=== PATIENT | female | born 1940 | race Caucasian/White ===

== ENCOUNTER → 2016-08-22 | Outpatient (CLI) | payer MEDICARE, BC ==
--- NOTE | 2016-08-22 14:01 | CT ---
EXAMINATION TYPE: CT sinus wo con DATE OF EXAM: 08/22/2016 COMPARISON: 05/20/2013 HISTORY: 76-year-old female with pain, Chronic Sinusitis CT DLP: 624.20 mGycm Automated exposure control for dose reduction was used. TECHNIQUE: Noncontrast axial views of the paranasal sinuses were obtained. Coronal reconstructions pe rformed. FINDINGS: The frontal, ethmoid, maxillary and sphenoid sinuses are clear and well pneumatized. There is no mucosal thickening or air-fluid level. Reactive eliza- osteogenesis is not seen. There is no destruction of the osseous vivas of the paranasal sinuses. THE NASAL CAVITY: Previous medial maxillary antrectomies. The osteomeatal complexes are patent. There is cerebral atrophy and hypodensity within the posterior right frontal lobe which was partially visualized on 05/20/2013 as well compatible with old infarct. Orbits and globes have a normal appeara nce. The mastoid air cells and middle ear cavities are well pneumatized. Reformatted images confirm above findings. IMPRESSION: Prior FESS. No significant paranasal sinus disease seen. 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
== END | disposition home or self-care (01) ==
LOC: RADCTMAIN 13:24
PROVIDERS: ATTEND Otolaryngology
DX: J32.9 Chronic sinusitis, unspecified (principal)
CPT/HCPCS: 70486

== ENCOUNTER → 2016-10-03 | Outpatient (CLI) | payer MEDICARE, BC ==
--- NOTE | 2016-10-04 12:53 | CONS ---
DATE OF SERVICE: 10/03/2016 A 76-year-old lady had been evaluated in the sleep center for obstructive sleep apnea-hypopnea syndrome. HISTORY OF PRESENT ILLNESS/SLEEP-WAKE EVALUATION: Patient had been diagnosed with obstructive sleep apnea around 2009, at that time was started on treatment with CPAP and has lost weight and felt that she improved her breathing and stopped using her equipment in 2012. Recently, her daughter slept with her during vacation and daughter showed that she possibly still has some breath problem during the sleep. SLEEP SCHEDULE: Her sleep schedule is not very regular. She is retired and can go to bed at anytime. FALLING ASLEEP: Sometimes has problem with falling asleep. No TV in bedroom. DURING SLEEP: She has very restless sleep and that is why her does not sleep with her in one bed subsequently because she sleeps by herself, no clear information about her snoring at the present time, but she has awakenings with nocturia, restless legs, positive history of sleep talking. She wakes up from sleep about 3 times with one episode of nocturia. No history of hypnagogic hallucination, sleep paralysis or cataplexy. [place] sleepiness scale is 3. PAST MEDICAL HISTORY: Positive for TIA, depression, anxiety, allergy, restless legs. PAST SURGICAL HISTORY: Tonsillectomy, appendectomy, cholecystectomy, hysterectomy, bladder suspension, rotator cuff surgery, hiatal hernia. MEDICATIONS: Lexapro, losartan, atorvastatin, Plavix, nortriptyline, aspirin, Xanax, ropinirole, Singulair, Anna. SOCIAL HISTORY: Negative for smoking or using alcohol at the present time. FAMILY HISTORY: Hypertension, heart problems, arthritis, sinus headaches, cancer. REVIEW OF SYSTEMS: Awakenings from sleep, tiredness during the day. No fevers. No double vision. No recent chest pain. No shortness of breath. No abdominal pain. No bleeding episodes. No blood in urine. No seizure episodes. PHYSICAL EXAMINATION:~ During physical exam, a 76-year-old lady without distress. VITAL SIGNS:~ BP 138/83, HR 94, RR 16, height 5 feet 2-1/2 inches. Weight 144. BMI 25. Neck 13-1/2 inches in circumference. Temperature 98.3. Oxygen saturation room air 95%. HEENT: PERRLA. EOMI. Evaluation of the oropharynx showed low position of soft palate, showed distance between soft palate and pharyngeal wall. Some restriction of the nasal breathing on the left side. NECK: Supple. No JVD. Thyroid is not palpable. LUNGS: Clear to percussion and to auscultation. Good air exchange. No wheezing or rhonchi. HEART: S1, S2, regular. No murmurs, gallops or rubs. ABDOMEN: Soft and nontender. Bowel sounds are present. No organomegaly appreciated. EXTREMITIES: No clubbing or cyanosis. MARRIAGE THERAPIST: Awake, alert and oriented x3. Cranial nerves 2 to 7 intact. There is no fasciculation or atrophy noted. No focal deficits observed. IMPRESSION: 1. Obstructive sleep apnea-hypopnea syndrome diagnosed in 2009. Patient stopped using her CPAP equipment in 2012. Presently wakes up from sleep multiple times with nocturia. According to her daughter may have abnormalities of respiration at the present time. 2. Restless leg syndrome on treatment with ropinirole. 3. History of transient ischemia attack. 4. Hyperlipidemia. 5. History of depression. 6. History of anxiety. 7. Status post carotid endarterectomy on the right side. 8. Allergies. 9. Status post tonsillectomy. 10. Status post appendectomy. 11. Status post cholecystectomy. 12. Status post hysterectomy. 13. Status post bladder suspension. 14. Status post surgical treatment for hiatal hernia. 15. Status post surgery for rotator cuff. PLAN: 1. Polysomnography for evaluation of patient's breathing during sleep. 2. CPAP/BiPAP titration if sleep study confirms obstructive sleep apnea- hypopnea syndrome. 3. Preferable position during sleep on the side. 4. No driving if patient feels any sleepiness. Patient is aware of civil and criminal liability for unsafe driving. 5. I will see patient for follow-up visit to explain results of the testing and following plan. Thank you very much for referring this patient for consultation. Sincerely, Rk White MD, PhD, FAASM Diplomat of [place] [employer] Sleep Medicine Board by [place] [employer] [place] [employer] [facility] [place] [facility]
== END | disposition home or self-care (01) ==
LOC: SLEEP 10:55
PROVIDERS: ATTEND Internal Medicine
DX: G47.33 Obstructive sleep apnea (adult) (pediatric) (principal); G25.81 Restless legs syndrome; E78.5 Hyperlipidemia, unspecified; T78.40XA Allergy, unspecified, initial encounter; F32.9 Major depressive disorder, single episode, unspecified; F41.9 Anxiety disorder, unspecified; Z86.73 Personal history of transient ischemic attack (TIA), and cerebral infarction without residual deficits; Z98.890 Other specified postprocedural states; Z79.899 Other long term (current) drug therapy; Z79.82 Long term (current) use of aspirin; Z79.02 Long term (current) use of antithrombotics/antiplatelets
CPT/HCPCS: 99211

== ENCOUNTER 2016-12-17 14:46 | Observation (INO) | payer MEDICARE, BC ==
[2016-12-17] MEDS ORDERED: ASPIRIN 81 MG PO STA (15:41)
[2016-12-17] MEDS ORDERED: NITROGLYCERIN SL TABS 0.4 MG TAB SUBLINGUAL STA ×3 (15:41)
[2016-12-17] MEDS ORDERED: NITROGLYCERIN OINT 1 INCH/GM PACKET TOPICAL STA (15:41)
--- NOTE | 2016-12-17 15:45 | ED ---
General Adult HPI - General Chief complaint: Chest Pain Stated complaint: hypertension Time Seen by Provider: 12/17/16 15:05 Source: patient, RN notes reviewed Mode of arrival: wheelchair Limitations: no limitations - History of Present Illness Initial comments: Patient is a pleasant 76-year-old female presenting to the emergency Department with mild chest pressure and hypertension. Patient states she did notice mild chest pressure around 9:30 this morning. This has been steady throughout most the day. Patient has had some similar symptoms previously however is unclear why. Patient did follow-up with her doctor today for a routine appointment and was told her blood pressure was high and to come to the emergency department. Patient does have a history of hypertension and recently had her blood pressure medication increased. Patient has been taking her medication. No associated dyspnea, nausea nausea, or diaphoresis. No radiation of discomfort. - Related Data Home Medications Medication Instructions Recorded Confirmed ALPRAZolam [Xanax] 0.25 mg PO DAILY PRN 12/17/16 12/17/16 Aspirin EC [Ecotrin Low Dose] 81 mg PO DAILY 12/17/16 12/17/16 Atorvastatin [Lipitor] 10 mg PO HS 12/17/16 12/17/16 Clopidogrel Bisulfate [Plavix] 75 mg PO Q48H 12/17/16 12/17/16 Escitalopram [Lexapro] 40 mg PO DAILY 12/17/16 12/17/16 Famotidine 40 mg PO DAILY 12/17/16 12/17/16 Fexofenadine HCl [Anna Allergy] 180 mg PO DAILY 12/17/16 12/17/16 Losartan [Cozaar] 50 mg PO DAILY 12/17/16 12/17/16 Montelukast [Singulair] 10 mg PO HS 12/17/16 12/17/16 Nortriptyline [Pamelor] 20 mg PO HS 12/17/16 12/17/16 rOPINIRole HCL [Requip] 1 mg PO BID 12/17/16 12/17/16 Allergies Allergy/AdvReac Type Severity Reaction Status Date / Time acetaminophen [From [place]] Allergy Rash/Hives Verified 12/17/16 15:40 hydrocodone [From [place]] Allergy Rash/Hives Verified 12/17/16 15:40 Sulfa (Sulfonamide Allergy Rash/Hives Verified 12/17/16 15:40 Antibiotics) aripiprazole [From Abilify] AdvReac Hallucinati Verified 12/17/16 15:40 ons banana AdvReac Nausea & Verified 12/17/16 15:40 Vomiting & Diarrhea bupropion [From Wellbutrin] AdvReac Hallucinati Verified 12/17/16 15:40 ons codeine AdvReac Nausea & Verified 12/17/16 15:40 Vomiting morphine AdvReac Nausea & Verified 12/17/16 15:40 Vomiting propoxyphene [From Darvon] AdvReac Nausea & Verified 12/17/16 15:40 Vomiting Review of Systems ROS Statement: Those systems with pertinent positive or pertinent negative responses have been documented in the HPI. ROS Other: All systems not noted in ROS Statement are negative. Constitutional: Denies: fever Eyes: Denies: eye pain ENT: Denies: ear pain Respiratory: Denies: cough, dyspnea Cardiovascular: Reports: chest pain Endocrine: Denies: fatigue Gastrointestinal: Denies: abdominal pain Genitourinary: Denies: dysuria Musculoskeletal: Denies: back pain Skin: Denies: rash Neurological: Denies: weakness Past Medical History Past Medical History: GERD/Reflux, Hyperlipidemia, Hypertension Additional Past Medical History / Comment(s): occluded carotid right artery, RLS , seasonal allergies History of Any Multi-Drug Resistant Organisms: None Reported Past Surgical History: Appendectomy, Cholecystectomy, Hysterectomy, Joint Replacement, Tonsillectomy Additional Past Surgical History / Comment(s): bilateral hips Past Psychological History: Depression Smoking Status: Former smoker Past Alcohol Use History: None Reported Past Drug Use History: None Reported General Exam Limitations: no limitations General appearance: alert, in no apparent distress Head exam: Present: atraumatic Eye exam: Present: normal appearance, PERRL ENT exam: Present: normal oropharynx Neck exam: Present: normal inspection Respiratory exam: Present: normal lung sounds bilaterally. Absent: chest wall tenderness Cardiovascular Exam: Present: regular rate, normal rhythm Expanded Peripheral pulses: 2+: Radial (R), Radial (L), Dorsalis Pedis (R), Dorsalis Pedis (L) GI/Abdominal exam: Present: soft. Absent: tenderness Extremities exam: Present: normal inspection. Absent: pedal edema, calf tenderness Neurological exam: Present: alert Psychiatric exam: Present: normal affect, normal mood Skin exam: Present: normal color Course Vital Signs 12/17/16 12/17/16 12/17/16 14:49 15:48 16:15 Temperature 98.6 F Pulse Rate 110 H 100 86 Respiratory 18 18 18 Rate Blood Pressure 220/128 195/105 189/119 O2 Sat by Pulse 99 98 99 Oximetry 12/17/16 16:27 Temperature Pulse Rate 116 H Respiratory 18 Rate Blood Pressure 159/89 O2 Sat by Pulse 94 L Oximetry EKG Findings - EKG Comments: EKG Findings:: Sinus tachycardia 108. CA 132. QRS 76. QT 336. QTc 450. Left axis. LVH criteria. No acute ST change. Inferior Q waves. Medical Decision Making - Medical Decision Making Patient reexamined and resting comfortably in bed. Blood pressure has somewhat improved. Patient updated on results and plan. Case discussed in detail with Dr. alvarado, who will admit for Dr. Wallace. - Lab Data Result diagrams: 12/17/16 15:07 12/17/16 15:07 Lab Results 12/17/16 12/17/16 12/17/16 Range/Units 15:07 15:07 15:07 WBC 9.9 (3.8-10.6) k/uL RBC 5.09 (3.80-5.40) m/uL Hgb 14.8 (11.4-16.0) gm/dL Hct 47.3 H (34.0-46.0) % MCV 93.0 (80.0-100.0) fL MCH 29.0 (25.0-35.0) pg MCHC 31.2 (31.0-37.0) g/dL RDW 14.8 (11.5-15.5) % Plt Count 220 (150-450) k/uL Neutrophils % 63 % Lymphocytes % 27 % Monocytes % 7 % Eosinophils % 1 % Basophils % 0 % Neutrophils # 6.2 (1.3-7.7) k/uL Lymphocytes # 2.7 (1.0-4.8) k/uL Monocytes # 0.7 (0-1.0) k/uL Eosinophils # 0.1 (0-0.7) k/uL Basophils # 0.0 (0-0.2) k/uL Hypochromasia Slight PT (9.0-12.0) sec INR (<1.2) APTT (22.0-30.0) sec Sodium 139 (137-145) mmol/L Potassium 4.6 (3.5-5.1) mmol/L Chloride 102 (98-107) mmol/L Carbon Dioxide 30 (22-30) mmol/L Anion Gap 7 mmol/L BUN 15 (7-17) mg/dL Creatinine 0.70 (0.52-1.04) mg/dL Est GFR (MDRD) Af Amer >60 (>60 ml/min/1.73 sqM) Est GFR (MDRD) Non-Af >60 (>60 ml/min/1.73 sqM) Glucose 86 (74-99) mg/dL Calcium 10.4 H (8.4-10.2) mg/dL Magnesium 1.5 L (1.6-2.3) mg/dL Total Bilirubin 0.4 (0.2-1.3) mg/dL AST 31 (14-36) U/L ALT 54 H (9-52) U/L Alkaline Phosphatase 83 (38-126) U/L Total Creatine Kinase 57 (30-135) U/L CK-MB (CK-2) 2.0 (0.0-2.4) ng/mL CK-MB (CK-2) Rel Index 3.5 Troponin I <0.012 (0.000-0.034) ng/mL Total Protein 6.7 (6.3-8.2) g/dL Albumin 4.1 (3.5-5.0) g/dL 12/17/16 Range/Units 15:07 WBC (3.8-10.6) k/uL RBC (3.80-5.40) m/uL Hgb (11.4-16.0) gm/dL Hct (34.0-46.0) % MCV (80.0-100.0) fL MCH (25.0-35.0) pg MCHC (31.0-37.0) g/dL RDW (11.5-15.5) % Plt Count (150-450) k/uL Neutrophils % % Lymphocytes % % Monocytes % % Eosinophils % % Basophils % % Neutrophils # (1.3-7.7) k/uL Lymphocytes # (1.0-4.8) k/uL Monocytes # (0-1.0) k/uL Eosinophils # (0-0.7) k/uL Basophils # (0-0.2) k/uL Hypochromasia PT 10.1 (9.0-12.0) sec INR 1.0 (<1.2) APTT 23.4 (22.0-30.0) sec Sodium (137-145) mmol/L Potassium (3.5-5.1) mmol/L Chloride (98-107) mmol/L Carbon Dioxide (22-30) mmol/L Anion Gap mmol/L BUN (7-17) mg/dL Creatinine (0.52-1.04) mg/dL Est GFR (MDRD) Af Amer (>60 ml/min/1.73 sqM) Est GFR (MDRD) Non-Af (>60 ml/min/1.73 sqM) Glucose (74-99) mg/dL Calcium (8.4-10.2) mg/dL Magnesium (1.6-2.3) mg/dL Total Bilirubin (0.2-1.3) mg/dL AST (14-36) U/L ALT (9-52) U/L Alkaline Phosphatase (38-126) U/L Total Creatine Kinase (30-135) U/L CK-MB (CK-2) (0.0-2.4) ng/mL CK-MB (CK-2) Rel Index Troponin I (0.000-0.034) ng/mL Total Protein (6.3-8.2) g/dL Albumin (3.5-5.0) g/dL - Radiology Data Radiology results: image reviewed (Chest x-ray shows no acute pulmonary process. ) Disposition Clinical Impression: Chest pain, Hypertension Disposition: ADMITTED IP TO THIS [facility] Referrals: Lan Wallace MD [Primary Care Provider] - 1-2 days Decision Time: 16:43
[2016-12-17] MEDS ORDERED: METOPROLOL TARTRATE 25 MG TAB PO STA (15:46)
[2016-12-17 15:53] LABS: Basophils % (A) 0 %; CH 28.9; CHCM 31.2; Eosinophils # (A) 0.1 k/uL (0-0.7); Eosinophils % (A) 1 %; HCT 47.3 % (34.0-46.0); HDW 2.34; HGB 14.8 gm/dL (11.4-16.0); Hypochromasia Slight; Luc # (Auto) 0.23; Luc % (Auto) 2; Lymphocytes # (A) 2.7 k/uL (1.0-4.8); Lymphocytes % (A) 27 %; MCHC 31.2 g/dL (31.0-37.0); Mean Platelet Volume 7.1; Monocytes # (A) 0.7 k/uL (0-1.0); Monocytes % (A) 7 %; Neutrophils # (A) 6.2 k/uL (1.3-7.7); Neutrophils % (A) 63 %; RBC 5.09 m/uL (3.80-5.40); RDW 14.8 % (11.5-15.5); WBC 9.9 k/uL (3.8-10.6); WBC (Perox) 10.36
[2016-12-17 16:00] LABS: Partial Thromboplastin Time 23.4 sec (22.0-30.0); Prothrombin Time 10.1 sec (9.0-12.0)
[2016-12-17 16:02] LABS: ALT 54 U/L (9-52); AST 31 U/L (14-36); Alkaline Phosphatase 83 U/L (38-126); Anion Gap 7 mmol/L; Blood Urea Nitrogen 15 mg/dL (7-17); Calcium 10.4 mg/dL (8.4-10.2); Carbon Dioxide 30 mmol/L (22-30); Chloride 102 mmol/L (98-107); Glucose 86 mg/dL (74-99); Magnesium 1.5 mg/dL (1.6-2.3); Non-African American GFR(MDRD) >60 (>60 ml/min/1.73 sqM); Potassium 4.6 mmol/L (3.5-5.1); Sodium 139 mmol/L (137-145); Total Bilirubin 0.4 mg/dL (0.2-1.3); Total Protein 6.7 g/dL (6.3-8.2)
[2016-12-17] MEDS ORDERED: MAGNESIUM OXIDE 400 MG TAB PO STA (16:05)
[2016-12-17 16:11] LABS: Creatine Kinase 57 U/L (30-135)
[2016-12-17 16:24] LABS: Troponin I <0.012 ng/mL (0.000-0.034)
--- NOTE | 2016-12-17 16:25 | XR ---
EXAMINATION TYPE: XR chest 2V DATE OF EXAM: 12/17/2016 COMPARISON: 11/01/2011 INDICATION: Chest pain elevated blood pressure TECHNIQUE: Frontal and lateral views of the chest are obtained. FINDINGS: The heart size is normal. The pulmonary vasculature is normal. The lungs are clear. Postsurgical changes are at the right shoulder. EKG leads overlie the chest. IMPRESSION: 1. No acute pulmonary process.
[2016-12-17] MEDS ORDERED: NITROGLYCERIN SL TABS 0.4 MG TAB SUBLINGUAL PRN (16:43)
[2016-12-17] MEDS: NITROGLYCERIN OINT 1 INCH/GM PACKET TOPICAL SCH (18:08)
[2016-12-17] MEDS ORDERED: ALPRAZolam 0.25 MG TAB PO PRN (19:14)
[2016-12-17] MEDS: METOPROLOL TARTRATE 25 MG TAB PO SCH (20:31)
[2016-12-17] MEDS: ACETAMINOPHEN TAB 325 MG TAB PO SCH (20:34)
--- NOTE | 2016-12-17 20:44 | P.HPIM ---
History of Present Illness H&P Date: 12/17/16 Chief Complaint: Chest pressure/hypertension This is a 76-year-old female patient of Dr. Lan Wallcae with chronic stable medical conditions that include GERD hyperlipidemia, restless leg syndrome, seasonal ALLERGIES, obstructive sleep apnea, depression, who presented to the emergency department after being seen in office by Dr. Suh today for an injection in her neck. Patient vital signs were taken she was found to be extremely hypertensive with systolic blood pressure in the 200s. Patient also noted early in the day she had some mild chest pressure which had been steady throughout most of the day. There was no radiation of the pain localized to the chest wall a bandlike pressure, no nausea vomiting shortness of breath or diaphoresis. Given these 2 sets of symptoms patient was directed by physician to be evaluated further and has been admitted for the same. REVIEW OF SYSTEMS GEN.: [ Tired] EYES: [None] HEENT: [Grinds her teeth] NECK: [Chronic neck and shoulder pain] RESPIRATORY: [Some shortness of breath] CARDIOVASCULAR: [Chest pain ] GASTROINTESTINAL: [GERD] GENITOURINARY: [Some urinary incontinence and some stool incontinence] MUSCULOSKELETAL: [Back pain] LYMPHATICS: [None] HEMATOLOGICAL: [None] PSYCHIATRY: [Depression and anxiety] NEUROLOGICAL: [History of headaches, restless leg syndrome] PAST MEDICAL HISTORY Past medical history: Past surgical history: Past psychological history: SOCIAL HISTORY: Additional psychological/social history: Smoking history: Former smoker smoked one pack per day for 30 years Alcohol use history: Denies Drug use history: Denies Illicit drug use: Denies Marital status: Living situation: Lives with Employment: FAMILY HISTORY: Mother: , colon cancer Father: , congestive heart failure One brother: Living, lung disease 3 sisters: All 3 sisters living, one sister has breast cancer HOME MEDICATION: Acetaminophen 650 mg by mouth 3 times a day Clopidogrel 75 mg by mouth daily Aspirin enteric-coated 81 mg by mouth at bedtime Losartan 100 mg by mouth daily Ropinirole 1 mg by mouth twice a day Nortriptyline 20 mg by mouth at bedtime Montelukast 10 mg by mouth at bedtime Famotidine 40 mg by mouth daily Lexapro 40 mg by mouth daily Atorvastatin 10 mg by mouth at bedtime Alprazolam 0.25 mg by mouth daily when necessary ALLERGIES: HYDROCODONE, SULFA, ARIPIPRAZOLE, [place] BUPROPION, CODEINE, MORPHINE, PROPOXYPHENE VITAL SIGNS: [Temperature 97.8, pulse 70, respirations 18, blood pressure 169/84 , oxygen saturation 95% on room air. BMI 24.3 kg/m GENERAL: [Average built, sitting up, comfortable]. EYES: [Pupils equal. Conjunctiva michela]l. HEENT: [External appearance of nose and ears normal, oral cavity grossly normal] . NECK: [JVD not raised; masses not palpable]. HEART: [First and second heart sounds are normal; no edema]. LUNGS:[ Respiratory rate normal; diminished bases to auscultation]. ABDOMEN: [Soft, nontender, liver spleen not palpable, no masses palpable]. LYMPHATICS: [No lymph nodes palpable in the axilla and neck]. PSYCH: [Alert and oriented x3; mood and affect michela]l. NEUROLOGICAL: [Cranial nerves grossly intact; no facial asymmetry, power and sensation grossly intact]. INVESTIGATIONS: CBC grossly unremarkable, calcium 10.4, magnesium 1.5, ALTs 54, troponin less than 0.012 Chest x-ray: No acute pulmonary process ASSESSMENT: -Stable angina in a patient with known history of anxiety -Hypertensive urgency in a patient with known hypertension and had a recent adjustment to her medications -Obstructive sleep apnea patient does not use a CPAP machine currently -Restless leg syndrome -Seasonal ALLERGIES -GERD -Hyperlipidemia -Anxiety depression not otherwise specified PLAN: Home medications reordered, cardiology consulted. Plan of care discussed in detail with the patient at the bedside questions answered she is in agreement we will follow closely. Past Medical History Past Medical History: GERD/Reflux, Hyperlipidemia, Hypertension Additional Past Medical History / Comment(s): occluded carotid right artery, RLS , seasonal allergies History of Any Multi-Drug Resistant Organisms: None Reported Past Surgical History: Appendectomy, Cholecystectomy, Hysterectomy, Joint Replacement, Tonsillectomy Additional Past Surgical History / Comment(s): bilateral hips Past Psychological History: Depression Smoking Status: Former smoker Past Alcohol Use History: None Reported Past Drug Use History: None Reported Medications and Allergies Home Medications Medication Instructions Recorded Confirmed Type ALPRAZolam [Xanax] 0.25 mg PO DAILY PRN 12/17/16 12/17/16 History Acetaminophen [Tylenol] 650 mg PO TID 12/17/16 12/17/16 History Aspirin EC [Ecotrin Low Dose] 81 mg PO HS 12/17/16 12/17/16 History Atorvastatin [Lipitor] 10 mg PO HS 12/17/16 12/17/16 History Clopidogrel Bisulfate [Plavix] 75 mg PO DAILY 12/17/16 12/17/16 History Escitalopram [Lexapro] 40 mg PO DAILY 12/17/16 12/17/16 History Famotidine 40 mg PO DAILY 12/17/16 12/17/16 History Losartan [Cozaar] 100 mg PO DAILY 12/17/16 12/17/16 History Montelukast [Singulair] 10 mg PO HS 12/17/16 12/17/16 History Nortriptyline [Pamelor] 20 mg PO HS 12/17/16 12/17/16 History rOPINIRole HCL [Requip] 1 mg PO BID 12/17/16 12/17/16 History Allergies Allergy/AdvReac Type Severity Reaction Status Date / Time acetaminophen [From [place]] Allergy Rash/Hives Verified 12/17/16 15:40 hydrocodone [From [place]] Allergy Rash/Hives Verified 12/17/16 15:40 Sulfa (Sulfonamide Allergy Rash/Hives Verified 12/17/16 15:40 Antibiotics) aripiprazole [From Abilify] AdvReac Hallucinati Verified 12/17/16 15:40 ons banana AdvReac Nausea & Verified 12/17/16 15:40 Vomiting & Diarrhea bupropion [From Wellbutrin] AdvReac Hallucinati Verified 12/17/16 15:40 ons codeine AdvReac Nausea & Verified 12/17/16 15:40 Vomiting morphine AdvReac Nausea & Verified 12/17/16 15:40 Vomiting propoxyphene [From Darvon] AdvReac Nausea & Verified 12/17/16 15:40 Vomiting Physical Exam Vitals: Vital Signs Temp Pulse Pulse Resp BP BP Pulse Ox 12/17/16 17:35 98 F 66 15 152/90 97 12/17/16 17:11 97.8 F 70 18 169/84 95 12/17/16 16:55 101 H 16 161/102 97 12/17/16 16:27 116 H 18 159/89 94 L 12/17/16 16:15 86 18 189/119 99 12/17/16 15:48 100 18 195/105 98 12/17/16 14:49 98.6 F 110 H 18 220/128 99 Intake and Output 12/17/16 12/17/16 12/17/16 06:59 14:59 22:59 Other: Weight 64.41 kg 64.3 kg Patient Weight 12/18/16 06:59 Weight 64.3 kg Results CBC & Chem 7: 12/17/16 15:07 12/17/16 15:07 Labs: Abnormal Lab Results - Last 24 Hours (Table) 12/17/16 12/17/16 Range/Units 15:07 15:07 Hct 47.3 H (34.0-46.0) % Calcium 10.4 H (8.4-10.2) mg/dL Magnesium 1.5 L (1.6-2.3) mg/dL ALT 54 H (9-52) U/L
[2016-12-17] MEDS ORDERED: ATORVASTATIN 10 MG TAB PO SCH (21:00)
[2016-12-17] MEDS ORDERED: MONTELUKAST 10 MG TAB PO SCH (21:00)
[2016-12-17] MEDS ORDERED: NORTRIPTYLINE 10 MG CAP PO SCH (21:00)
[2016-12-17] MEDS ORDERED: NON-FORMULARY DRUG (Aspirin Ec 81 MG) PO SCH (21:00)
[2016-12-17 21:50] LABS: Creatine Kinase 46 U/L (30-135)
[2016-12-17 22:03] LABS: Creatine Kinase MB 1.5 ng/mL (0.0-2.4); Troponin I <0.012 ng/mL (0.000-0.034)
--- NOTE | 2016-12-17 23:04 | HP ---
HISTORY AND PHYSICAL DATE OF ADMISSION: 12/17/2016 ATTENDING NOTE: This patient was seen and examined by me. I discussed with my nurse practitioner, Ms. Wagoner. The patient presented to Dr. Suh for a steroid injection. She was found to be extremely hypertensive, blood pressure about 200 systolic, also having some chest pain, presented for that. PHYSICAL EXAMINATION: VITAL SIGNS: On presentation, temperature 98.6, pulse 110, respirations 18, blood pressure 220/128, pulse ox 99% on room air. LUNGS: Decreased breath sounds. CARDIOVASCULAR: First and second sounds normal. INVESTIGATIONS: White count 9.9, hemoglobin 14.8. Potassium 4.6, BUN and creatinine are normal. Troponin x2 negative. EKG: Sinus tachycardia. ASSESSMENT: 1. Anterior chest wall pain in a patient with known cardiac risk factors. 2. Gastroesophageal reflux disease. 3. Hyperlipidemia. 4. Essential hypertension with urgency, present on admission. 5. Obstructive sleep apnea. 6. Primary osteoarthritis. 7. Spinal stenosis. 8. Chronically occluded right carotid artery. 9. Restless legs syndrome. 10.Obstructive sleep apnea, uses continuous positive airway pressure. 11.Seasonal allergies. 12.Depression, not otherwise specified. PLAN: Serial cardiac enzymes are in place. Cardiology was consulted. The patient is on aspirin and nitro paste. Care was discussed with the patient. MMODL / IJN: [id number] /
[2016-12-18] MEDS: ACETAMINOPHEN TAB 325 MG TAB PO SCH ×2 (03:05→16:35)
[2016-12-18 03:54] LABS: Cholesterol 104 mg/dL (<200); HDL Cholesterol 74 mg/dL (40-60)
[2016-12-18 04:00] LABS: Creatine Kinase 49 U/L (30-135)
[2016-12-18 04:14] LABS: Creatine Kinase MB 1.6 ng/mL (0.0-2.4); Troponin I <0.012 ng/mL (0.000-0.034)
[2016-12-18] MEDS: NITROGLYCERIN OINT 1 INCH/GM PACKET TOPICAL SCH ×2 (05:44→08:12)
[2016-12-18 08:18] VITALS: RESP 16
[2016-12-18] MEDS ORDERED: AMINOPHYLLINE 500 MG/20 ML VIAL IV PRN (08:49)
[2016-12-18] MEDS ORDERED: REGADENOSON 0.4 MG/5 ML SYRINGE IV ONE (08:49)
[2016-12-18] MEDS ORDERED: ENOXAPARIN 40 MG/0.4 ML SYRINGE SQ SCH (09:00)
[2016-12-18] MEDS ORDERED: ASPIRIN 325 MG TAB PO SCH (09:00)
[2016-12-18] MEDS ORDERED: LOSARTAN 50 MG TAB PO SCH (09:00)
[2016-12-18] MEDS ORDERED: ASPIRIN 81 MG PO SCH (09:00)
[2016-12-18] MEDS ORDERED: FAMOTIDINE 20 MG TAB PO SCH (09:00)
[2016-12-18] MEDS ORDERED: CLOPIDOGREL 75 MG TAB PO SCH (09:00)
[2016-12-18] MEDS ORDERED: ESCITALOPRAM 20 MG TAB PO SCH (09:00)
[2016-12-18] MEDS ORDERED: HYDROCHLOROTHIAZIDE 25 MG TAB PO SCH (09:00)
[2016-12-18] MEDS ORDERED: LORATADINE 10 MG TAB PO SCH (09:00)
--- NOTE | 2016-12-18 11:47 | NM ---
EXAMINATION TYPE: NM stress lexiscan cardiolite DATE OF EXAM: 12/18/2016 COMPARISON: NONE HISTORY: Chest pain TECHNIQUE: After the intravenous administration of 10.4 mCi Tc 99m Sestamibi - Cardiolite resting SP ECT images acquired 45 minutes post injection. The patient received 0.4mg Lexiscan, 30 mCi Tc 99m Sestamibi - Stress images obtained 30 minutes post injection FINDINGS: Review of stress and rest SPECT images demonstrates a single segment apical defect appears slightly m ore pronounced on stress imaging and is most attributable to physiologic apical thinning. Gated anal ysis shows symmetric wall motion on stress and rest images with an estimated left ventricular ejectio n fraction of 62 %. TID of 1.11. IMPRESSION: 1. Single segment apical defect more pronounced on stress imaging that is favored to represent physio logic apical thinning rather than reversible perfusion defect as the remainder of exam is unremarkabl e. 2. Estimated left ventricular ejection fraction of 62%.
[2016-12-18 12:11] VITALS: PULSE 76; TEMP 98.6
[2016-12-18] MEDS: METOPROLOL TARTRATE 25 MG TAB PO SCH (12:24)
--- NOTE | 2016-12-18 12:35 | P.CRDCN ---
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 She follows regularly with Dr. Benitez as an outpatient. She presents to the hospital with complaints of chest pressure and high blood pressure. She states she was at physical therapy yesterday getting massage for her neck and then she presented to Dr. Suh's office for her routine injections in her neck for chronic neck strain. Upon arrival to that appointment her blood pressure was extremely elevated and he sent her to the emergency room. She states she developed chest pressure after being told blood pressure was high and chest pain persisted until she arrived to the hospital. She describes this pain as a pressure type feeling across the entire chest not associated with shortness of breath, dizziness, palpitations, diaphoresis or nausea. She relates this to a typical anxiety attack which she does have a history of. She denies history of coronary artery disease and states she has never suffered a myocardial infarction that she is aware of. Her chest pain has subsided and she is resting comfortably in bed. Blood pressure on arrival 220/128. Current cardiac medications include losartan 100 mg, Lipitor, aspirin and Plavix. She states she saw her PCP approximately a month ago and at that time had elevated blood pressure and he increased her losartan from 50-100 mg daily. EKG reveals sinus mechanism with no acute ST or T-wave abnormalities with moderate criteria for LVH. Review of Systems CONSTITUTIONAL: Denies fever. Denies chills. EYES: Denies blurred vision. Denies vision changes. Denies eye pain. EARS, NOSE, MOUTH & THROAT: Denies headache. Denies sore throat. Denies ear pain. CARDIOVASCULAR: Complains of one episode of chest tightness, resolved. Denies shortness of breath. Denies orthopnea. Denies PND. Denies palpitations. RESPIRATORY: Denies cough. GASTROINTESTINAL: Denies abdominal pain. Denies diarrhea. Denies constipation. Denies nausea. Denies vomiting. MUSCULOSKELETAL: Denies myalgias. INTEGUMENTARY: Denies pruitis. Denies rash. NEUROLOGIC: Denies numbness. Denies tingling. Denies weakness. PSYCHIATRIC: And plans of intermittent anxiety. Denies depression. ENDOCRINE: Denies fatigue. Denies weight change. Denies polydipsia. Denies polyurina. GENITOURINARY: Denies burning, hematuria or urgency with micturation. HEMATOLOGIC: Denies history of anemia. Denies bleeding. Past Medical History Past Medical History: CVA/TIA, GERD/Reflux, Hyperlipidemia, Hypertension, Osteoarthritis (OA), Sleep Apnea/CPAP/BIPAP Additional Past Medical History / Comment(s): DDD, DJD, SPINAL STENOSIS, occluded carotid right artery, RLS, seasonal allergies.CPAP USED. HAD GERD IN PAST NONE SINCE HIATAL HERNIA SX.,CARDIOMYOPATHY History of Any Multi-Drug Resistant Organisms: None Reported Past Surgical History: Adenoidectomy, Appendectomy, Bladder Surgery, Cholecystectomy, Hysterectomy, Joint Replacement, Tonsillectomy Additional Past Surgical History / Comment(s): bilateral hip replacments, partial hysterectomy-still has ovaries, sinus sx,niko cataracts-lens implants, hiatal hernia sx Past Anesthesia/Blood Transfusion Reactions: No Reported Reaction Smoking Status: Former smoker - Past Family History Mother Family Medical History: Cancer Additional Family Medical History / Comment(s): colon cancer Father Family Medical History: Congestive Heart Failure (CHF) Medications and Allergies Home Medications Medication Instructions Recorded Confirmed Type ALPRAZolam [Xanax] 0.25 mg PO DAILY PRN 12/17/16 12/17/16 History Acetaminophen [Tylenol] 650 mg PO TID 12/17/16 12/17/16 History Aspirin EC [Ecotrin Low Dose] 81 mg PO HS 12/17/16 12/17/16 History Atorvastatin [Lipitor] 10 mg PO HS 12/17/16 12/17/16 History Clopidogrel Bisulfate [Plavix] 75 mg PO DAILY 12/17/16 12/17/16 History Escitalopram [Lexapro] 40 mg PO DAILY 12/17/16 12/17/16 History Famotidine 40 mg PO DAILY 12/17/16 12/17/16 History Losartan [Cozaar] 100 mg PO DAILY 12/17/16 12/17/16 History Montelukast [Singulair] 10 mg PO HS 12/17/16 12/17/16 History Nortriptyline [Pamelor] 20 mg PO HS 12/17/16 12/17/16 History rOPINIRole HCL [Requip] 1 mg PO BID 12/17/16 12/17/16 History Allergies Allergy/AdvReac Type Severity Reaction Status Date / Time acetaminophen [From [place]] Allergy Rash/Hives Verified 12/17/16 15:40 hydrocodone [From [place]] Allergy Rash/Hives Verified 12/17/16 15:40 Sulfa (Sulfonamide Allergy Rash/Hives Verified 12/17/16 15:40 Antibiotics) aripiprazole [From Abilify] AdvReac Hallucinati Verified 12/17/16 15:40 ons banana AdvReac Nausea & Verified 12/17/16 15:40 Vomiting & Diarrhea bupropion [From Wellbutrin] AdvReac Hallucinati Verified 12/17/16 15:40 ons codeine AdvReac Nausea & Verified 12/17/16 15:40 Vomiting morphine AdvReac Nausea & Verified 12/17/16 15:40 Vomiting propoxyphene [From Darvon] AdvReac Nausea & Verified 12/17/16 15:40 Vomiting Physical Exam Vitals: Vital Signs Temp Pulse Pulse Resp BP BP Pulse Ox 12/18/16 07:41 96 12/18/16 04:53 98 F 60 18 140/72 97 12/18/16 00:00 98 F 65 18 137/74 94 L 12/17/16 20:00 97.6 F 72 18 145/74 92 L 12/17/16 17:35 98 F 66 15 152/90 97 12/17/16 17:11 97.8 F 70 18 169/84 95 12/17/16 16:55 101 H 16 161/102 97 12/17/16 16:27 116 H 18 159/89 94 L 12/17/16 16:15 86 18 189/119 99 12/17/16 15:48 100 18 195/105 98 12/17/16 14:49 98.6 F 110 H 18 220/128 99 Intake and Output 12/17/16 12/18/16 12/18/16 22:59 06:59 14:59 Other: Weight 64.3 kg GENERAL: This is a 76-year-old female in no apparent distress at the time of my examination. HEENT: Head is atraumatic, normocephalic. Pupils are equal, round. Sclerae anicteric. Conjunctivae are clear. Mucous membranes of the mouth are moist. Neck is supple. There is no jugular venous distention. No carotid bruit is heard. LUNGS: Clear to auscultation no wheezes, rales or rhonchi. No chest wall tenderness is noted on palpation or with deep breathing. HEART: Regular rate and rhythm with systolic ejection murmur at the base, no rubs or gallops. S1 and S2 heard. ABDOMEN: Soft, nontender. Bowel sounds are heard. No organomegaly noted. EXTREMITIES: 2+ peripheral pulses with no evidence of peripheral edema and no calf tenderness noted. NEUROLOGIC: Patient is awake, alert and oriented x3. Results 12/17/16 15:07 12/17/16 15:07 Cardiac Enzymes 12/17/16 12/17/16 12/17/16 Range/Units 15:07 15:07 21:13 AST 31 (14-36) U/L CK-MB (CK-2) 2.0 1.5 (0.0-2.4) ng/mL Troponin I <0.012 <0.012 (0.000-0.034) ng/mL 12/18/16 Range/Units 02:38 AST (14-36) U/L CK-MB (CK-2) 1.6 (0.0-2.4) ng/mL Troponin I <0.012 (0.000-0.034) ng/mL Coagulation 12/17/16 Range/Units 15:07 PT 10.1 (9.0-12.0) sec APTT 23.4 (22.0-30.0) sec Lipids 12/18/16 Range/Units 02:38 Triglycerides 95 (<150) mg/dL Cholesterol 104 (<200) mg/dL HDL Cholesterol 74 H (40-60) mg/dL CBC 12/17/16 Range/Units 15:07 WBC 9.9 (3.8-10.6) k/uL RBC 5.09 (3.80-5.40) m/uL Hgb 14.8 (11.4-16.0) gm/dL Hct 47.3 H (34.0-46.0) % Plt Count 220 (150-450) k/uL Comprehensive Metabolic Panel 12/17/16 Range/Units 15:07 Sodium 139 (137-145) mmol/L Potassium 4.6 (3.5-5.1) mmol/L Chloride 102 (98-107) mmol/L Carbon Dioxide 30 (22-30) mmol/L BUN 15 (7-17) mg/dL Creatinine 0.70 (0.52-1.04) mg/dL Glucose 86 (74-99) mg/dL Calcium 10.4 H (8.4-10.2) mg/dL AST 31 (14-36) U/L ALT 54 H (9-52) U/L Alkaline Phosphatase 83 (38-126) U/L Total Protein 6.7 (6.3-8.2) g/dL Albumin 4.1 (3.5-5.0) g/dL Current Medications Generic Name Dose Route Start Last Admin Trade Name Freq PRN Reason Stop Dose Admin Acetaminophen 650 mg 12/17/16 22:00 12/18/16 03:05 Tylenol Tab PO 650 mg TID SENG Administration Alprazolam 0.25 mg 12/17/16 19:14 Xanax PO DAILY PRN Anxiety Aspirin 325 mg 12/18/16 09:00 Aspirin PO DAILY [facility] Atorvastatin Calcium 10 mg 12/17/16 21:00 12/17/16 20:31 Lipitor PO 10 mg HS [facility] Administration Clopidogrel Bisulfate 75 mg 12/18/16 09:00 Plavix PO DAILY [facility] Enoxaparin Sodium 40 mg 12/18/16 09:00 Lovenox SQ DAILY [facility] Escitalopram Oxalate 40 mg 12/18/16 09:00 Lexapro PO DAILY [facility] Famotidine 40 mg 12/18/16 09:00 Pepcid PO DAILY [facility] Loratadine 10 mg 12/18/16 09:00 Claritin PO DAILY [facility] Losartan Potassium 100 mg 12/18/16 09:00 Cozaar PO DAILY [facility] Metoprolol Tartrate 25 mg 12/17/16 21:00 12/17/16 20:31 Lopressor PO 25 mg BID [facility] Administration Montelukast Sodium 10 mg 12/17/16 21:00 12/17/16 20:31 Singulair PO 10 mg HS [facility] Administration Nitroglycerin 1 inch 12/17/16 18:00 12/18/16 05:44 Nitro-Bid Oint TOPICAL Not Given Q6HR [facility] Nitroglycerin 0.4 mg 12/17/16 16:43 Nitrostat SUBLINGUAL Q5M PRN Chest Pain Nortriptyline HCl 20 mg 12/17/16 21:00 12/17/16 20:31 Pamelor PO 20 mg HS SENG Administration Ropinirole HCl 1 mg 12/17/16 21:00 12/17/16 20:30 Requip PO 1 mg BID SENG Administration Intake and Output 12/17/16 12/18/16 12/18/16 22:59 06:59 14:59 Other: Weight 64.3 kg 12/17/16 15:07 12/17/16 15:07 Assessment and Plan Assessment: ASSESSMENT 1. Chest pain, atypical 2. Hypertensive urgency 3. Dyslipidemia 4. Peripheral vascular disease PLAN Obtain 2-D echocardiogram and Doppler study to assess cardiac structure and function. Perform lexiscan stress test to assess for reversible coronary ischemia. Add hydrochlorothiazide 25 mg daily for blood pressure control. Follow-up with Dr. Benitez in 1-2 weeks. Nurse Practitioner note has been reviewed, I agree with a documented findings and plan of care. Patient was seen and examined.
--- NOTE | 2016-12-18 13:18 | ECHOF ---
Referral Reason:cp, htn MEASUREMENTS -------- HEIGHT: 162.6 cm WEIGHT: 64.0 kg BP: 140/72 RVIDd: 2.8 cm (< 3.3) IVSd: 1.0 cm (0.6 - 1.1) LVIDd: 4.5 cm (3.9 - 5.3) LVPWd: 1.2 cm (0.6 - 1.1) IVSs: 1.7 cm LVIDs: 3.1 cm LVPWs: 1.8 cm LA Diam: 3.2 cm (2.7 - 3.8) LAESV Index (A-L): 27.63 ml/m Ao Diam: 2.9 cm (2.0 - 3.7) AV Cusp: 2.1 cm (1.5 - 2.6) MV EXCURSION: 11.844 mm (> 18.000) MV EF SLOPE: 40 mm/s (70 - 150) EPSS: 0.3 cm MV E Deon: 0.99 m/s MV DecT: 240 ms MV A Deon: 1.06 m/s MV E/A Ratio: 0.93 FINDINGS -------- Sinus rhythm. This was a technically good study. The left ventricular size is normal. There is borderline concentric left ventricular hypertrophy. Overall left ventricular systolic function is normal with, an EF between 55 - 60 %. The right ventricle is normal in size. Normal LA size by volume 22+/-6 ml/m2. The right atrium is normal in size. The aortic valve is trileaflet, and appears structurally normal. No aortic stenosis or regurgitation. The mitral valve leaflets are mildly thickened. [id number] mitral regurgitation is present. The tricuspid valve appears structurally normal. Trace/mild (physiologic) pulmonic regurgitation. The aortic root size is normal. Normal inferior vena cava with normal inspiratory collapse consistent with estimated right atrial pre ssure of 5 mmHg. There is no pericardial effusion. CONCLUSIONS -------- 1. Sinus rhythm. 2. This was a technically good study. 3. There is borderline concentric left ventricular hypertrophy. 4. Overall left ventricular systolic function is normal with, an EF between 55 - 60 %. 5. Normal LA size by volume 22+/-6 ml/m2. 6. The aortic valve is trileaflet, and appears structurally normal. No aortic stenosis or regurgitati on. 7. The mitral valve leaflets are mildly thickened. 8. [id number] mitral regurgitation is present. 9. The tricuspid valve appears structurally normal. 10. Trace/mild (physiologic) pulmonic regurgitation. 11. The aortic root size is normal. 12. Normal inferior vena cava with normal inspiratory collapse consistent with estimated right atrial pressure of 5 mmHg. 13. There is no pericardial effusion. DIRECTOR OF LEARNING: Miranda Holliday RDCS
--- NOTE | 2016-12-18 13:53 | EST ---
EXERCISE STRESS AGE: 76 SEX: F HT: 5'4" WT: 141 PROTOCOL: Lexiscan Cardiolite Stress Test HEART RATE REST: 69 BLOOD PRESSURE REST: 211/91 MAXIMUM HEART RATE ACHIEVED: 95 MAXIMUM BLOOD PRESSURE: 225/93 INDICATIONS: Hypertension. CLINICAL INFORMATION: Baseline rhythm is sinus mechanism, rate of 69, normal axis and intervals. Poor progression. Occasional PACs. Baseline blood pressure 211/91 mmHg. Patient received an injection of Lexiscan. Electrocardiograph monitoring revealed no evidence of diagnostic ischemic ST deviation. Cardiolite was injected per protocol. CONCLUSION: 1. Nondiagnostic electrocardiograph stress testing. 2. Nuclear images will be reported separately. MMODL / IJN: [id number] /
[2016-12-18] MEDS ORDERED: amLODIPine 5 MG TAB PO SCH (15:15)
[2016-12-18 18:24] VITALS: BP 154/78
--- NOTE | 2016-12-19 06:59 | DS ---
DISCHARGE SUMMARY DATE OF ADMISSION: 12/17/16 DATE OF DISCHARGE: 12/18/16. FINAL DIAGNOSES: 1. Hypertensive urgency, essential hypertension. 2. Obstructive sleep apnea and does not use a CPAP machine. 3. Restless legs syndrome. 4. Gastroesophageal reflux disease. 5. Hyperlipidemia. 6. Anxiety, depression, not otherwise specified. 7. Spinal stenosis. 8. Occluded right carotid artery. 9. Restless legs syndrome. HOSPITAL COURSE: This patient presented with some chest pressure and very high blood pressure that was 220/128 at the time of presentation. Norvasc was added. The patient's blood pressure did come down to 154/78 by the time of discharge. The patient did undergo a nuclear stress test. The patient was seen by Dr. Benitez. Okayed to be discharged. On exam, lungs are clear. CARDIOVASCULAR: 1st and 2nd sounds normal. The patient also had a 2-D echocardiogram that showed EF of 55-60%. DISCHARGE MEDICATIONS: 1. Xanax 0.25 p.o. daily p.r.n. 2. Aspirin 81 mg q.h.s. 3. Lipitor 10 mg q.h.s. 4. Plavix 75 mg p.o. daily. 5. Lexapro 40 mg p.o. daily. 6. Pepcid 40 mg p.o. daily. 7. Singulair 10 mg p.o. q.h.s. 8. Pamelor 20 mg q.h.s. 9. Requip 1 mg p.o. b.i.d. 10.Hydrochlorothiazide 25 mg p.o. daily. 11.Cozaar 100 mg p.o. daily. 12.Norvasc 5 mg p.o. q.h.s. Follow with Dr. Benitez on 12/31/16. Follow up with Dr. Wallace in 3 days. Discussion and discharge planning more than 35 minutes. MMODL / IJN: [id number] /
[2016-12-19] MEDS ORDERED: LOSARTAN-HCTZ 50-12.5 MG 1 EACH TAB PO SCH (09:00)
== END 2016-12-18 19:04 | disposition home or self-care (01) ==
LOC: EC 14:46 → 3OBS 16:43
PROVIDERS: ADMIT Hospitalist; ATTEND Hospitalist
DX: I16.0 Hypertensive urgency (principal); I10 Essential (primary) hypertension; G47.33 Obstructive sleep apnea (adult) (pediatric); Z99.89 Dependence on other enabling machines and devices; G25.81 Restless legs syndrome; K21.9 Gastro-esophageal reflux disease without esophagitis; E78.5 Hyperlipidemia, unspecified; I65.21 Occlusion and stenosis of right carotid artery; M48.00 Spinal stenosis, site unspecified; M19.91 Primary osteoarthritis, unspecified site; F32.9 Major depressive disorder, single episode, unspecified; F41.9 Anxiety disorder, unspecified; I73.9 Peripheral vascular disease, unspecified; J30.2 Other seasonal allergic rhinitis; Z79.02 Long term (current) use of antithrombotics/antiplatelets; Z79.82 Long term (current) use of aspirin; Z79.899 Other long term (current) drug therapy; Z88.2 Allergy status to sulfonamides; Z88.5 Allergy status to narcotic agent; Z88.6 Allergy status to analgesic agent; Z88.8 Allergy status to other drugs, medicaments and biological substances; Z91.018 Allergy to other foods; Z87.891 Personal history of nicotine dependence; Z86.73 Personal history of transient ischemic attack (TIA), and cerebral infarction without residual deficits
CPT/HCPCS: 36415; 94760; 93005; 93017; 93306; 80061; 80053; 82550 ×2; 82553 ×2; 83735; 84484 ×2; 85025; 85610; 85730; 71020; 78452; 99285; G0378 ×2; A9500; J2785

== ENCOUNTER 2016-12-19 12:30 | Observation (INO) | payer MEDICARE, BC ==
[2016-12-19] MEDS ORDERED: ONDANSETRON 4 MG/2 ML VIAL IVP STA (12:37)
[2016-12-19] MEDS ORDERED: SODIUM CHLORIDE 0.9% 1,000 ML IV STA ×2 (12:37)
[2016-12-19] MEDS ORDERED: LORazepam 2 MG/ML INJ IV STA (12:46)
--- NOTE | 2016-12-19 12:49 | ED ---
Syncope HPI - General Stated Complaint: Syncope Time Seen by Provider: 12/19/16 12:30 Source: patient, RN notes reviewed Mode of arrival: EMS - History of Present Illness Initial Comments: This is a 76-year-old female was brought in by EMS after having a fall off of a commode was using a bowel movement she felt very nauseated short of breath Very anxious she barely did pass out briefly but denies any head neck or back pain. She was moaning upon arrival states she was very nauseated this was in spite of 4 mg of Zofran administered by paramedics. She denies any head neck back pain no chest pain no overt abdominal pain but she does have nausea. She was seen in this emergency department apparently yesterday for hypertension. She denies any fevers chills sweats loss of function to her upper or lower extremities. He is on blood thinner. MD Complaint: felt faint, collapsed - Related Data Home Medications Medication Instructions Recorded Confirmed ALPRAZolam [Xanax] 0.25 mg PO DAILY PRN 12/17/16 12/19/16 Acetaminophen [Tylenol] 650 mg PO TID 12/17/16 12/19/16 Aspirin EC [Ecotrin Low Dose] 81 mg PO HS 12/17/16 12/19/16 Atorvastatin [Lipitor] 10 mg PO HS 12/17/16 12/19/16 Clopidogrel Bisulfate [Plavix] 75 mg PO DAILY 12/17/16 12/19/16 Escitalopram [Lexapro] 40 mg PO DAILY 12/17/16 12/19/16 Famotidine 40 mg PO DAILY 12/17/16 12/19/16 Montelukast [Singulair] 10 mg PO HS 12/17/16 12/19/16 Nortriptyline [Pamelor] 20 mg PO HS 12/17/16 12/19/16 rOPINIRole HCL [Requip] 1 mg PO BID 12/17/16 12/19/16 Previous Rx's Medication Instructions Recorded Hydrochlorothiazide [Hydrodiuril] 25 mg PO DAILY #30 tab 12/18/16 Losartan [Cozaar] 100 mg PO DAILY tab 12/18/16 amLODIPine [Norvasc] 5 mg PO HS #30 tab 12/18/16 Allergies Allergy/AdvReac Type Severity Reaction Status Date / Time acetaminophen [From [place]] Allergy Rash/Hives Verified 12/19/16 12:43 hydrocodone [From [place]] Allergy Rash/Hives Verified 12/19/16 12:43 Sulfa (Sulfonamide Allergy Rash/Hives Verified 12/19/16 12:43 Antibiotics) aripiprazole [From Abilify] AdvReac Hallucinati Verified 12/19/16 12:43 ons banana AdvReac Nausea & Verified 12/19/16 12:43 Vomiting & Diarrhea bupropion [From Wellbutrin] AdvReac Hallucinati Verified 12/19/16 12:43 ons codeine AdvReac Nausea & Verified 12/19/16 12:43 Vomiting morphine AdvReac Nausea & Verified 12/19/16 12:43 Vomiting propoxyphene [From Darvon] AdvReac Nausea & Verified 12/19/16 12:43 Vomiting Review of Systems ROS Statement: Those systems with pertinent positive or pertinent negative responses have been documented in the HPI. ROS Other: All systems not noted in ROS Statement are negative. Past Medical History Past Medical History: CVA/TIA, GERD/Reflux, Hyperlipidemia, Hypertension, Osteoarthritis (OA), Sleep Apnea/CPAP/BIPAP Additional Past Medical History / Comment(s): DDD, DJD, SPINAL STENOSIS, occluded carotid right artery, RLS, seasonal allergies.CPAP USED. HAD GERD IN PAST NONE SINCE HIATAL HERNIA SX.,CARDIOMYOPATHY History of Any Multi-Drug Resistant Organisms: None Reported Past Surgical History: Adenoidectomy, Appendectomy, Bladder Surgery, Cholecystectomy, Hysterectomy, Joint Replacement, Tonsillectomy Additional Past Surgical History / Comment(s): bilateral hip replacments, partial hysterectomy-still has ovaries, sinus sx,niko cataracts-lens implants, hiatal hernia sx Past Anesthesia/Blood Transfusion Reactions: No Reported Reaction Past Psychological History: Depression Smoking Status: Former smoker - Past Family History Mother Family Medical History: Cancer Additional Family Medical History / Comment(s): colon cancer Father Family Medical History: Congestive Heart Failure (CHF) General Exam - General Exam Comments Initial Comments: This is a well-developed well-nourished awake alert oriented 3 female she is very anxious and noted to be hyperventilating. General appearance: alert, anxious Head exam: Present: atraumatic, normocephalic, normal inspection Eye exam: Present: normal appearance, PERRL, EOMI. Absent: scleral icterus, conjunctival injection, periorbital swelling ENT exam: Present: mucous membranes dry Neck exam: Present: normal inspection. Absent: tenderness, meningismus, lymphadenopathy Respiratory exam: Present: normal lung sounds bilaterally. Absent: respiratory distress, wheezes, rales, rhonchi, stridor Cardiovascular Exam: Present: regular rate, normal rhythm, normal heart sounds. Absent: systolic murmur, diastolic murmur, rubs, gallop, clicks GI/Abdominal exam: Present: soft, normal bowel sounds. Absent: distended, tenderness, guarding, rebound, rigid Extremities exam: Present: normal inspection, full ROM, normal capillary refill. Absent: tenderness, pedal edema, joint swelling, calf tenderness Back exam: Present: normal inspection Neurological exam: Present: alert, oriented X3, CN II-XII intact Psychiatric exam: Present: normal affect, normal mood Skin exam: Present: warm, dry, intact, normal color. Absent: rash Course Vital Signs 12/19/16 12/19/16 12:35 15:07 Temperature 96.9 F L Pulse Rate 89 16 L Respiratory 18 18 Rate Blood Pressure 154/78 164/80 O2 Sat by Pulse 98 98 Oximetry - Reevaluation(s) Reevaluation #1: 12/19/16 15:09 Reevaluation patient reveals she is awake alert no improved. EKG Findings - EKG Results: EKG: interpreted by HIRO, sinus rhythm (Sinus rhythm rate of 88. Interval 134 QRS 70 daily since received 4:30/520 old inferior changes nonspecific inferior changes unifocal PVCs) Medical Decision Making - Medical Decision Making Patient remains awake alert oriented she has some recall of the events today she is not recall passing out a second time. - Lab Data Result diagrams: 12/19/16 13:20 12/19/16 13:20 Lab Results 12/19/16 12/19/16 12/19/16 Range/Units 13:20 13:20 13:20 WBC 8.7 (3.8-10.6) k/uL RBC 5.15 (3.80-5.40) m/uL Hgb 15.1 (11.4-16.0) gm/dL Hct 47.7 H (34.0-46.0) % MCV 92.7 (80.0-100.0) fL MCH 29.3 (25.0-35.0) pg MCHC 31.6 (31.0-37.0) g/dL RDW 13.4 (11.5-15.5) % Plt Count 192 (150-450) k/uL Neutrophils % 68 % Lymphocytes % 23 % Monocytes % 6 % Eosinophils % 0 % Basophils % 0 % Neutrophils # 6.0 (1.3-7.7) k/uL Lymphocytes # 2.0 (1.0-4.8) k/uL Monocytes # 0.6 (0-1.0) k/uL Eosinophils # 0.0 (0-0.7) k/uL Basophils # 0.0 (0-0.2) k/uL PT (9.0-12.0) sec INR (<1.2) APTT (22.0-30.0) sec Sodium 139 (137-145) mmol/L Potassium 3.5 (3.5-5.1) mmol/L Chloride 105 (98-107) mmol/L Carbon Dioxide 21 L (22-30) mmol/L Anion Gap 13 mmol/L BUN 18 H (7-17) mg/dL Creatinine 0.77 (0.52-1.04) mg/dL Est GFR (MDRD) Af Amer >60 (>60 ml/min/1.73 sqM) Est GFR (MDRD) Non-Af >60 (>60 ml/min/1.73 sqM) Glucose 147 H (74-99) mg/dL Calcium 9.6 (8.4-10.2) mg/dL Total Bilirubin 0.6 (0.2-1.3) mg/dL AST 28 (14-36) U/L ALT 55 H (9-52) U/L Alkaline Phosphatase 76 (38-126) U/L Total Creatine Kinase 60 (30-135) U/L CK-MB (CK-2) 2.2 (0.0-2.4) ng/mL CK-MB (CK-2) Rel Index 3.7 Troponin I <0.012 (0.000-0.034) ng/mL Total Protein 6.2 L (6.3-8.2) g/dL Albumin 3.6 (3.5-5.0) g/dL Amylase 66 (30-110) U/L Lipase 124 (23-300) U/L 12/19/16 Range/Units 13:20 WBC (3.8-10.6) k/uL RBC (3.80-5.40) m/uL Hgb (11.4-16.0) gm/dL Hct (34.0-46.0) % MCV (80.0-100.0) fL MCH (25.0-35.0) pg MCHC (31.0-37.0) g/dL RDW (11.5-15.5) % Plt Count (150-450) k/uL Neutrophils % % Lymphocytes % % Monocytes % % Eosinophils % % Basophils % % Neutrophils # (1.3-7.7) k/uL Lymphocytes # (1.0-4.8) k/uL Monocytes # (0-1.0) k/uL Eosinophils # (0-0.7) k/uL Basophils # (0-0.2) k/uL PT 10.7 (9.0-12.0) sec INR 1.1 (<1.2) APTT 18.1 L (22.0-30.0) sec Sodium (137-145) mmol/L Potassium (3.5-5.1) mmol/L Chloride (98-107) mmol/L Carbon Dioxide (22-30) mmol/L Anion Gap mmol/L BUN (7-17) mg/dL Creatinine (0.52-1.04) mg/dL Est GFR (MDRD) Af Amer (>60 ml/min/1.73 sqM) Est GFR (MDRD) Non-Af (>60 ml/min/1.73 sqM) Glucose (74-99) mg/dL Calcium (8.4-10.2) mg/dL Total Bilirubin (0.2-1.3) mg/dL AST (14-36) U/L ALT (9-52) U/L Alkaline Phosphatase (38-126) U/L Total Creatine Kinase (30-135) U/L CK-MB (CK-2) (0.0-2.4) ng/mL CK-MB (CK-2) Rel Index Troponin I (0.000-0.034) ng/mL Total Protein (6.3-8.2) g/dL Albumin (3.5-5.0) g/dL Amylase (30-110) U/L Lipase (23-300) U/L - Radiology Data Radiology results: report reviewed (I did review the imaging and reports no acute findings.), image reviewed Critical Care Time Critical Care Time: Yes Critical Care Time: Critical care time 32 minutes which includes monitoring the EMS run and discussed with paramedics the findings upon their initial evaluation. History physical labs x-rays. Reevaluation patient several occasions review the imaging as well as the labs discussed with the patient family members during the findings. Discussion with the admitting physician service. Shortness and documentation of the above Disposition Clinical Impression: Syncope and collapse, Frequent PVCs Disposition: ADMITTED IP TO THIS [facility] Condition: Stable Referrals: Lan Wallace MD [Primary Care Provider] - 1-2 days
[2016-12-19 13:56] LABS: ALT 55 U/L (9-52); AST 28 U/L (14-36); Alkaline Phosphatase 76 U/L (38-126); Amylase 66 U/L (30-110); Anion Gap 13 mmol/L; Basophils % (A) 0 %; Blood Urea Nitrogen 18 mg/dL (7-17); CH 29.1; CHCM 31.5; Calcium 9.6 mg/dL (8.4-10.2); Carbon Dioxide 21 mmol/L (22-30); Chloride 105 mmol/L (98-107); Eosinophils % (A) 0 %; Glucose 147 mg/dL (74-99); HCT 47.7 % (34.0-46.0); HDW 2.43; HGB 15.1 gm/dL (11.4-16.0); Luc # (Auto) 0.17; Luc % (Auto) 2; Lymphocytes % (A) 23 %; MCH 29.3 pg (25.0-35.0); MCHC 31.6 g/dL (31.0-37.0); MCV 92.7 fL (80.0-100.0); Mean Platelet Volume 6.7; Monocytes # (A) 0.6 k/uL (0-1.0); Monocytes % (A) 6 %; Neutrophils % (A) 68 %; Non-African American GFR(MDRD) >60 (>60 ml/min/1.73 sqM); Potassium 3.5 mmol/L (3.5-5.1); RBC 5.15 m/uL (3.80-5.40); RDW 13.4 % (11.5-15.5); Sodium 139 mmol/L (137-145); Total Bilirubin 0.6 mg/dL (0.2-1.3); Total Protein 6.2 g/dL (6.3-8.2); WBC 8.7 k/uL (3.8-10.6); WBC (Perox) 8.95
[2016-12-19 14:00] LABS: INR 1.1 (<1.2); Prothrombin Time 10.7 sec (9.0-12.0)
[2016-12-19 14:08] LABS: Creatine Kinase 60 U/L (30-135)
--- NOTE | 2016-12-19 14:08 | XR ---
EXAMINATION TYPE: XR chest 2V DATE OF EXAM: 12/19/2016 COMPARISON: Chest x-ray December 17, 2016. HISTORY: History of hypertension TECHNIQUE: Frontal and lateral views of the chest are obtained. FINDINGS: There is chronic change without suspicious focal air space opacity, pleural effusion, or p neumothorax seen. The cardiac silhouette size is enlarged with atherosclerotic and ectatic thoracic aorta. The osseous structures are demineralized. Metallic anchors from rotator cuff surgery are see n in right humeral head. Cholecystectomy clips are noted. IMPRESSION: Cardiomegaly without acute pulmonary process.
--- NOTE | 2016-12-19 14:09 | XR ---
EXAMINATION TYPE: XR KUB DATE OF EXAM: 12/19/2016 2:03 PM CLINICAL HISTORY: Nausea and vomiting today. TECHNIQUE: Single upright KUB image of the abdomen is obtained. COMPARISON: None. FINDINGS: Scattered gas is seen in non-distended stomach and small bowel loops. Gas is seen in non-di stended colon. Fecal material is seen in nondistended rectum. Cholecystectomy clips are present. Left -sided pelvic phlebolith is seen. Metallic hardware from bilateral hip surgery is partially imaged. N o pneumoperitoneum is identified. There is spurring and facet arthropathy lower lumbar spine. IMPRESSION: Overall nonobstructive bowel gas pattern.
[2016-12-19 14:10] LABS: Partial Thromboplastin Time 18.1 sec (22.0-30.0)
[2016-12-19 14:21] LABS: Creatine Kinase MB 2.2 ng/mL (0.0-2.4); Troponin I <0.012 ng/mL (0.000-0.034)
--- NOTE | 2016-12-19 14:44 | CT ---
EXAMINATION TYPE: CT brain cspine wo con DATE OF EXAM: 12/19/2016 COMPARISON: CT brain October 06, 2015. MRI brain December 10, 2016. HISTORY: Headache and neck pain per order. CT DLP: 1407.4 mGycm. Automated Exposure Control for Dose Reduction was Utilized. TECHNIQUE: CT scan of the head and cervical spine are performed without contrast. FINDINGS: There is no acute intracranial hemorrhage or midline shift identified. There is stable mi ld ventricular and sulcal prominence. Areas of low-attenuation periventricular white matter redemonst rated. Area of old infarct high right frontal region is redemonstrated. Scleral calcification both gl obes is seen. Mucosal thickening bilateral ethmoid and sphenoid sinuses is present. Cervical spine is visualized in its entirety from C1 through upper thoracic levels and demonstrates s traightened alignment without evidence of acute fracture or dislocation. Prevertebral soft tissue ap pears within normal limits. The C1-C2 articulation is within normal limits on the coronal images. Osseous structures are demineralized. Vertebral body heights are maintained. There is moderate disc s pace narrowing and spurring C4-C5 level. There is moderate to severe spurring and disc space narrowin g C5-C6 and C6-C7 levels. Posterior spur disc complexes are effacing anterior thecal sac at these lev els on sagittal images. Review of axial images shows multilevel bilateral uncovertebral facet degener ative changes contributing to multilevel neural foraminal narrowing. There is moderate emphysematous change in the visualized upper lungs. IMPRESSION: 1. There is no acute fracture or dislocation evident in the cervical spine. Demineralization and mult ilevel degenerative changes are present. 2. No acute intracranial hemorrhage or midline shift is seen. There is background mild diffuse cerebr al atrophy and mild to moderate chronic small vessel ischemic change with high right posterior fronta l lobe infarct all redemonstrated. No significant change from prior studies.
[2016-12-19] MEDS ORDERED: ONDANSETRON 4 MG/2 ML VIAL IVP PRN (15:11)
[2016-12-19] MEDS ORDERED: NALOXONE 0.4 MG/ML 1 ML VIAL IV PRN (15:11)
[2016-12-19] MEDS ORDERED: ALPRAZolam 0.25 MG TAB PO PRN (15:14)
[2016-12-19] MEDS ORDERED: SODIUM CHLORIDE 0.9% 1,000 ML IV SCH (15:15)
[2016-12-19] MEDS: ACETAMINOPHEN TAB 325 MG TAB PO SCH ×2 (17:07→22:02)
[2016-12-19 17:10] LABS: Appearance,Urine Clear (Clear); Bilirubin,Urine Negative (Negative); Glucose,Urine (UA) Negative (Negative); Ketones,Urine Negative (Negative); Leukocyte Esterase,Urine Negative (Negative); Nitrite,Urine Negative (Negative); PH, Urine 6.5 (5.0-8.0); Protein,Urine Negative (Negative); Specific Gravity,Urine 1.008 (1.001-1.035); UA Billing (MACRO vs. MICRO) CHEM; Urobilinogen,Urine <2.0 mg/dL (<2.0)
[2016-12-19] MEDS ORDERED: amLODIPine 5 MG TAB PO SCH (21:00)
--- NOTE | 2016-12-19 21:01 | P.PN ---
Progress Note - Text Progress Note Date: 12/19/16 HISTORY OF PRESENT ILLNESS: 76-year-old female patient of Dr. Lan RICH with chronic stable medical conditions include GERD, hyperlipidemia, restless leg syndrome, seasonal ALLERGIES obstructive sleep apnea, depression, was brought in by EMS after having a fall off the commode while she was having a bowel movement. Patient leaned forward to wipe herself lost her balance and fell off the commode and hit her head on the wall and this is lasting she remembers. The next thing she remembers is EMS helping her up off the floor she was unable to get up off the floor independently. She was panicky after that. Of note patient missed breakfast and then did not eat lunch. Admitted for syncope. REVIEW OF SYSTEMS GEN.: [ Tired] EYES: [None] HEENT: [Grinds her teeth] NECK: [Chronic neck and shoulder pain] RESPIRATORY: [Some shortness of breath] CARDIOVASCULAR: [Chest pain ] GASTROINTESTINAL: [GERD] GENITOURINARY: [Some urinary incontinence and some stool incontinence] MUSCULOSKELETAL: [Back pain] LYMPHATICS: [None] HEMATOLOGICAL: [None] PSYCHIATRY: [Depression and anxiety] NEUROLOGICAL: [History of headaches, restless leg syndrome] PAST MEDICAL HISTORY Past medical history: Chest pain, angina, CVA, TIA, GERD, hyperlipidemia, hypertension, osteoarthritis, sleep apnea, does not use a C Pap machine Past surgical history: Adenoidectomy, appendectomy, bladder surgery, cholecystectomy, hysterectomy, joint replacement, tonsillectomy, bilateral hip replacements, partial hysterectomy, bilateral cataracts, lens implants, Past psychological history: Bipolar disorder SOCIAL HISTORY: Additional psychological/social history: Smoking history: Former smoker smoked one pack per day for 30 years Alcohol use history: Denies Drug use history: Denies Illicit drug use: Denies Marital status: Living situation: Lives with Employment: Retired FAMILY HISTORY: Mother: , colon cancer Father: , congestive heart failure One brother: Living, lung disease 3 sisters: All 3 sisters living, one sister has breast cancer HOME MEDICATION: Acetaminophen 650 mg by mouth 3 times a day Clopidogrel 75 mg by mouth daily Aspirin enteric-coated 81 mg by mouth at bedtime Losartan 100 mg by mouth daily Ropinirole 1 mg by mouth twice a day Nortriptyline 20 mg by mouth at bedtime Montelukast 10 mg by mouth at bedtime Famotidine 40 mg by mouth daily Lexapro 40 mg by mouth daily Atorvastatin 10 mg by mouth at bedtime Alprazolam 0.25 mg by mouth daily when necessary ALLERGIES: HYDROCODONE, SULFA, ARIPIPRAZOLE, BANANA, BUPROPION, CODEINE, MORPHINE, PROPOXYPHENE VITAL SIGNS: [Temperature 97.5 pulse 83, respiratory rate 18, blood pressure 139 /77, oxygen saturation 95% on room air. GENERAL: [Average built, sitting up, comfortable]. EYES: [Pupils equal. Conjunctiva michela]l. HEENT: [External appearance of nose and ears normal, oral cavity grossly normal] . NECK: [JVD not raised; masses not palpable]. HEART: [First and second heart sounds are normal; no edema]. LUNGS:[ Respiratory rate normal; diminished bases to auscultation]. ABDOMEN: [Soft, nontender, liver spleen not palpable, no masses palpable]. LYMPHATICS: [No lymph nodes palpable in the axilla and neck]. PSYCH: [Alert and oriented x3; mood and affect michela]l. NEUROLOGICAL: [Cranial nerves grossly intact; no facial asymmetry, power and sensation grossly intact]. ASSESSMENT: -Possible syncope in the differential is possible vasovagal response or due to low blood sugar as a result of skipping meals -Essential hypertension. -Obstructive sleep apnea and does not use a CPAP machine. -Restless leg syndrome. -Gastroesophageal reflux disease. -Hyperlipidemia. -Anxiety depression not otherwise specified. -Spinal stenosis. -Occluded right carotid artery. -Restless leg syndrome. -Bipolar disorder PLAN: Home medications reordered, cardiology consulted, fall precautions initiated. Plan Of care discussed with patient at bedside will follow closely. DIRECTOR BEHAVIORAL HEALTH STATEMENT: Patient Was Seen and Examined by Nurse Practitioner Paula Wagoner in All Elements of the Case Discussed with Attending Dr. Jauregui.
[2016-12-19] MEDS: MONTELUKAST 10 MG TAB PO SCH (22:01)
[2016-12-19] MEDS: ASPIRIN 81 MG PO SCH (22:01)
[2016-12-19] MEDS: ATORVASTATIN 10 MG TAB PO SCH (22:02)
[2016-12-19] MEDS: NORTRIPTYLINE 10 MG CAP PO SCH (22:02)
[2016-12-20 06:20] LABS: Basophils % (A) 0 %; CH 28.1; CHCM 29.1; Eosinophils # (A) 0.1 k/uL (0-0.7); Eosinophils % (A) 1 %; HCT 47.8 % (34.0-46.0); HDW 2.32; Hypochromasia Marked; Luc % (Auto) 3; Lymphocytes # (A) 2.4 k/uL (1.0-4.8); Lymphocytes % (A) 35 %; MCH 28.3 pg (25.0-35.0); MCHC 29.2 g/dL (31.0-37.0); MCV 96.9 fL (80.0-100.0); Mean Platelet Volume 7.3; Monocytes # (A) 0.7 k/uL (0-1.0); Monocytes % (A) 11 %; Neutrophils # (A) 3.5 k/uL (1.3-7.7); Neutrophils % (A) 50 %; RBC 4.94 m/uL (3.80-5.40); RDW 15.1 % (11.5-15.5); WBC 6.9 k/uL (3.8-10.6); WBC (Perox) 6.66
[2016-12-20 06:35] LABS: Anion Gap 4 mmol/L; Blood Urea Nitrogen 14 mg/dL (7-17); Calcium 9.7 mg/dL (8.4-10.2); Carbon Dioxide 27 mmol/L (22-30); Chloride 107 mmol/L (98-107); Glucose 94 mg/dL (74-99); Non-African American GFR(MDRD) >60 (>60 ml/min/1.73 sqM); Potassium 4.4 mmol/L (3.5-5.1); Sodium 138 mmol/L (137-145)
[2016-12-20] MEDS: ENOXAPARIN 40 MG/0.4 ML SYRINGE SQ SCH (07:40)
[2016-12-20] MEDS: ESCITALOPRAM 20 MG TAB PO SCH (07:41)
[2016-12-20] MEDS: CLOPIDOGREL 75 MG TAB PO SCH (07:41)
[2016-12-20] MEDS: FAMOTIDINE 20 MG TAB PO SCH (07:42)
[2016-12-20] MEDS: PSYLLIUM HUSK 100% 6 GM PACKET PO SCH (07:45)
[2016-12-20] MEDS: ACETAMINOPHEN TAB 325 MG TAB PO SCH ×3 (07:45→21:14)
--- NOTE | 2016-12-20 08:09 | HP ---
HISTORY AND PHYSICAL DATE OF ADMISSION: 12/19/2016. ATTENDING NOTE: Patient seen and examined by me. Discussed with my nurse practitioner, Ms. Wagoner. This is a patient who just went home yesterday. Patient had come in with hypertensive urgency and some chest pain. Did undergo a nuclear stress test that was negative. Seen by Dr. Benitez. Patient had a very high blood pressure for which Norvasc was added. Patient was at home sitting on the toilet seat and then leaned forward to wipe herself. Patient lost balance, hit head against the wall and went down. Next thing she remembers was the EMS coming there. Patient became a bit panicky after that. It may be reminded that the patient normally has a small breakfast which she had skipped this morning and did not even have that. EXAMINATION: On examination, temperature 96.9, pulse 89, respirations 18, blood pressure 172/78, pulse ox 98% on 2-L. GENERAL APPEARANCE: Sitting up, comfortable. EYES: Pupils equal. Conjunctivae normal. JVD not raised. Mass not palpable. RESPIRATORY: Effort, lungs are clear. CARDIOVASCULAR: First and second sounds are normal. INVESTIGATIONS: White count 8.7, potassium 3.5. ASSESSMENT: 1. Episode of loss of consciousness after hitting her head against the wall likely concussion for which patient was short lived and recovered. 2. Essential hypertension. 3. Obstructive sleep apnea, does not use CPAP machine. 4. Restless leg syndrome. 5. Gastroesophageal reflux disease. 6. Hyperlipidemia. 7. Anxiety and depression, not otherwise specified. 8. Chronic spinal stenosis. 9. Occluded right carotid artery. PLAN: Home medications are resumed. will keep a close eye on the blood pressure. Telemetry is being monitored. Patient's EKG shows normal sinus rhythm. Cardiology was consulted. Care was discussed with the patient. MMODL / IJN: [id number] /
[2016-12-20] MEDS ORDERED: HYDROCHLOROTHIAZIDE 25 MG TAB PO SCH (09:00)
[2016-12-20] MEDS: LOSARTAN 50 MG TAB PO SCH (09:58)
[2016-12-20 11:46] VITALS: RESP 18
--- NOTE | 2016-12-20 12:15 | P.CRDCN ---
History of Present Illness Consult date: 12/20/16 Chief complaint: Syncopal episode History of present illness: This is a 76-year-old female patient who sees Dr. Benitez in the office as an outpatient with a past medical history significant for hypertension , dyslipidemia, and known occluded right internal carotid artery, was brought to the hospital with syncope. The patient just was admitted to the hospital a few days ago with hypertension urgency where at that point her blood pressure medications were adjusted and she was discharged home in stable medical condition. When she presented last time she was taking losartan for hypertension and she was discharged with losartan as well as Norvasc and hydrochlorothiazide. She was discharged in stable medical condition. She was at home where she was sitting on the toilet and trying to stand up when she lost her consciousness. She does not recall having any chest pain or discomfort but she felt dizzy before she lost her consciousness. Ambulance was called and brought the patient to the emergency department. The EKG showed sinus rhythm with frequent PVCs. The cardiac enzymes were checked and came in to be unremarkable. An orthostatic blood pressure was checked and came to be positive and consistent with orthostatic hypotension. Past Medical History Past Medical History: Chest Pain / Angina, CVA/TIA, GERD/Reflux, Hyperlipidemia , Hypertension, Osteoarthritis (OA), Sleep Apnea/CPAP/BIPAP Additional Past Medical History / Comment(s): DDD, DJD, SPINAL STENOSIS, occluded carotid right artery, RLS, seasonal allergies.CPAP USED. HAD GERD IN PAST NONE SINCE HIATAL HERNIA SX.,CARDIOMYOPATHY History of Any Multi-Drug Resistant Organisms: None Reported Past Surgical History: Adenoidectomy, Appendectomy, Bladder Surgery, Cholecystectomy, Hysterectomy, Joint Replacement, Tonsillectomy Additional Past Surgical History / Comment(s): bilateral hip replacments, partial hysterectomy-still has ovaries, sinus sx,niko cataracts-lens implants, hiatal hernia sx Past Anesthesia/Blood Transfusion Reactions: No Reported Reaction Smoking Status: Former smoker - Past Family History Mother Family Medical History: Cancer Additional Family Medical History / Comment(s): colon cancer Father Family Medical History: Congestive Heart Failure (CHF) Medications and Allergies Home Medications Medication Instructions Recorded Confirmed Type ALPRAZolam [Xanax] 0.25 mg PO DAILY PRN 12/17/16 12/19/16 History Acetaminophen [Tylenol] 650 mg PO TID 12/17/16 12/19/16 History Aspirin EC [Ecotrin Low Dose] 81 mg PO HS 12/17/16 12/19/16 History Atorvastatin [Lipitor] 10 mg PO HS 12/17/16 12/19/16 History Clopidogrel Bisulfate [Plavix] 75 mg PO DAILY 12/17/16 12/19/16 History Escitalopram [Lexapro] 40 mg PO DAILY 12/17/16 12/19/16 History Famotidine 40 mg PO DAILY 12/17/16 12/19/16 History Montelukast [Singulair] 10 mg PO HS 12/17/16 12/19/16 History Nortriptyline [Pamelor] 20 mg PO HS 12/17/16 12/19/16 History rOPINIRole HCL [Requip] 1 mg PO BID 12/17/16 12/19/16 History Hydrochlorothiazide [Hydrodiuril] 25 mg PO DAILY #30 tab 12/18/16 12/19/16 Rx Losartan [Cozaar] 100 mg PO DAILY tab 12/18/16 12/19/16 Rx amLODIPine [Norvasc] 5 mg PO HS #30 tab 12/18/16 12/19/16 Rx Allergies Allergy/AdvReac Type Severity Reaction Status Date / Time acetaminophen [From [place]] Allergy Rash/Hives Verified 12/19/16 12:43 hydrocodone [From [place]] Allergy Rash/Hives Verified 12/19/16 12:43 Sulfa (Sulfonamide Allergy Rash/Hives Verified 12/19/16 12:43 Antibiotics) aripiprazole [From Abilify] AdvReac Hallucinati Verified 12/19/16 12:43 ons banana AdvReac Nausea & Verified 12/19/16 12:43 Vomiting & Diarrhea bupropion [From Wellbutrin] AdvReac Hallucinati Verified 12/19/16 12:43 ons codeine AdvReac Nausea & Verified 12/19/16 12:43 Vomiting morphine AdvReac Nausea & Verified 12/19/16 12:43 Vomiting propoxyphene [From Darvon] AdvReac Nausea & Verified 12/19/16 12:43 Vomiting Physical Exam Vitals: Vital Signs Temp Pulse Pulse Resp BP BP BP 12/20/16 11:41 97.6 F 92 18 12/20/16 07:52 98 16 12/20/16 07:49 97.1 F L 98 16 118/75 84/62 12/20/16 04:00 97.1 F L 73 18 114/62 105/61 12/20/16 00:00 97.2 F L 82 18 12/19/16 20:30 97.5 F L 83 18 12/19/16 17:14 85 16 12/19/16 17:00 97.0 F L 90 18 12/19/16 16:23 98.4 F 90 16 162/92 12/19/16 15:07 16 L 18 164/80 12/19/16 12:35 96.9 F L 89 18 154/78 BP BP Pulse Ox 12/20/16 11:41 125/76 98 12/20/16 07:52 12/20/16 07:49 135/96 98 12/20/16 04:00 129/80 98 12/20/16 00:00 124/87 96 12/19/16 20:30 139/77 95 12/19/16 17:14 12/19/16 17:00 134/73 97 12/19/16 16:23 99 12/19/16 15:07 98 12/19/16 12:35 98 Intake and Output 12/19/16 12/20/16 12/20/16 22:59 06:59 14:59 Intake Total 500 240 Output Total 800 350 Balance -300 -110 Intake: Intake, IV Titration 200 Amount Sodium Chloride 0.9% 1, 200 000 ml @ 100 mls/hr IV . Q10H STA Rx#:[id number] Oral 300 240 Output: Urine 800 350 Other: Voiding Method Toilet Toilet Toilet # Voids 1 1 1 Weight 62.2 kg - Constitutional General appearance: no acute distress - Respiratory Respiratory: bilateral: CTA - Cardiovascular Rhythm: regular Heart sounds: normal: S1, S2 Abnormal Heart Sounds: systolic murmur Results 12/20/16 05:32 12/20/16 05:32 Cardiac Enzymes 12/19/16 12/19/16 12/19/16 Range/Units 13:20 13:20 19:13 AST 28 (14-36) U/L CK-MB (CK-2) 2.2 (0.0-2.4) ng/mL Troponin I <0.012 <0.012 (0.000-0.034) ng/mL 12/20/16 Range/Units 01:14 AST (14-36) U/L CK-MB (CK-2) (0.0-2.4) ng/mL Troponin I <0.012 (0.000-0.034) ng/mL Coagulation 12/19/16 Range/Units 13:20 PT 10.7 (9.0-12.0) sec APTT 18.1 L (22.0-30.0) sec CBC 12/19/16 12/20/16 Range/Units 13:20 05:32 WBC 8.7 6.9 (3.8-10.6) k/uL RBC 5.15 4.94 (3.80-5.40) m/uL Hgb 15.1 14.0 (11.4-16.0) gm/dL Hct 47.7 H 47.8 H (34.0-46.0) % Plt Count 192 188 (150-450) k/uL Comprehensive Metabolic Panel 12/19/16 12/20/16 Range/Units 13:20 05:32 Sodium 139 138 (137-145) mmol/L Potassium 3.5 4.4 (3.5-5.1) mmol/L Chloride 105 107 (98-107) mmol/L Carbon Dioxide 21 L 27 (22-30) mmol/L BUN 18 H 14 (7-17) mg/dL Creatinine 0.77 0.76 (0.52-1.04) mg/dL Glucose 147 H 94 (74-99) mg/dL Calcium 9.6 9.7 (8.4-10.2) mg/dL AST 28 (14-36) U/L ALT 55 H (9-52) U/L Alkaline Phosphatase 76 (38-126) U/L Total Protein 6.2 L (6.3-8.2) g/dL Albumin 3.6 (3.5-5.0) g/dL Current Medications Generic Name Dose Route Start Last Admin Trade Name Freq PRN Reason Stop Dose Admin Acetaminophen 650 mg 12/19/16 16:00 12/20/16 07:45 Tylenol Tab PO 650 mg TID SENG Administration Alprazolam 0.25 mg 12/19/16 15:14 Xanax PO DAILY PRN Anxiety Aspirin 81 mg 12/19/16 21:00 12/19/16 22:01 Aspirin PO 81 mg HS SENG Administration Atorvastatin Calcium 10 mg 12/19/16 21:00 12/19/16 22:02 Lipitor PO 10 mg HS SENG Administration Clopidogrel Bisulfate 75 mg 12/20/16 09:00 12/20/16 07:41 Plavix PO 75 mg DAILY SENG Administration Enoxaparin Sodium 40 mg 12/20/16 09:00 12/20/16 07:40 Lovenox SQ 40 mg DAILY SENG Administration Escitalopram Oxalate 40 mg 12/20/16 09:00 12/20/16 07:41 Lexapro PO 40 mg DAILY SENG Administration Famotidine 40 mg 12/20/16 09:00 12/20/16 07:42 Pepcid PO 40 mg DAILY SENG Administration Losartan Potassium 100 mg 12/20/16 09:00 12/20/16 09:58 Cozaar PO Not Given DAILY SENG Montelukast Sodium 10 mg 12/19/16 21:00 12/19/16 22:01 Singulair PO 10 mg HS SENG Administration Naloxone HCl 0.2 mg 12/19/16 15:11 Narcan IV Q2M PRN Opioid Reversal Nortriptyline HCl 20 mg 12/19/16 21:00 12/19/16 22:02 Pamelor PO 20 mg HS SENG Administration Ondansetron HCl 4 mg 12/19/16 15:11 Zofran IVP Q8HR PRN Nausea And Vomiting Psyllium Hydrophilic Mucilloid 6 gm 12/20/16 09:00 12/20/16 07:45 Metamucil PO 6 gm DAILY SENG Administration Ropinirole HCl 1 mg 12/19/16 21:00 12/20/16 07:41 Requip PO 1 mg BID SENG Administration Intake and Output 12/19/16 12/20/16 12/20/16 22:59 06:59 14:59 Intake Total 500 240 Output Total 800 350 Balance -300 -110 Intake: Intake, IV Titration 200 Amount Sodium Chloride 0.9% 1, 200 000 ml @ 100 mls/hr IV . Q10H STA Rx#:[id number] Oral 300 240 Output: Urine 800 350 Other: Voiding Method Toilet Toilet Toilet # Voids 1 1 1 Weight 62.2 kg 12/20/16 05:32 12/20/16 05:32 Assessment and Plan Assessment: This is a pleasant 76-year-old female patient with hypertension was brought to the hospital with syncope. She was found to have orthostatic hypotension. At this point we will stop the Norvasc, decrease the dose of hydrochlorothiazide , continue losartan, and continue following up with the patient for additional 24 hours. The patient will be discharged home tomorrow.
[2016-12-20] MEDS: HYDROCHLOROTHIAZIDE 12.5 MG CAP PO SCH (14:20)
--- NOTE | 2016-12-20 16:01 | P.HPIM ---
History of Present Illness H&P Date: 12/19/16 Chief Complaint: Dizziness lightheadedness HISTORY OF PRESENT ILLNESS: 76-year-old female patient of Dr. Lan RICH with chronic stable medical conditions include GERD, hyperlipidemia, restless leg syndrome, seasonal ALLERGIES obstructive sleep apnea, depression, was brought in by EMS after having a fall off the commode while she was having a bowel movement. Patient leaned forward to wipe herself lost her balance and fell off the commode and hit her head on the wall and this is lasting she remembers. The next thing she remembers is EMS helping her up off the floor she was unable to get up off the floor independently. She was panicky after that. Of note patient missed breakfast and then did not eat lunch. Admitted for syncope. REVIEW OF SYSTEMS GEN.: [ Tired] EYES: [None] HEENT: [Grinds her teeth] NECK: [Chronic neck and shoulder pain] RESPIRATORY: [Some shortness of breath] CARDIOVASCULAR: [Chest pain ] GASTROINTESTINAL: [GERD] GENITOURINARY: [Some urinary incontinence and some stool incontinence] MUSCULOSKELETAL: [Back pain] LYMPHATICS: [None] HEMATOLOGICAL: [None] PSYCHIATRY: [Depression and anxiety] NEUROLOGICAL: [History of headaches, restless leg syndrome] PAST MEDICAL HISTORY Past medical history: Chest pain, angina, CVA, TIA, GERD, hyperlipidemia, hypertension, osteoarthritis, sleep apnea, does not use a C Pap machine Past surgical history: Adenoidectomy, appendectomy, bladder surgery, cholecystectomy, hysterectomy, joint replacement, tonsillectomy, bilateral hip replacements, partial hysterectomy, bilateral cataracts, lens implants, Past psychological history: Bipolar disorder SOCIAL HISTORY: Additional psychological/social history: Smoking history: Former smoker smoked one pack per day for 30 years Alcohol use history: Denies Drug use history: Denies Illicit drug use: Denies Marital status: Living situation: Lives with Employment: Retired FAMILY HISTORY: Mother: , colon cancer Father: , congestive heart failure One brother: Living, lung disease 3 sisters: All 3 sisters living, one sister has breast cancer HOME MEDICATION: Acetaminophen 650 mg by mouth 3 times a day Clopidogrel 75 mg by mouth daily Aspirin enteric-coated 81 mg by mouth at bedtime Losartan 100 mg by mouth daily Ropinirole 1 mg by mouth twice a day Nortriptyline 20 mg by mouth at bedtime Montelukast 10 mg by mouth at bedtime Famotidine 40 mg by mouth daily Lexapro 40 mg by mouth daily Atorvastatin 10 mg by mouth at bedtime Alprazolam 0.25 mg by mouth daily when necessary ALLERGIES: HYDROCODONE, SULFA, ARIPIPRAZOLE, BANANA, BUPROPION, CODEINE, MORPHINE, PROPOXYPHENE VITAL SIGNS: [Temperature 97.5 pulse 83, respiratory rate 18, blood pressure 139 /77, oxygen saturation 95% on room air. GENERAL: [Average built, sitting up, comfortable]. EYES: [Pupils equal. Conjunctiva michela]l. HEENT: [External appearance of nose and ears normal, oral cavity grossly normal] . NECK: [JVD not raised; masses not palpable]. HEART: [First and second heart sounds are normal; no edema]. LUNGS:[ Respiratory rate normal; diminished bases to auscultation]. ABDOMEN: [Soft, nontender, liver spleen not palpable, no masses palpable]. LYMPHATICS: [No lymph nodes palpable in the axilla and neck]. PSYCH: [Alert and oriented x3; mood and affect michela]l. NEUROLOGICAL: [Cranial nerves grossly intact; no facial asymmetry, power and sensation grossly intact]. ASSESSMENT: -Possible syncope in the differential is possible vasovagal response or due to low blood sugar as a result of skipping meals -Essential hypertension. -Obstructive sleep apnea and does not use a CPAP machine. -Restless leg syndrome. -Gastroesophageal reflux disease. -Hyperlipidemia. -Anxiety depression not otherwise specified. -Spinal stenosis. -Occluded right carotid artery. -Restless leg syndrome. -Bipolar disorder PLAN: Home medications reordered, cardiology consulted, fall precautions initiated. Plan Of care discussed with patient at bedside will follow closely. VITREO RETINAL SURGEON STATEMENT: Patient Was Seen and Examined by Nurse Practitioner Paula Wagoner in All Elements of the Case Discussed with Attending Dr. Jauregui. Past Medical History Past Medical History: Chest Pain / Angina, CVA/TIA, GERD/Reflux, Hyperlipidemia , Hypertension, Osteoarthritis (OA), Sleep Apnea/CPAP/BIPAP Additional Past Medical History / Comment(s): DDD, DJD, SPINAL STENOSIS, occluded carotid right artery, RLS, seasonal allergies.CPAP USED. HAD GERD IN PAST NONE SINCE HIATAL HERNIA SX.,CARDIOMYOPATHY History of Any Multi-Drug Resistant Organisms: None Reported Past Surgical History: Adenoidectomy, Appendectomy, Bladder Surgery, Cholecystectomy, Hysterectomy, Joint Replacement, Tonsillectomy Additional Past Surgical History / Comment(s): bilateral hip replacments, partial hysterectomy-still has ovaries, sinus sx,niko cataracts-lens implants, hiatal hernia sx Past Anesthesia/Blood Transfusion Reactions: No Reported Reaction Smoking Status: Former smoker - Past Family History Mother Family Medical History: Cancer Additional Family Medical History / Comment(s): colon cancer Father Family Medical History: Congestive Heart Failure (CHF) Medications and Allergies Home Medications Medication Instructions Recorded Confirmed Type ALPRAZolam [Xanax] 0.25 mg PO DAILY PRN 12/17/16 12/19/16 History Acetaminophen [Tylenol] 650 mg PO TID 12/17/16 12/19/16 History Aspirin EC [Ecotrin Low Dose] 81 mg PO HS 12/17/16 12/19/16 History Atorvastatin [Lipitor] 10 mg PO HS 12/17/16 12/19/16 History Clopidogrel Bisulfate [Plavix] 75 mg PO DAILY 12/17/16 12/19/16 History Escitalopram [Lexapro] 40 mg PO DAILY 12/17/16 12/19/16 History Famotidine 40 mg PO DAILY 12/17/16 12/19/16 History Montelukast [Singulair] 10 mg PO HS 12/17/16 12/19/16 History Nortriptyline [Pamelor] 20 mg PO HS 12/17/16 12/19/16 History rOPINIRole HCL [Requip] 1 mg PO BID 12/17/16 12/19/16 History Hydrochlorothiazide [Hydrodiuril] 25 mg PO DAILY #30 tab 12/18/16 12/19/16 Rx Losartan [Cozaar] 100 mg PO DAILY tab 12/18/16 12/19/16 Rx amLODIPine [Norvasc] 5 mg PO HS #30 tab 12/18/16 12/19/16 Rx Allergies Allergy/AdvReac Type Severity Reaction Status Date / Time acetaminophen [From [place]] Allergy Rash/Hives Verified 12/19/16 12:43 hydrocodone [From [place]] Allergy Rash/Hives Verified 12/19/16 12:43 Sulfa (Sulfonamide Allergy Rash/Hives Verified 12/19/16 12:43 Antibiotics) aripiprazole [From Abilify] AdvReac Hallucinati Verified 12/19/16 12:43 ons banana AdvReac Nausea & Verified 12/19/16 12:43 Vomiting & Diarrhea bupropion [From Wellbutrin] AdvReac Hallucinati Verified 12/19/16 12:43 ons codeine AdvReac Nausea & Verified 12/19/16 12:43 Vomiting morphine AdvReac Nausea & Verified 12/19/16 12:43 Vomiting propoxyphene [From Darvon] AdvReac Nausea & Verified 12/19/16 12:43 Vomiting Physical Exam Vitals: Vital Signs Temp Pulse Pulse Resp BP BP BP 12/20/16 15:29 97.1 F L 86 18 126/70 12/20/16 15:13 98 18 12/20/16 14:19 117/65 12/20/16 11:41 97.6 F 92 18 12/20/16 07:52 98 16 12/20/16 07:49 97.1 F L 98 16 118/75 84/62 12/20/16 04:00 97.1 F L 73 18 114/62 105/61 12/20/16 00:00 97.2 F L 82 18 12/19/16 20:30 97.5 F L 83 18 12/19/16 17:14 85 16 12/19/16 17:00 97.0 F L 90 18 12/19/16 16:23 98.4 F 90 16 162/92 BP BP Pulse Ox 12/20/16 15:29 98 12/20/16 15:13 12/20/16 14:19 12/20/16 11:41 125/76 98 12/20/16 07:52 12/20/16 07:49 135/96 98 12/20/16 04:00 129/80 98 12/20/16 00:00 124/87 96 12/19/16 20:30 139/77 95 12/19/16 17:14 12/19/16 17:00 134/73 97 12/19/16 16:23 99 Intake and Output 12/20/16 12/20/16 12/20/16 06:59 14:59 22:59 Intake Total 900 100 Output Total 350 350 Balance 550 -250 Intake: Oral 900 100 Output: Urine 350 350 Other: Voiding Method Toilet Toilet Toilet # Voids 1 1 1 Weight 62.2 kg Results CBC & Chem 7: 12/20/16 05:32 12/20/16 05:32 Labs: Abnormal Lab Results - Last 24 Hours (Table) 12/20/16 Range/Units 05:32 Hct 47.8 H (34.0-46.0) % MCHC 29.2 L (31.0-37.0) g/dL Thrombosis Risk Factor Assmnt - Choose All That Apply Any of the Below Risk Factors Present?: Yes Each Factor Represents 1 point: Swollen legs (current) Other Risk Factors: Yes Each Risk Factor Represents 3 Points: Age 75 years or older Other congenital or acquired thrombophilia - If yes, enter type in comment: No Thrombosis Risk Factor Assessment Total Risk Factor Score: 4 Thrombosis Risk Factor Assessment Level: Moderate Risk
--- NOTE | 2016-12-20 18:27 | PN ---
PROGRESS NOTE DATE OF SERVICE: 12/20/2016 ATTENDING NOTE: Patient was seen and examined by me. I discussed with my nurse practitioner, Ms. Wagoner. The patient presented with episodes of passing out, has now been found to be orthostatic. The patient has been started on Norvasc. Seen by Cardiology earlier today, who has stopped the Norvasc, see how the patient does. EXAMINATION: VITAL SIGNS: Noted, included to be orthostatic. LUNGS: Clear. CARDIOVASCULAR: First and second sounds normal. ASSESSMENT: Fall from orthostatic. Other medical conditions stable. Norvasc has been discontinued. Will check orthostatics every shift q.4 and follow with Cardiology. MMODL / IJN: [id number] /
[2016-12-20] MEDS: NORTRIPTYLINE 10 MG CAP PO SCH (20:07)
[2016-12-20] MEDS: ASPIRIN 81 MG PO SCH (20:08)
[2016-12-20] MEDS: ATORVASTATIN 10 MG TAB PO SCH (20:08)
[2016-12-20] MEDS: MONTELUKAST 10 MG TAB PO SCH (20:08)
[2016-12-21] MEDS: PSYLLIUM HUSK 100% 6 GM PACKET PO SCH (07:56)
[2016-12-21] MEDS: ESCITALOPRAM 20 MG TAB PO SCH (07:57)
[2016-12-21] MEDS: LOSARTAN 50 MG TAB PO SCH (07:57)
[2016-12-21] MEDS: HYDROCHLOROTHIAZIDE 12.5 MG CAP PO SCH (07:57)
[2016-12-21] MEDS: FAMOTIDINE 20 MG TAB PO SCH (07:57)
[2016-12-21] MEDS: ACETAMINOPHEN TAB 325 MG TAB PO SCH ×3 (07:57→21:51)
[2016-12-21] MEDS: CLOPIDOGREL 75 MG TAB PO SCH (07:58)
[2016-12-21] MEDS: ENOXAPARIN 40 MG/0.4 ML SYRINGE SQ SCH (07:58)
--- NOTE | 2016-12-21 12:26 | P.PN ---
Subjective Progress Note Date: 12/21/16 This is a 76-year-old female patient who sees Dr. Benitez in the office as an outpatient with a past medical history significant for hypertension , dyslipidemia, and known occluded right internal carotid artery, was brought to the hospital with syncope. The patient just was admitted to the hospital a few days ago with hypertension urgency where at that point her blood pressure medications were adjusted and she was discharged home in stable medical condition. When she presented last time she was taking losartan for hypertension and she was discharged with losartan as well as Norvasc and hydrochlorothiazide. She was discharged in stable medical condition. She was at home where she was sitting on the toilet and trying to stand up when she lost her consciousness. She does not recall having any chest pain or discomfort but she felt dizzy before she lost her consciousness. Ambulance was called and brought the patient to the emergency department. The EKG showed sinus rhythm with frequent PVCs. The cardiac enzymes were checked and came in to be unremarkable. An orthostatic blood pressure was checked and came to be positive and consistent with orthostatic hypotension. 12/21/2016 Pt seen and examined this morning, she did have some mild dizziness earlier this morning. Pressure 120/70 lying, 94/[address] Torin Lockwood did request that the nurse ambulate the patient in the hallway and recheck her orthostatics which came back to be 154/70 lying, 123/76 standing. She felt well and denies any dizziness or lightheadedness. For this reason she should be able to be discharged home from our perspective, we will discontinue her hydrochlorothiazide and have her follow-up with Dr. Benitez in the office post discharge. Objective - Vital Signs Vital signs: Vital Signs Temp 97.7 F 12/21/16 08:15 Pulse 78 12/21/16 11:34 Resp 18 12/21/16 11:34 BP 152/100 12/21/16 11:34 Pulse Ox 18 L 12/21/16 11:34 Intake & Output 12/20/16 12/21/16 12/21/16 18:59 06:59 18:59 Intake Total 1200 350 Output Total 700 Balance 500 350 Weight 62.6 kg Intake: Oral 1200 350 Output: Urine 700 Other: Voiding Method Toilet Toilet Toilet # Voids 1 1 - Exam PHYSICAL EXAMINATION: HEENT: Head is atraumatic, normocephalic. Pupils equal, round. Neck is supple. There is no elevated jugular venous pressure. HEART EXAMINATION: Heart S1, S2 systolic murmur is heard. CHEST EXAMINATION: Lungs are clear to auscultation and precussion. No chest wall tenderness is noted on palpation or with deep breathing. ABDOMEN: Soft, nontender. Bowel sounds are heard. No organomegaly noted. EXTREMITIES: 2+ peripheral pulses with no evidence of peripheral edema and no calf tenderness noted. NEUROLOGIC patient is awake, alert and oriented -3. . - Labs CBC & Chem 7: 12/20/16 05:32 12/20/16 05:32 Assessment and Plan Plan: Assessment and plan #1 syncope, positive orthostatic hypotension. #2 hypertension #3 hyperlipidemia #4 peripheral vascular disease Plan After the patient had been up ambulating in the hallway significantly this morning her lying down blood pressure was 154/70, standing 122/76. We will still discontinue her hydrochlorothiazide, she may be able to be discharged from cardiology's perspective. We will make her a follow-up appointment to see Dr. Benitez in the office post discharge. DNP note has been reviewed, I agree with a documented findings and plan of care. Patient was seen and examined.
--- NOTE | 2016-12-21 13:47 | P.PN ---
Progress Note - Text Progress Note Date: 12/27/16 DATE OF SERVICE: 12/20/2016 PRESENTING COMPLAINT: Dizziness lightheadedness HISTORY OF PRESENT ILLNESS: 76-year-old female who was admitted after falling off the commode while she was having a bowel movement. Lost her balance and fell off the commode hit her head hit the wall and passed out. INTERVAL HISTORY: 12/20/2016: Patient seen in follow-up today sitting up in bed appears comfortable, not in any distress. Orthostatic vitals taken and she was in fact found to have orthostatic blood pressure. No complaints of dizziness lightheadedness or weakness. Has been ambulating with assistance, tolerating her diet, moving her bowels. Awaiting cardiology to see her. REVIEW OF SYSTEMS: Done for constitutional ,cardiovascular, GI, pulmonary with relevant findings as above. CURRENT MEDICATIONS Xanax 0.25 mg by mouth daily, aspirin 81 mg by mouth at bedtime, Lipitor 10 mg by mouth at bedtime, Plavix 75 mg by mouth daily, Lovenox 40 mg subcu daily, Lexapro 40 mg by mouth daily, Pepcid 40 mg by mouth daily, hydrochlorothiazide 12.5 mg by mouth daily, Cozaar 100 mg by mouth daily, nortriptyline 20 g by mouth at bedtime, Requip 1 mg by mouth twice a day. PHYSICAL EXAM VITAL SIGNS: Temperature 97.1, pulse 98, respirations 16, blood pressure 118/75 sitting, 84/ 62 standing, 135/96 supine oxygen saturation 98% on room air. GENERAL: [ sitting up, comfortable]. EYES: [Pupils equal. Conjunctiva michela]l. HEENT: [External appearance of nose and ears normal, oral cavity grossly normal] . NECK: [JVD not raised; masses not palpable]. HEART: [First and second heart sounds are normal; no edema]. LUNGS:[ Respiratory rate normal; diminished bases to auscultation]. ABDOMEN: [Soft, nontender, liver spleen not palpable, no masses palpable]. PSYCH: [Alert and oriented x3; mood and affect michela]l. INVESTIGATIONS: CBC unremarkable BMP unremarkable ASSESSMENT: -Syncopal Episode with a of loss of consciousness after hitting her head against a wall likely concussion for which patient was short lived and recovered. -Orthostatic hypotension likely due to blood pressure medication in a patient who was previously hypertensive -Essential hypertension. -Obstructive sleep apnea and does not use a CPAP machine. -Restless leg syndrome. -Gastroesophageal reflux disease. -Hyperlipidemia. -Anxiety depression not otherwise specified. -Spinal stenosis. -Occluded right carotid artery. -Restless leg syndrome. -Bipolar disorder PLAN: Patient episode was likely a syncopal episode, patient was found to have orthostatic hypotension, we will stop the Norvasc, decrease the dose of hydrochlorothiazide continue losartan and see how patient does. Plan of care discussed with the patient the bedside we will follow closely. SOCIAL INSURANCE ADVISER statement: Patient was seen and examined by nurse practitioner Paula Wagoner and all elements of the case discussed with attending Dr. Jauregui
--- NOTE | 2016-12-21 13:58 | P.PN ---
Progress Note - Text Progress Note Date: 12/21/16 DATE OF SERVICE: 12/21/2016 PRESENTING COMPLAINT: Dizziness lightheadedness HISTORY OF PRESENT ILLNESS: 76-year-old female who was admitted after falling off the commode while she was having a bowel movement. Lost her balance and fell off the commode hit her head hit the wall and passed out. INTERVAL HISTORY: 12/21/2016: Patient seen in follow-up today, sitting in bed appears anxious very upset about being sent home by cardiology. Vitals remained orthostatic, Norvasc was stopped, no complaints of dizziness or lightheadedness or weakness. Ambulating with assistance, tolerating her diet, moving her bowels. We will likely keep her an extra day to ensure her blood pressure is stable due to her concerns. 12/20/2016: Patient seen in follow-up today sitting up in bed appears comfortable, not in any distress. Orthostatic vitals taken and she was in fact found to have orthostatic blood pressure. No complaints of dizziness lightheadedness or weakness. Has been ambulating with assistance, tolerating her diet, moving her bowels. Awaiting cardiology to see her. REVIEW OF SYSTEMS: Done for constitutional ,cardiovascular, GI, pulmonary with relevant findings as above. CURRENT MEDICATIONS Xanax 0.25 mg by mouth daily, aspirin 81 mg by mouth at bedtime, Lipitor 10 mg by mouth at bedtime, Plavix 75 mg by mouth daily, Lovenox 40 mg subcu daily, Lexapro 40 mg by mouth daily, Pepcid 40 mg by mouth daily, hydrochlorothiazide 12.5 mg by mouth daily, Cozaar 100 mg by mouth daily, nortriptyline 20 g by mouth at bedtime, Singulair 10 mg by mouth at bedtime Requip 1 mg by mouth twice a day. PHYSICAL EXAM VITAL SIGNS: Temperature 97.7, pulse 52, respiratory rate 16, blood pressure sitting 120/75, standing 94/43 oxygen saturation 94% on room air GENERAL: [ sitting up, anxious appearing]. EYES: [Pupils equal. Conjunctiva michela]l. HEENT: [External appearance of nose and ears normal, oral cavity grossly normal] . NECK: [JVD not raised; masses not palpable]. HEART: [First and second heart sounds are normal; no edema]. LUNGS:[ Respiratory rate normal; diminished bases to auscultation]. ABDOMEN: [Soft, nontender, liver spleen not palpable, no masses palpable]. PSYCH: [Alert and oriented x3; mood and affect anxious l. INVESTIGATIONS: No new labs ASSESSMENT: -Syncopal Episode with a of loss of consciousness after hitting her head against a wall likely concussion for which patient was short lived and recovered. -Orthostatic hypotension likely due to blood pressure medication in a patient who was previously hypertensive -Essential hypertension. -Obstructive sleep apnea and does not use a CPAP machine. -Restless leg syndrome. -Gastroesophageal reflux disease. -Hyperlipidemia. -Anxiety depression not otherwise specified. -Spinal stenosis. -Occluded right carotid artery. -Restless leg syndrome. -Bipolar disorder PLAN: Patient episode was likely a syncopal episode, patient continues to have orthostatic hypotension, in spite of stopping the Norvasc and reducing hydrochlorothiazide. We will Hold her back an additional day to ensure blood pressure is stabilized. Plan of care discussed with the patient the bedside we will follow closely. WRAP TURNER statement: Patient was seen and examined by nurse practitioner Paula Wagoner and all elements of the case discussed with attending Dr. Jauregui
[2016-12-21] MEDS: ATORVASTATIN 10 MG TAB PO SCH (19:56)
[2016-12-21] MEDS: MONTELUKAST 10 MG TAB PO SCH (19:56)
[2016-12-21] MEDS: ASPIRIN 81 MG PO SCH (19:56)
[2016-12-21] MEDS: NORTRIPTYLINE 10 MG CAP PO SCH (19:56)
--- NOTE | 2016-12-21 21:37 | PN ---
PROGRESS NOTE DATE OF SERVICE: 12/21/2016. ATTENDING NOTE: The patient was seen and examined by me. I discussed with my nurse practitioner, Ms. Wagoner. This is a patient who presented with orthostatics. The patient's amlodipine was discontinued. Blood pressure is better controlled. The patient is rather apprehensive about going home and wants to wait 1 more day to see if she is a bit better. Up and about in the hallway otherwise. EXAMINATION: Afebrile. Blood pressure 154/75, repeat 123/76, pulse ox normal. LUNGS: Clear. CARDIOVASCULAR: First and second sounds normal. Patient is rather anxious-appearing. ASSESSMENT: 1. Orthostatic hypertension. Patient's amlodipine has been taken off. 2. Anxiety, somewhat uncontrolled, some part of it contributing to her high blood pressure. PLAN: Will watch for another 24 hours. I told the nurse to do manual blood pressures. Will get a psychiatry opinion as patient is already on antidepressant and psychiatric medications. Care was discussed at length with the patient. MMSHERIFL / IJN: [id number] /
[2016-12-22] MEDS: CLOPIDOGREL 75 MG TAB PO SCH (07:48)
[2016-12-22] MEDS: PSYLLIUM HUSK 100% 6 GM PACKET PO SCH (07:48)
[2016-12-22] MEDS: LOSARTAN 50 MG TAB PO SCH (07:48)
[2016-12-22] MEDS: FAMOTIDINE 20 MG TAB PO SCH (07:48)
[2016-12-22] MEDS: ESCITALOPRAM 20 MG TAB PO SCH (07:48)
[2016-12-22] MEDS: ACETAMINOPHEN TAB 325 MG TAB PO SCH (07:48)
[2016-12-22] MEDS: ENOXAPARIN 40 MG/0.4 ML SYRINGE SQ SCH (07:49)
[2016-12-22 07:54] VITALS: PULSE 93
[2016-12-22 12:23] VITALS: TEMP 97.3
--- NOTE | 2016-12-22 12:38 | PN ---
PROGRESS NOTE Mrs. East is here with a near-syncope with Norvasc. She is comfortable, resting. No orthostatic changes. Blood pressure is 140/70. S1, S2 are heard normally. Lungs are clear. Abdominal exam and lower extremity exam is unchanged. PLAN: Continue current medications and discharge her today. MMODL / IJN: [id number] /
[2016-12-22 15:15] VITALS: BP 154/75
--- NOTE | 2016-12-22 22:29 | CONS ---
CONSULTATION DATE OF SERVICE: 12/22/2016. PURPOSE FOR CONSULTATION: Evaluate for anxiety, depression. HISTORY OF PRESENT ILLNESS: The patient is a 76-year-old female. She was admitted to the medical floor due to near syncope, possibly relating to Norvasc or other medications. She had a previous admission and was discharged on December 18 relating to hypertension with a blood pressure 220/128 on presentation. She was stabilized. She went home. She apparently had a fall when she was in the bathroom sitting on the toilet stool. She apparently had leaning forward and then lost her balance. She hit her head against the wall and went down to the ground. She lost consciousness, though recalled that EMS was coming. She was quite panicky. She tells me today that her main issue is that she has had just a couple recent severe panic attacks where she gets quite distressed. She wonders whether her high blood pressure readings relate to having panic. She said that some of her panic issues have been a little more prominent in the last week or 2. She does acknowledge that she has had a longer-term problems with depression. Her current psychotropic medications include Pamelor 20 mg a day. She said it had just been reduced in June down to 20 mg. She is also on Lexapro 40 mg a day and Xanax 0.25 mg p.r.n. She says she takes the Xanax very infrequently. She does note that she has anxiety and some issues of feeling tense. She gave as one example of that she has teeth grinding problems and uses a bite splint. She notes also that she has been having persistent problems with headaches going back to August. In reviewing her longer- term psychiatric history, the patient has a depression problems much of her adult life, but perhaps starting in her 30s if not earlier. She acknowledges some serious grief issues with a son about 12 years ago from a brain tumor. In the past she had seen Dr. Payan and for several years she has been seeing Dr. Knowles. She notes that she has been on various psychotropic medications. She says that in the past she had been on various antidepressants, though also on lithium. She said that she would take antidepressants for a period of time. This seemed to help her and then they would seem to be less effective prompting a medication change. She said that the best to her knowledge when she was on antidepressant she would get good trials of medications with the doses titrated up to higher doses. She said doctors would tell her that they can go higher on the medications. She does note that she has likely had some episodes of hypomania, if not adan. She has not had a psychiatric hospitalization or any serious problems. She does say that she will get into episodes where she will feel over energized. Her need for sleep will be reduced though never too a serious degree. She will have increase spending and some poor judgment. She said at one point that she believed her first manic episode was perhaps about 6 years ago and at that time she had got started on Pamelor. On the other hand, she then seemed to make some suggestion that there may have been some manic issues much earlier in her life. She notes that she does have seasonal effects where in the wintertime she will tend to get depressed and in the springtime her mood can get elevated. She is able to describe that these episodes of increased energy, spending sprees and decreased need for sleep do seem to occur episodically and then will quiet down. She believes that Pamelor has been a helpful medication for her. She said that she was not exactly clear as to why the Pamelor was reduced, she said that at one point she thinks she was on Latuda. She was less clear about whether she has been on any other anti manic medications beyond lithium. She reports that she has a good relationship with her psychiatrist, Dr. Rich and that she believes he has a good understanding of her general psychiatric issues. She said that she had an appointment coming up with Dr. Rich in early January and was able to give a specific date. She notes that she does have some stress issues in that she is concerned about her 's health issues and that this has placed a burden on her and her . She says the problem she has with seeing Dr. Rich is that he is at a distance and it is hard for her to travel that distance to see him. She is hopeful that she could get a referral to Dr. Woods. MENTAL STATUS: Patient was lying in bed with her head up. She gave good eye contact. Psychomotor activity was a little restless. Her thoughts were clear. She answered questions appropriately. She was spontaneous and interactive. She gave a very detailed history. Her thoughts were clear and coherent and goal directed. Her affect was somewhat anxious. She related appropriately. She smiled some. Her mood was in a reasonable range. She did appear to be significantly distressed. There was no indication for thought disorder. There was no indication for hypomanic manic or depressive symptoms. ASSESSMENT: This 76-year-old female is diagnosed with probable bipolar 2 disorder. She appears to present a history with discrete episodes of hypomania or possible adan along with episodes of depression. It is noteworthy that in her history, she has had problems earlier in her life with recurrent depression and that perhaps hypomanic episodes have surfaced in the last several years. Typically, bipolar disorder, presents otherwise with more manic episodes earlier in life and less so later on. I indicated to the patient that overall I would defer to Dr. Rich in regards to diagnostics as he knows her quite well and has worked with her over an extended period time. I had an extensive discussion with the patient regarding her psychotropic medications. Given the panic attacks she has had plus given the high a blood pressure she had I indicated that I was doubtful that her panic symptoms would cause her pressure blood pressure to go as high as they did. I encouraged her to get a hold of Dr. Rich as soon as possible just to keep him updated about the situation and possibly to see him earlier than the January appointment. I had extensive discussion with the patient regarding psychotropic medications. I discussed that she might benefit by going back up on Pamelor, though I also discussed with her that tricyclic antidepressants do have a increase risk for exacerbating adan. There might be consideration for the patient to be on lithium. She does have a normal creatinine with her level on this admission being 0.76. On the other hand, sometimes people in an older age range even with normal creatinine function may be susceptible to renal issues with lithium. In regards to antidepressant medications I reviewed with her that she is on generally accepted a high dose of Lexapro. If has not been consistently effective for her, there might be consideration to be off of Lexapro altogether. I discussed that with any antidepressant given her long-term history, it is critical to titrate up to maximum doses and that would need to be addressed based on having clear medical records and to review with her psychiatrist. I discussed with her that if she has persistent issues of depression, anxiety and panic that do not consistently respond to standard antidepressant medications, there might be consideration for an MAO inhibitor which can have significant benefits both for anxiety and panic along with depression that may produce a better outcome compared to the standard antidepressants that we used. She might also benefit from the addition of an anti-manic medication that could also augment antidepressants. Zyprexa might be an option given that it has an indication in conjunction with Prozac for a bipolar depression as well as bipolar adan. Zyprexa has the benefit of generally low side effects, particularly in terms of EPS symptoms. On the other hand, there is an increased risk for metabolic issues. Alternatives would include Seroquel and Latuda which also have its indications for bipolar depression along with adan. One other alternative could be Abilify which does seem to be used fairly frequently as an antidepressant augmentation medication and also has benefits and stabilizing the bipolar adan. Anti seizure medications including Depakote and Tegretol also may have a role as well. I indicated to the patient that I would outline these recommendations in this note and that she could get a copy of this note to take to Dr. Rich. I would encourage her to work with her primary care physician to see if she can get a referral to Dr. Woods as soon as possible. At this point, I would not make any change in her medications though as noted above I have encouraged her to try to get an appointment as soon as possible with Dr. Rich for further evaluation. MMODL / IJN: [id number] /
--- NOTE | 2016-12-23 05:35 | DS ---
DISCHARGE SUMMARY DATE OF ADMISSION: 12/19/16. DATE OF DISCHARGE: 12/22/16. FINAL DIAGNOSES: 1. Syncope from orthostatic hypertension. 2. Essential hypertension. 3. Obstructive sleep apnea does not use CPAP machine. 4. Restless legs syndrome. 5. Gastroesophageal reflux disease. 6. Hyperlipidemia. 7. Anxiety, depression, not otherwise specified. 8. Chronic spinal stenosis. 9. Occluded right carotid artery. HOSPITAL COURSE: This patient who recently in the hospital with chest pain with negative stress test. Patient presented with passing out. The patient is found to be orthostatic, Norvasc was discontinued. Seen by Dr. Doug Lockwood from cardiology. Okay to be discharged. The patient did get rather anxious and may be contributing to the blood pressure. If the patient continues to spike blood pressure, then further workup will be need to be done for paroxysmal hypertension including adrenal studies. The patient's blood pressure is 150 systolic by the time she was discharged. EXAM: Lungs are clear. Cardiovascular first and second sounds. Care was discussed in detail with the patient. CONSULTATION: Dr. Doug Lockwood from cardiology and Dr. Slade from Psychiatry. No change in medications for her. DISCHARGE MEDICATIONS: 1. Xanax 0.25 p.o. daily p.r.n. 2. Tylenol 650 mg p.o. t.i.d. 3. Aspirin 81 mg p.o. q.h.s. 4. Lipitor 10 mg q.h.s. 5. Plavix 75 p.o. daily. 6. Lexapro 40 mg p.o. daily. 7. Pepcid 40 mg p.o. daily. 8. Singulair 10 mg p.o. q.h.s. 9. 20 mg q.h.s. 10.Requip 1 mg p.o. b.i.d. 11.Hydrochlorothiazide 25 p.o. daily. 12.Cozaar 100 mg p.o. daily. 13.Metamucil 6 g p.o. daily. Follow up with Dr. Beintez in 1 week, follow up with Dr. Wallace in 3 days. The patient told to keep a log of her blood pressure to be taken every morning. Discussed at length. On examination patient is slightly anxious appearing. Lungs are clear. Cardiovascular first and second sounds normal. Discharge planning more than 35 minutes. MMODL / IJN: [id number] /
== END 2016-12-22 16:15 | disposition home or self-care (01) ==
LOC: EC 12:30 → INTOOBSV 15:11 → 6SEL 15:11
PROVIDERS: ADMIT Hospitalist; ATTEND Hospitalist
DX: I95.1 Orthostatic hypotension (principal); I10 Essential (primary) hypertension; F41.9 Anxiety disorder, unspecified; I65.21 Occlusion and stenosis of right carotid artery; I49.3 Ventricular premature depolarization; G47.33 Obstructive sleep apnea (adult) (pediatric); F32.9 Major depressive disorder, single episode, unspecified; G25.81 Restless legs syndrome; K21.9 Gastro-esophageal reflux disease without esophagitis; E78.5 Hyperlipidemia, unspecified; J30.2 Other seasonal allergic rhinitis; M19.90 Unspecified osteoarthritis, unspecified site; M48.00 Spinal stenosis, site unspecified; G89.29 Other chronic pain; R22.40 Localized swelling, mass and lump, unspecified lower limb; Z88.2 Allergy status to sulfonamides; Z79.02 Long term (current) use of antithrombotics/antiplatelets; Z79.82 Long term (current) use of aspirin; Z79.899 Other long term (current) drug therapy; Z88.5 Allergy status to narcotic agent; Z88.6 Allergy status to analgesic agent; Z88.8 Allergy status to other drugs, medicaments and biological substances; Z87.891 Personal history of nicotine dependence; Z86.73 Personal history of transient ischemic attack (TIA), and cerebral infarction without residual deficits; Z91.018 Allergy to other foods; W18.12XA Fall from or off toilet with subsequent striking against object, initial encounter; Y92.002 Bathroom of unspecified non-institutional (private) residence as the place of occurrence of the external cause; Z82.49 Family history of ischemic heart disease and other diseases of the circulatory system
CPT/HCPCS: 99291 ×2; 96374 ×2; 96375 ×2; 96361 ×7; 96372 ×2; 36415; 93005; 80053; 80048; 82150; 82550; 82553; 83690; 84484 ×2; 85025 ×2; 85610; 85730; 81003; 71020; 74000; 72125; 70450; G0378 ×5; J2060; J2405; J1650 ×2

== ENCOUNTER → 2016-12-26 | Outpatient (CLI) | payer MEDICARE, BC | END | disposition home or self-care (01) | LOC: LABWHC1 16:29 | PROVIDERS: ATTEND Psychiatry & Neurology Neurology | DX: I10 Essential (primary) hypertension (principal); D35.00 Benign neoplasm of unspecified adrenal gland | CPT/HCPCS: 36415; 83835; 84439; 84443 ==

== ENCOUNTER → 2017-03-06 | Outpatient (CLI) | payer MEDICARE, BC ==
--- NOTE | 2017-03-06 18:18 | PN ---
PROGRESS NOTE DATE OF SERVICE: 03/06/2017 This patient is a 77-year-old lady who has been followed in the sleep center for treatment of obstructive sleep apnea-hypopnea syndrome. Recently the patient had a polysomnogram and CPAP titration, and I discussed results of the sleep studies with her in detail. Diagnostic sleep study showed apnea-hypopnea index in severe range at 54.4 with oxygen desaturation to 83%. During CPAP titration, her breathing was under control with CPAP pressure at 11 cm of water. Subsequently the patient was started on treatment with CPAP and today she came for her first follow-up visit on CPAP with her CPAP unit. I checked her CPAP unit. CPAP pressure is 11 cm of water. Usage is 16/30 nights and 15/30 nights for more than 4 hours. Average usage is 6.1 hours. Leak from the mask 31 L/minute. The patient has mask. Apnea-hypopnea index reading from the machine is only 2.9, which is in normal range. Patient still sleeps many hours, according to her, and sometimes she still feels sleepy during the day. [place] Sleepiness Scale today is 6, which is normal. MEDICATIONS: 1. Lexapro. 2. Losartan. 3. Atorvastatin. 4. Eliquis. 5. Nortriptyline. 6. Xanax. 7. Ropinirole. 8. Singulair. 9. . 10.Metoprolol. PHYSICAL EXAMINATION: Patient in no distress. VITAL SIGNS: BP 141/84, HR 64, RR 16, height 5 feet 3 inches, weight 141, temperature 97.2, oxygen saturation at room air 95%. BMI 24.9. HEENT: PERRLA, EOMI. Evaluation of oropharynx showed tongue protrudes midline; low position of soft palate. NECK: Supple. No JVD. Thyroid is not palpable. LUNGS: Clear to percussion and to auscultation. Good air exchange. No wheezing or rhonchi. HEART: S1, S2 regular. No murmurs, gallops or rubs. ABDOMEN: Soft and nontender. Bowel sounds are present. No organomegaly appreciated. EXTREMITIES : No clubbing or cyanosis. FOREST FIRE LOOKOUT: Awake, alert, and oriented X3. Cranial nerves 2 to 7 intact. There is no fasciculation or atrophy. noted. No focal deficits observed. IMPRESSION: 1. Severe obstructive sleep apnea-hypopnea syndrome; apnea-hypopnea index 54.4 with oxygen desaturation to 83%, under control with CPAP at 11 cm of water. The patient demonstrated borderline compliance with treatment, benefitting from treatment. 2. Hypertension. 3. Hyperlipidemia. 4. History of restless legs syndrome. 5. Depression. 6. Seasonal allergies. PLAN: 1. Continue treatment with CPAP every night. 2. We will consider fitting patient with nasal pillow mask. 3. Sleep hygiene with regular time in bed for at least 8 hours. 4. No driving if feeling any sleepiness. Thank you very much for allowing me to participate in the management of your patient. Sincerely, Rk White MD, PhD, FAASM Diplomat of [employer] Compounder of [facility] [place] MMSHERIFL / IJDebora: [id number] /
== END | disposition home or self-care (01) ==
LOC: SLEEP 15:19
PROVIDERS: ATTEND Internal Medicine
DX: G47.33 Obstructive sleep apnea (adult) (pediatric) (principal); G25.81 Restless legs syndrome; I10 Essential (primary) hypertension; E78.5 Hyperlipidemia, unspecified; F32.9 Major depressive disorder, single episode, unspecified; J30.2 Other seasonal allergic rhinitis; Z79.01 Long term (current) use of anticoagulants; Z79.899 Other long term (current) drug therapy; Z99.89 Dependence on other enabling machines and devices

== ENCOUNTER → 2017-05-29 | Outpatient (CLI) | payer MEDICARE, BC ==
--- NOTE | 2017-05-29 15:10 | SFUN ---
SLEEP CENTER FOLLOW UP NOTE DATE OF SERVICE: 05/29/2017 77-year-old lady who has been followed in Sleep Center for treatment of obstructive sleep apnea-hypopnea syndrome. The patient continued to use her CPAP equipment with a pressure of 11 cm of water. During the previous visit, she was recommended to switch her mask to nasal pillow mask but because insurance covered new mask every 6 months only patient was not able to get a new mask. But again at the same time she is using her CPAP equipment with another mask right now and she feels better with that treatment. [place] Sleepiness Scale today is 5. The patient did not bring her CPAP unit with her, so I cannot check it right now. MEDICATIONS: Lexapro, losartan, atorvastatin, Eliquis, nortriptyline, Xanax, ropinirole, Singulair, metoprolol. PHYSICAL EXAM: GENERAL Patient in no distress. VITAL SIGNS BP 107/61, HR 62, RR 16, height 5 feet 2-1/2, weight 148, BMI 26.6, temp 97.6, O2 saturation at room air 98%. HEENT PERRLA, EOMI, evaluation of oropharynx showed low position of soft palate NECK Supple, no JVD. Thyroid is not palpable. LUNGS Clear to percussion and to auscultation. Good air exchange. No wheezing or rhonchi. HEART S1, S2 regular. No murmurs, gallops, or rubs. ABDOMEN Soft and nontender. Bowel sounds are present. No organomegaly appreciated. EXTREMITIES No clubbing or cyanosis. RN SUPPORT SERVICES Awake, alert, and oriented X3. Cranial nerves 2 to 7 intact. There is no fasciculation or atrophy. noted. No focal deficits observed. IMPRESSION: 1. Obstructive sleep apnea-hypopnea syndrome. The patient improved her compliance with CPAP treatment, benefitting from treatment. 2. Hypertension. 3. Hyperlipidemia. 4. History of restless legs syndrome. 5. Depression. 6. Seasonal allergies. PLAN: 1. Patient will continue to use her CPAP equipment every night. 2. I will give you prescription to extend her trial for another 90 days. 3. Sleep hygiene during time in bed for at least 8 hours. 4. No driving if feeling sleepiness. Thank you very much for allowing me to participate management of your patient. Sincerely, Rk White MD, PhD, FAASM Diplomat of [employer] Project Asst of [facility] [place] MMODL / CIERAN: [id number] /
== END ==
LOC: SLEEP 13:48
PROVIDERS: ATTEND Internal Medicine
DX: G47.33 Obstructive sleep apnea (adult) (pediatric) (principal); I10 Essential (primary) hypertension; E78.5 Hyperlipidemia, unspecified; J30.2 Other seasonal allergic rhinitis; F32.9 Major depressive disorder, single episode, unspecified; Z87.898 Personal history of other specified conditions; Z99.89 Dependence on other enabling machines and devices; Z79.899 Other long term (current) drug therapy; Z79.01 Long term (current) use of anticoagulants

== ENCOUNTER → 2017-06-11 | Outpatient (CLI) | payer MEDICARE, BC ==
--- NOTE | 2017-06-11 16:24 | MR ---
EXAMINATION TYPE: MR thoracic spine wo con DATE OF EXAM: 06/11/2017 COMPARISON: NONE HISTORY: Radiculopathy thoracic region, back pain CONTRAST: Performed utilizing 0 mL intravenous Gadavist gadolinium contrast. TECHNIQUE: Multiplanar, multiecho imaging on a 3.0 Genesis magnet is performed through the thoracic spi ne. Spinal cord maintains normal signal through its visualized course. Vertebral body alignment is normal. Vertebral body heights are preserved. Mild diffuse disc space narrowing may be present. There is disc desiccation throughout the thoracic spine. No spinal canal stenosis is evident. T6-T7: There is a moderate size left paracentral disc herniation with moderate anterior thecal sac co mpression. No cord contact is evident. Cord deformity however is evident. No spinal canal stenosis is present. Neural foramen are patent. T7-T8: There is a small left paracentral disc bulge with mild anterior thecal sac compression. No cor d contact is evident. No spinal canal stenosis is present. Neural foramen are patent. IMPRESSIONS: 1. Moderate size focal disc herniation T6-7 with moderate anterior thecal sac compression without froilan nosis. 2. Small left paracentral disc bulge T7-8 without cord contact and mild anterior thecal sac compressi on.
== END | disposition home or self-care (01) ==
LOC: RADMRIMAIN 15:30
PROVIDERS: ATTEND Family Medicine
DX: M51.14 Intervertebral disc disorders with radiculopathy, thoracic region (principal); G95.29 Other cord compression
CPT/HCPCS: 72146

== ENCOUNTER → 2017-09-11 | Outpatient (CLI) | payer MEDICARE, BC ==
--- NOTE | 2017-09-11 13:13 | PN ---
PROGRESS NOTE DATE OF SERVICE: 09/11/2017 A 77-year-old lady who has been followed in the Sleep Center for treatment of obstructive sleep apnea-hypopnea syndrome. Several months ago patient was started on treatment with CPAP but at the beginning of the treatment she had problems, was not able to use machine. We changed the mask to nasal pillow mask and with this mask patient feels much better, able to use machine every night without problems. Sleep is better and feel better during the day. I checked her CPAP unit. CPAP pressure is 11 cm of water, starting with the ramp from 5 cm of water for 45 minutes. Usage is /30 nights and more than 4 hours 22/30 nights. Average usage 5.7 hours. Leak 24 L/minute which is acceptable. Apnea- hypopnea index reading for the last month 4.3, for the last night only 1.3. Patient sometimes feels that it is not enough pressure in the mask in the moment when she is starting to use equipment. MEDICATIONS: Lexapro, losartan, atorvastatin, Eliquis, nortriptyline, Xanax, Ropinirole, Singulair, metoprolol. PHYSICAL EXAM: Patient in no distress. BP 120/83, HR 63, RR 16, weight 146.8, temp 99.1. OROPHARYNX: Low position of soft palate. Neck Supple, no JVD. Thyroid is not palpable. LUNGS Clear to percussion and to auscultation. Good air exchange. No wheezing or rhonchi. HEART S1, S2 regular. No murmurs, gallops, or rubs. ABDOMEN Soft and nontender. Bowel sounds are present. No organomegaly appreciated. EXTREMITIES No clubbing or cyanosis. SALES ASSOCIATE KEY HOLDER Awake, alert, and oriented X3. Cranial nerves 2 to 7 intact. There is no fasciculation or atrophy. noted. No focal deficits observed. IMPRESSION: 1. Obstructive sleep apnea-hypopnea syndrome. Patient demonstrated great compliance with treatment, benefitting from treatment. 2. Hypertension. 3. Hyperlipidemia. 4. History of restless legs syndrome, on treatment with ropinirole. 5. Depression. 6. Seasonal allergies. PLAN: 1. Patient will continue to use CPAP equipment every night for the whole night. 2. I increased starting pressure in the machine to 6 cm of water instead of 5 cm of water. 3. Sleep hygiene with regular time in bed for at least 8 hours. 4. No driving if feeling any sleepiness. 5. Will maintain all necessary prescription for CPAP supplies including mask, tube, filters. 6. Followup visit in 10 months or earlier if patient has any problems. Thank you very much for allowing me to participate in the management of your patient. Sincerely, Rk White MD, PhD, FAASM Diplomat of [employer] Surgeon'S Assistant of [facility] [place] MMODL / IJN: [id number] /
== END | disposition home or self-care (01) ==
LOC: SLEEP 11:37
PROVIDERS: ATTEND Internal Medicine
DX: G47.33 Obstructive sleep apnea (adult) (pediatric) (principal); G25.81 Restless legs syndrome; I10 Essential (primary) hypertension; E78.5 Hyperlipidemia, unspecified; F32.9 Major depressive disorder, single episode, unspecified; J30.2 Other seasonal allergic rhinitis; Z79.01 Long term (current) use of anticoagulants; Z99.89 Dependence on other enabling machines and devices; Z79.899 Other long term (current) drug therapy

== ENCOUNTER 2017-11-26 08:51 | Emergency (ER) | payer MEDICARE, BC ==
--- NOTE | 2017-11-26 09:24 | ED ---
Upper Extremity HPI - General Chief Complaint: Extremity Injury, Upper Stated Complaint: Swollen hand Time Seen by Provider: 11/26/17 09:12 Source: patient, RN notes reviewed, old records reviewed Mode of arrival: wheelchair Limitations: no limitations - History of Present Illness Initial Comments: Patient is a 77-year-old female presents emergency department today with her daughter with chief complaint of right wrist pain and swelling. Patient reports that she woke up this morning in the middle of the night and complained of some significant swelling and pain to the right wrist. She ports that she has a small burn that occurred one week ago over the distal fourth metacarpal. Patient states that she has had no other pain since that occurred. Patient states that she has some pain with heeler strength. Patient denies any elbow pain. She denies a streaking up the arm. She states she did put ice on her wrist and the swelling have diminished. She denies any recent fevers or chills. Denies any other complaints.Patient is a history of chest pain, CVA, GERD, hyperlipidemia, hypertension, arthritis or arthritis, sleep apnea. Patient denies any recent fever, chills, shortness of breath, chest pain, back pain, abdominal pain, nausea vomiting, numbness or tingling, dysuria or hematuria, constipation or diarrhea, headaches or visual changes, or any other current symptoms - Related Data Home Medications Medication Instructions Recorded Confirmed ALPRAZolam [Xanax] 0.25 mg PO DAILY PRN 12/17/16 11/26/17 Atorvastatin [Lipitor] 10 mg PO HS 12/17/16 11/26/17 Escitalopram [Lexapro] 40 mg PO DAILY 12/17/16 11/26/17 Famotidine 40 mg PO DAILY 12/17/16 11/26/17 Montelukast [Singulair] 10 mg PO HS 12/17/16 11/26/17 Nortriptyline [Pamelor] 20 mg PO HS 12/17/16 11/26/17 rOPINIRole HCL [Requip] 1 mg PO BID 12/17/16 11/26/17 Apixaban [Eliquis] 5 mg PO BID 11/26/17 11/26/17 Fexofenadine HCl [Anna Allergy] 180 mg PO DAILY 11/26/17 11/26/17 Metoprolol Tartrate [Lopressor] 25 mg PO BID 11/26/17 11/26/17 Terazosin [Hytrin] 1 mg PO DAILY 11/26/17 11/26/17 Previous Rx's Medication Instructions Recorded Losartan [Cozaar] 100 mg PO DAILY tab 12/18/16 Ibuprofen 600 mg PO TID #20 tablet 11/26/17 Allergies Allergy/AdvReac Type Severity Reaction Status Date / Time acetaminophen [From [place]] Allergy Rash/Hives Verified 11/26/17 09:30 hydrocodone [From [place]] Allergy Rash/Hives Verified 11/26/17 09:30 Sulfa (Sulfonamide Allergy Rash/Hives Verified 11/26/17 09:30 Antibiotics) aripiprazole [From Abilify] AdvReac Hallucinati Verified 11/26/17 09:30 ons banana AdvReac Nausea & Verified 11/26/17 09:30 Vomiting & Diarrhea bupropion [From Wellbutrin] AdvReac Hallucinati Verified 11/26/17 09:30 ons codeine AdvReac Nausea & Verified 11/26/17 09:30 Vomiting morphine AdvReac Nausea & Verified 11/26/17 09:30 Vomiting propoxyphene [From [place]] AdvReac Nausea & Verified 11/26/17 09:30 Vomiting Review of Systems ROS Statement: Those systems with pertinent positive or pertinent negative responses have been documented in the HPI. ROS Other: All systems not noted in ROS Statement are negative. Past Medical History Past Medical History: Chest Pain / Angina, CVA/TIA, GERD/Reflux, Hyperlipidemia , Hypertension, Osteoarthritis (OA), Sleep Apnea/CPAP/BIPAP Additional Past Medical History / Comment(s): DDD, DJD, SPINAL STENOSIS, occluded carotid right artery, RLS, seasonal allergies.CPAP USED. HAD GERD IN PAST NONE SINCE HIATAL HERNIA SX.,CARDIOMYOPATHY History of Any Multi-Drug Resistant Organisms: None Reported Past Surgical History: Adenoidectomy, Appendectomy, Bladder Surgery, Cholecystectomy, Hysterectomy, Joint Replacement, Tonsillectomy Additional Past Surgical History / Comment(s): bilateral hip replacments, partial hysterectomy-still has ovaries, sinus sx,niko cataracts-lens implants, hiatal hernia sx Past Anesthesia/Blood Transfusion Reactions: No Reported Reaction Past Psychological History: Depression Smoking Status: Former smoker - Past Family History Mother Family Medical History: Cancer Additional Family Medical History / Comment(s): colon cancer Father Family Medical History: Congestive Heart Failure (CHF) General Exam - General Exam Comments Initial Comments: This patient's a 77-year-old female. Alert and oriented 3. Patient is in no acute distress. Limitations: no limitations General appearance: alert, in no apparent distress Head exam: Present: atraumatic, normocephalic, normal inspection Eye exam: Present: normal appearance, PERRL, EOMI. Absent: scleral icterus, conjunctival injection, periorbital swelling ENT exam: Present: normal exam, mucous membranes moist Neck exam: Present: normal inspection. Absent: tenderness, meningismus, lymphadenopathy Respiratory exam: Present: normal lung sounds bilaterally. Absent: respiratory distress, wheezes, rales, rhonchi, stridor Cardiovascular Exam: Present: regular rate, normal rhythm, normal heart sounds. Absent: systolic murmur, diastolic murmur, rubs, gallop, clicks Right Elbow exam: Present: normal inspection, full ROM Forearm Wrist exam: Present: erythema (Plan erythema over the dorsum of the right wrist.). Absent: normal inspection, full ROM ( reports pain with flexion and extension. No pain with pronation and supination.) Hand Wrist exam: Present: normal inspection, full ROM Course Vital Signs 11/26/17 11/26/17 08:57 10:55 Temperature 98.7 F 97.8 F Pulse Rate 88 71 Respiratory 16 18 Rate Blood Pressure 157/77 122/80 O2 Sat by Pulse 97 99 Oximetry Procedures - Orthopedic Splinting/Casting Injury #1 Side: right Upper Extremity Injury Location: wrist Upper Extremity Immobilizer: volar splint, [place] wrap, synthetic pre-padded splint Medical Decision Making - Medical Decision Making 77-year-old female present in today with right wrist pain and swelling. She reports it occurred in the middle the night. No falls or trauma. Patient has significant history of osteoarthritis. On initial exam she did have some minor edema over the dorsum of the right wrist. Patient applied ice and the swelling and went down while she was in the emergency department. 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 I discussed that I believe patient's onset of pain is likely related to a noninfectious inflammatory arthritis such as gout or CPPD. Patient was placed in a volar splint for comfort. I discussed that she needs to follow-up with naval architect specialist. Discussed using anti-inflammatory medication. She is ALLERGIC to ibuprofen and she does take Tylenol for arthritis. I discussed that if she has any worsening redness or swelling to the wrist for any fevers or chills that she must return. She had no ruling skin changes when I reevaluated the Patient. Patient agrees to close follow-up with Roque milan. All questions answered return parameters were discussed. - Radiology Data Radiology results: report reviewed Debora Merino shows trace of the base of the thumb. Possible bone spur projecting laterally at the distal radius couldn't mass effect on the first dorsal extensor tendon compartment. There is synovial and TFC calcifications may reflect CPPD Disposition Clinical Impression: Joint inflammation of wrist Disposition: HOME SELF-CARE Condition: Good Instructions: Osteoarthritis (ED) Additional Instructions: Patient to remain in the splint. Follow-up with naval architect specialist. Return to emergency department if any alarming signs or symptoms occur. Prescriptions: Ibuprofen 600 mg PO TID #20 tablet Is patient prescribed a controlled substance at d/c from ED?: No Referrals: Lan Wallace MD [Primary Care Provider] - 1-2 days Remy Manriquez MD [STAFF PHYSICIAN] - 1-2 days Time of Disposition: 10:34
--- NOTE | 2017-11-26 09:47 | XR ---
EXAMINATION TYPE: XR wrist complete RT DATE OF EXAM: 11/26/2017 COMPARISON: NONE HISTORY: 77-year-old female with pain TECHNIQUE: 4 views FINDINGS: There is end-stage degenerative change at the base of the thumb, first CMC joint with a essentially b one-on-bone articulation, extensive subchondral sclerosis, cystic change, marginal spurring, and hype rtrophic changes with loose bodies. Additional degenerative changes, at least moderate within the tri scaphe joint. There are synovial calcifications with TFCC calcifications. Either loose body or large bone spur projecting along the lateral aspect of the distal radial meta-epiphysis. No acute fracture, subluxation, or dislocation seen. IMPRESSION: 1. End-stage OA at the base of the thumb. 2. Possible bone spur projecting laterally at the distal radius could mass effect onto the first dors al extensor tendon compartment. 3. Synovial and TFC calcifications may reflect CPPD.
[2017-11-26] MEDS ORDERED: traMADol 50 MG TAB PO STA (10:49)
[2017-11-26] MEDS ORDERED: ACETAMINOPHEN TAB 500 MG TAB PO STA (10:50)
[2017-11-26 10:57] VITALS: BP 122/80; PULSE 71; RESP 18; TEMP 97.8
== END 2017-11-26 10:57 | disposition home or self-care (01) ==
LOC: EC 08:51
DX: M19.031 Primary osteoarthritis, right wrist (principal); L53.9 Erythematous condition, unspecified; E78.5 Hyperlipidemia, unspecified; I11.9 Hypertensive heart disease without heart failure; G25.81 Restless legs syndrome; G47.30 Sleep apnea, unspecified; F32.9 Major depressive disorder, single episode, unspecified; Z87.891 Personal history of nicotine dependence; Z88.2 Allergy status to sulfonamides; Z88.5 Allergy status to narcotic agent; Z88.6 Allergy status to analgesic agent; Z88.8 Allergy status to other drugs, medicaments and biological substances; Z91.018 Allergy to other foods; Z79.01 Long term (current) use of anticoagulants; Z79.899 Other long term (current) drug therapy; Z91.048 Other nonmedicinal substance allergy status; Z86.79 Personal history of other diseases of the circulatory system; Z86.73 Personal history of transient ischemic attack (TIA), and cerebral infarction without residual deficits; Z99.89 Dependence on other enabling machines and devices
CPT/HCPCS: 99284

== ENCOUNTER 2017-11-27 15:24 | Inpatient (IN) | payer MEDICARE, BC ==
[2017-11-27] MEDS ORDERED: cefTRIAXone 2,000 MG in SODIUM CHLORIDE 0.9% 100 ML IVPB STA (15:33)
[2017-11-27] MEDS ORDERED: VANCOMYCIN IV PER PHARMACY 1 EACH MISC MISCELLANE PRN (15:34)
[2017-11-27] MEDS ORDERED: GENTAMICIN PER PHARMACY MISCELLANE SCH (15:45)
[2017-11-27] MEDS ORDERED: ACETAMINOPHEN TAB 500 MG TAB PO STA (15:55)
[2017-11-27] MEDS ORDERED: SODIUM CHLORIDE 0.9% 500 ML 500 ML IV ONE (15:55)
[2017-11-27] MEDS ORDERED: VANCOMYCIN 1,500 MG in SODIUM CHLORIDE 0.9% 250 ML IVPB ONE (16:00)
[2017-11-27] MEDS: SODIUM CHLORIDE 0.9% 1,000 ML IV SCH (16:05)
--- NOTE | 2017-11-27 16:09 | ED ---
General Adult HPI - General Chief complaint: Extremity Problem,Nontraumatic Stated complaint: pain in wrist Time Seen by Provider: 11/27/17 15:31 Source: patient, RN notes reviewed, old records reviewed Mode of arrival: ambulatory Limitations: no limitations - History of Present Illness Initial comments: 77-year-old female presenting for evaluation of right wrist pain and swelling. Patient was seen and orthopedic follow-up today for evaluation of this pain and swelling. There was concern for septic arthritis, aspiration was performed in the clinic and patient is accompanied with lab specimens. She has had subjective fever and chills. - Related Data Home Medications Medication Instructions Recorded Confirmed Atorvastatin [Lipitor] 10 mg PO HS 12/17/16 11/27/17 Escitalopram [Lexapro] 40 mg PO DAILY 12/17/16 11/27/17 Famotidine 40 mg PO DAILY 12/17/16 11/27/17 Montelukast [Singulair] 10 mg PO HS 12/17/16 11/27/17 Nortriptyline [Pamelor] 20 mg PO HS 12/17/16 11/27/17 rOPINIRole HCL [Requip] 1 mg PO BID 12/17/16 11/27/17 Apixaban [Eliquis] 5 mg PO BID 11/26/17 11/27/17 Fexofenadine HCl [Anna Allergy] 180 mg PO DAILY 11/26/17 11/27/17 Metoprolol Tartrate [Lopressor] 25 mg PO BID 11/26/17 11/27/17 Terazosin [Hytrin] 1 mg PO DAILY 11/26/17 11/27/17 Previous Rx's Medication Instructions Recorded Losartan [Cozaar] 100 mg PO DAILY tab 12/18/16 Ibuprofen 600 mg PO TID #20 tablet 11/26/17 Allergies Allergy/AdvReac Type Severity Reaction Status Date / Time acetaminophen [From [place]] Allergy Rash/Hives Verified 11/27/17 15:50 hydrocodone [From [place]] Allergy Rash/Hives Verified 11/27/17 15:50 Sulfa (Sulfonamide Allergy Rash/Hives Verified 11/27/17 15:50 Antibiotics) aripiprazole [From Abilify] AdvReac Hallucinati Verified 11/27/17 15:50 ons banana AdvReac Nausea & Verified 11/27/17 15:50 Vomiting & Diarrhea bupropion [From Wellbutrin] AdvReac Hallucinati Verified 11/27/17 15:50 ons codeine AdvReac Nausea & Verified 11/27/17 15:50 Vomiting morphine AdvReac Nausea & Verified 11/27/17 15:50 Vomiting propoxyphene [From [place]] AdvReac Nausea & Verified 11/27/17 15:50 Vomiting Review of Systems ROS Statement: Those systems with pertinent positive or pertinent negative responses have been documented in the HPI. ROS Other: All systems not noted in ROS Statement are negative. Past Medical History Past Medical History: Chest Pain / Angina, CVA/TIA, GERD/Reflux, Hyperlipidemia , Hypertension, Osteoarthritis (OA), Sleep Apnea/CPAP/BIPAP Additional Past Medical History / Comment(s): DDD, DJD, SPINAL STENOSIS, occluded carotid right artery, RLS, seasonal allergies.CPAP USED. HAD GERD IN PAST NONE SINCE HIATAL HERNIA SX.,CARDIOMYOPATHY History of Any Multi-Drug Resistant Organisms: None Reported Past Surgical History: Adenoidectomy, Appendectomy, Bladder Surgery, Cholecystectomy, Hysterectomy, Joint Replacement, Tonsillectomy Additional Past Surgical History / Comment(s): bilateral hip replacments, partial hysterectomy-still has ovaries, sinus sx,niko cataracts-lens implants, hiatal hernia sx Past Anesthesia/Blood Transfusion Reactions: No Reported Reaction Past Psychological History: Depression Smoking Status: Former smoker Past Alcohol Use History: None Reported Past Drug Use History: None Reported - Past Family History Mother Family Medical History: Cancer Additional Family Medical History / Comment(s): colon cancer Father Family Medical History: Congestive Heart Failure (CHF) General Exam Limitations: no limitations General appearance: alert, in no apparent distress Head exam: Present: atraumatic, normocephalic Eye exam: Present: normal appearance, PERRL ENT exam: Present: normal exam Neck exam: Present: normal inspection. Absent: tenderness, meningismus Respiratory exam: Present: normal lung sounds bilaterally. Absent: respiratory distress, wheezes Cardiovascular Exam: Present: regular rate, normal rhythm GI/Abdominal exam: Present: soft. Absent: distended, tenderness Extremities exam: Present: tenderness, joint swelling (Patient had splint applied by orthopedics) Neurological exam: Present: alert, oriented X3. Absent: motor sensory deficit Psychiatric exam: Present: normal affect, normal mood Skin exam: Present: warm, dry, intact. Absent: cyanosis, diaphoretic Course Vital Signs 11/27/17 15:28 Temperature 100.2 F H Pulse Rate 68 Respiratory 20 Rate Blood Pressure 220/109 O2 Sat by Pulse 98 Oximetry Medical Decision Making - Medical Decision Making Case discussed with Shirley Levine from [facility]. Recommend patient be initiated on ceftriaxone and gentamicin. I did add vancomycin for additional gram-positive coverage. CBC, CMP, lactate, blood cultures, and synovial fluid analysis is pending. Synovial fluid was obtained prior to arrival, patient came with these vials. Will send for Gram stain, cell count, culture, and crystals. Studies are pending. Disposition Clinical Impression: Septic arthritis Disposition: ADMITTED IP TO THIS HOSP Condition: Stable Is patient prescribed a controlled substance at d/c from ED?: No Referrals: Lan Wallace MD [Primary Care Provider] - 1-2 days Decision to Admit Reason: Admit from EC Decision Date: 11/27/17 Decision Time: 16:10
[2017-11-27] MEDS ORDERED: NALOXONE 0.4 MG/ML 1 ML VIAL IV PRN (16:12)
[2017-11-27 16:32] LABS: Basophils % (A) 0 %; Eosinophils # (A) 0.1 k/uL (0-0.7); Eosinophils % (A) 1 %; HCT 44.1 % (34.0-46.0); HGB 13.8 gm/dL (11.4-16.0); Lymphocytes # (A) 1.5 k/uL (1.0-4.8); Lymphocytes % (A) 12 %; MCH 27.5 pg (25.0-35.0); MCHC 31.3 g/dL (31.0-37.0); MCV 87.9 fL (80.0-100.0); Mean Platelet Volume 6.6; Monocytes # (A) 0.7 k/uL (0-1.0); Monocytes % (A) 6 %; Neutrophils # (A) 9.4 k/uL (1.3-7.7); Neutrophils % (A) 80 %; Platelet Count 198 k/uL (150-450); RBC 5.02 m/uL (3.80-5.40); RDW 14.1 % (11.5-15.5); WBC 11.8 k/uL (3.8-10.6)
[2017-11-27 16:39] LABS: Partial Thromboplastin Time 24.9 sec (22.0-30.0); Prothrombin Time 10.1 sec (9.0-12.0)
[2017-11-27 16:45] LABS: ALT 24 U/L (9-52); AST 39 U/L (14-36); Alkaline Phosphatase 80 U/L (38-126); Anion Gap 9 mmol/L; Blood Urea Nitrogen 15 mg/dL (7-17); Calcium 9.9 mg/dL (8.4-10.2); Carbon Dioxide 24 mmol/L (22-30); Chloride 102 mmol/L (98-107); Glucose 111 mg/dL (74-99); Potassium 4.6 mmol/L (3.5-5.1); Sodium 135 mmol/L (137-145); Total Bilirubin 1.6 mg/dL (0.2-1.3); Total Protein 7.3 g/dL (6.3-8.2)
[2017-11-27] MEDS ORDERED: LOSARTAN 50 MG TAB PO STA (16:47)
[2017-11-27] MEDS ORDERED: GENTAMICIN 120 MG in SODIUM CHLORIDE 0.9% 100 ML IVPB ONE (17:00)
[2017-11-27 17:14] LABS: Appearance,BF Cloudy; Color,BF Yellow
[2017-11-27 17:15] LABS: Nucleated Cells, Body Fluid 488 /uL; RBC, Body Fluid 2825 /uL
[2017-11-27 17:31] LABS: Mononuclear WBC,Body Fluid 87 %; Polynuclear WBC,Body Fluid 13 %; Total Cells Counted,Body Fluid 100
[2017-11-27] MEDS: METOPROLOL TARTRATE 25 MG TAB PO SCH (21:17)
[2017-11-27] MEDS: ATORVASTATIN 10 MG TAB PO SCH (21:17)
[2017-11-27] MEDS: NORTRIPTYLINE 10 MG CAP PO SCH (21:17)
[2017-11-27] MEDS: MONTELUKAST 10 MG TAB PO SCH (21:17)
[2017-11-27] MEDS: IBUPROFEN 600 MG TAB PO SCH (21:20)
--- NOTE | 2017-11-27 21:31 | P.HPOR ---
History of Present Illness H&P Date: 11/27/17 Chief Complaint: Right wrist pain This is a 77-year-old female who was seen in our office with complaint of acute onset of right wrist redness and swelling. she also reports fever and chills over the past 24 hours. She was seen in the Emergency Department last evening and was discharged to home in a short arm splint and referred to our office for evaluation. Past Medical History Past Medical History: Chest Pain / Angina, CVA/TIA, GERD/Reflux, Hyperlipidemia , Hypertension, Osteoarthritis (OA), Sleep Apnea/CPAP/BIPAP Additional Past Medical History / Comment(s): DDD, DJD, SPINAL STENOSIS, occluded carotid right artery, RLS, seasonal allergies.CPAP USED. HAD GERD IN PAST NONE SINCE HIATAL HERNIA SX.,CARDIOMYOPATHY History of Any Multi-Drug Resistant Organisms: None Reported Past Surgical History: Adenoidectomy, Appendectomy, Bladder Surgery, Cholecystectomy, Hysterectomy, Joint Replacement, Tonsillectomy Additional Past Surgical History / Comment(s): bilateral hip replacments, partial hysterectomy-still has ovaries, sinus sx,niko cataracts-lens implants, hiatal hernia sx Past Anesthesia/Blood Transfusion Reactions: No Reported Reaction Past Psychological History: Depression Additional Psychological History / Comment(s): pt is independant. lives with spouse in 1 level home that has 2 porch steps. no home care services recieved. has a cpap machine. Smoking Status: Former smoker Past Alcohol Use History: None Reported Additional Past Alcohol Use History / Comment(s): started smoking at age 18(1958 ) and quit 2001. smoked 1 ppd. Past Drug Use History: None Reported - Past Family History Mother Family Medical History: Cancer Additional Family Medical History / Comment(s): colon cancer Father Family Medical History: Congestive Heart Failure (CHF) Medications and Allergies Home Medications Medication Instructions Recorded Confirmed Type Atorvastatin [Lipitor] 10 mg PO HS 12/17/16 11/27/17 History Escitalopram [Lexapro] 40 mg PO DAILY 12/17/16 11/27/17 History Famotidine 40 mg PO DAILY 12/17/16 11/27/17 History Montelukast [Singulair] 10 mg PO HS 12/17/16 11/27/17 History Nortriptyline [Pamelor] 20 mg PO HS 12/17/16 11/27/17 History rOPINIRole HCL [Requip] 1 mg PO BID 12/17/16 11/27/17 History Losartan [Cozaar] 100 mg PO DAILY tab 12/18/16 11/27/17 Rx Apixaban [Eliquis] 5 mg PO BID 11/26/17 11/27/17 History Fexofenadine HCl [Anna Allergy] 180 mg PO DAILY 11/26/17 11/27/17 History Ibuprofen 600 mg PO TID #20 tablet 11/26/17 11/27/17 Rx Metoprolol Tartrate [Lopressor] 25 mg PO BID 11/26/17 11/27/17 History Terazosin [Hytrin] 1 mg PO DAILY 11/26/17 11/27/17 History Acetaminophen [Tylenol] 650 mg PO Q6H PRN 11/27/17 11/27/17 History Fluticasone Nasal [place] [Flonase 1 spray EA NOSTRIL DAILY PRN 11/27/17 11/27/17 History Nasal [place]] Allergies Allergy/AdvReac Type Severity Reaction Status Date / Time acetaminophen [From [place]] Allergy Rash/Hives Verified 11/27/17 15:50 hydrocodone [From [place]] Allergy Rash/Hives Verified 11/27/17 15:50 Sulfa (Sulfonamide Allergy Rash/Hives Verified 11/27/17 15:50 Antibiotics) aripiprazole [From Abilify] AdvReac Hallucinati Verified 11/27/17 15:50 ons banana AdvReac Nausea & Verified 11/27/17 15:50 Vomiting & Diarrhea bupropion [From Wellbutrin] AdvReac Hallucinati Verified 11/27/17 15:50 ons codeine AdvReac Nausea & Verified 11/27/17 15:50 Vomiting morphine AdvReac Nausea & Verified 11/27/17 15:50 Vomiting propoxyphene [From [place]] AdvReac Nausea & Verified 11/27/17 15:50 Vomiting Physical Examination This is a pleasant 77-year-old female in mild distress due to pain and anxiety. Exam of the right upper extremity reveals erythema, swelling and increased warmth to the dorsum of the wrist. There is mild swelling noted on the volar surface as well. She has limited range of motion secondary to pain. She has full finger motion without difficulty or pain. There is a ring on the ring finger with some swelling to the finger. I'm unable to remove the ring at this time. Neurovascular status is upper extremity is intact. Results X-rays taken in our office revealed moderate to severe degenerative arthritis about the wrist, particularly to the basal joint. No acute fractures identified. - Labs Labs: Abnormal Lab Results - Last 24 Hours (Table) 11/27/17 11/27/17 Range/Units 15:57 15:57 WBC 11.8 H (3.8-10.6) k/uL Neutrophils # 9.4 H (1.3-7.7) k/uL Sodium 135 L (137-145) mmol/L Glucose 111 H (74-99) mg/dL Total Bilirubin 1.6 H (0.2-1.3) mg/dL AST 39 H (14-36) U/L H & H 11/27/17 Range/Units 15:57 Hgb 13.8 (11.4-16.0) gm/dL Hct 44.1 (34.0-46.0) % Coagulation 11/27/17 Range/Units 15:57 INR 1.0 (<1.2) Result Diagrams: 11/27/17 15:57 11/27/17 15:57 Assessment and Plan (1) Fever and chills Current Visit: Yes Status: Acute Code(s): R50.9 - FEVER, UNSPECIFIED SNOMED Code(s): 114079157 (2) Septic arthritis Current Visit: Yes Status: Acute Code(s): M00.9 - PYOGENIC ARTHRITIS, UNSPECIFIED SNOMED Code(s): 804412088 (3) Joint inflammation of wrist Current Visit: No Status: Acute Code(s): M19.039 - PRIMARY OSTEOARTHRITIS, UNSPECIFIED WRIST SNOMED Code(s): 187092492 Plan: The clinical and x-ray findings are discussed with the patient. The patient was evaluated by Dr. Manriquez as well in the office. The wrist was aspirated using sterile technique. We obtained approximately 3 cc of fairly clear joint fluid which is sent for culture and sensitivity, cell count and crystal identification. It is recommended the patient be admitted due to her fever and chills. She is placed on IV antibiotics and is NPO after midnight for possible I &D of the wrist tomorrow.
[2017-11-28] MEDS: VANCOMYCIN 1,250 MG in SODIUM CHLORIDE 0.9% 250 ML IVPB SCH ×2 (01:46→15:16)
[2017-11-28] MEDS: SODIUM CHLORIDE 0.9% 1,000 ML IV SCH ×2 (05:45→15:16)
[2017-11-28] MEDS ORDERED: GENTAMICIN 100 MG in SODIUM CHLORIDE 0.9% 100 ML IVPB SCH (07:00)
[2017-11-28] MEDS: FAMOTIDINE 20 MG TAB PO SCH (08:33)
[2017-11-28] MEDS: METOPROLOL TARTRATE 25 MG TAB PO SCH ×2 (08:34→20:53)
[2017-11-28] MEDS: IBUPROFEN 600 MG TAB PO SCH ×3 (08:34→20:55)
[2017-11-28] MEDS: LOSARTAN 50 MG TAB PO SCH (08:35)
[2017-11-28] MEDS ORDERED: DOXAZOSIN 1 MG TAB PO SCH (09:00)
--- NOTE | 2017-11-28 12:03 | P.PN ---
Subjective Progress Note Date: 11/28/17 Principal diagnosis: Right wrist pain, possible septic arthritis The patient is a pleasant 77 y/o female who was admitted directly from our office yesterday for a possible septic arthritis of the right wrist. She received a joint aspiration and cortisone injection in the office yesterday then sent over to the emergency department for admission to the hospital. The patient was started on IV antibiotics with a consult to infectious disease. The patient was scheduled for a incision and drainage of the wrist this morning , however this was canceled due to the patient's improvement of wrist pain and fevers overnight. Today, the patient states that she no longer has chills and is feeling much better. She states that she is able to move her thumb which she was not able to do yesterday and feels that her swelling has improved in the wrist/hand. Objective - Vital Signs Vital signs: Vital Signs Temp 98.6 F 11/28/17 08:22 Pulse 67 11/28/17 08:22 Resp 18 11/28/17 08:22 BP 139/70 11/28/17 08:22 Pulse Ox 93 L 11/28/17 08:22 Intake & Output 11/27/17 11/28/17 11/28/17 18:59 06:59 18:59 Weight 68.039 kg Other: Voiding Method Toilet Toilet # Voids 1 - Exam Inspection-visualization demonstrates improved swelling to the dorsal hand and wrist. Skin exam is within normal limits with no deficits, no erythema or signs of infection. Range of motion exam of the upper extremities are within normal limits including elbow, forearm, hand, there is slight stiffness to the wrist joint but it is much improved since yesterday. No joint instability is noted. Neurological exam is normal. There are no sensory deficits. Deep tendon reflexes are within normal limits. Intrinsic size and strength are normal. Circulation of the arm is within normal limits. There is a good radial pulse, good color and warmth in the hand and good cap refill. Palpation reveals no particular tenderness in the radiocarpal joint. - Labs CBC & Chem 7: 11/27/17 15:57 11/27/17 15:57 Labs: Abnormal Lab Results - Last 24 Hours (Table) 11/27/17 11/27/17 Range/Units 15:57 15:57 WBC 11.8 H (3.8-10.6) k/uL Neutrophils # 9.4 H (1.3-7.7) k/uL Sodium 135 L (137-145) mmol/L Glucose 111 H (74-99) mg/dL Total Bilirubin 1.6 H (0.2-1.3) mg/dL AST 39 H (14-36) U/L Microbiology - Last 24 Hours (Table) 11/27/17 16:03 Gram Stain - Preliminary Synovial Fluid Body Fluid Culture - Preliminary Assessment and Plan (1) Wrist pain, right Current Visit: Yes Status: Acute Code(s): M25.531 - PAIN IN RIGHT WRIST SNOMED Code(s): 90816251 (2) Fever and chills Current Visit: Yes Status: Acute Code(s): R50.9 - FEVER, UNSPECIFIED SNOMED Code(s): 318728906 (3) Joint inflammation of wrist Current Visit: No Status: Acute Code(s): M19.039 - PRIMARY OSTEOARTHRITIS, UNSPECIFIED WRIST SNOMED Code(s): 815345617 Plan: The clinical findings were discussed with the patient. The case was also discussed at length with Dr. Manriquez and Dr. Sprague. No surgical intervention is warranted at this time. She may be started on a heart healthy diet. We will continue to follow the patient closely in the hospital until cultures are resulted. Continue antibiotics per infectious disease. Patient may splint wrist as needed for pain. Otherwise the patient was encouraged to perform gentle range of motion of the wrist and hand as tolerated. We will continue to follow the patient closely and make further recommendations as needed.
[2017-11-28] MEDS ORDERED: FLUTICASONE 50MCG/SPRAY NASAL 16GM EA NOSTRIL PRN (15:13)
--- NOTE | 2017-11-28 16:19 | CONS ---
CONSULTATION DATE OF SERVICE: 11/28/2017 REASON FOR CONSULTATION: Advice regarding hypertension and multiple other medical issues requested by Dr. Manriquez. HISTORY OF PRESENT ILLNESS: This 77-year-old woman with a past medical history of GERD, hypertension, hyperlipidemia, DJD, sleep apnea, was admitted by Dr. Manriquez for possible septic arthritis pain. Incision and drainage was planned but the patient underwent IV antibiotics and patient felt much better and the patient being closely monitored at this time. There is no history of fever, rigors or chills. No history of headache, loss of consciousness or seizures. PAST MEDICAL HISTORY: History of CVA, TIA, GERD, hypertension, hyperlipidemia, history of DJD, sleep apnea. MEDICATIONS: Prior to admission include: 1. Flonase 1 spray daily p.r.n. 2. Tylenol 650 q.6h p.r.n. 3. Requip 1 mg p.o. b.i.d. 4. Hytrin 1 mg daily. 5. Pamelor 20 mg q.h.s. 6. Singular 10 mg q.h.s. 7. Lopressor 25 mg p.o. b.i.d. 8. Cozaar 100 mg p.o. daily. 9. Ibuprofen 600 mg t.i.d. 10.Anna 180 mg. 11.Famotidine 40 mg. 12.Lexapro 40 mg. 13.Lipitor 10 mg q.h.s. 14.Eliquis 5 mg p.o. b.i.d. ALLERGIES: NORCO, ANTIBIOTICS, ABILIFY, BANANA, WELLBUTRIN, CODEINE, MORPHINE AND DARVON. FAMILY HISTORY: History of colon cancer in the family. SOCIAL HISTORY: Previous history of smoking. No history of current smoking or alcohol intake. REVIEW OF SYSTEMS: ENT: No diminished vision. No diminished hearing. CARDIOVASCULAR: No angina. No palpitations. RESPIRATORY: As mentioned earlier. GI: As mentioned earlier. no dysuria or hematuria. NERVOUS SYSTEM: No numbness or weakness. ALLERGY/IMMUNOLOGY: No asthma or hayfever. MUSCULOSKELETAL: As mentioned earlier. HEMATOLOGY/ONCOLOGY: No history of anemia. ENDOCRINE: No history of diabetes or hypothyroidism. CONSTITUTIONAL: As mentioned earlier. DERMATOLOGY: Negative. RHEUMATOLOGY: Negative. PSYCHIATRY: As mentioned earlier. PHYSICAL EXAMINATION: GENERAL: The patient is alert oriented tomes three. VITAL SIGNS: Pulse 67, blood pressure 139/72, respiration 18, temp 98.6, pulse ox 93% on room air. HEENT: Conjunctivae normal. Oral mucosa moist. NECK is no jugular venous distention. No carotid bruit. No lymph node enlargement. CARDIOVASCULAR SYSTEMS: S1, S2 muffled. RESPIRATION: Breath sounds diminished in the bases. No rhonchi. No crackles. ABDOMEN: Soft, nontender. LEGS: No edema. No swelling. EXTREMITIES: Examination of the right hand some minimal pain and swelling much improved. LABS: WBC 11.8, sodium 135. ASSESSMENT: 1. Right wrist pain. Possibly septic arthritis. 2. History of cerebrovascular accident, transient ischemic attack. 3. Gastroesophageal reflux disease. 4. Hypertension. 5. Hyperlipidemia. 6. History of degenerative joint disease. 7. Sleep apnea. 8. History of spinal stenosis. 9. Depression. RECOMMENDATIONS AND DISCUSSION: In this 77-year-old woman who presented with multiple medical problems. We will monitor the patient closely. Recommend to continue IV antibiotics and also I would recommend check a serum uric acid also. Otherwise, recommend to continue the rest of the medications. We will follow the patient with you. Thank you Dr. Manriquez for letting us participate in the care of this patient. MMODL / IJN: [id number] /
[2017-11-28] MEDS: cefTRIAXone 2,000 MG in SODIUM CHLORIDE 0.9% 100 ML IVPB SCH (18:18)
--- NOTE | 2017-11-28 20:37 | CONS ---
CONSULTATION DATE OF SERVICE: 11/28/2017. REASON FOR CONSULTATION: Right wrist pain, question septic arthritis. HISTORY OF PRESENT ILLNESS: The patient is a 77-year-old female, who woke up Friday morning with pain into the right wrist area that seemed to have more of a sudden onset, no history of any trauma. Pain to the wrist area was mostly throbbing 7 to 8 out of 10, and no radiation. Surrounding swelling and minimal redness. 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 calcification may reflect . The patient was advised she did have a inflammatory arthritis, was advised to follow up with her orthopedic doctor Dr. Manriqeuz. The patient was evaluated by Dr. Manriquez yesterday in the office where the patient did have aspirate of the right wrist area which was slightly cloudy. She did have injection of steroid and subsequently has been directed to go to the hospital to be admitted for rule out a septic arthritis and wash out of all of the right wrist. The patient has been started on gentamicin, vancomycin. Infectious Disease was consulted for further recommendations regarding antibiotic therapy. The patient on arrival to the hospital yesterday did have a fever of 101.5 degrees Fahrenheit. She is afebrile as of this morning. Yesterday the patient did have white count of 11.8. The synovial fluid is yellow, cloudy, however, the white count is 488, RBC was 2825. The synovial fluid culture was not diagnostic. Infectious Disease was consulted to rule out and septic arthritis or need for debridement. REVIEW OF SYSTEMS: CONSTITUTIONAL: Positive for weakness along with the fever. EYES no complaint. ENT no complaint. RESPIRATORY no complaint. CARDIOVASCULAR no complaint. GENITOURINARY no complaint. GASTROINTESTINAL: No complaint. MUSCULOSKELETAL as per HPI. INTEGUMENTARY as per HPI. PSYCHOLOGICAL no complaint. ENDOCRINE no complaint. NEUROLOGIC no complaint. PAST MEDICAL HISTORY: Hypertension, hyperlipidemia, gastroesophageal reflux disease, CVA, TIA, osteoarthritis, sleep apnea, degenerative joint disease. PAST SURGICAL HISTORY: Adenoidectomy, appendectomy, bladder surgery, cholecystectomy, hysterectomy, tonsillectomy, bilateral hip replacement. SOCIAL HISTORY: Remote history of smoking. Quit back in 2001. Denies drinking or drug use. FAMILY HISTORY: Mother with history of colon cancer. Father history of congestive heart failure. ALLERGIES: TYLENOL, HYDROCODONE, CODEINE, MORPHINE. MEDICATION: Currently include the patient is on Lipitor, Cardura, Lexapro, Pepcid, Motrin, Claritin, Cozaar, Lopressor, Singulair, Narcan, Pamelor, Requip, vancomycin, pharmacy to dose and gentamicin. EXAMINATION: Blood pressure 156/75 with a pulse of 94, temperature 99. She is 97% on room air. General description is an elderly female up in the bed in no distress. No tachypnea or accessory muscles of respiration use. HEENT: Shows no pallor or scleral icterus. Oral mucosa membranes are dry. No pharyngeal erythema or thrush. Neck: Trachea central. No thyromegaly. LUNGS: Unlabored breathing. Clear to auscultation anteriorly. No wheeze or crackles. Heart S1, S2. Regular rate and rhythm. ABDOMEN: Soft. No tenderness. No guarding or rigidity. EXTREMITIES: No edema of the feet. Examination of the right wrist currently with the minimal swelling. There is no redness. She did have movement of the wrist but no significant painful. No fluctuation, induration or any skin breakdown. NEUROLOGICAL: Patient is awake, alert, oriented x3. Mood and affect normal. LABS: Hemoglobin 13.8, white count 11.8 with a BUN of 15, creatinine 0.66. Synovial fluid was cloudy. RBC 2825, white count 148, gram stain has been negative. Cultures currently pending. DIAGNOSTIC IMPRESSION AND PLAN: Patient admitted to the hospital with significant pain to the right wrist area which has been of two days duration. No history of any trauma. The patient has been running any fever. The patient is status post aspirate of the right wrist. However, the white count not significantly elevated and the Gram stain is negative will make it to be less likely a septic arthritis, more likely inflammatory arthritis. PLAN: 1. We will keep the patient on vancomycin however add Rocephin to cover for gram negative. Discontinue the gentamicin to decrease risk of nephrotoxicity. 2. However, if the cultures remain to be negative, that will rule out septic arthritis. Antibiotic can be safely discontinued. The patient may be treated with tapering course of steroids. 3. We will follow up on clinical condition and further adjust medication if needed. Thank you for this consultation. We will follow the patient along with you. DARRIAN / RAGHU: [id number] /
[2017-11-28] MEDS: DOXAZOSIN 1 MG TAB PO SCH (20:53)
[2017-11-28] MEDS: MONTELUKAST 10 MG TAB PO SCH (20:53)
[2017-11-28] MEDS: ATORVASTATIN 10 MG TAB PO SCH (20:53)
[2017-11-28] MEDS: NORTRIPTYLINE 10 MG CAP PO SCH (22:39)
[2017-11-29] MEDS: VANCOMYCIN 1,250 MG in SODIUM CHLORIDE 0.9% 250 ML IVPB SCH ×2 (02:06→14:24)
[2017-11-29 07:53] LABS: Anion Gap 4 mmol/L; Blood Urea Nitrogen 15 mg/dL (7-17); Calcium 9.5 mg/dL (8.4-10.2); Carbon Dioxide 26 mmol/L (22-30); Chloride 110 mmol/L (98-107); Glucose 98 mg/dL (74-99); Potassium 4.1 mmol/L (3.5-5.1); Sodium 140 mmol/L (137-145)
[2017-11-29] MEDS: METOPROLOL TARTRATE 25 MG TAB PO SCH ×2 (08:47→22:08)
[2017-11-29] MEDS: SODIUM CHLORIDE 0.9% 1,000 ML IV SCH ×2 (08:47→22:13)
[2017-11-29] MEDS: cefTRIAXone 2,000 MG in SODIUM CHLORIDE 0.9% 100 ML IVPB SCH (08:47)
[2017-11-29] MEDS: IBUPROFEN 600 MG TAB PO SCH (08:48)
[2017-11-29] MEDS: FAMOTIDINE 20 MG TAB PO SCH (08:48)
[2017-11-29] MEDS: LORATADINE 10 MG TAB PO SCH (08:48)
[2017-11-29] MEDS: ESCITALOPRAM 20 MG TAB PO SCH (08:48)
[2017-11-29] MEDS: LOSARTAN 50 MG TAB PO SCH (08:48)
--- NOTE | 2017-11-29 10:00 | P.PN ---
Subjective Progress Note Date: 11/29/17 Principal diagnosis: Right wrist pain The patient is a pleasant 77 y/o female who was admitted directly from our office for a possible septic arthritis of the right wrist. She received a joint aspiration and cortisone injection in the office then sent over to the emergency department for admission to the hospital. The patient was started on IV antibiotics with a consult to infectious disease. The patient was scheduled for a incision and drainage of the wrist Friday, however this was canceled due to the patient's improvement of wrist pain and fevers overnight. Today, the patient states that she no longer has chills and is feeling much better. She states that she is able to move her thumb which she was not able to do yesterday and feels that her swelling has improved in the wrist/hand. Objective - Vital Signs Vital signs: Vital Signs Temp 98.0 F 11/29/17 07:15 Pulse 65 11/29/17 07:15 Resp 16 11/29/17 07:15 BP 171/92 11/29/17 07:15 Pulse Ox 97 11/29/17 07:15 Intake & Output 11/28/17 11/29/17 11/29/17 18:59 06:59 18:59 Intake Total 1812 600 Balance 1812 600 Intake: Intake, IV Titration 952 600 Amount Gentamicin 100 mg In 102 Sodium Chloride 0.9% 100 ml @ 102.5 mls/hr IVPB Q12H SENG Rx#:[id number] Sodium Chloride 0.9% 1, 500 000 ml @ 75 mls/hr IV . [id number] SENG Rx#:[id number] Vancomycin 1,250 mg In 250 Sodium Chloride 0.9% 250 ml @ 125 mls/hr IVPB Q12H SENG Rx#:[id number] cefTRIAXone 2,000 mg In 100 600 Sodium Chloride 0.9% 100 ml @ 100 mls/hr IVPB Q24HR SENG Rx#:[id number] Oral 860 Other: Voiding Method Toilet # Voids 1 - Exam Inspection-visualization demonstrates improved swelling to the dorsal hand and wrist. Skin exam is within normal limits with no deficits, no erythema or signs of infection. Range of motion exam of the upper extremities are within normal limits including elbow, forearm, hand, there is slight stiffness to the wrist joint but it is much improved since admission. No joint instability is noted. Neurological exam is normal. There are no sensory deficits. Deep tendon reflexes are within normal limits. Intrinsic size and strength are normal. Circulation of the arm is within normal limits. There is 2+ radial pulse and less than 2 sec cap refill. Palpation reveals no particular tenderness in the radiocarpal joint and not hot to touch - Constitutional General appearance: Present: no acute distress - Labs CBC & Chem 7: 11/27/17 15:57 11/29/17 06:19 Labs: Abnormal Lab Results - Last 24 Hours (Table) 11/29/17 Range/Units 06:19 Chloride 110 H (98-107) mmol/L Microbiology - Last 24 Hours (Table) 11/27/17 15:57 Blood Culture - Preliminary Blood No Growth after 24 hours 11/27/17 16:03 Gram Stain - Preliminary Synovial Fluid Body Fluid Culture - Preliminary Assessment and Plan (1) Wrist pain, right Narrative/Plan: Her wrist pain continues to improve. The swelling is resolving and there is minimal erythema. She has nearly painless active ROM at the wrist today. Microbiology has been negative thus far and she is afebrile. Will continue to monitor and expect D/C once final cultures are resulted should they be negative. Continue current regimen Current Visit: Yes Status: Acute Code(s): M25.531 - PAIN IN RIGHT WRIST SNOMED Code(s): 58739901 (2) Joint inflammation of wrist Current Visit: No Status: Acute Code(s): M19.039 - PRIMARY OSTEOARTHRITIS, UNSPECIFIED WRIST SNOMED Code(s): 737771318 Time with Patient: Less than 30
--- NOTE | 2017-11-29 15:17 | PN ---
PROGRESS NOTE DATE OF SERVICE: 11/29/2017 This 77-year-old woman was admitted with right wrist pain, is on empiric antibiotics. No chest pain. No palpitations. No fever. The patient is followed by Infectious Disease and Orthopedic surgery. EXAM: Alert and oriented x3. Pulse 65. Blood pressure 171/92, respirations 16, temperature 98 degrees, pulse ox 97% on room air. HEENT: Conjunctivae normal. Oral mucosa moist. Neck is no jugular venous distention. No carotid bruit. No lymph node enlargement. Cardiovascular system: S1, S2 muffled. Respiratory: Breath sounds diminished in the bases. No rhonchi. No crackles. Abdomen is soft, nontender. Legs are no edema. No swelling. Nervous system: No focal deficits. The right wrist swelling is improving at this time. ASSESSMENT: 1. Right wrist pain, possible septic arthritis on IV antibiotics status post aspiration. 2. History of cerebrovascular accident, transient ischemic attack. 3. Hypertension. 4. Gastroesophageal reflux disease. 5. Hyperlipidemia. 6. History of degenerative joint disease. 7. Sleep apnea. 8. History of spinal stenosis. 9. Depression. RECOMMENDATIONS AND DISCUSSION: Recommend to continue current medications, management and symptomatic treatment. Otherwise p.r.n. medications. Follow the cultures. Closely follow with Infectious Disease. Further recommendations to follow. MMODL / IJN: [id number] /
[2017-11-29] MEDS: hydrALAZINE HCL 20 MG/ML 1 ML VIAL IVP PRN (16:47)
[2017-11-29] MEDS ORDERED: PSYLLIUM HUSK 100% 6 GM PACKET PO SCH (22:00)
[2017-11-29] MEDS: MONTELUKAST 10 MG TAB PO SCH (22:08)
[2017-11-29] MEDS: APIXABAN 5 MG TAB PO SCH (22:08)
[2017-11-29] MEDS: NORTRIPTYLINE 10 MG CAP PO SCH (22:09)
[2017-11-29] MEDS: ATORVASTATIN 10 MG TAB PO SCH (22:09)
[2017-11-29] MEDS: DOXAZOSIN 1 MG TAB PO SCH (22:09)
[2017-11-30] MEDS ORDERED: VANCOMYCIN TROUGH DUE 1 EACH MISC MISCELLANE ONE (01:00)
[2017-11-30] MEDS ORDERED: VANCOMYCIN 1,000 MG in SODIUM CHLORIDE 0.9% 250 ML IVPB STA (02:04)
[2017-11-30] MEDS: VANCOMYCIN 1,250 MG in SODIUM CHLORIDE 0.9% 250 ML IVPB SCH (02:33)
[2017-11-30 07:44] LABS: Anion Gap 10 mmol/L; Blood Urea Nitrogen 13 mg/dL (7-17); Calcium 10.2 mg/dL (8.4-10.2); Carbon Dioxide 26 mmol/L (22-30); Chloride 106 mmol/L (98-107); Glucose 99 mg/dL (74-99); Potassium 4.2 mmol/L (3.5-5.1); Sodium 142 mmol/L (137-145)
[2017-11-30] MEDS: LORATADINE 10 MG TAB PO SCH (08:07)
[2017-11-30] MEDS: cefTRIAXone 2,000 MG in SODIUM CHLORIDE 0.9% 100 ML IVPB SCH (08:07)
[2017-11-30] MEDS: APIXABAN 5 MG TAB PO SCH ×2 (08:07→20:14)
[2017-11-30] MEDS: METOPROLOL TARTRATE 25 MG TAB PO SCH ×2 (08:07→20:15)
[2017-11-30] MEDS: LOSARTAN 50 MG TAB PO SCH (08:07)
[2017-11-30] MEDS: FAMOTIDINE 20 MG TAB PO SCH (09:53)
[2017-11-30] MEDS: ESCITALOPRAM 20 MG TAB PO SCH (09:53)
[2017-11-30] MEDS: hydrALAZINE HCL 20 MG/ML 1 ML VIAL IVP PRN (09:53)
--- NOTE | 2017-11-30 10:17 | P.PN ---
Subjective Progress Note Date: 11/30/17 Principal diagnosis: Right wrist pain She continues to improve and minimal symptoms at the right wrist. No new complaints. PHX: The patient is a pleasant 77 y/o female who was admitted directly from our office for a possible septic arthritis of the right wrist. She received a joint aspiration and cortisone injection in the office then sent over to the emergency department for admission to the hospital. The patient was started on IV antibiotics with a consult to infectious disease. The patient was scheduled for a incision and drainage of the wrist Friday, however this was canceled due to the patient's improvement of wrist pain and fevers overnight. Today, the patient states that she no longer has chills and is feeling much better. She states that she is able to move her thumb which she was not able to do yesterday and feels that her swelling has improved in the wrist/hand. Objective - Vital Signs Vital signs: Vital Signs Temp 98.1 F 11/30/17 07:00 Pulse 80 11/30/17 09:50 Resp 18 11/30/17 07:00 BP 161/80 11/30/17 09:50 Pulse Ox 95 11/30/17 07:00 Intake & Output 11/29/17 11/30/17 11/30/17 18:59 06:59 18:59 Intake Total 490 Balance 490 Intake: Intake, IV Titration 250 Amount Vancomycin 1,000 mg In 250 Sodium Chloride 0.9% 250 ml @ 125 mls/hr IVPB Q12H STA Rx#:[id number] Oral 240 Other: # Voids 2 1 - Exam Inspection-visualization demonstrates minimal to no swelling to the dorsal hand and wrist. Skin exam is within normal limits with no deficits, no erythema or signs of infection. Range of motion exam of the upper extremities are within normal limits including elbow, forearm, hand, there is slight stiffness to the wrist joint but it is much improved since admission. No joint instability is noted. Neurological exam is normal. There are no sensory deficits. Deep tendon reflexes are within normal limits. Intrinsic size and strength are normal. Circulation of the arm is within normal limits. There is 2+ radial pulse and less than 2 sec cap refill. Palpation reveals no particular tenderness in the radiocarpal joint and not hot to touch - Constitutional General appearance: Present: no acute distress - Labs CBC & Chem 7: 11/27/17 15:57 11/30/17 06:10 Labs: Microbiology - Last 24 Hours (Table) 11/27/17 16:03 Gram Stain - Preliminary Synovial Fluid Body Fluid Culture - Preliminary 11/27/17 15:57 Blood Culture - Preliminary Blood No Growth after 48 hours Assessment and Plan (1) Wrist pain, right Narrative/Plan: Her wrist pain continues to improve. The swelling is resolved and there is no erythema. She has nearly painless active ROM at the wrist today. Microbiology has been negative thus far and she is afebrile. She can D/C if ok with ID/IM Current Visit: Yes Status: Acute Code(s): M25.531 - PAIN IN RIGHT WRIST SNOMED Code(s): 07266553 (2) Joint inflammation of wrist Current Visit: No Status: Acute Code(s): M19.039 - PRIMARY OSTEOARTHRITIS, UNSPECIFIED WRIST SNOMED Code(s): 326784595
[2017-11-30] MEDS: SODIUM CHLORIDE 0.9% 1,000 ML IV SCH (12:11)
[2017-11-30] MEDS: VANCOMYCIN 1,000 MG in SODIUM CHLORIDE 0.9% 250 ML IVPB SCH (13:50)
[2017-11-30 15:28] VITALS: RESP 16
[2017-11-30] MEDS ORDERED: ACETAMINOPHEN TAB 325 MG TAB PO PRN (16:40)
[2017-11-30] MEDS: DOXAZOSIN 1 MG TAB PO SCH (20:14)
[2017-11-30] MEDS: ATORVASTATIN 10 MG TAB PO SCH (20:14)
[2017-11-30] MEDS: MONTELUKAST 10 MG TAB PO SCH (20:14)
[2017-11-30] MEDS: NORTRIPTYLINE 10 MG CAP PO SCH (20:14)
--- NOTE | 2017-11-30 20:42 | PN ---
PROGRESS NOTE DATE OF SERVICE: 11/30/2017 This 77-year-old woman was admitted to the right wrist pain, on empiric antibiotics for septic arthritis. The patient had thoracentesis and final cultures are pending at this time. No chest pain. No palpitations. No fever. The patient is on IV Rocephin. EXAM: Alert and oriented x3. Pulse 68, blood pressure 144/67, respirations 16, temperature 98.2, pulse ox 98% on room air. HEENT: Conjunctivae normal. Oral mucosa moist. Neck is no jugular venous distention. No carotid bruit. No lymph node enlargement. CARDIOVASCULAR: S1, S2. RESPIRATORY: Breath sounds diminished in the bases. No rhonchi, no crackles. ABDOMEN: Soft, nontender. LEGS: No edema. NERVOUS SYSTEM: Right wrist is much improved. LAB INVESTIGATIONS: At this time shows WBC 6, sodium is 142. ASSESSMENT: 1. Right wrist pain, possible septic arthritis on IV antibiotics status post aspiration. 2. History of cerebrovascular accident, transient ischemic attack. 3. Hypertension. 4. Gastroesophageal reflux disease. 5. Hyperlipidemia. 6. History of degenerative joint disease. 7. History of sleep apnea. 8. History of spinal stenosis. 9. History of depression. RECOMMENDATIONS AND DISCUSSION I recommend to continue the current management and continue symptomatic treatment. Continue the antibiotics. Closely follow with Infectious Disease. Await final cultures. Guarded prognosis. Further recommendations to follow. MMODL / IJN: [id number] /
[2017-11-30] MEDS ORDERED: PSYLLIUM HUSK 100% 6 GM PACKET PO SCH (21:00)
--- NOTE | 2017-11-30 22:54 | PN ---
PROGRESS NOTE DATE OF SERVICE: 11/30/2017. REASON FOR FOLLOWUP: Right wrist pain and question of possible septic arthritis. INTERVAL HISTORY: The patient is currently afebrile. The patient's right wrist pain has resolved. She is able to move the wrist joint without any pain. Denies any chest pain, shortness of breath, or cough. No abdominal pain. No diarrhea. EXAMINATION: Blood pressure 144/67 with a pulse of 68, temperature 98.2, she is 98% on room air. GENERAL DESCRIPTION: An elderly female up in the chair in no distress. RESPIRATORY: Unlabored breathing. Clear to auscultation anteriorly. HEART: S1, S2. Regular rate and rhythm. EXTREMITIES: Right knee is currently with no swelling, no redness or tenderness. LABS: BUN of 13, creatinine 0.69. The right wrist aspirate culture has been negative so far. Blood culture negative. DIAGNOSTIC IMPRESSION AND PLAN: Patient with right wrist pain, more likely due to inflammatory arthritis. Clinically doubt septic arthritis. Antibiotic can be safely discontinued. May give a short course of tapering steroids. Close outpatient followup. Continue supportive care. MMODL / IJN: [id number] /
[2017-12-01] MEDS: SODIUM CHLORIDE 0.9% 1,000 ML IV SCH ×2 (01:38→07:28)
[2017-12-01] MEDS: VANCOMYCIN 1,000 MG in SODIUM CHLORIDE 0.9% 250 ML IVPB SCH (01:54)
[2017-12-01] MEDS: LORATADINE 10 MG TAB PO SCH (07:27)
[2017-12-01] MEDS: APIXABAN 5 MG TAB PO SCH (07:27)
[2017-12-01] MEDS: LOSARTAN 50 MG TAB PO SCH (07:27)
[2017-12-01] MEDS: ESCITALOPRAM 20 MG TAB PO SCH (07:28)
[2017-12-01] MEDS: FAMOTIDINE 20 MG TAB PO SCH (07:28)
[2017-12-01] MEDS: METOPROLOL TARTRATE 25 MG TAB PO SCH (07:28)
[2017-12-01 07:29] VITALS: BP 185/87; PULSE 77; TEMP 97.6
[2017-12-01] MEDS: cefTRIAXone 2,000 MG in SODIUM CHLORIDE 0.9% 100 ML IVPB SCH (09:02)
[2017-12-01 09:53] LABS: Anion Gap 8 mmol/L; Blood Urea Nitrogen 14 mg/dL (7-17); Carbon Dioxide 25 mmol/L (22-30); Chloride 108 mmol/L (98-107); Glucose 86 mg/dL (74-99); Potassium 4.1 mmol/L (3.5-5.1); Sodium 141 mmol/L (137-145)
--- NOTE | 2017-12-01 12:44 | P.DS ---
Providers Date of admission: 11/27/17 16:13 Expected date of discharge: 12/01/17 Attending physician: Remy Manriquez Consults: 11/28/17 07:27 Consult Physician Routine Consulting Provider: Lan Wallace Consult Reason/Comments: medical management Do you want consulting provider notified?: Yes 11/28/17 09:14 Consult Physician Routine Consulting Provider: Wilson Jauregui Consult Reason/Comments: medical management Do you want consulting provider notified?: Yes 11/28/17 11:25 Consult Physician Routine Consulting Provider: Yin Sprague Consult Reason/Comments: infected right wrist Do you want consulting provider notified?: Already Contacted Primary care physician: Lan Wallace - Discharge Diagnosis(es) (1) Fever and chills Current Visit: Yes Status: Acute (2) Septic arthritis Current Visit: Yes Status: Acute (3) Joint inflammation of wrist Current Visit: No Status: Acute Hospital Course: This is a 77-year-old female admitted to [facility] on 2017 with possible septic arthritis of the right wrist. Fluid was taken in the office and sent for culture, cell count increased identification. Culture is no growth at 72 hours. No organisms seen on Gram stain. No crystals noted. The patient's pain is significantly improved after cortisone injection and IV antibiotics. She is cleared by infectious disease to be discharged to home today. She rates her pain 0/10 today. Please see med rec for accurate list of home medications. Patient Condition at Discharge: Stable Plan - Discharge Summary Discharge Rx Participant: No New Discharge Prescriptions: No Action Montelukast [Singulair] 10 mg PO HS Famotidine 40 mg PO DAILY rOPINIRole HCL [Requip] 1 mg PO BID Nortriptyline [Pamelor] 20 mg PO HS Escitalopram [Lexapro] 40 mg PO DAILY Atorvastatin [Lipitor] 10 mg PO HS Losartan [Cozaar] 100 mg PO DAILY tab Terazosin [Hytrin] 1 mg PO HS Metoprolol Tartrate [Lopressor] 25 mg PO BID Fexofenadine HCl [Anna Allergy] 180 mg PO DAILY Apixaban [Eliquis] 5 mg PO BID Ibuprofen 600 mg PO TID #20 tablet Acetaminophen [Tylenol] 650 mg PO Q6H PRN PRN Reason: Pain Or Fever > 100.5 Fluticasone Nasal [place] [Flonase Nasal [place]] 1 spray EA NOSTRIL DAILY PRN PRN Reason: Allergy Symptoms Discharge Medication List Atorvastatin [Lipitor] 10 mg PO HS 12/17/16 [History] Escitalopram [Lexapro] 40 mg PO DAILY 12/17/16 [History] Famotidine 40 mg PO DAILY 12/17/16 [History] Montelukast [Singulair] 10 mg PO HS 12/17/16 [History] Nortriptyline [Pamelor] 20 mg PO HS 12/17/16 [History] rOPINIRole HCL [Requip] 1 mg PO BID 12/17/16 [History] Losartan [Cozaar] 100 mg PO DAILY tab 12/18/16 [Rx] Apixaban [Eliquis] 5 mg PO BID 11/26/17 [History] Fexofenadine HCl [Anna Allergy] 180 mg PO DAILY 11/26/17 [History] Ibuprofen 600 mg PO TID #20 tablet 11/26/17 [Rx] Metoprolol Tartrate [Lopressor] 25 mg PO BID 11/26/17 [History] Terazosin [Hytrin] 1 mg PO HS 11/26/17 [History] Acetaminophen [Tylenol] 650 mg PO Q6H PRN 11/27/17 [History] Fluticasone Nasal [place] [Flonase Nasal [place]] 1 spray EA NOSTRIL DAILY PRN 11/27 [History] Follow up Appointment(s)/Referral(s): Lan Wallace MD [Primary Care Provider] - 12/03/17 11:00 am Remy Manriquez MD [STAFF PHYSICIAN] - 12/08/17 1:00 pm Yin Sprague MD [STAFF PHYSICIAN] - 12/08/17 2:30 pm (At [facility] [address]) Discharge Disposition: HOME SELF-CARE
--- NOTE | 2017-12-01 15:28 | PN ---
PROGRESS NOTE DATE OF SERVICE: 12/01/2017 REASON FOR FOLLOWUP: Right knee pain, question of septic arthritis. INTERVAL HISTORY: The patient is seen on rounds this morning. The patient has been feeling better. Breathing comfortably. Denies having any pain to the right shoulder area, right wrist area. Denies having any chest pain, shortness of breath, cough, no abdominal pain, or any diarrhea. PHYSICAL EXAMINATION: Blood pressure is 185/87, pulse of 71, temperature is 97.6. She is 96% on room air. General description is an elderly female, up in the bed in no distress. RESPIRATORY SYSTEM: Unlabored breathing, clear to auscultation anteriorly. HEART: S1, S2. Regular rate and rhythm. Right wrist currently with no swelling, no redness, no drainage. LABS: Culture has been negative. DIAGNOSTIC IMPRESSION AND PLAN: Patient with right wrist pain, more likely inflammatory arthritis. Clinically doubt infection with colitis. Plan at this time is to give her short-acting course of oral steroid. There is no need for any antibiotic on discharge. Plans were discussed in detail with the nurse taking care of the patient. All her questions were answered. MMODL / IJN: [id number] /
[2017-12-02] MEDS ORDERED: VANCOMYCIN TROUGH DUE 1 EACH MISC MISCELLANE ONE (01:00)
--- NOTE | 2017-12-04 11:19 | CDI ---
Documentation Clarification Form Date: 12/04/2017 10:48:00 AM From: Juliana Carias Phone: If questions, call [employer] Tender- Uma Taylor at [phone] Admit Date: 11/27/2017 4:13:00 PM Patient Name: Lizzie East Visit Number: [id number] Discharge Date: 12/01/17 ATTENTION: The Clinical Documentation Specialists (CDI) and [facility] Coding Staff appreciate your assistance in clarifying documentation. Please respond to the clarification below the line at the bottom and electronically sign. The CDI & [facility] Coding staff will review the response and follow-up if needed. Please note: Queries are made part of the Legal Health Record. If you have any questions, please contact the author of this message via ITS. Remy Grant MD Cardiomyopathy is documented in your H&P in Past medical history Risk Factors: Hypertension Treatment: Patient's home meds include Lipitor, Cozaar, Lopressor, and Elequis In your professional opinion, can you please clarify the type of cardiomyopathy and underlying cause if known Congenital Dilated Hypertrophic Ischemic Hypertensive Other, please specify Unable to determine MTDD
== END 2017-12-01 13:45 | disposition home or self-care (01) | DRG 549 ==
LOC: EC 15:24 → 4SSUR 16:13
PROVIDERS: ADMIT Orthopaedic Surgery; ATTEND Orthopaedic Surgery
PROC: 0R9N3ZX Drainage of Right Wrist Joint, Percutaneous Approach, Diagnostic (ICD-10-PCS; principal; 2017-11-27)
DX: M00.9 Pyogenic arthritis, unspecified (principal); I42.9 Cardiomyopathy, unspecified; E78.5 Hyperlipidemia, unspecified; F32.9 Major depressive disorder, single episode, unspecified; M19.031 Primary osteoarthritis, right wrist; I10 Essential (primary) hypertension; J30.2 Other seasonal allergic rhinitis; G25.81 Restless legs syndrome; K21.9 Gastro-esophageal reflux disease without esophagitis; M48.00 Spinal stenosis, site unspecified; G47.30 Sleep apnea, unspecified; Z79.01 Long term (current) use of anticoagulants; Z79.899 Other long term (current) drug therapy; Z80.0 Family history of malignant neoplasm of digestive organs; Z82.49 Family history of ischemic heart disease and other diseases of the circulatory system; Z86.73 Personal history of transient ischemic attack (TIA), and cerebral infarction without residual deficits; Z90.710 Acquired absence of both cervix and uterus; Z87.891 Personal history of nicotine dependence; Z96.1 Presence of intraocular lens; Z96.643 Presence of artificial hip joint, bilateral; Z79.51 Long term (current) use of inhaled steroids; Z88.6 Allergy status to analgesic agent; Z88.5 Allergy status to narcotic agent; Z88.2 Allergy status to sulfonamides; Z88.8 Allergy status to other drugs, medicaments and biological substances; Z91.018 Allergy to other foods
CPT/HCPCS: 36415; 80048; 80053; 80202; 83605; 84550; 85025; 85610; 85730; 87040; 87070; 87205; 89050; 89060; 96365; 99284

== ENCOUNTER 2018-04-16 12:43 | Inpatient (IN) | payer MEDICARE, BC ==
[2018-04-16] MEDS ORDERED: DILTIAZEM DRIP BOLUS FROM BAG 1 MG SOLN IV ONE (12:50)
[2018-04-16] MEDS ORDERED: SODIUM CHLORIDE 0.9% 500 ML 500 ML IV STA (12:51)
[2018-04-16] MEDS ORDERED: METOPROLOL TARTRATE 5 MG/5 ML VIAL IVP STA (12:55)
--- NOTE | 2018-04-16 13:12 | ED ---
General Adult HPI - General Stated complaint: heart palpitations Time Seen by Provider: 04/16/18 12:51 Source: patient, RN notes reviewed, old records reviewed - History of Present Illness Initial comments: 78-year-old female presents with lightheadedness, palpitations. Patient called EMS for which she felt was likely anxiety, found to be in SVT versus A. fib with RVR. She was given adenosine by EMS prior to arrival. This did not result in conversion into sinus rhythm. She had mild hypotension in route systolic blood pressure in the 90s. Denied chest pain, no pain complaints. She has had cough and URI symptoms over the past 2 days. Denies fever or chills. Denies abdominal pain nausea or vomiting. Does report decreased appetite. - Related Data Home Medications Medication Instructions Recorded Confirmed Atorvastatin [Lipitor] 10 mg PO HS 12/17/16 11/27/17 Escitalopram [Lexapro] 40 mg PO DAILY 12/17/16 11/27/17 Famotidine 40 mg PO DAILY 12/17/16 11/27/17 Montelukast [Singulair] 10 mg PO HS 12/17/16 11/27/17 Nortriptyline [Pamelor] 20 mg PO HS 12/17/16 11/27/17 rOPINIRole HCL [Requip] 1 mg PO BID 12/17/16 11/27/17 Apixaban [Eliquis] 5 mg PO BID 11/26/17 11/27/17 Fexofenadine HCl [Anna Allergy] 180 mg PO DAILY 11/26/17 11/27/17 Metoprolol Tartrate [Lopressor] 25 mg PO BID 11/26/17 11/27/17 Terazosin [Hytrin] 1 mg PO HS 11/26/17 11/28/17 Acetaminophen [Tylenol] 650 mg PO Q6H PRN 11/27/17 11/27/17 Fluticasone Nasal Merlin [Flonase 1 spray EA NOSTRIL DAILY PRN 11/27/17 11/27/17 Nasal Merlin] Previous Rx's Medication Instructions Recorded Losartan [Cozaar] 100 mg PO DAILY tab 12/18/16 Ibuprofen 600 mg PO TID #20 tablet 11/26/17 Allergies Allergy/AdvReac Type Severity Reaction Status Date / Time acetaminophen [From [place]] Allergy Rash/Hives Verified 11/27/17 15:50 hydrocodone [From [place]] Allergy Rash/Hives Verified 11/27/17 15:50 Sulfa (Sulfonamide Allergy Rash/Hives Verified 11/27/17 15:50 Antibiotics) aripiprazole [From Abilify] AdvReac Hallucinati Verified 11/27/17 15:50 ons banana AdvReac Nausea & Verified 11/27/17 15:50 Vomiting & Diarrhea bupropion [From Wellbutrin] AdvReac Hallucinati Verified 11/27/17 15:50 ons codeine AdvReac Nausea & Verified 11/27/17 15:50 Vomiting morphine AdvReac Nausea & Verified 11/27/17 15:50 Vomiting propoxyphene [From [place]] AdvReac Nausea & Verified 11/27/17 15:50 Vomiting Review of Systems ROS Statement: Those systems with pertinent positive or pertinent negative responses have been documented in the HPI. ROS Other: All systems not noted in ROS Statement are negative. Past Medical History Past Medical History: Chest Pain / Angina, CVA/TIA, GERD/Reflux, Hyperlipidemia, Hypertension, Osteoarthritis (OA), Sleep Apnea/CPAP/BIPAP Additional Past Medical History / Comment(s): DDD, DJD, SPINAL STENOSIS,occluded carotid right artery, RLS, seasonal allergies.CPAP USED. HAD GERD IN PAST NONE SINCE HIATAL HERNIA SX.,CARDIOMYOPATHY History of Any Multi-Drug Resistant Organisms: None Reported Past Surgical History: Adenoidectomy, Appendectomy, Bladder Surgery, Cholecystectomy, Hysterectomy, Joint Replacement, Tonsillectomy Additional Past Surgical History / Comment(s): bilateral hip replacments, partial hysterectomy-still has ovaries, sinus sx,niko cataracts-lens implants, hiatal hernia sx Past Anesthesia/Blood Transfusion Reactions: No Reported Reaction Past Psychological History: Depression Additional Psychological History / Comment(s): pt is independant. lives with spouse in 1 level home that has 2 porch steps. no home care services recieved. has a cpap machine. Smoking Status: Former smoker Past Alcohol Use History: None Reported Additional Past Alcohol Use History / Comment(s): started smoking at age 18(1958) and quit 2001. smoked 1 ppd. Past Drug Use History: None Reported - Past Family History Mother Family Medical History: Cancer Additional Family Medical History / Comment(s): colon cancer Father Family Medical History: Congestive Heart Failure (CHF) General Exam General appearance: alert, in no apparent distress Head exam: Present: atraumatic, normocephalic Eye exam: Present: normal appearance ENT exam: Present: mucous membranes dry Neck exam: Present: normal inspection. Absent: tenderness, meningismus Respiratory exam: Present: wheezes, rhonchi. Absent: respiratory distress Cardiovascular Exam: Present: tachycardia, irregular rhythm GI/Abdominal exam: Present: soft. Absent: distended, tenderness, guarding Extremities exam: Present: normal inspection, normal capillary refill. Absent: pedal edema Neurological exam: Present: alert, oriented X3, CN II-XII intact. Absent: motor sensory deficit Psychiatric exam: Present: normal affect, normal mood Skin exam: Present: warm, dry, intact. Absent: cyanosis, diaphoretic Course Vital Signs 04/16/18 04/16/18 04/16/18 13:00 13:06 13:25 Temperature 102.5 F H Pulse Rate 221 H 81 Pulse Rate [ 220 H Supervisor Prep ] Respiratory 20 18 Rate Blood Pressure 96/57 113/62 O2 Sat by Pulse 97 97 Oximetry EKG Findings - EKG Comments: EKG Findings:: EKG obtained at 1247, atrial fibrillation with rapid ventricular response, qrs widened 154, ventricular rate 206, QTC 385, ST segment depression in the precordial leads. No ST segment elevation. EKG obtained at 1311, sinus rhythm although DC interval is shortened at 84, there is ST segment depression in the precordial leads, no ST segment elevation, rate of 85, QRS duration 76, QTC 428 Medical Decision Making - Medical Decision Making 78-year-old female presenting in A. fib with RVR, rate around 200. Patient started on Cardizem. Given a fluid bolus. Patient does report URI symptoms, she is fluid positive, started on Tamiflu. Chest x-ray shows concern for either pneumonia or CHF, no history of CHF. Patient has normal CBC, CMP reveals magnesium 1.5 which is replaced. Mild lactic acidosis of 2.5. Patient will be admitted for rate control, IV fluids, Tamiflu for influenza. Case discussed with Dr. Jauregui, will admit. Repeat EKG does show persistent ST segment depression, there is no ST segment elevation, patient has no chest pain or anginal equivalent. She is anticoagula jose rafael on eliquis. - Lab Data Result diagrams: 04/16/18 12:50 04/16/18 12:50 Lab Results 04/16/18 04/16/18 04/16/18 Range/Units 12:50 12:50 12:50 WBC 9.3 (3.8-10.6) k/uL RBC 5.25 (3.80-5.40) m/uL Hgb 14.0 (11.4-16.0) gm/dL Hct 44.8 (34.0-46.0) % MCV 85.4 (80.0-100.0) fL MCH 26.7 (25.0-35.0) pg MCHC 31.3 (31.0-37.0) g/dL RDW 14.5 (11.5-15.5) % Plt Count 148 L (150-450) k/uL Neutrophils % 71 % Lymphocytes % 19 % Monocytes % 8 % Eosinophils % 1 % Basophils % 0 % Neutrophils # 6.6 (1.3-7.7) k/uL Lymphocytes # 1.7 (1.0-4.8) k/uL Monocytes # 0.7 (0-1.0) k/uL Eosinophils # 0.0 (0-0.7) k/uL Basophils # 0.0 (0-0.2) k/uL PT 11.3 (9.0-12.0) sec INR 1.1 (<1.2) APTT 27.8 (22.0-30.0) sec Sodium 137 (137-145) mmol/L Potassium 3.8 (3.5-5.1) mmol/L Chloride 102 (98-107) mmol/L Carbon Dioxide 24 (22-30) mmol/L Anion Gap 11 mmol/L BUN 12 (7-17) mg/dL Creatinine 0.94 (0.52-1.04) mg/dL Est GFR (CKD-EPI)AfAm 67 (>60 ml/min/1.73 sqM) Est GFR (CKD-EPI)NonAf 58 (>60 ml/min/1.73 sqM) Glucose 113 H (74-99) mg/dL Plasma Lactic Acid Raphael (0.7-2.0) mmol/L Calcium 9.4 (8.4-10.2) mg/dL Magnesium 1.5 L (1.6-2.3) mg/dL Total Bilirubin 1.1 (0.2-1.3) mg/dL AST 32 (14-36) U/L ALT 32 (9-52) U/L Alkaline Phosphatase 91 (38-126) U/L Troponin I (0.000-0.034) ng/mL Total Protein 6.3 (6.3-8.2) g/dL Albumin 3.6 (3.5-5.0) g/dL Influenza Type A RNA (Not Detectd) Influenza Type B (PCR) (Not Detectd) 04/16/18 04/16/18 04/16/18 Range/Units 12:50 13:20 13:20 WBC (3.8-10.6) k/uL RBC (3.80-5.40) m/uL Hgb (11.4-16.0) gm/dL Hct (34.0-46.0) % MCV (80.0-100.0) fL MCH (25.0-35.0) pg MCHC (31.0-37.0) g/dL RDW (11.5-15.5) % Plt Count (150-450) k/uL Neutrophils % % Lymphocytes % % Monocytes % % Eosinophils % % Basophils % % Neutrophils # (1.3-7.7) k/uL Lymphocytes # (1.0-4.8) k/uL Monocytes # (0-1.0) k/uL Eosinophils # (0-0.7) k/uL Basophils # (0-0.2) k/uL PT (9.0-12.0) sec INR (<1.2) APTT (22.0-30.0) sec Sodium (137-145) mmol/L Potassium (3.5-5.1) mmol/L Chloride (98-107) mmol/L Carbon Dioxide (22-30) mmol/L Anion Gap mmol/L BUN (7-17) mg/dL Creatinine (0.52-1.04) mg/dL Est GFR (CKD-EPI)AfAm (>60 ml/min/1.73 sqM) Est GFR (CKD-EPI)NonAf (>60 ml/min/1.73 sqM) Glucose (74-99) mg/dL Plasma Lactic Acid Raphael 2.5 H* (0.7-2.0) mmol/L Calcium (8.4-10.2) mg/dL Magnesium (1.6-2.3) mg/dL Total Bilirubin (0.2-1.3) mg/dL AST (14-36) U/L ALT (9-52) U/L Alkaline Phosphatase (38-126) U/L Troponin I 0.021 (0.000-0.034) ng/mL Total Protein (6.3-8.2) g/dL Albumin (3.5-5.0) g/dL Influenza Type A RNA Detected H (Not Detectd) Influenza Type B (PCR) Not Detected (Not Detectd) Critical Care Time Critical Care Time: Yes Total Critical Care Time: 35 Disposition Clinical Impression: Atrial fibrillation with RVR, Influenza A Disposition: ADMITTED IP TO THIS HOSP Condition: Stable Is patient prescribed a controlled substance at d/c from ED?: No Referrals: Lan Wallace MD [Primary Care Provider] - 1-2 days Decision to Admit Reason: Admit from EC Decision Date: 04/16/18 Decision Time: 14:10
[2018-04-16] MEDS ORDERED: DILTIAZEM 125 MG in SODIUM CHLORIDE 0.9% 100 ML IV SCH (13:15)
[2018-04-16 13:18] LABS: Basophils % (A) 0 %; Eosinophils % (A) 1 %; HCT 44.8 % (34.0-46.0); Lymphocytes # (A) 1.7 k/uL (1.0-4.8); Lymphocytes % (A) 19 %; MCH 26.7 pg (25.0-35.0); MCHC 31.3 g/dL (31.0-37.0); MCV 85.4 fL (80.0-100.0); Mean Platelet Volume 6.8; Monocytes # (A) 0.7 k/uL (0-1.0); Monocytes % (A) 8 %; Neutrophils # (A) 6.6 k/uL (1.3-7.7); Neutrophils % (A) 71 %; Platelet Count 148 k/uL (150-450); RBC 5.25 m/uL (3.80-5.40); RDW 14.5 % (11.5-15.5); WBC 9.3 k/uL (3.8-10.6)
[2018-04-16 13:28] LABS: Albumin 3.6 g/dL (3.5-5.0); Calcium 9.4 mg/dL (8.4-10.2); Magnesium 1.5 mg/dL (1.6-2.3); Potassium 3.8 mmol/L (3.5-5.1); Total Bilirubin 1.1 mg/dL (0.2-1.3); Total Protein 6.3 g/dL (6.3-8.2)
[2018-04-16 13:32] LABS: INR 1.1 (<1.2); Partial Thromboplastin Time 27.8 sec (22.0-30.0); Prothrombin Time 11.3 sec (9.0-12.0)
[2018-04-16] MEDS ORDERED: OSELTAMIVIR 75 MG CAP PO STA (13:51)
[2018-04-16] MEDS ORDERED: MAGNESIUM SULFATE-D5W PMX 1 GM in DEXTROSE/WATER 1 100ML.BAG IVPB ONE (13:52)
--- NOTE | 2018-04-16 13:54 | XR ---
EXAMINATION TYPE: XR chest 1V portable DATE OF EXAM: 04/16/2018 COMPARISON: NONE HISTORY: Chest pain FINDINGS: There are bilateral pleural effusions with cardiomegaly and bibasilar infiltrate. There is a diffuse interstitial pattern. Diffuse osteopenia. Arthropathy of the shoulders. Postsurgical change involvin g the right shoulder. Surgical clips in the abdomen. IMPRESSION: 1. Correlate for CHF. Otherwise consider pneumonia.
[2018-04-16] MEDS ORDERED: cefTRIAXone IN SWFI 1,000 MG/10 ML SYRINGE IVP STA (14:03)
[2018-04-16] MEDS ORDERED: NALOXONE 0.4 MG/ML 1 ML VIAL IV PRN (14:11)
[2018-04-16] MEDS ORDERED: ACETAMINOPHEN TAB 325 MG TAB PO STA (14:36)
[2018-04-16] MEDS: SODIUM CHLORIDE 0.9% 1,000 ML IV SCH (18:05)
[2018-04-16] MEDS ORDERED: LACTULOSE 20 GM/30 ML CUP PO PRN (18:44)
[2018-04-16] MEDS ORDERED: ONDANSETRON 4 MG/2 ML VIAL IVP PRN (18:44)
[2018-04-16] MEDS ORDERED: MELATONIN 3 MG TABLET PO PRN (18:44)
[2018-04-16] MEDS ORDERED: CALCIUM CARBONATE 500 MG CHEWABLE PO PRN (18:44)
[2018-04-16] MEDS ORDERED: MAGNESIUM HYDROXIDE 2,400 MG/10 ML CUP PO PRN (18:44)
--- NOTE | 2018-04-16 19:54 | HP ---
HISTORY AND PHYSICAL DATE OF ADMISSION AND SERVICE: 04/16/2018 PRESENTING COMPLAINT: Cough, fever. HISTORY OF PRESENTING COMPLAINT: This is a pleasant 78-year-old patient of Dr. Wallace. Patient's chronic stable medical conditions include GERD, hyperlipidemia, hypertension, osteoarthritis, obstructive sleep apnea, spinal stenosis, occluded right carotid artery, restless legs syndrome, sleep apnea with CPAP, diverticular disease. The patient for 2 days has been having increasing amount of cough, dry, feeling weak, tired, rundown, fever, chills. Patient called EMS and she was found to be in SVT, given adenosine and she converted to sinus rhythm. Patient's blood pressure was running in the 90s at that time. The patient feels rather congested in the ER. The patient tested positive for flu, was started on Tamiflu. Patient does feel a bit tired and rundown. REVIEW OF SYSTEMS: CONSTITUTIONAL: Tired. Febrile. HEENT: Congestion. RESPIRATORY: As above with cough. CARDIOVASCULAR: Heart was racing. GASTROINTESTINAL: None. GENITOURINARY: Incontinence. MUSCULOSKELETAL: Pain in several joints. DERMATOLOGICAL: None. HEMATOLOGICAL: None. LYMPHATICS: None. PSYCHIATRY: None. NEUROLOGICAL: None. PAST MEDICAL HISTORY: 1. Stroke. 2. GERD. 3. Hyperlipidemia. 4. Hypertension. 5. Osteoarthritis. 6. Sleep apnea with CPAP. 7. Spinal stenosis. 8. Chronic bilateral hip pain. 9. Occluded right carotid artery. 10.Restless legs syndrome. 11.Diverticulosis. PAST SURGICAL HISTORY: 1. Adenoidectomy. 2. Appendectomy. 3. Bladder surgery. 4. Cholecystectomy. 5. Hysterectomy. 6. Bilateral hip replacement. 7. Right rotator cuff repair. 8. Partial hysterectomy. Ovaries are present. 9. Bilateral cataract lens implants. 10.Hiatal hernia surgery. 11.Bladder suspension. 12.Left breast biopsy, benign. PSYCH HISTORY: Bipolar. SOCIAL HISTORY: Lives with her spouse. Patient smoked for about 44 years, 1 pack a day; stopped in 2001. Alcohol none. FAMILY HISTORY: Colon cancer. HOME MEDICATIONS: 1. Requip 1 mg p.o. b.i.d. 2. Hytrin 5 mg p.o. daily. 3. Pamelor 20 mg at bedtime. 4. Singulair 10 mg at bedtime. 5. Lopressor 25 mg b.i.d. 6. Cozaar 100 mg p.o. daily. 7. Anna 180 mg p.o. daily. 8. Pepcid 40 mg p.o. daily. 9. Lexapro 40 mg p.o. daily. 10.Lipitor 10 mg p.o. at bedtime. 11.Eliquis 5 mg p.o. b.i.d. ALLERGIES: 1. TYLENOL. 2. SULFA. 3. ABILIFY. 4. BANANAS. 5. BUPROPION. 6. CODEINE. 7. MORPHINE. 8. NITROFURANTOIN. PHYSICAL EXAMINATION: Temperature 102.1, pulse 85, respiration 18, blood pressure 125/66, pulse ox 97% on room air. GENERAL APPEARANCE: Average build. Lying in bed, tired-appearing. EYES: Pupils equal. Conjunctivae normal. HEENT: External appearance of nose and ears normal. Oral cavity normal. NECK: JVD not raised. Mass not palpable. RESPIRATORY: Effort normal. LUNGS: Decreased breath sounds. CARDIOVASCULAR: First and second sounds normal. No edema. ABDOMEN: Soft, non-tender. Liver and spleen not palpable. LYMPHATIC: No lymph node palpable in neck or axillae. PSYCHIATRY: Alert and oriented x3. Mood and affect normal. NEUROLOGICAL: Pupils equal. Cranial nerves grossly intact. Power and sensation grossly intact. INVESTIGATIONS: White count 9.3, hemoglobin 14.0, potassium 3.8. BUN and creatinine are normal. Lactic acid 2.5, repeat 1.5. Influenza type A RNA positive. EKG tracing, personally reviewed by me, shows some ST-segment depression in anterolateral leads. Chest x-ray film, personally reviewed by me, shows cardiomegaly, probably possible infiltrates. ASSESSMENT: 1. Acute influenza A pneumonitis, bilateral. 2. Probably supraventricular tachycardia as a result of the above. 3. Gastroesophageal reflux disease. 4. Hyperlipidemia. 5. Essential hypertension. 6. Primary osteoarthritis. 7. Obstructive sleep apnea. Uses CPAP machine. 8. Chronic spinal stenosis. 9. Restless legs syndrome. 10.Colonic diverticulosis. PLAN: Home medications are resumed. Patient was put on IV Cardizem in the ER. The patient has EKG changes. Also started on Tamiflu. Will get a cardiology opinion. Care was discussed with the patient. MMODL / IJN: [id number] /
[2018-04-16] MEDS ORDERED: OSELTAMIVIR 60 MG/10 ML ORAL SYRINGE PO SCH (21:00)
[2018-04-16] MEDS: OSELTAMIVIR 60 MG/10 ML ORAL SYRINGE PO SCH (21:10)
[2018-04-16] MEDS: APIXABAN 5 MG TAB PO SCH (21:12)
[2018-04-16] MEDS: METOPROLOL TARTRATE 25 MG TAB PO SCH (21:12)
[2018-04-16] MEDS: MONTELUKAST 10 MG TAB PO SCH (21:12)
[2018-04-16] MEDS: NORTRIPTYLINE 10 MG CAP PO SCH (21:12)
[2018-04-16] MEDS: ATORVASTATIN 10 MG TAB PO SCH (21:12)
[2018-04-17] MEDS: SODIUM CHLORIDE 0.9% 1,000 ML IV SCH (09:57)
[2018-04-17] MEDS: OSELTAMIVIR 60 MG/10 ML ORAL SYRINGE PO SCH ×2 (09:58→20:02)
[2018-04-17] MEDS: APIXABAN 5 MG TAB PO SCH ×2 (09:58→20:01)
[2018-04-17] MEDS: ESCITALOPRAM 20 MG TAB PO SCH (09:59)
[2018-04-17] MEDS: LORATADINE 10 MG TAB PO SCH (09:59)
[2018-04-17] MEDS: METOPROLOL TARTRATE 25 MG TAB PO SCH ×2 (09:59→20:01)
[2018-04-17] MEDS: FAMOTIDINE 20 MG TAB PO SCH (09:59)
[2018-04-17] MEDS: DOXAZOSIN 4 MG TAB PO SCH (09:59)
[2018-04-17] MEDS: LOSARTAN 50 MG TAB PO SCH (09:59)
[2018-04-17] MEDS: FUROSEMIDE 10 MG/ML 4 ML VIAL IV SCH ×2 (14:06→20:03)
--- NOTE | 2018-04-17 14:32 | P.CRDCN ---
History of Present Illness History of present illness: This is a pleasant 78-year-old female past medical history significant for carotid artery disease, hypertension, dyslipidemia, obstructive sleep apnea and paroxysmal atrial fibrillation on long-term anticoagulation. She follows in the office with Dr. Benitez. We have been asked to see her in consultation secondary to atrial fibrillation. She states all week she has been struggling with a cough. She saw her primary care physician earlier this week and was given a decongestant. However her cough and shortness of breath got significantly worse overnight and she decided to call EMS. When they arrived her heart was rate was fast in the 200's and adenosine was given. Upon arrival EKG showed she was in atrial fibrillation with rate of 206. IV cardizem was given and she converted to sinus mechanism. She was found to be positive for influenza A with lactic acidosis and was given a fluid bolus of 500 mL along with 75 per hour. She is seen and examined sitting up in bed in significant respiratory distress with audible wheezing and inability to complete full sentences. No retractions. She complains of ongoing shortness of breath. Denies chest pain, dizziness or palpitations. Chest x-ray on admission reveals evidence of congestive heart failure. Laboratory data reviewed, WBC 9.3, hemoglobin 14, platelets 137, sodium 138, potassium 3.8, creatinine 0.94, lactic acid on admission 2.5 down to 1.5 on repeat, magnesium 1.5, NT proBNP 1150 and TSH 1.01. Current cardiac medications include Eliquis 5 mg twice a day, atorvastatin 10 mg daily, losartan 100 mg daily, Lopressor 25 mg twice a day. Most recent echocardiogram obtained in the office December 2017 revealed preserved left ventricular systolic function with mild mitral regurgitation and mild tricuspid regurgitation. At the time of my exam: CONSTITUTIONAL: Denies fever. Denies chills. EYES: Denies blurred vision. Denies vision changes. Denies eye pain. EARS, NOSE, MOUTH & THROAT: Denies headache. Denies sore throat. Denies ear pain. CARDIOVASCULAR: Denies chest pain. Complains of of shortness of breath. Denies orthopnea. Denies PND. Denies palpitations. RESPIRATORY: Complains of cough. GASTROINTESTINAL: Denies abdominal pain. Denies diarrhea. Denies constipation. Denies nausea. Denies vomiting. MUSCULOSKELETAL: Denies myalgias. INTEGUMENTARY: Denies pruitis. Denies rash. NEUROLOGIC: Denies numbness. Denies tingling. Denies weakness. PSYCHIATRIC: Denies anxiety. Denies depression. ENDOCRINE: Denies fatigue. Denies weight change. Denies polydipsia. Denies polyurina. GENITOURINARY: Denies burning, hematuria or urgency with micturation. HEMATOLOGIC: Denies history of anemia. Denies bleeding. Blood pressure 145/79 heart rate 68 afebrile maintaining oxygen saturation GENERAL: This is a 78-year-old female in mild respiratory distress at the time of my examination. HEENT: Head is atraumatic, normocephalic. Pupils are equal, round. Sclerae anicteric. Conjunctivae are clear. Mucous membranes of the mouth are moist. Neck is supple. There is no jugular venous distention. No carotid bruit is heard. LUNGS: Course rales bibasilar, rhonchi throughout and bronichial wheezeing. No chest wall tenderness is noted on palpation or with deep breathing. HEART: Regular rate and rhythm with systolic ejection murmur at the left sternal border, no rubs or gallops. S1 and S2 heard. ABDOMEN: Soft, nontender. Bowel sounds are heard. No organomegaly noted. EXTREMITIES: No evidence of peripheral edema and no calf tenderness noted. VASCULAR: Radial and dorsalis pedis pulses palpated, no evidence of clubbing. NEUROLOGIC: Patient is awake, alert and oriented x3. ASSESSMENT Influenza A Lactic acidosis Hypomagnesemia Paroxysmal atrial fibrillation on long-term anticoagulation, currently maintaining sinus mechanism Acute on chronic systolic heart failure Hypertension Dyslipidemia History of nonischemic cardiomyopathy Right carotid artery stenosis Valvular heart disease, mitral and tricuspid regurgitation PLAN Obtain 2-D echocardiogram and Doppler study to assess cardiac structure and function. Initiate on Lasix 40 mg IV twice a day. Obtain a second troponin. Documentation of intake and output along with daily weights. Follow electrolytes and kidney function daily. Discontinue IV fluid. Replace magnesium per protocol. Resume metoprolol, losartan, eliquis and atorvastatin. Further recommendations to follow based on clinical course. Thank you kindly for this consultation. Nurse Practitioner note has been reviewed, I agree with a documented findings and plan of care. Patient was seen and examined. Past Medical History Past Medical History: Chest Pain / Angina, CVA/TIA, GERD/Reflux, Hyperlipidemia, Hypertension, Osteoarthritis (OA), Sleep Apnea/CPAP/BIPAP Additional Past Medical History / Comment(s): DDD, DJD, SPINAL STENOSIS, chronic bilateral hip pain worse on R side, 2018 septic arthritis R wrist, occluded carotid right artery, TIA x 2, RLS, seasonal allergies, KEVIN with CPAP USED, UTIs, diverticular dx, HAD GERD IN PAST NONE SINCE HIATAL HERNIA SX.,CARDIOMYOPATHY, murmur. History of Any Multi-Drug Resistant Organisms: None Reported Past Surgical History: Adenoidectomy, Appendectomy, Bladder Surgery, Cholecystectomy, Hysterectomy, Joint Replacement, Orthopedic Surgery, Tonsillectomy Additional Past Surgical History / Comment(s): bilateral hip replacments, R rotator cuff repair, partial hysterectomy-still has ovaries, sinus sx twice, niko cataracts-lens implants, hiatal hernia sx, bladder suspension, L breast bx- benign Past Anesthesia/Blood Transfusion Reactions: No Reported Reaction, Motion Sickness Past Psychological History: Anxiety, Bipolar, Depression Additional Psychological History / Comment(s): Pt is independant. Pt lives with spouse in 1 level home that has 2 porch steps. no home care services recieved. has a cpap machine. Pt drives. Smoking Status: Former smoker Past Alcohol Use History: None Reported Additional Past Alcohol Use History / Comment(s): started smoking at age 18(1958) and quit 2001. smoked 1 ppd. Past Drug Use History: None Reported - Past Family History Mother Family Medical History: Cancer Additional Family Medical History / Comment(s): colon cancer Father Family Medical History: Congestive Heart Failure (CHF) Medications and Allergies Home Medications Medication Instructions Recorded Confirmed Type Atorvastatin [Lipitor] 10 mg PO HS 12/17/16 04/16/18 History Escitalopram [Lexapro] 40 mg PO DAILY 12/17/16 04/16/18 History Famotidine 40 mg PO DAILY 12/17/16 04/16/18 History Montelukast [Singulair] 10 mg PO HS 12/17/16 04/16/18 History Nortriptyline [Pamelor] 20 mg PO HS 12/17/16 04/16/18 History rOPINIRole HCL [Requip] 1 mg PO BID 12/17/16 04/16/18 History Apixaban [Eliquis] 5 mg PO BID 11/26/17 04/16/18 History Fexofenadine HCl [Anna Allergy] 180 mg PO DAILY 11/26/17 04/16/18 History Metoprolol Tartrate [Lopressor] 25 mg PO BID 11/26/17 04/16/18 History Losartan Potassium [Cozaar] 100 mg PO DAILY 04/16/18 04/16/18 History Terazosin [Hytrin] 5 mg PO DAILY 04/16/18 04/16/18 History Psyllium Husk 100% [Metamucil 6 gm PO HS 04/17/18 04/17/18 History Packet] Allergies Allergy/AdvReac Type Severity Reaction Status Date / Time acetaminophen [From Dowell] Allergy Rash/Hives Verified 04/16/18 14:09 hydrocodone [From Dowell] Allergy Rash/Hives Verified 04/16/18 14:09 Sulfa (Sulfonamide Allergy Rash/Hives Verified 04/16/18 14:09 Antibiotics) aripiprazole [From Abilify] AdvReac Hallucinati Verified 04/16/18 14:09 ons banana AdvReac Nausea & Verified 04/16/18 14:09 Vomiting & Diarrhea bupropion [From Wellbutrin] AdvReac Hallucinati Verified 04/16/18 14:09 ons codeine AdvReac Nausea & Verified 04/16/18 14:09 Vomiting morphine AdvReac Nausea & Verified 04/16/18 14:09 Vomiting nitrofurantoin AdvReac Unknown Verified 04/16/18 14:09 propoxyphene [From Darvon] AdvReac Nausea & Verified 04/16/18 14:09 Vomiting Physical Exam Vitals: Vital Signs Temp Pulse Pulse Pulse Resp BP BP 04/17/18 11:38 68 19 145/79 04/17/18 08:30 97.8 F 74 19 119/67 04/17/18 03:45 98.4 F 71 18 156/76 04/16/18 23:27 62 16 112/74 04/16/18 21:19 98.9 F 80 20 117/61 04/16/18 16:07 101.6 F H 85 20 124/63 04/16/18 15:22 102.1 F H 85 18 125/66 04/16/18 15:00 90 20 122/63 04/16/18 14:30 80 20 133/78 04/16/18 14:00 20 121/94 04/16/18 13:30 18 113/62 04/16/18 13:25 81 18 113/62 04/16/18 13:06 102.5 F H 221 H 20 96/57 04/16/18 13:00 186 H 220 H 20 111/95 04/16/18 12:45 213 H 20 Pulse Ox 04/17/18 11:38 92 L 04/17/18 08:30 98 04/17/18 03:45 96 04/16/18 23:27 95 04/16/18 21:19 93 L 04/16/18 16:07 92 L 04/16/18 15:22 97 04/16/18 15:00 95 04/16/18 14:30 96 04/16/18 14:00 97 04/16/18 13:30 96 04/16/18 13:25 97 04/16/18 13:06 97 04/16/18 13:00 96 04/16/18 12:45 97 Intake and Output 04/16/18 04/17/18 04/17/18 22:59 06:59 14:59 Intake Total 465 52.833 480 Balance 465 52.833 480 Intake: Intake, IV Titration 225 52.833 Amount Diltiazem 125 mg In 52.833 Sodium Chloride 0.9% 100 ml @ 5 MG/HR 5 mls/hr IV .Q24H [facility] Rx#:[id number] Sodium Chloride 0.9% 1, 225 000 ml @ 75 mls/hr IV . [id number] [facility] Rx#:[id number] Oral 240 480 Other: Voiding Method Toilet # Voids 2 Weight 70.5 kg Results 04/16/18 12:50 04/16/18 12:50 Cardiac Enzymes 04/16/18 04/16/18 Range/Units 12:50 12:50 AST 32 (14-36) U/L Troponin I 0.021 (0.000-0.034) ng/mL Coagulation 04/16/18 Range/Units 12:50 PT 11.3 (9.0-12.0) sec APTT 27.8 (22.0-30.0) sec CBC 04/16/18 Range/Units 12:50 WBC 9.3 (3.8-10.6) k/uL RBC 5.25 (3.80-5.40) m/uL Hgb 14.0 (11.4-16.0) gm/dL Hct 44.8 (34.0-46.0) % Plt Count 148 L (150-450) k/uL Comprehensive Metabolic Panel 04/16/18 Range/Units 12:50 Sodium 137 (137-145) mmol/L Potassium 3.8 (3.5-5.1) mmol/L Chloride 102 (98-107) mmol/L Carbon Dioxide 24 (22-30) mmol/L BUN 12 (7-17) mg/dL Creatinine 0.94 (0.52-1.04) mg/dL Glucose 113 H (74-99) mg/dL Calcium 9.4 (8.4-10.2) mg/dL AST 32 (14-36) U/L ALT 32 (9-52) U/L Alkaline Phosphatase 91 (38-126) U/L Total Protein 6.3 (6.3-8.2) g/dL Albumin 3.6 (3.5-5.0) g/dL Current Medications Generic Name Dose Route Start Last Admin Trade Name Freq PRN Reason Stop Dose Admin Alprazolam 0.25 mg 04/16/18 18:44 Xanax PO Q6HR PRN Anxiety Apixaban 5 mg 04/16/18 21:00 04/17/18 09:58 Eliquis PO 5 mg BID SENG Administration Atorvastatin Calcium 10 mg 04/16/18 21:00 04/16/18 21:12 Lipitor PO 10 mg HS SENG Administration Calcium Carbonate/Glycine 1,000 mg 04/16/18 18:44 Tums PO Q4HR PRN Dyspepsia Doxazosin Mesylate 4 mg 04/17/18 09:00 04/17/18 09:59 Cardura PO 4 mg DAILY SENG Administration Escitalopram Oxalate 40 mg 04/17/18 09:00 04/17/18 09:59 Lexapro PO 40 mg DAILY SENG Administration Famotidine 40 mg 04/17/18 09:00 04/17/18 09:59 Pepcid PO 40 mg DAILY SENG Administration Furosemide 40 mg 04/17/18 12:30 Lasix IV Q12HR SENG Lactulose 20 gm 04/16/18 18:44 Cephulac PO DAILY PRN Constipation Loratadine 10 mg 04/17/18 09:00 03/08/19 09:59 Claritin PO 10 mg DAILY SENG Administration Losartan Potassium 100 mg 04/17/18 09:00 04/17/18 09:59 Cozaar PO 100 mg DAILY SENG Administration Magnesium Hydroxide 2,400 mg 04/16/18 18:44 Milk Of Magnesia PO DAILY PRN Constipation Melatonin 3 mg 04/16/18 18:44 04/16/18 21:15 Melatonin PO 3 mg HS PRN Administration Insomnia Metoprolol Tartrate 25 mg 04/16/18 21:00 04/17/18 09:59 Lopressor PO 25 mg BID SENG Administration Montelukast Sodium 10 mg 04/16/18 21:00 04/16/18 21:12 Singulair PO 10 mg HS SENG Administration Naloxone HCl 0.2 mg 04/16/18 14:11 Narcan IV Q2M PRN Opioid Reversal Nortriptyline HCl 20 mg 04/16/18 21:00 04/16/18 21:12 Pamelor PO 20 mg HS SENG Administration Ondansetron HCl 4 mg 04/16/18 18:44 Zofran IVP Q8HR PRN Nausea And Vomiting Oseltamivir Phosphate 30 mg 04/16/18 21:00 04/17/18 09:58 Tamiflu PO 04/21/18 09:01 30 mg Q12HR SENG Administration Psyllium Hydrophilic Mucilloid 6 gm 04/17/18 21:00 Metamucil PO HS SENG Ropinirole HCl 1 mg 04/16/18 21:00 04/17/18 09:59 Requip PO 1 mg BID SENG Administration Intake and Output 04/16/18 04/17/18 04/17/18 22:59 06:59 14:59 Intake Total 465 52.833 480 Balance 465 52.833 480 Intake: Intake, IV Titration 225 52.833 Amount Diltiazem 125 mg In 52.833 Sodium Chloride 0.9% 100 ml @ 5 MG/HR 5 mls/hr IV .Q24H [facility] Rx#:[id number] Sodium Chloride 0.9% 1, 225 000 ml @ 75 mls/hr IV . [id number] [facility] Rx#:[id number] Oral 240 480 Other: Voiding Method Toilet # Voids 2 Weight 70.5 kg 04/16/18 12:50 04/16/18 12:50
[2018-04-17] MEDS: PSYLLIUM HUSK 100% 6 GM PACKET PO SCH (20:01)
[2018-04-17] MEDS: ATORVASTATIN 10 MG TAB PO SCH (20:01)
[2018-04-17] MEDS: MONTELUKAST 10 MG TAB PO SCH (20:01)
[2018-04-17] MEDS: NORTRIPTYLINE 10 MG CAP PO SCH (20:02)
[2018-04-17] MEDS ORDERED: DILTIAZEM DRIP BOLUS FROM BAG 1 MG SOLN IV ONE (20:53)
[2018-04-17] MEDS ORDERED: DILTIAZEM 125 MG in SODIUM CHLORIDE 0.9% 100 ML IV SCH (21:00)
--- NOTE | 2018-04-18 00:34 | PN ---
PROGRESS NOTE DATE OF SERVICE: 04/17/2018. PRESENTING COMPLAINT: Cough and fever. INTERVAL HISTORY: The patient presented with acute influenza A and also per Cardiology now patient had paroxysmal atrial fibrillation, rapid ventricular rate. Feels a bit better. Respiratory symptoms are a bit better. REVIEW OF SYSTEMS: Done for constitutional, cardiovascular, GI, pulmonary; relevant findings above. CURRENT MEDICATIONS: Reviewed that include Eliquis, IV Cardizem, Lopressor, Tamiflu. PHYSICAL EXAMINATION: Temperature 97.8, pulse 74, respirations 19, blood pressure 109/67, pulse ox 98% on 3 L. GENERAL APPEARANCE: Sitting up, awake. EYES: Pupils equal. Conjunctivae normal. NECK: JVD not raised. Mass not palpable. Respiratory effort normal. LUNGS: Slightly decreased breath sounds. CARDIOVASCULAR: 1st and 2nd sounds normal. No edema. ABDOMEN: Soft, nontender. Liver and spleen not palpable. PSYCHIATRY: Alert and oriented x3. Mood and affect normal. INVESTIGATIONS: Troponin 0.0, 2.1, 2.3. ASSESSMENT: 1. Acute influenza A. 2. Pneumonitis bilateral. 3. Paroxysmal atrial fibrillation with rapid ventricular rate. 4. Gastroesophageal reflux disease. 5. Hyperlipidemia. 6. Essential hypertension. 7. Primary osteoarthritis. 8. Obstructive sleep apnea uses CPAP machine. 9. Chronic spinal stenosis. 10.Restless legs syndrome. 11.Chronic diverticulosis. 12.Acute non-Q-wave VA. The patient is already being followed by Cardiology. The patient is on also on Eliquis. Also on beta radha. Follow up with Cardiology. MMODL / IJN: [id number] /
[2018-04-18 08:06] LABS: Anion Gap 7 mmol/L; Blood Urea Nitrogen 12 mg/dL (7-17); Calcium 9.1 mg/dL (8.4-10.2); Carbon Dioxide 27 mmol/L (22-30); Chloride 102 mmol/L (98-107); Glucose 106 mg/dL (74-99); Potassium 3.1 mmol/L (3.5-5.1); Sodium 136 mmol/L (137-145)
[2018-04-18] MEDS: OSELTAMIVIR 60 MG/10 ML ORAL SYRINGE PO SCH ×2 (09:16→21:09)
[2018-04-18] MEDS: METOPROLOL TARTRATE 25 MG TAB PO SCH ×2 (09:17→23:58)
[2018-04-18] MEDS: FUROSEMIDE 10 MG/ML 4 ML VIAL IV SCH ×2 (09:17→21:08)
[2018-04-18] MEDS: DOXAZOSIN 4 MG TAB PO SCH (09:17)
[2018-04-18] MEDS: APIXABAN 5 MG TAB PO SCH ×2 (09:18→21:08)
[2018-04-18] MEDS: ESCITALOPRAM 20 MG TAB PO SCH (09:18)
[2018-04-18] MEDS: LOSARTAN 50 MG TAB PO SCH (09:18)
[2018-04-18] MEDS: LORATADINE 10 MG TAB PO SCH (09:18)
[2018-04-18] MEDS: FAMOTIDINE 20 MG TAB PO SCH (09:18)
[2018-04-18] MEDS ORDERED: Potassium Replacement Protocol 1 EACH MISC MISCELLANE PRN ×2 (12:18→13:15)
[2018-04-18] MEDS ORDERED: Magnesium Replacement Protocol 1 EACH MISC MISCELLANE PRN ×2 (12:18→13:15)
--- NOTE | 2018-04-18 12:19 | ECHOF ---
Referral Reason:sob MEASUREMENTS -------- HEIGHT: 160.0 cm WEIGHT: 70.3 kg BP: IVSd: 1.6 cm (0.6 - 1.1) LVIDd: 3.5 cm (3.9 - 5.3) LVPWd: 1.7 cm (0.6 - 1.1) IVSs: 2.1 cm LVIDs: 2.3 cm LVPWs: 2.1 cm LAESV Index (A-L): 36.76 ml/m Ao Diam: 2.8 cm (2.0 - 3.7) AV Cusp: 1.8 cm (1.5 - 2.6) LA Diam: 3.3 cm (2.7 - 3.8) MV EXCURSION: 14.924 mm (> 18.000) MV EF SLOPE: 61 mm/s (70 - 150) EPSS: 0.7 cm RAP: 5.00 mmHg RVSP: 10.33 mmHg FINDINGS -------- Atrial fibrillation. This was a technically good study. The left ventricular size is normal. There is moderate concentric left ventricular hypertrophy. O verall left ventricular systolic function is normal with, an EF between 55 - 60 %. The right ventricle is normal in size. LA is moderately dilated 34-39 ml/m2 The right atrium is normal in size. The aortic valve is trileaflet and appears structurally normal. Moderate mitral regurgitation is present. Mild tricuspid regurgitation present. The right ventricular systolic pressure, as measured by Doppl er, is 10.33mmHg. Pulmonic valve appears structurally normal. The aortic root, ascending aorta and aortic arch are normal. Normal inferior vena cava with normal inspiratory collapse consistent with estimated right atrial pre ssure of 5 mmHg. The pericardium is normal. CONCLUSIONS -------- 1. Atrial fibrillation. 2. This was a technically good study. 3. The left ventricular size is normal. 4. There is moderate concentric left ventricular hypertrophy. 5. Overall left ventricular systolic function is normal with, an EF between 55 - 60 %. 6. The right ventricle is normal in size. 7. LA is moderately dilated 34-39 ml/m2 8. The right atrium is normal in size. 9. The aortic valve is trileaflet and appears structurally normal. 10. Moderate mitral regurgitation is present. 11. Mild tricuspid regurgitation present. 12. The right ventricular systolic pressure, as measured by Doppler, is 10.33mmHg. 13. Pulmonic valve appears structurally normal. 14. The aortic root, ascending aorta and aortic arch are normal. 15. Normal inferior vena cava with normal inspiratory collapse consistent with estimated right atrial pressure of 5 mmHg. 16. The pericardium is normal. [employer] PROFESSOR: Shirley Rosales RDCS
[2018-04-18] MEDS: POTASSIUM CHLORIDE ER 20 MEQ TAB.ER PO SCH ×2 (13:44→15:34)
--- NOTE | 2018-04-18 14:00 | P.CNPUL ---
History of Present Illness Consult date: 04/18/18 Requesting physician: Wilson Jauregui Reason for consult: dyspnea, abnormal CXR/CT Chief complaint: Anxiety, palpitations History of present illness: This is a very pleasant 78-year-old female patient who follows with Dr. Wallace as her primary care physician. She has a history of paroxysmal atrial fibrillation anticoagulated with Eliquis, hyperlipidemia, hypertension, depression,obstructive sleep apnea, spinal stenosis, right carotid artery stenosis, restless leg syndrome, seasonal ALLERGIES. She does have a 40 year smoking history however quit in 2001. She has not been seen by a photographic process worker in the past. No home oxygen or inhalers. she presented here 2 days ago with feelings of anxiety and palpitations. She was found to be in atrial fibrillation with a rapid ventricular response and was initiated on a Cardizem drip currently at 5 mg per hour. She was also found to have influenza A infection and was started on Tamiflu. We were consulted today by cardiology as they had ruled out congestive heart failure. Echocardiogram revealed preserved left ventricular systolic function with ejection fraction 55-60%. She did have significant shortness of breath and wheezing. Chest x-ray does show evidence of patchy infiltrates bilaterally. White count was 9.3. Hemoglobin 14.0. Creatin ine 0.94. peak troponin 2.30. ProBNP 1150. The patient is seen today in consultation on the selective care unit. She is currently awake and alert. She is quite fatigued and weak. She does have some audible wheezing. She continues to maintain O2 saturations in the 90s on room air. Temperature 99.2. Slightly tachycardic in the 110s. Blood pressure stable. Cardizem drip remains at 10 mg per hour. Blood cultures revealing no growth. Review of Systems 14 point review of system was conducted. All negative other than as mentioned in the HPI. Past Medical History Past Medical History: Chest Pain / Angina, CVA/TIA, GERD/Reflux, Hyperlipidemia, Hypertension, Osteoarthritis (OA), Sleep Apnea/CPAP/BIPAP Additional Past Medical History / Comment(s): DDD, DJD, SPINAL STENOSIS, chronic bilateral hip pain worse on R side, 2018 septic arthritis R wrist, occluded carotid right artery, TIA x 2, RLS, seasonal allergies, KEVIN with CPAP USED, UTIs, diverticular dx, HAD GERD IN PAST NONE SINCE HIATAL HERNIA SX.,CARDIOMYOPATHY, murmur. History of Any Multi-Drug Resistant Organisms: None Reported Past Surgical History: Adenoidectomy, Appendectomy, Bladder Surgery, Cholecystectomy, Hysterectomy, Joint Replacement, Orthopedic Surgery, Tonsillectomy Additional Past Surgical History / Comment(s): bilateral hip replacments, R rotator cuff repair, partial hysterectomy-still has ovaries, sinus sx twice, niko cataracts-lens implants, hiatal hernia sx, bladder suspension, L breast bx- benign Past Anesthesia/Blood Transfusion Reactions: No Reported Reaction, Motion Sickness Past Psychological History: Anxiety, Bipolar, Depression Additional Psychological History / Comment(s): Pt is independant. Pt lives with spouse in 1 level home that has 2 porch steps. no home care services recieved. has a cpap machine. Pt drives. Smoking Status: Former smoker Past Alcohol Use History: None Reported Additional Past Alcohol Use History / Comment(s): started smoking at age 18(1958) and quit 2001. smoked 1 ppd. Past Drug Use History: None Reported - Past Family History Mother Family Medical History: Cancer Additional Family Medical History / Comment(s): colon cancer Father Family Medical History: Congestive Heart Failure (CHF) Medications and Allergies Home Medications Medication Instructions Recorded Confirmed Type Atorvastatin [Lipitor] 10 mg PO HS 12/17/16 04/16/18 History Escitalopram [Lexapro] 40 mg PO DAILY 12/17/16 04/16/18 History Famotidine 40 mg PO DAILY 12/17/16 04/16/18 History Montelukast [Singulair] 10 mg PO HS 12/17/16 04/16/18 History Nortriptyline [Pamelor] 20 mg PO HS 12/17/16 04/16/18 History rOPINIRole HCL [Requip] 1 mg PO BID 12/17/16 04/16/18 History Apixaban [Eliquis] 5 mg PO BID 11/26/17 04/16/18 History Fexofenadine HCl [Anna Allergy] 180 mg PO DAILY 11/26/17 04/16/18 History Metoprolol Tartrate [Lopressor] 25 mg PO BID 11/26/17 04/16/18 History Losartan Potassium [Cozaar] 100 mg PO DAILY 04/16/18 04/16/18 History Terazosin [Hytrin] 5 mg PO DAILY 04/16/18 04/16/18 History Psyllium Husk 100% [Metamucil 6 gm PO HS 04/17/18 04/17/18 History Packet] Allergies Allergy/AdvReac Type Severity Reaction Status Date / Time acetaminophen [From [place]] Allergy Rash/Hives Verified 04/16/18 14:09 hydrocodone [From [place]] Allergy Rash/Hives Verified 04/16/18 14:09 Sulfa (Sulfonamide Allergy Rash/Hives Verified 04/16/18 14:09 Antibiotics) aripiprazole [From Abilify] AdvReac Hallucinati Verified 04/16/18 14:09 ons banana AdvReac Nausea & Verified 04/16/18 14:09 Vomiting & Diarrhea bupropion [From Wellbutrin] AdvReac Hallucinati Verified 04/16/18 14:09 ons codeine AdvReac Nausea & Verified 04/16/18 14:09 Vomiting morphine AdvReac Nausea & Verified 04/16/18 14:09 Vomiting nitrofurantoin AdvReac Unknown Verified 04/16/18 14:09 propoxyphene [From Darvon] AdvReac Nausea & Verified 04/16/18 14:09 Vomiting Physical Exam Vitals: Vital Signs Temp Pulse Resp BP Pulse Ox 04/18/18 10:33 100 18 108/57 96 04/18/18 09:21 99.2 F 111 H 20 97/55 92 L 04/18/18 05:55 99.0 F 101 H 17 112/58 96 04/18/18 00:33 99.0 F 114 H 18 122/65 95 04/17/18 21:23 147 H 116/67 04/17/18 21:20 141 H 140/82 04/17/18 20:00 98.8 F 125 H 18 143/75 94 L Intake and Output 04/17/18 04/18/18 04/18/18 22:59 06:59 14:59 Intake Total 480 160 Output Total 1 Balance 479 160 Intake: Oral 480 160 Output: Urine 1 Other: # Bowel Movements 1 GENERAL EXAM: Alert, fairly comfortable in no apparent distress. Currently on room air. HEAD: Normocephalic. EYES: Normal reaction of pupils, equal size. NOSE: Clear with pink turbinates. THROAT: No erythema or exudates. NECK: No masses, no JVD. CHEST: No chest wall deformity. LUNGS: Equal air entry with was in the posterior bases, end expiratory wheeze, diminished. CVS: S1 and S2 normal with no audible murmur, irregular rhythm. ABDOMEN: No hepatosplenomegaly, normal bowel sounds, no guarding or rigidity. SPINE: No scoliosis or deformity SKIN: No rashes CENTRAL NERVOUS SYSTEM: No focal deficits, tone is normal in all 4 extremities. EXTREMITIES: There is no peripheral edema. No clubbing, no cyanosis. Peripheral pulses are intact. Results - Laboratory Findings CBC and BMP: 04/16/18 12:50 04/18/18 06:57 PT/INR, D-dimer PT 11.3 sec (9.0-12.0) 04/16/18 12:50 INR 1.1 (<1.2) 04/16/18 12:50 Abnormal lab findings: Abnormal Labs 04/16/18 04/16/18 04/16/18 12:50 12:50 13:20 Plt Count 148 L Sodium Potassium Glucose 113 H Plasma Lactic Acid Raphael Magnesium 1.5 L Troponin I Influenza Type A RNA Detected H 04/16/18 04/17/18 04/17/18 13:20 14:18 20:53 Plt Count Sodium Potassium Glucose Plasma Lactic Acid Raphael 2.5 H* Magnesium Troponin I 2.180 H* 2.300 H* Influenza Type A RNA 04/18/18 04/18/18 04/18/18 06:57 06:57 11:57 Plt Count Sodium 136 L Potassium 3.1 L Glucose 106 H Plasma Lactic Acid Raphael Magnesium 1.4 L Troponin I 1.640 H* Influenza Type A RNA - Diagnostic Findings Chest x-ray: image reviewed Assessment and Plan Assessment: Impression: #1 Anxiety/palpitations and patient found to be in atrial fibrillation with a rapid ventricular response. Currently on Cardizem drip at 10 mg per hour. Anticoagulated with Eliquis. #2 Troponin leak rule out non-ST segment elevation myocardial infarction. #3 acute influenza a infection. #4 Dyspnea secondary to above. #5 Remote history of chronic tobacco dependence. #6 History of CVA/TIA. #7 Hyperlipidemia. #8 History of hypertension. #9 History of obstructive sleep apnea. #10 Degenerative joint disease. #11 Spinal stenosis. #12 History of occluded right carotid artery. #13 History of Depression. Plan: The patient was seen and evaluated by Dr. Guillen. Chest x-ray and labs were reviewed. We will go ahead and initiate Zosyn and cefepime. Continue IV diuretics. Continue Tamiflu. Repeat a chest x-ray in the a.m. If significant improvement we'll he more towards congestive heart failure. We will continue to follow and make further recommendations based on her clinical status. I, the cosigning physician, performed a history & physical examination of the patient. Lungs sounds few scattered rhonchi, crackles in the posterior bases, diminished. Maintaining good O2 saturations in the 90s on room air. I discussed the assessment and plan of care with my nurse practitioner, Annika Johnson. I attest to the above note as dictated by her. Time with Patient: Greater than 30
[2018-04-18] MEDS: MAGNESIUM SULFATE-D5W PMX 1 GM in DEXTROSE/WATER 1 100ML.BAG IVPB SCH ×3 (15:34→21:05)
[2018-04-18] MEDS: PIPERACILLIN-TAZOBACTAM 3.375 GM in SODIUM CHLORIDE 0.9% 100 ML IVPB SCH ×2 (15:39→23:53)
[2018-04-18] MEDS ORDERED: ACETAMINOPHEN TAB 325 MG TAB PO PRN (16:39)
--- NOTE | 2018-04-18 17:11 | PN ---
PROGRESS NOTE DATE OF SERVICE: 04/18/2018 PRESENTING COMPLAINT: Cough. INTERVAL HISTORY: Patient presented with acute influenza A and paroxysmal atrial fibrillation with rapid ventricular rate. Also seems to be for an acute non-Q-wave CT with rise and fall in troponin. No chest pain. Sitting up, less congestion. REVIEW OF SYSTEMS: Done for constitutional, cardiovascular, GI, pulmonary; relevant findings as above. The patient tolerated diet. CURRENT MEDICATIONS: Current medications are reviewed that include Eliquis, Lipitor, IV cefepime, was on a Cardizem drip, melatonin, Lopressor, IV Zosyn. PHYSICAL EXAMINATION: On examination, temperature afebrile, pulse 111, respiration 20, blood pressure 97/55, pulse ox 92% on room air. GENERAL APPEARANCE: Sitting up, awake. EYES: Pupils equal. Conjunctivae normal. NECK: JVD not raised. Mass not palpable. RESPIRATORY: Effort increased. LUNGS: Slightly decreased breath sounds. CARDIOVASCULAR: First and second sounds normal. No edema. ABDOMEN: Soft, nontender. Liver and spleen not palpable. PSYCHIATRY: Alert and oriented x3. Mood and affect normal. INVESTIGATIONS: Troponin 2.1. 2.3, 1.6. BUN and creatinine are normal. ASSESSMENT: 1. Acute influenza A infection causing bilateral pneumonitis with sepsis picture on presentation. 2. Paroxysmal atrial fibrillation with rapid ventricular rate. 3. Possibly acute non-Q-wave myocardial infarction. 4. Gastroesophageal reflux disease. 5. Hyperlipidemia. 6. Essential hypertension. 7. Primary osteoarthritis. 8. Obstructive sleep apnea, uses CPAP machine. 9. Chronic spinal stenosis. 10.Restless legs syndrome. 11.Colonic diverticulosis. PLAN: Continue current medication and treatment plan. The patient empirically also on antibiotics. The patient is already on Eliquis and also on Tamiflu. Await further input from Cardiology. Repeat chest x-ray in the morning and labs. MMODL / IJN: [id number] /
--- NOTE | 2018-04-18 18:21 | P.PN ---
Subjective Progress Note Date: 04/18/18 This 78-year-old female is admitted to the hospital with new onset atrial fibrillation with RVR. Patient also has abnormal troponin values. The elevation of the troponins is not consistent with acute myocardial infarction pattern. Though underlying ischemic heart disease cannot be ruled out. Patient is still has significant wheezing and shortness of breath. She is being treated for flu. Patient is on IV Cardizem. She is also seen by computer systems technology instructor and was initiated on antibiotic therapy. We'll continue current medical therapy. Echocardiogram showed normal LV function. Her BNP level is normal for age. Objective - Vital Signs Vital signs: Vital Signs Temp 98.0 F 04/18/18 16:02 Pulse 61 04/18/18 16:02 Resp 20 04/18/18 16:02 BP 107/52 04/18/18 16:02 Pulse Ox 98 04/18/18 16:02 Intake & Output 04/17/18 04/18/18 04/18/18 18:59 06:59 18:59 Intake Total 960 240 Output Total 2 Balance 958 240 Intake: Oral 960 240 Output: Urine 2 Other: # Bowel Movements 1 - Exam GENERAL EXAM: Patient is alert and oriented and doesn't appear to be in any acute distress, appears weak and frail HEENT: Normocephalic. Normal reaction of pupils, equal size, normal range of extraocular motion. No erythema or exudates in the throat. NECK: No masses, no nuchal rigidity. CHEST: No chest wall deformity. LUNGS: Bilateral expiratory wheezing HEART: Irregular heart sounds ABDOMEN: No hepatosplenomegaly, normal bowel sounds, no guarding or rigidity. SKIN: No rashes CENTRAL NERVOUS SYSTEM: No focal deficits. EXTREMITIES: No cyanosis, clubbing or edema. - Labs CBC & Chem 7: 04/16/18 12:50 04/18/18 06:57 Labs: Abnormal Lab Results - Last 24 Hours (Table) 04/17/18 04/18/18 04/18/18 Range/Units 20:53 06:57 06:57 Sodium 136 L (137-145) mmol/L Potassium 3.1 L (3.5-5.1) mmol/L Glucose 106 H (74-99) mg/dL Magnesium 1.4 L (1.6-2.3) mg/dL Troponin I 2.300 H* (0.000-0.034) ng/mL 04/18/18 Range/Units 11:57 Sodium (137-145) mmol/L Potassium (3.5-5.1) mmol/L Glucose (74-99) mg/dL Magnesium (1.6-2.3) mg/dL Troponin I 1.640 H* (0.000-0.034) ng/mL Microbiology - Last 24 Hours (Table) 04/16/18 14:39 Blood Culture - Preliminary Blood No Growth after 48 hours Assessment and Plan (1) Troponin level elevated Current Visit: Yes Status: Acute Code(s): R74.8 - ABNORMAL LEVELS OF OTHER SERUM ENZYMES SNOMED Code(s): 688020452 (2) Atrial fibrillation with RVR Current Visit: Yes Status: Acute Code(s): I48.91 - UNSPECIFIED ATRIAL F IBRILLATION SNOMED Code(s): 075552698919524 (3) Influenza A Current Visit: Yes Status: Acute Code(s): J10.1 - FLU DUE TO OTH IDENT INFLUENZA VIRUS W OTH RESP MANIFEST SNOMED Code(s): 269951066 (4) Hypertension Current Visit: No Status: Acute Code(s): I10 - ESSENTIAL (PRIMARY) HYPERTENSION SNOMED Code(s): 32386132 Plan: Patient is still short of breath and wheezing. His seen by computer systems technology instructor and and tobacco therapies initiated. Patient is still redding fibrillation on IV Cardizem. Continue current medical therapy. Echo showed preserved LV function.
[2018-04-18] MEDS: DILTIAZEM 125 MG in SODIUM CHLORIDE 0.9% 100 ML IV SCH (21:04)
[2018-04-18] MEDS: MONTELUKAST 10 MG TAB PO SCH (21:08)
[2018-04-18] MEDS: ATORVASTATIN 10 MG TAB PO SCH (21:08)
[2018-04-18] MEDS: NORTRIPTYLINE 10 MG CAP PO SCH (21:09)
[2018-04-18] MEDS: PSYLLIUM HUSK 100% 6 GM PACKET PO SCH (21:15)
[2018-04-19] MEDS: DILTIAZEM 125 MG in SODIUM CHLORIDE 0.9% 100 ML IV SCH (00:04)
[2018-04-19 07:10] LABS: Basophils % (A) 0 %; Eosinophils # (A) 0.3 k/uL (0-0.7); Eosinophils % (A) 6 %; HGB 12.6 gm/dL (11.4-16.0); Hypochromasia Moderate; Lymphocytes # (A) 1.7 k/uL (1.0-4.8); Lymphocytes % (A) 34 %; MCH 27.5 pg (25.0-35.0); MCHC 31.5 g/dL (31.0-37.0); MCV 87.2 fL (80.0-100.0); Mean Platelet Volume 6.9; Monocytes # (A) 0.4 k/uL (0-1.0); Monocytes % (A) 8 %; Neutrophils # (A) 2.5 k/uL (1.3-7.7); Neutrophils % (A) 50 %; Platelet Count 147 k/uL (150-450); RBC 4.59 m/uL (3.80-5.40); RDW 14.5 % (11.5-15.5)
[2018-04-19 07:23] LABS: Calcium 8.9 mg/dL (8.4-10.2); Magnesium 2.1 mg/dL (1.6-2.3); Potassium 3.6 mmol/L (3.5-5.1)
--- NOTE | 2018-04-19 08:03 | XR ---
EXAMINATION TYPE: XR chest 1V portable DATE OF EXAM: 04/19/2018 COMPARISON: Prior chest x-ray 04/16/2018 HISTORY: Congestive heart failure TECHNIQUE: Single frontal view of the chest is obtained. FINDINGS: There is improvement in lung volume and aeration. No pneumothorax or evident effusion. Hea rt size is stable. Patient is rotated, there are cardiac leads. IMPRESSION: Improved aeration, volume status. Follow-up PA and lateral chest x-ray recommended.
[2018-04-19] MEDS: METOPROLOL TARTRATE 25 MG TAB PO SCH ×2 (09:24→21:52)
[2018-04-19] MEDS: ESCITALOPRAM 20 MG TAB PO SCH (09:24)
[2018-04-19] MEDS: FUROSEMIDE 10 MG/ML 4 ML VIAL IV SCH (09:24)
[2018-04-19] MEDS: LOSARTAN 50 MG TAB PO SCH (09:24)
[2018-04-19] MEDS: PIPERACILLIN-TAZOBACTAM 3.375 GM in SODIUM CHLORIDE 0.9% 100 ML IVPB SCH ×3 (09:24→23:55)
[2018-04-19] MEDS: DOXAZOSIN 4 MG TAB PO SCH (09:25)
[2018-04-19] MEDS: LORATADINE 10 MG TAB PO SCH (09:25)
[2018-04-19] MEDS: FAMOTIDINE 20 MG TAB PO SCH (09:25)
[2018-04-19] MEDS: APIXABAN 5 MG TAB PO SCH ×2 (09:25→21:52)
[2018-04-19] MEDS ORDERED: POTASSIUM CHLORIDE ER 20 MEQ TAB.ER PO SCH (10:00)
[2018-04-19] MEDS ORDERED: methylPREDNISolone 4 MG TAB TAPER PO SCH (10:15)
--- NOTE | 2018-04-19 11:42 | P.PN ---
Subjective Progress Note Date: 04/19/18 Principal diagnosis: A. fib RVR, influenza A infection, acute congestive heart failure This is a very pleasant 78-year-old female patient who follows with Dr. Wallace as her primary care physician. She has a history of paroxysmal atrial fibrillation anticoagulated with Eliquis, hyperlipidemia, hypertension, depression,obstructive sleep apnea, spinal stenosis, right carotid artery stenosis, restless leg syndrome, seasonal ALLERGIES. She does have a 40 year smoking history however quit in 2001. She has not been seen by a data reviewer in the past. No home oxygen or inhalers. she presented here 2 days ago with feelings of anxiety and palpitations. She was found to be in atrial fibrillation with a rapid ventricular response and was initiated on a Cardizem drip currently at 5 mg per hour. She was also found to have influenza A infection and was started on Tamiflu. We were consulted today by cardiology as they had ruled out congestive heart failure. Echocardiogram revealed preserved left ventricular systolic function with ejection fraction 55-60%. She did have significant shortness of breath and wheezing. Chest x-ray does show evidence of patchy infiltrates bilaterally. White count was 9.3. Hemoglobin 14.0. Creatinine 0.94. peak troponin 2.30. ProBNP 1150. The patient is seen today in consultation on the selective care unit. She is currently awake and alert. She is quite fatigued and weak. She does have some audible wheezing. She continues to maintain O2 saturations in the 90s on room air. Temperature 99.2. Slightly tachycardic in the 110s. Blood pressure stable. Cardizem drip remains at 10 mg per hour. Blood cultures revealing no growth. On 04/19/2018 patient seen in follow-up elective care unit, she is resting in bed, no acute distress, continues today risk, currently on Lasix of 40 mg every 12 hours, today's chest x-ray shows improvement in the appearance of interstitial edema, improved aeration of volume status. Weight down by 1.6 kg. Room air pulse ox is 94%, afebrile, no complaints of chest pain. Patient has coarse crackles at bilateral bases, and a congested cough, and coughing spells. Better coverage with Zosyn and cefepime, we will stop the cefepime and continue with Zosyn. His labs have been reviewed, and CBC is relatively unremarkable and exception with the platelet count of 147, lites are within normal limits, BUN is 20 creatinine is 1.09. She is on oral anticoagulation in the form of Eliquis, she remains in atrial fibrillation with a rate of 70, remains on Cardizem drip at 10 mg per hour, continues on Tamiflu. Objective - Vital Signs Vital signs: Vital Signs Temp 97.7 F 04/19/18 09:35 Pulse 64 04/19/18 09:35 Resp 18 04/19/18 09:35 BP 119/60 04/19/18 09:35 Pulse Ox 94 L 04/19/18 09:35 Intake & Output 04/18/18 04/19/18 04/19/18 17:59 06:59 18:59 Intake Total 120 Balance 120 Weight Intake: Intake, IV Titration Amount Diltiazem 125 mg In Sodium Chloride 0.9% 100 ml @ 10 MG/HR 10 mls/hr IV .[id number] PENDING SALE TO [facility] Rx#: [id number] Oral 120 - Exam GENERAL EXAM: Alert, pleasant, 78-year-old white female on room air, with a pulse ox of 94% comfortable in no apparent distress. HEAD: Normocephalic/atraumatic. EYES: Normal reaction of pupils, equal size. Conjunctiva pink, sclera white. NOSE: Clear with pink turbinates. THROAT: No erythema or exudates. NECK: No masses, no JVD, no thyroid enlargement, no adenopathy. CHEST: No chest wall deformity. Symmetrical expansion. LUNGS: Equal air entry with bibasilar crackles, congested cough, frequent coughing spells CVS: Regular rate and rhythm, normal S1 and S2, no gallops, no murmurs, no rubs ABDOMEN: Soft, nontender. No hepatosplenomegaly, normal bowel sounds, no guarding or rigidity. EXTREMITIES: No clubbing, no edema, no cyanosis, 2+ pulses and upper and lower extremities. MUSCULOSKELETAL: Muscle strength and tone normal. SPINE: No scoliosis or deformity SKIN: No rashes CENTRAL NERVOUS SYSTEM: Alert and oriented -3. No focal deficits, tone is normal in all 4 extremities. PSYCHIATRIC: Alert and oriented -3. Appropriate affect. Intact judgment and insight. - Labs CBC & Chem 7: 04/19/18 06:38 04/19/18 06:38 Labs: Abnormal Lab Results - Last 24 Hours (Table) 04/18/18 04/18/18 04/19/18 Range/Units 06:57 11:57 06:38 Plt Count (150-450) k/uL BUN 20 H (7-17) mg/dL Creatinine 1.09 H (0.52-1.04) mg/dL Magnesium 1.4 L (1.6-2.3) mg/dL Troponin I 1.640 H* (0.000-0.034) ng/mL 04/19/18 Range/Units 06:38 Plt Count 147 L (150-450) k/uL BUN (7-17) mg/dL Creatinine (0.52-1.04) mg/dL Magnesium (1.6-2.3) mg/dL Troponin I (0.000-0.034) ng/mL Microbiology - Last 24 Hours (Table) 04/16/18 14:39 Blood Culture - Preliminary Blood No Growth after 48 hours Assessment and Plan Plan: Assessment: #1 Atrial fibrillation with a rapid ventricular response. Currently on Cardizem drip at 10 mg per hour. Anticoagulated with Eliquis. #2 Troponin leak rule out non-ST segment elevation myocardial infarction. #3 acute influenza a infection. #4 Dyspnea secondary to above. #5 Acute congestive heart failure diastolic dysfunction, cardiogram showed EF between 55-60%, moderate MR, no evidence of PAH #6 Remote history of chronic tobacco dependence. #7 History of CVA/TIA. #8 Hyperlipidemia. #9 History of hypertension. #10 History of obstructive sleep apnea. #11 Degenerative joint disease. #12 Spinal stenosis. #13 History of occluded right carotid artery. #14 History of Depression. Plan: Continue Tamiflu, and Zosyn, will discontinue cefepime. We will add Tessalon Perles and Medrol Dosepak, continue with IV diuresis, today's chest x-ray showed significant improvement in terms of volume status, and aeration. We will obtain a follow-up chest x-ray tomorrow morning. Continue to follow I performed a history & physical examination of the patient and discussed their management with my nurse practitioner, Denise Birmingham. I reviewed the nurse practitioner's note and agree with the documented findings and plan of care. Lung sounds are positive for coarse rales at the lung patton. The findings and the impression was discussed with the patient. I attest to the documentation by the nurse practitioner. Time with Patient: Less than 30
[2018-04-19] MEDS: OSELTAMIVIR 60 MG/10 ML ORAL SYRINGE PO SCH ×2 (12:30→21:56)
[2018-04-19] MEDS: CEFEPIME 1 GM in SODIUM CHLORIDE 0.9% 50 ML IVPB SCH ×2 (13:25→13:26)
[2018-04-19] MEDS: methylPREDNISolone 4 MG TAB TAPER PO SCH (13:51)
--- NOTE | 2018-04-19 13:52 | P.PN ---
Subjective This is a pleasant 78-year-old female past medical history significant for carotid artery disease, hypertension, dyslipidemia, obstructive sleep apnea and paroxysmal atrial fibrillation on long-term anticoagulation. She follows in the office with Dr. Benitez. She is seen and examined resting comfortably laying flat in bed in no acute distress. IV Cardizem has been discontinued. She has converted to sinus mechanism. Currently maintained on Eliquis 5 mg twice a day, atorvastatin 10 mg daily, Lasix 40 mg IV twice a day, losartan 100 mg daily, metoprolol 25 mg twice a day. She has been seen in consultation by pulmonary service and started on antibiotics. Laboratory data reviewed, WBC 5, hemoglobin 12.6, platelets 147, sodium 138, potassium 3.6, creatinine 1.09 troponin 1.64. Blood pressure 102/57 heart rate 62 afebrile maintaining oxygen saturation on room air. Weight is down 2 kg from admission. Chest x-ray obtained this morning reveals improved aeration status. GENERAL: This is a 78-year-old female in mild respiratory distress at the time of my examination. HEENT: Head is atraumatic, normocephalic. Pupils are equal, round. Sclerae anicteric. Conjunctivae are clear. Mucous membranes of the mouth are moist. Neck is supple. There is no jugular venous distention. No carotid bruit is heard. LUNGS: Expiratory wheezes throughout. No rales or rhonchi. No chest wall tenderness is noted on palpation or with deep breathing. HEART: Regular rate and rhythm with systolic ejection murmur at the left sternal border, no rubs or gallops. S1 and S2 heard. EXTREMITIES: No evidence of peripheral edema and no calf tenderness noted. ASSESSMENT Influenza A Lactic acidosis Hypomagnesemia Paroxysmal atrial fibrillation on long-term anticoagulation, currently maintaining sinus mechanism Acute on chronic systolic heart failure Hypertension Dyslipidemia History of nonischemic cardiomyopathy Right carotid artery stenosis Valvular heart disease, mitral and tricuspid regurgitation PLAN Continue current medical regimen. Repeat NT proBNP level. Possibly transition to PO diuretics in the next 24 hours if she continues to improve. Nurse Practitioner note has been reviewed, I agree with a documented findings an d plan of care. Patient was seen and examined. Objective - Vital Signs Vital signs: Vital Signs Temp 98.0 F 04/19/18 12:40 Pulse 62 04/19/18 12:40 Resp 18 03/10/19 12:40 BP 102/57 04/19/18 12:40 Pulse Ox 92 L 04/19/18 12:40 Intake & Output 04/18/18 04/19/18 04/19/18 17:59 06:59 18:59 Intake Total 360 Balance 360 Weight Intake: Intake, IV Titration Amount Diltiazem 125 mg In Sodium Chloride 0.9% 100 ml @ 10 MG/HR 10 mls/hr IV .[id number] [facility] Rx#: [id number] Oral 360 - Labs CBC & Chem 7: 04/19/18 06:38 04/19/18 06:38 Labs: Abnormal Lab Results - Last 24 Hours (Table) 04/18/18 04/18/18 04/19/18 Range/Units 06:57 11:57 06:38 Plt Count (150-450) k/uL BUN 20 H (7-17) mg/dL Creatinine 1.09 H (0.52-1.04) mg/dL Magnesium 1.4 L (1.6-2.3) mg/dL Troponin I 1.640 H* (0.000-0.034) ng/mL 04/19/18 Range/Units 06:38 Plt Count 147 L (150-450) k/uL BUN (7-17) mg/dL Creatinine (0.52-1.04) mg/dL Magnesium (1.6-2.3) mg/dL Troponin I (0.000-0.034) ng/mL Microbiology - Last 24 Hours (Table) 04/16/18 14:39 Blood Culture - Preliminary Blood No Growth after 48 hours
[2018-04-19] MEDS: BENZONATATE 100 MG CAP PO SCH ×2 (15:24→21:53)
[2018-04-19] MEDS: ALPRAZolam 0.25 MG TAB PO PRN ×2 (15:24→21:59)
--- NOTE | 2018-04-19 17:44 | PN ---
PROGRESS NOTE DATE OF SERVICE: April 19, 2018. PRESENTING COMPLAINT: Tired. INTERVAL HISTORY: This patient presented with acute influenza A and paroxysmal atrial fibrillation with rapid ventricular rate, also ruled in for an acute non-Q-wave PR. Overall feeling better, sitting up. The patient has been on IV Lasix per Cardiology. Creatinine has been going up. REVIEW OF SYSTEMS: Done for constitutional, cardiovascular, GI, pulmonary; relevant findings as above. CURRENT MEDICATIONS: Reviewed that include Eliquis, Cozaar, Medrol Dosepak, Lopressor, IV Zosyn, IV Lasix. PHYSICAL EXAMINATION: VITAL SIGNS: Temperature 98, pulse 57, respiration 16, blood pressure 125/56. Pulse ox 94 percent on room air. GENERAL APPEARANCE: Sitting up awake. EYES: Pupils equal. Conjunctivae normal. NECK: JVD not raised. Mass not palpable. RESPIRATORY: Effort increased. LUNGS: Slightly decreased breath sounds. CARDIOVASCULAR: 1st and 2nd sounds normal. No edema. ABDOMEN: Soft, nontender. Liver and spleen not palpable. PSYCHIATRY: Alert and oriented x3. Mood and affect normal. INVESTIGATIONS: White count 5, hemoglobin 12.6, potassium 3.6, BUN 20, creatinine 1.09. ProBNP 445. ASSESSMENT: 1. Acute influenza A causing bilateral pneumonitis with sepsis picture on presentation. 2. Paroxysmal atrial fibrillation rapid ventricular rate now patient is sinus rhythm. 3. Possible acute non-Q-wave myocardial infarction. 4. Gastroesophageal reflux disease. 5. Hyperlipidemia. 6. Essential hypertension. 7. Primary osteoarthritis. 8. Obstructive sleep apnea uses CPAP machine. 9. Chronic spinal stenosis. 10.Restless legs syndrome. 11.Colonic diverticulosis. 12.Acute renal failure appears prerenal with a bump in creatinine. 13.Moderate mitral regurgitation, nonrheumatic. 14.Hypertensive heart disease. PLAN: Continue current medication and treatment plan. The patient's 2D echo showed EF of 55- 60 percent. We will DC the Lasix today and evaluate renal function clinically how the patient is doing and patient depending on tomorrow can be switched over to oral Lasix if needed tomorrow. MMODL / IJN: [id number] /
[2018-04-19] MEDS: ATORVASTATIN 10 MG TAB PO SCH (21:52)
[2018-04-19] MEDS: NORTRIPTYLINE 10 MG CAP PO SCH (21:52)
[2018-04-19] MEDS: MONTELUKAST 10 MG TAB PO SCH (21:52)
[2018-04-19] MEDS: PSYLLIUM HUSK 100% 6 GM PACKET PO SCH (21:53)
[2018-04-20 06:42] LABS: Calcium 9.5 mg/dL (8.4-10.2); Potassium 3.7 mmol/L (3.5-5.1)
[2018-04-20] MEDS: PIPERACILLIN-TAZOBACTAM 3.375 GM in SODIUM CHLORIDE 0.9% 100 ML IVPB SCH ×3 (09:57→23:42)
[2018-04-20] MEDS: DOXAZOSIN 4 MG TAB PO SCH (09:57)
[2018-04-20] MEDS: FAMOTIDINE 20 MG TAB PO SCH (09:57)
[2018-04-20] MEDS: ESCITALOPRAM 20 MG TAB PO SCH (09:57)
[2018-04-20] MEDS: LORATADINE 10 MG TAB PO SCH (09:58)
[2018-04-20] MEDS: METOPROLOL TARTRATE 25 MG TAB PO SCH ×2 (09:58→21:04)
[2018-04-20] MEDS: BENZONATATE 100 MG CAP PO SCH ×3 (09:58→21:04)
[2018-04-20] MEDS: LOSARTAN 50 MG TAB PO SCH (09:58)
[2018-04-20] MEDS: APIXABAN 5 MG TAB PO SCH ×2 (09:58→21:04)
--- NOTE | 2018-04-20 10:36 | XR ---
EXAMINATION TYPE: XR chest 2V DATE OF EXAM: 04/20/2018 COMPARISON: Prior chest x-ray 04/19/2018 HISTORY: Follow-up, abnormal chest x-ray TECHNIQUE: Frontal and lateral views of the chest are obtained. FINDINGS: There is no focal air space opacity, pleural effusion, or pneumothorax seen. The cardiac silhouette size is within normal limits. The osseous structures are intact. Postop changes noted to the right shoulder. There are cardiac leads. Patient is rotated. Mild interstitial prominence presen t in the upper lobes. Surgical clips present in the right upper quadrant. IMPRESSION: Findings are similar to prior exam. Mild interstitial changes.
[2018-04-20] MEDS: OSELTAMIVIR 60 MG/10 ML ORAL SYRINGE PO SCH ×2 (11:05→21:20)
[2018-04-20] MEDS: methylPREDNISolone 4 MG TAB TAPER PO SCH (11:06)
--- NOTE | 2018-04-20 14:31 | P.PN ---
Subjective Progress Note Date: 04/20/18 This is a pleasant 78-year-old female past medical history significant for carotid artery disease, hypertension, dyslipidemia, obstructive sleep apnea and paroxysmal atrial fibrillation on long-term anticoagulation. She follows in the office with Dr. Benitez. Patient is currently here with influenza A, she was noted to have abnormality in troponins not consistent with myocardial infarction pattern. She was seen and examined today, still has a persistent cough but overall is feeling much better. Anticipating possible discharge home in the morning. We will put the patient on 40 mg of oral diuretics daily today. Objective - Vital Signs Vital signs: Vital Signs Temp 98.2 F 04/20/18 11:10 Pulse 60 04/20/18 11:11 Resp 17 04/20/18 11:11 BP 127/65 04/20/18 11:10 Pulse Ox 95 04/20/18 11:10 Intake & Output 04/19/18 04/20/18 04/20/18 18:59 06:59 18:59 Intake Total 360 620 Balance 360 620 Weight 69.1 kg Intake: Oral 360 620 Other: Voiding Method Toilet Toilet - Exam HEENT: Head is atraumatic, normocephalic. Pupils are equal, round. Sclerae anicteric. Conjunctivae are clear. Mucous membranes of the mouth are moist. Neck is supple. There is no jugular venous distention. No carotid bruit is heard. LUNGS: Expiratory wheezes throughout. No rales or rhonchi. No chest wall tenderness is noted on palpation or with deep breathing. HEART: Regular rate and rhythm with systolic ejection murmur at the left sternal border, no rubs or gallops. S1 and S2 heard. EXTREMITIES: No evidence of peripheral edema and no calf tenderness noted. - Labs CBC & Chem 7: 04/19/18 06:38 04/20/18 05:40 Labs: Abnormal Lab Results - Last 24 Hours (Table) 04/20/18 Range/Units 05:40 BUN 21 H (7-17) mg/dL Glucose 138 H (74-99) mg/dL Microbiology - Last 24 Hours (Table) 04/16/18 14:39 Blood Culture - Preliminary Blood No Growth after 72 hours Assessment and Plan Plan: ASSESSMENT #1 Influenza A #2 Lactic acidosis #3 Hypomagnesemia #4 Paroxysmal atrial fibrillation on long-term anticoagulation, currently maintaining sinus mechanism #5 Acute on chronic systolic heart failure #6 Hypertension #7 Dyslipidemia #8 History of nonischemic cardiomyopathy #9 Right carotid artery stenosis #10 Valvular heart disease, mitral and tricuspid regurgitation #11 abnormality in troponin, not consistent with acute coronary syndrome. Plan From cardiology's perspective, we will add 40 mg daily of oral Lasix to the medication regime. Plan for possible discharge home in 24 hours if stable. DNP note has been reviewed, I agree with a documented findings and plan of care. Patient was seen and examined.
--- NOTE | 2018-04-20 14:35 | P.PN ---
Subjective Progress Note Date: 04/20/18 Principal diagnosis: A. fib RVR, influenza A infection, acute congestive heart failure This is a very pleasant 78-year-old female patient who follows with Dr. Wallace as her primary care physician. She has a history of paroxysmal atrial fibrillation anticoagulated with Eliquis, hyperlipidemia, hypertension, depression,obstructive sleep apnea, spinal stenosis, right carotid artery stenosis, restless leg syndrome, seasonal ALLERGIES. She does have a 40 year smoking history however quit in 2001. She has not been seen by a strike warfare/missile systems officer in the past. No home oxygen or inhalers. she presented here 2 days ago with feelings of anxiety and palpitations. She was found to be in atrial fibrillation with a rapid ventricular response and was initiated on a Cardizem drip currently at 5 mg per hour. She was also found to have influenza A infection and was started on Tamiflu. We were consulted today by cardiology as they had ruled out congestive heart failure. Echocardiogram revealed preserved left ventricular systolic function with ejection fraction 55-60%. She did have significant shortness of breath and wheezing. Chest x-ray does show evidence of patchy infiltrates bilaterally. White count was 9.3. Hemoglobin 14.0. Creatinine 0.94. peak troponin 2.30. ProBNP 1150. The patient is seen today in consultation on the selective care unit. She is currently awake and alert. She is quite fatigued and weak. She does have some audible wheezing. She continues to maintain O2 saturations in the 90s on room air. Temperature 99.2. Slightly tachycardic in the 110s. Blood pressure stable. Cardizem drip remains at 10 mg per hour. Blood cultures revealing no growth. On 04/19/2018 patient seen in follow-up elective care unit, she is resting in bed, no acute distress, continues today risk, currently on Lasix of 40 mg every 12 hours, today's chest x-ray shows improvement in the appearance of interstitial edema, improved aeration of volume status. Weight down by 1.6 kg. Room air pulse ox is 94%, afebrile, no complaints of chest pain. Patient has coarse crackles at bilateral bases, and a congested cough, and coughing spells. Better coverage with Zosyn and cefepime, we will stop the cefepime and continue with Zosyn. His labs have been reviewed, and CBC is relatively unremarkable and exception with the platelet count of 147, lites are within normal limits, BUN is 20 creatinine is 1.09. She is on oral anticoagulation in the form of Eliquis, she remains in atrial fibrillation with a rate of 70, remains on Cardizem drip at 10 mg per hour, continues on Tamiflu. On 04/20/2018 patient seen in follow-up on selective care unit. She is on room air, her pulse ox of 95%, afebrile, respirations a benign and nonlabored. Has some occasional cough, history was started patient on Tessalon Perles, and Medrol Dosepak, on antibiotic coverage in the form of Zosyn, today's labs have been reviewed, BNP was done, electrolytes are within normal limits, BUN is 21 and creatinine 0.76. Lung sounds are diminished, no rhonchi, no wheezing. His chest x-ray shows mild interstitial changes. She is on oral Lasix 40 mg daily per cardiology,no chest pain. Oral anticoagulation and form of Eliquis. Objective - Vital Signs Vital signs: Vital Signs Temp 98.2 F 04/20/18 11:10 Pulse 60 04/20/18 11:11 Resp 17 04/20/18 11:11 BP 127/65 04/20/18 11:10 Pulse Ox 95 04/20/18 11:10 Intake & Output 04/19/18 04/20/18 04/20/18 18:59 06:59 18:59 Intake Total 360 620 Balance 360 620 Weight 69.1 kg Intake: Oral 360 620 Other: Voiding Method Toilet Toilet - Exam GENERAL EXAM: Alert, pleasant, 78-year-old white female on room air, with a pulse ox of 94% comfortable in no apparent distress. HEAD: Normocephalic/atraumatic. EYES: Normal reaction of pupils, equal size. Conjunctiva pink, sclera white. NOSE: Clear with pink turbinates. THROAT: No erythema or exudates. NECK: No masses, no JVD, no thyroid enlargement, no adenopathy. CHEST: No chest wall deformity. Symmetrical expansion. LUNGS: Equal air entry with diminished breath sounds, rhonchi, no wheezing CVS: Regular rate and rhythm, normal S1 and S2, no gallops, no murmurs, no rubs ABDOMEN: Soft, nontender. No hepatosplenomegaly, normal bowel sounds, no guarding or rigidity. EXTREMITIES: No clubbing, no edema, no cyanosis, 2+ pulses and upper and lower extremities. MUSCULOSKELETAL: Muscle strength and tone normal. SPINE: No scoliosis or deformity SKIN: No rashes CENTRAL NERVOUS SYSTEM: Alert and oriented -3. No focal deficits, tone is normal in all 4 extremities. PSYCHIATRIC: Alert and oriented -3. Appropriate affect. Intact judgment and insight. - Labs CBC & Chem 7: 04/19/18 06:38 04/20/18 05:40 Labs: Abnormal Lab Results - Last 24 Hours (Table) 04/20/18 Range/Units 05:40 BUN 21 H (7-17) mg/dL Glucose 138 H (74-99) mg/dL Microbiology - Last 24 Hours (Table) 04/16/18 14:39 Blood Culture - Preliminary Blood No Growth after 72 hours Assessment and Plan Plan: Assessment: #1 Atrial fibrillation with a rapid ventricular response. Currently on Cardizem drip at 10 mg per hour. Anticoagulated with Eliquis. #2 Troponin leak rule out non-ST segment elevation myocardial infarction. #3 acute influenza a infection. #4 Dyspnea secondary to above. #5 Acute congestive heart failure diastolic dysfunction, cardiogram showed EF between 55-60%, moderate MR, no evidence of PAH #6 Remote history of chronic tobacco dependence. #7 History of CVA/TIA. #8 Hyperlipidemia. #9 History of hypertension. #10 History of obstructive sleep apnea. #11 Degenerative joint disease. #12 Spinal stenosis. #13 History of occluded right carotid artery. #14 History of Depression. Plan: Continue with current medical treatment, Medrol Dosepak, continue current antibiotic coverage, nebulized bronchodilators, chest x-ray has been reviewed with Dr. Mahajan with mild interstitial changes consistent with acute congestive heart failure. She is on oral Lasix. Still has some coughing, but improving, no major chest congestion. Discussed possibility of bronchoscopy with Dr. Raudel de la rosa, and he feels that patient would not benefit from bronchoscopy at this time, will continue with current medical treatment. I performed a history & physical examination of the patient and discussed their management with my nurse practitioner, Denise Birmingham. I reviewed the nurse practitioner's note and agree with the documented findings and plan of care. Lung sounds are positive for coarse rales at the lung patton. The findings and the impression was discussed with the patient. I attest to the documentation by the nurse practitioner. Time with Patient: Less than 30
[2018-04-20] MEDS: FUROSEMIDE 40 MG TAB PO SCH (14:57)
[2018-04-20] MEDS: MONTELUKAST 10 MG TAB PO SCH (21:03)
[2018-04-20] MEDS: ALPRAZolam 0.25 MG TAB PO PRN (21:04)
[2018-04-20] MEDS: ATORVASTATIN 10 MG TAB PO SCH (21:04)
[2018-04-20] MEDS: PSYLLIUM HUSK 100% 6 GM PACKET PO SCH (21:04)
[2018-04-20] MEDS: NORTRIPTYLINE 10 MG CAP PO SCH (21:20)
[2018-04-21 06:57] LABS: Calcium 9.6 mg/dL (8.4-10.2); Potassium 3.2 mmol/L (3.5-5.1)
[2018-04-21] MEDS ORDERED: Potassium Replacement Protocol 1 EACH MISC MISCELLANE PRN (07:53)
[2018-04-21] MEDS: ESCITALOPRAM 20 MG TAB PO SCH (08:28)
[2018-04-21] MEDS: APIXABAN 5 MG TAB PO SCH (08:28)
[2018-04-21] MEDS: LOSARTAN 50 MG TAB PO SCH (08:28)
[2018-04-21] MEDS: POTASSIUM CHLORIDE ER 20 MEQ TAB.ER PO SCH ×2 (08:28→11:09)
[2018-04-21] MEDS: FUROSEMIDE 40 MG TAB PO SCH (08:28)
[2018-04-21] MEDS: METOPROLOL TARTRATE 25 MG TAB PO SCH (08:28)
[2018-04-21] MEDS: BENZONATATE 100 MG CAP PO SCH ×2 (08:28→15:21)
[2018-04-21] MEDS: LORATADINE 10 MG TAB PO SCH (08:28)
[2018-04-21] MEDS: DOXAZOSIN 4 MG TAB PO SCH (08:28)
[2018-04-21] MEDS: FAMOTIDINE 20 MG TAB PO SCH (08:28)
[2018-04-21] MEDS: OSELTAMIVIR 60 MG/10 ML ORAL SYRINGE PO SCH (11:02)
[2018-04-21] MEDS: PIPERACILLIN-TAZOBACTAM 3.375 GM in SODIUM CHLORIDE 0.9% 100 ML IVPB SCH ×2 (11:02→16:21)
[2018-04-21] MEDS: methylPREDNISolone 4 MG TAB TAPER PO SCH (11:03)
[2018-04-21 11:50] VITALS: BP 131/72; RESP 16; TEMP 98.2
--- NOTE | 2018-04-21 14:15 | P.PN ---
Subjective Progress Note Date: 04/21/18 This is a pleasant 78-year-old female past medical history significant for carotid artery disease, hypertension, dyslipidemia, obstructive sleep apnea and paroxysmal atrial fibrillation on long-term anticoagulation. She follows in the office with Dr. Benitez. Patient is currently here with influenza A, she was noted to have abnormality in troponins not consistent with myocardial infarction pattern. She was seen and examined today, still has a persistent cough but overall is feeling much better. Anticipating possible discharge home in the morning. We will put the patient on 40 mg of oral diuretics daily today. 04/21/2018 Patient seen and examined today, continues to have cough however significantly improved. Blood pressure 130/60 with a heart rate in the 60s. Potassium 3.2 today which we will replace, BUN 22 and creatinine 0.7, magnesium 1.6. Objective - Vital Signs Vital signs: Vital Signs Temp 98.2 F 04/21/18 11:49 Pulse 60 04/21/18 11:51 Resp 16 04/21/18 11:51 BP 131/72 04/21/18 11:49 Pulse Ox 93 L 04/21/18 11:49 Intake & Output 04/20/18 04/21/18 04/21/18 18:59 06:59 18:59 Intake Total 830 30 510 Balance 830 30 510 Weight 68.3 kg Intake: IV 10 30 10 Invasive Line 3 10 30 10 Oral 820 500 Other: Voiding Method Toilet Toilet Toilet - Exam HEENT: Head is atraumatic, normocephalic. Pupils are equal, round. Sclerae anicteric. Conjunctivae are clear. Mucous membranes of the mouth are moist. Neck is supple. There is no jugular venous distention. No carotid bruit is heard. LUNGS: Expiratory wheezes throughout. No rales or rhonchi. No chest wall tenderness is noted on palpation or with deep breathing. HEART: Regular rate and rhythm with systolic ejection murmur at the left sternal border, no rubs or gallops. S1 and S2 heard. EXTREMITIES: No evidence of peripheral edema and no calf tenderness noted. - Labs CBC & Chem 7: 04/19/18 06:38 04/21/18 06:10 Labs: Abnormal Lab Results - Last 24 Hours (Table) 04/21/18 Range/Units 06:10 Potassium 3.2 L (3.5-5.1) mmol/L BUN 22 H (7-17) mg/dL Microbiology - Last 24 Hours (Table) 04/16/18 14:39 Blood Culture - Preliminary Blood No Growth after 96 hours Assessment and Plan Plan: ASSESSMENT #1 Influenza A #2 Lactic acidosis #3 Hypomagnesemia #4 Paroxysmal atrial fibrillation on long-term anticoagulation, currently maintaining sinus mechanism #5 Acute on chronic systolic heart failure #6 Hypertension #7 Dyslipidemia #8 History of nonischemic cardiomyopathy #9 Right carotid artery stenosis #10 Valvular heart disease, mitral and tricuspid regurgitation #11 abnormality in troponin, not consistent with acute coronary syndrome. Plan From cardiology's perspective, patient may be able to be discharged home today, we will replace the potassium and magnesium. Follow-up appointment in the office post discharge.
[2018-04-21] MEDS ORDERED: POTASSIUM CHLORIDE ER 20 MEQ TAB.ER PO STA (14:33)
[2018-04-21] MEDS: MAGNESIUM SULFATE-D5W PMX 1 GM in DEXTROSE/WATER 1 100ML.BAG IVPB SCH ×2 (15:19→16:18)
--- NOTE | 2018-04-21 15:52 | PN ---
PROGRESS NOTE DATE OF SERVICE: 04/21/2018 This is a 78-year-old female with a history of atrial fibrillation and rapid ventricular response. The patient also has a history of a troponin leak, acute influenza infection, shortness of breath and some congestive heart failure, primarily diastolic in nature. She also has a history of remote tobacco use, CVA, hyperlipidemia, hypertension, sleep apnea syndrome, DJD, spinal stenosis, occluded right carotid artery, and a history of depression. The patient is doing much better. We do not believe the patient would benefit from bronchoscopy at this time. Her breathing has improved. She is not receiving any supplemental oxygen. She is coughing a bit but not producing much phlegm. We will have her follow up with one of my partners in the office. From the cardiac standpoint, she is much more stable, and apparently she has been cleared by Cardiology to be discharged. Currently she has no major complaints other than cough. Again, she is not producing any phlegm. She is not short of breath. There is no chest pain or chest discomfort. Current vital signs include temperature 98.2, heart rate 60, respiratory rate 16, blood pressure 131/72, mean 91, and room-air saturation between 93% and 96%. She appears in no acute distress. HEENT examination is grossly unremarkable. Mucous membranes are moist. No oral lesions. Neck is supple. Full range of motion. No adenopathy or thyromegaly. Neck veins are flat. Cardiovascular examination reveals regular rhythm and rate. Heart rate 60. S1, S2 normal. No S3, S4, murmur. Lungs are relatively clear. Breath sounds are equal bilaterally. There are no significant wheezes or crackles. There are a few scattered rhonchi. Breath sounds are equal bilaterally. Abdomen is soft. Bowel sounds are heard. Extremities are intact. No cyanosis, clubbing or edema. Skin without rash. Neurologic examination is brief but nonfocal. Labs are reviewed. Sodium 139, potassium 3.2, chloride 105, CO2 of 28. BUN and creatinine were 22 and 0.78. The rest of the labs look okay. Microbiology is negative. No recent chest x-ray to review. Her chest x-ray from April 20 shows evidence of mild interstitial changes. ASSESSMENT: 1. Atrial fibrillation with rapid ventricular response, controlled. 2. Mild troponin leak. Rule out [id number]-elevation myocardial infarction. 3. Treated acute influenza infection. 4. Shortness of breath secondary to atrial fibrillation, influenza, mild congestive heart failure and possible mild acute bronchitis. 5. Diastolic dysfunction. 6. History of cerebrovascular accident. 7. Previous history of chronic tobacco dependence. 8. Hyperlipidemia. 9. History of hypertension. 10.History of sleep apnea syndrome. 11.Degenerative joint disease. 12.Spinal stenosis. 13.History of occluded right carotid artery. 14.History of depression. PLAN: The patient is doing well. From our perspective, the patient could be discharged home. The patient was explained what we thought was going on with her. We spent a great deal of time explaining why she was having the issues she did. The patient will follow up with myself or Dr. Guillen in the office. Additional recommendations and suggestions are forthcoming. No need for bronchoscopy at this time. The patient's breathing has improved. Her major complaint is cough. She is not requiring any supplemental oxygen. We will continue to follow. MMODL / IJN: [id number] /
[2018-04-21 16:11] VITALS: PULSE 62
--- NOTE | 2018-04-22 07:15 | CDI ---
Documentation Clarification Form Date: 04/22/2018 7:05:23 AM From: Davida Silverman Phone: If you have a question about this query, please contact Lian Taylor Room Service Waiter/Waitress at [phone] between 8am and 5pm. Admit Date: 04/16/2018 2:11:00 PM Patient Name: Lizzie East Visit Number: [id number] Discharge Date: 04/21/2018 6:18:00 PM ATTENTION: The Clinical Documentation Specialists (CDI) and [facility] Coding Staff appreciate your assistance in clarifying documentation. Please respond to the clarification below the line at the bottom and electronically sign. The CDI & [facility] Coding staff will review the response and follow-up if needed. Please note: Queries are made part of the Legal Health Record. If you have any questions, please contact the author of this message via ITS. Dr. Wilson Jauregui Conflicting documentation has been found in the medical record: Progress Note - Cardiology 04/21 Abnormal troponin not consistent with acute coronary syndrome. PN 04/19 - Possible acute non Q wave MO. History/Risk Factors: Systolic CHF, HTN heart disease, sepsis, hx. tob, atrial fib Clinical Indicators: Troponins .021, 2.300, 1.640 In your opinion, what is the most clinically appropriate diagnosis for this patient? NSTEMI NSTEMI ruled out Other explanation of clinical findings Unable to determine (no explanation for clinical findings) NSTEMI ruled out MTDD
--- NOTE | 2018-04-23 19:54 | PN ---
PROGRESS NOTE DATE OF SERVICE: April 20, 2018. PRESENTING COMPLAINT: Tired. INTERVAL HISTORY: This patient was seen by me on April 20, 2018. Admitted with acute influenza A, paroxysmal atrial fibrillation with rapid rate. Troponins were positive. Per Cardiology, this is not felt to be acute DE. The patient had received Lasix. Overall starting to get better. Decreased respiratory symptoms. Tolerating a diet. REVIEW OF SYSTEMS: Done for constitutional, cardiovascular, GI, pulmonary; relevant findings as above. CURRENT MEDICATIONS: Reviewed. EXAMINATION: VITAL SIGNS: Temperature 98.2. Pulse 60, respirations 17, blood pressure 127/65, pulse ox 95% on room air. GENERAL APPEARANCE: Sitting up, comfortable. EYES: Pupils equal. Conjunctivae normal. NECK: JVD not raised. Mass not palpable. RESPIRATORY: Effort increased. LUNGS: Slightly decreased breath sounds. CARDIOVASCULAR: 1st and 2nd sounds, no edema. ABDOMEN: Soft, nontender. Liver and spleen not palpable. PSYCHIATRY: Alert and oriented x3. Mood and affect normal. INVESTIGATIONS: BUN 21, creatinine 0.76. ProBNP was 445. ASSESSMENT: 1. Acute influenza A causing bilateral pneumonitis with sepsis, POA. 2. Paroxysmal atrial fibrillation rapid ventricular rate on presentation, now in sinus rhythm. 3. Positive troponins, not felt to be acute myocardial infarction per Cardiology. Diagnosis of acute myocardial infarction has been dropped. 4. Gastroesophageal reflux disease. 5. Hyperlipidemia. 6. Essential hypertension. 7. Primary osteoarthritis. 8. Obstructive sleep apnea, uses CPAP machine. 9. Chronic spinal stenosis. 10.Restless legs syndrome. 11.Colonic diverticulosis. 12.Acute renal failure prerenal from diureses. 13.Moderate mitral regurgitation, nonrheumatic. 14.Hypertensive heart disease. PLAN: Continue current medication and treatment plan. Lasix has been scaled back. Repeat labs in the morning. Chest x-ray is also noted. MMODL / IJN: [id number] /
--- NOTE | 2018-04-23 20:09 | DS ---
DISCHARGE SUMMARY DATE OF ADMISSION: 04/16/2018 DATE OF DISCHARGE: 04/21/2018 FINAL DIAGNOSES: 1. Acute influenza A causing bilateral pneumonitis with sepsis and myocarditis, POA. 2. Paroxysmal atrial fibrillation, rapid ventricular rate, POA, now in sinus rhythm. 3. Positive troponins, not felt to be acute PA probably myocarditis from the influenza A. 4. Gastroesophageal reflux disease. 5. Hyperlipidemia. 6. Essential hypertension. 7. Primary osteoarthritis. 8. Obstructive sleep apnea uses CPAP machine. 9. Chronic spinal stenosis. 10.Restless legs syndrome. 11.Colonic diverticulosis. 12.Acute renal failure prerenal from diuresis. 13.Moderate mitral regurgitation, nonrheumatic. 14.Hypertensive heart disease. CONSULTATION: Dr. Mahajan from Pulmonary, Dr. Drew from Cardiology. HOSPITAL COURSE: The patient presented with cough, weak, tired, rundown, fever, chills, cough, probably went into atrial fibrillation with rapid ventricular rate that did revert back to sinus rhythm. The patient troponin did go up. Seen by Cardiology, not felt to be acute PA. Probably myocarditis related to acute influenza A. The patient's 2D echocardiogram showed EF of 55-60 percent, moderate mitral regurgitation. There was no wall motion abnormality. The patient is doing much better by the time of discharge. Breathing better. Tolerating a diet. EXAMINATION: Afebrile. Pulse 60, respirations 16, blood pressure 113/72, pulse ox 93 percent on room air. Lungs fair entry. CARDIOVASCULAR: First and second sounds normal. INVESTIGATIONS: Potassium 3.2, BUN 22, creatinine 0.78. DISCHARGE MEDICATIONS: 1. Lipitor 10 mg q.h.s. 2. Lexapro 40 mg p.o. daily. 3. Pepcid 40 mg p.o. daily. 4. Singulair 10 mg q.h.s. 5. Pamelor 20 mg at bedtime. 6. Requip 1 mg p.o. b.i.d. 7. Eliquis 5 mg b.i.d. 8. Anna 180 mg p.o. daily. 9. Lopressor 25 mg b.i.d. 10.Hytrin 5 mg p.o. daily. 11.Metamucil 6 grams p.o. at bedtime. 12.Augmentin 875 1 tablet p.o. b.i.d. for 3 days. 13.Lasix 40 mg p.o. daily. 14.Cozaar 100 mg p.o. daily. 15.Potassium 20 mEq p.o. daily. 16.Prednisone taper. FOLLOWUP: Follow up with Dr. Guillen on May 11, 2018, Dr. Benitez on 04/28/2018, Dr. Wallace on April 23, 2018. BMP, CBC, magnesium in one week. Copy to Dr. Wallace. MMODL / IJN: [id number] /
== END 2018-04-21 18:18 | disposition home or self-care (01) | DRG 871 ==
LOC: EC 12:43 → 3SCARD 14:11
PROVIDERS: ADMIT Hospitalist; ATTEND Hospitalist
DX: A41.9 Sepsis, unspecified organism (principal); J10.00 Influenza due to other identified influenza virus with unspecified type of pneumonia; I50.43 Acute on chronic combined systolic (congestive) and diastolic (congestive) heart failure; E87.2 Acidosis; I42.9 Cardiomyopathy, unspecified; I47.1 Supraventricular tachycardia; N17.9 Acute kidney failure, unspecified; E78.5 Hyperlipidemia, unspecified; E83.42 Hypomagnesemia; F31.9 Bipolar disorder, unspecified; F41.9 Anxiety disorder, unspecified; G25.81 Restless legs syndrome; G47.33 Obstructive sleep apnea (adult) (pediatric); I08.1 Rheumatic disorders of both mitral and tricuspid valves; I11.0 Hypertensive heart disease with heart failure; I25.9 Chronic ischemic heart disease, unspecified; I48.0 Paroxysmal atrial fibrillation; I65.21 Occlusion and stenosis of right carotid artery; K21.9 Gastro-esophageal reflux disease without esophagitis; K57.30 Diverticulosis of large intestine without perforation or abscess without bleeding; M19.90 Unspecified osteoarthritis, unspecified site; M48.00 Spinal stenosis, site unspecified; Z79.01 Long term (current) use of anticoagulants; Z79.899 Other long term (current) drug therapy; Z80.0 Family history of malignant neoplasm of digestive organs; Z82.49 Family history of ischemic heart disease and other diseases of the circulatory system; Z86.73 Personal history of transient ischemic attack (TIA), and cerebral infarction without residual deficits; Z87.891 Personal history of nicotine dependence; Z90.711 Acquired absence of uterus with remaining cervical stump; Z98.42 Cataract extraction status, left eye; Z98.41 Cataract extraction status, right eye; Z96.1 Presence of intraocular lens; Z96.643 Presence of artificial hip joint, bilateral; Z88.5 Allergy status to narcotic agent; Z88.2 Allergy status to sulfonamides; Z88.8 Allergy status to other drugs, medicaments and biological substances; J20.8 Acute bronchitis due to other specified organisms; G89.29 Other chronic pain; Z99.89 Dependence on other enabling machines and devices; Z87.440 Personal history of urinary (tract) infections; Z90.49 Acquired absence of other specified parts of digestive tract; K57.90 Diverticulosis of intestine, part unspecified, without perforation or abscess without bleeding
CPT/HCPCS: 36415; 71045; 71046; 80048; 80053; 83605; 83735; 83880; 84443; 84484; 85025; 85610; 85730; 87040; 87502; 93306; 94760; 96365; 96366; 96368; 96375; 96376; 99291

== ENCOUNTER 2018-04-23 11:17 | Inpatient (IN) | payer MEDICARE, BC ==
[2018-04-23] MEDS ORDERED: IPRATROPIUM 0.5 MG/2.5 ML NEBU INHALATION STA (11:31)
[2018-04-23] MEDS ORDERED: ALBUTEROL NEBULIZED 2.5 MG/3 ML INHALATION STA (11:31)
[2018-04-23 12:36] LABS: Basophils % (A) 0 %; Eosinophils # (A) 0.1 k/uL (0-0.7); Eosinophils % (A) 1 %; HCT 44.3 % (34.0-46.0); HGB 13.5 gm/dL (11.4-16.0); Hypochromasia Slight; Lymphocytes # (A) 1.6 k/uL (1.0-4.8); Lymphocytes % (A) 11 %; MCH 26.2 pg (25.0-35.0); MCHC 30.6 g/dL (31.0-37.0); MCV 85.8 fL (80.0-100.0); Mean Platelet Volume 6.4; Monocytes # (A) 0.6 k/uL (0-1.0); Monocytes % (A) 4 %; Neutrophils # (A) 12.7 k/uL (1.3-7.7); Neutrophils % (A) 85 %; Platelet Count 218 k/uL (150-450); RBC 5.17 m/uL (3.80-5.40); RDW 13.9 % (11.5-15.5)
[2018-04-23 12:48] LABS: Albumin 3.5 g/dL (3.5-5.0); Calcium 9.7 mg/dL (8.4-10.2); Magnesium 1.9 mg/dL (1.6-2.3); Partial Thromboplastin Time 23.2 sec (22.0-30.0); Potassium 3.8 mmol/L (3.5-5.1); Prothrombin Time 10.6 sec (9.0-12.0); Total Bilirubin 0.7 mg/dL (0.2-1.3); Total Protein 6.2 g/dL (6.3-8.2)
--- NOTE | 2018-04-23 13:02 | ED ---
URI HPI - General Chief Complaint: Upper Respiratory Infection Stated Complaint: dehydration Time Seen by Provider: 04/23/18 11:27 Source: patient, EMS, RN notes reviewed, old records reviewed Mode of arrival: EMS - History of Present Illness Initial Comments: This is a 70-year-old female the ER for evaluation, recent diagnosis of influenza pneumonia. Patient taking antibiotics and steroids appropriate. Taking all medications appropriate. Patient follow-up appointment today secondary to CHF as well. She's been having persistent fevers and chills. Not feeling well and had a near syncopal event at her doctor's appointment tonloree. Patient states she has severe exertional dyspnea. At this point in the emergency room her symptoms are improved MD Complaint: fever -: days(s) Severity: moderate Severity scale (1-10): 5 Consistency: constant Improves With: rest Worsens With: activity, deep breaths Context: sick contacts, new medications Associated Symptoms: fever, chills, myalgias, shortness of breath Treatments Prior to Arrival: none - Related Data Home Medications Medication Instructions Recorded Confirmed Atorvastatin [Lipitor] 10 mg PO HS 12/17/16 04/23/18 Escitalopram [Lexapro] 40 mg PO DAILY 12/17/16 04/23/18 Famotidine 40 mg PO DAILY 12/17/16 04/23/18 Montelukast [Singulair] 10 mg PO HS 12/17/16 04/23/18 Nortriptyline [Pamelor] 20 mg PO HS 12/17/16 04/23/18 rOPINIRole HCL [Requip] 1 mg PO BID 12/17/16 04/23/18 Apixaban [Eliquis] 5 mg PO BID 11/26/17 04/23/18 Fexofenadine HCl [Anna Allergy] 180 mg PO DAILY 11/26/17 04/23/18 Metoprolol Tartrate [Lopressor] 25 mg PO BID 11/26/17 04/23/18 Terazosin [Hytrin] 5 mg PO DAILY 04/16/18 04/23/18 Psyllium Husk 100% [Metamucil 6 gm PO HS 04/17/18 04/23/18 Packet] predniSONE See Taper PO DAILY 04/23/18 04/23/18 Previous Rx's Medication Instructions Recorded Amoxicillin/Potassium Clav 1 tab PO BID 3 Days #6 tab 04/21/18 [Augmentin 875-125 Tablet] Furosemide [Lasix] 40 mg PO DAILY #30 tab 04/21/18 Losartan [Cozaar] 100 mg PO DAILY #30 tab 04/21/18 Potassium Chloride ER [K-Dur 20] 20 meq PO DAILY #60 tab 04/21/18 Allergies Allergy/AdvReac Type Severity Reaction Status Date / Time acetaminophen [From [place]] Allergy Rash/Hives Verified 04/23/18 11:52 hydrocodone [From [place]] Allergy Rash/Hives Verified 04/23/18 11:52 Sulfa (Sulfonamide Allergy Rash/Hives Verified 04/23/18 11:52 Antibiotics) aripiprazole [From Abilify] AdvReac Hallucinati Verified 04/23/18 11:52 ons banana AdvReac Nausea & Verified 04/23/18 11:52 Vomiting & Diarrhea bupropion [From Wellbutrin] AdvReac Hallucinati Verified 04/23/18 11:52 ons codeine AdvReac Nausea & Verified 04/23/18 11:52 Vomiting morphine AdvReac Nausea & Verified 04/23/18 11:52 Vomiting nitrofurantoin AdvReac Unknown Verified 04/23/18 11:52 propoxyphene [From Darvon] AdvReac Nausea & Verified 04/23/18 11:52 Vomiting Review of Systems ROS Statement: Those systems with pertinent positive or pertinent negative responses have been documented in the HPI. ROS Other: All systems not noted in ROS Statement are negative. Past Medical History Past Medical History: Chest Pain / Angina, CVA/TIA, GERD/Reflux, Hyperlipidemia, Hypertension, Osteoarthritis (OA), Sleep Apnea/CPAP/BIPAP Additional Past Medical History / Comment(s): DDD, DJD, SPINAL STENOSIS, chronic bilateral hip pain worse on R side, 2018 septic arthritis R wrist, occluded carotid right artery, TIA x 2, RLS, seasonal allergies, KEVIN with CPAP USED, UTIs, diverticular dx, HAD GERD IN PAST NONE SINCE HIATAL HERNIA SX.,CARDIOMYOPATHY, murmur. History of Any Multi-Drug Resistant Organisms: None Reported Past Surgical History: Adenoidectomy, Appendectomy, Bladder Surgery, Cholecystectomy, Hysterectomy, Joint Replacement, Orthopedic Surgery, Tonsillectomy Additional Past Surgical History / Comment(s): bilateral hip replacments, R rotator cuff repair, partial hysterectomy-still has ovaries, sinus sx twice, niko cataracts-lens implants, hiatal hernia sx, bladder suspension, L breast bx- benign Past Anesthesia/Blood Transfusion Reactions: No Reported Reaction, Motion Sickness Past Psychological History: Anxiety, Bipolar, Depression Smoking Status: Former smoker Past Alcohol Use History: None Reported Past Drug Use History: None Reported - Past Family History Mother Family Medical History: Cancer Additional Family Medical History / Comment(s): colon cancer Father Family Medical History: Congestive Heart Failure (CHF) General Exam General appearance: alert, in no apparent distress Head exam: Present: atraumatic, normocephalic, normal inspection Eye exam: Present: normal appearance, PERRL, EOMI. Absent: scleral icterus, conjunctival injection, periorbital swelling ENT exam: Present: normal exam, mucous membranes moist Neck exam: Present: normal inspection. Absent: tenderness, meningismus, lymphadenopathy Respiratory exam: Present: normal lung sounds bilaterally, accessory muscle use, decreased breath sounds, prolonged expiratory. Absent: respiratory distress, wheezes, rales, rhonchi, stridor Cardiovascular Exam: Present: regular rate, normal rhythm, normal heart sounds. Absent: systolic murmur, diastolic murmur, rubs, gallop, clicks GI/Abdominal exam: Present: soft, normal bowel sounds. Absent: distended, tenderness, guarding, rebound, rigid Extremities exam: Present: normal inspection, full ROM, normal capillary refill. Absent: tenderness, pedal edema, joint swelling, calf tenderness Back exam: Present: normal inspection Neurological exam: Present: alert, oriented X3, CN II-XII intact Psychiatric exam: Present: normal affect, normal mood Skin exam: Present: warm, dry, intact, normal color. Absent: rash Course Vital Signs 04/23/18 04/23/18 04/23/18 11:19 11:33 12:21 Temperature 97.7 F Pulse Rate 64 68 Respiratory 20 20 Rate Blood Pressure 135/80 O2 Sat by Pulse 94 L Oximetry 04/23/18 12:35 Temperature Pulse Rate 64 Respiratory Rate Blood Pressure O2 Sat by Pulse Oximetry - Reevaluation(s) Reevaluation #1: 04/23/18 14:31 Medical record is reviewed as well as EMS and transfer paperwork Reevaluation #2: 04/23/18 14:31 Patient does have improvement of symptoms of syncope, no syncopal episodes here in the ER Medical Decision Making - Medical Decision Making 70-year-old female the ER for evaluation weakness and near syncopal event and follow-up appointment today, patient was sent in for evaluation does continue to have elevated troponin shortness of breath. Patient be admitted for breathing treatments and monitoring of cardiopulmonary status - Lab Data Result diagrams: 04/23/18 12:22 04/23/18 12:22 Lab Results 04/23/18 04/23/18 04/23/18 Range/Units 12:22 12:22 12:22 WBC 15.0 H (3.8-10.6) k/uL RBC 5.17 (3.80-5.40) m/uL Hgb 13.5 (11.4-16.0) gm/dL Hct 44.3 (34.0-46.0) % MCV 85.8 (80.0-100.0) fL MCH 26.2 (25.0-35.0) pg MCHC 30.6 L (31.0-37.0) g/dL RDW 13.9 (11.5-15.5) % Plt Count 218 (150-450) k/uL Neutrophils % 85 % Lymphocytes % 11 % Monocytes % 4 % Eosinophils % 1 % Basophils % 0 % Neutrophils # 12.7 H (1.3-7.7) k/uL Lymphocytes # 1.6 (1.0-4.8) k/uL Monocytes # 0.6 (0-1.0) k/uL Eosinophils # 0.1 (0-0.7) k/uL Basophils # 0.0 (0-0.2) k/uL Hypochromasia Slight PT (9.0-12.0) sec INR (<1.2) APTT (22.0-30.0) sec Sodium 139 (137-145) mmol/L Potassium 3.8 (3.5-5.1) mmol/L Chloride 103 (98-107) mmol/L Carbon Dioxide 27 (22-30) mmol/L Anion Gap 9 mmol/L BUN 25 H (7-17) mg/dL Creatinine 0.90 (0.52-1.04) mg/dL Est GFR (CKD-EPI)AfAm 71 (>60 ml/min/1.73 sqM) Est GFR (CKD-EPI)NonAf 62 (>60 ml/min/1.73 sqM) Glucose 106 H (74-99) mg/dL Calcium 9.7 (8.4-10.2) mg/dL Magnesium 1.9 (1.6-2.3) mg/dL Total Bilirubin 0.7 (0.2-1.3) mg/dL AST 21 (14-36) U/L ALT 33 (9-52) U/L Alkaline Phosphatase 69 (38-126) U/L Troponin I (0.000-0.034) ng/mL NT-Pro-B Natriuret Pep 490 pg/mL Total Protein 6.2 L (6.3-8.2) g/dL Albumin 3.5 (3.5-5.0) g/dL 04/23/18 04/23/18 Range/Units 12:22 12:22 WBC (3.8-10.6) k/uL RBC (3.80-5.40) m/uL Hgb (11.4-16.0) gm/dL Hct (34.0-46.0) % MCV (80.0-100.0) fL MCH (25.0-35.0) pg MCHC (31.0-37.0) g/dL RDW (11.5-15.5) % Plt Count (150-450) k/uL Neutrophils % % Lymphocytes % % Monocytes % % Eosinophils % % Basophils % % Neutrophils # (1.3-7.7) k/uL Lymphocytes # (1.0-4.8) k/uL Monocytes # (0-1.0) k/uL Eosinophils # (0-0.7) k/uL Basophils # (0-0.2) k/uL Hypochromasia PT 10.6 (9.0-12.0) sec INR 1.0 (<1.2) APTT 23.2 (22.0-30.0) sec Sodium (137-145) mmol/L Potassium (3.5-5.1) mmol/L Chloride (98-107) mmol/L Carbon Dioxide (22-30) mmol/L Anion Gap mmol/L BUN (7-17) mg/dL Creatinine (0.52-1.04) mg/dL Est GFR (CKD-EPI)AfAm (>60 ml/min/1.73 sqM) Est GFR (CKD-EPI)NonAf (>60 ml/min/1.73 sqM) Glucose (74-99) mg/dL Calcium (8.4-10.2) mg/dL Magnesium (1.6-2.3) mg/dL Total Bilirubin (0.2-1.3) mg/dL AST (14-36) U/L ALT (9-52) U/L Alkaline Phosphatase (38-126) U/L Troponin I 0.128 H* (0.000-0.034) ng/mL NT-Pro-B Natriuret Pep pg/mL Total Protein (6.3-8.2) g/dL Albumin (3.5-5.0) g/dL - EKG Data -: EKG Interpreted by Me (EKG shows sinus bradycardia rate 55, CO 160, QRS 90, QTc 450) - Radiology Data Radiology results: report reviewed (Chest x-rays negative for acute disease), image reviewed Disposition Clinical Impression: Troponin level elevated, Influenza A, Fever and chills, Acute bronchitis, Dehydration, Near syncope, Upper respiratory infection Disposition: ADMITTED IP TO THIS HOSP Condition: Fair Is patient prescribed a controlled substance at d/c from ED?: No Referrals: Lan Wallace MD [Primary Care Provider] - 1-2 days
--- NOTE | 2018-04-23 13:06 | XR ---
EXAMINATION TYPE: XR chest 2V DATE OF EXAM: 04/23/2018 COMPARISON: Chest x-ray April 20, 2018. HISTORY: Cough and shortness of breath. TECHNIQUE: Frontal and lateral views of the chest are obtained. FINDINGS: There is background chronic parenchymal change without suspicious focal air space opacity, pleural effusion, or pneumothorax seen. The cardiac silhouette size is stable and upper limits of n ormal. Cholecystectomy clips are redemonstrated. The osseous structures are demineralized. Metallic anchors right humeral head are redemonstrated.. IMPRESSION: Chronic parenchymal changes without new acute pulmonary process. No significant change f rom most recent prior.
[2018-04-23] MEDS ORDERED: methylPREDNISolone SOD SUCCI 125 MG/2 ML VIAL IV STA (14:26)
[2018-04-23] MEDS ORDERED: AMPICILLIN-SULBACTAM 3 GM in SODIUM CHLORIDE 0.9% 100 ML IVPB STA (14:30)
[2018-04-23] MEDS: SODIUM CHLORIDE 0.9% 1,000 ML IV SCH ×2 (15:12→23:26)
[2018-04-23] MEDS ORDERED: HYDROcodone/APAP 5-325MG 1 EACH TAB PO PRN (18:17)
[2018-04-23] MEDS ORDERED: ALBUTEROL NEBULIZED 2.5 MG/3 ML INHALATION PRN (18:17)
[2018-04-23] MEDS ORDERED: ACETAMINOPHEN TAB 325 MG TAB PO PRN (18:17)
[2018-04-23] MEDS ORDERED: NALOXONE 0.4 MG/ML 1 ML VIAL IV PRN (18:17)
--- NOTE | 2018-04-23 18:33 | P.HPIM ---
History of Present Illness H&P Date: 04/23/18 Chief Complaint: Presyncopal episode 78 yo female with PMH of GERD, hypertension, atrial fibrillation, hyperlipidemia, anxiety/bipolar/depression presents to the ED for presyncopal episode from her PCP clinic. Patient reports being discharged from [facility] on Friday after being diagnosed with the flu. Patient initially reported great improvement from Friday to Friday and on . Patient reports going to her PCP clinic for a follow-up post hospital appointment. As she was sitting there, waiting for the doctor patient started to experience nausea and lightheadedness. Patient states that she was able to make it to the bathroom with the help of someone and had a bowel movement. Patient reports that she felt very weak and she needed help standing up from the commode and back to where she was sitting. She was seen by her PCP Dr. Wallace, who recommended that she go to the hospital for dehydration. Patient denies any headaches, lower extremity swelling, nausea, vomiting, fever, cough, chest pain, shortness of breath, palpitations, changes in urination or bowel habits. No changes in appetite or weight. Patient denied any syncopal episode at that time. Of note, patient reports that all of her symptoms have resolved except for generalized weakness. She denies any smoking cigarettes, alcohol or illicit drug use. In the ED, vital signs were within normal limits. CBC showed a leukocytosis of 15. CMP showed a BUN of 25, glucose of 106. Initial troponin is 0.128, EKG showing sinus bradycardia. Patient is admitted for evaluation of presyncopal episode, cardiology on consult. Review of Systems All systems: negative Past Medical History Past Medical History: Atrial Fibrillation, Chest Pain / Angina, Heart Failure, CVA/TIA, GERD/Reflux, Hyperlipidemia, Hypertension, Osteoarthritis (OA), Sleep Apnea/CPAP/BIPAP Additional Past Medical History / Comment(s): Pt recently admitted to [facility] on 04/16/18 with influenza A, lactic acidosis, hypomagnesemia. Other hx: DDD, DJD, SPINAL STENOSIS, chronic bilateral hip pain worse on R side, 2018 septic arthritis R wrist, occluded carotid right artery, TIA x 2, RLS, seasonal allergies, KEVIN with CPAP USED, UTIs, diverticular dx, HAD GERD IN PAST NONE SINCE HIATAL HERNIA SX.,CARDIOMYOPATHY, murmur. History of Any Multi-Drug Resistant Organisms: None Reported Past Surgical History: Adenoidectomy, Appendectomy, Bladder Surgery, Cholecystectomy, Hysterectomy, Joint Replacement, Orthopedic Surgery, Tonsillectomy Additional Past Surgical History / Comment(s): bilateral hip replacments, R rotator cuff repair, partial hysterectomy-still has ovaries, sinus sx twice, niko cataracts-lens implants, hiatal hernia sx, bladder suspension, L breast bx- benign Past Anesthesia/Blood Transfusion Reactions: No Reported Reaction, Motion Sickness Past Psychological History: Anxiety, Bipolar, Depression Additional Psychological History / Comment(s): Pt is independant. Pt lives with spouse in 1 level home that has 2 porch steps. no home care services recieved. has a cpap machine. Pt drives. Smoking Status: Former smoker Past Alcohol Use History: None Reported Additional Past Alcohol Use History / Comment(s): started smoking at age 18(1958) and quit 2001. smoked 1 ppd. Past Drug Use History: None Reported - Past Family History Mother Family Medical History: Cancer Additional Family Medical History / Comment(s): colon cancer Father Family Medical History: Congestive Heart Failure (CHF) Medications and Allergies Home Medications Medication Instructions Recorded Confirmed Type Atorvastatin [Lipitor] 10 mg PO HS 12/17/16 04/23/18 History Escitalopram [Lexapro] 40 mg PO DAILY 12/17/16 04/23/18 History Famotidine 40 mg PO DAILY 12/17/16 04/23/18 History Montelukast [Singulair] 10 mg PO HS 12/17/16 04/23/18 History Nortriptyline [Pamelor] 20 mg PO HS 12/17/16 04/23/18 History rOPINIRole HCL [Requip] 1 mg PO BID 12/17/16 04/23/18 History Apixaban [Eliquis] 5 mg PO BID 11/26/17 04/23/18 History Fexofenadine HCl [Anna Allergy] 180 mg PO DAILY 11/26/17 04/23/18 History Metoprolol Tartrate [Lopressor] 25 mg PO BID 11/26/17 04/23/18 History Terazosin [Hytrin] 5 mg PO DAILY 04/16/18 04/23/18 History Psyllium Husk 100% [Metamucil 6 gm PO HS 04/17/18 04/23/18 History Packet] Amoxicillin/Potassium Clav 1 tab PO BID 3 Days #6 tab 04/21/18 04/23/18 Rx [Augmentin 875-125 Tablet] Furosemide [Lasix] 40 mg PO DAILY #30 tab 04/21/18 04/23/18 Rx Losartan [Cozaar] 100 mg PO DAILY #30 tab 04/21/18 04/23/18 Rx Potassium Chloride ER [K-Dur 20] 20 meq PO DAILY #60 tab 04/21/18 04/23/18 Rx predniSONE See Taper PO DAILY 04/23/18 04/23/18 History Allergies Allergy/AdvReac Type Severity Reaction Status Date / Time acetaminophen [From [place]] Allergy Rash/Hives Verified 04/23/18 11:52 hydrocodone [From [place]] Allergy Rash/Hives Verified 04/23/18 11:52 Sulfa (Sulfonamide Allergy Rash/Hives Verified 04/23/18 11:52 Antibiotics) aripiprazole [From Abilify] AdvReac Hallucinati Verified 04/23/18 11:52 ons banana AdvReac Nausea & Verified 04/23/18 11:52 Vomiting & Diarrhea bupropion [From Wellbutrin] AdvReac Hallucinati Verified 04/23/18 11:52 ons codeine AdvReac Nausea & Verified 04/23/18 11:52 Vomiting morphine AdvReac Nausea & Verified 04/23/18 11:52 Vomiting nitrofurantoin AdvReac Unknown Verified 04/23/18 11:52 propoxyphene [From Darvon] AdvReac Nausea & Verified 04/23/18 11:52 Vomiting Physical Exam Vitals: Vital Signs Temp Pulse Resp BP Pulse Ox 04/23/18 16:39 97.9 F 72 16 143/68 95 04/23/18 15:17 62 16 128/79 99 04/23/18 14:42 97.3 F L 65 16 118/86 96 04/23/18 12:35 64 04/23/18 12:21 68 04/23/18 11:33 20 04/23/18 11:19 97.7 F 64 20 135/80 94 L Intake and Output 04/23/18 04/23/18 04/23/18 06:59 14:59 22:59 Other: Weight 68.039 kg General: [non toxic], [no distress], [appears at stated age] Derm: [warm], [dry] Head: [atraumatic], [normocephalic], [symmetric] Eyes: [EOMI], [no lid lag], [anicteric sclera] Mouth: [no lip lesion], [mucus membranes moist] Cardiovascular: [S1S2 reg], [no murmur], [positive posterior tibial pulse bilateral], Lungs: [CTA bilateral], [no rhonchi, no rales] , [no accessory muscle use] Abdominal: [soft], [ nontender to palpation], [no guarding], [no appreciable organomegaly] Ext: [no gross muscle atrophy], [no edema], [no contractures] Neuro: [ CN II-XI grossly intact], [no focal neuro deficits] Psych: [Alert], [oriented], [appropriate affect] Results CBC & Chem 7: 04/23/18 12:22 04/23/18 12:22 Labs: Abnormal Lab Results - Last 24 Hours (Table) 04/23/18 04/23/18 04/23/18 Range/Units 12:22 12:22 12:22 WBC 15.0 H (3.8-10.6) k/uL MCHC 30.6 L (31.0-37.0) g/dL Neutrophils # 12.7 H (1.3-7.7) k/uL BUN 25 H (7-17) mg/dL Glucose 106 H (74-99) mg/dL Troponin I 0.128 H* (0.000-0.034) ng/mL Total Protein 6.2 L (6.3-8.2) g/dL Thrombosis Risk Factor Assmnt - Choose All That Apply Any of the Below Risk Factors Present?: Yes Each Factor Represents 1 point: Obesity (BMI >25) Other Risk Factors: Yes Each Risk Factor Represents 3 Points: Age 75 years or older Other congenital or acquired thrombophilia - If yes, enter type in comment: No Thrombosis Risk Factor Assessment Total Risk Factor Score: 4 Thrombosis Risk Factor Assessment Level: Moderate Risk Assessment and Plan Assessment: Assessment and Plan 1. Presyncopal episode, concerning for ACS. 2. Acute bronchitis with recent influenza infection 3. Troponin elevation 4. Elevated BUN 5. Atrial fibrillation 6. Hypertension 7. Anxiety/depression/bipolar 1. Orthostasis versus cardiac cause (murmurs or arrhythmias), concerns for ACS. Recent echocardiogram showing EF 55-60% with moderate LVH. Telemetry monitoring. Follow orthostatic vitals. Rule out acute coronary syndrome. 2. Chest x-ray shows no acute process. Patient is afebrile but with a mild leukocytosis of 15.0. Continue Unasyn IV, changed to Augmentin on discharge. O2 per nasal cannula to maintain an O2 saturation greater than 92%. 3. Troponin 0.128, EKG showing sinus bradycardia. Concerns for ACS given recent presyncopal episode. Recent echo in April 2018 shows no wall motion abnormalities. Trend 2 troponin/EKG to rule out ACS. Telemetry monitoring. Follow cardiology consult. 4. BUN 25, creatinine within normal limits. Likely due to dehydration. Continue normal saline at 100 mL/h. Daily BMP. 5. Rate controlled on metoprolol 25 mg by mouth twice a day. Continue Eliquis for anticoagulation. Follow cardiology consult. 6. BP 143/68. Continue losartan, metoprolol. Continue Lasix. Monitor vitals, adjust medications as necessary. 7. Continue Lexapro, nortriptyline. Patient admitted for presyncopal episode. Ruling out ACS. Cardiology is on consult. She is pending clinical improvement. Likely DC in 1-3 days. Patient states that she would like to be DO NOT INTUBATE and DO NOT RESUSCITATE. Her decision-maker is her in the case that she can't make decisions for himself.
[2018-04-23] MEDS: METOPROLOL TARTRATE 25 MG TAB PO SCH (20:22)
[2018-04-23] MEDS: APIXABAN 5 MG TAB PO SCH (20:22)
[2018-04-23] MEDS: methylPREDNISolone SOD SUCCI 125 MG/2 ML VIAL IV SCH ×2 (20:22→23:26)
[2018-04-23] MEDS ORDERED: ATORVASTATIN 10 MG TAB PO SCH (21:00)
[2018-04-23] MEDS ORDERED: MONTELUKAST 10 MG TAB PO SCH (21:00)
[2018-04-23] MEDS ORDERED: NORTRIPTYLINE 10 MG CAP PO SCH (21:00)
[2018-04-23 21:03] LABS: Glucose,Whole Blood 163 mg/dL (75-99)
[2018-04-23] MEDS: INSULIN ASPART (NovoLOG) 100 UNIT/ML VIAL SQ SCH (21:15)
[2018-04-23] MEDS: PSYLLIUM HUSK 100% 6 GM PACKET PO SCH (22:24)
[2018-04-23] MEDS: AMPICILLIN-SULBACTAM 3 GM in SODIUM CHLORIDE 0.9% 100 ML IVPB SCH (23:25)
[2018-04-24 04:37] VITALS: RESP 16
[2018-04-24 06:00] LABS: Glucose,Whole Blood 132 mg/dL (75-99)
[2018-04-24 06:20] LABS: Basophils % (A) 0 %; Eosinophils % (A) 0 %; Hypochromasia Slight; Lymphocytes % (A) 14 %; MCH 26.3 pg (25.0-35.0); MCHC 30.9 g/dL (31.0-37.0); Mean Platelet Volume 6.5; Monocytes # (A) 0.2 k/uL (0-1.0); Monocytes % (A) 2 %; Neutrophils # (A) 6.3 k/uL (1.3-7.7); Neutrophils % (A) 83 %; Platelet Count 224 k/uL (150-450); RBC 4.95 m/uL (3.80-5.40); RDW 13.9 % (11.5-15.5); WBC 7.5 k/uL (3.8-10.6)
[2018-04-24 06:29] LABS: Potassium 4.2 mmol/L (3.5-5.1)
[2018-04-24 06:30] LABS: Anion Gap 6 mmol/L; Blood Urea Nitrogen 23 mg/dL (7-17); Calcium 9.7 mg/dL (8.4-10.2); Carbon Dioxide 27 mmol/L (22-30); Chloride 104 mmol/L (98-107); Glucose 149 mg/dL (74-99); Sodium 137 mmol/L (137-145)
[2018-04-24] MEDS: INSULIN ASPART (NovoLOG) 100 UNIT/ML VIAL SQ SCH ×2 (06:37→12:09)
[2018-04-24] MEDS: methylPREDNISolone SOD SUCCI 125 MG/2 ML VIAL IV SCH ×2 (06:37→12:09)
[2018-04-24] MEDS: APIXABAN 5 MG TAB PO SCH (08:49)
[2018-04-24] MEDS: METOPROLOL TARTRATE 25 MG TAB PO SCH (08:49)
[2018-04-24] MEDS: AMPICILLIN-SULBACTAM 3 GM in SODIUM CHLORIDE 0.9% 100 ML IVPB SCH (08:51)
[2018-04-24] MEDS ORDERED: ESCITALOPRAM 20 MG TAB PO SCH (09:00)
[2018-04-24] MEDS ORDERED: DOXAZOSIN 4 MG TAB PO SCH ×2 (09:00→21:00)
[2018-04-24] MEDS ORDERED: ENOXAPARIN 40 MG/0.4 ML SYRINGE SQ SCH (09:00)
[2018-04-24] MEDS ORDERED: FUROSEMIDE 40 MG TAB PO SCH (09:00)
[2018-04-24] MEDS ORDERED: LOSARTAN 50 MG TAB PO SCH (09:00)
[2018-04-24] MEDS ORDERED: SODIUM CHLORIDE 0.9% 1,000 ML IV SCH (09:15)
[2018-04-24 11:34] LABS: Glucose,Whole Blood 175 mg/dL (75-99)
--- NOTE | 2018-04-24 11:46 | P.CRDCN ---
History of Present Illness Consult date: 04/24/18 History of present illness: This is a 78-year-old female with history of hypertension, atrial fibrillation, hyperlipidemia, anxiety, who was admitted to the hospital with an episode of presyncope. Patient was recently treated for flu and was discharged home. Apparently she was in primary care physician's office and developed nausea vomiting and an episode of diarrhea. Subsequently patient felt very weak and could not get up. There is no actual loss of consciousness or fall. It was felt that patient may be dehydrated and patient was sent here for further evalua tion. Her BUN was 25 on admission. Her troponin is elevated mildly at the pattern is not consistent with acute myocardial infarction. Her troponin was also elevated last time and seemed to be gradually coming down. Patient did not have any chest pain. Her EKG showed sinus rhythm and sinus bradycardia. Her blood pressure is running high. There is no evidence of any postural changes. At this point most probably her symptoms were vasovagal in nature. No further cardiac evaluation is suggested. Continue to monitor for any postural changes. When medically stable, patient could be discharged home. Review of Systems As per the chart Past Medical History Past Medical History: Atrial Fibrillation, Chest Pain / Angina, Heart Failure, CVA/TIA, GERD/Reflux, Hyperlipidemia, Hypertension, Osteoarthritis (OA), Sleep Apnea/CPAP/BIPAP Additional Past Medical History / Comment(s): Pt recently admitted to [facility] on 04/16/18 with influenza A, lactic acidosis, hypomagnesemia. Other hx: DDD, DJD, SPINAL STENOSIS, chronic bilateral hip pain worse on R side, 2018 septic arthritis R wrist, occluded carotid right artery, TIA x 2, RLS, seasonal allergies, KEVIN with CPAP USED, UTIs, diverticular dx, HAD GERD IN PAST NONE SINCE HIATAL HERNIA SX.,CARDIOMYOPATHY, murmur. History of Any Multi-Drug Resistant Organisms: None Reported Past Surgical History: Adenoidectomy, Appendectomy, Bladder Surgery, Cholecystectomy, Hysterectomy, Joint Replacement, Orthopedic Surgery, Tonsillectomy Additional Past Surgical History / Comment(s): bilateral hip replacments, R rotator cuff repair, partial hysterectomy-still has ovaries, sinus sx twice, niko cataracts-lens implants, hiatal hernia sx, bladder suspension, L breast bx- benign Past Anesthesia/Blood Transfusion Reactions: No Reported Reaction, Motion Sickness Past Psychological History: Anxiety, Bipolar, Depression Additional Psychological History / Comment(s): Pt is independant. Pt lives with spouse in 1 level home that has 2 porch steps. no home care services recieved. has a cpap machine. Pt drives. Smoking Status: Former smoker Past Alcohol Use History: None Reported Additional Past Alcohol Use History / Comment(s): started smoking at age 18(1958) and quit 2001. smoked 1 ppd. Past Drug Use History: None Reported - Past Family History Mother Family Medical History: Cancer Additional Family Medical History / Comment(s): colon cancer Father Family Medical History: Congestive Heart Failure (CHF) Medications and Allergies Home Medications Medication Instructions Recorded Confirmed Type Atorvastatin [Lipitor] 10 mg PO HS 12/17/16 04/23/18 History Escitalopram [Lexapro] 40 mg PO DAILY 12/17/16 04/23/18 History Famotidine 40 mg PO DAILY 12/17/16 04/23/18 History Montelukast [Singulair] 10 mg PO HS 12/17/16 04/23/18 History Nortriptyline [Pamelor] 20 mg PO HS 12/17/16 04/23/18 History rOPINIRole HCL [Requip] 1 mg PO BID 12/17/16 04/23/18 History Apixaban [Eliquis] 5 mg PO BID 11/26/17 04/23/18 History Fexofenadine HCl [Anna Allergy] 180 mg PO DAILY 11/26/17 04/23/18 History Metoprolol Tartrate [Lopressor] 25 mg PO BID 11/26/17 04/23/18 History Terazosin [Hytrin] 5 mg PO DAILY 04/16/18 04/23/18 History Psyllium Husk 100% [Metamucil 6 gm PO HS 04/17/18 04/23/18 History Packet] Amoxicillin/Potassium Clav 1 tab PO BID 3 Days #6 tab 04/21/18 04/23/18 Rx [Augmentin 875-125 Tablet] Furosemide [Lasix] 40 mg PO DAILY #30 tab 04/21/18 04/23/18 Rx Losartan [Cozaar] 100 mg PO DAILY #30 tab 04/21/18 04/23/18 Rx Potassium Chloride ER [K-Dur 20] 20 meq PO DAILY #60 tab 04/21/18 04/23/18 Rx predniSONE See Taper PO DAILY 04/23/18 04/23/18 History Allergies Allergy/AdvReac Type Severity Reaction Status Date / Time acetaminophen [From [place]] Allergy Rash/Hives Verified 04/23/18 11:52 hydrocodone [From [place]] Allergy Rash/Hives Verified 04/23/18 11:52 Sulfa (Sulfonamide Allergy Rash/Hives Verified 04/23/18 11:52 Antibiotics) aripiprazole [From Abilify] AdvReac Hallucinati Verified 04/23/18 11:52 ons banana AdvReac Nausea & Verified 04/23/18 11:52 Vomiting & Diarrhea bupropion [From Wellbutrin] AdvReac Hallucinati Verified 04/23/18 11:52 ons codeine AdvReac Nausea & Verified 04/23/18 11:52 Vomiting morphine AdvReac Nausea & Verified 04/23/18 11:52 Vomiting nitrofurantoin AdvReac Unknown Verified 04/23/18 11:52 propoxyphene [From Darvon] AdvReac Nausea & Verified 04/23/18 11:52 Vomiting Physical Exam Vitals: Vital Signs Temp Pulse Pulse Pulse Pulse Pulse Pulse 04/24/18 08:00 98.2 F 70 64 80 04/24/18 04:00 98.2 F 66 04/24/18 00:00 61 04/23/18 20:00 97.8 F 63 04/23/18 16:39 97.9 F 72 04/23/18 16:00 96.6 F L 76 04/23/18 15:17 62 04/23/18 14:42 97.3 F L 65 04/23/18 12:35 64 04/23/18 12:21 68 Resp BP BP BP BP BP Pulse Ox 04/24/18 08:00 16 194/91 181/92 195/93 94 L 04/24/18 04:00 16 179/95 92 L 04/24/18 00:00 18 140/76 94 L 04/23/18 20:00 18 128/65 94 L 04/23/18 16:39 16 143/68 95 04/23/18 16:00 133/63 96 04/23/18 15:17 16 128/79 99 04/23/18 14:42 16 118/86 96 04/23/18 12:35 04/23/18 12:21 Intake and Output 04/23/18 04/24/18 04/24/18 22:59 06:59 14:59 Intake Total 600 Balance 600 Intake: Oral 600 Other: Voiding Method Toilet Toilet # Voids 2 Weight 68.4 kg GENERAL EXAM: Patient is alert and oriented and doesn't appear to be in any acute distress HEENT: Normocephalic. Normal reaction of pupils, equal size, normal range of ex traocular motion. No erythema or exudates in the throat. NECK: No masses, no nuchal rigidity. CHEST: No chest wall deformity. LUNGS: Equal air entry with no crackles or wheeze. HEART: S1 and S2 normal with no audible mumurs or gallops. Regular rhythm, femorals equal on both sides.. ABDOMEN: No hepatosplenomegaly, normal bowel sounds, no guarding or rigidity. SKIN: No rashes CENTRAL NERVOUS SYSTEM: No focal deficits. EXTREMITIES: No cyanosis, clubbing or edema. Results 04/24/18 05:34 04/24/18 05:34 Cardiac Enzymes 04/23/18 04/23/18 04/23/18 Range/Units 12:22 12:22 23:41 AST 21 (14-36) U/L Troponin I 0.128 H* 0.081 H* (0.000-0.034) ng/mL 04/24/18 Range/Units 05:34 AST (14-36) U/L Troponin I 0.085 H* (0.000-0.034) ng/mL Coagulation 04/23/18 Range/Units 12:22 PT 10.6 (9.0-12.0) sec APTT 23.2 (22.0-30.0) sec CBC 04/23/18 04/24/18 Range/Units 12:22 05:34 WBC 15.0 H 7.5 (3.8-10.6) k/uL RBC 5.17 4.95 (3.80-5.40) m/uL Hgb 13.5 13.0 (11.4-16.0) gm/dL Hct 44.3 42.0 (34.0-46.0) % Plt Count 218 224 (150-450) k/uL Comprehensive Metabolic Panel 03/14/19 03/15/19 Range/Units 12:22 05:34 Sodium 139 137 (137-145) mmol/L Potassium 3.8 4.2 (3.5-5.1) mmol/L Chloride 103 104 (98-107) mmol/L Carbon Dioxide 27 27 (22-30) mmol/L BUN 25 H 23 H (7-17) mg/dL Creatinine 0.90 0.74 (0.52-1.04) mg/dL Glucose 106 H 149 H (74-99) mg/dL Calcium 9.7 9.7 (8.4-10.2) mg/dL AST 21 (14-36) U/L ALT 33 (9-52) U/L Alkaline Phosphatase 69 (38-126) U/L Total Protein 6.2 L (6.3-8.2) g/dL Albumin 3.5 (3.5-5.0) g/dL Current Medications Generic Name Dose Route Start Last Admin Trade Name Freq PRN Reason Stop Dose Admin Acetaminophen 650 mg 04/23/18 18:17 Tylenol Tab PO Q6HR PRN Mild Pain or Fever > 100.5 Albuterol Sulfate 2.5 mg 04/23/18 18:17 Ventolin Nebulized INHALATION RT-QID PRN Shortness Of Breath Or Wheezing Apixaban 5 mg 04/23/18 21:00 04/24/18 08:49 Eliquis PO 5 mg BID SENG Administration Atorvastatin Calcium 10 mg 04/23/18 21:00 04/23/18 20:22 Lipitor PO 10 mg HS SENG Administration Doxazosin Mesylate 4 mg 04/24/18 21:00 Cardura PO HS SENG Escitalopram Oxalate 40 mg 04/24/18 09:00 04/24/18 09:07 Lexapro PO 40 mg DAILY SENG Administration Furosemide 40 mg 04/24/18 09:00 04/24/18 08:49 Lasix PO 40 mg DAILY SENG Administration Ampicillin Sodium/Sulbactam 100 mls @ 200 mls/hr 04/24/18 00:00 04/24/18 08:51 Sodium 3 gm/ Sodium Chloride IVPB 200 mls/hr Q8HR SENG Administration Sodium Chloride 1,000 mls @ 50 mls/hr 04/24/18 09:15 Saline 0.9% IV .Q20H SENG Insulin Aspart 0 unit 04/23/18 21:00 04/24/18 06:37 Novolog SQ 1 unit ACHS SENG Administration Protocol Losartan Potassium 100 mg 04/24/18 09:00 04/24/18 08:49 Cozaar PO 100 mg DAILY SENG Administration Methylprednisolone Sodium Succinate 60 mg 04/23/18 19:00 04/24/18 06:37 Solu-Medrol IV 60 mg Q6HR SENG Administration Metoprolol Tartrate 25 mg 04/23/18 21:00 04/24/18 08:49 Lopressor PO 25 mg BID SENG Administration Montelukast Sodium 10 mg 04/23/18 21:00 04/23/18 20:22 Singulair PO 10 mg HS SENG Administration Naloxone HCl 0.2 mg 04/23/18 18:17 Narcan IV Q2M PRN Opioid Reversal Nortriptyline HCl 20 mg 04/23/18 21:00 04/23/18 20:23 Pamelor PO 20 mg HS SENG Administration Psyllium Hydrophilic Mucilloid 6 gm 04/23/18 22:15 04/23/18 22:24 Metamucil PO 6 gm BID SENG Administration Ropinirole HCl 1 mg 04/23/18 21:00 04/24/18 08:49 Requip PO 1 mg BID SENG Administration Intake and Output 04/23/18 04/24/18 04/24/18 22:59 06:59 14:59 Intake Total 600 Balance 600 Intake: Oral 600 Other: Voiding Method Toilet Toilet # Voids 2 Weight 68.4 kg 04/24/18 05:34 04/24/18 05:34 EKG Interpretations (text) Sinus bradycardia Assessment and Plan (1) History of atrial fibrillation Current Visit: Yes Status: Acute Code(s): Z86.79 - PERSONAL HISTORY OF OTHER DISEASES OF THE CIRCULATORY SYSTEM SNOMED Code(s): 600173535 (2) Near syncope Current Visit: Yes Status: Acute Code(s): R55 - SYNCOPE AND COLLAPSE SNOMED Code(s): 821811984 (3) Troponin level elevated Current Visit: Yes Status: Acute Code(s): R74.8 - ABNORMAL LEVELS OF OTHER SERUM ENZYMES SNOMED Code(s): 302732672 (4) Hypertension Current Visit: No Status: Acute Code(s): I10 - ESSENTIAL (PRIMARY) HYPERTENSION SNOMED Code(s): 37022536 Plan: At this point her symptoms are size to of vasovagal phenomenon. Elevated troponins are not suggestive of myocardial infarction. In fact, compared to the last admission that coming down. No further cardiac workup at this time. When medically stable, patient could be discharged home. Titrate the medication to control blood pressure
[2018-04-24] MEDS ORDERED: amLODIPine 5 MG TAB PO STA (11:47)
[2018-04-24 11:52] VITALS: BP 180/83; PULSE 62; TEMP 98.7
[2018-04-24] MEDS: PSYLLIUM HUSK 100% 6 GM PACKET PO SCH (12:08)
--- NOTE | 2018-04-24 13:28 | P.DS ---
Providers Date of admission: 04/23/18 14:26 Expected date of discharge: 04/24/18 Attending physician: Clarissa Sanderson MD Consults: 04/23/18 14:26 Consult Physician Routine Consulting Provider: Ken Benitez Consult Reason/Comments: elevtrop Do you want consulting provider notified?: Yes [facility]: 78 yo female with PMH of GERD, hypertension, atrial fibrillation, hyperlipidemia, anxiety/bipolar/depression presents to the ED for presyncopal episode from her PCP clinic. Patient reports being discharged from [facility] on Friday after being diagnosed with the flu. Patient initially reported great improvement from Friday to Friday and on . Patient reports going to her PCP clinic for a follow-up post hospital appointment. As she was sitting there, waiting for the doctor patient started to experience nausea and lightheadedness. Patient states that she was able to make it to the bathroom with the help of someone and had a bowel movement. Patient reports that she felt very weak and she needed help standing up from the commode and back to where she was sitting. She was seen by her PCP Dr. Wallace, who recommended that she go to the hospital for dehydration. Patient denies any headaches, lower extremity swelling, nausea, vomiting, fever, cough, chest pain, shortness of breath, palpitations, changes in urination or bowel habits. No changes in appetite or weight. Patient denied any syncopal episode at that time. Of note, patient reports that all of her symptoms have resolved except for generalized weakness. She denies any smoking cigarettes, alcohol or illicit drug use. In the ED, vital signs were within normal limits. CBC showed a leukocytosis of 15. CMP showed a BUN of 25, glucose of 106. Initial troponin is 0.128, EKG showing sinus bradycardia. Patient is admitted for evaluation of presyncopal episode, cardiology on consult. Troponins were 0.128, 0.081, 0.085 with EKG showing sinus bradycardia. Cardiology was consulted and recommended no further intervention, attributes her symptoms to vasovagal prodrome. She was cleared for discharge from cardiology perspective. Orthostatic vitals were negative. Patient was seen and examined prior to discharge. No acute events overnight. Patient reports no further symptoms of dizziness, chest pain, shortness of breath or palpitations. No nausea or vomiting. No fever or chills. Eating lunch comfortably in bed. Looking for to going home. General: [non toxic], [no distress], [appears at stated age] Derm: [warm], [dry] Head: [atraumatic], [normocephalic], [symmetric] Eyes: [EOMI], [no lid lag], [anicteric sclera] Mouth: [no lip lesion], [mucus membranes moist] Cardiovascular: [S1S2 reg], [no murmur], [positive posterior tibial pulse bilateral], Lungs: [CTA bilateral], [no rhonchi, no rales] , [no accessory muscle use] Abdominal: [soft], [ nontender to palpation], [no guarding], [no appreciable organomegaly] Ext: [no gross muscle atrophy], [no edema], [no contractures] Neuro: [ CN II-XI grossly intact], [no focal neuro deficits] Psych: [Alert], [oriented], [appropriate affect] Assessment and Plan 1. Presyncopal episode, concerning for ACS. 2. Acute bronchitis with recent influenza infection 3. Troponin elevation 4. Elevated BUN 5. Atrial fibrillation 6. Hypertension 7. Anxiety/depression/bipolar 1. Orthostasis versus cardiac cause (murmurs or arrhythmias), concerns for ACS. Recent echocardiogram showing EF 55-60% with moderate LVH. Telemetry monitoring. Orthostats negative. ACS ruled out. 2. Chest x-ray shows no acute process. Patient is afebrile but with a mild leukocytosis of 15.0, result this morning. Continue Unasyn IV, changed to Augmentin on discharge. O2 per nasal cannula to maintain an O2 saturation greater than 92%. 3. Troponin 0.128, 0.081, 0.085 EKG showing sinus bradycardia. ACS ruled out. Recent echo in April 2018 shows no wall motion abnormalities. Cardiology consulted, recommends no further intervention or workup. Telemetry monitoring. 4. BUN 25-23, creatinine within normal limits. Likely due to dehydration. Continue normal saline at 100 mL/h. Daily BMP. 5. Rate controlled on metoprolol 25 mg by mouth twice a day. Continue Eliquis for anticoagulation. Follow cardiology consult. 6. BP 180/83. Continue losartan, metoprolol. Continue Lasix. Monitor vitals, adjust medications as necessary. 7. Continue Lexapro, nortriptyline. Patient admitted for presyncopal episode. ACS ruled out. Cardiology consulted, recommends no further workup. Patient is asymptomatic and would like to go home. Pertinent Studies: Chest x-ray Patient Condition at Discharge: Stable Plan - Discharge Summary Discharge Rx Participant: No New Discharge Prescriptions: Continue Montelukast [Singulair] 10 mg PO HS Famotidine 40 mg PO DAILY rOPINIRole HCL [Requip] 1 mg PO BID Nortriptyline [Pamelor] 20 mg PO HS Escitalopram [Lexapro] 40 mg PO DAILY Atorvastatin [Lipitor] 10 mg PO HS Metoprolol Tartrate [Lopressor] 25 mg PO BID Fexofenadine HCl [Anna Allergy] 180 mg PO DAILY Apixaban [Eliquis] 5 mg PO BID Terazosin [Hytrin] 5 mg PO DAILY Psyllium Husk 100% [Metamucil Packet] 6 gm PO HS Amoxicillin/Potassium Clav [Augmentin 875-125 Tablet] 1 tab PO BID 3 Days #6 tab Losartan [Cozaar] 100 mg PO DAILY #30 tab Furosemide [Lasix] 40 mg PO DAILY #30 tab Potassium Chloride ER [K-Dur 20] 20 meq PO DAILY #60 tab predniSONE See Taper PO DAILY Discharge Medication List Atorvastatin [Lipitor] 10 mg PO HS 12/17/16 [History] Escitalopram [Lexapro] 40 mg PO DAILY 12/17/16 [History] Famotidine 40 mg PO DAILY 12/17/16 [History] Montelukast [Singulair] 10 mg PO HS 12/17/16 [History] Nortriptyline [Pamelor] 20 mg PO HS 12/17/16 [History] rOPINIRole HCL [Requip] 1 mg PO BID 12/17/16 [History] Apixaban [Eliquis] 5 mg PO BID 11/26/17 [History] Fexofenadine HCl [Anna Allergy] 180 mg PO DAILY 11/26/17 [History] Metoprolol Tartrate [Lopressor] 25 mg PO BID 11/26/17 [History] Terazosin [Hytrin] 5 mg PO DAILY 04/16/18 [History] Psyllium Husk 100% [Metamucil Packet] 6 gm PO HS 04/17/18 [History] Amoxicillin/Potassium Clav [Augmentin 875-125 Tablet] 1 tab PO BID 3 Days #6 tab 04/21/18 [Rx] Furosemide [Lasix] 40 mg PO DAILY #30 tab 04/21/18 [Rx] Losartan [Cozaar] 100 mg PO DAILY #30 tab 04/21/18 [Rx] Potassium Chloride ER [K-Dur 20] 20 meq PO DAILY #60 tab 04/21/18 [Rx] predniSONE See Taper PO DAILY 04/23/18 [History] Follow up Appointment(s)/Referral(s): Debbie Guillen MD [STAFF PHYSICIAN] - 05/11/18 9:30 am Ken Benitez MD [STAFF PHYSICIAN] - 04/28/18 10:15 am Lan Wallace MD [Primary Care Provider] - 04/29/18 9:30 am (Friday) Patient Instructions/Handouts: Near Syncope (DC) Activity/Diet/Wound Care/Special Instructions: Readmit- recently discharged and given teaching about afib and influenza. Follow-up with PCP within 1-2 days of discharge. Follow-up with cardiology within 1 week of discharge. Follow up with pulmonology within 1 week of discharge. Take all medications as advised. Discharge Disposition: HOME SELF-CARE
[2018-04-24 14:44] LABS: Hemoglobin A1C 6.9 % (4.0-6.0)
== END 2018-04-24 15:19 | disposition home or self-care (01) | DRG 641 ==
LOC: EC 11:17 → 3SCARD 14:26
PROVIDERS: ADMIT Family Medicine; ATTEND Family Medicine
DX: E86.0 Dehydration (principal); I42.9 Cardiomyopathy, unspecified; R55 Syncope and collapse; E78.5 Hyperlipidemia, unspecified; F31.9 Bipolar disorder, unspecified; F41.9 Anxiety disorder, unspecified; G47.33 Obstructive sleep apnea (adult) (pediatric); I11.0 Hypertensive heart disease with heart failure; I48.91 Unspecified atrial fibrillation; I50.9 Heart failure, unspecified; J20.9 Acute bronchitis, unspecified; K21.9 Gastro-esophageal reflux disease without esophagitis; K44.9 Diaphragmatic hernia without obstruction or gangrene; D72.829 Elevated white blood cell count, unspecified; M19.90 Unspecified osteoarthritis, unspecified site; R01.1 Cardiac murmur, unspecified; R77.9 Abnormality of plasma protein, unspecified; G25.81 Restless legs syndrome; K57.90 Diverticulosis of intestine, part unspecified, without perforation or abscess without bleeding; M48.00 Spinal stenosis, site unspecified; G89.29 Other chronic pain; M25.552 Pain in left hip; M25.551 Pain in right hip; Z79.01 Long term (current) use of anticoagulants; Z79.899 Other long term (current) drug therapy; Z90.711 Acquired absence of uterus with remaining cervical stump; Z87.891 Personal history of nicotine dependence; Z86.73 Personal history of transient ischemic attack (TIA), and cerebral infarction without residual deficits; Z88.6 Allergy status to analgesic agent; Z88.5 Allergy status to narcotic agent; Z88.2 Allergy status to sulfonamides; Z88.8 Allergy status to other drugs, medicaments and biological substances; Z91.018 Allergy to other foods; Z96.60 Presence of unspecified orthopedic joint implant; Z98.42 Cataract extraction status, left eye; Z98.41 Cataract extraction status, right eye; Z96.1 Presence of intraocular lens; Z80.0 Family history of malignant neoplasm of digestive organs; Z82.49 Family history of ischemic heart disease and other diseases of the circulatory system
CPT/HCPCS: 36415; 71046; 80048; 80053; 83036; 83735; 83880; 84484; 85025; 85610; 85730; 93005; 94640; 96374; 99285

== ENCOUNTER → 2018-07-17 | Outpatient (CLI) | payer MEDICARE, BC ==
--- NOTE | 2018-07-21 11:22 | MM ---
Reason for exam: screening (asymptomatic). Last mammogram was performed 3 years and 5 months ago. History: Patient is postmenopausal. Family history of premenopausal breast cancer in grandmother and premenopausal breast cancer in sister at age 40. Benign stereotactic core biopsy of the right breast, July 02, 1999. Core biopsy of the right breast. Took estrogen for 10 years beginning at age 48. Took progesterone for 10 years beginning at age 48. Physical Findings: A clinical breast exam by your physician is recommended on an annual basis and results should be correlated with mammographic findings. MG 3D Screening Mammo W/Cad Bilateral CC and MLO view(s) were taken. Prior study comparison: February 15, 2015, bilateral MG 3d screening mammo w/cad. December 07, 2013, bilateral MG screening mammo w CAD. The breast tissue is heterogeneously dense. This may lower the sensitivity of mammography. Previous mammotome biopsy in the right breast. No significant changes when compared with prior studies. ASSESSMENT: Negative, BI-RAD 1 RECOMMENDATION: Routine screening mammogram of both breasts in 1 year.
== END | disposition home or self-care (01) ==
LOC: RADMAMWWP 11:48
PROVIDERS: ATTEND Family Medicine
DX: Z12.31 Encounter for screening mammogram for malignant neoplasm of breast (principal)
CPT/HCPCS: 77063; 77067

== ENCOUNTER → 2018-08-25 | Outpatient (CLI) | payer MEDICARE, BC ==
[2018-08-25 11:44] VITALS: BP 139/80; PULSE 69; RESP 18; TEMP 98.1; BMI 28.3
--- NOTE | 2018-08-25 12:28 | P.HPOB ---
History of Present Illness H&P Date: 08/25/18 Chief Complaint: The patient is here for her routine gynecologic exam. This is a 78-year-old with an LMP of 1994. She is status post vaginal hysterectomy with a and P repairs in 2001 for prolapse. The patient is without gynecologic complaints and is not sexually active. Review of Systems Her weight has been stable over the past 5 years. She denies respiratory, cardiac and G.I. problems. She denies maltreatment or problems with falling. : she has occasional leakage if she cannot get to the bathroom in time. She does wear pad. Past Medical History Past Medical History: Atrial Fibrillation, Chest Pain / Angina, Heart Failure, CVA/TIA, GERD/Reflux, Hyperlipidemia, Hypertension, Osteoarthritis (OA), Sleep Apnea/CPAP/BIPAP Additional Past Medical History / Comment(s): Other hx: DDD, DJD, SPINAL STENOSIS, chronic bilateral hip pain worse on R side, 2018 septic arthritis R wrist, occluded carotid right artery, TIA x 2, RLS, seasonal allergies, KEVIN with CPAP USED, UTIs, diverticular dx, HAD GERD IN PAST NONE SINCE HIATAL HERNIA SX.,CARDIOMYOPATHY, murmur. 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 History of Any Multi-Drug Resistant Organisms: None Reported Past Surgical History: Adenoidectomy, Appendectomy, Bladder Surgery, Cholecystectomy, Hysterectomy, Joint Replacement, Orthopedic Surgery, Tonsillec kelly Additional Past Surgical History / Comment(s): bilateral hip replacments, R rotator cuff repair, vaginal hysterectomy with anterior and posterior repairs in 2001, sinus sx twice, niko cataracts-lens implants, hiatal hernia sx, bladder suspension, L breast bx-benign. Carotid surgery. Past Anesthesia/Blood Transfusion Reactions: No Reported Reaction, Motion Sickness Past Psychological History: Anxiety, Bipolar, Depression Additional Psychological History / Comment(s): Pt is independant. Pt lives with spouse in 1 level home that has 2 porch steps. no home care services recieved. has a cpap machine. Pt drives. Smoking Status: Former smoker Past Alcohol Use History: None Reported Additional Past Alcohol Use History / Comment(s): started smoking at age 18(1958) and quit 2001. smoked 1 ppd. Past Drug Use History: None Reported Additional History: She has been since 1966 and is retired. Her has Parkinson's and dementia. - Past Family History Mother Family Medical History: Cancer Additional Family Medical History / Comment(s): colon cancer Father Family Medical History: Congestive Heart Failure (CHF) Sister(s) Family Medical History: Cancer Additional Family Medical History / Comment(s): Breast cancer Daughter(s) Family Medical History: Cancer Additional Family Medical History / Comment(s): Cancer of the appendix. Medications and Allergies Home Medications Medication Instructions Recorded Confirmed Type Atorvastatin [Lipitor] 10 mg PO HS 12/17/16 08/25/18 History Escitalopram [Lexapro] 40 mg PO DAILY 12/17/16 08/25/18 History Famotidine 40 mg PO DAILY 12/17/16 08/25/18 History Nortriptyline [Pamelor] 20 mg PO HS 12/17/16 08/25/18 History rOPINIRole HCL [Requip] 1 mg PO BID 12/17/16 08/25/18 History Apixaban [Eliquis] 5 mg PO BID 11/26/17 08/25/18 History Metoprolol Tartrate [Lopressor] 25 mg PO BID 11/26/17 08/25/18 History Terazosin [Hytrin] 5 mg PO DAILY 04/16/18 08/25/18 History Psyllium Husk 100% [Metamucil 6 gm PO HS 04/17/18 08/25/18 History Packet] Losartan [Cozaar] 100 mg PO DAILY #30 tab 04/21/18 08/25/18 Rx ALPRAZolam [Xanax] 0.25 mg PO HS PRN 08/25/18 08/25/18 History Allergies Allergy/AdvReac Type Severity Reaction Status Date / Time acetaminophen [From [place]] Allergy Rash/Hives Verified 08/25/18 11:45 hydrocodone [From [place]] Allergy Rash/Hives Verified 08/25/18 11:45 Sulfa (Sulfonamide Allergy Rash/Hives Verified 08/25/18 11:45 Antibiotics) aripiprazole [From Abilify] AdvReac Hallucinati Verified 08/25/18 11:45 ons banana AdvReac Nausea & Verified 08/25/18 11:45 Vomiting & Diarrhea bupropion [From Wellbutrin] AdvReac Hallucinati Verified 08/25/18 11:45 ons codeine AdvReac Nausea & Verified 08/25/18 11:45 Vomiting morphine AdvReac Nausea & Verified 08/25/18 11:45 Vomiting nitrofurantoin AdvReac Unknown Verified 08/25/18 11:45 propoxyphene [From Darvon] AdvReac Nausea & Verified 08/25/18 11:45 Vomiting Exam Vital Signs Temp Pulse Resp BP Pulse Ox 08/25/18 11:38 98.1 F 69 18 139/80 96 Intake and Output 08/24/18 08/25/18 08/25/18 22:59 06:59 14:59 Other: Weight 72.575 kg Height 5'3", weight 160 pounds, BMI 28.3. This is a well-developed well-nourished white female who is alert and oriented times 3 in no acute distress. HEENT: Within normal limits. NECK: Supple without mass or thyromegaly. CHEST AND LUNGS: Clear to auscultation. HEART: Regular rate and rhythm. BREASTS: Are without mass or discharge. AXILLARY EXAM: Negative for adenopathy. BACK: Negative for CVA tenderness. ABDOMEN: Soft, nontender, without palpable masses. PELVIC EXAM: External genitalia appears normal with moderate atrophy. Vagina appears normal with mild to moderate atrophy. There is no evidence of prolapse. Bimanual examination is negative for mass or tenderness. RECTAL EXAM: Rectovaginal exam is negative for mass or tenderness and is negative for occult blood. There are small external hemorrhoids which are nontender and noninflamed. EXTREMITIES: Nontender. IMPRESSION: 1. 78-year-old menopausal female status post vaginal hysterectomy with a and P repairs for prolapse. Normal gynecologic exam. 2. History of mild osteopenia. 3. Mild urge incontinence without significant physical findings at this time. PLAN: 1. Pap smears have been discontinued. 2. Self breast awareness was discussed with the patient. 3. Screening mammogram was done on 07/17/2018 and was benign. 4. Osteoporosis prevention was discussed. I have stressed the importance of adequate calcium, vitamin D and regular exercise. Recommended amounts of calcium and vitamin D were also discussed. She states she had a bone density test done earlier this year through Dr. Wallace and this was stable for the patient. 5. She may be due for a colonoscopy with her family history of colon cancer. She will discuss this with Dr. Wallace. 6. Recommended Kegal exercises and timed voids. We've discussed how to do these. 7. I recommended that she return in one to 2 years for her well woman exam.
== END | disposition home or self-care (01) ==
LOC: WWCWWP 11:19
PROVIDERS: ATTEND Obstetrics & Gynecology
DX: Z53.9 Procedure and treatment not carried out, unspecified reason (principal)

== ENCOUNTER → 2018-09-15 | Outpatient (CLI) | payer MEDICARE, BC | END | disposition home or self-care (01) | LOC: LABWHC1 10:05 | PROVIDERS: ATTEND Orthopaedic Surgery | DX: M79.671 Pain in right foot (principal); S92.351A Displaced fracture of fifth metatarsal bone, right foot, initial encounter for closed fracture | CPT/HCPCS: 36415; 82306 ==

== ENCOUNTER → 2018-11-19 | Outpatient (CLI) | payer MEDICARE, BC ==
--- NOTE | 2018-11-19 18:34 | PN ---
PROGRESS NOTE DATE OF SERVICE: 11/19/2018 This patient is a 78-year-old lady who has been followed in [facility] for treatment of obstructive sleep apnea-hypopnea syndrome. The patient successfully continues to use her CPAP equipment without problems related to mask fitting, pressure or humidification. She is also getting her CPAP supplies on time. Holden Sleepiness Scale today is 5, which is absolutely normal. I checked her CPAP unit. CPAP pressure is 11 cm of water. Usage is 23/30 nights for more than 4 hours with average usage 6.2 hours per night. Leak is L/minute, which is acceptable. Apnea-hypopnea index is 2.9, which is in normal range. MEDICATIONS: 1. Allopurinol. 2. Terazosin. 3. Lexapro. 4. Losartan. 5. Atorvastatin. 6. Eliquis. 7. Nortriptyline. 8. Xanax. 9. Ropinirole. 10.Metoprolol. PHYSICAL EXAMINATION: GENERAL: A pleasant patient in no distress. VITAL SIGNS: BP 136/75, HR 58, RR 16, height 5 feet 2-1/2 inches, weight 159 pounds, body mass index 28.6, temperature 98.2, oxygen saturation at room air 96%. HEENT: PERRLA, EOMI. Evaluation of oropharynx showed tongue protrudes midline. Low position of soft palate. Mallampati III to IV. NECK: Supple. No JVD. Thyroid is not palpable. LUNGS: Clear to percussion and to auscultation. Good air exchange. No wheezing or rhonchi. HEART: S1, S2 regular. No murmurs, gallops or rubs. ABDOMEN: Soft. No tenderness. EXTREMITIES: No clubbing or cyanosis. ENGINEER SYSTEMS: Awake, alert, and oriented X3. Cranial nerves 2 to 7 intact. There is no fasciculation or atrophy. noted. No focal deficits observed. IMPRESSION: 1. Obstructive sleep apnea-hypopnea syndrome. Patient demonstrated good compliance with treatment, benefitting from treatment. 2. Hypertension. 3. Hyperlipidemia. 4. Restless legs syndrome; on treatment with ropinirole, no problems with the legs. 5. Seasonal allergies. 6. History of depression. PLAN: 1. Patient will continue to use CPAP equipment every night. 2. I will maintain prescriptions for all necessary CPAP supplies, including mask, tube, filters. 3. Precautions related to driving. No driving if feeling any sleepiness. 4. Sleep hygiene with regular time in bed for 7-1/2 to 8 hours. Thank you very much for allowing me to participate in the management of your patient. Sincerely, Rk White MD, PhD, FAASM Diplomat of [place] [employer] [place] [employer] Music Library Assistant [facility] MMODL / IJN: [id number] /
== END | disposition home or self-care (01) ==
LOC: SLEEP 15:34
PROVIDERS: ATTEND Internal Medicine
DX: G47.33 Obstructive sleep apnea (adult) (pediatric) (principal); I10 Essential (primary) hypertension; E78.5 Hyperlipidemia, unspecified; G25.81 Restless legs syndrome; J30.2 Other seasonal allergic rhinitis; Z99.89 Dependence on other enabling machines and devices; Z86.59 Personal history of other mental and behavioral disorders; Z79.01 Long term (current) use of anticoagulants; Z79.899 Other long term (current) drug therapy

== ENCOUNTER → 2020-02-01 | Outpatient (CLI) | payer MEDICARE, BC ==
[2020-02-01 11:52] VITALS: BP 126/78; PULSE 62; RESP 18; TEMP 98.2
--- NOTE | 2020-02-01 12:31 | P.HPOB ---
History of Present Illness H&P Date: 02/01/20 Chief Complaint: The patient is here for her routine gynecologic exam and ma mmogram. This is an 80-year-old with an LMP of 1994. She is status post vaginal hysterectomy with a and P repairs in 2001 for prolapse. She is without gynecologic complaints. Review of Systems Weight has been stable.. She denies respiratory, cardiac and G.I. problems. She denies maltreatment or problems with falling. : She does have some urinary leakage and does wear Depends. Past Medical History Past Medical History: Atrial Fibrillation, Chest Pain / Angina, Heart Failure, CVA/TIA, GERD/Reflux, Hyperlipidemia, Hypertension, Osteoarthritis (OA), Sleep Apnea/CPAP/BIPAP Additional Past Medical History / Comment(s): Other hx: DDD, DJD, SPINAL STENOSIS, chronic bilateral hip pain worse on R side, 2018 septic arthritis R wrist, occluded carotid right artery, TIA x 2, RLS, seasonal allergies, KEVIN with CPAP USED, UTIs, diverticular dx, HAD GERD IN PAST NONE SINCE HIATAL HERNIA SX.,CARDIOMYOPATHY, murmur. 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 History of Any Multi-Drug Resistant Organisms: None Reported Past Surgical History: Adenoidectomy, Appendectomy, Bladder Surgery, Cholecystectomy, Hysterectomy, Joint Replacement, Orthopedic Surgery, Tonsillectomy Additional Past Surgical History / Comment(s): bilateral hip replacments, R rotator cuff repair, vaginal hysterectomy with anterior and posterior repairs in 2001, sinus sx twice, niko cataracts-lens implants, hiatal hernia sx, bladder suspension, L breast bx-benign. Carotid surgery. Colonoscopy. Past Anesthesia/Blood Transfusion Reactions: No Reported Reaction, Motion Sickness Past Psychological History: Anxiety, Bipolar, Depression Additional Psychological History / Comment(s): Pt is independant. Pt lives with spouse in 1 level home that has 2 porch steps. no home care services recieved. has a cpap machine. Pt drives. Smoking Status: Former smoker Past Alcohol Use History: None Reported Additional Past Alcohol Use History / Comment(s): started smoking at age 18(1958) and quit 2001. smoked 1 ppd. Past Drug Use History: None Reported Additional History: She is a . Her in 2019. [facility] and 2 of her children live nearby. - Past Family History Mother Family Medical History: Cancer Additional Family Medical History / Comment(s): colon cancer Father Family Medical History: Congestive Heart Failure (CHF) Sister(s) Family Medical History: Cancer Additional Family Medical History / Comment(s): Breast cancer Daughter(s) Family Medical History: Cancer Additional Family Medical History / Comment(s): Cancer of the appendix. Medications and Allergies Home Medications Medication Instructions Recorded Confirmed Type Atorvastatin [Lipitor] 10 mg PO HS 12/17/16 02/01/20 History Escitalopram [Lexapro] 40 mg PO DAILY 12/17/16 02/01/20 History Famotidine 40 mg PO DAILY 12/17/16 02/01/20 History Nortriptyline [Pamelor] 20 mg PO HS 12/17/16 02/01/20 History rOPINIRole HCL [Requip] 1 mg PO BID 12/17/16 02/01/20 History Apixaban [Eliquis] 5 mg PO BID 11/26/17 02/01/20 History Metoprolol Tartrate [Lopressor] 25 mg PO BID 11/26/17 02/01/20 History Terazosin [Hytrin] 5 mg PO DAILY 04/16/18 02/01/20 History Psyllium Husk 100% [Metamucil 6 gm PO HS 04/17/18 02/01/20 History Packet] Losartan [Cozaar] 100 mg PO DAILY #30 tab 04/21/18 02/01/20 Rx ALPRAZolam [Xanax] 0.25 mg PO HS PRN 08/25/18 02/01/20 History Allopurinol [Zyloprim] 100 mg PO DAILY 02/01/20 02/01/20 History Allergies Allergy/AdvReac Type Severity Reaction Status Date / Time acetaminophen [From [place]] Allergy Rash/Hives Verified 02/01/20 11:45 hydrocodone [From [place]] Allergy Rash/Hives Verified 02/01/20 11:45 Sulfa (Sulfonamide Allergy Rash/Hives Verified 02/01/20 11:45 Antibiotics) aripiprazole [From Abilify] AdvReac Hallucinati Verified 02/01/20 11:45 ons banana AdvReac Nausea & Verified 02/01/20 11:45 Vomiting & Diarrhea bupropion [From Wellbutrin] AdvReac Hallucinati Verified 02/01/20 11:45 ons codeine AdvReac Nausea & Verified 02/01/20 11:45 Vomiting morphine AdvReac Nausea & Verified 02/01/20 11:45 Vomiting nitrofurantoin AdvReac Unknown Verified 02/01/20 11:45 propoxyphene [From Darvon] AdvReac Nausea & Verified 02/01/20 11:45 Vomiting Exam Vital Signs Temp Pulse Resp BP Pulse Ox 02/01/20 11:48 98.2 F 62 18 126/78 97 Intake and Output 01/31/20 02/01/20 02/01/20 22:59 06:59 14:59 Other: Weight 72.575 kg Height 5 feet 3 inches, weight 160 pounds, BMI 28.3. This is a well-developed well-nourished white female who is alert and oriented times 3 in no acute distress. HEENT: Within normal limits. NECK: Supple without mass or thyromegaly. CHEST AND LUNGS: Clear to auscultation. HEART: Regular rate and rhythm. BREASTS: Are without mass or discharge. AXILLARY EXAM: Negative for adenopathy. BACK: Negative for CVA tenderness. ABDOMEN: Soft, nontender, without palpable masses. PELVIC EXAM: External genitalia appears normal with mild to moderate atrophy. Vagina appears normal of mild to moderate atrophy. There is no evidence of prolapse. Bimanual examination is negative for mass or tenderness. RECTAL EXAM: Rectovaginal exam is negative for mass or tenderness and is neg ative for occult blood. EXTREMITIES: Nontender. IMPRESSION: 1. 80-year-old menopausal female status post vaginal hysterectomy with A&P repairs for benign reasons with normal gynecologic exam. 2. Chronic urinary incontinence without significant physical findings at this time. 3. History of osteopenia. PLAN: 1. Pap smears have been discontinued. 2. Self breast awareness was discussed with the patient. 3. Screening mammogram will be done today. 4. Osteoporosis prevention was discussed. I have stressed the importance of adequate calcium, vitamin D and regular exercise. Recommended amounts of calcium and vitamin D were also discussed. Bone density testing done through her PCP. 5. Colorectal cancer screening was discussed. She will discuss with her PCP whether she is due for colonoscopy. 6. I have offered a referral to a gynecologic urologist since she has been seeing a urologist, Dr. Munoz, without much improvement of her urinary incontinence. She will consider this and let me know if she would like a referral. 7. The patient was advised to return in 1-2 years for her well woman examination.
--- NOTE | 2020-02-02 11:58 | MM ---
Reason for exam: screening (asymptomatic). Last mammogram was performed 1 year and 6 months ago. History: Patient is postmenopausal. Family history of premenopausal breast cancer in grandmother and premenopausal breast cancer in sister at age 40. Benign stereotactic core biopsy of the right breast, July 02, 1999. Core biopsy of the right breast. Took hormonal contraceptives for 50 years. Took estrogen for 10 years beginning at age 48. Took progesterone for 10 years beginning at age 48. Physical Findings: A clinical breast exam by your physician is recommended on an annual basis and results should be correlated with mammographic findings. MG 3D Screening Mammo W/Cad Bilateral CC and MLO view(s) were taken. Prior study comparison: July 17, 2018, bilateral MG 3d screening mammo w/cad. February 15, 2015, bilateral MG 3d screening mammo w/cad. The breast tissue is heterogeneously dense. This may lower the sensitivity of mammography. Stable benign calcifications. Focal asymmetry upper outer right breast middle third position. ASSESSMENT: Incomplete: need additional imaging evaluation, BI-RAD 0 RECOMMENDATION: Special view mammogram of the right breast. If lesion persists on supplemental views, image directed ultrasound is recommended. [facility] will attempt to contact patient to return for supplemental views and ultrasound if indicated.
== END | disposition home or self-care (01) ==
LOC: WWCWWP 11:35
PROVIDERS: ATTEND Obstetrics & Gynecology
DX: Z12.31 Encounter for screening mammogram for malignant neoplasm of breast (principal)
CPT/HCPCS: 77063; 77067

== ENCOUNTER → 2020-02-14 | Outpatient (CLI) | payer MEDICARE, BC ==
--- NOTE | 2020-02-15 09:21 | MM ---
Reason for exam: additional evaluation requested from abnormal screening. Last mammogram was performed less than 1 month ago. History: Patient is postmenopausal. Family history of premenopausal breast cancer in grandmother and premenopausal breast cancer in sister at age 40. Benign stereotactic core biopsy of the right breast, July 02, 1999. Core biopsy of the right breast. Took hormonal contraceptives for 50 years. Took estrogen for 10 years beginning at age 48. Took progesterone for 10 years beginning at age 48. Physical Findings: Nurse did not find any significant physical abnormalities on exam. MG 3D Work Up W/Cad RT Spot compression CC, spot compression MLO, and LM view(s) were taken of the right breast. Prior study comparison: February 01, 2020, bilateral MG 3d screening mammo w/cad. July 17, 2018, bilateral MG 3d screening mammo w/cad. The breast tissue is heterogeneously dense. This may lower the sensitivity of mammography. Lateral asymmetric densities disperse on additional views. No significant new findings when compared with previous films. These results were verbally communicated with the patient and result sheet given to the patient on 02/14/20. ASSESSMENT: Negative, BI-RAD 1 RECOMMENDATION: Return to routine screening mammogram schedule for both breasts.
== END ==
LOC: RADMAMWWP 15:12
PROVIDERS: ATTEND Obstetrics & Gynecology
DX: R92.8 Other abnormal and inconclusive findings on diagnostic imaging of breast (principal)
CPT/HCPCS: 77065; G0279; 77061

== ENCOUNTER → 2020-07-04 | Outpatient (CLI) | payer MEDICARE, BC ==
--- NOTE | 2020-07-04 16:04 | XR ---
EXAMINATION TYPE: XR chest 2V DATE OF EXAM: 07/04/2020 COMPARISON: Chest x-ray 05/11/2018, 04/23/2018, CT 12/19/2016 HISTORY: R05, cough TECHNIQUE: Frontal and lateral views of the chest are obtained. FINDINGS: There is no focal air space opacity, pleural effusion, or pneumothorax seen. The cardiac silhouette size is within normal limits. Interstitium is increased. The osseous structures are intac t, postop change, suture anchors present in the proximal right humerus, there are arthropathy changes in the acromioclavicular joints. Surgical clips are present in the right upper quadrant. There is underlying emphysema. IMPRESSION: No acute cardiopulmonary process. Probable scarring, interstitial lung disease, emphysem a
== END | disposition home or self-care (01) ==
LOC: RADXRMAIN 13:44
PROVIDERS: ATTEND Otolaryngology
DX: R05 Cough (principal)
CPT/HCPCS: 71046

== ENCOUNTER → 2020-07-19 | Outpatient (CLI) | payer MEDICARE, BC ==
--- NOTE | 2020-07-20 06:21 | SFUN ---
SLEEP CENTER FOLLOW UP NOTE DATE OF SERVICE: 07/19/2020 80-year-old lady has been followed in Sleep Center for treatment of obstructive sleep apnea-hypopnea syndrome. Patient continued to use her CPAP equipment every night for the whole night. Getting her supplies in time. He[place]rick Sleepiness Scale today is 3, which is totally normal. I checked the CPAP unit. CPAP pressures of 11 cm of water. Usage is 26/30 nights and 24/30 nights for more than 4 hours. Average usage is 6.8 hours per night. Leak is probably minimal 2 L/minute. Apnea-hypopnea index is 1.5, which is perfect. MEDICATIONS: Allopurinol 100 mg once a day. Ropinirole 1 mg 2 tablets a day. Losartan 100 mg once a day. Losartan 100 mg once a day. Lexapro 20 mg once a day. Nortriptyline 10 mg 2 tablets a day, atorvastatin 10 mg once a day. Metoprolol 25 mg twice a day. Eliquis 5 mg twice a day. Terazosin 5 mg once a day, famotidine 40 mg once a day. PHYSICAL EXAMINATION: GENERAL: Patient in no distress. BP 121/81, HR 81, RR 15, height 5 feet, weight 169.0, BMI 29.9, temperature 97.4, oxygen saturation at room air 96%. Oropharynx low position of soft palate, Mallampati 3-4. NECK: Supple, no JVD. Thyroid is not palpable. LUNGS: Clear to percussion and to auscultation. Good air exchange. No wheezing or rhonchi. HEART: S1, S2 regular. No murmurs, gallops, or rubs. ABDOMEN: Soft and nontender. Bowel sounds are present. No organomegaly appreciated. EXTREMITIES: No clubbing or cyanosis. FISH CONSERVATIONIST: Awake, alert, and oriented X3. Cranial nerves 2 to 7 intact. There is no fasciculation or atrophy. noted. No focal deficits observed. IMPRESSION: 1. Obstructive sleep apnea-hypopnea syndrome. Patient demonstrated great compliance with treatment. Normal respiration on treatment. 2. Hypertension. 3. Hyperlipidemia. 4. Restless legs syndrome, on treatment with Allopurinol. 5. Seasonal allergies. 6. History of depression. 7. Status post carotid endarterectomy. Atherosclerosis of carotids. PLAN: 1. Patient will continue to use PAP equipment every night for the whole night. 2. Sleep hygiene with regular time in bed for at least 7-1/2 to 8 hours. 3. Precautions related to driving. No driving if feeling sleepiness. 4. I will maintain all necessary prescription for PAP supplies including mask, tube, filters. 5. Watching weight. 6. Follow-up visit in 6 months or earlier if patient has any problems. Thank you very much for allowing me to participate in management of your patient. Rk White MD, PhD, FAASM Diplomat of [place] [employer] [place] [employer] Quality Technician of [facility] [place] MMODL / IJN: [id number] /
== END ==
LOC: SLEEP 11:29
PROVIDERS: ATTEND Internal Medicine
DX: G47.33 Obstructive sleep apnea (adult) (pediatric) (principal); I10 Essential (primary) hypertension; E78.5 Hyperlipidemia, unspecified; J30.2 Other seasonal allergic rhinitis; G25.81 Restless legs syndrome; F32.9 Major depressive disorder, single episode, unspecified; Z98.62 Peripheral vascular angioplasty status; Z99.81 Dependence on supplemental oxygen; Z79.899 Other long term (current) drug therapy; Z88.5 Allergy status to narcotic agent; Z88.6 Allergy status to analgesic agent; Z88.2 Allergy status to sulfonamides; Z91.018 Allergy to other foods; Z88.1 Allergy status to other antibiotic agents; Z88.8 Allergy status to other drugs, medicaments and biological substances; Z87.891 Personal history of nicotine dependence

== ENCOUNTER → 2020-09-22 | Outpatient (CLI) | payer MEDICARE, BC ==
--- NOTE | 2020-09-22 12:20 | CT ---
EXAMINATION TYPE: CT chest wo con DATE OF EXAM: 09/22/2020 COMPARISON: Chest x-ray 07/04/2020 HISTORY: Shortness of breath and upper back pain. CT DLP: 555.1 mGycm. Automated Exposure Control for Dose Reduction was Utilized. TECHNIQUE: CT scan high-resolution of the thorax is performed without IV contrast. FINDINGS: LUNGS: There is a similar interlobular septal involving both upper and lower lobes compatible with pu lmonary fibrosis. Central and basilar bronchiectasis noted. No consolidative pneumonia. Apical pleura l thickening noted. Diffuse emphysematous changes are noted with greater involvement involving the u pper lung zones. 4 mm nodule left lower lobe MEDIASTINUM: Lack of IV contrast is noted to limit evaluation for mediastinal and especially hilar ad enopathy. There are no definitive greater than 1 cm hilar or mediastinal lymph nodes. Atherosclerotic change of the aorta. Tiny pericardial effusion. Heart size mildly prominent there is coronary artery calcification. Small hiatal hernia.. OTHER: Surgical clips in the gallbladder fossa and hypodensity within the right lobe liver is indeter minate by noncontrast technique. Hypertrophic and degenerative change of the spine. Upper abdominal a janelle is prominent but only partially included and should be correlated with ultrasound to exclude ane urysm. IMPRESSION: 1. Moderate changes of pulmonary fibrosis 2. COPD 3. 4 mm left lower lobe pulmonary nodule too small to characterize. 12 month follow-up recommended. 4. Coronary artery calcification. 5. Possible abdominal aortic aneurysm not included in the [id number] recommend follow-up ultrasoun d of the abdominal aorta. 6. Small pericardial effusion with coronary artery calcification.
== END | disposition home or self-care (01) ==
LOC: RADCTMAIN 11:17
PROVIDERS: ATTEND Internal Medicine Critical Care Medicine
DX: J44.9 Chronic obstructive pulmonary disease, unspecified (principal); I31.3 Pericardial effusion (noninflammatory); J84.10 Pulmonary fibrosis, unspecified; I25.10 Atherosclerotic heart disease of native coronary artery without angina pectoris
CPT/HCPCS: 71250

== ENCOUNTER → 2021-03-20 | Outpatient (CLI) | payer MEDICARE, BC ==
[2021-03-20 11:46] VITALS: BP 147/93; PULSE 66; RESP 18; TEMP 98.4
--- NOTE | 2021-03-20 12:23 | P.HPOB ---
History of Present Illness H&P Date: 03/20/21 Chief Complaint: The patient is here for her routine gynecologic exam and ma mmogram. This is an 81-year-old 004 with an LMP of 1994. She is status post vaginal hysterectomy with A and P repairs in 2001 for prolapse. The patient is without gynecologic complaints. Review of Systems Weight has been stable. She denies cardiac or GI problems. Respiratory: She has had occasional shortness of breath and is seeing a dramatic reader for this wh o recently diagnosed her with pulmonary fibrosis. Past Medical History Past Medical History: Atrial Fibrillation, Chest Pain / Angina, Heart Failure, CVA/TIA, GERD/Reflux, Hyperlipidemia, Hypertension, Osteoarthritis (OA), Sleep Apnea/CPAP/BIPAP Additional Past Medical History / Comment(s): Pulmonary fibrosis. Other hx: DDD, DJD, SPINAL STENOSIS, chronic bilateral hip pain worse on R side, 2018 septic arthritis R wrist, occluded carotid right artery, TIA x 2, RLS, seasonal allergies, KEVIN with CPAP USED, UTIs, diverticular dx, HAD GERD IN PAST NONE SINCE HIATAL HERNIA SX.,CARDIOMYOPATHY, murmur. 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 History of Any Multi-Drug Resistant Organisms: None Reported Past Surgical History: Adenoidectomy, Appendectomy, Bladder Surgery, Cholecystectomy, Hysterectomy, Joint Replacement, Orthopedic Surgery, Tonsillectomy Additional Past Surgical History / Comment(s): bilateral hip replacments, R rotator cuff repair, vaginal hysterectomy with anterior and posterior repairs in 2001, sinus sx twice, niko cataracts-lens implants, hiatal hernia sx, bladder suspension, L breast bx-benign. Carotid surgery. Colonoscopy. Past Anesthesia/Blood Transfusion Reactions: No Reported Reaction, Motion Sickness Past Psychological History: Anxiety, Bipolar, Depression Additional Psychological History / Comment(s): Pt is independant. Pt lives with spouse in 1 level home that has 2 porch steps. no home care services recieved. has a cpap machine. Pt drives. Smoking Status: Former smoker Past Alcohol Use History: None Reported Additional Past Alcohol Use History / Comment(s): started smoking at age [age]) and quit 2001. smoked 1 ppd. Past Drug Use History: None Reported Additional History: She has been a since 2027. She is not sexually active. She lives on her own in a [facility] and 2 of her children live [facility]. - Past Family History Mother Family Medical History: Cancer Additional Family Medical History / Comment(s): colon cancer Father Family Medical History: Congestive Heart Failure (CHF) Sister(s) Family Medical History: Cancer Additional Family Medical History / Comment(s): Breast cancer Daughter(s) Family Medical History: Cancer Additional Family Medical History / Comment(s): Cancer of the appendix. Medications and Allergies Home Medications Medication Instructions Recorded Confirmed Type Atorvastatin [Lipitor] 10 mg PO HS 12/17/16 03/20/21 History Escitalopram [Lexapro] 40 mg PO DAILY 12/17/16 03/20/21 History Famotidine 40 mg PO DAILY 12/17/16 03/20/21 History Nortriptyline [Pamelor] 20 mg PO HS 12/17/16 03/20/21 History rOPINIRole HCL [Requip] 1 mg PO BID 12/17/16 03/20/21 History Apixaban [Eliquis] 5 mg PO BID 11/26/17 03/20/21 History Metoprolol Tartrate [Lopressor] 25 mg PO BID 11/26/17 03/20/21 History Terazosin [Hytrin] 5 mg PO DAILY 04/16/18 03/20/21 History Psyllium Husk 100% [Metamucil 6 gm PO HS 04/17/18 03/20/21 History Packet] Losartan [Cozaar] 100 mg PO DAILY #30 tab 04/21/18 03/20/21 Rx Allopurinol [Zyloprim] 100 mg PO DAILY 02/01/20 03/20/21 History Fexofenadine HCl [Anna Allergy] 180 mg PO DAILY 03/20/21 03/20/21 History Montelukast [Singulair] 10 mg PO HS 03/20/21 03/20/21 History Allergies Allergy/AdvReac Type Severity Reaction Status Date / Time acetaminophen [From [place]] Allergy Rash/Hives Verified 03/20/21 11:50 hydrocodone [From [place]] Allergy Rash/Hives Verified 03/20/21 11:50 Sulfa (Sulfonamide Allergy Rash/Hives Verified 03/20/21 11:50 Antibiotics) aripiprazole [From Abilify] AdvReac Hallucinati Verified 03/20/21 11:50 ons banana AdvReac Nausea & Verified 03/20/21 11:50 Vomiting & Diarrhea bupropion [From Wellbutrin] AdvReac Hallucinati Verified 03/20/21 11:50 ons codeine AdvReac Nausea & Verified 03/20/21 11:50 Vomiting morphine AdvReac Nausea & Verified 03/20/21 11:50 Vomiting nitrofurantoin AdvReac Unknown Verified 03/20/21 11:50 propoxyphene [From [place]] AdvReac Nausea & Verified 03/20/21 11:50 Vomiting Exam Vital Signs Temp Pulse Resp BP Pulse Ox 03/20/21 11:41 98.4 F 66 18 147/93 96 Intake and Output 03/19/21 03/20/21 03/20/21 22:59 06:59 14:59 Other: Weight 72.121 kg Height 5 feet 3 inches, weight 159 pounds, BMI 28.2. This is a well-developed well-nourished white female who is alert and oriented times 3 in no acute distress. HEENT: Within normal limits. NECK: Supple without mass or thyromegaly. CHEST AND LUNGS: Clear to auscultation. HEART: Regular rate and rhythm. BREASTS: Are without mass or discharge. AXILLARY EXAM: Negative for adenopathy. BACK: Negative for CVA tenderness. ABDOMEN: Soft, nontender, without palpable masses. PELVIC EXAM: External genitalia appears normal with moderate atrophy. Vagina appears normal with moderate atrophy. There is no evidence of prolapse. Bimanual examination is negative for mass or tenderness. RECTAL EXAM: Rectovaginal exam is negative for mass or tenderness and is negative for occult blood. EXTREMITIES: Nontender. IMPRESSION: 1. 81-year-old menopausal female who is status post vaginal hysterectomy for benign reasons, with normal gynecologic exam. 2. History of osteopenia 3. History of chronic urinary incontinence without significant prolapse on exam today. PLAN: 1. Pap smears have been discontinued. 2. Self breast awareness was discussed with the patient. We have also discussed symptoms associated with inflammatory breast cancer. 3. Screening mammogram will be done today. 4. Osteoporosis prevention was discussed. I have stressed the importance of adequate calcium, vitamin D and regular exercise. Recommended amounts of calcium and vitamin D were also discussed. Bone density testing has been done through her PCP and she states she will continue to do it this way. 5. Colorectal cancer screening was discussed. She can discuss with her PCP options for colorectal cancer screening. 6. She has completed her Covid vaccination series And has received her booster as well. 7. The patient was advised to return in 1-2 years for her well woman examination.
--- NOTE | 2021-03-22 11:12 | MM ---
Reason for exam: screening (asymptomatic). Last mammogram was performed 1 year and 1 month ago. History: Patient is postmenopausal. Family history of premenopausal breast cancer in grandmother and premenopausal breast cancer in sister at age 40. Benign stereotactic core biopsy of the right breast, July 02, 1999. Core biopsy of the right breast. Took hormonal contraceptives for 50 years. Took estrogen for 10 years beginning at age 48. Took progesterone for 10 years beginning at age 48. Physical Findings: A clinical breast exam by your physician is recommended on an annual basis and results should be correlated with mammographic findings. MG 3D Screening Mammo W/Cad Bilateral CC and MLO view(s) were taken. Prior study comparison: February 14, 2020, right breast MG 3d work up w/cad RT. February 01, 2020, bilateral MG 3d screening mammo w/cad. The breast tissue is heterogeneously dense. This may lower the sensitivity of mammography. There is chronic nodularity in the right breast. Benign bilateral vascular and scattered round calcifications. No significant changes when compared with prior studies. ASSESSMENT: Benign, BI-RAD 2 RECOMMENDATION: Routine screening mammogram of both breasts in 1 year.
== END ==
LOC: WWCWWP 11:16
PROVIDERS: ATTEND Obstetrics & Gynecology
DX: Z01.419 Encounter for gynecological examination (general) (routine) without abnormal findings (principal); Z12.31 Encounter for screening mammogram for malignant neoplasm of breast; I48.91 Unspecified atrial fibrillation; I11.0 Hypertensive heart disease with heart failure; I50.9 Heart failure, unspecified; E78.5 Hyperlipidemia, unspecified; Z80.3 Family history of malignant neoplasm of breast; Z90.711 Acquired absence of uterus with remaining cervical stump; Z87.39 Personal history of other diseases of the musculoskeletal system and connective tissue; M19.90 Unspecified osteoarthritis, unspecified site; F41.9 Anxiety disorder, unspecified; F31.9 Bipolar disorder, unspecified; Z87.891 Personal history of nicotine dependence; Z86.73 Personal history of transient ischemic attack (TIA), and cerebral infarction without residual deficits; Z79.899 Other long term (current) drug therapy; Z87.448 Personal history of other diseases of urinary system; Z88.6 Allergy status to analgesic agent; Z88.5 Allergy status to narcotic agent; Z88.2 Allergy status to sulfonamides; Z91.018 Allergy to other foods
CPT/HCPCS: 77063; 77067

== ENCOUNTER → 2021-08-01 | Outpatient (CLI) | payer MEDICARE, BC ==
--- NOTE | 2021-08-01 16:01 | P.PN ---
Subjective DATE: 08/01/2021 FOLLOW UP VISIT. Patient with obstructive sleep apnea hypopnea syndrome return to sleep center for follow-up visit. Patient is using PAP equipment every night for the whole night, getting PAP supplies in time. The patient does not have significant problems with the mask, PAP unit. Patient asked to increase humidification. [place] sleepiness scale is 5. I checked information from PAP unit. Air filter in bed condition. PAP unit pressure 11 cm H2O. Usage is 85 % for more then 4 hours, average 6.7 hours per night. Leak is 0 l/m, which is perfect . Apnea Hypopnea Index is 1.6, which is normal. MEDICATIONS:1. Ropinirole 1 mg 2. Losartan 50 mg once a day 3. Lexapro 20 mg once a day 4. Nortriptyline 10 mg 2 tablets in the evening 5. Allopurinol 100 mg once a day 6. Singulair 10 mg once a day 7. Anna 180 mg once a day 8. Atorvastatin 10 mg once a day 9. Eliquis 5 mg twice a day 10. Pepcid 40 mg once a day 11. BuSpar 10 mg twice a day 12. Wellbutrin 13. Abilify During physical exam: GENERAL: A pleasant patient without any distress. VITAL SIGNS: BP 164/89, HR 78, RR 20, weight 162, temperature 97.4, oxygen saturation at room air 92. HEENT: PERRLA, EOMI.low position of soft palate, Mallapati 34. NECK: Supple. No JVD. LUNGS: Clear to percussion and to auscultation. Good air exchange. No wheezing or rhonchi. HEART: S1, S2 regular. ABDOMEN: Soft and nontender.[] EXTREMITIES: No clubbing or cyanosis. DROPHAMMER OPERATOR: Awake, alert, and oriented x3. No focal deficit. Impressions: 1. Obstructive sleep apnea-hypopnea syndrome. Patient demonstrated great compliance with treatment, benefiting from treatment. 2. Hypertension. 3. Hyperlipidemia. 4. Restless leg syndrome on treatment with ropinirole. 5. Seasonal ALLERGIES. 6. History of depression. 7. Status post carotid endarterectomy. Plan: 1. Continue using PAP equipment every night for the whole night. 2. To change air filter at least 1-2 times per month. 3. PAP unit should stay lower then position of the head. 4. Advised patient to remove all remaining water from humidifier canister daily and make it dry after each usage. Refill canister with fresh distilled water before each usage. 5. Sleep hygiene with regular time in bed for at least 8 hours. 6. Precautions related to driving. No driving if feel any sleepiness. 7. I will maintain prescription for PAP supplies including mask, tube, filters. 8. Follow up visit in 6 months or earlier if patient has any problems. 9. Watching weight. 10. I explained to the patient how to to adjust humidity and level of humidity was increased to 5. Thank you very much for allowing me to participate in the management of your patient. Rk White MD, PhD, FAASM. Diplomat of [employer], Sleep Medicine Board by [employer] Treatment Plant Mechanic of [facility] [place]
== END ==
LOC: SLEEP 14:47
PROVIDERS: ATTEND Internal Medicine
DX: G47.33 Obstructive sleep apnea (adult) (pediatric) (principal); I10 Essential (primary) hypertension; E78.5 Hyperlipidemia, unspecified; G25.81 Restless legs syndrome; J30.2 Other seasonal allergic rhinitis; F32.A Depression, unspecified; Z98.890 Other specified postprocedural states; Z79.01 Long term (current) use of anticoagulants; Z79.899 Other long term (current) drug therapy; Z99.89 Dependence on other enabling machines and devices; Z88.5 Allergy status to narcotic agent; Z88.6 Allergy status to analgesic agent; Z88.2 Allergy status to sulfonamides; Z91.018 Allergy to other foods; Z88.8 Allergy status to other drugs, medicaments and biological substances; Z88.1 Allergy status to other antibiotic agents; Z87.891 Personal history of nicotine dependence

== ENCOUNTER → 2021-10-02 | Outpatient (CLI) | payer MEDICARE, BC | END | disposition home or self-care (01) | LOC: RADCTMAIN 17:26 | PROVIDERS: ATTEND Internal Medicine Critical Care Medicine | DX: Z53.9 Procedure and treatment not carried out, unspecified reason (principal) ==

== ENCOUNTER → 2021-10-22 | Outpatient (CLI) | payer MEDICARE, BC ==
--- NOTE | 2021-10-22 14:20 | CT ---
EXAMINATION TYPE: CT chest wo con CT DLP: 153 mGycm, Automated exposure control for dose reduction was used. DATE OF EXAM: 10/22/2021 1:46 PM COMPARISON: THIS EXAM WAS READ DURING PACS DOWNTIME, NO PRIORS AVAILABLE. CLINICAL INDICATION:Female, 81 years old with history of J84.9 ILD; Interstitial lung disease TECHNIQUE: Multiple axial images were obtained through the chest. Sagittal and coronal reformats were created for review. Contrast used: none. Oral contrast used: none. FINDINGS: LUNGS/ PLEURA: Mild to moderate centrilobular emphysema changes most pronounced in the apices. There is scattered reticulation most pronounced peripherally and in the lower lungs. Early honeycombing sug gested in the lung bases. There is evidence of interstitial thickening without evidence of significan t groundglass opacities and No acute area of infiltrative or consolidative change. Previous left lowe r lobe pulmonary nodules not definitively visualized likely secondary to high-resolution CT technique which skips segments of the lung. AIRWAY: Patent with mild bronchiectasis most pronounced in the lung bases. HEART: The heart is mildly enlarged for size. There is moderate to severe coronary artery atheroscler osis and trace pericardial effusion. MEDIASTINUM: No gross evidence of adenopathy. VASCULATURE: No aortic aneurysm. Scattered atherosclerosis of the arterial vasculature. MUSCULOSKELETAL: No acute osseous abnormalities, mild multilevel disc degeneration changes are seen t hroughout the spine. SOFT TISSUES/LYMPH NODES: Unremarkable. LOWER NECK: No significant findings. UPPER ABDOMEN: No significant findings. IMPRESSION: 1. Moderate changes of pulmonary fibrosis are again demonstrated with architectural distortion, bron chiectasis and findings suggestive of early honeycombing. Attention on follow-up imaging in one year. 2. Moderate COPD. 3. Trace pericardial effusion. 4. Moderate to severe coronary artery atherosclerosis.
== END | disposition home or self-care (01) ==
LOC: RADCTMAIN 12:59
PROVIDERS: ATTEND Internal Medicine Critical Care Medicine
DX: I25.10 Atherosclerotic heart disease of native coronary artery without angina pectoris (principal); J44.9 Chronic obstructive pulmonary disease, unspecified; I31.3 Pericardial effusion (noninflammatory); J84.10 Pulmonary fibrosis, unspecified
CPT/HCPCS: 71250

== ENCOUNTER → 2022-02-07 | Outpatient (CLI) | payer MEDICARE, BC ==
--- NOTE | 2022-02-07 14:04 | P.PN ---
Subjective DATE: 02/07/2022 FOLLOW UP VISIT. Patient with obstructive sleep apnea hypopnea syndrome return to sleep center for follow-up visit. Information from previous visit have been reviewed. Patient is using PAP equipment every night for the whole night, getting PAP supplies in time. The patient does not have significant problems with the mask, PAP unit and humidification. Dierks sleepiness scale is 5, which is normal. I checked information from PAP unit. PAP unit pressure 11 cm H2O. Usage is 70 % for more then 4 hours, average 5.8 hours per night. Leak is 4 l/m, which is in acceptable range. Apnea Hypopnea Index is 2.5, which is normal. MEDICATIONS:1. Ropinirole 1 mg 2. Losartan 50 mg once a day 3. Lexapro 50 mg once a day 4. Metoprolol 25 mg once a day 5. Allopurinol 100 mg once a day 6. Eliquis 5 mg once a day 7. BuSpar 10 mg once a day 8. Nortriptyline 10 mg twice a day During physical exam: GENERAL: A pleasant patient without any distress. VITAL SIGNS: BP 145/86, HR 74, RR 16 , weight 151, temperature 98.2, oxygen saturation at room air 96 % . HEENT: PERRLA, EOMI.low position of soft palate, Mallapati 3-4 . NECK: Supple. No JVD. LUNGS: Clear to percussion and to auscultation. Good air exchange. No wheezing or rhonchi. HEART: S1, S2 regular. ABDOMEN: Soft and nontender.[] EXTREMITIES: No clubbing or cyanosis. BETTING AGENCY COUNTER CLERK: Awake, alert, and oriented x3. No focal deficit. Impressions: 1. Obstructive sleep apnea-hypopnea syndrome. Patient demonstrated great compliance with treatment, benefiting from treatment. 2. Hypertension. 3. History of depression. 4. Restless leg syndrome. 5. Hyperlipidemia. 6. Seasonal ALLERGY. 7. Status post carotid endarterectomy. Plan: 1. Continue using PAP equipment every night for the whole night. 2. To change air filter at least 1-2 times per month. 3. PAP unit should stay lower then position of the head. 4. Advised patient to remove all remaining water from humidifier canister daily and make it dry after each usage. Refill canister with fresh distilled water before each usage. 5. Sleep hygiene with regular time in bed for at least 8 hours. 6. Precautions related to driving. No driving if feel any sleepiness. 7. I will maintain prescription for PAP supplies including mask, tube, filters. 8. Follow up visit in 6 months or earlier if patient has any problems. Thank you very much for allowing me to participate in the management of your patient. Rk White MD, PhD, FAASM. Diplomat of [employer], Sleep Medicine Board by [employer] Top And Trim Worker of [facility] [place]
== END ==
LOC: SLEEP 13:28
PROVIDERS: ATTEND Internal Medicine
DX: G47.33 Obstructive sleep apnea (adult) (pediatric) (principal); Z99.89 Dependence on other enabling machines and devices; I10 Essential (primary) hypertension; E78.5 Hyperlipidemia, unspecified; Z86.59 Personal history of other mental and behavioral disorders; G25.81 Restless legs syndrome; J30.2 Other seasonal allergic rhinitis; Z98.62 Peripheral vascular angioplasty status; Z79.899 Other long term (current) drug therapy; Z88.6 Allergy status to analgesic agent; Z88.5 Allergy status to narcotic agent; Z88.2 Allergy status to sulfonamides; Z88.8 Allergy status to other drugs, medicaments and biological substances; Z88.1 Allergy status to other antibiotic agents; Z91.018 Allergy to other foods; Z87.891 Personal history of nicotine dependence
CPT/HCPCS: 99212

== ENCOUNTER 2022-06-20 10:41 | Emergency (ER) | payer MEDICARE, BC ==
[2022-06-20 10:49] VITALS: RESP 18
[2022-06-20] MEDS ORDERED: SODIUM CHLORIDE 0.9% 1,000 ML IV STA (11:03)
--- NOTE | 2022-06-20 11:59 | XR ---
EXAMINATION TYPE: XR chest 2V DATE OF EXAM: 06/20/2022 COMPARISON: 03/24/2021 TECHNIQUE: PA and lateral views submitted. HISTORY: Cough possible pneumonia FINDINGS: The lungs are clear and there is no pneumothorax, pleural effusion, or focal pneumonia. Heart size normal and no overt failure. Osseous structures demonstrate hypertrophic and degenerative changes of the spine. Coarsened interstitium similar to prior exam suggestive of pulmonary fibrosis. Diffuse ost eopenia with postsurgical change right shoulder and AC joint arthropathy bilaterally. Surgical clips right upper quadrant. IMPRESSION: 1. No acute process. Correlate for pulmonary fibrosis.
[2022-06-20 12:12] LABS: Basophils % (A) 0 %; Eosinophils # (A) 0.1 k/uL (0-0.7); Eosinophils % (A) 1 %; HGB 13.7 gm/dL (11.4-16.0); Lymphocytes # (A) 1.5 k/uL (1.0-4.8); Lymphocytes % (A) 23 %; MCH 28.3 pg (25.0-35.0); MCHC 32.7 g/dL (31.0-37.0); MCV 86.4 fL (80.0-100.0); Mean Platelet Volume 7.9; Monocytes # (A) 0.4 k/uL (0-1.0); Monocytes % (A) 6 %; Neutrophils # (A) 4.4 k/uL (1.3-7.7); Neutrophils % (A) 68 %; Platelet Count 157 k/uL (150-450); RBC 4.86 m/uL (3.80-5.40); RDW 14.2 % (11.5-15.5); WBC 6.4 k/uL (3.8-10.6)
[2022-06-20 12:16] LABS: ALT 29 U/L (4-34); AST 34 U/L (14-36); African American GFR (CKD) >90 (>60 ml/min/1.73 sqM); Albumin 3.5 g/dL (3.5-5.0); Alkaline Phosphatase 62 U/L (38-126); Anion Gap 7 mmol/L; Blood Urea Nitrogen 15 mg/dL (7-17); Calcium 9.4 mg/dL (8.4-10.2); Carbon Dioxide 27 mmol/L (22-30); Chloride 104 mmol/L (98-107); Glucose 99 mg/dL (74-99); Magnesium 1.7 mg/dL (1.6-2.3); Non-African American GFR(CKD) 84 (>60 ml/min/1.73 sqM); Sodium 138 mmol/L (137-145); Total Bilirubin 0.8 mg/dL (0.2-1.3); Total Protein 6.2 g/dL (6.3-8.2)
[2022-06-20 12:19] LABS: Partial Thromboplastin Time 25.1 sec (22.0-30.0); Prothrombin Time 10.8 sec (9.0-12.0)
--- NOTE | 2022-06-20 12:24 | ED ---
Weakness HPI - General Chief complaint: Weakness Stated complaint: Weakness Time Seen by Provider: 06/20/22 11:02 Source: patient, family, EMS, RN notes reviewed Mode of arrival: EMS Limitations: no limitations - History of Present Illness Initial comments: This is an 82-year-old female who presents to the emergency department for generalized weakness. States that she's had increasing anxiety over the last 1- 2 days. Today, she felt like she was dehydrated. When asked why, she states that because her lips were sticking together. Denies any nausea, vomiting, or changes in bowel/bladder habits. She is still eating and drinking well. When her son arrived, he states that he thinks that she is anxious because of being previously diagnosed with pneumonia and wants to make sure that is not still there. Denies any chest pain, shortness of breath, or coughing. Denies any fevers, chills, sore throat, cough, dyspnea, chest pain, palpitati ons, abdominal pain, nausea, vomiting, diarrhea, back pain, or headaches. MD Complaint: generalized weakness - Related Data Home Medications Medication Instructions Recorded Confirmed Atorvastatin [Lipitor] 10 mg PO HS 12/17/16 03/24/21 Escitalopram [Lexapro] 20 mg PO DAILY 12/17/16 03/24/21 Famotidine 40 mg PO DAILY 12/17/16 03/24/21 Nortriptyline [Pamelor] 20 mg PO HS 12/17/16 03/24/21 rOPINIRole HCL [Requip] 1 mg PO BID 12/17/16 03/24/21 Apixaban [Eliquis] 5 mg PO BID 11/26/17 03/24/21 Metoprolol Tartrate [Lopressor] 25 mg PO BID 11/26/17 03/24/21 Terazosin [Hytrin] 5 mg PO DAILY 04/16/18 03/24/21 allopurinoL [Zyloprim] 100 mg PO DAILY 02/01/20 03/24/21 Fexofenadine HCl [Anna Allergy] 180 mg PO HS 03/20/21 03/24/21 Montelukast [Singulair] 10 mg PO HS 03/20/21 03/24/21 Losartan [Cozaar] 50 mg PO DAILY 03/24/21 03/24/21 Previous Rx's Medication Instructions Recorded Acetaminophen Tab [Tylenol] 650 mg PO Q6HR PRN tab 03/26/21 Ascorbic Acid [Vitamin C] 1,000 mg PO DAILY 30 Days #30 03/26/21 tablet Cholecalciferol [Vitamin D3 (125 125 mcg PO DAILY 30 Days #30 tablet 03/26/21 Mcg = 5000 Iu)] Magnesium Oxide [Mag-Ox] 400 mg PO DAILY 30 Days #30 tablet 03/26/21 Zinc 50 mg PO DAILY 30 Days #30 tablet 03/26/21 Allergies Allergy/AdvReac Type Severity Reaction Status Date / Time acetaminophen [From [place]] Allergy Rash/Hives Verified 06/20/22 10:50 hydrocodone [From [place]] Allergy Rash/Hives Verified 06/20/22 10:50 Sulfa (Sulfonamide Allergy Rash/Hives Verified 06/20/22 10:50 Antibiotics) aripiprazole [From Abilify] AdvReac Hallucinati Verified 06/20/22 10:50 ons banana AdvReac Nausea & Verified 06/20/22 10:50 Vomiting & Diarrhea bupropion [From Wellbutrin] AdvReac Hallucinati Verified 06/20/22 10:50 ons codeine AdvReac Nausea & Verified 06/20/22 10:50 Vomiting morphine AdvReac Nausea & Verified 06/20/22 10:50 Vomiting nitrofurantoin AdvReac Unknown Verified 06/20/22 10:50 propoxyphene [From [place]] AdvReac Nausea & Verified 06/20/22 10:50 Vomiting Review of Systems ROS Statement: Those systems with pertinent positive or pertinent negative responses have been documented in the HPI. ROS Other: All systems not noted in ROS Statement are negative. Past Medical History Past Medical History: Atrial Fibrillation, Chest Pain / Angina, Heart Failure, CVA/TIA, GERD/Reflux, Hyperlipidemia, Hypertension, Osteoarthritis (OA), Sleep Apnea/CPAP/BIPAP Additional Past Medical History / Comment(s): Pulmonary fibrosis. Other hx: DDD, DJD, SPINAL STENOSIS, chronic bilateral hip pain worse on R side, 2018 septic arthritis R wrist, occluded carotid right artery, TIA x 2, RLS, seasonal allergies, KEVIN with CPAP USED, UTIs, diverticular dx, HAD GERD IN PAST NONE SINCE HIATAL HERNIA SX.,CARDIOMYOPATHY, murmur. 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 History of Any Multi-Drug Resistant Organisms: None Reported Past Surgical History: Adenoidectomy, Appendectomy, Bladder Surgery, Cholecystectomy, Hysterectomy, Joint Replacement, Orthopedic Surgery, Tonsillectomy Additional Past Surgical History / Comment(s): bilateral hip replacments, R rotator cuff repair, vaginal hysterectomy with anterior and posterior repairs in 2001, sinus sx twice, niko cataracts-lens implants, hiatal hernia sx, bladder suspension, L breast bx-benign. Carotid surgery. Colonoscopy. Past Anesthesia/Blood Transfusion Reactions: No Reported Reaction, Motion Sickness Past Psychological History: Anxiety, Bipolar, Depression Smoking Status: Former smoker Past Alcohol Use History: None Reported Past Drug Use History: None Reported - Past Family History Mother Family Medical History: Cancer Additional Family Medical History / Comment(s): colon cancer Father Family Medical History: Congestive Heart Failure (CHF) Sister(s) Family Medical History: Cancer Additional Family Medical History / Comment(s): Breast cancer Daughter(s) Family Medical History: Cancer Additional Family Medical History / Comment(s): Cancer of the appendix. General Exam Limitations: no limitations General appearance: alert, in no apparent distress Head exam: Present: atraumatic, normocephalic, normal inspection Respiratory exam: Present: normal lung sounds bilaterally. Absent: respiratory distress, wheezes, rales, rhonchi, stridor Cardiovascular Exam: Present: regular rate, normal rhythm, normal heart sounds. Absent: systolic murmur, diastolic murmur, rubs, gallop, clicks Neurological exam: Present: alert, oriented X3, CN II-XII intact Psychiatric exam: Present: normal affect, normal mood Skin exam: Present: warm, dry, intact, normal color. Absent: rash Course Vital Signs 06/20/22 06/20/22 10:43 14:45 Temperature 98.5 F 98.0 F Pulse Rate 75 78 Respiratory 18 18 Rate Blood Pressure 162/90 176/111 O2 Sat by Pulse 95 94 L Oximetry Medical Decision Making - Medical Decision Making This is an 82-year-old female who presents to the emergency department for weakness. Was pt. sent in by a medical professional or institution? @ -No Did you speak to anyone other than the patient for history? @ -Her son Did you review nursing and triage notes? @ -Yes, and I agree, it is accurate with regards to the patient's symptoms. Were old charts reviewed? @ -No Differential Diagnosis? @ -Differential Weakness: Hypoglycemia, shock, sepsis, hyponatremia, anemia, infection, HI, ETOH, adverse medicine reaction, overdose, stroke, this is not meant to be an all-inclusive list. EKG interpreted by me (3pts min.)? @ -Atrial fibrillation. Ventricular rate 77 beats per minute, QRS duration 87 ms, QTc 412 ms. X-rays interpreted by me (1pt min.)? @ -Chest x-ray obtained, my interpretation identifies no localized consolidations or infiltrates. What testing was considered but not performed? (CT, X-rays, U/S, labs)? Why? @ -None What meds were considered but not given? Why? @ -None Did you discuss the management of the patient with other professionals? @ -No Did you reconcile home meds? @ -No Was smoking cessation discussed for >3mins.? @ -No Was critical care preformed (if so, how long)? @ -No Were there social determinants of health that impacted care today? How? (Homelessness, low income, unemployed, alcoholism, drug addiction, transportat ion, low edu. Level, literacy, decrease access to med. care, senior care, rehab)? @ -No Was there de-escalation of care discussed even if they declined? (Discuss DNR or withdrawal of care, Hospice)? @ -No What co-morbidities impacted this encounter? (DM, HTN, Smoking, COPD, CAD, Cancer, CVA, Hep., AIDS, mental health diagnosis, sleep apnea, morbid obesity)? @ -A-fib, CHF, HTN, HLD Was patient admitted / discharged? @ -Discharged. Lab work obtained and found to be nonactionable. Urinalysis negative for signs of infection. Chest x-ray reveals no acute findings. Giana ient given IV fluids. She did feel more hydrated afterwards and was also drinking water. She requested Xanax for her anxiety, and was given 0.25 mg, which is what she takes at home as needed. She did feel much better after the Xanax and overall felt stable for discharge home. Advised she continue to remain well-hydrated and follow-up with her PCP for reevaluation of symptoms. Undiagnosed new problem with uncertain prognosis? @ -None Drug Therapy requiring intensive monitoring for toxicity (Heparin, Nitro, Insulin, Cardizem)? @ -None Were any procedures done? @ -None Diagnosis/symptom? @ -Weakness Acute, or Chronic, or Acute on Chronic? @ -Acute Uncomplicated (without systemic symptoms) or Complicated (systemic symptoms)? @ -Uncomplicated Side effects of treatment? @ -None Exacerbation, Progression, or Severe Exacerbation] @ -Not applicable Poses a threat to life or bodily function? @ -No Diagnosis/symptom? @ -Generalized anxiety disorder Acute, or Chronic, or Acute on Chronic? @ -Acute on chronic Uncomplicated (without systemic symptoms) or Complicated (systemic symptoms)? @ -Uncomplicated Side effects of treatment? @ -None Exacerbation, Progression, or Severe Exacerbation] @ -Exacerbation Poses a threat to life or bodily function? @ -No Return precautions reviewed in depth, the patient is instructed to return to the emergency department with any new, worsening, or concerning symptoms. Patient verbalized understanding. This case was discussed in detail with the attending ED physician, Dr. Parsons. Presentation, findings, and treatment plan discussed in detail as well. - Lab Data Result diagrams: 06/20/22 11:38 06/20/22 11:38 Lab Results 06/20/22 06/20/22 06/20/22 Range/Units 11:38 11:38 11:38 WBC 6.4 (3.8-10.6) k/uL RBC 4.86 (3.80-5.40) m/uL Hgb 13.7 (11.4-16.0) gm/dL Hct 42.0 (34.0-46.0) % MCV 86.4 (80.0-100.0) fL MCH 28.3 (25.0-35.0) pg MCHC 32.7 (31.0-37.0) g/dL RDW 14.2 (11.5-15.5) % Plt Count 157 (150-450) k/uL MPV 7.9 Neutrophils % 68 % Lymphocytes % 23 % Monocytes % 6 % Eosinophils % 1 % Basophils % 0 % Neutrophils # 4.4 (1.3-7.7) k/uL Lymphocytes # 1.5 (1.0-4.8) k/uL Monocytes # 0.4 (0-1.0) k/uL Eosinophils # 0.1 (0-0.7) k/uL Basophils # 0.0 (0-0.2) k/uL PT 10.8 (9.0-12.0) sec INR 1.0 (<1.2) APTT 25.1 (22.0-30.0) sec Sodium 138 (137-145) mmol/L Potassium 4.5 (3.5-5.1) mmol/L Chloride 104 (98-107) mmol/L Carbon Dioxide 27 (22-30) mmol/L Anion Gap 7 mmol/L BUN 15 (7-17) mg/dL Creatinine 0.63 (0.52-1.04) mg/dL Est GFR (CKD-EPI)AfAm >90 (>60 ml/min/1.73 sqM) Est GFR (CKD-EPI)NonAf 84 (>60 ml/min/1.73 sqM) Glucose 99 (74-99) mg/dL Plasma Lactic Acid Raphael (0.7-2.0) mmol/L Calcium 9.4 (8.4-10.2) mg/dL Magnesium 1.7 (1.6-2.3) mg/dL Total Bilirubin 0.8 (0.2-1.3) mg/dL AST 34 (14-36) U/L ALT 29 (4-34) U/L Alkaline Phosphatase 62 (38-126) U/L Troponin I (0.000-0.034) ng/mL Total Protein 6.2 L (6.3-8.2) g/dL Albumin 3.5 (3.5-5.0) g/dL Urine Color Urine Appearance (Clear) Urine pH (5.0-8.0) Ur Specific [place] (1.001-1.035) Urine Protein (Negative) Urine Glucose (UA) (Negative) Urine Ketones (Negative) Urine Blood (Negative) Urine Nitrite (Negative) Urine Bilirubin (Negative) Urine Urobilinogen (<2.0) mg/dL Ur Leukocyte Esterase (Negative) Urine RBC (0-5) /hpf Urine WBC (0-5) /hpf Ur Squamous Epith Cells (0-4) /hpf Urine Bacteria (None) /hpf 06/20/22 06/20/22 06/20/22 Range/Units 11:38 11:38 12:24 WBC (3.8-10.6) k/uL RBC (3.80-5.40) m/uL Hgb (11.4-16.0) gm/dL Hct (34.0-46.0) % MCV (80.0-100.0) fL MCH (25.0-35.0) pg MCHC (31.0-37.0) g/dL RDW (11.5-15.5) % Plt Count (150-450) k/uL MPV Neutrophils % % Lymphocytes % % Monocytes % % Eosinophils % % Basophils % % Neutrophils # (1.3-7.7) k/uL Lymphocytes # (1.0-4.8) k/uL Monocytes # (0-1.0) k/uL Eosinophils # (0-0.7) k/uL Basophils # (0-0.2) k/uL PT (9.0-12.0) sec INR (<1.2) APTT (22.0-30.0) sec Sodium (137-145) mmol/L Potassium (3.5-5.1) mmol/L Chloride (98-107) mmol/L Carbon Dioxide (22-30) mmol/L Anion Gap mmol/L BUN (7-17) mg/dL Creatinine (0.52-1.04) mg/dL Est GFR (CKD-EPI)AfAm (>60 ml/min/1.73 sqM) Est GFR (CKD-EPI)NonAf (>60 ml/min/1.73 sqM) Glucose (74-99) mg/dL Plasma Lactic Acid Raphael 1.3 (0.7-2.0) mmol/L Calcium (8.4-10.2) mg/dL Magnesium (1.6-2.3) mg/dL Total Bilirubin (0.2-1.3) mg/dL AST (14-36) U/L ALT (4-34) U/L Alkaline Phosphatase (38-126) U/L Troponin I 0.012 (0.000-0.034) ng/mL Total Protein (6.3-8.2) g/dL Albumin (3.5-5.0) g/dL Urine Color Colorless Urine Appearance Clear (Clear) Urine pH 6.5 (5.0-8.0) Ur Specific [place] 1.005 (1.001-1.035) Urine Protein Negative (Negative) Urine Glucose (UA) Negative (Negative) Urine Ketones Negative (Negative) Urine Blood Negative (Negative) Urine Nitrite Negative (Negative) Urine Bilirubin Negative (Negative) Urine Urobilinogen <2.0 (<2.0) mg/dL Ur Leukocyte Esterase Moderate H (Negative) Urine RBC 2 (0-5) /hpf Urine WBC 5 (0-5) /hpf Ur Squamous Epith Cells <1 (0-4) /hpf Urine Bacteria Rare H (None) /hpf - Radiology Data Radiology results: report reviewed, image reviewed Disposition Clinical Impression: Weakness, Anxiety Disposition: HOME SELF-CARE Instructions (If sedation given, give patient instructions): Weakness (ED) Additional Instructions: Return to the emergency department with any new, worsening, or concerning symptoms. Make sure that you remain well-hydrated. Follow up with your primary care provider in 1-2 days. Is patient prescribed a controlled substance at d/c from ED?: No Referrals: Lan Wlalace MD [Primary Care Provider] - 1-2 days
[2022-06-20 12:28] LABS: Potassium 4.5 mmol/L (3.5-5.1)
[2022-06-20 13:04] LABS: Appearance,Urine Clear (Clear); Bacteria,Urine Rare /hpf; Bilirubin,Urine Negative (Negative); Blood,Urine Negative (Negative); Color,Urine Colorless; Glucose,Urine (UA) Negative (Negative); Ketones,Urine Negative (Negative); Leukocyte Esterase,Urine Moderate (Negative); Nitrite,Urine Negative (Negative); PH, Urine 6.5 (5.0-8.0); Protein,Urine Negative (Negative); RBC,Urine 2 /hpf (0-5); Specific Gravity,Urine 1.005 (1.001-1.035); Squamous Epithelial Cell,Urine <1 /hpf (0-4); Urobilinogen,Urine <2.0 mg/dL (<2.0); WBC,Urine 5 /hpf (0-5)
[2022-06-20] MEDS ORDERED: ALPRAZolam 0.25 MG TAB PO STA (13:13)
[2022-06-20 14:47] VITALS: PULSE 78
[2022-06-20 14:48] VITALS: BP 176/111; TEMP 98
== END 2022-06-20 14:53 | disposition home or self-care (01) ==
LOC: EC 10:41
DX: R53.1 Weakness (principal); F41.9 Anxiety disorder, unspecified; I48.91 Unspecified atrial fibrillation; K21.9 Gastro-esophageal reflux disease without esophagitis; E78.5 Hyperlipidemia, unspecified; I11.0 Hypertensive heart disease with heart failure; I50.9 Heart failure, unspecified; M19.90 Unspecified osteoarthritis, unspecified site; F31.9 Bipolar disorder, unspecified; Z87.891 Personal history of nicotine dependence; Z88.5 Allergy status to narcotic agent; Z88.6 Allergy status to analgesic agent; Z91.018 Allergy to other foods; Z88.2 Allergy status to sulfonamides; Z88.8 Allergy status to other drugs, medicaments and biological substances; Z79.01 Long term (current) use of anticoagulants; Z79.899 Other long term (current) drug therapy
CPT/HCPCS: 36415; 71046; 80053; 81001; 83605; 83735; 84484; 85025; 85610; 85730; 93005; 96360; 99285

== ENCOUNTER → 2022-09-05 | Outpatient (CLI) | payer MEDICARE, BC ==
--- NOTE | 2022-09-05 14:22 | P.PN ---
Subjective DATE: 09/05/2022 FOLLOW UP VISIT. Patient with obstructive sleep apnea hypopnea syndrome return to sleep center for follow-up visit. Information from previous visit have been reviewed. Patient is using PAP equipment every night for the whole night, getting PAP supplies in time. The patient does not have significant problems with the mask, PAP unit and humidification. [place] sleepiness scale is 3, which is normal. I checked information from PAP unit. PAP unit pressure 11 cm H2O. Usage is 80 % for more then 4 hours, average 6 hours per night. Leak is perfect 1 l/m. Apnea Hypopnea Index is 0.7, which is normal. MEDICATIONS:1. Famotidine 40 mg once a day 2. Eliquis 5 mg once a day 3. Allopurinol 100 mg once a day 4. Losartan 50 mg once a day 5. Metoprolol 25 mg once a day 6. Nortriptyline 10 mg once a day 7. Escitalopram 20 mg once a day During physical exam: GENERAL: A pleasant patient without any distress. VITAL SIGNS: BP 151/84, HR 73, RR 20 , weight 143.6, temperature 98.2, oxygen saturation at room air 96 % . HEENT: PERRLA, EOMI.low position of soft palate, Mallapati 34 . NECK: Supple. No JVD. LUNGS: Clear to percussion and to auscultation. Good air exchange. No wheezing or rhonchi. HEART: S1, S2 regular. ABDOMEN: Soft and nontender.[] EXTREMITIES: No clubbing or cyanosis. CABLE WIRER: Awake, alert, and oriented x3. No focal deficit. Impressions: 1. Obstructive sleep apnea-hypopnea syndrome. Patient demonstrated great compliance with treatment, benefiting from treatment. 2. History of depression. 3. Restless leg syndrome. 4. Hypertension. 5. Hyperlipidemia. 6. Seasonal ALLERGY. 7. Status post carotid endarterectomy. I teach patient how to adjust level of humidity and temperature in the tube. Humidity was adjusted up to the level of 5. Plan: 1. Continue using PAP equipment every night for the whole night. 2. To change air filter at least 1-2 times per month. 3. PAP unit should stay lower then position of the head. 4. Advised patient to remove all remaining water from humidifier canister daily and make it dry after each usage. Refill canister with fresh distilled water before each usage. 5. Sleep hygiene with regular time in bed for at least 8 hours. 6. Precautions related to driving. No driving if feel any sleepiness. 7. I will maintain prescription for PAP supplies including mask, tube, filters. 8. Follow up visit in 6 months or earlier if patient has any problems. 9. Watching weight. Thank you very much for allowing me to participate in the management of your patient. Rk White MD, PhD, FAASM. Diplomat of [place] [employer], Sleep Medicine Board by [place] [employer] [facility]
== END ==
LOC: 3 N SLEEP 13:23
PROVIDERS: ATTEND Internal Medicine
DX: G47.33 Obstructive sleep apnea (adult) (pediatric) (principal); I10 Essential (primary) hypertension; E78.5 Hyperlipidemia, unspecified; G25.81 Restless legs syndrome; F32.A Depression, unspecified; J30.2 Other seasonal allergic rhinitis; Z98.890 Other specified postprocedural states; Z99.89 Dependence on other enabling machines and devices; Z88.5 Allergy status to narcotic agent; Z88.2 Allergy status to sulfonamides; Z88.8 Allergy status to other drugs, medicaments and biological substances; Z91.018 Allergy to other foods; Z88.1 Allergy status to other antibiotic agents; Z79.899 Other long term (current) drug therapy; Z87.891 Personal history of nicotine dependence
CPT/HCPCS: 99212

== ENCOUNTER 2022-10-31 12:20 | Inpatient (IN) | payer MEDICARE, BC ==
[2022-10-31] MEDS ORDERED: fentaNYL (PF) 50 MCG/ML 2 ML AMP IVP STA (13:17)
[2022-10-31] MEDS ORDERED: ONDANSETRON 4 MG/2 ML VIAL IVP STA (13:28)
[2022-10-31 13:36] LABS: INR 1.1 (<1.2)
[2022-10-31 13:37] LABS: Partial Thromboplastin Time 25.9 sec (22.0-30.0); Prothrombin Time 11.1 sec (9.0-12.0)
[2022-10-31 13:44] LABS: ALT 26 U/L (4-34); AST 25 U/L (14-36); African American GFR (CKD) 88 (>60 ml/min/1.73 sqM); Albumin 3.1 g/dL (3.5-5.0); Alkaline Phosphatase 61 U/L (38-126); Anion Gap 5 mmol/L; Blood Urea Nitrogen 11 mg/dL (7-17); Calcium 9.9 mg/dL (8.4-10.2); Carbon Dioxide 28 mmol/L (22-30); Chloride 102 mmol/L (98-107); Glucose 115 mg/dL (74-99); Lipase 89 U/L (23-300); Magnesium 1.5 mg/dL (1.6-2.3); Non-African American GFR(CKD) 76 (>60 ml/min/1.73 sqM); Potassium 4.2 mmol/L (3.5-5.1); Sodium 135 mmol/L (137-145); Total Bilirubin 0.8 mg/dL (0.2-1.3); Total Protein 5.8 g/dL (6.3-8.2)
[2022-10-31 13:54] LABS: NT-Pro-B-Type Natriuretic Pept 312 pg/mL
--- NOTE | 2022-10-31 14:01 | XR ---
EXAMINATION TYPE: XR chest 2V DATE OF EXAM: 10/31/2022 COMPARISON: NONE HISTORY: Abdominal pain. TECHNIQUE: Frontal and lateral views of the chest are obtained. IMPRESSION: There is scattered interstitial changes seen throughout the lungs bilaterally which are likely chroni c with some scattered bronchial wall thickening also noted that may relate to inflammatory airway godwin nges. There is no focal area of consolidation. The cardiac silhouette is mildly enlarged and the pulmonary vessels are within normal limits.
[2022-10-31 14:02] LABS: Basophils % (A) 0 %; Eosinophils # (A) 0.3 k/uL (0-0.7); Eosinophils % (A) 3 %; HCT 43.8 % (34.0-46.0); HGB 14.4 gm/dL (11.4-16.0); Lymphocytes # (A) 1.5 k/uL (1.0-4.8); Lymphocytes % (A) 15 %; MCH 28.7 pg (25.0-35.0); Mean Platelet Volume 7.4; Monocytes # (A) 0.7 k/uL (0-1.0); Monocytes % (A) 6 %; Neutrophils # (A) 7.8 k/uL (1.3-7.7); Neutrophils % (A) 75 %; Platelet Count 167 k/uL (150-450); RBC 5.04 m/uL (3.80-5.40); RDW 14.8 % (11.5-15.5); WBC 10.5 k/uL (3.8-10.6)
--- NOTE | 2022-10-31 14:33 | CT ---
EXAMINATION TYPE: CT abdomen pelvis w con DATE OF EXAM: 10/31/2022 COMPARISON: 10/17/2009 HISTORY: Lower abdominal pain CT DLP: 751.9 mGycm Automated exposure control for dose reduction was used. CONTRAST: CT scan of the abdomen pelvis is performed with IV Contrast, patient injected with 100 mL of Isovue 3 00. FINDINGS- LUNG BASES- the heart is enlarged. Calcified aortic valve and coronary artery calcium collection not ed. Small pericardial effusion. LIVER/GB- findings suggestive of pulmonary fibrosis in the lung bases with basilar bronchiectasis a nd bilateral subsegmental atelectasis. Areas cholecystectomy changes with mild intrahepatic and extra hepatic biliary ductal dilation. PANCREAS- No gross abnormality is seen. SPLEEN- there is a small amount of fluid adjacent to the spleen. There multiple hypodensities within spleen most likely related to small splenic cyst.. ADRENALS- No gross abnormality is seen. KIDNEYS/BLADDER-small hypodensity lower pole right kidney cyst. No hydronephrosis. BOWEL- moderate-sized hiatal hernia with surgical clips. Pelvic loops limited by artifact from hip p rostheses. A few prominent small bowel loops in the left abdomen. There is mesenteric edema centrally extending into the pelvis. LYMPH NODES- No greater than 1cm abdominal or pelvic lymph nodes are appreciated. OSSEOUS STRUCTURES- diffuse osteopenia with multilevel degenerative disc disease and grade 1 anterol isthesis L4 on L5. Multilevel facet arthropathy OTHER- small amount of ascites. There is artifact from bilateral hip prostheses which limits assessm ent of the pelvis. There is a 3.2 cm infrarenal abdominal aortic aneurysm. IMPRESSION- 1. Dilated bowel loops in the left abdomen with diffuse mesenteric edema. There is a suggestion of a caliber change within the bowel with a decompressed segment seen on axial image 52. Closed loop obstr uction in the differential diagnosis. Recommend correlation with serum lactic acid to assess for isch emic bowel. Report discussed with the emergency room physician 2. Small amount of ascites 3. Postcholecystectomy with intrahepatic and extra hepatic bile ductal dilation. 4. Note is made that the evaluation of the pelvic loops is limited due to severe artifact from bilate ral hip prostheses. Changes of diverticulosis with no CT evidence of diverticulitis. 5. 3.3 cm infrarenal abdominal aortic aneurysm.
[2022-10-31] MEDS ORDERED: ONDANSETRON 4 MG/2 ML VIAL IVP PRN (16:11)
[2022-10-31] MEDS ORDERED: NALOXONE 0.4 MG/ML 1 ML VIAL IV PRN ×2 (16:11→18:26)
--- NOTE | 2022-10-31 16:19 | ED ---
General Adult HPI - General Chief complaint: Abdominal Pain Stated complaint: Abd Pain Time Seen by Provider: 10/31/22 12:22 Source: patient Mode of arrival: ambulatory Limitations: no limitations - History of Present Illness Initial comments: This is a 82-year-old female with a past medical history including hypertension presents emergency department for lower abdominal pain. The patient reported to the triage nurse that she also had nausea and vomiting. When I evaluated her, she stated that she had abdominal pain across her lower abdomen that is been present over the last several days. The patient did state that it was worse today. The patient did report mild nausea without vomiting likely. The patient denied any fevers and chills. The patient was otherwise resting in bed comfortably. - Related Data Home Medications Medication Instructions Recorded Confirmed Atorvastatin [Lipitor] 10 mg PO HS 12/17/16 03/24/21 Escitalopram [Lexapro] 20 mg PO DAILY 12/17/16 03/24/21 Famotidine 40 mg PO DAILY 12/17/16 03/24/21 Nortriptyline [Pamelor] 20 mg PO HS 12/17/16 03/24/21 rOPINIRole HCL [Requip] 1 mg PO BID 12/17/16 03/24/21 Apixaban [Eliquis] 5 mg PO BID 11/26/17 03/24/21 Metoprolol Tartrate [Lopressor] 25 mg PO BID 11/26/17 03/24/21 Terazosin [Hytrin] 5 mg PO DAILY 04/16/18 03/24/21 allopurinoL [Zyloprim] 100 mg PO DAILY 02/01/20 03/24/21 Losartan [Cozaar] 50 mg PO DAILY 03/24/21 03/24/21 ALPRAZolam [Xanax] 0.25 mg PO DAILY PRN 10/31/22 10/31/22 Azithromycin [Zithromax Z Pack] See Taper PO DIRECTED 10/31/22 10/31/22 Benzonatate [Tessalon Perles] 100 mg PO TID PRN 10/31/22 10/31/22 Cholestyramine (with Sugar) 4 gm PO DAILY 10/31/22 10/31/22 [Cholestyramine Packet] L.acidoph,Paracasei, B.lactis 1 cap PO DAILY 10/31/22 10/31/22 [Probiotic] Previous Rx's Medication Instructions Recorded Acetaminophen Tab [Tylenol] 650 mg PO Q6HR PRN tab 03/26/21 Cholecalciferol [Vitamin D3 (125 125 mcg PO DAILY 30 Days #30 tablet 03/26/21 Mcg = 5000 Iu)] Allergies Allergy/AdvReac Type Severity Reaction Status Date / Time banana Allergy Nausea & Verified 10/31/22 15:51 Vomiting & Diarrhea codeine Allergy Nausea & Verified 10/31/22 15:51 Vomiting, hives/rash hydrocodone [From [place]] Allergy Rash/Hives Verified 10/31/22 15:51 morphine Allergy Nausea & Verified 10/31/22 15:51 Vomiting, rash/hives nitrofurantoin Allergy Unknown Verified 10/31/22 15:51 propoxyphene [From [place]] Allergy Nausea & Verified 10/31/22 15:51 Vomiting, rash/hives Sulfa (Sulfonamide Allergy Rash/Hives Verified 10/31/22 15:51 Antibiotics) aripiprazole [From Abilify] AdvReac severe, Verified 10/31/22 15:51 increased anxiety. bupropion [From Wellbutrin] AdvReac severe, Verified 10/31/22 15:51 increased anxiety. Review of Systems ROS Statement: Those systems with pertinent positive or pertinent negative responses have been documented in the HPI. ROS Other: All systems not noted in ROS Statement are negative. Past Medical History Past Medical History: Atrial Fibrillation, Chest Pain / Angina, Heart Failure, CVA/TIA, GERD/Reflux, Hyperlipidemia, Hypertension, Osteoarthritis (OA), Sleep Apnea/CPAP/BIPAP Additional Past Medical History / Comment(s): Pulmonary fibrosis. Other hx: DDD, DJD, SPINAL STENOSIS, chronic bilateral hip pain worse on R side, 2018 s eptic arthritis R wrist, occluded carotid right artery, TIA x 2, RLS, seasonal allergies, KEVIN with CPAP USED, UTIs, diverticular dx, HAD GERD IN PAST NONE SINCE HIATAL HERNIA SX.,CARDIOMYOPATHY, murmur. 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 History of Any Multi-Drug Resistant Organisms: None Reported Past Surgical History: Adenoidectomy, Appendectomy, Bladder Surgery, Cholecystectomy, Hysterectomy, Joint Replacement, Orthopedic Surgery, T onsillectomy Additional Past Surgical History / Comment(s): bilateral hip replacments, R rotator cuff repair, vaginal hysterectomy with anterior and posterior repairs in 2001, sinus sx twice, niko cataracts-lens implants, hiatal hernia sx, bladder suspension, L breast bx-benign. Carotid surgery. Colonoscopy. Past Anesthesia/Blood Transfusion Reactions: No Reported Reaction, Motion Sickness Past Psychological History: Anxiety, Bipolar, Depression Smoking Status: Former smoker Past Alcohol Use History: None Reported Past Drug Use History: None Reported - Past Family History Mother Family Medical History: Cancer Additional Family Medical History / Comment(s): colon cancer Father Family Medical History: Congestive Heart Failure (CHF) Sister(s) Family Medical History: Cancer Additional Family Medical History / Comment(s): Breast cancer Daughter(s) Family Medical History: Cancer Additional Family Medical History / Comment(s): Cancer of the appendix. General Exam Limitations: no limitations General appearance: alert, in no apparent distress Head exam: Present: atraumatic, normocephalic, normal inspection Eye exam: Present: normal appearance, PERRL Pupils: Present: normal accommodation ENT exam: Present: normal exam, normal oropharynx, mucous membranes moist Neck exam: Present: normal inspection, full ROM Respiratory exam: Present: normal lung sounds bilaterally Cardiovascular Exam: Present: regular rate, normal rhythm, normal heart sounds GI/Abdominal exam: Present: soft, tenderness (TTP ove the LLQ and RLQ), normal bowel sounds Extremities exam: Present: normal inspection, full ROM Back exam: Present: normal inspection, full ROM Neurological exam: Present: alert, oriented X3, CN II-XII intact Psychiatric exam: Present: normal affect, normal mood Skin exam: Present: warm, dry Course Vital Signs 10/31/22 10/31/22 12:22 13:20 Temperature 98.0 F Pulse Rate 94 81 Respiratory 18 18 Rate Blood Pressure 130/92 156/108 O2 Sat by Pulse 95 97 Oximetry EKG Findings - EKG Comments: EKG Findings:: An EKG was obtained and was interpreted by myself showing a rate of 84, CA interval 135, QS duration of 86 and QTC of 414. This EKG showed a normal sinus rhythm with no ST segment elevation or depression noted. Medical Decision Making - Medical Decision Making Was pt. sent in by a medical professional or institution (, PA, CAUSTIC PUMP OPERATOR, urgent care, hospital, or jail...) When possible be specific @ -No Did you speak to anyone other than the patient for history (EMS, parent, family, police, friend...)? What history was obtained from this source @ -No Did you review nursing and triage notes (agree or disagree)? Why? @ -I reviewed and agree with nursing and triage notes Were old charts reviewed (outside hosp., previous admission, EMS record, old EKG, old radiological studies, urgent care reports/EKG's, jail records)? Report findings @ -No old charts were reviewed Differential Diagnosis (chest pain, altered mental status, abdominal pain women, abdominal pain men, vaginal bleeding, weakness, fever, dyspnea, syncope, headache, dizziness, GI bleed, back pain, seizure, CVA, palpatations, mental health)? @ -Small bowel obstruction, diverticulitis, gastroenteritis EKG interpreted by me (3pts min.). @ -As above X-rays interpreted by me (1pt min.). @ -Chest x-ray was obtained and was interpreted by myself showing no acute process. CT interpreted by me (1pt min.). @ -CT abdomen and pelvis with IV contrast was obtained and was interpreted by myself showing dilated bowel loops in the left abdomen with diffuse mesenteric edema. There is suggestion of a caliber change within the bowel with a decompressed segment. A closed loop obstruction is in the differential. Radiology recommended serum lactic acid to assess for ischemic bowel. The lactic acid was negative. There was a small amount of ascites. There was post cholecystectomy with intrahepatic and extrahepatic bile duct dilation. There is in no that the evaluation of the pelvic loops is limited due to severe artifact from bilateral hip prosthesis. There is a 3.3 cm infrarenal abdominal aortic aneurysm. U/S interpreted by me (1pt. min.). @ -None done What testing was considered but not performed or refused? (CT, X-rays, U/S, labs)? Why? @ -None What meds were considered but not given or refused? Why? @ -None Did you discuss the management of the patient with other professionals (professionals i.e. , PA, CAUSTIC PUMP OPERATOR, lab, RT, psych nurse, social sciences department chair, immigration lawyer, teacher, weapons officer, showcase trimmer)? Give summary @ -Yes, Dr. Michel was contacted regarding the patient and accepted the patient for planned operative management. Was smoking cessation discussed for >3mins.? @ -No Was critical care preformed (if so, how long)? @ -No Were there social determinants of health that impacted care today? How? (Homelessness, low income, unemployed, alcoholism, drug addiction, transportation, low edu. Level, literacy, decrease access to med. care, residential, rehab)? @ -No Was there de-escalation of care discussed even if they declined (Discuss DNR or withdrawal of care, Hospice)? DNR status @ -No What co-morbidities impacted this encounter? (DM, HTN, Smoking, COPD, CAD, Cancer, CVA, ARF, Chemo, Hep., AIDS, mental health diagnosis, sleep apnea, morbid obesity)? @ -Hypertension Was patient admitted / discharged? Hospital course, mention meds given and route, prescriptions, significant lab abnormalities, going to OR and other pertinent info. @ -The patient was seen and evaluated emergency department. Physical exam, the patient was resting in bed without any acute distress. The patient did state that she had continued abdominal pain and was given fentanyl for this pain. The patient did have an episode of vomiting after this and was given Zofran. The patient was otherwise resting in bed comfortably and vital signs remained stable. Workup with laboratory testing was within normal limits however computed tomography scan showed possible closed loop obstruction of small bowel. Dr. Michel was environmental auditor and was told of this result and he did agree to admit the patient for likely operative management. He recommended NG tube placement. This was ordered in the emergency department. The patient was admitted under Dr. Michel for further workup and evaluation as well as operative management. Undiagnosed new problem with uncertain prognosis? @ -No Drug Therapy requiring intensive monitoring for toxicity (Heparin, Nitro, Insulin, Cardizem)? @ -No Were any procedures done? @ -No Diagnosis/symptom? @ -Closed loop small bowel obstruction Acute, or Chronic, or Acute on Chronic? @ -Acute Uncomplicated (without systemic symptoms) or Complicated (systemic symptoms)? @ -Complicated Side effects of treatment? @ -No Exacerbation, Progression, or Severe Exacerbation? @ -No Poses a threat to life or bodily function? How? (Chest pain, [place], ID, pneumonia, PE, COPD, DKA, ARF, appy, cholecystitis, CVA, Diverticulitis, Homicidal, Suicidal, threat to staff... and all critical care pts) @ -Yes, continued closed loop obstruction could lead to permanent damage, sepsis, endorgan damage and possible . - Lab Data Result diagrams: 10/31/22 13:22 10/31/22 13:22 Lab Results 10/31/22 10/31/22 10/31/22 Range/Units 13:22 13:22 13:22 WBC 10.5 (3.8-10.6) k/uL RBC 5.04 (3.80-5.40) m/uL Hgb 14.4 (11.4-16.0) gm/dL Hct 43.8 (34.0-46.0) % MCV 87.0 (80.0-100.0) fL MCH 28.7 (25.0-35.0) pg MCHC 33.0 (31.0-37.0) g/dL RDW 14.8 (11.5-15.5) % Plt Count 167 (150-450) k/uL MPV 7.4 Neutrophils % 75 % Lymphocytes % 15 % Monocytes % 6 % Eosinophils % 3 % Basophils % 0 % Neutrophils # 7.8 H (1.3-7.7) k/uL Lymphocytes # 1.5 (1.0-4.8) k/uL Monocytes # 0.7 (0-1.0) k/uL Eosinophils # 0.3 (0-0.7) k/uL Basophils # 0.0 (0-0.2) k/uL PT 11.1 (9.0-12.0) sec INR 1.1 (<1.2) APTT 25.9 (22.0-30.0) sec Sodium 135 L (137-145) mmol/L Potassium 4.2 (3.5-5.1) mmol/L Chloride 102 (98-107) mmol/L Carbon Dioxide 28 (22-30) mmol/L Anion Gap 5 mmol/L BUN 11 (7-17) mg/dL Creatinine 0.74 (0.52-1.04) mg/dL Est GFR (CKD-EPI)AfAm 88 (>60 ml/min/1.73 sqM) Est GFR (CKD-EPI)NonAf 76 (>60 ml/min/1.73 sqM) Glucose 115 H (74-99) mg/dL Plasma Lactic Acid Raphael (0.7-2.0) mmol/L Calcium 9.9 (8.4-10.2) mg/dL Magnesium 1.5 L (1.6-2.3) mg/dL Total Bilirubin 0.8 (0.2-1.3) mg/dL AST 25 (14-36) U/L ALT 26 (4-34) U/L Alkaline Phosphatase 61 (38-126) U/L Troponin I (0.000-0.034) ng/mL NT-Pro-B Natriuret Pep 312 pg/mL Total Protein 5.8 L (6.3-8.2) g/dL Albumin 3.1 L (3.5-5.0) g/dL Lipase 89 (23-300) U/L Influenza Type A (PCR) (Not Detectd) Influenza Type B (PCR) (Not Detectd) RSV (PCR) (Not Detectd) SARS-CoV-2 (PCR) (Not Detectd) 10/31/22 10/31/22 10/31/22 Range/Units 13:22 13:22 14:42 WBC (3.8-10.6) k/uL RBC (3.80-5.40) m/uL Hgb (11.4-16.0) gm/dL Hct (34.0-46.0) % MCV (80.0-100.0) fL MCH (25.0-35.0) pg MCHC (31.0-37.0) g/dL RDW (11.5-15.5) % Plt Count (150-450) k/uL MPV Neutrophils % % Lymphocytes % % Monocytes % % Eosinophils % % Basophils % % Neutrophils # (1.3-7.7) k/uL Lymphocytes # (1.0-4.8) k/uL Monocytes # (0-1.0) k/uL Eosinophils # (0-0.7) k/uL Basophils # (0-0.2) k/uL PT (9.0-12.0) sec INR (<1.2) APTT (22.0-30.0) sec Sodium (137-145) mmol/L Potassium (3.5-5.1) mmol/L Chloride (98-107) mmol/L Carbon Dioxide (22-30) mmol/L Anion Gap mmol/L BUN (7-17) mg/dL Creatinine (0.52-1.04) mg/dL Est GFR (CKD-EPI)AfAm (>60 ml/min/1.73 sqM) Est GFR (CKD-EPI)NonAf (>60 ml/min/1.73 sqM) Glucose (74-99) mg/dL Plasma Lactic Acid Raphael 1.2 (0.7-2.0) mmol/L Calcium (8.4-10.2) mg/dL Magnesium (1.6-2.3) mg/dL Total Bilirubin (0.2-1.3) mg/dL AST (14-36) U/L ALT (4-34) U/L Alkaline Phosphatase (38-126) U/L Troponin I <0.012 (0.000-0.034) ng/mL NT-Pro-B Natriuret Pep pg/mL Total Protein (6.3-8.2) g/dL Albumin (3.5-5.0) g/dL Lipase (23-300) U/L Influenza Type A (PCR) Not Detected (Not Detectd) Influenza Type B (PCR) Not Detected (Not Detectd) RSV (PCR) Not Detected (Not Detectd) SARS-CoV-2 (PCR) Not Detected (Not Detectd) Disposition Clinical Impression: Complete small bowel obstruction Disposition: ADMITTED IP TO THIS [facility] Condition: Stable Is patient prescribed a controlled substance at d/c from ED?: No Referrals: Lan Wallace MD [Primary Care Provider] - 1-2 days Time of Disposition: 15:00 Decision to Admit Reason: Admit from EC Decision Date: 10/31/22 Decision Time: 15:00
[2022-10-31] MEDS: SODIUM CHLORIDE 0.9% 1,000 ML IV SCH (16:39)
[2022-10-31] MEDS ORDERED: SUCCINYLCHOLINE CHLORIDE 200 MG/10 ML VIAL IV ONE (17:38)
[2022-10-31] MEDS ORDERED: HEPARIN SODIUM,PORCINE 5,000 UNIT/ML 1 ML VIAL ONE (17:38)
[2022-10-31] MEDS ORDERED: PROPOFOL 10 MG/ML 20 ML VIAL IV ONE (17:38)
[2022-10-31] MEDS ORDERED: LIDOCAINE 2% INJ 20 MG/ML (2 ML VIAL) ONE (17:38)
[2022-10-31] MEDS ORDERED: NEOSTIGMINE 1 MG/ML 10 ML VIAL ONE (17:38)
[2022-10-31] MEDS ORDERED: GLYCOPYRROLATE 0.2 MG/ML 2 ML VIAL ONE (17:38)
[2022-10-31] MEDS ORDERED: fentaNYL (PF) 50 MCG/ML 2 ML AMP ONE (17:38)
[2022-10-31] MEDS ORDERED: ROCURONIUM 10 MG/ML (5 ML VIAL) IV ONE (17:38)
[2022-10-31] MEDS ORDERED: SODIUM CHLORIDE 0.9% 1,000 ML IV ONE (17:43)
--- NOTE | 2022-10-31 17:44 | P.GSHP ---
History of Present Illness H&P Date: 10/31/22 Chief Complaint: Nausea, vomiting, abdominal pain This is a 8-year-old female who is 24 history of abdominal pain nausea and vomiting. Patient states she felt bloating and had significant abdominal pain lower quadrants. A shoulder had some nausea and vomiting. Patient underwent computed tomography scan impression. She is found have suggested of a closed loop obstruction with mesenteric edema. Patient is a previous history of appendicitis. Past Medical History Past Medical History: Atrial Fibrillation, Chest Pain / Angina, Heart Failure, CVA/TIA, GERD/Reflux, Hyperlipidemia, Hypertension, Osteoarthritis (OA), Sleep Apnea/CPAP/BIPAP Additional Past Medical History / Comment(s): Pulmonary fibrosis. Other hx: DDD, DJD, SPINAL STENOSIS, chronic bilateral hip pain worse on R side, 2018 septic arthritis R wrist, occluded carotid right artery, TIA x 2, RLS, seasonal allergies, KEVIN with CPAP USED, UTIs, diverticular dx, HAD GERD IN PAST NONE SINCE HIATAL HERNIA SX.,CARDIOMYOPATHY, murmur. 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 History of Any Multi-Drug Resistant Organisms: None Reported Past Surgical History: Adenoidectomy, Appendectomy, Bladder Surgery, Cholecystectomy, Hysterectomy, Joint Replacement, Orthopedic Surgery, Tonsillectomy Additional Past Surgical History / Comment(s): bilateral hip replacments, R rotator cuff repair, vaginal hysterectomy with anterior and posterior repairs in 2001, sinus sx twice, niko cataracts-lens implants, hiatal hernia sx, bladder suspension, L breast bx-benign. Carotid surgery. Colonoscopy. Past Anesthesia/Blood Transfusion Reactions: No Reported Reaction, Motion Sickness Past Psychological History: Anxiety, Bipolar, Depression Smoking Status: Former smoker Past Alcohol Use History: None Reported Past Drug Use History: None Reported - Past Family History Mother Family Medical History: Cancer Additional Family Medical History / Comment(s): colon cancer Father Family Medical History: Congestive Heart Failure (CHF) Sister(s) Family Medical History: Cancer Additional Family Medical History / Comment(s): Breast cancer Daughter(s) Family Medical History: Cancer Additional Family Medical History / Comment(s): Cancer of the appendix. Medications and Allergies Home Medications Medication Instructions Recorded Confirmed Type Atorvastatin [Lipitor] 10 mg PO HS 12/17/16 10/31/22 History Escitalopram [Lexapro] 20 mg PO DAILY 12/17/16 10/31/22 History Famotidine 40 mg PO DAILY 12/17/16 10/31/22 History Nortriptyline [Pamelor] 20 mg PO HS 12/17/16 10/31/22 History rOPINIRole HCL [Requip] 1 mg PO BID 12/17/16 10/31/22 History Apixaban [Eliquis] 5 mg PO BID 11/26/17 10/31/22 History Metoprolol Tartrate [Lopressor] 25 mg PO BID 11/26/17 10/31/22 History Terazosin [Hytrin] 5 mg PO HS 04/16/18 10/31/22 History allopurinoL [Zyloprim] 100 mg PO DAILY 02/01/20 10/31/22 History Losartan [Cozaar] 50 mg PO DAILY 03/24/21 10/31/22 History Acetaminophen Tab [Tylenol] 650 mg PO Q6HR PRN tab 03/26/21 10/31/22 Rx Cholecalciferol [Vitamin D3 (125 125 mcg PO DAILY 30 Days #30 tablet 03/26/21 10/31/22 Rx Mcg = 5000 Iu)] ALPRAZolam [Xanax] 0.25 mg PO DAILY PRN 10/31/22 10/31/22 History Azithromycin [Zithromax Z Pack] See Taper PO DIRECTED 10/31/22 10/31/22 History Benzonatate [Tessalon Perles] 100 mg PO TID PRN 10/31/22 10/31/22 History Cholestyramine (with Sugar) 4 gm PO DAILY 10/31/22 10/31/22 History [Cholestyramine Packet] L.acidoph,Paracasei, B.lactis 1 cap PO DAILY 10/31/22 10/31/22 History [Probiotic] Allergies Allergy/AdvReac Type Severity Reaction Status Date / Time banana Allergy Nausea & Verified 10/31/22 15:51 Vomiting & Diarrhea codeine Allergy Nausea & Verified 10/31/22 15:51 Vomiting, hives/rash hydrocodone [From [place]] Allergy Rash/Hives Verified 10/31/22 15:51 morphine Allergy Nausea & Verified 10/31/22 15:51 Vomiting, rash/hives nitrofurantoin Allergy Unknown Verified 10/31/22 15:51 propoxyphene [From Darvon] Allergy Nausea & Verified 10/31/22 15:51 Vomiting, rash/hives Sulfa (Sulfonamide Allergy Rash/Hives Verified 10/31/22 15:51 Antibiotics) aripiprazole [From Abilify] AdvReac severe, Verified 10/31/22 15:51 increased anxiety. bupropion [From Wellbutrin] AdvReac severe, Verified 10/31/22 15:51 increased anxiety. Surgical - Exam Vital Signs Temp Pulse Resp BP Pulse Ox 98.0 F 94 18 130/92 95 10/31/22 12:22 10/31/22 12:22 10/31/22 12:22 10/31/22 12:22 10/31/22 12:22 - General well developed, well nourished, moderate distress - Eyes PERRL - ENT normal pinna - Neck no masses - Respiratory normal expansion - Cardiovascular Rhythm: regular - Abdomen Mildly distended. There is tenderness in the lower quadrants. Abdomen: soft Results - Labs 10/31/22 13:22 10/31/22 13:22 Abnormal Lab Results - Last 24 Hours (Table) 10/31/22 10/31/22 Range/Units 13:22 13:22 Neutrophils # 7.8 H (1.3-7.7) k/uL Sodium 135 L (137-145) mmol/L Glucose 115 H (74-99) mg/dL Magnesium 1.5 L (1.6-2.3) mg/dL Total Protein 5.8 L (6.3-8.2) g/dL Albumin 3.1 L (3.5-5.0) g/dL Diabetes panel 10/31/22 Range/Units 13:22 Sodium 135 L (137-145) mmol/L Potassium 4.2 (3.5-5.1) mmol/L Chloride 102 (98-107) mmol/L Carbon Dioxide 28 (22-30) mmol/L BUN 11 (7-17) mg/dL Creatinine 0.74 (0.52-1.04) mg/dL Glucose 115 H (74-99) mg/dL Calcium 9.9 (8.4-10.2) mg/dL AST 25 (14-36) U/L ALT 26 (4-34) U/L Alkaline Phosphatase 61 (38-126) U/L Total Protein 5.8 L (6.3-8.2) g/dL Albumin 3.1 L (3.5-5.0) g/dL Calcium panel 10/31/22 Range/Units 13:22 Calcium 9.9 (8.4-10.2) mg/dL Albumin 3.1 L (3.5-5.0) g/dL Pituitary panel 10/31/22 Range/Units 13:22 Sodium 135 L (137-145) mmol/L Potassium 4.2 (3.5-5.1) mmol/L Chloride 102 (98-107) mmol/L Carbon Dioxide 28 (22-30) mmol/L BUN 11 (7-17) mg/dL Creatinine 0.74 (0.52-1.04) mg/dL Glucose 115 H (74-99) mg/dL Calcium 9.9 (8.4-10.2) mg/dL Adrenal panel 10/31/22 Range/Units 13:22 Sodium 135 L (137-145) mmol/L Potassium 4.2 (3.5-5.1) mmol/L Chloride 102 (98-107) mmol/L Carbon Dioxide 28 (22-30) mmol/L BUN 11 (7-17) mg/dL Creatinine 0.74 (0.52-1.04) mg/dL Glucose 115 H (74-99) mg/dL Calcium 9.9 (8.4-10.2) mg/dL Total Bilirubin 0.8 (0.2-1.3) mg/dL AST 25 (14-36) U/L ALT 26 (4-34) U/L Alkaline Phosphatase 61 (38-126) U/L Total Protein 5.8 L (6.3-8.2) g/dL Albumin 3.1 L (3.5-5.0) g/dL - Imaging CT scan - pelvis: report reviewed (Possible closed loop obstruction with mesenteric edema and change in bowel caliber) Assessment and Plan Assessment: Nausea, vomiting, abdominal pain Closed loop small bowel obstruction most likely related to adhesions. Patient will undergo exposure laparotomy with lysis of adhesions.
--- NOTE | 2022-10-31 18:25 | P.OP ---
Date of Procedure: 10/31/22 Preoperative Diagnosis: Closed loop small bowel obstruction Postoperative Diagnosis: Closed loop small bowel obstruction related to adhesions Procedure(s) Performed: Exploratory laparotomy Lysis of adhesions Anesthesia: KELSIE Surgeon: Ulices Michel Estimated Blood Loss (ml): 5 Pathology: none sent Condition: stable Disposition: PACU Description of Procedure: The patient's placed on the operative table in the supine position. She received general endotracheal tube anesthesia. Her abdomen was prepped and draped usual sterile fashion. The abdomen was entered through a periumbilical midline incision. The fascia was opened. There was some serosanguineous ascites. The bowel appeared to be dilated. A body wall retractors placed in the wound. The bowel was then examined. There was evidence of a closed loop obstruction related to adhesions. The bowel appeared to be ischemic but viable. The adhesions were cut. And then the closed loop obstruction was released. The bowel was then run from the ligament of Treitz to the terminal ileum no other obstruction was seen. The bowel was examined and it didn't appear to be viable. The area was irrigated resolving seen. The fascia was then closed with looped #1 PDS suture. Skin was closed viry. Patient top she will she was sent to recovery room in stable condition.
[2022-10-31] MEDS ORDERED: LACTATED RINGERS 1,000 ML IV ONE ×2 (18:26→19:48)
[2022-10-31] MEDS ORDERED: HYDROmorphone 1 MG/ML 1 ML SYRINGE IVP PRN (18:26)
[2022-10-31] MEDS ORDERED: ACETAMINOPHEN TAB 325 MG TAB PO PRN (18:26)
[2022-10-31] MEDS ORDERED: METOCLOPRAMIDE 5 MG/ML 2 ML VIAL IVP PRN (18:26)
[2022-10-31] MEDS ORDERED: ONDANSETRON 4 MG/2 ML VIAL IVP ONE (18:39)
[2022-10-31] MEDS ORDERED: droPERidol 5 MG/2 ML VIAL IVP ONE (19:04)
[2022-10-31] MEDS ORDERED: fentaNYL (PF) 50 MCG/ML 2 ML AMP IVP ONE ×2 (19:10→19:20)
[2022-10-31] MEDS: KETOROLAC 15 MG/ML 1 ML VIAL IVP SCH (23:45)
--- NOTE | 2022-11-01 00:24 | P.CONS ---
History of Present Illness - Reason for Consult Consult date: 10/31/22 - History of Present Illness Patient is a 82-year-old female with a PMH of A. fib on Eliquis, hypertension, hyperlipidemia, who had presented to the emergency room with complaints of abdominal discomfort, nausea, and vomiting. The patient was diagnosed with small bowel obstruction with diffuse mesenteric edema via CT abdomen and pelvis. She was taken to the OR for an exploratory laparoscopy with the bowel appeared to be ischemic viable secondary to a closed loop obstruction from adhesions as per documentation. Patient was seen postoperatively on the surgical unit. She reported excellent control her pain, rated are 0 out of 10 at the time of interview. She reported previously having some nausea without vomiting. She denied chest pain or shortness of breath. Review of systems: Pertinent positives and negatives as discussed in HPI, a complete review of systems was performed and all other systems are negative. Physical examination: Vital signs reviewed General: non toxic, no distress, appears at stated age, normal weight Derm: no unusual rashes/lesions, warm Head: atraumatic, normocephalic, symmetric Eyes: EOMI, no lid lag, anicteric sclera, pupils equal round reactive to light ENT: Nose and ears atraumatic Neck: No cervical lymphadenopathy, trachea midline, supple Mouth: no lip lesion, mucus membranes moist Cardiovascular: S1S2 reg, no murmur, positive dorsalis pedis pulse bilateral, no edema Lungs: CTA bilateral, no rhonchi, no rales, no accessory muscle use Abdominal: Large dressing in place clean and dry, no guarding Ext: muscle strength 5 out of 5 in all 4 extremities grossly, no gross muscle atrophy, no contractures, Neuro: CN II-XI grossly intact, no gross focal neuro deficits Psych: Alert, oriented, appropriate affect Assessment: Hypomagnasemia Chronic conditions: A. fib, hypertension, hyperlipidemia Status post exploratory laparoscopy for small bowel obstruction Data Review: Laboratory evaluation revealed a magnesium of 1.5, lactic acid 1.2, sodium 135, troponin less than 0.012. Plan: Replace magnesium and monitor levels Resume the following home medications: -Terazosin and 5 mg by mouth daily at bedtime -Nortriptyline 20 mg by mouth daily at bedtime -Lopressor 25 mg by mouth twice a day -Requip 1 mg po bid -Losartan 50 mg by mouth daily -Cholestyramine 4 mg by mouth daily -Lipitor 10 mg by mouth daily at bedtime -Allopurinol 100 mg by mouth daily Defer resumption of Eliquis for chronic Afib and management of pain control to primary surgery service Past Medical History Past Medical History: Atrial Fibrillation, Chest Pain / Angina, Heart Failure, CVA/TIA, GERD/Reflux, Hyperlipidemia, Hypertension, Osteoarthritis (OA), Sleep Apnea/CPAP/BIPAP Additional Past Medical History / Comment(s): Pulmonary fibrosis. Other hx: DDD, DJD, SPINAL STENOSIS, chronic bilateral hip pain worse on R side, 2018 septic arthritis R wrist, occluded carotid right artery, TIA x 2, RLS, seasonal allergies, KEVIN with CPAP USED, UTIs, diverticular dx, HAD GERD IN PAST NONE SINCE HIATAL HERNIA SX.,CARDIOMYOPATHY, murmur. 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 History of Any Multi-Drug Resistant Organisms: None Reported Past Surgical History: Adenoidectomy, Appendectomy, Bladder Surgery, Cholecystectomy, Hysterectomy, Joint Replacement, Orthopedic Surgery, Tonsillectomy Additional Past Surgical History / Comment(s): bilateral hip replacments, R rotator cuff repair, vaginal hysterectomy with anterior and posterior repairs in 2001, sinus sx twice, niko cataracts-lens implants, hiatal hernia sx, bladder suspension, L breast bx-benign. Carotid surgery. Colonoscopy. Past Anesthesia/Blood Transfusion Reactions: No Reported Reaction, Motion Sickness Past Psychological History: Anxiety, Bipolar, Depression Smoking Status: Former smoker Past Alcohol Use History: None Reported Past Drug Use History: None Reported - Past Family History Mother Family Medical History: Cancer Additional Family Medical History / Comment(s): colon cancer Father Family Medical History: Congestive Heart Failure (CHF) Sister(s) Family Medical History: Cancer Additional Family Medical History / Comment(s): Breast cancer Daughter(s) Family Medical History: Cancer Additional Family Medical History / Comment(s): Cancer of the appendix. Medications and Allergies Home Medications Medication Instructions Recorded Confirmed Type Atorvastatin [Lipitor] 10 mg PO HS 12/17/16 10/31/22 History Escitalopram [Lexapro] 20 mg PO DAILY 12/17/16 10/31/22 History Famotidine 40 mg PO DAILY 12/17/16 10/31/22 History Nortriptyline [Pamelor] 20 mg PO HS 12/17/16 10/31/22 History rOPINIRole HCL [Requip] 1 mg PO BID 12/17/16 10/31/22 History Apixaban [Eliquis] 5 mg PO BID 11/26/17 10/31/22 History Metoprolol Tartrate [Lopressor] 25 mg PO BID 11/26/17 10/31/22 History Terazosin [Hytrin] 5 mg PO HS 04/16/18 10/31/22 History allopurinoL [Zyloprim] 100 mg PO DAILY 02/01/20 10/31/22 History Losartan [Cozaar] 50 mg PO DAILY 03/24/21 10/31/22 History Acetaminophen Tab [Tylenol] 650 mg PO Q6HR PRN tab 03/26/21 10/31/22 Rx Cholecalciferol [Vitamin D3 (125 125 mcg PO DAILY 30 Days #30 tablet 03/26/21 10/31/22 Rx Mcg = 5000 Iu)] ALPRAZolam [Xanax] 0.25 mg PO DAILY PRN 10/31/22 10/31/22 History Azithromycin [Zithromax Z Pack] See Taper PO DIRECTED 10/31/22 10/31/22 History Benzonatate [Tessalon Perles] 100 mg PO TID PRN 10/31/22 10/31/22 History Cholestyramine (with Sugar) 4 gm PO DAILY 10/31/22 10/31/22 History [Cholestyramine Packet] L.acidoph,Paracasei, B.lactis 1 cap PO DAILY 10/31/22 10/31/22 History [Probiotic] Allergies Allergy/AdvReac Type Severity Reaction Status Date / Time banana Allergy Nausea & Verified 10/31/22 15:51 Vomiting & Diarrhea codeine Allergy Nausea & Verified 10/31/22 15:51 Vomiting, hives/rash hydrocodone [From [place]] Allergy Rash/Hives Verified 10/31/22 15:51 morphine Allergy Nausea & Verified 10/31/22 15:51 Vomiting, rash/hives nitrofurantoin Allergy Unknown Verified 10/31/22 15:51 propoxyphene [From [place]] Allergy Nausea & Verified 10/31/22 15:51 Vomiting, rash/hives Sulfa (Sulfonamide Allergy Rash/Hives Verified 10/31/22 15:51 Antibiotics) aripiprazole [From Abilify] AdvReac severe, Verified 10/31/22 15:51 increased anxiety. bupropion [From Wellbutrin] AdvReac severe, Verified 10/31/22 15:51 increased anxiety. Physical Exam Vitals: Vital Signs Temp Pulse Pulse Resp BP BP Pulse Ox 10/31/22 20:02 97.7 F 60 19 112/65 93 L 10/31/22 19:55 84 16 129/60 98 10/31/22 19:40 73 16 119/67 98 10/31/22 19:25 78 16 133/63 95 10/31/22 19:10 85 18 154/94 96 10/31/22 18:55 91 18 184/91 97 10/31/22 18:40 90 16 198/107 99 10/31/22 18:25 97.2 F L 112 H 16 177/109 93 L 10/31/22 16:54 81 18 98 10/31/22 16:35 80 18 151/86 93 L 10/31/22 15:00 79 18 148/79 98 10/31/22 13:20 81 18 156/108 97 10/31/22 12:22 98.0 F 94 18 130/92 95 Intake and Output 10/31/22 10/31/22 10/31/22 06:59 14:59 22:59 Intake Total 1250 Output Total 45 Balance 1205 Intake: IV 1250 Output: Urine 20 Estimated Blood Loss 25 Other: Weight 63.503 kg Results CBC & Chem 7: 10/31/22 13:22 10/31/22 13:22 Labs: Abnormal Lab Results - Last 24 Hours (Table) 10/31/22 10/31/22 Range/Units 13:22 13:22 Neutrophils # 7.8 H (1.3-7.7) k/uL Sodium 135 L (137-145) mmol/L Glucose 115 H (74-99) mg/dL Magnesium 1.5 L (1.6-2.3) mg/dL Total Protein 5.8 L (6.3-8.2) g/dL Albumin 3.1 L (3.5-5.0) g/dL
[2022-11-01] MEDS: MAGNESIUM SULFATE-D5W PMX 1 GM in DEXTROSE/WATER 1 100ML.BAG IVPB SCH ×2 (01:01→02:38)
[2022-11-01] MEDS: KETOROLAC 15 MG/ML 1 ML VIAL IVP SCH ×4 (05:36→23:41)
[2022-11-01] MEDS: SODIUM CHLORIDE 0.9% 1,000 ML IV SCH (05:37)
[2022-11-01] MEDS: ENOXAPARIN 40 MG/0.4 ML SYRINGE SQ SCH (07:57)
[2022-11-01] MEDS: METOPROLOL TARTRATE 25 MG TAB PO SCH ×2 (07:58→21:46)
[2022-11-01] MEDS: allopurinoL 100 MG TAB PO SCH (07:58)
[2022-11-01] MEDS: LOSARTAN 50 MG TAB PO SCH (07:58)
[2022-11-01] MEDS ORDERED: LACTATED RINGERS 1,000 ML IV SCH (08:00)
[2022-11-01] MEDS ORDERED: CHOLESTYRAMINE (WITH SUGAR) 4 GM PACKET PO SCH (09:00)
[2022-11-01] MEDS ORDERED: ESCITALOPRAM 20 MG TAB PO SCH (09:00)
--- NOTE | 2022-11-01 16:02 | P.PN ---
Subjective Progress Note Date: 11/01/22 CHIEF COMPLAINT: Closed loop small bowel obstruction HISTORY OF PRESENT ILLNESS: Patient is postop day #1 status post exploratory laparotomy and lysis of adhesions. She reports her pain is controlled. She is tolerating clear liquids. Denies any flatus. Denies any nausea or vomiting. Afebrile. Magnesium 2.1. Patient's fluids have been running only at 75 mL per hour through the night and have been advanced to 100 mL per hour PHYSICAL EXAM: VITAL SIGNS: Reviewed. GENERAL: Well-developed in no acute distress. ABDOMEN: Soft. Nondistended. Incisional dressing clean dry and intact NEUROLOGIC: Alert and oriented. Cranial nerves II through XII grossly intact. ASSESSMENT: 1. Closed loop small bowel obstruction status post exploratory laparotomy and lysis of adhesions PLAN: -Advance diet to full liquids -Continue IV fluids -Continue pain management -Encourage patient to ambulate -Encourage patient to use incentive spirometer -Stop Questran for now until patient having bowel movements -Possible discharge tomorrow -DVT prophylaxis Lovenox Physician Dolly Operator note has been reviewed by physician. Signing provider agrees with the documented findings, assessment, and plan of care. Objective - Vital Signs Vital signs: Vital Signs Temp 97.8 F 11/01/22 07:30 Pulse 88 11/01/22 07:30 Resp 19 11/01/22 07:30 BP 150/81 11/01/22 07:30 Pulse Ox 95 11/01/22 07:30 FiO2 Intake & Output 10/31/22 11/01/22 11/01/22 18:59 06:59 18:59 Intake Total 950 300 Output Total 45 300 Balance 905 0 Weight 63.503 kg 63.503 kg Intake: IV 950 300 Output: Urine 20 300 Estimated Blood Loss 25 Other: Voiding Method Indwelling Catheter - Labs CBC & Chem 7: 10/31/22 13:22 10/31/22 13:22 Labs: Abnormal Lab Results - Last 24 Hours (Table) 10/31/22 10/31/22 Range/Units 13:22 13:22 Neutrophils # 7.8 H (1.3-7.7) k/uL Sodium 135 L (137-145) mmol/L Glucose 115 H (74-99) mg/dL Magnesium 1.5 L (1.6-2.3) mg/dL Total Protein 5.8 L (6.3-8.2) g/dL Albumin 3.1 L (3.5-5.0) g/dL
[2022-11-01] MEDS ORDERED: IPRATROPIUM-ALBUTEROL 3 ML NEB INHALATION PRN (17:07)
[2022-11-01 17:10] LABS: Basophils % (A) 0 %; Eosinophils # (A) 0.3 k/uL (0-0.7); Eosinophils % (A) 4 %; HCT 36.4 % (34.0-46.0); Lymphocytes # (A) 1.4 k/uL (1.0-4.8); Lymphocytes % (A) 21 %; MCH 28.1 pg (25.0-35.0); MCHC 31.3 g/dL (31.0-37.0); MCV 89.7 fL (80.0-100.0); Mean Platelet Volume 7.2; Monocytes # (A) 0.4 k/uL (0-1.0); Monocytes % (A) 6 %; Neutrophils # (A) 4.4 k/uL (1.3-7.7); Neutrophils % (A) 67 %; Platelet Count 162 k/uL (150-450); RBC 4.05 m/uL (3.80-5.40); RDW 14.7 % (11.5-15.5); WBC 6.5 k/uL (3.8-10.6)
--- NOTE | 2022-11-01 17:13 | P.PN ---
Subjective Progress Note Date: 11/01/22 Hospital course: Patient is a pleasant 82-year-old female with a past medical history of CAD, cardiomyopathy, hypertension, hyperlipidemia, paroxysmal atrial fibrillation on anticoagulation with Eliquis, pulmonary fibrosis, and obstructive sleep apnea CPAP dependent nightly. She presented to the emergency department on 10/31/22 with a chief complaint of lower abdominal pain accompanied by nausea and vomiting. She underwent full evaluation in the emergency department. CBC, coagulation profile, and BMP were completed showing no significant abnormalities. Magnesium was low at 1.5. Influenza A, influenza B, Covid, and RSV negative. Chest x-ray revealed scattered interstitial changes throughout the lungs bilaterally. EKG showing normal sinus rhythm with occasional PACs at [address] abdomen and pelvis with contrast was completed showing dilated bowel loops in the abdomen with diffuse mesenteric edema concerning for small bowel obstruction with small amount of ascites and postcholecystectomy and intrahepatic and extrahepatic bile duct dilation, and a 3.3 cm infrarenal abdominal aortic aneurysm. Patient was admitted under General surgery team for small bowel obstruction and taken for exploratory laparotomy with lysis of adhesions by Dr. Michel and we were consulted during postoperative timeframe for medical management throughout hospitalization. Physical exam: Vital signs reviewed and stable. General: Nontoxic, no distress and appears stated age. Derm: Skin warm and dry, normal coloration for ethnicity. Head: Atraumatic, normocephalic and symmetric. Eyes: EOMs intact, no lid lag, and anicteric sclera Mouth: no lip lesions, mucus membranes moist Cardiovascular: regular rate and rhythm with normal S1S2, systolic murmur, positive posterior tibial pulses bilaterally, and cap refill < 2 seconds. Lungs: Respirations even, regular, and unlabored on room air. Lungs CTA bilaterally, no rhonchi, no rales, no wheezing, and no accessory muscle usage. Abdominal: soft distended, nontender to palpation, no guarding, no appreciable organomegaly. Bowel sounds present. Ext: ROM intact. No gross muscle atrophy, no edema, no contractures Neuro: Speech clear, face symmetrical and CN II-XII grossly intact with no noted focal neuro deficits Psych: Alert and oriented to person, place, time, and situation. Appropriate and pleasant affect. Assessment and Plan of Care: Abdominal pain, nausea, vomiting Small bowel obstruction Hypomagnesemia likely secondary to emesis -Patient admitted under Gen. surgery team and underwent repair of small bowel ob struction with exploratory laparotomy with lysis of adhesions by Dr. Michel on 10/31/22. -Continue symptomatic care and pain management. -Encourage incentive spirometry 10-15 times hourly while awake. -Clear liquid diet to be advanced by primary admitting orthopedic surgery team. -Eliquis held at this time and to be resumed once cleared by general surgery. Coronary artery disease Cardiomyopathy Hypertension Hyperlipidemia Paroxysmal atrial fibrillation -Continue home medication regimen with atorvastatin 10 mg nightly, losartan 50 mg daily, and metoprolol 25 mg twice daily. -Recommend continuing Telemetry monitoring during postoperative period. Pulmonary fibrosis Obstructive sleep apnea CPAP dependent -Order placed for scheduled DuoNeb's 4 times daily and as needed for shortness of breath and/or wheezing. -Patient to be provided with oxygenation as needed . -Encourage use of incentive spirometry 10-15 times hourly while awake. -Order placed for CPAP nightly Abdominal aortic aneurysm -Incidental findings on CT shows a 3.3 cm infrarenal abdominal aortic aneurysm, recommend outpatient follow-up with vascular surgery. Data reviewed: Vital signs reviewed and stable. Blood pressure 150/81, heart rate 88, respiratory rate 19, temp 97.8F, SpO2 of 95% on 2 L O2. Orders placed for CBC, CMP, and magnesium. Will follow-up on postoperative labs and place additional orders as indicated based upon these results. Thank you for allowing us to participate in the care of this pleasant patient. Do not hesitate to contact us with questions. Someone can be reached from the [facility] hospitalist group all hours of the day at [phone] or via [employer]. Patient was seen independently by Nurse Pracitioner. This document was prepared using [employer] dictation software. Please allow for errors in special forces specialist, while rare they do occur Jose Cruz Flanagan NP rendered care for this patient independently, reviewed the findings and plan as documented in the note above. I did not physically speak with or examine the patient on this date. Objective - Vital Signs Vital signs: Vital Signs Temp 97.8 F 11/01/22 07:30 Pulse 88 11/01/22 07:30 Resp 19 11/01/22 07:30 BP 150/81 11/01/22 07:30 Pulse Ox 95 11/01/22 07:30 FiO2 Intake & Output 10/31/22 11/01/22 11/01/22 18:59 06:59 18:59 Intake Total 950 300 Output Total 45 300 Balance 905 0 Weight 63.503 kg 63.503 kg Intake: IV 950 300 Output: Urine 20 300 Estimated Blood Loss 25 Other: Voiding Method Indwelling Catheter - Labs CBC & Chem 7: 11/01/22 16:43 11/01/22 16:43 Labs: Abnormal Lab Results - Last 24 Hours (Table) 10/31/22 10/31/22 Range/Units 13:22 13:22 Neutrophils # 7.8 H (1.3-7.7) k/uL Sodium 135 L (137-145) mmol/L Glucose 115 H (74-99) mg/dL Magnesium 1.5 L (1.6-2.3) mg/dL Total Protein 5.8 L (6.3-8.2) g/dL Albumin 3.1 L (3.5-5.0) g/dL
[2022-11-01 17:14] LABS: ALT 19 U/L (4-34); AST 19 U/L (14-36); African American GFR (CKD) >90 (>60 ml/min/1.73 sqM); Albumin 2.5 g/dL (3.5-5.0); Alkaline Phosphatase 50 U/L (38-126); Anion Gap 2 mmol/L; Blood Urea Nitrogen 10 mg/dL (7-17); Calcium 8.8 mg/dL (8.4-10.2); Carbon Dioxide 30 mmol/L (22-30); Chloride 101 mmol/L (98-107); Globulin 2.4 g/dL; Glucose 88 mg/dL (74-99); Magnesium 1.8 mg/dL (1.6-2.3); Non-African American GFR(CKD) 81 (>60 ml/min/1.73 sqM); Potassium 3.8 mmol/L (3.5-5.1); Sodium 133 mmol/L (137-145); Total Bilirubin 0.8 mg/dL (0.2-1.3); Total Protein 4.9 g/dL (6.3-8.2)
[2022-11-01 17:16] LABS: HGB 11.4 gm/dL (11.4-16.0)
[2022-11-01] MEDS ORDERED: IPRATROPIUM-ALBUTEROL 3 ML NEB INHALATION SCH (20:00)
[2022-11-01] MEDS: IPRATROPIUM-ALBUTEROL 3 ML NEB INHALATION SCH (20:17)
[2022-11-01] MEDS: NORTRIPTYLINE 10 MG CAP PO SCH (21:46)
[2022-11-01] MEDS: ATORVASTATIN 10 MG TAB PO SCH (21:46)
[2022-11-01] MEDS: DOXAZOSIN 4 MG TAB PO SCH (21:47)
[2022-11-02] MEDS: KETOROLAC 15 MG/ML 1 ML VIAL IVP SCH ×3 (06:05→16:46)
[2022-11-02 07:36] LABS: HCT 36.2 % (34.0-46.0); HGB 11.8 gm/dL (11.4-16.0); MCH 29.1 pg (25.0-35.0); MCHC 32.7 g/dL (31.0-37.0); MCV 88.9 fL (80.0-100.0); Mean Platelet Volume 7.3; Platelet Count 161 k/uL (150-450); RBC 4.07 m/uL (3.80-5.40); RDW 14.6 % (11.5-15.5)
--- NOTE | 2022-11-02 08:14 | P.PN ---
Progress Note - Text Progress Note Date: 11/02/22 Patient feels better. She is tolerating her full liquid diet. On exam vessels are still. Abdomen soft. Incisions clean dry intact. Status post lysis of adhesion for closed loop bowel obstruction. Patient will have her diet advanced. Anticipate discharge home the next 48 hours.
[2022-11-02 08:33] LABS: ALT 18 U/L (4-34); AST 17 U/L (14-36); African American GFR (CKD) 88 (>60 ml/min/1.73 sqM); Albumin 2.5 g/dL (3.5-5.0); Albumin/Globulin Ratio 1.1; Alkaline Phosphatase 52 U/L (38-126); Anion Gap 1 mmol/L; Blood Urea Nitrogen 10 mg/dL (7-17); Carbon Dioxide 29 mmol/L (22-30); Chloride 104 mmol/L (98-107); Globulin 2.3 g/dL; Glucose 105 mg/dL (74-99); Magnesium 1.7 mg/dL (1.6-2.3); Non-African American GFR(CKD) 76 (>60 ml/min/1.73 sqM); Potassium 4.1 mmol/L (3.5-5.1); Sodium 134 mmol/L (137-145); Total Bilirubin 0.7 mg/dL (0.2-1.3); Total Protein 4.8 g/dL (6.3-8.2)
[2022-11-02] MEDS: IPRATROPIUM-ALBUTEROL 3 ML NEB INHALATION SCH ×4 (08:39→20:18)
[2022-11-02] MEDS: METOPROLOL TARTRATE 25 MG TAB PO SCH ×2 (08:58→20:37)
[2022-11-02] MEDS: allopurinoL 100 MG TAB PO SCH (08:58)
[2022-11-02] MEDS: LOSARTAN 50 MG TAB PO SCH (08:58)
[2022-11-02] MEDS: ENOXAPARIN 40 MG/0.4 ML SYRINGE SQ SCH (08:58)
--- NOTE | 2022-11-02 14:34 | P.PN ---
Subjective Progress Note Date: 11/02/22 Hospital course: Patient is a pleasant 82-year-old female with a past medical history of CAD, cardiomyopathy, hypertension, hyperlipidemia, paroxysmal atrial fibrillation on anticoagulation with Eliquis, pulmonary fibrosis, and obstructive sleep apnea CPAP dependent nightly. She presented to the emergency department on 10/31/22 with a chief complaint of lower abdominal pain accompanied by nausea and vomiting. She underwent full evaluation in the emergency department. CBC, coagulation profile, and BMP were completed showing no significant abnormalities. Magnesium was low at 1.5. Influenza A, influenza B, Covid, and RSV negative. Chest x-ray revealed scattered interstitial changes throughout the lungs bilaterally. EKG showing normal sinus rhythm with occasional PACs at [address] abdomen and pelvis with contrast was completed showing dilated bowel loops in the abdomen with diffuse mesenteric edema concerning for small bowel obstruction with small amount of ascites and postcholecystectomy and intrahepatic and extrahepatic bile duct dilation, and a 3.3 cm infrarenal abdominal aortic aneurysm. Patient was admitted under General surgery team for small bowel obstruction and taken for exploratory laparotomy with lysis of adhesions by Dr. Michel and we were consulted during postoperative timeframe for medical management throughout hospitalization. Physical exam: Patient seen and fully evaluated at bedside this morning. She is postoperative day 2 and reports mild nausea this morning along with mild postoperative pain. She denies having any episodes of vomiting and has been tolerating oral intake. Patient does report passing flatus but denies having any bowel movements since surgical procedure was completed. Patient denies having any other complaints or concerns at this time. Vital signs reviewed and stable. General: Nontoxic, no distress and appears stated age. Derm: Skin warm and dry, normal coloration for ethnicity. Head: Atraumatic, normocephalic and symmetric. Eyes: EOMs intact, no lid lag, and anicteric sclera Mouth: no lip lesions, mucus membranes moist Cardiovascular: regular rate and rhythm with normal S1S2, systolic murmur, p ositive posterior tibial pulses bilaterally, and cap refill < 2 seconds. Lungs: Respirations even, regular, and unlabored on room air. Lungs CTA bilaterally, no rhonchi, no rales, no wheezing, and no accessory muscle usage. Abdominal: soft distended, no guarding, no appreciable organomegaly. Bowel sounds present. Ext: ROM intact. No gross muscle atrophy, no edema, no contractures Neuro: Speech clear, face symmetrical and CN II-XII grossly intact with no noted focal neuro deficits Psych: Alert and oriented to person, place, time, and situation. Appropriate and pleasant affect. Assessment and Plan of Care: Acute postoperative blood loss anemia Abdominal pain, nausea, vomiting Small bowel obstruction -Patient admitted under Gen. surgery team and underwent repair of small bowel obstruction with exploratory laparotomy with lysis of adhesions by Dr. Michel on 10/31/22. -Continue symptomatic care and pain management. -Encourage incentive spirometry 10-15 times hourly while awake. -Patient was tolerating full liquid diet and general surgery advancing to regular diet at this time. -Patient with acute postoperative blood loss anemia with preoperative hemoglobin of 14.4 and postoperative hemoglobin of 11.4, this is an expected and stable finding. -Eliquis was resumed by general surgery at this time. Hypomagnesemia Magnesium 1.7 orders placed for magnesium sulfate 2 g IVPB. We will reevaluate magnesium levels with a.m. labs to monitor for improvement/resolution of hypomagnesemia. Coronary artery disease Cardiomyopathy Hypertension Hyperlipidemia Paroxysmal atrial fibrillation -Continue home medication regimen with atorvastatin 10 mg nightly, losartan 50 mg daily, and metoprolol 25 mg twice daily. -Recommend continuing Telemetry monitoring during postoperative period. Pulmonary fibrosis Obstructive sleep apnea CPAP dependent -Continue scheduled DuoNeb's 4 times daily and as needed for shortness of breath and/or wheezing. -Patient to be provided with oxygenation as needed . -Encourage use of incentive spirometry 10-15 times hourly while awake. -Continue CPAP nightly Abdominal aortic aneurysm -Incidental findings on CT shows a 3.3 cm infrarenal abdominal aortic aneurysm, recommend outpatient follow-up with vascular surgery. Data reviewed: Vital signs reviewed and stable. Blood pressure 149/74, heart rate 92, respiratory rate 19, temperature 97.7F, and SpO2 of 93% on room air. Morning labs reviewed. CBC unremarkable with stable hemoglobin of 11.8. BMP showing mild hyponatremia with sodium of 134. Liver profile unremarkable. Magnesium slightly low 1.7 Orders placed for CBC, CMP, and magnesium. Will follow-up on these results and place additional orders as indicated based upon these results. Thank you for allowing us to participate in the care of this pleasant patient. Do not hesitate to contact us with questions. Someone can be reached from the [facility] hospitalist group all hours of the day at [phone] or via perfect serve. Patient was seen independently by Nurse Pracitioner. This document was prepared using [employer] dictation software. Please allow for errors in production operations engineer, while rare they do occur Jose Cruz Flanagan NP rendered care for this patient independently, reviewed the findings and plan as documented in the note above. I did not physically speak with or examine the patient on this date. Objective - Vital Signs Vital signs: Vital Signs Temp 97.7 F 11/02/22 07:03 Pulse 92 11/02/22 07:03 Resp 19 11/02/22 07:03 BP 149/74 11/02/22 07:03 Pulse Ox 93 L 11/02/22 07:03 FiO2 Intake & Output 11/01/22 11/02/22 11/02/22 18:59 06:59 18:59 Intake Total 1200 1960 Output Total 1400 Balance -200 1960 Intake: IV 1200 1000 Lactated Ringers 1,000 ml 1200 1000 @ 100 mls/hr IV .Q10H SENG Rx#:[id number] Oral 960 Output: Urine 1400 Other: Voiding Method Indwelling Catheter Toilet # Voids 2 - Labs CBC & Chem 7: 11/02/22 07:12 11/02/22 07:12 Labs: Abnormal Lab Results - Last 24 Hours (Table) 11/01/22 Range/Units 16:43 Sodium 133 L (137-145) mmol/L Total Protein 4.9 L (6.3-8.2) g/dL Albumin 2.5 L (3.5-5.0) g/dL
[2022-11-02] MEDS: MAGNESIUM SULFATE-D5W PMX 1 GM in DEXTROSE/WATER 1 100ML.BAG IVPB SCH ×2 (15:38→16:46)
[2022-11-02] MEDS: ATORVASTATIN 10 MG TAB PO SCH (20:37)
[2022-11-02] MEDS: APIXABAN 5 MG TAB PO SCH (20:37)
[2022-11-02] MEDS: DOXAZOSIN 4 MG TAB PO SCH (20:38)
[2022-11-02] MEDS: NORTRIPTYLINE 10 MG CAP PO SCH (20:38)
[2022-11-03] MEDS: allopurinoL 100 MG TAB PO SCH (07:54)
[2022-11-03] MEDS: LOSARTAN 50 MG TAB PO SCH (07:54)
[2022-11-03] MEDS: APIXABAN 5 MG TAB PO SCH ×2 (07:54→20:22)
[2022-11-03] MEDS: METOPROLOL TARTRATE 25 MG TAB PO SCH (07:54)
[2022-11-03] MEDS: IPRATROPIUM-ALBUTEROL 3 ML NEB INHALATION SCH ×4 (08:42→22:22)
[2022-11-03 09:05] LABS: HCT 35.3 % (37.2-46.3); HGB 11.5 d/dL (12.0-15.0); MCH 28.2 pg (27.0-32.0); MCHC 32.6 d/dL (32.0-37.0); MCV 86.5 FL (80.0-97.0); Mean Platelet Volume 9.4 FL (9.5-12.2); NRBC Per 100 WBC 0 X 10*3/uL (0.00-0.01); Platelet Count 185 X 10*3/uL (140-440); RBC 4.08 X 10*6/uL (4.10-5.20); RDW 14.8 % (11.5-14.5); WBC 8.41 X 10*3/uL (4.50-10.00)
[2022-11-03] MEDS ORDERED: DILTIAZEM DRIP BOLUS FROM BAG 1 MG SOLN IV STA (09:22)
[2022-11-03] MEDS ORDERED: METOPROLOL TARTRATE 25 MG TAB PO STA (09:43)
--- NOTE | 2022-11-03 10:20 | P.PN ---
Progress Note - Text Progress Note Date: 11/03/22 The patient has developed A. fib with rapid ventricular rate. Patient is minimal Casey incisional pain. On exam vital signs appear stable. Abdomen is soft incision is clean and intact. Patient will be evaluated by cardiology. We to discharge home the next 48 hours.
[2022-11-03] MEDS: DILTIAZEM 125 MG in SODIUM CHLORIDE 0.9% 100 ML IV SCH (10:34)
[2022-11-03 11:55] LABS: ALT 19 U/L (8-44); AST 16 U/L (13-35); Albumin 3.2 d/dL (3.8-4.9); Alkaline Phosphatase 56 U/L (41-126); Blood Urea Nitrogen 11.2 mg/dL (9.0-27.0); Carbon Dioxide 25.4 mmol/L (21.6-31.8); Chloride 101 mmol/L (96-109); Glucose 105 mg/dL (70-110); Potassium 4.4 mmol/L (3.5-5.5); Sodium 136 mmol/L (135-145); Total Bilirubin 0.5 mg/dL (0.3-1.2); Total Protein 5.2 d/dL (6.2-8.2)
--- NOTE | 2022-11-03 12:17 | P.CRDCN ---
History of Present Illness Consult date: 11/03/22 History of present illness: History of present illness: This is an 82-year-old female patient of Dr. Benitez with PMH of paroxysmal atrial fibrillation, PVD, hyperlipidema, HTN, MVR, obstructive sleep apnea. We have been asked to evaluate for Afib w RVR. Patient presented to the hospital on 10/31 with abdominal pain found to have a small bowel obstruction and underwent exploratory laparotomy with lysis of adhesions on 10/31. Patient states she has not had a bowel movement since that time. She denies having any chest pain, shortness of breath, palpitations. Patient was found to be in A. fib with RVR this morning 140s and has been ordered for transfer to the cardiac stepdown unit and Cardizem drip to be started. Patient did receive her normal dose of Lopressor 25 mg this morning. She has also been resumed on eliquis. EKG atrial fibrillation at 150 bpm WBC 8.4, hemoglobin 11.5, platelet count 185. CMP unremarkable. Home cardiac medications: Eliquis 5 mg twice daily, Lipitor 10 mg at bedtime, losartan 50 mg daily, Lopressor 25 mg twice daily, Hytrin 5 mg at bedtime Echocardiogram performed 06/2022 revealed EF 55-60%, moderate left ventricular hypertrophy, moderate mitral regurgitation, mild tricuspid regurgitation. Review Of Systems: At the time of my evaluation: Constitutional: No fever, no chills. No weakness, fatigue or lethargy. EENT: No headache. No dizziness. Lungs: No shortness of breath, cough, no sputum production. No wheezing. Cardiovascular: No chest pain, no lower extremity edema. No palpitations. No paroxysmal nocturnal dyspnea. No orthopnea. No lightheadedness or dizziness. No syncopal episodes. Abdominal: No abdominal pain. No nausea, vomiting. No diarrhea. Reports constipation. Musculoskeletal: No myalgias. No muscle weakness, no frequent falls. Integumentary: No wounds. No rash. No unusual bruising. Neurologic: No aphasia. No facial droop. No change in mentation. Physical examination: Gen: This is an 82-year-old female. She is resting bed appears to be comfortable and in no acute distress.VS: reviewed HEENT: Head is atraumatic, normocephalic. Pupils equal, round. Sclerae is anicteric. NECK: Supple. No JVD. . LUNGS: Clear to auscultation. No wheezes or rhonchi. No intercostal ret ractions. HEART: Irregular rate and rhythm. 2/6 systolic murmur. EXTREMITIES: No pedal edema. No calf tenderness. NEUROLOGICAL: Patient is awake, alert and oriented x3. Assessment: Small bowel obstruction status post exploratory laparotomy and lysis of adhesions A. fib with RVR Paroxysmal atrial fibrillation Peripheral vascular disease Hyperlipidemia Hypertension Mitral valve regurgitation Obstructive sleep apnea Plan: Patient has been ordered for Cardizem drip by attending and is waiting for transfer to cardiac stepdown unit Increase Lopressor to 50 mg twice daily given additional 25 now No need to obtain echocardiogram as this was done in May Continue other cardiac medications including eliquis Further recommendations to follow based upon clinical course Thank you kindly for this consultation. Nurse practitioner note has been reviewed, I agree with documented findings and plan of care. Patient was seen and examined. Past Medical History Past Medical History: Atrial Fibrillation, Chest Pain / Angina, Heart Failure, CVA/TIA, GERD/Reflux, Hyperlipidemia, Hypertension, Osteoarthritis (OA), Sleep Apnea/CPAP/BIPAP Additional Past Medical History / Comment(s): Pulmonary fibrosis. Other hx: DDD, DJD, SPINAL STENOSIS, chronic bilateral hip pain worse on R side, 2018 septic arthritis R wrist, occluded carotid right artery, TIA x 2, RLS, seasonal allergies, KEVIN with CPAP USED, UTIs, diverticular dx, HAD GERD IN PAST NONE SINCE HIATAL HERNIA SX.,CARDIOMYOPATHY, murmur. PAST BARTENDER HISTORY: She has no history of STDs. History of Any Multi-Drug Resistant Organisms: None Reported Past Surgical History: Adenoidectomy, Appendectomy, Bladder Surgery, Cholecystectomy, Hysterectomy, Joint Replacement, Orthopedic Surgery, Tonsillectomy Additional Past Surgical History / Comment(s): bilateral hip replacments, R rotator cuff repair, vaginal hysterectomy with anterior and posterior repairs in 2001, sinus sx twice, niko cataracts-lens implants, hiatal hernia sx, bladder suspension, L breast bx-benign. Carotid surgery. Colonoscopy. Past Anesthesia/Blood Transfusion Reactions: No Reported Reaction, Motion Sickne ss Past Psychological History: Anxiety, Bipolar, Depression Smoking Status: Former smoker Past Alcohol Use History: None Reported Past Drug Use History: None Reported - Past Family History Mother Family Medical History: Cancer Additional Family Medical History / Comment(s): colon cancer Father Family Medical History: Congestive Heart Failure (CHF) Sister(s) Family Medical History: Cancer Additional Family Medical History / Comment(s): Breast cancer Daughter(s) Family Medical History: Cancer Additional Family Medical History / Comment(s): Cancer of the appendix. Medications and Allergies Home Medications Medication Instructions Recorded Confirmed Type Atorvastatin [Lipitor] 10 mg PO HS 12/17/16 10/31/22 History Escitalopram [Lexapro] 20 mg PO DAILY 12/17/16 10/31/22 History Famotidine 40 mg PO DAILY 12/17/16 10/31/22 History Nortriptyline [Pamelor] 20 mg PO HS 12/17/16 10/31/22 History rOPINIRole HCL [Requip] 1 mg PO BID 12/17/16 10/31/22 History Apixaban [Eliquis] 5 mg PO BID 11/26/17 10/31/22 History Metoprolol Tartrate [Lopressor] 25 mg PO BID 11/26/17 10/31/22 History Terazosin [Hytrin] 5 mg PO HS 04/16/18 10/31/22 History allopurinoL [Zyloprim] 100 mg PO DAILY 02/01/20 10/31/22 History Losartan [Cozaar] 50 mg PO DAILY 03/24/21 10/31/22 History Acetaminophen Tab [Tylenol] 650 mg PO Q6HR PRN tab 03/26/21 10/31/22 Rx Cholecalciferol [Vitamin D3 (125 125 mcg PO DAILY 30 Days #30 tablet 03/26/21 10/31/22 Rx Mcg = 5000 Iu)] ALPRAZolam [Xanax] 0.25 mg PO DAILY PRN 10/31/22 10/31/22 History Azithromycin [Zithromax Z Pack] See Taper PO DIRECTED 10/31/22 10/31/22 History Benzonatate [Tessalon Perles] 100 mg PO TID PRN 10/31/22 10/31/22 History Cholestyramine (with Sugar) 4 gm PO DAILY 10/31/22 10/31/22 History [Cholestyramine Packet] L.acidoph,Paracasei, B.lactis 1 cap PO DAILY 09/21/23 09/21/23 History [Probiotic] Allergies Allergy/AdvReac Type Severity Reaction Status Date / Time banana Allergy Nausea & Verified 10/31/22 15:51 Vomiting & Diarrhea codeine Allergy Nausea & Verified 10/31/22 15:51 Vomiting, hives/rash hydrocodone [From [place]] Allergy Rash/Hives Verified 10/31/22 15:51 morphine Allergy Nausea & Verified 10/31/22 15:51 Vomiting, rash/hives nitrofurantoin Allergy Unknown Verified 10/31/22 15:51 propoxyphene [From Darvon] Allergy Nausea & Verified 10/31/22 15:51 Vomiting, rash/hives Sulfa (Sulfonamide Allergy Rash/Hives Verified 10/31/22 15:51 Antibiotics) aripiprazole [From Abilify] AdvReac severe, Verified 10/31/22 15:51 increased anxiety. bupropion [From Wellbutrin] AdvReac severe, Verified 10/31/22 15:51 increased anxiety. Physical Exam Vitals: Vital Signs Temp Pulse Pulse Resp BP Pulse Ox 11/03/22 07:28 98.6 F 107 H 18 144/71 95 11/03/22 01:39 98.1 F 99 19 169/91 93 L 11/02/22 20:41 97.9 F 84 19 161/86 94 L 11/02/22 20:30 75 11/02/22 20:20 78 11/02/22 16:34 76 11/02/22 16:22 72 11/02/22 14:00 98.2 F 66 19 91/58 98 Intake and Output 11/02/22 11/03/22 11/03/22 22:59 06:59 14:59 Other: Voiding Method Toilet # Voids 2 2 Results 11/03/22 06:02 11/03/22 06:02 CBC 11/03/22 Range/Units 06:02 WBC 8.41 (4.50-10.00) X 10*3/uL RBC 4.08 L (4.10-5.20) X 10*6/uL Hgb 11.5 L (12.0-15.0) d/dL Hct 35.3 L (37.2-46.3) % Plt Count 185 (140-440) X 10*3/uL Current Medications Generic Name Dose Route Start Last Admin Trade Name Freq PRN Reason Stop Dose Admin Acetaminophen 650 mg 10/31/22 18:26 11/01/22 18:22 Acetaminophen Tab 325 Mg Tab PO 650 mg Q6HR PRN Administration Mild Pain or Fever >= 100.5 Albuterol/Ipratropium 3 ml 11/01/22 17:07 Ipratropium-Albuterol 3 Ml Neb INHALATION RT-Q2H PRN Shortness Of Breath Or Wheezing Albuterol/Ipratropium 3 ml 11/01/22 20:00 11/03/22 08:42 Ipratropium-Albuterol 3 Ml Neb INHALATION Not Given RT-QID SENG Allopurinol 100 mg 11/01/22 09:00 11/03/22 07:54 Allopurinol 100 Mg Tab PO 100 mg DAILY SENG Administration Apixaban 5 mg 11/02/22 21:00 11/03/22 07:54 Apixaban 5 Mg Tab PO 5 mg BID SENG Administration Protocol Atorvastatin Calcium 10 mg 11/01/22 21:00 11/02/22 20:37 Atorvastatin 10 Mg Tab PO 10 mg HS SENG Administration Doxazosin Mesylate 4 mg 11/01/22 21:00 11/02/22 20:38 Doxazosin 4 Mg Tab PO 4 mg HS SENG Administration Hydromorphone HCl 0.5 mg 10/31/22 18:26 Hydromorphone 0.5 Mg/0.5 Ml Syringe IVP Q3HR PRN Moderate Pain (Scale 4 to 6) Hydromorphone HCl 1 mg 10/31/22 18:26 Hydromorphone 1 Mg/Ml 1 Ml Syringe IVP Q4HR PRN Severe Pain (Scale 7 to 10) Diltiazem HCl 125 mg/ Sodium 125 mls @ 0 mls/hr 11/03/22 09:30 Chloride IV .Q0M [facility] Protocol Per Protocol Losartan Potassium 50 mg 11/01/22 09:00 11/03/22 07:54 Losartan 50 Mg Tab PO 50 mg DAILY SENG Administration Metoclopramide HCl 10 mg 10/31/22 18:26 11/02/22 12:14 Metoclopramide 5 Mg/Ml 2 Ml Vial IVP 10 mg Q6H PRN Administration Nausea And Vomiting Metoprolol Tartrate 25 mg 11/01/22 09:00 11/03/22 07:54 Metoprolol Tartrate 25 Mg Tab PO 25 mg BID SENG Administration Naloxone HCl 0.2 mg 10/31/22 18:26 Naloxone 0.4 Mg/Ml 1 Ml Vial IV Q2M PRN Opioid Reversal Nortriptyline HCl 20 mg 11/01/22 21:00 11/02/22 20:38 Nortriptyline 10 Mg Cap PO 20 mg HS SENG Administration Ondansetron HCl 4 mg 10/31/22 16:11 Ondansetron 4 Mg/2 Ml Vial IVP 11/30/22 16:12 Q8HR PRN Nausea And Vomiting Ropinirole HCl 1 mg 11/01/22 00:15 11/03/22 07:54 Ropinirole Hcl 1 Mg Tab PO 1 mg BID SENG Administration Intake and Output 11/02/22 11/03/22 11/03/22 22:59 06:59 14:59 Other: Voiding Method Toilet # Voids 2 2 11/03/22 06:02 11/02/22 07:12
--- NOTE | 2022-11-03 16:03 | P.PN ---
Subjective Progress Note Date: 11/03/22 Hospital course: Patient is a pleasant 82-year-old female with a past medical history of CAD, cardiomyopathy, hypertension, hyperlipidemia, paroxysmal atrial fibrillation on anticoagulation with Eliquis, pulmonary fibrosis, and obstructive sleep apnea CPAP dependent nightly. She presented to the emergency department on 10/31/22 with a chief complaint of lower abdominal pain accompanied by nausea and vomiting. She underwent full evaluation in the emergency department. CBC, coagulation profile, and BMP were completed showing no significant abnormalities. Magnesium was low at 1.5. Influenza A, influenza B, Covid, and RSV negative. Chest x-ray revealed scattered interstitial changes throughout the lungs bilaterally. EKG showing normal sinus rhythm with occasional PACs at [address] abdomen and pelvis with contrast was completed showing dilated bowel loops in the abdomen with diffuse mesenteric edema concerning for small bowel obstruction with small amount of ascites and postcholecystectomy and intrahepatic and extrahepatic bile duct dilation, and a 3.3 cm infrarenal abdominal aortic aneurysm. Patient was admitted under General surgery team for small bowel obstruction and taken for exploratory laparotomy with lysis of adhesions by Dr. Michel and we were consulted during postoperative timeframe for medical management throughout hospitalization.On the morning of 11/03/22, received a page at 8 AM the patientas a new onset atrial fibrillation with RVR. Patient has a known history of paroxysmal atrial fibrillation but this morning when into RVR and has been sustaining with a ventricular rate between 150s and 170s. Order placed for stat EKG, Cardizem bolus 10 mg IVP 1 dose followed by Cardizem infusion and transferred to stepdown unit. EKG reviewed showing atrial fibrillation with RVR to sustain ventricular rate of 155 bpm. Order placed for echocardiogram as most recent echocardiogram available for comparison was completed on 04/17/18 showing an EF of 55-60% with moderate left ventricular hypertrophy and moderate mitral regurgitation. Physical exam: Patient seen and fully evaluated at bedside this morning. She is postoperative day 3 and developed atrial fibrillation with RVR this morning. Patient's ventricular rate sustaining between 150s and 170s. Patient being transferred to cardiac stepdown unit and to be given stat medications to control heart rate at this time. Patient currently asymptomatic denies having any chest pain, palpitations, shortness of breath, headache, lightheadedness, dizziness, or experiencing any numbness/tingling/weakness in her extremities. Patient does report tolerating oral intake with no episodes of nausea or vomiting, reports passing flatus, and denies having bowel movement since surgery. Vital signs reviewed and stable. General: Nontoxic, no distress and appears stated age. Derm: Skin warm and dry, normal coloration for ethnicity. Head: Atraumatic, normocephalic and symmetric. Eyes: EOMs intact, no lid lag, and anicteric sclera Mouth: no lip lesions, mucus membranes moist Cardiovascular: Irregularly irregular, systolic murmur, positive posterior tibial pulses bilaterally, and cap refill < 2 seconds. Lungs: Respirations even, regular, and unlabored on room air. Lungs CTA bilaterally, no rhonchi, no rales, no wheezing, and no accessory muscle usage. Abdominal: soft distended, no guarding, no appreciable organomegaly. Bowel sounds present. Abdominal dressing clean dry and intact with small area of bleed through/shadowing to center of dressing. Ext: ROM intact. No gross muscle atrophy, no edema, no contractures Neuro: Speech clear, face symmetrical and CN II-XII grossly intact with no noted focal neuro deficits Psych: Alert and oriented to person, place, time, and situation. Appropriate and pleasant affect. Assessment and Plan of Care: Atrial fibrillation with RVR -Patient has history of paroxysmal atrial fibrillation, received notification this morning that patient was in atrial fibrillation with RVR sustaining ventricular rate between 160s and 170s. Patient is on metoprolol 25 mg twice daily and RN reports patient received dose this morning. Orders placed for Cardizem bolus 10 mg IVP 1 dose and for patient to be started on Cardizem infusion and titrate to maintain ventricular rate less than 100. Order placed for stat EKG and consultation to cardiology. -We will also place order for a repeat echocardiogram, as last echocardiogram available for review was completed on 04/17/18 showing an EF of 55-60% with moderate left ventricular hypertrophy and moderate mitral regurgitation. -Continue anticoagulation with Eliquis 5 mg twice daily -Order also placed for TSH with free T4. Acute postoperative blood loss anemia Abdominal pain, nausea, vomiting Small bowel obstruction -Patient admitted under Gen. surgery team and underwent repair of small bowel ob struction with exploratory laparotomy with lysis of adhesions by Dr. Michel on 10/31/22. -Continue symptomatic care and pain management. -Encourage incentive spirometry 10-15 times hourly while awake. -Patient was tolerating full liquid diet and general surgery advancing to regular diet at this time. -Patient with acute postoperative blood loss anemia with preoperative hemoglobin of 14.4 and postoperative hemoglobin stable at 11.5, this is an expected and stable finding, no further interventions or testing indicated. Hypomagnesemia, resolved Coronary artery disease Cardiomyopathy Hypertension Hyperlipidemia -Continue home medication regimen with atorvastatin 10 mg nightly, losartan 50 mg daily, and metoprolol 25 mg twice daily. -Recommend continuing Telemetry monitoring during postoperative period. Pulmonary fibrosis Obstructive sleep apnea CPAP dependent -Continue scheduled DuoNeb's 4 times daily and as needed for shortness of breath and/or wheezing. -Patient to be provided with oxygenation as needed . -Encourage use of incentive spirometry 10-15 times hourly while awake. -Continue CPAP nightly Abdominal aortic aneurysm -Incidental findings on CT shows a 3.3 cm infrarenal abdominal aortic aneurysm, recommend outpatient follow-up with vascular surgery. Data reviewed: Vital signs reviewed and stable. Blood pressure 144/71, heart rate ranging between 150s and 170s, respiratory rate 18, temp 98.6F, and SpO2 of 95% on room air. Morning labs reviewed. CBC showing stable no ascitic anemia with hemoglobin of 11.5 otherwise normal findings. BMP unremarkable. Liver profile also unremarkable. Hypomagnesemia resolved with repeat magnesium of 2.0. Thank you for allowing us to participate in the care of this pleasant patient. Do not hesitate to contact us with questions. Someone can be reached from the [facility] hospitalist group all hours of the day at [phone] or via perfect serve. Patient was seen independently by Nurse Pracitioner. This document was prepared using inexio dictation software. Please allow for errors in disability insurance claim examiner, while rare they do occur Objective - Vital Signs Vital signs: Vital Signs Temp 98.6 F 11/03/22 07:28 Pulse 107 H 11/03/22 07:28 Resp 18 11/03/22 07:28 BP 144/71 11/03/22 07:28 Pulse Ox 95 11/03/22 07:28 FiO2 Intake & Output 11/02/22 11/03/22 11/03/22 18:59 06:59 18:59 Other: Voiding Method Toilet Toilet # Voids 2 2 - Labs CBC & Chem 7: 11/03/22 06:02 09/24/23 06:02 Labs: Abnormal Lab Results - Last 24 Hours (Table) 11/02/22 Range/Units 07:12 Sodium 134 L (137-145) mmol/L Glucose 105 H (74-99) mg/dL Total Protein 4.8 L (6.3-8.2) g/dL Albumin 2.5 L (3.5-5.0) g/dL
--- NOTE | 2022-11-03 19:28 | XR ---
EXAMINATION TYPE: XR chest 1V portable DATE OF EXAM: 11/03/2022 7:20 PM CLINICAL INDICATION:Female, 82 years old with history of cough; COMPARISON: Chest radiographs from TECHNIQUE: XR chest 1V portable Frontal view of the chest. FINDINGS: Lungs/Pleura: There is no evidence of pleural effusion, focal consolidation, or pneumothorax. Pulmonary vascularity: Pulmonary vascular congestion. Heart/mediastinum: Cardiomediastinal silhouette is enlarged and stable. Musculoskeletal: No acute osseous pathology. IMPRESSION: Cardiomegaly and mild pulmonary vascular congestion. Correlate with BNP for congestive heart failure.
[2022-11-03] MEDS: ATORVASTATIN 10 MG TAB PO SCH (20:22)
[2022-11-03] MEDS: DOXAZOSIN 4 MG TAB PO SCH (20:22)
[2022-11-03] MEDS: METOPROLOL TARTRATE 50 MG TAB PO SCH (20:22)
[2022-11-04] MEDS: NORTRIPTYLINE 10 MG CAP PO SCH ×2 (00:06→20:40)
[2022-11-04 08:43] LABS: HCT 36.8 % (34.0-46.0); HGB 12.2 gm/dL (11.4-16.0); MCH 29.4 pg (25.0-35.0); MCHC 33.1 g/dL (31.0-37.0); MCV 88.9 fL (80.0-100.0); Platelet Count 202 k/uL (150-450); RBC 4.13 m/uL (3.80-5.40); RDW 14.7 % (11.5-15.5); WBC 8.3 k/uL (3.8-10.6)
[2022-11-04 09:05] LABS: ALT 21 U/L (4-34); AST 26 U/L (14-36); African American GFR (CKD) >90 (>60 ml/min/1.73 sqM); Albumin 2.6 g/dL (3.5-5.0); Alkaline Phosphatase 55 U/L (38-126); Anion Gap 0 mmol/L; Blood Urea Nitrogen 9 mg/dL (7-17); Calcium 9.3 mg/dL (8.4-10.2); Carbon Dioxide 31 mmol/L (22-30); Chloride 103 mmol/L (98-107); Glucose 100 mg/dL (74-99); Magnesium 1.7 mg/dL (1.6-2.3); Non-African American GFR(CKD) 82 (>60 ml/min/1.73 sqM); Potassium 4.6 mmol/L (3.5-5.1); Sodium 134 mmol/L (137-145); Total Bilirubin 0.7 mg/dL (0.2-1.3); Total Protein 5.1 g/dL (6.3-8.2)
[2022-11-04 09:11] LABS: NT-Pro-B-Type Natriuretic Pept 2760 pg/mL
[2022-11-04] MEDS: IPRATROPIUM-ALBUTEROL 3 ML NEB INHALATION SCH ×4 (09:18→22:55)
[2022-11-04] MEDS: APIXABAN 5 MG TAB PO SCH ×2 (09:41→21:14)
[2022-11-04] MEDS: METOPROLOL TARTRATE 50 MG TAB PO SCH (09:41)
[2022-11-04] MEDS: LOSARTAN 50 MG TAB PO SCH (09:41)
[2022-11-04] MEDS: allopurinoL 100 MG TAB PO SCH (09:41)
[2022-11-04] MEDS ORDERED: METOPROLOL TARTRATE 25 MG TAB PO STA (09:49)
--- NOTE | 2022-11-04 13:18 | P.PN ---
Subjective Progress Note Date: 11/04/22 CHIEF COMPLAINT: Closed loop small bowel obstruction HISTORY OF PRESENT ILLNESS: Patient is postop day #4 status post exploratory laparotomy and lysis of adhesions. Patient reports her pain is controlled. She's tolerating regular diet. Currently on the cardiac floor due to A. fib RVR. Heart rate improving. Patient followed by cardiology. Afebrile. WBC is 8.3 Hgb 12.2 platelets 202 PHYSICAL EXAM: VITAL SIGNS: Reviewed. GENERAL: Well-developed in no acute distress. ABDOMEN: Soft. Nondistended. Incisional dressing pulled back. Incision clean dry and intact. Dried blood noted on surgical dressing NEUROLOGIC: Alert and oriented. Cranial nerves II through XII grossly intact. ASSESSMENT: 1. Closed loop small bowel obstruction status post exploratory laparotomy and lysis of adhesions PLAN: -Continue regular diet -Continue pain management -Cardiology management of A. fib. Patient on Eliquis -Patient can shower -Cover abdominal incision with ABD after shower -Encourage patient to ambulate -Encourage patient to use incentive spirometer -Patient stable for discharge from surgical standpoint once cleared by cardiology and medicine service Physician Junior Loan Processor note has been reviewed by physician. Signing provider agrees with the documented findings, assessment, and plan of care. Objective - Vital Signs Vital signs: Vital Signs Temp 98.5 F 11/04/22 08:00 Pulse 88 11/04/22 12:48 Resp 17 11/04/22 08:00 BP 109/56 11/04/22 08:00 Pulse Ox 90 L 11/04/22 09:19 FiO2 21 11/03/22 15:41 Intake & Output 11/03/22 11/04/22 11/04/22 18:59 06:59 18:59 Intake Total 120 Balance 120 Intake: Oral 120 Other: Voiding Method Toilet Toilet Bedside Commode # Voids 1 - Labs CBC & Chem 7: 11/04/22 08:25 11/04/22 08:25 Labs: Abnormal Lab Results - Last 24 Hours (Table) 11/04/22 Range/Units 08:25 Sodium 134 L (137-145) mmol/L Carbon Dioxide 31 H (22-30) mmol/L Glucose 100 H (74-99) mg/dL Total Protein 5.1 L (6.3-8.2) g/dL Albumin 2.6 L (3.5-5.0) g/dL
[2022-11-04] MEDS: BENZONATATE 100 MG CAP PO SCH ×2 (14:18→20:41)
[2022-11-04] MEDS ORDERED: MAGNESIUM OXIDE 400 MG TAB PO STA (14:38)
--- NOTE | 2022-11-04 14:43 | P.PN ---
Subjective Progress Note Date: 11/04/22 Hospital course: Patient is a pleasant 82-year-old female with a past medical history of CAD, cardiomyopathy, hypertension, hyperlipidemia, paroxysmal atrial fibrillation on anticoagulation with Eliquis, pulmonary fibrosis, and obstructive sleep apnea CPAP dependent nightly. She presented to the emergency department on 10/31/22 with a chief complaint of lower abdominal pain accompanied by nausea and vomiting. She underwent full evaluation in the emergency department. CBC, coagulation profile, and BMP were completed showing no significant abnormalities. Magnesium was low at 1.5. Influenza A, influenza B, Covid, and RSV negative. Chest x-ray revealed scattered interstitial changes throughout the lungs bilaterally. EKG showing normal sinus rhythm with occasional PACs at [address] abdomen and pelvis with contrast was completed showing dilated bowel loops in the abdomen with diffuse mesenteric edema concerning for small bowel obstruction with small amount of ascites and postcholecystectomy and intrahepatic and extrahepatic bile duct dilation, and a 3.3 cm infrarenal abdominal aortic aneurysm. Patient was admitted under General surgery team for small bowel obstruction and taken for exploratory laparotomy with lysis of adhesions by Dr. Michel and we were consulted during postoperative timeframe for medical management throughout hospitalization.On the morning of 11/03/22, received a page at 8 AM the patientas a new onset atrial fibrillation with RVR. Patient has a known history of paroxysmal atrial fibrillation but this morning when into RVR and has been sustaining with a ventricular rate between 150s and 170s. Order placed for stat EKG, Cardizem bolus 10 mg IVP 1 dose followed by Cardizem infusion and transferred to stepdown unit. EKG reviewed showing atrial fibrillation with RVR to sustain ventricular rate of 155 bpm. Order placed for echocardiogram as most recent echocardiogram available for personal comparison was completed on 04/17/18 showing an EF of 55-60% with moderate left ventricular hypertrophy and moderate mitral regurgitation. Physical exam: Patient seen and fully evaluated at bedside this morning. She is postoperative day 4 and appears to be doing well. Patient remains in atrial fibrillation with ventricular rate fluctuating between 90s and 110s. Patient reporting increased cough and congestion. Vital signs reviewed and stable. General: Nontoxic, no distress and appears stated age. Derm: Skin warm and dry, normal coloration for ethnicity. Head: Atraumatic, normocephalic and symmetric. Eyes: EOMs intact, no lid lag, and anicteric sclera Mouth: no lip lesions, mucus membranes moist Cardiovascular: Irregularly irregular, systolic murmur, positive posterior tibial pulses bilaterally, and cap refill < 2 seconds. Lungs: Respirations even, regular, and unlabored on room air. Lungs bibasilar crackles, no wheezes, rhonchi or rales. No accessory muscle usage. Abdominal: soft distended, no guarding, no appreciable organomegaly. Bowel sounds present. Abdominal dressing clean dry and intact with small area of bleed through/shadowing to center of dressing. Ext: ROM intact. No gross muscle atrophy, no edema, no contractures Neuro: Speech clear, face symmetrical and CN II-XII grossly intact with no noted focal neuro deficits Psych: Alert and oriented to person, place, time, and situation. Appropriate and pleasant affect. Assessment and Plan of Care: Atrial fibrillation with RVR Acute exacerbation of chronic diastolic heart failure, likely exacerbated secondary to RVR -Cardiology following stated no need for repeat echocardiogram previous EF of 55-60%. -Continue anticoagulation with Eliquis 5 mg twice daily -TSH was normal findings at 1.930. -Patient initially given Cardizem bolus followed by Cardizem infusion for rate control. Metoprolol has been titrated up to 75 mg twice daily in attempts to achieve optimal heart rate control. -Chest x-ray was completed showing cardiomegaly and mild pulmonary vascular congestion consistent with congestive heart failure. -ProBNP elevated at 2760. -Order placed for Lasix 40 mg IVP twice daily -Order placed for strict I's and O's and daily weights Small bowel obstruction -Patient admitted under Gen. surgery team and underwent repair of small bowel obstruction with exploratory laparotomy with lysis of adhesions by Dr. Michel on 10/31/22. -Continue symptomatic care and pain management. -Encourage incentive spirometry 10-15 times hourly while awake. -Patient was tolerating full liquid diet and general surgery advancing to regular diet at this time. Hypomagnesemia -Magnesium slightly low 1.7 orders placed for Mag-Ox 400 mg by mouth 1 dose. Acute postoperative blood loss anemia, resolved Coronary artery disease Cardiomyopathy Hypertension Hyperlipidemia -Continue home medication regimen with atorvastatin 10 mg nightly, losartan 50 mg daily, and metoprolol 25 mg twice daily. -Recommend continuing Telemetry monitoring during postoperative period. Pulmonary fibrosis Obstructive sleep apnea CPAP dependent -Continue scheduled DuoNeb's 4 times daily and as needed for shortness of breath and/or wheezing. -Patient to be provided with oxygenation as needed . -Encourage use of incentive spirometry 10-15 times hourly while awake. -Continue CPAP nightly Abdominal aortic aneurysm -Incidental findings on CT shows a 3.3 cm infrarenal abdominal aortic aneurysm, recommend outpatient follow-up with vascular surgery. Data reviewed: Vital signs reviewed and stable. Blood pressure 109/56, heart rate 98, respiratory rate 17, temp 98.5F, and SpO2 of 97% on room air Morning labs reviewed. CBC showing resolution of acute postoperative blood loss anemia, hemoglobin 12.2. BMP showing mild hyponatremia of 134 and hypercarbia with bicarb of 31. Magnesium slightly low 1.7. Thank you for allowing us to participate in the care of this pleasant patient. Do not hesitate to contact us with questions. Someone can be reached from the [facility] hospitalist group all hours of the day at [phone] or via [employer]. Patient was seen independently by Nurse Pracitioner. This document was prepared using Jet dictation software. Please allow for errors in forging dies final finisher, while rare they do occur. Jose Cruz Flanagan NP rendered care for this patient independently, reviewed the findings and plan as documented in the note above. I did not physically speak with or examine the patient on this date. Objective - Vital Signs Vital signs: Vital Signs Temp 98.2 F 11/04/22 04:00 Pulse 90 11/04/22 04:00 Resp 18 11/04/22 04:00 BP 137/77 11/04/22 04:00 Pulse Ox 94 L 11/04/22 04:00 FiO2 21 11/03/22 15:41 Intake & Output 11/03/22 11/04/22 11/04/22 18:59 06:59 18:59 Intake Total 120 Balance 120 Intake: Oral 120 Other: Voiding Method Toilet Toilet # Voids 1 - Labs CBC & Chem 7: 11/04/22 08:25 11/04/22 08:25 Labs: Abnormal Lab Results - Last 24 Hours (Table) 11/03/22 11/03/22 Range/Units 06:02 06:02 RBC 4.08 L (4.10-5.20) X 10*6/uL Hgb 11.5 L (12.0-15.0) d/dL Hct 35.3 L (37.2-46.3) % RDW 14.8 H (11.5-14.5) % MPV 9.4 L (9.5-12.2) FL Total Protein 5.2 L (6.2-8.2) d/dL Albumin 3.2 L (3.8-4.9) d/dL
--- NOTE | 2022-11-04 14:45 | CDI ---
Documentation Clarification Form Date: 11/04/2022 02:32:47 PM From: Radha Burns RN CCDS Phone: [phone] Admit Date: 10/31/2022 04:11:00 PM Patient Name: Lizzie East Visit Number: [id number] Discharge Date: ATTENTION: The Clinical Documentation Specialists (CDI) and [facility] Coding Staff appreciate your assistance in clarifying documentation. Please respond to the clarification below the line at the bottom and electronically sign. The CDI & [facility] Coding staff will review the response and follow-up if needed. Please note: Queries are made part of the Legal Health Record. If you have any questions, please contact the author of this message via ITS. Dr. Amanda Arreaga, DO Your patient has the documented diagnosis of unspecified CHF 10/31, Medicine consult. Additional information regarding the type, acuity of CHF is requested. History/Risk Factors: 82-year-old female presented to the hospital with abdominal pain. Medical History: Atrial Fibrillation, Chest pain / Angina, Heart Failure and HTN 10/31, Medicine consult. Clinical Indicators: VS/Pulse OX: 11/04 BP 105/65; HR 72; Temp 98.4F Oral; RR 17; SpO2 94% room air BNP: 11/04 2760 Echocardiogram Results: 04/28 EF 55-60% Moderate mitral regurgitation, Mild tricuspid regurgitation. Chest X Ray: 11/03 Cardiomegaly and mild pulmonary vascular congestion. Treatment: 11/04 Lasix 40mg IV Q12H; 11/04 Lopressor 75mg PO BID In your professional opinion, can you please clarify the acuity and type of CHF if known? [ X] Acute on Chronic Diastolic Heart Failure (preserved EF) [ ] Other, please specify [ ] Unable to determine (Template Last Revised: March 2020) MTDD
--- NOTE | 2022-11-04 15:04 | P.PN ---
Subjective Progress Note Date: 11/04/22 History of present illness: This is an 82-year-old female patient of Dr. Benitez with PMH of paroxysmal atr ial fibrillation, PVD, hyperlipidema, HTN, MVR, obstructive sleep apnea. We have been asked to evaluate for Afib w RVR. Patient presented to the hospital on 10/31 with abdominal pain found to have a small bowel obstruction and underwent exploratory laparotomy with lysis of adhesions on 10/31. Patient states she has not had a bowel movement since that time. She denies having any chest pain, shortness of breath, palpitations. Patient was found to be in A. fib with RVR this morning 140s and has been ordered for transfer to the cardiac stepdown unit and Cardizem drip to be started. Patient did receive her normal dose of Lopressor 25 mg this morning. She has also been resumed on eliquis. EKG atrial fibrillation at 150 bpm WBC 8.4, hemoglobin 11.5, platelet count 185. CMP unremarkable. Home cardiac medications: Eliquis 5 mg twice daily, Lipitor 10 mg at bedtime, losartan 50 mg daily, Lopressor 25 mg twice daily, Hytrin 5 mg at bedtime Echocardiogram performed 06/2022 revealed EF 55-60%, moderate left ventricular hypertrophy, moderate mitral regurgitation, mild tricuspid regurgitation. 11/04 Patient is seen today in follow-up. She remains in atrial fibrillation heart rate remains elevated. We'll plan to increase Lopressor 75 mg twice daily and also add amiodarone 400 mg daily with plan to continue that for 1 month during the postop period patient denies any chest pain. No palpitations. No shortness of breath. She has remained on a Cardizem drip which we'll plan to discontinue tomorrow after the new medication and doses have been started today. Physical examination: Gen: This is an 82-year-old female. She is resting bed appears to be comfortable and in no acute distress.VS: reviewed HEENT: Head is atraumatic, normocephalic. Pupils equal, round. Sclerae is a nicteric. NECK: Supple. No JVD. . LUNGS: Clear to auscultation. No wheezes or rhonchi. No intercostal retractions. HEART: Irregular rate and rhythm. 2/6 systolic murmur. EXTREMITIES: No pedal edema. No calf tenderness. NEUROLOGICAL: Patient is awake, alert and oriented x3. Assessment: Small bowel obstruction status post exploratory laparotomy and lysis of adhesions A. fib with RVR Paroxysmal atrial fibrillation Peripheral vascular disease Hyperlipidemia Hypertension Mitral valve regurgitation Obstructive sleep apnea Plan: Continue Cardizem drip and plan to discontinue tomorrow heart rate is controlled or converted Increase Lopressor to 75 mg twice daily given additional 25 now Add amiodarone 400 mg daily for one month and then this will be discontinued. No need to obtain echocardiogram as this was done in May Continue other cardiac medications including eliquis Further recommendations to follow based upon clinical course Nurse practitioner note has been reviewed, I agree with documented findings and plan of care. Patient was seen and examined. Objective - Vital Signs Vital signs: Vital Signs Temp 98.5 F 11/04/22 08:00 Pulse 100 11/04/22 09:28 Resp 17 11/04/22 08:00 BP 109/56 11/04/22 08:00 Pulse Ox 90 L 11/04/22 09:19 FiO2 21 11/03/22 15:41 Intake & Output 11/03/22 11/04/22 11/04/22 18:59 06:59 18:59 Intake Total 120 Balance 120 Intake: Oral 120 Other: Voiding Method Toilet Toilet # Voids 1 - Labs CBC & Chem 7: 11/04/22 08:25 11/04/22 08:25 Labs: Abnormal Lab Results - Last 24 Hours (Table) 11/03/22 11/04/22 Range/Units 06:02 08:25 Sodium 134 L (137-145) mmol/L Carbon Dioxide 31 H (22-30) mmol/L Glucose 100 H (74-99) mg/dL Total Protein 5.2 L 5.1 L (6.2-8.2) d/dL Albumin 3.2 L 2.6 L (3.8-4.9) d/dL
[2022-11-04] MEDS: DILTIAZEM 125 MG in SODIUM CHLORIDE 0.9% 100 ML IV SCH (17:34)
[2022-11-04] MEDS: ATORVASTATIN 10 MG TAB PO SCH (20:40)
[2022-11-04] MEDS: METOPROLOL TARTRATE 25 MG TAB PO SCH (20:40)
[2022-11-04] MEDS: DOXAZOSIN 4 MG TAB PO SCH (20:40)
[2022-11-04] MEDS: FUROSEMIDE 10 MG/ML 4 ML VIAL IV SCH (20:41)
[2022-11-04] MEDS: HYDROmorphone 0.5 MG/0.5 ML SYRINGE IVP PRN (20:41)
[2022-11-05] MEDS: LOSARTAN 50 MG TAB PO SCH ×2 (07:53→15:11)
[2022-11-05] MEDS: APIXABAN 5 MG TAB PO SCH ×2 (07:54→19:58)
[2022-11-05] MEDS: allopurinoL 100 MG TAB PO SCH (07:54)
[2022-11-05] MEDS: BENZONATATE 100 MG CAP PO SCH ×3 (07:54→19:58)
[2022-11-05] MEDS: AMIODARONE 200 MG TAB PO SCH (07:54)
[2022-11-05] MEDS: METOPROLOL TARTRATE 25 MG TAB PO SCH ×3 (07:54→19:57)
[2022-11-05] MEDS: FUROSEMIDE 10 MG/ML 4 ML VIAL IV SCH (07:55)
[2022-11-05] MEDS: IPRATROPIUM-ALBUTEROL 3 ML NEB INHALATION SCH ×4 (08:41→21:14)
[2022-11-05 08:55] LABS: HGB 12.3 gm/dL (11.4-16.0); Hypochromasia Slight; MCH 29.4 pg (25.0-35.0); MCHC 32.5 g/dL (31.0-37.0); MCV 90.5 fL (80.0-100.0); Mean Platelet Volume 7.5; Platelet Count 240 k/uL (150-450); RDW 15.1 % (11.5-15.5); WBC 10.7 k/uL (3.8-10.6)
[2022-11-05 09:03] LABS: ALT 22 U/L (4-34); AST 21 U/L (14-36); African American GFR (CKD) 47 (>60 ml/min/1.73 sqM); Albumin 2.9 g/dL (3.5-5.0); Alkaline Phosphatase 55 U/L (38-126); Anion Gap 5 mmol/L; Blood Urea Nitrogen 16 mg/dL (7-17); Calcium 9.5 mg/dL (8.4-10.2); Carbon Dioxide 35 mmol/L (22-30); Chloride 94 mmol/L (98-107); Glucose 97 mg/dL (74-99); Magnesium 1.6 mg/dL (1.6-2.3); Non-African American GFR(CKD) 41 (>60 ml/min/1.73 sqM); Potassium 3.8 mmol/L (3.5-5.1); Sodium 134 mmol/L (137-145); Total Bilirubin 0.7 mg/dL (0.2-1.3); Total Protein 5.5 g/dL (6.3-8.2)
--- NOTE | 2022-11-05 12:19 | P.PN ---
Subjective Progress Note Date: 11/05/22 CHIEF COMPLAINT: Closed loop small bowel obstruction HISTORY OF PRESENT ILLNESS: Patient is postop day #5 status post exploratory laparotomy and lysis of adhesions. Patient reports she had increased abdominal pain during the night and required a dose of IV Dilaudid which then made her nauseated. She reports that she had been coughing and that caused increased abdominal pain. She has been having flatus. No bowel movement. Patient was hypotensive this morning. Cardiology has made adjustments to medications and monitoring her. Patient also has been tachycardic. Afebrile. WBC is 10.7 HgB 12.3 platelets 240 creatinine 1.23 Lasix discontinued this morning PHYSICAL EXAM: VITAL SIGNS: Reviewed. GENERAL: Well-developed in no acute distress. ABDOMEN: Soft. Nondistended. Incision clean dry and intact NEUROLOGIC: Alert and oriented. Cranial nerves II through XII grossly intact. ASSESSMENT: 1. Closed loop small bowel obstruction status post exploratory laparotomy and lysis of adhesions PLAN: -Continue regular diet -Continue pain management -Cardiology management of A. fib and hypotension -Continue Tylenol as needed for pain -Encouraged patient to ambulate. Consult physical therapy -Encourage patient to use incentive spirometer -Patient stable for discharge from surgical standpoint once cleared by cardiology and medicine service Physician Account Executive Sales Representative note has been reviewed by physician. Signing provider agrees with the documented findings, assessment, and plan of care. Objective - Vital Signs Vital signs: Vital Signs Temp 98.3 F 11/05/22 12:02 Pulse 116 H 11/05/22 12:02 Resp 18 11/05/22 12:02 BP 117/66 11/05/22 12:02 Pulse Ox 94 L 11/05/22 12:02 FiO2 21 11/03/22 15:41 Intake & Output 11/04/22 11/05/22 11/05/22 18:59 06:59 18:59 Intake Total 965 180 Balance 965 180 Weight 65.2 kg Intake: Intake, IV Titration 125 Amount Diltiazem 125 mg In 125 Sodium Chloride 0.9% 100 ml @ Per Protocol IV .Q0M [facility] Rx#:[id number] Oral 840 180 Other: Voiding Method Bedside Commode Bedside Commode Bedside Commode # Voids 1 - Labs CBC & Chem 7: 11/05/22 08:12 11/05/22 08:12 Labs: Abnormal Lab Results - Last 24 Hours (Table) 11/05/22 11/05/22 Range/Units 08:12 08:12 WBC 10.7 H (3.8-10.6) k/uL Sodium 134 L (137-145) mmol/L Chloride 94 L (98-107) mmol/L Carbon Dioxide 35 H (22-30) mmol/L Creatinine 1.23 H (0.52-1.04) mg/dL Total Protein 5.5 L (6.3-8.2) g/dL Albumin 2.9 L (3.5-5.0) g/dL
--- NOTE | 2022-11-05 14:20 | P.PN ---
Subjective Progress Note Date: 11/05/22 History of present illness: This is an 82-year-old female patient of Dr. Benitez with PMH of paroxysmal atr ial fibrillation, PVD, hyperlipidema, HTN, MVR, obstructive sleep apnea. We have been asked to evaluate for Afib w RVR. Patient presented to the hospital on 10/31 with abdominal pain found to have a small bowel obstruction and underwent exploratory laparotomy with lysis of adhesions on 10/31. Patient states she has not had a bowel movement since that time. She denies having any chest pain, shortness of breath, palpitations. Patient was found to be in A. fib with RVR this morning 140s and has been ordered for transfer to the cardiac stepdown unit and Cardizem drip to be started. Patient did receive her normal dose of Lopressor 25 mg this morning. She has also been resumed on eliquis. EKG atrial fibrillation at 150 bpm WBC 8.4, hemoglobin 11.5, platelet count 185. CMP unremarkable. Home cardiac medications: Eliquis 5 mg twice daily, Lipitor 10 mg at bedtime, losartan 50 mg daily, Lopressor 25 mg twice daily, Hytrin 5 mg at bedtime Echocardiogram performed 06/2022 revealed EF 55-60%, moderate left ventricular hypertrophy, moderate mitral regurgitation, mild tricuspid regurgitation. 11/04 Patient is seen today in follow-up. She remains in atrial fibrillation heart rate remains elevated. We'll plan to increase Lopressor 75 mg twice daily and also add amiodarone 400 mg daily with plan to continue that for 1 month during the postop period patient denies any chest pain. No palpitations. No shortness of breath. She has remained on a Cardizem drip which we'll plan to discontinue tomorrow after the new medication and doses have been started today. 11/05 This morning, blood pressure is 84/47, heart rate is still running 100-1 16. Patient denies having any shortness of breath, no lower extremity edema, no orthopnea. She states she had some nausea last night from her pain medications which is resolved. Yesterday, patient was started on IV Lasix by attending. Discussed with patient need to adjust medications including some long-term home medications such as Hytrin and nortriptyline in order to control her heart rate and maintain adequate blood pressure. Patient is in agreement. Physical examination: Gen: This is an 82-year-old female. She is resting bed appears to be comfortable and in no acute distress. VS: reviewed HEENT: Head is atraumatic, normocephalic. Pupils equal, round. Sclerae is anicteric. NECK: Supple. No JVD. . LUNGS: Clear to auscultation. No wheezes or rhonchi. No intercostal retractions. HEART: Irregular rate and rhythm. 2/6 systolic murmur. EXTREMITIES: No pedal edema. No calf tenderness. NEUROLOGICAL: Patient is awake, alert and oriented x3. Assessment: Small bowel obstruction status post exploratory laparotomy and lysis of adhesions A. fib with RVR Paroxysmal atrial fibrillation Peripheral vascular disease Hyperlipidemia Hypertension Mitral valve regurgitation Obstructive sleep apnea Hypotension from medications Plan: Discontinue Cardizem drip Discontinue IV Lasix DC losartan and Cardura. At the time of discharge, patient may be resumed back on Cardura at a lower dose. Decrease nortriptyline to 10 mg at bedtime. Continue amiodarone 400 mg daily for one month and then this will be discontinued. No need to obtain echocardiogram as this was done in May Continue other cardiac medications including eliquBody Central Monitor blood pressure and heart rate closely Further recommendations to follow based upon clinical course Nurse practitioner note has been reviewed, I agree with documented findings and plan of care. Patient was seen and examined. Objective - Vital Signs Vital signs: Vital Signs Temp 98.3 F 11/05/22 08:07 Pulse 99 11/05/22 08:07 Resp 18 11/05/22 08:07 BP 84/47 11/05/22 08:07 Pulse Ox 92 L 11/05/22 08:41 FiO2 21 11/03/22 15:41 Intake & Output 11/04/22 11/05/22 11/05/22 18:59 06:59 18:59 Intake Total 965 Balance 965 Weight 65.2 kg Intake: Intake, IV Titration 125 Amount Diltiazem 125 mg In 125 Sodium Chloride 0.9% 100 ml @ Per Protocol IV .Q0M [facility] Rx#:[id number] Oral 840 Other: Voiding Method Bedside Commode Bedside Commode Bedside Commode - Labs CBC & Chem 7: 11/05/22 08:12 11/05/22 08:12 Labs: Abnormal Lab Results - Last 24 Hours (Table) 11/04/22 11/05/22 Range/Units 08:25 08:12 WBC 10.7 H (3.8-10.6) k/uL Sodium 134 L (137-145) mmol/L Carbon Dioxide 31 H (22-30) mmol/L Glucose 100 H (74-99) mg/dL Total Protein 5.1 L (6.3-8.2) g/dL Albumin 2.6 L (3.5-5.0) g/dL
--- NOTE | 2022-11-05 15:22 | P.PN ---
Subjective Progress Note Date: 11/05/22 Hospital Course: Patient is a pleasant 82-year-old female with a past medical history of CAD, c ardiomyopathy, hypertension, hyperlipidemia, paroxysmal atrial fibrillation on anticoagulation with Eliquis, pulmonary fibrosis, and obstructive sleep apnea CPAP dependent nightly. She presented to the emergency department on 10/31/22 with a chief complaint of lower abdominal pain accompanied by nausea and vomiting. She underwent full evaluation in the emergency department. CBC, coagulation profile, and BMP were completed showing no significant abnormalities. Magnesium was low at 1.5. Influenza A, influenza B, Covid, and RSV negative. Chest x-ray revealed scattered interstitial changes throughout the lungs bilaterally. EKG showing normal sinus rhythm with occasional PACs at [address] abdomen and pelvis with contrast was completed showing dilated bowel loops in the abdomen with diffuse mesenteric edema concerning for small bowel obstruction with small amount of ascites and postcholecystectomy and intrahepatic and extrahepatic bile duct dilation, and a 3.3 cm infrarenal abdominal aortic aneurysm. Patient was admitted under General surgery team for small bowel obstruction and taken for exploratory laparotomy with lysis of adhesions by Dr. Michel and we were consulted during postoperative timeframe for medical management throughout hospitalization.On the morning of 11/03/22, received a page at 8 AM the patientas a new onset atrial fibrillation with RVR. Patient has a known history of paroxysmal atrial fibrillation but this morning when into RVR and has been sustaining with a ventricular rate between 150s and 170s. Order placed for stat EKG, Cardizem bolus 10 mg IVP 1 dose followed by Cardizem infusion and transferred to stepdown unit. EKG reviewed showing atrial fibrillation with RVR to sustain ventricular rate of 155 bpm. Physical exam: Patient seen and fully evaluated at bedside this morning. She is postoperative day 5 and appears to be doing well. Patient remains in atrial fibrillation with ventricular rate fluctuating between 90s and 110s. Patient states she has had increased cough causing increased abdominal pain. Vital signs reviewed and stable. General: Nontoxic, no distress and appears stated age. Derm: Skin warm and dry, normal coloration for ethnicity. Head: Atraumatic, normocephalic and symmetric. Eyes: EOMs intact, no lid lag, and anicteric sclera Mouth: no lip lesions, mucus membranes moist Cardiovascular: Irregularly irregular, systolic murmur, positive posterior tibial pulses bilaterally, and cap refill < 2 seconds. Lungs: Respirations even, regular, and unlabored on room air. Lungs bibasilar crackles, no wheezes, rhonchi or rales. No accessory muscle usage. Abdominal: soft distended, no guarding, no appreciable organomegaly. Bowel sounds present. Abdominal dressing clean dry and intact with no visible bleeding and abdominal binder in place. Ext: ROM intact. No gross muscle atrophy, no edema, no contractures Neuro: Speech clear, face symmetrical and CN II-XII grossly intact with no noted focal neuro deficits Psych: Alert and oriented to person, place, time, and situation. Appropriate and pleasant affect. Assessment and Plan of Care: Atrial fibrillation with RVR Chronic diastolic heart failure -Cardiology following stated no need for repeat echocardiogram previous EF of 55-60%. -Continue anticoagulation with Eliquis 5 mg twice daily -TSH was normal findings at 1.930. -Patient initially given Cardizem bolus followed by Cardizem infusion for rate control. Cardizem has been discontinued by Cardiology at this time. -Metoprolol has been titrated up to 75 mg twice daily in attempts to achieve optimal heart rate control. And patient has been started on amiodarone 400 mg daily -Lasix discontinued this morning -Chest x-ray was completed 11/03/22 showing cardiomegaly and mild pulmonary vascular congestion consistent with congestive heart failure. -ProBNP elevated at 2760. Acute kidney injury - IV Lasix was discontinued. We will repeat BMP with a.m. labs. Small bowel obstruction -Patient admitted under Gen. surgery team and underwent repair of small bowel obstruction with exploratory laparotomy with lysis of adhesions by Dr. Michel on 10/31/22. -Continue symptomatic care and pain management. -Encourage incentive spirometry 10-15 times hourly while awake. -Patient is tolerating a regular diet at this time. Hypomagnesemia -Magnesium slightly low 1.7 orders placed for Mag-Ox 400 mg by mouth 1 dose. Acute postoperative blood loss anemia, resolved Coronary artery disease Cardiomyopathy Hypertension Hyperlipidemia -Continue home medication regimen with atorvastatin 10 mg nightly, losartan 50 mg daily, and metoprolol 25 mg twice daily. -Recommend continuing Telemetry monitoring during postoperative period. Pulmonary fibrosis Obstructive sleep apnea CPAP dependent -Continue scheduled DuoNeb's 4 times daily and as needed for shortness of breath and/or wheezing. -Patient to be provided with oxygenation as needed . -Encourage use of incentive spirometry 10-15 times hourly while awake. -Continue CPAP nightly Abdominal aortic aneurysm -Incidental findings on CT shows a 3.3 cm infrarenal abdominal aortic aneurysm, recommend outpatient follow-up with vascular surgery. Data reviewed: -Vital signs reviewed and stable. Blood pressure 117/66, heart rate 83, respiratory rate 18, temp 98.3F, and SpO2 of 94% on room air -Morning labs reviewed. CBC showing resolution of acute postoperative blood loss anemia, hemoglobin 12.3. BMP reveals TRINIDAD with elevated creatinine of 1.23, baseline is 0.68. BMP also shows mild hyponatremia of 134, hypochloremia of 94, and hypercarbia with bicarb of 35. Magnesium slightly low 1.6.. Thank you for allowing us to participate in the care of this pleasant patient. Do not hesitate to contact us with questions. Someone can be reached from the [facility] hospitalist group all hours of the day at [phone] or via [employer]. Patient was seen independently by Nurse Pracitioner. This document was prepared using [employer] dictation software. Please allow for errors in wrestling coach, while rare they do occur. Jose Cruz Flanagan NP rendered care for this patient independently, reviewed the findings and plan as documented in the note above. I did not physically speak with or examine the patient on this date. Objective - Vital Signs Vital signs: Vital Signs Temp 98.3 F 11/05/22 08:07 Pulse 99 11/05/22 08:07 Resp 18 11/05/22 08:07 BP 84/47 11/05/22 08:07 Pulse Ox 92 L 11/05/22 08:07 FiO2 21 11/03/22 15:41 Intake & Output 11/04/22 11/05/22 11/05/22 18:59 06:59 18:59 Intake Total 965 Balance 965 Weight 65.2 kg Intake: Intake, IV Titration 125 Amount Diltiazem 125 mg In 125 Sodium Chloride 0.9% 100 ml @ Per Protocol IV .Q0M [facility] Rx#:[id number] Oral 840 Other: Voiding Method Bedside Commode Bedside Commode Bedside Commode - Labs CBC & Chem 7: 11/08/22 06:57 11/08/22 06:57 Labs: Abnormal Lab Results - Last 24 Hours (Table) 11/04/22 Range/Units 08:25 Sodium 134 L (137-145) mmol/L Carbon Dioxide 31 H (22-30) mmol/L Glucose 100 H (74-99) mg/dL Total Protein 5.1 L (6.3-8.2) g/dL Albumin 2.6 L (3.5-5.0) g/dL
[2022-11-05] MEDS: HYDROmorphone 0.5 MG/0.5 ML SYRINGE IVP PRN (19:58)
[2022-11-05] MEDS: ATORVASTATIN 10 MG TAB PO SCH (19:58)
[2022-11-05] MEDS ORDERED: DOXAZOSIN 2 MG TAB PO SCH (21:00)
[2022-11-05] MEDS ORDERED: NORTRIPTYLINE 10 MG CAP PO SCH (21:00)
[2022-11-06] MEDS: IPRATROPIUM-ALBUTEROL 3 ML NEB INHALATION SCH ×4 (07:59→21:23)
[2022-11-06 08:40] LABS: Basophils % (A) 0 %; Eosinophils # (A) 0.6 k/uL (0-0.7); Eosinophils % (A) 6 %; HCT 40.9 % (34.0-46.0); HGB 12.9 gm/dL (11.4-16.0); Lymphocytes # (A) 2.3 k/uL (1.0-4.8); Lymphocytes % (A) 22 %; MCH 28.5 pg (25.0-35.0); MCHC 31.5 g/dL (31.0-37.0); MCV 90.5 fL (80.0-100.0); Mean Platelet Volume 7.2; Monocytes # (A) 0.7 k/uL (0-1.0); Monocytes % (A) 6 %; Neutrophils # (A) 6.9 k/uL (1.3-7.7); Neutrophils % (A) 65 %; Platelet Count 269 k/uL (150-450); RBC 4.52 m/uL (3.80-5.40); RDW 14.9 % (11.5-15.5); WBC 10.6 k/uL (3.8-10.6)
[2022-11-06] MEDS ORDERED: METOPROLOL TARTRATE 25 MG TAB PO STA (08:56)
[2022-11-06 09:04] LABS: African American GFR (CKD) 62 (>60 ml/min/1.73 sqM); Anion Gap 2 mmol/L; Blood Urea Nitrogen 15 mg/dL (7-17); Calcium 9.5 mg/dL (8.4-10.2); Carbon Dioxide 37 mmol/L (22-30); Chloride 99 mmol/L (98-107); Glucose 147 mg/dL (74-99); Non-African American GFR(CKD) 54 (>60 ml/min/1.73 sqM); Potassium 4.1 mmol/L (3.5-5.1); Sodium 138 mmol/L (137-145)
[2022-11-06] MEDS: allopurinoL 100 MG TAB PO SCH (09:43)
[2022-11-06] MEDS: APIXABAN 5 MG TAB PO SCH ×2 (09:43→20:27)
[2022-11-06] MEDS: BENZONATATE 100 MG CAP PO SCH ×3 (09:43→20:27)
[2022-11-06] MEDS: AMIODARONE 200 MG TAB PO SCH ×2 (09:47→10:13)
[2022-11-06] MEDS ORDERED: bisacodyL 10 MG SUPP RECTAL STA (10:12)
[2022-11-06] MEDS ORDERED: SODIUM CHLORIDE 0.9% 500 ML 500 ML IV ONE (11:01)
--- NOTE | 2022-11-06 11:14 | P.PN ---
Subjective Progress Note Date: 11/06/22 CHIEF COMPLAINT: Closed loop small bowel obstruction HISTORY OF PRESENT ILLNESS: Patient is postop day #6 status post exploratory laparotomy and lysis of adhesions. Patient complains that she still has not had a bowel movement since surgery. She is passing a lot of flatus. Denies any nausea or vomiting. Cardiology service is adjusting medications. She is hypotensive again this morning. She did receive a fluid bolus. WBC 10.6 HgB 12.9 and creatinine 0.98. Patient did ambulate in the hallway with physical PHYSICAL EXAM: VITAL SIGNS: Reviewed. GENERAL: Well-developed in no acute distress. ABDOMEN: Soft. Nondistended. Incision clean dry and intact NEUROLOGIC: Alert and oriented. Cranial nerves II through XII grossly intact. ASSESSMENT: 1. Closed loop small bowel obstruction status post exploratory laparotomy and lysis of adhesions PLAN: -Dulcolax suppository and Colace added for constipation -Continue regular diet -Continue pain management -Cardiology management of A. fib and hypotension -Continue Tylenol as needed for pain -Encouraged patient to ambulate -Encourage patient to use incentive spirometer -Patient stable for discharge from surgical standpoint once cleared by cardiology and medicine service Physician Heel Reducer note has been reviewed by physician. Signing provider agrees with the documented findings, assessment, and plan of care. Objective - Vital Signs Vital signs: Vital Signs Temp 98.2 F 11/06/22 04:00 Pulse 92 11/06/22 09:14 Resp 16 11/06/22 09:14 BP 82/50 11/06/22 09:37 Pulse Ox 93 L 11/06/22 09:14 FiO2 21 11/03/22 15:41 Intake & Output 11/05/22 11/06/22 11/06/22 18:59 06:59 18:59 Intake Total 360 180 Balance 360 180 Intake: Oral 360 180 Other: Voiding Method Toilet Toilet Bedside Commode Bedside Commode # Voids 1 1 - Labs CBC & Chem 7: 11/06/22 07:44 11/06/22 07:44 Labs: Abnormal Lab Results - Last 24 Hours (Table) 11/06/22 Range/Units 07:44 Carbon Dioxide 37 H (22-30) mmol/L Glucose 147 H (74-99) mg/dL
[2022-11-06] MEDS: DOCUSATE 100 MG CAP PO SCH ×2 (12:07→20:27)
[2022-11-06] MEDS: METOPROLOL TARTRATE 25 MG TAB PO SCH ×2 (12:07→20:27)
--- NOTE | 2022-11-06 12:29 | P.PN ---
Subjective Progress Note Date: 11/06/22 History of present illness: This is an 82-year-old female patient of Dr. Benitez with PMH of paroxysmal atr ial fibrillation, PVD, hyperlipidema, HTN, MVR, obstructive sleep apnea. We have been asked to evaluate for Afib w RVR. Patient presented to the hospital on 10/31 with abdominal pain found to have a small bowel obstruction and underwent exploratory laparotomy with lysis of adhesions on 10/31. Patient states she has not had a bowel movement since that time. She denies having any chest pain, shortness of breath, palpitations. Patient was found to be in A. fib with RVR this morning 140s and has been ordered for transfer to the cardiac stepdown unit and Cardizem drip to be started. Patient did receive her normal dose of Lopressor 25 mg this morning. She has also been resumed on eliquis. EKG atrial fibrillation at 150 bpm WBC 8.4, hemoglobin 11.5, platelet count 185. CMP unremarkable. Home cardiac medications: Eliquis 5 mg twice daily, Lipitor 10 mg at bedtime, losartan 50 mg daily, Lopressor 25 mg twice daily, Hytrin 5 mg at bedtime Echocardiogram performed 06/2022 revealed EF 55-60%, moderate left ventricular hypertrophy, moderate mitral regurgitation, mild tricuspid regurgitation. 11/04 Patient is seen today in follow-up. She remains in atrial fibrillation heart rate remains elevated. We'll plan to increase Lopressor 75 mg twice daily and also add amiodarone 400 mg daily with plan to continue that for 1 month during the postop period patient denies any chest pain. No palpitations. No shortness of breath. She has remained on a Cardizem drip which we'll plan to discontinue tomorrow after the new medication and doses have been started today. 11/05 This morning, blood pressure is 84/47, heart rate is still running 100-1 16. Patient denies having any shortness of breath, no lower extremity edema, no orthopnea. She states she had some nausea last night from her pain medications which is resolved. Yesterday, patient was started on IV Lasix by attending. Discussed with patient need to adjust medications including some long-term home medications such as Hytrin and nortriptyline in order to control her heart rate and maintain adequate blood pressure. Patient is in agreement. 11/06 The patient's blood pressure remains low at 82/50. She is on Lopressor 75 mg tw ice daily and amiodarone 400 mg daily. Patient did have some dizziness when she stood up and worked with physical therapy. Telemetry is atrial fibrillation 120 bpm. Physical examination: Gen: This is an 82-year-old female. She is resting bed appears to be comfortable and in no acute distress. VS: reviewed HEENT: Head is atraumatic, normocephalic. Pupils equal, round. Sclerae is ani cteric. NECK: Supple. No JVD. . LUNGS: Clear to auscultation. No wheezes or rhonchi. No intercostal retractions. HEART: Irregular rate and rhythm. 2/6 systolic murmur. EXTREMITIES: No pedal edema. No calf tenderness. NEUROLOGICAL: Patient is awake, alert and oriented x3. Assessment: Small bowel obstruction status post exploratory laparotomy and lysis of adhesions A. fib with RVR Paroxysmal atrial fibrillation Peripheral vascular disease Hyperlipidemia Hypertension Mitral valve regurgitation Obstructive sleep apnea Hypotension from medications Plan: Discontinue nortriptyline. Patient is taking this and is on antidepressant. Would recommend changing to a different antidepressant that would not cause hypotension Continue amiodarone 400 mg and increase frequency to twice daily for 7d and then daily for 21 days and then discontinue. No need to obtain echocardiogram as this was done in May Continue other cardiac medications including eliquis, atorvastatin Monitor blood pressure and heart rate closely Further recommendations to follow based upon clinical course Nurse practitioner note has been reviewed, I agree with documented findings and plan of care. Patient was seen and examined. Objective - Vital Signs Vital signs: Vital Signs Temp 98.2 F 11/06/22 04:00 Pulse 90 11/06/22 04:00 Resp 16 11/06/22 04:00 BP 117/73 11/06/22 04:00 Pulse Ox 94 L 11/06/22 04:00 FiO2 21 11/03/22 15:41 Intake & Output 11/05/22 11/06/22 11/06/22 18:59 06:59 18:59 Intake Total 360 Balance 360 Intake: Oral 360 Other: Voiding Method Toilet Toilet Bedside Commode Bedside Commode # Voids 1 1 - Labs CBC & Chem 7: 11/06/22 07:44 11/06/22 07:44 Labs: Abnormal Lab Results - Last 24 Hours (Table) 11/05/22 11/05/22 Range/Units 08:12 08:12 WBC 10.7 H (3.8-10.6) k/uL Sodium 134 L (137-145) mmol/L Chloride 94 L (98-107) mmol/L Carbon Dioxide 35 H (22-30) mmol/L Creatinine 1.23 H (0.52-1.04) mg/dL Total Protein 5.5 L (6.3-8.2) g/dL Albumin 2.9 L (3.5-5.0) g/dL
--- NOTE | 2022-11-06 13:47 | P.PN ---
Subjective Progress Note Date: 11/06/22 Hospital Course: Patient is a pleasant 82-year-old female with a past medical history of CAD, c ardiomyopathy, hypertension, hyperlipidemia, paroxysmal atrial fibrillation on anticoagulation with Eliquis, pulmonary fibrosis, and obstructive sleep apnea CPAP dependent nightly. She presented to the emergency department on 10/31/22 with a chief complaint of lower abdominal pain accompanied by nausea and vomiting. She underwent full evaluation in the emergency department. CBC, coagulation profile, and BMP were completed showing no significant abnormalities. Magnesium was low at 1.5. Influenza A, influenza B, Covid, and RSV negative. Chest x-ray revealed scattered interstitial changes throughout the lungs bilaterally. EKG showing normal sinus rhythm with occasional PACs at [address] abdomen and pelvis with contrast was completed showing dilated bowel loops in the abdomen with diffuse mesenteric edema concerning for small bowel obstruction with small amount of ascites and postcholecystectomy and intrahepatic and extrahepatic bile duct dilation, and a 3.3 cm infrarenal abdominal aortic aneurysm. Patient was admitted under General surgery team for small bowel obstruction and taken for exploratory laparotomy with lysis of adhesions by Dr. Michel and we were consulted during postoperative timeframe for medical management throughout hospitalization.On the morning of 11/03/22, received a page at 8 AM the patientas a new onset atrial fibrillation with RVR. Patient has a known history of paroxysmal atrial fibrillation but this morning when into RVR and has been sustaining with a ventricular rate between 150s and 170s. Order placed for stat EKG, Cardizem bolus 10 mg IVP 1 dose followed by Cardizem infusion and transferred to stepdown unit. EKG reviewed showing atrial fibrillation with RVR to sustain ventricular rate of 155 bpm. Physical exam: Patient seen and fully evaluated at bedside this morning. She is postoperative day 5 and appears to be doing well. Patient remains in atrial fibrillation with ventricular rate fluctuating between 90s and 110s. Patient states she has had increased cough causing increased abdominal pain. Gen: awake, alert HEENT: normocephalic, atraumatic, good hearing acuity, dry mucous membranes Resp: good air exchange, breathing comfortably with no accessory muscle use CVS: good distal perfusion x 4, GI: soft, NTTP, ND : no SPT, no CVAT, serrano catheter not present MSK: no pitting edema, no clubbing Neuro: non-focal, moving all extremities Psych: cooperative, euthymic mood Assessment and Plan of Care: Atrial fibrillation with RVR Chronic diastolic heart failure -Cardiology following stated no need for repeat echocardiogram previous EF of 55-60%. -Continue anticoagulation with Eliquis 5 mg twice daily -TSH was normal findings at 1.930. -Patient initially given Cardizem bolus followed by Cardizem infusion for rate control. Cardizem has been discontinued by Cardiology at this time. -Metoprolol has been titrated up to 75 mg twice daily in attempts to achieve optimal heart rate control. And patient has been started on amiodarone 400 mg daily -Lasix discontinued this morning -Chest x-ray was completed 11/03/22 showing cardiomegaly and mild pulmonary vascular congestion consistent with congestive heart failure. -ProBNP elevated at 2760. -Order placed for 500cc NS bolus for hypotension Acute kidney injury - IV Lasix was discontinued. We will repeat BMP with a.m. labs, today is improved Small bowel obstruction -Patient admitted under Gen. surgery team and underwent repair of small bowel obstruction with exploratory laparotomy with lysis of adhesions by Dr. Michel on 10/31/22. -Continue symptomatic care and pain management. -Encourage incentive spirometry 10-15 times hourly while awake. -Patient is tolerating a regular diet at this time. Hypomagnesemia -Magnesium slightly low 1.7 orders placed for Mag-Ox 400 mg by mouth 1 dose. Acute postoperative blood loss anemia, resolved Coronary artery disease Cardiomyopathy Hypertension Hyperlipidemia -Continue home medication regimen with atorvastatin 10 mg nightly, losartan 50 mg daily, and metoprolol 25 mg twice daily. -Recommend continuing Telemetry monitoring during postoperative period. Pulmonary fibrosis Obstructive sleep apnea CPAP dependent -Continue scheduled DuoNeb's 4 times daily and as needed for shortness of breath and/or wheezing. -Patient to be provided with oxygenation as needed . -Encourage use of incentive spirometry 10-15 times hourly while awake. -Continue CPAP nightly Abdominal aortic aneurysm -Incidental findings on CT shows a 3.3 cm infrarenal abdominal aortic aneurysm, recommend outpatient follow-up with vascular surgery. Data reviewed: -Vital signs reviewed and stable. Blood pressure 120/93, heart rate 89, respiratory rate 18, and SpO2 of 94% on room air -Morning labs reviewed. CBC showing resolution of acute postoperative blood loss anemia, hemoglobin 10.6. BMP reveals TRINIDAD with elevated creatinine of 0.98, baseline is 0.68. BMP also shows mild hyponatremia of 138, hypochloremia of 99, and hypercarbia with bicarb of 37. Magnesium slightly low 1.6. Thank you for allowing us to participate in the care of this pleasant patient. Do not hesitate to contact us with questions. Someone can be reached from the [facility] hospitalist group all hours of the day at [phone] or via [employer]. Patient was seen independently by Nurse Pracitioner. This document was prepared using [employer] dictation software. Please allow for errors in household appliance repairer, while rare they do occur. Objective - Vital Signs Vital signs: Vital Signs Temp 98.2 F 11/06/22 04:00 Pulse 89 11/06/22 12:00 Resp 18 11/06/22 12:00 BP 120/93 11/06/22 12:00 Pulse Ox 93 L 11/06/22 12:00 FiO2 21 11/03/22 15:41 Intake & Output 11/05/22 11/06/22 11/06/22 18:59 06:59 18:59 Intake Total 360 180 Balance 360 180 Intake: Oral 360 180 Other: Voiding Method Toilet Toilet Bedside Commode Bedside Commode # Voids 1 1 - Labs CBC & Chem 7: 11/06/22 07:44 11/06/22 07:44 Labs: Abnormal Lab Results - Last 24 Hours (Table) 11/06/22 Range/Units 07:44 Carbon Dioxide 37 H (22-30) mmol/L Glucose 147 H (74-99) mg/dL
[2022-11-06] MEDS: BENZOCAINE/MENTHOL LOZENG 1 EACH LOZENGE MUCOUS MEM PRN ×2 (14:34→23:19)
[2022-11-06] MEDS: ATORVASTATIN 10 MG TAB PO SCH (20:27)
[2022-11-06] MEDS ORDERED: METOPROLOL TARTRATE 50 MG TAB PO SCH (21:00)
[2022-11-07] MEDS: IPRATROPIUM-ALBUTEROL 3 ML NEB INHALATION SCH ×4 (07:40→20:52)
[2022-11-07] MEDS: allopurinoL 100 MG TAB PO SCH (09:28)
[2022-11-07] MEDS: APIXABAN 5 MG TAB PO SCH ×2 (09:28→20:12)
[2022-11-07] MEDS: BENZONATATE 100 MG CAP PO SCH ×3 (09:28→20:11)
[2022-11-07] MEDS: AMIODARONE 200 MG TAB PO SCH ×2 (09:28→20:12)
[2022-11-07] MEDS: DOCUSATE 100 MG CAP PO SCH ×2 (09:29→20:12)
[2022-11-07] MEDS: METOPROLOL TARTRATE 25 MG TAB PO SCH ×2 (09:29→20:12)
--- NOTE | 2022-11-07 10:58 | P.PN ---
Subjective Progress Note Date: 11/07/22 History of present illness: This is an 82-year-old female patient of Dr. Benitez with PMH of paroxysmal atr ial fibrillation, PVD, hyperlipidema, HTN, MVR, obstructive sleep apnea. We have been asked to evaluate for Afib w RVR. Patient presented to the hospital on 10/31 with abdominal pain found to have a small bowel obstruction and underwent exploratory laparotomy with lysis of adhesions on 10/31. Patient states she has not had a bowel movement since that time. She denies having any chest pain, shortness of breath, palpitations. Patient was found to be in A. fib with RVR this morning 140s and has been ordered for transfer to the cardiac stepdown unit and Cardizem drip to be started. Patient did receive her normal dose of Lopressor 25 mg this morning. She has also been resumed on eliquis. EKG atrial fibrillation at 150 bpm WBC 8.4, hemoglobin 11.5, platelet count 185. CMP unremarkable. Home cardiac medications: Eliquis 5 mg twice daily, Lipitor 10 mg at bedtime, losartan 50 mg daily, Lopressor 25 mg twice daily, Hytrin 5 mg at bedtime Echocardiogram performed 06/2022 revealed EF 55-60%, moderate left ventricular hypertrophy, moderate mitral regurgitation, mild tricuspid regurgitation. 11/04 Patient is seen today in follow-up. She remains in atrial fibrillation heart rate remains elevated. We'll plan to increase Lopressor 75 mg twice daily and also add amiodarone 400 mg daily with plan to continue that for 1 month during the postop period patient denies any chest pain. No palpitations. No shortness of breath. She has remained on a Cardizem drip which we'll plan to discontinue tomorrow after the new medication and doses have been started today. 11/05 This morning, blood pressure is 84/47, heart rate is still running 100-1 16. Patient denies having any shortness of breath, no lower extremity edema, no orthopnea. She states she had some nausea last night from her pain medications which is resolved. Yesterday, patient was started on IV Lasix by attending. Discussed with patient need to adjust medications including some long-term home medications such as Hytrin and nortriptyline in order to control her heart rate and maintain adequate blood pressure. Patient is in agreement. 11/06 The patient's blood pressure remains low at 82/50. She is on Lopressor 75 mg tw ice daily and amiodarone 400 mg daily. Patient did have some dizziness when she stood up and worked with physical therapy. Telemetry is atrial fibrillation 120 bpm. 11/07 Patient has converted to sinus rhythm. Her heart rate is running in the 70s with PACs. Blood pressure 118/58, pulse ox 91-93% on room air. Reviewed with patient the medication changes that were made. Physical examination: Gen: This is an 82-year-old female. She is resting bed appears to be comfortable and in no acute distress. VS: reviewed HEENT: Head is atraumatic, normocephalic. Pupils equal, round. Sclerae is anicteric. NECK: Supple. No JVD. . LUNGS: Clear to auscultation. No wheezes or rhonchi. No intercostal retractions. HEART: Irregular rate and rhythm. 2/6 systolic murmur. EXTREMITIES: No pedal edema. No calf tenderness. NEUROLOGICAL: Patient is awake, alert and oriented x3. Assessment: Small bowel obstruction status post exploratory laparotomy and lysis of adhesions A. fib with RVR Paroxysmal atrial fibrillation Peripheral vascular disease Hyperlipidemia Hypertension Mitral valve regurgitation Obstructive sleep apnea Hypotension from medications Plan: Discontinue nortriptyline. Continue amiodarone 400 mg twice daily for 7d and then daily for 21 days and then discontinue. Prescriptions for new medications will be sent to her pharmacy, med reconciliation for cardiac medications will be done. Patient is cleared from cardiology for discharge and may follow up in the office with Dr. Benitez in one week. Nurse practitioner note has been reviewed, I agree with documented findings and plan of care. Patient was seen and examined. Objective - Vital Signs Vital signs: Vital Signs Temp 98.0 F 11/07/22 07:20 Pulse 85 11/07/22 07:20 Resp 18 11/07/22 07:20 BP 118/58 11/07/22 07:20 Pulse Ox 91 L 11/07/22 07:20 FiO2 21 11/03/22 15:41 Intake & Output 11/06/22 11/07/22 11/07/22 18:59 06:59 18:59 Intake Total 420 Output Total 500 Balance 420 -500 Intake: Oral 420 Output: Urine 500 Other: Voiding Method Toilet Bedside Commode # Voids 1 - Labs CBC & Chem 7: 11/06/22 07:44 11/06/22 07:44
--- NOTE | 2022-11-07 11:30 | P.DS ---
Providers Date of admission: 10/31/22 16:11 Expected date of discharge: 11/07/22 Attending physician: Ulices Michel Consults: 10/31/22 18:26 Consult Physician Routine Consulting Provider: Amanda Arreaga Consult Reason/Comments: Medical management Do you want consulting provider notified?: Yes 11/03/22 08:07 Consult Physician Routine Consulting Provider: Anton Lo Consult Reason/Comments: atrial fib RVR rate 160-170's has hx and recently underwent sx Do you want consulting provider notified?: Yes Primary care physician: Lan Wallace Hospital Course: Discharge diagnosis 1. Closed loop small bowel obstruction status post exploratory laparotomy and lysis of adhesions Hospital course This 82-year-old female who presented with abdominal pain with nausea and v omiting. Computed tomography scan had shown dilated bowel loops in the left abdomen with diffuse mesenteric edema. Closed loop obstruction was in the differential. Patient is status post exploratory laparotomy and lysis of adhesions for closed loop small bowel obstruction. Patient did have atrial fibrillation with rapid ventricular response post surgery and also hypotension from medications. Cardiology did adjust medications. The patient's heart rate and blood pressure have improved. Cardiology has cleared patient for discharge. Patient is tolerating diet. She did have a bowel movement. She has been up and ambulating. She's afebrile. Incision site is clean dry and intact. She is stable for discharge. Please refer to chart for any further details. Physician Hospital Cleaning Specialist note has been reviewed by physician. Signing provider agrees with the documented findings, assessment, and plan of care. Patient Condition at Discharge: Stable Plan - Discharge Summary New Discharge Prescriptions: New Amiodarone [Cordarone] 400 mg PO BID #35 tab Continue Famotidine 40 mg PO DAILY rOPINIRole HCL [Requip] 1 mg PO BID Escitalopram [Lexapro] 20 mg PO DAILY Atorvastatin [Lipitor] 10 mg PO HS Apixaban [Eliquis] 5 mg PO BID allopurinoL [Zyloprim] 100 mg PO DAILY ALPRAZolam [Xanax] 0.25 mg PO DAILY PRN PRN Reason: Anxiety Benzonatate [Tessalon Perles] 100 mg PO TID PRN PRN Reason: Nausea Acetaminophen Tab [Tylenol] 650 mg PO Q6HR PRN tab PRN Reason: Mild Pain Or Fever > 100.5 Cholecalciferol [Vitamin D3 (125 Mcg = 5000 Iu)] 125 mcg PO DAILY 30 Days #30 tablet L.acidoph,Paracasei, B.lactis [Probiotic] 1 cap PO DAILY Changed Metoprolol Tartrate [Lopressor] 75 mg PO BID #360 tab Discontinued Nortriptyline [Pamelor] 20 mg PO HS Terazosin [Hytrin] 5 mg PO HS Losartan [Cozaar] 50 mg PO DAILY Cholestyramine (with Sugar) [Cholestyramine Packet] 4 gm PO DAILY No Action Azithromycin [Zithromax Z Pack] See Taper PO DIRECTED Discharge Medication List Atorvastatin [Lipitor] 10 mg PO HS 12/17/16 [History] Escitalopram [Lexapro] 20 mg PO DAILY 12/17/16 [History] Famotidine 40 mg PO DAILY 12/17/16 [History] rOPINIRole HCL [Requip] 1 mg PO BID 12/17/16 [History] Apixaban [Eliquis] 5 mg PO BID 11/26/17 [History] allopurinoL [Zyloprim] 100 mg PO DAILY 02/01/20 [History] Acetaminophen Tab [Tylenol] 650 mg PO Q6HR PRN tab 03/26/21 [Rx] Cholecalciferol [Vitamin D3 (125 Mcg = 5000 Iu)] 125 mcg PO DAILY 30 Days #30 tablet 03/26/21 [Rx] ALPRAZolam [Xanax] 0.25 mg PO DAILY PRN 10/31/22 [History] Azithromycin [Zithromax Z Pack] See Taper PO DIRECTED 10/31/22 [History] Benzonatate [Tessalon Perles] 100 mg PO TID PRN 10/31/22 [History] L.acidoph,Paracasei, B.lactis [Probiotic] 1 cap PO DAILY 10/31/22 [History] Amiodarone [Cordarone] 400 mg PO BID #35 tab 11/07/22 [Rx] Metoprolol Tartrate [Lopressor] 75 mg PO BID #360 tab 11/07/22 [Rx] Follow up Appointment(s)/Referral(s): [facility], [NON-STAFF] - Ken Benitez MD [STAFF PHYSICIAN] - 1 Week Lan Wallace MD [Primary Care Provider] - 1-2 days Ulices Michel MD [STAFF PHYSICIAN] - 1 Week Activity/Diet/Wound Care/Special Instructions: No lifting over 10 pounds Shower daily. No soaking or tub baths for 2 weeks Very light activity until you are reevaluated at your follow up appointment with your surgeon Discharge Disposition: HOME WITH HOME HEALTH SERVICES
[2022-11-07 11:33] VITALS: BMI 25.4
--- NOTE | 2022-11-07 13:38 | P.PN ---
Subjective Progress Note Date: 11/07/22 CHIEF COMPLAINT: Closed loop small bowel obstruction HISTORY OF PRESENT ILLNESS: Patient is postop day #7 status post exploratory laparotomy and lysis of adhesions. Patient did have a small bowel movements. Denies any nausea or vomiting. She reports her pain is controlled. She does have abdominal pain when she coughs. Patient initially to be discharged today. She was cleared by cardiology. Heart rate and BP have improved. However, patient has been more lethargic throughout the day. She will wake up answer questions but then falls right back to sleep. She has not eaten today. Afebrile. Vitals stable. PHYSICAL EXAM: VITAL SIGNS: Reviewed. GENERAL: Well-developed in no acute distress. ABDOMEN: Soft. Nondistended. Incision clean dry and intact NEUROLOGIC: Sleeping but easily arousable and able to answer questions ASSESSMENT: 1. Closed loop small bowel obstruction status post exploratory laparotomy and lysis of adhesions PLAN: -Discharge canceled today due to patient being lethargic -Nursing staff to notify medicine service the patient is more lethargic and discharge held -Continue regular diet -Continue pain management -Encouraged patient to ambulate -Encourage patient to use incentive spirometer Physician Processing Operator note has been reviewed by physician. Signing provider agrees with the documented findings, assessment, and plan of care. Objective - Vital Signs Vital signs: Vital Signs Temp 98 F 11/07/22 11:06 Pulse 87 11/07/22 11:06 Resp 18 11/07/22 11:06 BP 118/57 11/07/22 11:06 Pulse Ox 91 L 11/07/22 07:20 FiO2 21 11/03/22 15:41 Intake & Output 11/06/22 11/07/22 11/07/22 18:59 06:59 18:59 Intake Total 420 Output Total 500 Balance 420 -500 Weight 65.2 kg Intake: Oral 420 Output: Urine 500 Other: Voiding Method Toilet Bedside Commode # Voids 1 - Labs CBC & Chem 7: 11/06/22 07:44 11/06/22 07:44
--- NOTE | 2022-11-07 16:39 | P.PN ---
Subjective Progress Note Date: 11/07/22 Patient is a pleasant 82-year-old female with a past medical history of CAD, cardiomyopathy, hypertension, hyperlipidemia, paroxysmal atrial fibrillation on anticoagulation with Eliquis, pulmonary fibrosis, and obstructive sleep apnea CPAP dependent nightly. She presented to the emergency department on 10/31/22 with a chief complaint of lower abdominal pain accompanied by nausea and vomiting. She underwent full evaluation in the emergency department. CBC, coagulation profile, and BMP were completed showing no significant abnormalities. Magnesium was low at 1.5. Influenza A, influenza B, Covid, and RSV negative. Chest x-ray revealed scattered interstitial changes throughout the lungs bilaterally. EKG showing normal sinus rhythm with occasional PACs at [address] abdomen and pelvis with contrast was completed showing dilated bowel loops in the abdomen with diffuse mesenteric edema concerning for small bowel obstruction with small amount of ascites and postcholecystectomy and intrahepati c and extrahepatic bile duct dilation, and a 3.3 cm infrarenal abdominal aortic aneurysm. Patient was admitted under General surgery team for small bowel obstruction and taken for exploratory laparotomy with lysis of adhesions by Dr. Michel and we were consulted during postoperative timeframe for medical management throughout hospitalization.On the morning of 11/03/22, received a page at 8 AM the patientas a new onset atrial fibrillation with RVR. Patient has a known history of paroxysmal atrial fibrillation but this morning when into RVR and has been sustaining with a ventricular rate between 150s and 170s. Order placed for stat EKG, Cardizem bolus 10 mg IVP 1 dose followed by Cardizem infusion and transferred to stepdown unit. EKG reviewed showing atrial fibrillation with RVR to sustain ventricular rate of 155 bpm. 11/07 Patient seen and evaluated at bedside this morning. She is urinating freely. Had a small bowel movement. Patient remains in atrial fibrillation with ventricular rate in the 80s. Gen: awake, alert HEENT: normocephalic, atraumatic, good hearing acuity, dry mucous membranes Resp: good air exchange, breathing comfortably with no accessory muscle use CVS: good distal perfusion x 4 GI: soft, NTTP, ND : no SPT, no CVAT, serrano catheter not present MSK: no pitting edema, no clubbing Neuro: non-focal, moving all extremities Psych: cooperative, euthymic mood Atrial fibrillation with RVR Chronic diastolic heart failure -Cardiology following stated no need for repeat echocardiogram previous EF of 55-60%. -Continue anticoagulation with Eliquis 5 mg twice daily -TSH was normal findings at 1.930. -Patient initially given Cardizem bolus followed by Cardizem infusion for rate control. Cardizem has been discontinued by Cardiology at this time. -Metoprolol has been titrated up to 75 mg twice daily in attempts to achieve optimal heart rate control. And patient has been started on amiodarone 400 mg daily -Lasix discontinued -Chest x-ray was completed 11/03/22 showing cardiomegaly and mild pulmonary vascular congestion consistent with congestive heart failure. -ProBNP elevated at 2760. Small bowel obstruction -Patient admitted under Gen. surgery team and underwent repair of small bowel obstruction with exploratory laparotomy with lysis of adhesions by Dr. Michel on 10/31/22. -Continue symptomatic care and pain management. -Encourage incentive spirometry 10-15 times hourly while awake. -Patient is tolerating a regular diet at this time. Acute postoperative blood loss anemia, resolved Coronary artery disease Cardiomyopathy Hypertension Hyperlipidemia -Continue home medication regimen with atorvastatin 10 mg nightly, losartan 50 mg daily, and metoprolol 25 mg twice daily. -Recommend continuing Telemetry monitoring during postoperative period. Pulmonary fibrosis Obstructive sleep apnea CPAP dependent -Continue scheduled DuoNeb's 4 times daily and as needed for shortness of breath and/or wheezing. -Patient to be provided with oxygenation as needed . -Encourage use of incentive spirometry 10-15 times hourly while awake. -Continue CPAP nightly Abdominal aortic aneurysm -Incidental findings on CT shows a 3.3 cm infrarenal abdominal aortic aneurysm, recommend outpatient follow-up with vascular surgery. Data reviewed: -Vital signs reviewed and stable. Objective - Vital Signs Vital signs: Vital Signs Temp 98 F 11/07/22 15:00 Pulse 81 11/07/22 15:00 Resp 18 11/07/22 15:00 BP 110/70 11/07/22 15:00 Pulse Ox 91 L 11/07/22 07:20 FiO2 21 11/03/22 15:41 Intake & Output 11/06/22 11/07/22 11/07/22 18:59 06:59 18:59 Intake Total 420 Output Total 500 Balance 420 -500 Weight 65.2 kg Intake: Oral 420 Output: Urine 500 Other: Voiding Method Toilet Bedside Commode # Voids 1 - Labs CBC & Chem 7: 11/06/22 07:44 11/06/22 07:44
[2022-11-07] MEDS: BENZOCAINE/MENTHOL LOZENG 1 EACH LOZENGE MUCOUS MEM PRN (16:44)
[2022-11-07] MEDS: ATORVASTATIN 10 MG TAB PO SCH (20:12)
[2022-11-08 07:30] LABS: Basophils % (A) 0 %; Eosinophils # (A) 0.6 k/uL (0-0.7); Eosinophils % (A) 5 %; HCT 35.2 % (34.0-46.0); HGB 11.5 gm/dL (11.4-16.0); Lymphocytes % (A) 18 %; MCH 28.9 pg (25.0-35.0); MCHC 32.6 g/dL (31.0-37.0); MCV 88.5 fL (80.0-100.0); Mean Platelet Volume 7.3; Monocytes # (A) 0.8 k/uL (0-1.0); Monocytes % (A) 7 %; Neutrophils # (A) 7.6 k/uL (1.3-7.7); Neutrophils % (A) 68 %; Platelet Count 230 k/uL (150-450); RBC 3.97 m/uL (3.80-5.40); RDW 15.5 % (11.5-15.5); WBC 11.1 k/uL (3.8-10.6)
[2022-11-08 07:48] LABS: African American GFR (CKD) 88 (>60 ml/min/1.73 sqM); Anion Gap 2 mmol/L; Blood Urea Nitrogen 11 mg/dL (7-17); Calcium 9.2 mg/dL (8.4-10.2); Carbon Dioxide 31 mmol/L (22-30); Chloride 100 mmol/L (98-107); Glucose 107 mg/dL (74-99); Non-African American GFR(CKD) 76 (>60 ml/min/1.73 sqM); Sodium 133 mmol/L (137-145)
--- NOTE | 2022-11-08 08:44 | P.DS ---
Providers Date of admission: 10/31/22 16:11 Expected date of discharge: 11/08/22 Attending physician: Ulices Michel Consults: 10/31/22 18:26 Consult Physician Routine Consulting Provider: Amanda Arreaga Consult Reason/Comments: Medical management Do you want consulting provider notified?: Yes 11/03/22 08:07 Consult Physician Routine Consulting Provider: Anton Lo Consult Reason/Comments: atrial fib RVR rate 160-170's has hx and recently underwent sx Do you want consulting provider notified?: Yes Primary care physician: Lan Wallace Hospital Course: Discharge diagnosis 1. Closed loop small bowel obstruction status post exploratory laparotomy and lysis of adhesions Hospital course This 82-year-old female who presented with abdominal pain with nausea and vomiting. Computed tomography scan had shown dilated bowel loops in the left abdomen with diffuse mesenteric edema. Closed loop obstruction was in the differential. Patient is status post exploratory laparotomy and lysis of adhesions for closed loop small bowel obstruction. Patient did have atrial fibrillation with rapid ventricular response post surgery and also hypotension from medications. Cardiology did adjust medications. The patient's heart rate and blood pressure have improved. Cardiology has cleared patient for discharge. Patient is tolerating diet. She did have a bowel movement. She has been up and ambulating. She's afebrile. Incision site is clean dry and intact. Discharge was held yesterday due to patient being more lethargic. Vitals are stable. She is awake alert and orientated. She has been up and ambulating. She is feeling better than yesterday. She does complain of a cough. White count elevated 11.1. She'll be discharged with antibiotics. Patient is stable for discharge. Please refer to chart for any further details. Physician Wrapper Layer And Examiner Soft Work note has been reviewed by physician. Signing provider agrees with the documented findings, assessment, and plan of care. Patient Condition at Discharge: Stable Plan - Discharge Summary New Discharge Prescriptions: New Amiodarone [Cordarone] 400 mg PO BID #35 tab Docusate [Colace] 100 mg PO BID #30 capsule Amoxic-Pot Clav 875-125Mg [Augmentin 875-125] 1 tab PO Q12HR 5 Days #10 tab Continue Famotidine 40 mg PO DAILY rOPINIRole HCL [Requip] 1 mg PO BID Escitalopram [Lexapro] 20 mg PO DAILY Atorvastatin [Lipitor] 10 mg PO HS Apixaban [Eliquis] 5 mg PO BID allopurinoL [Zyloprim] 100 mg PO DAILY ALPRAZolam [Xanax] 0.25 mg PO DAILY PRN PRN Reason: Anxiety Benzonatate [Tessalon Perles] 100 mg PO TID PRN PRN Reason: Nausea Acetaminophen Tab [Tylenol] 650 mg PO Q6HR PRN tab PRN Reason: Mild Pain Or Fever > 100.5 Cholecalciferol [Vitamin D3 (125 Mcg = 5000 Iu)] 125 mcg PO DAILY 30 Days #30 tablet L.acidoph,Paracasei, B.lactis [Probiotic] 1 cap PO DAILY Changed Metoprolol Tartrate [Lopressor] 75 mg PO BID #360 tab Discontinued Nortriptyline [Pamelor] 20 mg PO HS Terazosin [Hytrin] 5 mg PO HS Losartan [Cozaar] 50 mg PO DAILY Cholestyramine (with Sugar) [Cholestyramine Packet] 4 gm PO DAILY No Action Azithromycin [Zithromax Z Pack] See Taper PO DIRECTED Discharge Medication List Atorvastatin [Lipitor] 10 mg PO HS 12/17/16 [History] Escitalopram [Lexapro] 20 mg PO DAILY 12/17/16 [History] Famotidine 40 mg PO DAILY 12/17/16 [History] rOPINIRole HCL [Requip] 1 mg PO BID 12/17/16 [History] Apixaban [Eliquis] 5 mg PO BID 11/26/17 [History] allopurinoL [Zyloprim] 100 mg PO DAILY 02/01/20 [History] Acetaminophen Tab [Tylenol] 650 mg PO Q6HR PRN tab 03/26/21 [Rx] Cholecalciferol [Vitamin D3 (125 Mcg = 5000 Iu)] 125 mcg PO DAILY 30 Days #30 tablet 03/26/21 [Rx] ALPRAZolam [Xanax] 0.25 mg PO DAILY PRN 10/31/22 [History] Azithromycin [Zithromax Z Pack] See Taper PO DIRECTED 10/31/22 [History] Benzonatate [Tessalon Perles] 100 mg PO TID PRN 10/31/22 [History] L.acidoph,Paracasei, B.lactis [Probiotic] 1 cap PO DAILY 10/31/22 [History] Amiodarone [Cordarone] 400 mg PO BID #35 tab 11/07/22 [Rx] Docusate [Colace] 100 mg PO BID #30 capsule 11/07/22 [Rx] Metoprolol Tartrate [Lopressor] 75 mg PO BID #360 tab 11/07/22 [Rx] Amoxic-Pot Clav 875-125Mg [Augmentin 875-125] 1 tab PO Q12HR 5 Days #10 tab 11/08/22 [Rx] Follow up Appointment(s)/Referral(s): [facility], [NON-STAFF] - Ken Benitez MD [STAFF PHYSICIAN] - 11/20/22 2:00 pm (Friday) [facility] [NON-STAFF] - As Needed (You can call [facility] to arrange for Meals on Wheels if you are interested.) Lan Wallace MD [Primary Care Provider] - 11/11/22 1:30 pm (Friday) Ulices Michel MD [STAFF PHYSICIAN] - 11/14/22 2:30 pm () Activity/Diet/Wound Care/Special Instructions: No lifting over 10 pounds Shower daily. No soaking or tub baths for 2 weeks Very light activity until you are reevaluated at your follow up appointment with your surgeon Discharge Disposition: HOME WITH HOME HEALTH SERVICES
[2022-11-08] MEDS ORDERED: AMOXIC-POT CLAV 875-125MG 1 EACH TAB PO SCH (09:00)
[2022-11-08] MEDS: IPRATROPIUM-ALBUTEROL 3 ML NEB INHALATION SCH ×3 (09:09→15:38)
[2022-11-08] MEDS: APIXABAN 5 MG TAB PO SCH (09:14)
[2022-11-08] MEDS: DOCUSATE 100 MG CAP PO SCH (09:14)
[2022-11-08] MEDS: BENZONATATE 100 MG CAP PO SCH ×2 (09:14→16:14)
[2022-11-08] MEDS: AMIODARONE 200 MG TAB PO SCH (09:15)
[2022-11-08] MEDS: allopurinoL 100 MG TAB PO SCH (09:15)
[2022-11-08 09:18] VITALS: RESP 16
[2022-11-08] MEDS: METOPROLOL TARTRATE 25 MG TAB PO SCH (09:21)
[2022-11-08 12:26] VITALS: BP 119/58; PULSE 68; TEMP 98.2
--- NOTE | 2022-11-08 15:54 | P.PN ---
Subjective Progress Note Date: 11/08/22 Patient is a pleasant 82-year-old female with a past medical history of CAD, cardiomyopathy, hypertension, hyperlipidemia, paroxysmal atrial fibrillation on anticoagulation with Eliquis, pulmonary fibrosis, and obstructive sleep apnea CPAP dependent nightly. She presented to the emergency department on 10/31/22 with a chief complaint of lower abdominal pain accompanied by nausea and vomiting. She underwent full evaluation in the emergency department. CBC, coagulation profile, and BMP were completed showing no significant abnormalities. Magnesium was low at 1.5. Influenza A, influenza B, Covid, and RSV negative. Chest x-ray revealed scattered interstitial changes throughout the lungs bilaterally. EKG showing normal sinus rhythm with occasional PACs at [address] abdomen and pelvis with contrast was completed showing dilated bowel loops in the abdomen with diffuse mesenteric edema concerning for small bowel obstruction with small amount of ascites and postcholecystectomy and intrahepati c and extrahepatic bile duct dilation, and a 3.3 cm infrarenal abdominal aortic aneurysm. Patient was admitted under General surgery team for small bowel obstruction and taken for exploratory laparotomy with lysis of adhesions by Dr. Michel and we were consulted during postoperative timeframe for medical management throughout hospitalization.On the morning of 11/03/22, received a page at 8 AM the patientas a new onset atrial fibrillation with RVR. Patient has a known history of paroxysmal atrial fibrillation but this morning when into RVR and has been sustaining with a ventricular rate between 150s and 170s. Order placed for stat EKG, Cardizem bolus 10 mg IVP 1 dose followed by Cardizem infusion and transferred to stepdown unit. EKG reviewed showing atrial fibrillation with RVR to sustain ventricular rate of 155 bpm. 11/07 Patient seen and evaluated at bedside this morning. She is urinating freely. Had a small bowel movement. Patient remains in atrial fibrillation with ventricular rate in the 80s. 11/08 Patient was seen and examined. She reports no complaints. Discharge held ye day due to lethargy but patient appears at baseline this morning. Gen: awake, alert HEENT: normocephalic, atraumatic, good hearing acuity, dry mucous membranes Resp: good air exchange, breathing comfortably with no accessory muscle use CVS: good distal perfusion x 4 GI: soft, NTTP, ND : no SPT, no CVAT, serrano catheter not present MSK: no pitting edema, no clubbing Neuro: non-focal, moving all extremities Psych: cooperative, euthymic mood Atrial fibrillation with RVR Chronic diastolic heart failure -Cardiology following stated no need for repeat echocardiogram previous EF of 55-60%. -Continue anticoagulation with Eliquis 5 mg twice daily -TSH was normal findings at 1.930. -Patient initially given Cardizem bolus followed by Cardizem infusion for rate control. Cardizem has been discontinued by Cardiology at this time. -Metoprolol has been titrated up to 75 mg twice daily in attempts to achieve optimal heart rate control. And patient has been started on amiodarone 400 mg daily -Lasix discontinued -Chest x-ray was completed 11/03/22 showing cardiomegaly and mild pulmonary vasc ular congestion consistent with congestive heart failure. -ProBNP elevated at 2760. Small bowel obstruction -Patient admitted under Gen. surgery team and underwent repair of small bowel obstruction with exploratory laparotomy with lysis of adhesions by Dr. Michel on 10/31/22. -Continue symptomatic care and pain management. -Encourage incentive spirometry 10-15 times hourly while awake. -Patient is tolerating a regular diet at this time. Acute postoperative blood loss anemia, resolved Coronary artery disease Cardiomyopathy Hypertension Hyperlipidemia -Continue home medication regimen with atorvastatin 10 mg nightly, losartan 50 mg daily, and metoprolol 25 mg twice daily. -Recommend continuing Telemetry monitoring during postoperative period. Pulmonary fibrosis Obstructive sleep apnea CPAP dependent -Continue scheduled DuoNeb's 4 times daily and as needed for shortness of breath and/or wheezing. -Patient to be provided with oxygenation as needed . -Encourage use of incentive spirometry 10-15 times hourly while awake. -Continue CPAP nightly Abdominal aortic aneurysm -Incidental findings on CT shows a 3.3 cm infrarenal abdominal aortic aneurysm, recommend outpatient follow-up with vascular surgery. Data reviewed: -Vital signs reviewed and stable. Objective - Vital Signs Vital signs: Vital Signs Temp 98.2 F 11/08/22 12:00 Pulse 68 11/08/22 12:00 Resp 16 11/08/22 12:00 BP 119/58 11/08/22 12:00 Pulse Ox 97 11/08/22 12:00 FiO2 21 11/03/22 15:41 Intake & Output 11/07/22 11/08/22 11/08/22 18:59 06:59 18:59 Intake Total 240 240 Balance 240 240 Weight 65.2 kg 62 kg Intake: Oral 240 240 Other: Voiding Method Toilet Toilet Bedside Commode Bedside Commode # Voids 1 - Labs CBC & Chem 7: 11/08/22 06:57 11/08/22 06:57 Labs: Abnormal Lab Results - Last 24 Hours (Table) 11/08/22 11/08/22 Range/Units 06:57 06:57 WBC 11.1 H (3.8-10.6) k/uL Sodium 133 L (137-145) mmol/L Carbon Dioxide 31 H (22-30) mmol/L Glucose 107 H (74-99) mg/dL
== END 2022-11-08 16:17 | disposition home health service (06) | DRG 335 ==
LOC: OR 12:20 → 4SSUR 16:11 → 3SCARD 11-03 10:27
PROVIDERS: ADMIT Surgery; ATTEND Surgery
PROC: 0DN80ZZ Release Small Intestine, Open Approach (ICD-10-PCS; principal; 2022-10-31 07:30)
DX: K56.52 Intestinal adhesions [bands] with complete obstruction (principal); I50.33 Acute on chronic diastolic (congestive) heart failure; K55.9 Vascular disorder of intestine, unspecified; N17.9 Acute kidney failure, unspecified; I42.9 Cardiomyopathy, unspecified; E87.1 Hypo-osmolality and hyponatremia; D62 Acute posthemorrhagic anemia; K83.8 Other specified diseases of biliary tract; J84.10 Pulmonary fibrosis, unspecified; E87.8 Other disorders of electrolyte and fluid balance, not elsewhere classified; I48.0 Paroxysmal atrial fibrillation; I11.0 Hypertensive heart disease with heart failure; I73.9 Peripheral vascular disease, unspecified; I71.43 Infrarenal abdominal aortic aneurysm, without rupture; F31.9 Bipolar disorder, unspecified; I95.2 Hypotension due to drugs; G25.81 Restless legs syndrome; Z20.822 Contact with and (suspected) exposure to COVID-19; T43.015A Adverse effect of tricyclic antidepressants, initial encounter; G47.33 Obstructive sleep apnea (adult) (pediatric); I25.10 Atherosclerotic heart disease of native coronary artery without angina pectoris; E78.5 Hyperlipidemia, unspecified; E83.42 Hypomagnesemia; F41.9 Anxiety disorder, unspecified; G89.29 Other chronic pain; J30.2 Other seasonal allergic rhinitis; K21.9 Gastro-esophageal reflux disease without esophagitis; K44.9 Diaphragmatic hernia without obstruction or gangrene; I34.0 Nonrheumatic mitral (valve) insufficiency; K59.00 Constipation, unspecified; M48.00 Spinal stenosis, site unspecified; M19.90 Unspecified osteoarthritis, unspecified site; M25.551 Pain in right hip; M25.552 Pain in left hip; Z79.01 Long term (current) use of anticoagulants; Z79.899 Other long term (current) drug therapy; Z87.891 Personal history of nicotine dependence; Z86.73 Personal history of transient ischemic attack (TIA), and cerebral infarction without residual deficits; Z87.440 Personal history of urinary (tract) infections; Z88.1 Allergy status to other antibiotic agents; Z88.5 Allergy status to narcotic agent; Z88.2 Allergy status to sulfonamides; Z88.8 Allergy status to other drugs, medicaments and biological substances; Z91.018 Allergy to other foods
CPT/HCPCS: 36415; 71045; 71046; 74177; 80048; 80053; 83605; 83690; 83735; 83880; 84443; 84484; 85025; 85027; 85610; 85730; 87636; 93005; 94640; 94760; 96374; 99285

== ENCOUNTER 2022-11-11 21:53 | Emergency (ER) | payer MEDICARE, BC ==
[2022-11-11 22:18] VITALS: RESP 18
[2022-11-11] MEDS ORDERED: SODIUM CHLORIDE 0.9% 500 ML 500 ML IV STA (22:46)
[2022-11-11 23:23] LABS: Basophils % (A) 0 %; Eosinophils # (A) 0.7 k/uL (0-0.7); Eosinophils % (A) 7 %; HCT 38.7 % (34.0-46.0); HGB 12.7 gm/dL (11.4-16.0); Lymphocytes # (A) 2.2 k/uL (1.0-4.8); Lymphocytes % (A) 23 %; MCHC 32.8 g/dL (31.0-37.0); MCV 88.4 fL (80.0-100.0); Monocytes # (A) 0.7 k/uL (0-1.0); Monocytes % (A) 8 %; Neutrophils # (A) 5.7 k/uL (1.3-7.7); Neutrophils % (A) 59 %; Platelet Count 303 k/uL (150-450); RBC 4.37 m/uL (3.80-5.40); RDW 15.3 % (11.5-15.5); WBC 9.6 k/uL (3.8-10.6)
[2022-11-11 23:34] LABS: ALT 21 U/L (4-34); AST 18 U/L (14-36); African American GFR (CKD) 88 (>60 ml/min/1.73 sqM); Albumin 3.1 g/dL (3.5-5.0); Alkaline Phosphatase 61 U/L (38-126); Anion Gap 8 mmol/L; Blood Urea Nitrogen 8 mg/dL (7-17); Calcium 9.8 mg/dL (8.4-10.2); Carbon Dioxide 25 mmol/L (22-30); Chloride 101 mmol/L (98-107); Glucose 105 mg/dL (74-99); Lipase 110 U/L (23-300); Magnesium 1.5 mg/dL (1.6-2.3); Non-African American GFR(CKD) 76 (>60 ml/min/1.73 sqM); Potassium 3.6 mmol/L (3.5-5.1); Sodium 134 mmol/L (137-145); Total Bilirubin 0.8 mg/dL (0.2-1.3)
--- NOTE | 2022-11-12 00:19 | ED ---
General Adult HPI - General Chief complaint: Nausea/Vomiting/Diarrhea Stated complaint: Diarrhea Time Seen by Provider: 11/11/22 22:46 Source: EMS Mode of arrival: EMS Limitations: no limitations - History of Present Illness Initial comments: Patient is an 82-year-old female who presents the emergency department for diarrhea. Patient had surgery for small bowel obstruction [address] Michel. Over the past couple days patient has had one to 2 episodes of diarrhea daily, nonbloody. States she has very minimal pain which has been improving since the surgery. She denies fever, chills, nausea, vomiting. She recently finished Augmentin she denies history of C. diff. No upper respiratory symptoms. Patient has no other concerns. - Related Data Home Medications Medication Instructions Recorded Confirmed Atorvastatin [Lipitor] 10 mg PO HS 12/17/16 10/31/22 Escitalopram [Lexapro] 20 mg PO DAILY 12/17/16 10/31/22 Famotidine 40 mg PO DAILY 12/17/16 10/31/22 rOPINIRole HCL [Requip] 1 mg PO BID 12/17/16 10/31/22 Apixaban [Eliquis] 5 mg PO BID 11/26/17 10/31/22 allopurinoL [Zyloprim] 100 mg PO DAILY 02/01/20 10/31/22 ALPRAZolam [Xanax] 0.25 mg PO DAILY PRN 10/31/22 10/31/22 Azithromycin [Zithromax Z Pack] See Taper PO DIRECTED 10/31/22 10/31/22 Benzonatate [Tessalon Perles] 100 mg PO TID PRN 10/31/22 10/31/22 L.acidoph,Paracasei, B.lactis 1 cap PO DAILY 10/31/22 10/31/22 [Probiotic] Previous Rx's Medication Instructions Recorded Acetaminophen Tab [Tylenol] 650 mg PO Q6HR PRN tab 03/26/21 Cholecalciferol [Vitamin D3 (125 125 mcg PO DAILY 30 Days #30 tablet 03/26/21 Mcg = 5000 Iu)] Amiodarone [Cordarone] 400 mg PO BID #35 tab 11/07/22 Docusate [Colace] 100 mg PO BID #30 capsule 11/07/22 Metoprolol Tartrate [Lopressor] 75 mg PO BID #360 tab 11/07/22 Amoxic-Pot Clav 875-125Mg 1 tab PO Q12HR 5 Days #10 tab 11/08/22 [Augmentin 875-125] Allergies Allergy/AdvReac Type Severity Reaction Status Date / Time amoxicillin [From Augmentin] Allergy Diarrhea Verified 11/11/22 22:12 banana Allergy Nausea & Verified 10/31/22 15:51 Vomiting & Diarrhea clavulanic acid Allergy Diarrhea Verified 11/11/22 22:12 [From Augmentin] codeine Allergy Nausea & Verified 10/31/22 15:51 Vomiting, hives/rash hydrocodone [From Evans] Allergy Rash/Hives Verified 10/31/22 15:51 morphine Allergy Nausea & Verified 10/31/22 15:51 Vomiting, rash/hives nitrofurantoin Allergy Unknown Verified 10/31/22 15:51 propoxyphene [From Darvon] Allergy Nausea & Verified 10/31/22 15:51 Vomiting, rash/hives Sulfa (Sulfonamide Allergy Rash/Hives Verified 10/31/22 15:51 Antibiotics) aripiprazole [From Abilify] AdvReac severe, Verified 10/31/22 15:51 increased anxiety. bupropion [From Wellbutrin] AdvReac severe, Verified 10/31/22 15:51 increased anxiety. Review of Systems ROS Statement: Those systems with pertinent positive or pertinent negative responses have been documented in the HPI. ROS Other: All systems not noted in ROS Statement are negative. Past Medical History Past Medical History: Atrial Fibrillation, Chest Pain / Angina, Heart Failure, CVA/TIA, GERD/Reflux, Hyperlipidemia, Hypertension, Osteoarthritis (OA), Sleep Apnea/CPAP/BIPAP Additional Past Medical History / Comment(s): Pulmonary fibrosis. Other hx: DDD, DJD, SPINAL STENOSIS, chronic bilateral hip pain worse on R side, 2018 septic arthritis R wrist, occluded carotid right artery, TIA x 2, RLS, seasonal allergies, KEVIN with CPAP USED, UTIs, diverticular dx, HAD GERD IN PAST NONE SINCE HIATAL HERNIA SX.,CARDIOMYOPATHY, murmur. 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 History of Any Multi-Drug Resistant Organisms: None Reported Past Surgical History: Adenoidectomy, Appendectomy, Bladder Surgery, Cholecystectomy, Hysterectomy, Joint Replacement, Orthopedic Surgery, Tonsillectomy Additional Past Surgical History / Comment(s): bilateral hip replacments, R rotator cuff repair, vaginal hysterectomy with anterior and posterior repairs in 2001, sinus sx twice, niko cataracts-lens implants, hiatal hernia sx, bladder suspension, L breast bx-benign. Carotid surgery. Colonoscopy. Past Anesthesia/Blood Transfusion Reactions: No Reported Reaction, Motion Sickness Past Psychological History: Anxiety, Bipolar, Depression Smoking Status: Former smoker Past Alcohol Use History: None Reported Past Drug Use History: None Reported - Past Family History Mother Family Medical History: Cancer Additional Family Medical History / Comment(s): colon cancer Father Family Medical History: Congestive Heart Failure (CHF) Sister(s) Family Medical History: Cancer Additional Family Medical History / Comment(s): Breast cancer Daughter(s) Family Medical History: Cancer Additional Family Medical History / Comment(s): Cancer of the appendix. General Exam Limitations: no limitations General appearance: alert Eye exam: Present: normal appearance, PERRL, EOMI. Absent: scleral icterus, conjunctival injection, periorbital swelling ENT exam: Present: normal oropharynx, mucous membranes moist Respiratory exam: Present: normal lung sounds bilaterally. Absent: respiratory distress, wheezes, rales, rhonchi, stridor Cardiovascular Exam: Present: regular rate, normal rhythm, normal heart sounds. Absent: systolic murmur, diastolic murmur, rubs, gallop, clicks GI/Abdominal exam: Present: soft, normal bowel sounds. Absent: distended, tenderness, guarding, rebound, rigid Neurological exam: Present: alert Psychiatric exam: Present: normal affect, normal mood Skin exam: Present: warm, dry, intact, normal color. Absent: rash Course Vital Signs 11/11/22 11/12/22 22:10 01:14 Temperature 97.8 F 97.6 F Pulse Rate 88 68 Respiratory 18 18 Rate Blood Pressure 161/94 179/91 O2 Sat by Pulse 99 94 L Oximetry Medical Decision Making - Medical Decision Making Was pt. sent in by a medical professional or institution (, PA, AMBULATORY SERVICE REPRESENTATIVE, urgent care, hospital, or half-way...) When possible be specific @ -No Did you speak to anyone other than the patient for history (EMS, parent, family, police, friend...)? What history was obtained from this source @ -No Did you review nursing and triage notes (agree or disagree)? Why? @ -I reviewed and agree with nursing and triage notes Were old charts reviewed (outside hosp., previous admission, EMS record, old EKG, old radiological studies, urgent care reports/EKG's, half-way records)? Report findings @ -No old charts were reviewed Differential Diagnosis (chest pain, altered mental status, abdominal pain women, abdominal pain men, vaginal bleeding, weakness, fever, dyspnea, syncope, headache, dizziness, GI bleed, back pain, seizure, CVA, palpatations, mental health)? @ -Differential Abdominal Pain Women: Appendicitis, Cholecystitis, diverticulosis, ischemic bowel, pancreatitis, hepatitis, UTI, gastroenteritis, AAA, incarcerated hernia, bowel obstruction, constipation, inflammatory bowel, hepatitis, peptic ulcer disease, splenic infarction, perforated viscus, vulvitis, ovarian torsion, PID, kidney stone, placenta abruption, this is not meant to be an all-inclusive list EKG interpreted by me (3pts min.). @ -As above X-rays interpreted by me (1pt min.). @ -None done CT interpreted by me (1pt min.). @ -None done U/S interpreted by me (1pt. min.). @ -None done What testing was considered but not performed or refused? (CT, X-rays, U/S, labs)? Why? @ -None What meds were considered but not given or refused? Why? @ -None Did you discuss the management of the patient with other professionals (jason lopez i.e. , PA, AMBULATORY SERVICE REPRESENTATIVE, lab, RT, psych nurse, social services director, lead nitrate processor, teacher, coastal/harbor defense officer, returned case inspector)? Give summary @ -No Was smoking cessation discussed for >3mins.? @ -No Was critical care preformed (if so, how long)? @ -No Were there social determinants of health that impacted care today? How? (Homelessness, low income, unemployed, alcoholism, drug addiction, transportation, low edu. Level, literacy, decrease access to med. care, nursing home, rehab)? @ -No Was there de-escalation of care discussed even if they declined (Discuss DNR or withdrawal of care, Hospice)? DNR status @ -No What co-morbidities impacted this encounter? (DM, HTN, Smoking, COPD, CAD, Cancer, CVA, ARF, Chemo, Hep., AIDS, mental health diagnosis, sleep apnea, morbid obesity)? @ -None Was patient admitted / discharged? Hospital course, mention meds given and route, prescriptions, significant lab abnormalities, going to OR and other pertinent info. @ -82-year-old presents for diarrhea. Patient nontoxic appearing. Hemodynamically stable. Abdomen is soft and nontender. Magnesium minimally decreased at 1.5. Patient hydrated she is requesting to leave prior to stool sample Patient has no abdominal pain, history of C. diff, leukocytosis, fever, or vomiting. She is in stable medical condition for discharge we discussed return parameters. She will follow-up with her primary care provider Undiagnosed new problem with uncertain prognosis? @ -No Drug Therapy requiring intensive monitoring for toxicity (Heparin, Nitro, Insulin, Cardizem)? @ -No Were any procedures done? @ -No Diagnosis/symptom? @ diarrhea Acute, or Chronic, or Acute on Chronic? @ -acute Uncomplicated (without systemic symptoms) or Complicated (systemic symptoms)? @ -uncomplicated Side effects of treatment? @ -No Exacerbation, Progression, or Severe Exacerbation? @ -No Poses a threat to life or bodily function? How? (Chest pain, USA, PR, pneumonia, PE, COPD, DKA, ARF, appy, cholecystitis, CVA, Diverticulitis, Homicidal, Suicidal, threat to staff... and all critical care pts) @ -No Dr. Bee is my attending - Lab Data Result diagrams: 11/11/22 23:11 11/11/22 23:11 Lab Results 11/11/22 11/11/22 11/11/22 Range/Units 23:11 23:11 23:11 WBC 9.6 (3.8-10.6) k/uL RBC 4.37 (3.80-5.40) m/uL Hgb 12.7 (11.4-16.0) gm/dL Hct 38.7 (34.0-46.0) % MCV 88.4 (80.0-100.0) fL MCH 29.0 (25.0-35.0) pg MCHC 32.8 (31.0-37.0) g/dL RDW 15.3 (11.5-15.5) % Plt Count 303 (150-450) k/uL MPV 7.0 Neutrophils % 59 % Lymphocytes % 23 % Monocytes % 8 % Eosinophils % 7 % Basophils % 0 % Neutrophils # 5.7 (1.3-7.7) k/uL Lymphocytes # 2.2 (1.0-4.8) k/uL Monocytes # 0.7 (0-1.0) k/uL Eosinophils # 0.7 (0-0.7) k/uL Basophils # 0.0 (0-0.2) k/uL Sodium 134 L (137-145) mmol/L Potassium 3.6 (3.5-5.1) mmol/L Chloride 101 (98-107) mmol/L Carbon Dioxide 25 (22-30) mmol/L Anion Gap 8 mmol/L BUN 8 (7-17) mg/dL Creatinine 0.74 (0.52-1.04) mg/dL Est GFR (CKD-EPI)AfAm 88 (>60 ml/min/1.73 sqM) Est GFR (CKD-EPI)NonAf 76 (>60 ml/min/1.73 sqM) Glucose 105 H (74-99) mg/dL Calcium 9.8 (8.4-10.2) mg/dL Magnesium 1.5 L (1.6-2.3) mg/dL Total Bilirubin 0.8 (0.2-1.3) mg/dL AST 18 (14-36) U/L ALT 21 (4-34) U/L Alkaline Phosphatase 61 (38-126) U/L Total Protein 6.0 L (6.3-8.2) g/dL Albumin 3.1 L (3.5-5.0) g/dL Lipase 110 (23-300) U/L Influenza Type A (PCR) Not Detected (Not Detectd) Influenza Type B (PCR) Not Detected (Not Detectd) RSV (PCR) Not Detected (Not Detectd) SARS-CoV-2 (PCR) Not Detected (Not Detectd) Disposition Clinical Impression: Diarrhea Disposition: HOME SELF-CARE Condition: Good Instructions (If sedation given, give patient instructions): Acute Diarrhea (ED) Additional Instructions: Please follow-up with your primary care provider in 1-2 days. Return to the emergency department if you experience new, concerning, or worsening symptoms. Is patient prescribed a controlled substance at d/c from ED?: No Referrals: Lan Wallace MD [Primary Care Provider] - 1-2 days
[2022-11-12 01:23] VITALS: BP 179/91; PULSE 68; TEMP 97.6
== END 2022-11-12 01:15 | disposition home or self-care (01) ==
LOC: EC 21:53
DX: R19.7 Diarrhea, unspecified (principal); I48.91 Unspecified atrial fibrillation; I11.0 Hypertensive heart disease with heart failure; I50.9 Heart failure, unspecified; E78.5 Hyperlipidemia, unspecified; K21.9 Gastro-esophageal reflux disease without esophagitis; G47.30 Sleep apnea, unspecified; F41.9 Anxiety disorder, unspecified; F31.9 Bipolar disorder, unspecified; Z20.822 Contact with and (suspected) exposure to COVID-19; Z87.891 Personal history of nicotine dependence; Z79.899 Other long term (current) drug therapy; Z88.0 Allergy status to penicillin; Z88.2 Allergy status to sulfonamides; Z88.5 Allergy status to narcotic agent; Z88.8 Allergy status to other drugs, medicaments and biological substances
CPT/HCPCS: 36415; 80053; 83690; 83735; 85025; 87636; 96360; 99284

== ENCOUNTER 2022-11-22 18:26 | Emergency (ER) | payer MEDICARE, BC ==
[2022-11-22 20:21] LABS: Basophils % (A) 0 %; Eosinophils # (A) 0.2 k/uL (0-0.7); Eosinophils % (A) 3 %; HCT 42.8 % (34.0-46.0); HGB 13.8 gm/dL (11.4-16.0); Lymphocytes # (A) 2.3 k/uL (1.0-4.8); Lymphocytes % (A) 25 %; MCH 28.9 pg (25.0-35.0); MCHC 32.2 g/dL (31.0-37.0); MCV 89.7 fL (80.0-100.0); Mean Platelet Volume 7.4; Monocytes # (A) 0.6 k/uL (0-1.0); Monocytes % (A) 6 %; Neutrophils % (A) 64 %; Platelet Count 235 k/uL (150-450); RBC 4.77 m/uL (3.80-5.40); RDW 15.4 % (11.5-15.5); WBC 9.4 k/uL (3.8-10.6)
[2022-11-22 20:29] LABS: ALT 28 U/L (4-34); AST 30 U/L (14-36); African American GFR (CKD) 67 (>60 ml/min/1.73 sqM); Albumin 3.4 g/dL (3.5-5.0); Alkaline Phosphatase 57 U/L (38-126); Anion Gap 9 mmol/L; Blood Urea Nitrogen 19 mg/dL (7-17); Calcium 10.1 mg/dL (8.4-10.2); Carbon Dioxide 25 mmol/L (22-30); Chloride 103 mmol/L (98-107); Glucose 103 mg/dL (74-99); Magnesium 1.5 mg/dL (1.6-2.3); Non-African American GFR(CKD) 58 (>60 ml/min/1.73 sqM); Potassium 3.8 mmol/L (3.5-5.1); Sodium 137 mmol/L (137-145); Total Bilirubin 0.7 mg/dL (0.2-1.3); Total Protein 6.1 g/dL (6.3-8.2)
[2022-11-22] MEDS ORDERED: MAGNESIUM OXIDE 400 MG TAB PO STA (20:53)
--- NOTE | 2022-11-22 20:55 | ED ---
General Adult HPI - General Chief complaint: Anxiety Stated complaint: Anxiety Time Seen by Provider: 11/22/22 18:53 Source: patient Mode of arrival: EMS Limitations: no limitations - History of Present Illness Initial comments: This patient is an 82-year-old woman who presents to have evaluation after she became lightheaded and then very anxious tonight. Patient also had episode of nausea followed by diarrhea when this occurred. She was concerned that she had recent abdominal surgery. No chest pain or dyspnea. No palpitations. Onset/Timin -: hour(s) Severity scale (1-10): 0 Consistency: constant Improves with: none Worsens with: none Associated Symptoms: syncope (Near syncope) Treatments Prior to Arrival: none - Related Data Home Medications Medication Instructions Recorded Confirmed Atorvastatin [Lipitor] 10 mg PO HS 12/17/16 11/24/22 rOPINIRole HCL [Requip] 1 mg PO BID 12/17/16 11/24/22 Apixaban [Eliquis] 5 mg PO BID 11/26/17 11/24/22 allopurinoL [Zyloprim] 100 mg PO DAILY 02/01/20 11/24/22 ALPRAZolam [Xanax] 0.25 mg PO DAILY PRN 10/31/22 11/24/22 Benzonatate [Tessalon Perles] 100 mg PO TID PRN 10/31/22 11/24/22 L.acidoph,Paracasei, B.lactis 1 cap PO DAILY 10/31/22 11/24/22 [Probiotic] Amiodarone [Cordarone] 200 mg PO DAILY 11/22/22 11/24/22 Losartan [Cozaar] 50 mg PO DAILY 11/22/22 11/24/22 Metoprolol Tartrate [Lopressor] 50 mg PO BID 11/22/22 11/24/22 Previous Rx's Medication Instructions Recorded Acetaminophen Tab [Tylenol] 650 mg PO Q6HR PRN tab 03/26/21 Cholecalciferol [Vitamin D3 (125 125 mcg PO DAILY 30 Days #30 tablet 03/26/21 Mcg = 5000 Iu)] Magnesium Oxide [Mag-Ox] 400 mg PO DAILY #30 tablet 11/22/22 amLODIPine [Norvasc] 10 mg PO HS #30 tab 11/26/22 Allergies Allergy/AdvReac Type Severity Reaction Status Date / Time amoxicillin [From Augmentin] Allergy Severe Verified 11/24/22 17:09 diarrhea banana Allergy Nausea & Verified 11/24/22 17:09 Vomiting & Diarrhea clavulanic acid Allergy Severe Verified 11/24/22 17:09 [From Augmentin] diarrhea codeine Allergy Nausea & Verified 11/24/22 17:09 Vomiting, hives/rash hydrocodone [From [place]] Allergy Rash/Hives Verified 11/24/22 17:09 morphine Allergy Nausea & Verified 11/24/22 17:09 Vomiting, rash/hives nitrofurantoin Allergy Unknown Verified 11/24/22 17:09 propoxyphene [From [place]] Allergy Nausea & Verified 11/24/22 17:09 Vomiting, rash/hives Sulfa (Sulfonamide Allergy Rash/Hives Verified 11/24/22 17:09 Antibiotics) aripiprazole [From Abilify] AdvReac severe, Verified 11/24/22 17:09 increased anxiety. bupropion [From Wellbutrin] AdvReac severe, Verified 11/24/22 17:09 increased anxiety. Review of Systems ROS Statement: Those systems with pertinent positive or pertinent negative responses have been documented in the HPI. ROS Other: All systems not noted in ROS Statement are negative. Constitutional: Denies: fever, weakness Eyes: Denies: vision change Respiratory: Denies: cough, dyspnea Cardiovascular: Reports: syncope (Near syncope). Denies: chest pain, palpitations, orthopnea Gastrointestinal: Reports: diarrhea. Denies: abdominal pain, nausea, vomiting, constipation, melena, hematochezia Genitourinary: Denies: dysuria Musculoskeletal: Denies: back pain Skin: Denies: rash Neurological: Denies: headache, weakness Psychiatric: Reports: anxiety Past Medical History Past Medical History: Atrial Fibrillation, Chest Pain / Angina, Heart Failure, CVA/TIA, GERD/Reflux, Hyperlipidemia, Hypertension, Osteoarthritis (OA), Sleep Apnea/CPAP/BIPAP Additional Past Medical History / Comment(s): Pulmonary fibrosis. Other hx: DDD, DJD, SPINAL STENOSIS, chronic bilateral hip pain worse on R side, 2018 septic arthritis R wrist, occluded carotid right artery, TIA x 2, RLS, seasonal allergies, KEVIN with CPAP USED, UTIs, diverticular dx, HAD GERD IN PAST NONE SINCE HIATAL HERNIA SX.,CARDIOMYOPATHY, murmur. PAST [employer] HISTORY: She has no history of STDs. History of Any Multi-Drug Resistant Organisms: None Reported Past Surgical History: Adenoidectomy, Appendectomy, Bladder Surgery, Cholecystectomy, Hysterectomy, Joint Replacement, Orthopedic Surgery, Tonsillectomy Additional Past Surgical History / Comment(s): bilateral hip replacments, R rotator cuff repair, vaginal hysterectomy with anterior and posterior repairs in 2001, sinus sx twice, niko cataracts-lens implants, hiatal hernia sx, bladder suspension, L breast bx-benign. Carotid surgery. Colonoscopy. Past Anesthesia/Blood Transfusion Reactions: No Reported Reaction, Motion Sickness Past Psychological History: Anxiety, Bipolar, Depression Smoking Status: Former smoker Past Alcohol Use History: None Reported Past Drug Use History: None Reported - Past Family History Mother Family Medical History: Cancer Additional Family Medical History / Comment(s): colon cancer Father Family Medical History: Congestive Heart Failure (CHF) Sister(s) Family Medical History: Cancer Additional Family Medical History / Comment(s): Breast cancer Daughter(s) Family Medical History: Cancer Additional Family Medical History / Comment(s): Cancer of the appendix. General Exam Limitations: no limitations General appearance: alert, in no apparent distress, anxious Head exam: Present: atraumatic, normocephalic Eye exam: Present: normal appearance. Absent: scleral icterus, conjunctival injection ENT exam: Present: normal oropharynx Neck exam: Present: normal inspection Respiratory exam: Present: normal lung sounds bilaterally. Absent: respiratory distress, wheezes, rales, rhonchi, stridor Cardiovascular Exam: Present: regular rate, normal rhythm, normal heart sounds. Absent: systolic murmur, diastolic murmur, rubs, gallop GI/Abdominal exam: Present: soft. Absent: distended, tenderness, guarding, rebound, rigid, mass Extremities exam: Present: normal inspection, normal capillary refill. Absent: pedal edema, calf tenderness Back exam: Present: normal inspection. Absent: CVA tenderness (R), CVA tenderness (L) Neurological exam: Present: alert Skin exam: Present: warm, dry, intact, normal color. Absent: rash Course Vital Signs 11/22/22 11/22/22 18:53 21:17 Temperature 97.2 F L 97.9 F Pulse Rate 56 L 59 L Respiratory 18 20 Rate Blood Pressure 184/96 173/81 O2 Sat by Pulse 98 96 Oximetry EKG Findings - EKG Results: EKG: interpreted by ERMD, sinus rhythm (Rate 60 bpm) - Blocks, [place], Hypertrophy, ST Abn: QRS axis and voltage: left axis deviation (-30 to -90) (Borderline left axis), low voltage (<0.5 MV total QRS and <1.0 MV in each precordial lead) Repolarization changes or abnormalities: nonspecific abnormality, ST segment, and/or T wave Medical Decision Making - Medical Decision Making Was pt. sent in by a medical professional or institution (, PA, TILE PRESSER, urgent care, hospital, or usp...) When possible be specific @ -[No] Did you speak to anyone other than the patient for history (EMS, parent, family, police, friend...)? What history was obtained from this source @ -[No] Did you review nursing and triage notes (agree or disagree)? Why? @ -[I reviewed and agree with nursing and triage notes] Were old charts reviewed (outside hosp., previous admission, EMS record, old EKG, old radiological studies, urgent care reports/EKG's, usp records)? Report findings @ -[No old charts were reviewed] Differential Diagnosis (chest pain, altered mental status, abdominal pain women, abdominal pain men, vaginal bleeding, weakness, fever, dyspnea, syncope, headache, dizziness, GI bleed, back pain, seizure, CVA, palpatations, mental health, musculoskeletal)? @ -[Differential Weakness: Differential Mental Health Depression, anxiety, bipolar, psychosis, schizophrenia, borderline personality, situational depression, adjustment disorder, behavioral disorder, brain tumor, malingering, substance abuse, encephalopathy, medication reaction, dementia, hypothyroidism, degenerative neurologic disorder, lupus.... This is not meant to be all-inclusive list EKG interpreted by me (3pts min.). @ -[I interpreted As above] X-rays interpreted by me (1pt min.). @ -[None done] CT interpreted by me (1pt min.). @ -[None done] U/S interpreted by me (1pt. min.). @ -[None done] What testing was considered but not performed or refused? (CT, X-rays, U/S, labs)? Why? @ -[None] What meds were considered but not given or refused? Why? @ -[None] Did you discuss the management of the patient with other professionals (professionals i.e. , PA, TILE PRESSER, lab, RT, psych nurse, social worker delinquency prevention, site operations manager, teacher, chief commercial officer, case management manager)? Give summary @ -[No] Was smoking cessation discussed for >3mins.? @ -[No] Was critical care preformed (if so, how long)? @ -[No] Were there social determinants of health that impacted care today? How? (Homelessness, low income, unemployed, alcoholism, drug addiction, transportation, low edu. Level, literacy, decrease access to med. care, assisted, rehab)? @ -[No] Was there de-escalation of care discussed even if they declined (Discuss DNR or withdrawal of care, Hospice)? DNR status @ -[No] What co-morbidities impacted this encounter? (DM, HTN, Smoking, COPD, CAD, Cancer, CVA, ARF, Chemo, Hep., AIDS, mental health diagnosis, sleep apnea, m orbid obesity)? @ -[None] Was patient admitted / discharged? Hospital course, mention meds given and route, prescriptions, significant lab abnormalities, going to OR and other pertinent info. @ -[The patient had lab evaluation here which did reveal some hypomagnesemia. Patient is feeling better following evaluation and stable for discharge with close follow-up. Discussed return parameters. Undiagnosed new problem with uncertain prognosis? @ -[No] Drug Therapy requiring intensive monitoring for toxicity (Heparin, Nitro, Insulin, Cardizem)? @ -[No] Were any procedures done? @ -[No] Diagnosis/symptom? @ -[Acute anxiety Acute near syncopal episode Hypomagnesemia, chronic Acute, or Chronic, or Acute on Chronic? @ -[Acute Uncomplicated (without systemic symptoms) or Complicated (systemic symptoms)? @ -[Uncomplicated Side effects of treatment? @ -[No] Exacerbation, Progression, or Severe Exacerbation? @ -[No] Poses a threat to life or bodily function? How? (Chest pain, [place], [place], pneumonia, PE, COPD, DKA, ARF, appy, cholecystitis, CVA, Diverticulitis, Homicidal, Suicidal, threat to staff... and all critical care pts) @ -[No] - Lab Data Result diagrams: 11/22/22 19:53 11/22/22 19:53 Lab Results 11/22/22 11/22/22 11/22/22 Range/Units 19:53 19:53 19:53 WBC 9.4 (3.8-10.6) k/uL RBC 4.77 (3.80-5.40) m/uL Hgb 13.8 (11.4-16.0) gm/dL Hct 42.8 (34.0-46.0) % MCV 89.7 (80.0-100.0) fL MCH 28.9 (25.0-35.0) pg MCHC 32.2 (31.0-37.0) g/dL RDW 15.4 (11.5-15.5) % Plt Count 235 (150-450) k/uL MPV 7.4 Neutrophils % 64 % Lymphocytes % 25 % Monocytes % 6 % Eosinophils % 3 % Basophils % 0 % Neutrophils # 6.0 (1.3-7.7) k/uL Lymphocytes # 2.3 (1.0-4.8) k/uL Monocytes # 0.6 (0-1.0) k/uL Eosinophils # 0.2 (0-0.7) k/uL Basophils # 0.0 (0-0.2) k/uL Sodium 137 (137-145) mmol/L Potassium 3.8 (3.5-5.1) mmol/L Chloride 103 (98-107) mmol/L Carbon Dioxide 25 (22-30) mmol/L Anion Gap 9 mmol/L BUN 19 H (7-17) mg/dL Creatinine 0.93 (0.52-1.04) mg/dL Est GFR (CKD-EPI)AfAm 67 (>60 ml/min/1.73 sqM) Est GFR (CKD-EPI)NonAf 58 (>60 ml/min/1.73 sqM) Glucose 103 H (74-99) mg/dL Plasma Lactic Acid Raphael 1.3 (0.7-2.0) mmol/L Calcium 10.1 (8.4-10.2) mg/dL Magnesium 1.5 L (1.6-2.3) mg/dL Total Bilirubin 0.7 (0.2-1.3) mg/dL AST 30 (14-36) U/L ALT 28 (4-34) U/L Alkaline Phosphatase 57 (38-126) U/L Troponin I (0.000-0.034) ng/mL Total Protein 6.1 L (6.3-8.2) g/dL Albumin 3.4 L (3.5-5.0) g/dL 11/22/22 Range/Units 19:53 WBC (3.8-10.6) k/uL RBC (3.80-5.40) m/uL Hgb (11.4-16.0) gm/dL Hct (34.0-46.0) % MCV (80.0-100.0) fL MCH (25.0-35.0) pg MCHC (31.0-37.0) g/dL RDW (11.5-15.5) % Plt Count (150-450) k/uL MPV Neutrophils % % Lymphocytes % % Monocytes % % Eosinophils % % Basophils % % Neutrophils # (1.3-7.7) k/uL Lymphocytes # (1.0-4.8) k/uL Monocytes # (0-1.0) k/uL Eosinophils # (0-0.7) k/uL Basophils # (0-0.2) k/uL Sodium (137-145) mmol/L Potassium (3.5-5.1) mmol/L Chloride (98-107) mmol/L Carbon Dioxide (22-30) mmol/L Anion Gap mmol/L BUN (7-17) mg/dL Creatinine (0.52-1.04) mg/dL Est GFR (CKD-EPI)AfAm (>60 ml/min/1.73 sqM) Est GFR (CKD-EPI)NonAf (>60 ml/min/1.73 sqM) Glucose (74-99) mg/dL Plasma Lactic Acid Raphael (0.7-2.0) mmol/L Calcium (8.4-10.2) mg/dL Magnesium (1.6-2.3) mg/dL Total Bilirubin (0.2-1.3) mg/dL AST (14-36) U/L ALT (4-34) U/L Alkaline Phosphatase (38-126) U/L Troponin I <0.012 (0.000-0.034) ng/mL Total Protein (6.3-8.2) g/dL Albumin (3.5-5.0) g/dL Disposition Clinical Impression: Near syncope, Hypomagnesemia Disposition: HOME SELF-CARE Instructions (If sedation given, give patient instructions): Generalized Anxiety Disorder (ED) Prescriptions: Magnesium Oxide [Mag-Ox] 400 mg PO DAILY #30 tablet Is patient prescribed a controlled substance at d/c from ED?: No Referrals: Lan Wallace MD [Primary Care Provider] - 1-2 days
[2022-11-22 21:34] VITALS: BP 173/81; PULSE 59; RESP 20; TEMP 97.9
== END 2022-11-22 21:25 | disposition home or self-care (01) ==
LOC: EC 18:26
DX: E83.42 Hypomagnesemia (principal); R55 Syncope and collapse; I11.0 Hypertensive heart disease with heart failure; I50.9 Heart failure, unspecified; I48.91 Unspecified atrial fibrillation; K21.9 Gastro-esophageal reflux disease without esophagitis; E78.5 Hyperlipidemia, unspecified; Z90.49 Acquired absence of other specified parts of digestive tract; F31.9 Bipolar disorder, unspecified; F41.9 Anxiety disorder, unspecified; Z86.73 Personal history of transient ischemic attack (TIA), and cerebral infarction without residual deficits; Z87.891 Personal history of nicotine dependence; M19.90 Unspecified osteoarthritis, unspecified site; Z79.01 Long term (current) use of anticoagulants; Z79.899 Other long term (current) drug therapy; Z88.0 Allergy status to penicillin; Z88.1 Allergy status to other antibiotic agents; Z88.2 Allergy status to sulfonamides; Z88.5 Allergy status to narcotic agent; Z91.018 Allergy to other foods; Z88.8 Allergy status to other drugs, medicaments and biological substances
CPT/HCPCS: 36415; 80053; 83605; 83735; 84484; 85025; 93005; 99284

== ENCOUNTER 2022-11-24 12:36 | Observation (INO) | payer MEDICARE, BC ==
[2022-11-24] MEDS ORDERED: SODIUM CHLORIDE 0.9% 1,000 ML IV STA (12:53)
[2022-11-24 13:05] LABS: Basophils % (A) 0 %; Eosinophils # (A) 0.3 k/uL (0-0.7); Eosinophils % (A) 3 %; HCT 44.1 % (34.0-46.0); HGB 14.2 gm/dL (11.4-16.0); Lymphocytes # (A) 2.2 k/uL (1.0-4.8); Lymphocytes % (A) 22 %; MCH 28.9 pg (25.0-35.0); MCHC 32.3 g/dL (31.0-37.0); MCV 89.5 fL (80.0-100.0); Mean Platelet Volume 7.2; Monocytes # (A) 0.5 k/uL (0-1.0); Monocytes % (A) 5 %; Neutrophils # (A) 6.6 k/uL (1.3-7.7); Neutrophils % (A) 68 %; Platelet Count 233 k/uL (150-450); RBC 4.93 m/uL (3.80-5.40); RDW 15.7 % (11.5-15.5); WBC 9.8 k/uL (3.8-10.6)
--- NOTE | 2022-11-24 13:06 | ED ---
General Adult HPI - General Chief complaint: Syncope Stated complaint: Syncope Time Seen by Provider: 11/24/22 12:40 Source: EMS Mode of arrival: EMS Limitations: no limitations - History of Present Illness Initial comments: 82-year-old female brought into the emergency room for syncope. It is reported the patient was at [facility] with her sister who was getting of vaccine. She was sitting in a seat when she went unresponsive. Pharmacist was immediately available. States the patient continued breathing. There was no loss of pulse. He lowered her to the floor. She was out for approximately 30 seconds before she came to. EMS transported the patient to the hospital. She was reporting extreme nausea and therefore she was given 4 mg of Zofran. Patient has been suffering from nausea with poor oral intake since she had bowel surgery by Dr. Michel last month due to high grade bowel obstruction. Patient notably also has high blood pressure. Reports that her addictions counselor has been adjusting her medications due to her high blood pressure. She denies any headaches or visual changes. No chest pain or shortness of breath. She denies any abdominal pain. Admits to diarrhea. No black or bloody stools. No other alleviating, precipitating or modifying factors - Related Data Home Medications Medication Instructions Recorded Confirmed Atorvastatin [Lipitor] 10 mg PO HS 12/17/16 11/24/22 Escitalopram [Lexapro] 20 mg PO DAILY 12/17/16 11/24/22 Famotidine 40 mg PO DAILY 12/17/16 11/24/22 rOPINIRole HCL [Requip] 1 mg PO BID 12/17/16 11/24/22 Apixaban [Eliquis] 5 mg PO BID 11/26/17 11/24/22 allopurinoL [Zyloprim] 100 mg PO DAILY 02/01/20 11/24/22 ALPRAZolam [Xanax] 0.25 mg PO DAILY PRN 10/31/22 11/24/22 Benzonatate [Tessalon Perles] 100 mg PO TID PRN 10/31/22 11/24/22 L.acidoph,Paracasei, B.lactis 1 cap PO DAILY 10/31/22 11/24/22 [Probiotic] Amiodarone [Cordarone] 200 mg PO DAILY 11/22/22 11/24/22 Losartan [Cozaar] 50 mg PO DAILY 11/22/22 11/24/22 Metoprolol Tartrate [Lopressor] 50 mg PO BID 11/22/22 11/24/22 Previous Rx's Medication Instructions Recorded Acetaminophen Tab [Tylenol] 650 mg PO Q6HR PRN tab 03/26/21 Cholecalciferol [Vitamin D3 (125 125 mcg PO DAILY 30 Days #30 tablet 03/26/21 Mcg = 5000 Iu)] Magnesium Oxide [Mag-Ox] 400 mg PO DAILY #30 tablet 11/22/22 Allergies Allergy/AdvReac Type Severity Reaction Status Date / Time amoxicillin [From Augmentin] Allergy Severe Verified 11/24/22 17:09 diarrhea banana Allergy Nausea & Verified 11/24/22 17:09 Vomiting & Diarrhea clavulanic acid Allergy Severe Verified 11/24/22 17:09 [From Augmentin] diarrhea codeine Allergy Nausea & Verified 11/24/22 17:09 Vomiting, hives/rash hydrocodone [From [place]] Allergy Rash/Hives Verified 11/24/22 17:09 morphine Allergy Nausea & Verified 11/24/22 17:09 Vomiting, rash/hives nitrofurantoin Allergy Unknown Verified 11/24/22 17:09 propoxyphene [From [place]] Allergy Nausea & Verified 11/24/22 17:09 Vomiting, rash/hives Sulfa (Sulfonamide Allergy Rash/Hives Verified 11/24/22 17:09 Antibiotics) aripiprazole [From Abilify] AdvReac severe, Verified 11/24/22 17:09 increased anxiety. bupropion [From Wellbutrin] AdvReac severe, Verified 11/24/22 17:09 increased anxiety. Review of Systems ROS Statement: Those systems with pertinent positive or pertinent negative responses have been documented in the HPI. ROS Other: All systems not noted in ROS Statement are negative. Past Medical History Past Medical History: Atrial Fibrillation, Chest Pain / Angina, Heart Failure, CVA/TIA, GERD/Reflux, Hyperlipidemia, Hypertension, Osteoarthritis (OA), Sleep Apnea/CPAP/BIPAP Additional Past Medical History / Comment(s): Pulmonary fibrosis. Other hx: DDD, DJD, SPINAL STENOSIS, chronic bilateral hip pain worse on R side, 2018 septic arthritis R wrist, occluded carotid right artery, TIA x 2, RLS, seasonal allergies, KEVIN with CPAP USED, UTIs, diverticular dx, HAD GERD IN PAST NONE SINCE HIATAL HERNIA SX.,CARDIOMYOPATHY, murmur. PAST TAR HEATER HISTORY: She has no history of STDs. History of Any Multi-Drug Resistant Organisms: None Reported Past Surgical History: Adenoidectomy, Appendectomy, Bladder Surgery, Cholecystectomy, Hysterectomy, Joint Replacement, Orthopedic Surgery, Tonsillectomy Additional Past Surgical History / Comment(s): bilateral hip replacments, R rotator cuff repair, vaginal hysterectomy with anterior and posterior repairs in 2001, sinus sx twice, niko cataracts-lens implants, hiatal hernia sx, bladder suspension, L breast bx-benign. Carotid surgery. Colonoscopy. Past Anesthesia/Blood Transfusion Reactions: No Reported Reaction, Motion Sickness Past Psychological History: Anxiety, Bipolar, Depression Smoking Status: Former smoker Past Alcohol Use History: None Reported Past Drug Use History: None Reported - Past Family History Mother Family Medical History: Cancer Additional Family Medical History / Comment(s): colon cancer Father Family Medical History: Congestive Heart Failure (CHF) Sister(s) Family Medical History: Cancer Additional Family Medical History / Comment(s): Breast cancer Daughter(s) Family Medical History: Cancer Additional Family Medical History / Comment(s): Cancer of the appendix. General Exam Limitations: no limitations General appearance: alert, in no apparent distress Head exam: Present: atraumatic, normocephalic, normal inspection Eye exam: Present: normal appearance, PERRL, EOMI. Absent: scleral icterus, conjunctival injection, periorbital swelling ENT exam: Present: normal exam, mucous membranes moist Neck exam: Present: normal inspection. Absent: tenderness, meningismus, lymphadenopathy Respiratory exam: Present: normal lung sounds bilaterally. Absent: respiratory distress, wheezes, rales, rhonchi, stridor Cardiovascular Exam: Present: regular rate, normal rhythm, normal heart sounds. Absent: systolic murmur, diastolic murmur, rubs, gallop, clicks GI/Abdominal exam: Present: soft, normal bowel sounds. Absent: distended, tenderness, guarding, rebound, rigid Extremities exam: Present: normal inspection, full ROM, normal capillary refill. Absent: tenderness, pedal edema, joint swelling, calf tenderness Back exam: Present: normal inspection Neurological exam: Present: alert, oriented X3, CN II-XII intact Psychiatric exam: Present: normal affect, normal mood Skin exam: Present: warm, dry, intact, normal color. Absent: rash Course Vital Signs 11/24/22 11/24/22 11/24/22 12:39 14:54 16:58 Temperature 98.8 F Pulse Rate 55 L 62 65 Respiratory 20 22 18 Rate Blood Pressure 191/99 162/93 172/92 O2 Sat by Pulse 99 99 95 Oximetry 11/24/22 18:03 Temperature Pulse Rate 70 Respiratory 18 Rate Blood Pressure 127/69 O2 Sat by Pulse 95 Oximetry Medical Decision Making - Medical Decision Making Was pt. sent in by a medical professional or institution (, PA, TURPENTINE FARMER, urgent care, hospital, or custodial...) When possible be specific @ -No Did you speak to anyone other than the patient for history (EMS, parent, family, police, friend...)? What history was obtained from this source @ -EMS and the patient's son Did you review nursing and triage notes (agree or disagree)? Why? @ -I reviewed and agree with nursing and triage notes Were old charts reviewed (outside hosp., previous admission, EMS record, old EKG, old radiological studies, urgent care reports/EKG's, custodial records)? Report findings @ -I reviewed the patient's record from last month where she was hospitalized for a bowel obstruction Differential Diagnosis (chest pain, altered mental status, abdominal pain women, abdominal pain men, vaginal bleeding, weakness, fever, dyspnea, syncope, headache, dizziness, GI bleed, back pain, seizure, CVA, palpatations, mental health, musculoskeletal)? @ -Differential Syncope: Valvular disease, hypertrophic cardiomyopathy, pulmonary embolism, tamponade, tachycardia, bradycardia, MS, hypovolemia, hemorrhage, dissection, anemia, intracranial hemorrhage, seizure, hypoglycemia, carbon monoxide poisoning, this is not meant to be an all-inclusive list. EKG interpreted by me (3pts min.). @ -Yes and demonstrates sinus bradycardia with a rate of 54. MS interval 141. QRS 89. QTC of 471. No acute ST segment elevations or depressions. No signs of high agree block X-rays interpreted by me (1pt min.). @ -Yes and demonstrates no obstructive process CT interpreted by me (1pt min.). @ -None done U/S interpreted by me (1pt. min.). @ -None done What testing was considered but not performed or refused? (CT, X-rays, U/S, labs)? Why? @ -None What meds were considered but not given or refused? Why? @ -None Did you discuss the management of the patient with other professionals (professionals i.e. , PA, TURPENTINE FARMER, lab, RT, psych nurse, director of social media marketing, road passenger firer, teacher, conservation enforcement officer, manager case)? Give summary @ -Spoke with Dr. Guzman who agreed to admit the patient Was smoking cessation discussed for >3mins.? @ -No Was critical care preformed (if so, how long)? @ -No Were there social determinants of health that impacted care today? How? (Homelessness, low income, unemployed, alcoholism, drug addiction, transportation, low edu. Level, literacy, decrease access to med. care, [facility], rehab)? @ -No Was there de-escalation of care discussed even if they declined (Discuss DNR or withdrawal of care, Hospice)? DNR status @ -No What co-morbidities impacted this encounter? (DM, HTN, Smoking, COPD, CAD, Cancer, CVA, ARF, Chemo, Hep., AIDS, mental health diagnosis, sleep apnea, morbid obesity)? @ -Recent bowel obstruction Was patient admitted / discharged? Hospital course, mention meds given and route, prescriptions, significant lab abnormalities, going to OR and other pertinent info. @ -Admitted. Upon arrival the patient is placed into room 6. Thorough history and physical exam is performed. Patient had been given Zofran by EMS. She continues to report nausea and therefore she was given 25 mg of Benadryl and 10 mg of Reglan. Laboratory studies are conducted. Patient has a 12-lead EKG performed. She remained on pulse oximetry and cardiac monitoring. Chest and abdominal x-ray are performed. Patient continues to have elevated blood pressures. Her nausea has improved. I did discuss results with the patient. Did recommend admission for surgery and cardiology consultation due to accelerated hypertension, syncope and nausea and vomiting. Patient was agreeable to this. I called and spoke with Dr. Guzman who agreed to admit the patient. Undiagnosed new problem with uncertain prognosis? @ -Yes Drug Therapy requiring intensive monitoring for toxicity (Heparin, Nitro, Insulin, Cardizem)? @ -No Were any procedures done? @ -No Diagnosis/symptom? @ -Acute syncope, acute nausea and vomiting, acute hypomagnesemia, recent bowel resection Acute, or Chronic, or Acute on Chronic? @ -Acute Uncomplicated (without systemic symptoms) or Complicated (systemic symptoms)? @ -Complicated Side effects of treatment? @ -No Exacerbation, Progression, or Severe Exacerbation? @ -No Poses a threat to life or bodily function? How? (Chest pain, USA, MS, pneumonia, PE, COPD, DKA, ARF, appy, cholecystitis, CVA, Diverticulitis, Homicidal, Suicidal, threat to staff... and all critical care pts) @ -No - Lab Data Result diagrams: 11/24/22 12:58 11/24/22 12:58 Lab Results 11/24/22 11/24/22 11/24/22 Range/Units 12:58 12:58 12:58 WBC 9.8 (3.8-10.6) k/uL RBC 4.93 (3.80-5.40) m/uL Hgb 14.2 (11.4-16.0) gm/dL Hct 44.1 (34.0-46.0) % MCV 89.5 (80.0-100.0) fL MCH 28.9 (25.0-35.0) pg MCHC 32.3 (31.0-37.0) g/dL RDW 15.7 H (11.5-15.5) % Plt Count 233 (150-450) k/uL MPV 7.2 Neutrophils % 68 % Lymphocytes % 22 % Monocytes % 5 % Eosinophils % 3 % Basophils % 0 % Neutrophils # 6.6 (1.3-7.7) k/uL Lymphocytes # 2.2 (1.0-4.8) k/uL Monocytes # 0.5 (0-1.0) k/uL Eosinophils # 0.3 (0-0.7) k/uL Basophils # 0.0 (0-0.2) k/uL PT 12.0 (10.0-12.5) sec INR 1.1 (<1.2) APTT 24.5 (22.0-30.0) sec Sodium (137-145) mmol/L Potassium (3.5-5.1) mmol/L Chloride (98-107) mmol/L Carbon Dioxide (22-30) mmol/L Anion Gap mmol/L BUN (7-17) mg/dL Creatinine (0.52-1.04) mg/dL Est GFR (CKD-EPI)AfAm (>60 ml/min/1.73 sqM) Est GFR (CKD-EPI)NonAf (>60 ml/min/1.73 sqM) Glucose (74-99) mg/dL Calcium (8.4-10.2) mg/dL Magnesium (1.6-2.3) mg/dL Total Bilirubin (0.2-1.3) mg/dL AST (14-36) U/L ALT (4-34) U/L Alkaline Phosphatase (38-126) U/L Troponin I (0.000-0.034) ng/mL Total Protein (6.3-8.2) g/dL Albumin (3.5-5.0) g/dL Urine Color Colorless Urine Appearance Clear (Clear) Urine pH 6.0 (5.0-8.0) Ur Specific [place] 1.008 (1.001-1.035) Urine Protein Negative (Negative) Urine Glucose (UA) Negative (Negative) Urine Ketones Negative (Negative) Urine Blood Negative (Negative) Urine Nitrite Negative (Negative) Urine Bilirubin Negative (Negative) Urine Urobilinogen <2.0 (<2.0) mg/dL Ur Leukocyte Esterase Negative (Negative) 11/24/22 11/24/22 Range/Units 12:58 12:58 WBC (3.8-10.6) k/uL RBC (3.80-5.40) m/uL Hgb (11.4-16.0) gm/dL Hct (34.0-46.0) % MCV (80.0-100.0) fL MCH (25.0-35.0) pg MCHC (31.0-37.0) g/dL RDW (11.5-15.5) % Plt Count (150-450) k/uL MPV Neutrophils % % Lymphocytes % % Monocytes % % Eosinophils % % Basophils % % Neutrophils # (1.3-7.7) k/uL Lymphocytes # (1.0-4.8) k/uL Monocytes # (0-1.0) k/uL Eosinophils # (0-0.7) k/uL Basophils # (0-0.2) k/uL PT (10.0-12.5) sec INR (<1.2) APTT (22.0-30.0) sec Sodium 137 (137-145) mmol/L Potassium 3.9 (3.5-5.1) mmol/L Chloride 104 (98-107) mmol/L Carbon Dioxide 24 (22-30) mmol/L Anion Gap 9 mmol/L BUN 18 H (7-17) mg/dL Creatinine 0.89 (0.52-1.04) mg/dL Est GFR (CKD-EPI)AfAm 70 (>60 ml/min/1.73 sqM) Est GFR (CKD-EPI)NonAf 61 (>60 ml/min/1.73 sqM) Glucose 134 H (74-99) mg/dL Calcium 10.1 (8.4-10.2) mg/dL Magnesium 1.6 (1.6-2.3) mg/dL Total Bilirubin 0.6 (0.2-1.3) mg/dL AST 24 (14-36) U/L ALT 25 (4-34) U/L Alkaline Phosphatase 51 (38-126) U/L Troponin I <0.012 (0.000-0.034) ng/mL Total Protein 6.0 L (6.3-8.2) g/dL Albumin 3.3 L (3.5-5.0) g/dL Urine Color Urine Appearance (Clear) Urine pH (5.0-8.0) Ur Specific [place] (1.001-1.035) Urine Protein (Negative) Urine Glucose (UA) (Negative) Urine Ketones (Negative) Urine Blood (Negative) Urine Nitrite (Negative) Urine Bilirubin (Negative) Urine Urobilinogen (<2.0) mg/dL Ur Leukocyte Esterase (Negative) Disposition Clinical Impression: Syncope, Nausea and vomiting, Accelerated hypertension Disposition: ADMITTED IP TO THIS [facility] Condition: Stable Is patient prescribed a controlled substance at d/c from ED?: No Time of Disposition: 16:38 Decision to Admit Reason: Admit from EC Decision Date: 11/24/22 Decision Time: 16:38
[2022-11-24 13:24] LABS: ALT 25 U/L (4-34); AST 24 U/L (14-36); African American GFR (CKD) 70 (>60 ml/min/1.73 sqM); Albumin 3.3 g/dL (3.5-5.0); Alkaline Phosphatase 51 U/L (38-126); Anion Gap 9 mmol/L; Blood Urea Nitrogen 18 mg/dL (7-17); Calcium 10.1 mg/dL (8.4-10.2); Carbon Dioxide 24 mmol/L (22-30); Chloride 104 mmol/L (98-107); Glucose 134 mg/dL (74-99); Magnesium 1.6 mg/dL (1.6-2.3); Non-African American GFR(CKD) 61 (>60 ml/min/1.73 sqM); Potassium 3.9 mmol/L (3.5-5.1); Sodium 137 mmol/L (137-145); Total Bilirubin 0.6 mg/dL (0.2-1.3)
[2022-11-24 13:26] LABS: INR 1.1 (<1.2); Partial Thromboplastin Time 24.5 sec (22.0-30.0)
[2022-11-24] MEDS ORDERED: diphenhydrAMINE 50 MG/ML 1 ML VIAL IVP STA (14:50)
[2022-11-24] MEDS ORDERED: METOCLOPRAMIDE 5 MG/ML 2 ML VIAL IVP STA (14:50)
[2022-11-24 15:18] LABS: Appearance,Urine Clear (Clear); Bilirubin,Urine Negative (Negative); Blood,Urine Negative (Negative); Color,Urine Colorless; Glucose,Urine (UA) Negative (Negative); Ketones,Urine Negative (Negative); Leukocyte Esterase,Urine Negative (Negative); Nitrite,Urine Negative (Negative); Protein,Urine Negative (Negative); Specific Gravity,Urine 1.008 (1.001-1.035); Urobilinogen,Urine <2.0 mg/dL (<2.0)
--- NOTE | 2022-11-24 16:28 | XR ---
EXAMINATION TYPE: XR chest 2V DATE OF EXAM: 11/24/2022 3:11 PM CLINICAL INDICATION:Female, 82 years old with history of Cough/pain; [facility] COMPARISON: 11/03/2022 TECHNIQUE: XR chest 2V Frontal and lateral views of the chest. FINDINGS: Lines/Tubes: No indwelling lines are seen. Lungs/Pleura: There is no evidence of pleural effusion, focal consolidation, or pneumothorax. Similar prominent interstitial lung markings, likely chronic changes. Small strandy opacity towards the left lung base. Pulmonary vascularity: Unremarkable. Heart/mediastinum: Heart is mildly enlarged. Mildly tortuous aorta. Musculoskeletal: No acute osseous pathology. Osteopenia. Mild/moderate degenerative changes of the sh oulders and spine with slight exaggerated thoracic kyphosis. Other findings: Surgical clips in the upper abdomen. IMPRESSION: Small strandy opacity towards the left lung base, may represent subsegmental atelectasis with early i nfiltrate not excluded. Otherwise no acute cardiopulmonary disease/process.
--- NOTE | 2022-11-24 16:30 | XR ---
EXAMINATION TYPE: XR KUB DATE OF EXAM: 11/24/2022 3:11 PM CLINICAL INDICATION:Female, 82 years old with history of syncope; [facility] COMPARISON: None. TECHNIQUE: One radiographic view of the abdomen was obtained. FINDINGS: The bowel gas pattern is nonspecific without dilated loops of small or large bowel. Fecal m aterial and gas are demonstrated throughout the colon and rectum. There is no evidence for organomegaly or pneumoperitoneum on this supine view. The osseous structure s appear grossly intact with degenerative changes of the spine. Bilateral total hip arthroplasties. N o abnormal calcifications are present. Clips in the right upper quadrant likely from cholecystectomy. IMPRESSION: Nonspecific bowel gas pattern without radiographic evidence for acute process.
[2022-11-24] MEDS ORDERED: ONDANSETRON 4 MG/2 ML VIAL IVP PRN (16:38)
[2022-11-24] MEDS ORDERED: ACETAMINOPHEN TAB 325 MG TAB PO PRN (16:38)
[2022-11-24] MEDS ORDERED: NALOXONE 0.4 MG/ML 1 ML VIAL IV PRN (16:38)
[2022-11-24] MEDS ORDERED: TRIMETHOBENZAMIDE 100 MG/ML 2 ML VIAL IM PRN (16:44)
--- NOTE | 2022-11-24 17:13 | P.HPIM ---
History of Present Illness H&P Date: 11/24/22 82-year-old female with PMH of CAD, hypertension, dyslipidemia, paroxysmal atrial fibrillation, pulmonary fibrosis, KEVIN presents to the ED after syncopal episode. Of note, she recently underwent exploratory laparotomy with lysis of adhesions by Dr. ghotra for small bowel obstruction. Her hospital course at that time was complicated with atrial fibrillation with RVR. Since her discharge, patient reports decreased oral intake and constant nausea and dry heaving. Today, she was at [facility] when she started experiencing nausea and dry heaving which led to lightheadedness and eventually syncopal episode. She slumped down into a chair and was unconscious for approximately 30 seconds. EMS was called for this reason. She denies any headache, lower extremity edema, fever or chills, cough, chest pain, shortness of breath, palpitations, changes in urination. She does report some bouts of diarrhea since her surgery. No changes in appetite or weight. She denies any dizziness, numbness/weakness/tingling of the extremities. In the ED, she was noted to be hypertensive with BP of 191/99. She was bradycardic with heart rate in the 50s. CBC and coagulation panel was benign. CMP showed BUN of 18, glucose of 134 and albumin of 3.3. Troponin less than 0.012. Urinalysis negative. EKG showed sinus bradycardia with prolonged QT interval. Chest x-ray showed strandy opacity in the left lung base atelectasis versus infiltrate. KUB showed no acute process. Patient is admitted for workup of syncope. General: non toxic, no distress, appears at stated age Derm: warm, dry Head: atraumatic, normocephalic, symmetric Eyes: EOMI, no lid lag, anicteric sclera Mouth: no lip lesion, mucus membranes moist Cardiovascular: Irregularly irregular, no murmur Lungs: CTA bilateral, no rhonchi, no rales , no accessory muscle use Abdominal: soft, nontender to palpation, no guarding, no appreciable organomegaly Ext: no gross muscle atrophy, no edema, no contractures Neuro: no focal neuro deficits Psych: Alert, oriented, appropriate affect Syncopal episode Hypertensive urgency Nausea and vomiting Chronic conditions: CAD, hypertension, dyslipidemia, paroxysmal atrial fibrillation, pulmonary fibrosis, KEVIN Based on my assessment of this patient, this patient meets a high complexity lev el of care. Patient has an acute diagnosis of syncope that poses a threat to life or bodily function. Syncopal episode: Trend Trop/EKG to rule out ACS. Obtain orthostats. Echocardiogram. Telemetry monitoring. Cardiology consulted. Hypertensive urgency: Losartan 50 mg PO QD. Metoprolol 50 mg PO BID. Sinus bradycardia with prolonged QTc: Avoid Reglan and Zofran. DC Lexapro and Pepcid. Hold Amiodarone due to bradycardia and prolonged QTc. Nausea and vomiting: Caution with Reglan and Zofran due to prolonged QTc. Prefer Tigan only if absolutely needed. Surgery consulted. Eliquis for DVT prophylaxis. FULL CODE. I have reviewed the following wedding consultant notes: I have reviewed the results of the following tests: CBC, CMP, Trop, UA, KUB, CXR. I have ordered the following tests: Repeat EKG tomorrow AM. Echocardiogram. Troponin. I have discussed the care of this patient with the following independent historian: I have independently interpreted the following test below: EKG as above. I have discussed the management of this patient with the following physician: Discussed with Dr. Robles as above. Past Medical History Past Medical History: Atrial Fibrillation, Chest Pain / Angina, Heart Failure, CVA/TIA, GERD/Reflux, Hyperlipidemia, Hypertension, Osteoarthritis (OA), Sleep Apnea/CPAP/BIPAP Additional Past Medical History / Comment(s): Pulmonary fibrosis. Other hx: DDD, DJD, SPINAL STENOSIS, chronic bilateral hip pain worse on R side, 2018 septic arthritis R wrist, occluded carotid right artery, TIA x 2, RLS, seasonal allergies, KEVIN with CPAP USED, UTIs, diverticular dx, HAD GERD IN PAST NONE SINCE HIATAL HERNIA SX.,CARDIOMYOPATHY, murmur. 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 History of Any Multi-Drug Resistant Organisms: None Reported Past Surgical History: Adenoidectomy, Appendectomy, Bladder Surgery, Cholecystectomy, Hysterectomy, Joint Replacement, Orthopedic Surgery, Tonsillectomy Additional Past Surgical History / Comment(s): bilateral hip replacments, R rotator cuff repair, vaginal hysterectomy with anterior and posterior repairs in 2001, sinus sx twice, niko cataracts-lens implants, hiatal hernia sx, bladder saray pension, L breast bx-benign. Carotid surgery. Colonoscopy. Past Anesthesia/Blood Transfusion Reactions: No Reported Reaction, Motion Sickness Past Psychological History: Anxiety, Bipolar, Depression Smoking Status: Former smoker Past Alcohol Use History: None Reported Past Drug Use History: None Reported - Past Family History Mother Family Medical History: Cancer Additional Family Medical History / Comment(s): colon cancer Father Family Medical History: Congestive Heart Failure (CHF) Sister(s) Family Medical History: Cancer Additional Family Medical History / Comment(s): Breast cancer Daughter(s) Family Medical History: Cancer Additional Family Medical History / Comment(s): Cancer of the appendix. Medications and Allergies Home Medications Medication Instructions Recorded Confirmed Type Atorvastatin [Lipitor] 10 mg PO HS 12/17/16 11/22/22 History Escitalopram [Lexapro] 20 mg PO DAILY 12/17/16 11/22/22 History Famotidine 40 mg PO DAILY 12/17/16 11/22/22 History rOPINIRole HCL [Requip] 1 mg PO BID 12/17/16 11/22/22 History Apixaban [Eliquis] 5 mg PO BID 11/26/17 11/22/22 History allopurinoL [Zyloprim] 100 mg PO DAILY 02/01/20 11/22/22 History Acetaminophen Tab [Tylenol] 650 mg PO Q6HR PRN tab 03/26/21 11/22/22 Rx Cholecalciferol [Vitamin D3 (125 125 mcg PO DAILY 30 Days #30 tablet 03/26/21 11/22/22 Rx Mcg = 5000 Iu)] ALPRAZolam [Xanax] 0.25 mg PO DAILY PRN 10/31/22 11/22/22 History Benzonatate [Tessalon Perles] 100 mg PO TID PRN 10/31/22 11/22/22 History L.acidoph,Paracasei, B.lactis 1 cap PO DAILY 10/31/22 11/22/22 History [Probiotic] Amiodarone [Cordarone] 200 mg PO DAILY 11/22/22 11/22/22 History Losartan [Cozaar] 50 mg PO DAILY 11/22/22 11/22/22 History Magnesium Oxide [Mag-Ox] 400 mg PO DAILY #30 tablet 11/22/22 Rx Metoprolol Tartrate [Lopressor] 50 mg PO BID 11/22/22 11/22/22 History Allergies Allergy/AdvReac Type Severity Reaction Status Date / Time amoxicillin [From Augmentin] Allergy Severe Verified 11/24/22 17:09 diarrhea banana Allergy Nausea & Verified 11/24/22 17:09 Vomiting & Diarrhea clavulanic acid Allergy Severe Verified 11/24/22 17:09 [From Augmentin] diarrhea codeine Allergy Nausea & Verified 11/24/22 17:09 Vomiting, hives/rash hydrocodone [From [place]] Allergy Rash/Hives Verified 11/24/22 17:09 morphine Allergy Nausea & Verified 11/24/22 17:09 Vomiting, rash/hives nitrofurantoin Allergy Unknown Verified 11/24/22 17:09 propoxyphene [From Darvon] Allergy Nausea & Verified 11/24/22 17:09 Vomiting, rash/hives Sulfa (Sulfonamide Allergy Rash/Hives Verified 11/24/22 17:09 Antibiotics) aripiprazole [From Abilify] AdvReac severe, Verified 11/24/22 17:09 increased anxiety. bupropion [From Wellbutrin] AdvReac severe, Verified 11/24/22 17:09 increased anxiety. Physical Exam Vitals: Vital Signs Temp Pulse Resp BP Pulse Ox 11/24/22 14:54 62 22 162/93 99 11/24/22 12:39 98.8 F 55 L 20 191/99 99 Intake and Output 11/24/22 11/24/22 11/24/22 06:59 14:59 22:59 Other: Weight 61.235 kg Results CBC & Chem 7: 11/24/22 12:58 11/24/22 12:58 Labs: Abnormal Lab Results - Last 24 Hours (Table) 11/24/22 11/24/22 Range/Units 12:58 12:58 RDW 15.7 H (11.5-15.5) % BUN 18 H (7-17) mg/dL Glucose 134 H (74-99) mg/dL Total Protein 6.0 L (6.3-8.2) g/dL Albumin 3.3 L (3.5-5.0) g/dL
[2022-11-24] MEDS: MAGNESIUM SULFATE-D5W PMX 1 GM in DEXTROSE/WATER 1 100ML.BAG IVPB SCH ×2 (18:09→19:29)
[2022-11-24] MEDS: SODIUM CHLORIDE 0.9% 1,000 ML IV SCH (18:09)
[2022-11-24] MEDS: METOPROLOL TARTRATE 50 MG TAB PO SCH (21:38)
[2022-11-24] MEDS: ATORVASTATIN 10 MG TAB PO SCH (21:38)
[2022-11-24] MEDS: APIXABAN 5 MG TAB PO SCH (21:39)
[2022-11-25] MEDS ORDERED: ALPRAZolam 0.25 MG TAB PO STA (00:45)
[2022-11-25] MEDS ORDERED: hydrALAZINE HCL 20 MG/ML 1 ML VIAL IVP STA (00:45)
[2022-11-25] MEDS: SODIUM CHLORIDE 0.9% 1,000 ML IV SCH (05:38)
[2022-11-25] MEDS: LOSARTAN 50 MG TAB PO SCH (08:46)
[2022-11-25] MEDS: METOPROLOL TARTRATE 50 MG TAB PO SCH ×2 (08:46→20:45)
[2022-11-25] MEDS: APIXABAN 5 MG TAB PO SCH ×2 (08:46→20:45)
[2022-11-25] MEDS: AMIODARONE 200 MG TAB PO SCH (09:56)
--- NOTE | 2022-11-25 11:26 | CT ---
CT CHEST FOR PULMONARY EMBOLISM. EXAMINATION TYPE: CT chest angio for PE DATE OF EXAM: 11/25/2022 INDICATION: Elevated d-dimer CT DLP: 169.40 mGycm, Automated exposure control for dose reduction was used. CONTRAST: Patient injected with 60 mL of Isovue 370. COMPARISON: None TECHNIQUE: CT of the chest is performed on a spiral scan at 2 mm thick sections. Study is performed with intravenous contrast timed for evaluation for pulmonary embolism. This will limit additional po rtions of the evaluation. 3-D MIP images reconstructed by the technologist are reviewed on the compu ter in the coronal and sagittal planes. FINDINGS: No persistent filling defects are evident to suggest an acute pulmonary embolism. No mediastinal or hilar adenopathy enlarged by CT criteria is evident. The ascending aorta diameter at the level of the main pulmonary artery is 3.1 cm. The main pulmonary artery diameter at the bifur cation is 2.8 cm. Some pulmonary fibrosis is in the upper outer left lung. Emphysematous changes are present bilaterall y. Some peripheral pulmonary fibrosis is within the mid and dependent lungs bilaterally. Some bronchi ectasis appears to be present. Limited CT section through the upper abdomen. Tortuosity of the aorta is at the edge of the images. IMPRESSION: 1. No acute pulmonary embolism. 2. Mild to moderate pulmonary fibrosis within the periphery of the lungs.
[2022-11-25 11:31] LABS: Blood Urea Nitrogen 9.6 mg/dL (9.0-27.0); Carbon Dioxide 27.4 mmol/L (21.6-31.8); Chloride 106 mmol/L (96-109); Glucose 108 mg/dL (70-110); Potassium 3.9 mmol/L (3.5-5.5); Sodium 143 mmol/L (135-145)
[2022-11-25 11:43] LABS: Basophils # (A) 0.04 X 10*3/uL (0.00-0.10); Basophils % (A) 0.4 %; Eosinophils # (A) 0.33 X 10*3/uL (0.04-0.35); Eosinophils % (A) 3.6 %; HCT 43.7 % (37.2-46.3); HGB 13.7 d/dL (12.0-15.0); Lymphocytes # (A) 2.55 X 10*3/uL (0.90-5.00); Lymphocytes % (A) 28.1 %; MCH 28.4 pg (27.0-32.0); MCHC 31.4 d/dL (32.0-37.0); MCV 90.7 FL (80.0-97.0); Mean Platelet Volume 9.5 FL (9.5-12.2); Monocytes % (A) 9.9 %; NRBC Per 100 WBC 0 X 10*3/uL (0.00-0.01); Neutrophils # (A) 5.21 X 10*3/uL (1.80-7.70); Neutrophils % (A) 57.6 %; Platelet Count 223 X 10*3/uL (140-440); RBC 4.82 X 10*6/uL (4.10-5.20); RDW 15.9 % (11.5-14.5); WBC 9.07 X 10*3/uL (4.50-10.00)
[2022-11-25] MEDS ORDERED: amLODIPine 10 MG TAB PO SCH (13:00)
--- NOTE | 2022-11-25 13:03 | P.PN ---
Subjective Progress Note Date: 11/25/22 82-year-old female with PMH of CAD, hypertension, dyslipidemia, paroxysmal atrial fibrillation, pulmonary fibrosis, KEVIN presents to the ED after syncopal episode. Of note, she recently underwent exploratory laparotomy with lysis of adhesions by Dr. ghotra for small bowel obstruction. Her hospital course at that time was complicated with atrial fibrillation with RVR. Since her discharge, patient reports decreased oral intake and constant nausea and dry heaving. Today, she was at [facility] when she started experiencing nausea and dry heaving which led to lightheadedness and eventually syncopal episode. She slumped down into a chair and was unconscious for approximately 30 seconds. EMS was called for this reason. In the ED, she was noted to be hypertensive with BP of 191/99. She was bradycardic with heart rate in the 50s. CBC and coagulation panel was benign. CMP showed BUN of 18, glucose of 134 and albumin of 3.3. Troponin less than 0.012. Urinalysis negative. EKG showed sinus bradycardia with prolonged QT interval. Chest x-ray showed strandy opacity in the left lung base atelectasis versus infiltrate. KUB showed no acute process. Patient is admitted for workup of syncope. 11/25 Patient was seen and examined. She reports lightheadedness this morning while sitting. Nausea improved, able to eat breakfast. Cardiology has recommended D-Dimer and event monitor. She has been restarted on Amiodarone. Orthostats were negative. Initial BP this AM SBP of 200 but 156/75 after rechec ked manually. D-Dimer 1.06. CTA chest negative for PE but does show pulmonary fibrosis. CBC relatively benign. BMP unremarkable. Troponins negative, ACS ruled out. Echocardiogram pending. General: non toxic, no distress, appears at stated age Derm: warm, dry Head: atraumatic, normocephalic, symmetric Eyes: EOMI, no lid lag, anicteric sclera Mouth: no lip lesion, mucus membranes moist Cardiovascular: Irregularly irregular, no murmur Lungs: CTA bilateral, no rhonchi, no rales , no accessory muscle use Abdominal: soft, nontender to palpation, no guarding, no appreciable organomegaly Ext: no gross muscle atrophy, no edema, no contractures Neuro: no focal neuro deficits Psych: Alert, oriented, appropriate affect Syncopal episode Hypertensive urgency Nausea and vomiting Chronic conditions: CAD, hypertension, dyslipidemia, paroxysmal atrial fibrillation, pulmonary fibrosis, KEVIN Based on my assessment of this patient, this patient meets a high complexity level of care. Patient has an acute diagnosis of syncope that poses a threat to life or bodily function. Syncopal episode: ACS ruled out. Orthostats negative. Echocardiogram pending. Event monitor on discharge. Telemetry monitoring. Cardiology consulted. Hypertensive urgency: Losartan 50 mg PO QD. Metoprolol 50 mg PO BID. Added A mlodipine 10 mg PO QD. Sinus bradycardia with prolonged QTc: Repeat EKG shows QTc of 471. Avoid Reglan and Zofran. DC Lexapro and Pepcid. Amiodarone restarted by Cardiology. Nausea and vomiting: Caution with Reglan and Zofran due to prolonged QTc. Prefer Tigan only if absolutely needed. Surgery consulted. Eliquis for DVT prophylaxis. FULL CODE. I have reviewed the following weight loss sales consultant notes: I have reviewed the results of the following tests: CBC, BMP, Trop, D-Dimer, CTA chest. I have ordered the following tests: Echocardiogram. I have discussed the care of this patient with the following independent historian: I have independently interpreted the following test below: EKG as above. I have discussed the management of this patient with the following physician: Objective - Vital Signs Vital signs: Vital Signs Temp 98.2 F 11/25/22 07:25 Pulse 70 11/25/22 07:25 Resp 16 11/25/22 07:25 BP 156/75 11/25/22 08:45 Pulse Ox 97 11/25/22 07:25 FiO2 Intake & Output 11/24/22 11/25/22 11/25/22 18:59 06:59 18:59 Weight 61.235 kg 61.235 kg - Labs CBC & Chem 7: 11/25/22 07:58 11/25/22 07:58 Labs: Abnormal Lab Results - Last 24 Hours (Table) 11/24/22 11/24/22 11/25/22 Range/Units 12:58 12:58 07:58 MCHC 31.4 L (32.0-37.0) d/dL RDW 15.7 H 15.9 H (11.5-15.5) % D-Dimer (<0.60) mg/L FEU BUN 18 H (7-17) mg/dL Glucose 134 H (74-99) mg/dL Total Protein 6.0 L (6.3-8.2) g/dL Albumin 3.3 L (3.5-5.0) g/dL 11/25/22 Range/Units 08:24 MCHC (32.0-37.0) d/dL RDW (11.5-15.5) % D-Dimer 1.06 H (<0.60) mg/L FEU BUN (7-17) mg/dL Glucose (74-99) mg/dL Total Protein (6.3-8.2) g/dL Albumin (3.5-5.0) g/dL
[2022-11-25] MEDS ORDERED: ALPRAZolam 0.25 MG TAB PO PRN (14:21)
--- NOTE | 2022-11-25 15:40 | P.PN ---
Subjective Patient is sitting comfortably at the edge of the bed No dizziness no lightheadedness She went to the pharmacy and her friend was receiving an injection The patient is sitting when she felt heart sweaty flushed and then had a presyncopal spell She has had similar episodes in the past On examination her blood pressure is 133/60 144/61 156/75 mmHg Heart sounds are normal Breath sounds are clear Impression An episode of syncope consistent with vasovagal phenomena Elevated blood pressure readings Normal cardiac enzymes Suggest D-dimer Event monitor for 30 days Hypertension management Update Elevated d-dimer No evidence for pulmonary embolism Agree with starting amlodipine 10 mg by mouth daily Continue losartan 50 mg daily Continue metoprolol Objective - Vital Signs Vital signs: Vital Signs Temp 98.1 F 11/25/22 13:35 Pulse 84 11/25/22 13:35 Resp 16 11/25/22 13:35 BP 193/84 11/25/22 13:35 Pulse Ox 93 L 11/25/22 13:35 FiO2 Intake & Output 11/24/22 11/25/22 11/25/22 18:59 06:59 18:59 Weight 61.235 kg 61.235 kg - Labs CBC & Chem 7: 11/25/22 07:58 11/25/22 07:58 Labs: Abnormal Lab Results - Last 24 Hours (Table) 11/25/22 11/25/22 Range/Units 07:58 08:24 MCHC 31.4 L (32.0-37.0) d/dL RDW 15.9 H (11.5-14.5) % D-Dimer 1.06 H (<0.60) mg/L FEU
--- NOTE | 2022-11-25 16:10 | P.GSCN ---
History of Present Illness Consult date: 11/25/22 History of present illness: CHIEF COMPLAINT: Syncope HISTORY OF PRESENT ILLNESS: This is a 82-year-old female who came into the emergency room after a syncopal episode at her [facility] pharmacy. On a she was sitting in a seat when she became unresponsive. EMS was notified and patient was brought into the hospital. She reports that she was having nausea prior to the syncopal episode. She denies any abdominal pain. She has been having bowel movements. She reports having consistent nausea and dry heaves since surgery. She's also been having dizziness. Her surgery was on 10/31/2022 for exploratory laparotomy and lysis of adhesions for a closed loop small bowel obstruction related to adhesions. She denies any drainage from her incision. Denies any fever chills or sweats. She is being evaluated by cardiology. Patient reports no nausea at the time of exam. And she was able to tolerate regular breakfast. PAST MEDICAL HISTORY: Atrial Fibrillation, Chest Pain / Angina, Heart Failure, CVA/TIA, GERD/Reflux, Hyperlipidemia, Hypertension, Osteoarthritis (OA), Sleep Apnea/CPAP/BIPAPPulmonary fibrosis. Other hx: DDD, DJD, SPINAL STENOSIS, chronic bilateral hip pain worse on R side, 2018 septic arthritis R wrist, occluded carotid right artery, TIA x 2, RLS, seasonal allergies, KEVIN with CPAP USED, UTIs, diverticular dx, HAD GERD IN PAST NONE SINCE HIATAL HERNIA SX.,CARDIOMYOPATHY, murmur. PAST SHOE SHANKER HISTORY: She has no history of STDs. PAST SURGICAL HISTORY: Adenoidectomy, Appendectomy, Bladder Surgery, Cholecystectomy, Hysterectomy, Joint Replacement, Orthopedic Surgery, Tonsillectomy, bilateral hip replacments, R rotator cuff repair, vaginal hysterectomy with anterior and posterior repairs in 2001, sinus sx twice, niko cataracts-lens implants, hiatal hernia sx, bladder suspension, L breast bx-benign. Carotid surgery. Colonoscopy. MEDICATIONS: See below ALLERGIES: See below SOCIAL HISTORY: No illicit drug use. REVIEW OF SYSTEMS: CONSTITUTIONAL: Denies fever or chills. HEENT: Denies blurred vision, vision changes, or eye pain. Denies hemoptysis CARDIOVASCULAR: Denies chest pain or pressure. RESPIRATORY: No shortness of breath. GASTROINTESTINAL: See HPI for pertinent findings HEMATOLOGIC: Denies bleeding disorders. GENITOURINARY: Denies any blood in urine or increased urinary frequency. SKIN: Denies pruitis. Denies rash. PHYSICAL EXAM: VITAL SIGNS: Reviewed GENERAL: Well-developed in no acute distress. ABDOMEN: Soft. Nondistended. Nontender. Incision site clean dry and intact NEUROLOGIC: Alert and oriented. Cranial nerves II through XII grossly intact. LABORATORY DATA: WBC 9.07 Hgb 13.7 and platelets 223 Sodium 143 potassium 3.9 creatinine 0.8 Troponins negative 3 urinalysis negative d-dimer 1.06 IMAGING: chest CTA reports no acute pulmonary embolism KUB nonspecific bowel gas pattern without x-ray evidence for acute process ASSESSMENT: 1. Nausea and dizziness 2. Syncope 3. Status post on 10/31/2022 for exploratory laparotomy and lysis of adhesions for a closed loop small bowel obstruction related to adhesions PLAN: -No surgical intervention planned -Continue supportive care -Continue regular diet Physician Credit Portfolio Manager note has been reviewed by physician. Signing provider agrees with the documented findings, assessment, and plan of care. Past Medical History Past Medical History: Atrial Fibrillation, Chest Pain / Angina, Heart Failure, CVA/TIA, GERD/Reflux, Hyperlipidemia, Hypertension, Osteoarthritis (OA), Sleep Apnea/CPAP/BIPAP Additional Past Medical History / Comment(s): Pulmonary fibrosis. Other hx: DDD, DJD, SPINAL STENOSIS, chronic bilateral hip pain worse on R side, 2018 septic arthritis R wrist, occluded carotid right artery, TIA x 2, RLS, seasonal allergies, KEVIN with CPAP USED, UTIs, diverticular dx, HAD GERD IN PAST NONE SINCE HIATAL HERNIA SX.,CARDIOMYOPATHY, murmur. PAST SHOE SHANKER HISTORY: She has no history of STDs. History of Any Multi-Drug Resistant Organisms: None Reported Past Surgical History: Adenoidectomy, Appendectomy, Bladder Surgery, Cholecystectomy, Hysterectomy, Joint Replacement, Orthopedic Surgery, Tonsillectomy Additional Past Surgical History / Comment(s): bilateral hip replacments, R rotator cuff repair, vaginal hysterectomy with anterior and posterior repairs in 2001, sinus sx twice, niko cataracts-lens implants, hiatal hernia sx, bladder suspension, L breast bx-benign. Carotid surgery. Colonoscopy. Past Anesthesia/Blood Transfusion Reactions: No Reported Reaction, Motion Sickness Past Psychological History: Anxiety, Bipolar, Depression Additional Psychological History / Comment(s): Pt is independant. Pt lives with spouse in 1 level home that has 2 porch steps. no home care services recieved. has a cpap machine. Pt drives. Smoking Status: Former smoker Past Alcohol Use History: None Reported Additional Past Alcohol Use History / Comment(s): started smoking at age 18(1958) and quit 2001. smoked 1 ppd. Past Drug Use History: None Reported - Past Family History Mother Family Medical History: Cancer Additional Family Medical History / Comment(s): colon cancer Father Family Medical History: Congestive Heart Failure (CHF) Sister(s) Family Medical History: Cancer Additional Family Medical History / Comment(s): Breast cancer Daughter(s) Family Medical History: Cancer Additional Family Medical History / Comment(s): Cancer of the appendix. Medications and Allergies Home Medications Medication Instructions Recorded Confirmed Type Atorvastatin [Lipitor] 10 mg PO HS 12/17/16 11/24/22 History Escitalopram [Lexapro] 20 mg PO DAILY 12/17/16 11/24/22 History Famotidine 40 mg PO DAILY 12/17/16 11/24/22 History rOPINIRole HCL [Requip] 1 mg PO BID 12/17/16 11/24/22 History Apixaban [Eliquis] 5 mg PO BID 11/26/17 11/24/22 History allopurinoL [Zyloprim] 100 mg PO DAILY 02/01/20 11/24/22 History Acetaminophen Tab [Tylenol] 650 mg PO Q6HR PRN tab 03/26/21 11/24/22 Rx Cholecalciferol [Vitamin D3 (125 125 mcg PO DAILY 30 Days #30 tablet 03/26/21 11/24/22 Rx Mcg = 5000 Iu)] ALPRAZolam [Xanax] 0.25 mg PO DAILY PRN 10/31/22 11/24/22 History Benzonatate [Tessalon Perles] 100 mg PO TID PRN 10/31/22 11/24/22 History L.acidoph,Paracasei, B.lactis 1 cap PO DAILY 10/31/22 11/24/22 History [Probiotic] Amiodarone [Cordarone] 200 mg PO DAILY 11/22/22 11/24/22 History Losartan [Cozaar] 50 mg PO DAILY 11/22/22 11/24/22 History Magnesium Oxide [Mag-Ox] 400 mg PO DAILY #30 tablet 11/22/22 11/24/22 Rx Metoprolol Tartrate [Lopressor] 50 mg PO BID 11/22/22 11/24/22 History Allergies Allergy/AdvReac Type Severity Reaction Status Date / Time amoxicillin [From Augmentin] Allergy Severe Verified 11/24/22 17:09 diarrhea banana Allergy Nausea & Verified 11/24/22 17:09 Vomiting & Diarrhea clavulanic acid Allergy Severe Verified 11/24/22 17:09 [From Augmentin] diarrhea codeine Allergy Nausea & Verified 11/24/22 17:09 Vomiting, hives/rash hydrocodone [From Republic] Allergy Rash/Hives Verified 11/24/22 17:09 morphine Allergy Nausea & Verified 11/24/22 17:09 Vomiting, rash/hives nitrofurantoin Allergy Unknown Verified 11/24/22 17:09 propoxyphene [From Darvon] Allergy Nausea & Verified 11/24/22 17:09 Vomiting, rash/hives Sulfa (Sulfonamide Allergy Rash/Hives Verified 11/24/22 17:09 Antibiotics) aripiprazole [From Abilify] AdvReac severe, Verified 11/24/22 17:09 increased anxiety. bupropion [From Wellbutrin] AdvReac severe, Verified 11/24/22 17:09 increased anxiety. Surgical - Exam Vital Signs Temp Pulse Resp BP Pulse Ox 98.8 F 55 L 20 191/99 99 11/24/22 12:39 11/24/22 12:39 11/24/22 12:39 11/24/22 12:39 11/24/22 12:39 Results - Labs 11/25/22 07:58 11/25/22 07:58 Abnormal Lab Results - Last 24 Hours (Table) 11/24/22 11/24/22 11/25/22 Range/Units 12:58 12:58 08:24 RDW 15.7 H (11.5-15.5) % D-Dimer 1.06 H (<0.60) mg/L FEU BUN 18 H (7-17) mg/dL Glucose 134 H (74-99) mg/dL Total Protein 6.0 L (6.3-8.2) g/dL Albumin 3.3 L (3.5-5.0) g/dL Diabetes panel 11/24/22 Range/Units 12:58 Sodium 137 (137-145) mmol/L Potassium 3.9 (3.5-5.1) mmol/L Chloride 104 (98-107) mmol/L Carbon Dioxide 24 (22-30) mmol/L BUN 18 H (7-17) mg/dL Creatinine 0.89 (0.52-1.04) mg/dL Glucose 134 H (74-99) mg/dL Calcium 10.1 (8.4-10.2) mg/dL AST 24 (14-36) U/L ALT 25 (4-34) U/L Alkaline Phosphatase 51 (38-126) U/L Total Protein 6.0 L (6.3-8.2) g/dL Albumin 3.3 L (3.5-5.0) g/dL Calcium panel 11/24/22 Range/Units 12:58 Calcium 10.1 (8.4-10.2) mg/dL Albumin 3.3 L (3.5-5.0) g/dL Pituitary panel 11/24/22 Range/Units 12:58 Sodium 137 (137-145) mmol/L Potassium 3.9 (3.5-5.1) mmol/L Chloride 104 (98-107) mmol/L Carbon Dioxide 24 (22-30) mmol/L BUN 18 H (7-17) mg/dL Creatinine 0.89 (0.52-1.04) mg/dL Glucose 134 H (74-99) mg/dL Calcium 10.1 (8.4-10.2) mg/dL Adrenal panel 11/24/22 Range/Units 12:58 Sodium 137 (137-145) mmol/L Potassium 3.9 (3.5-5.1) mmol/L Chloride 104 (98-107) mmol/L Carbon Dioxide 24 (22-30) mmol/L BUN 18 H (7-17) mg/dL Creatinine 0.89 (0.52-1.04) mg/dL Glucose 134 H (74-99) mg/dL Calcium 10.1 (8.4-10.2) mg/dL Total Bilirubin 0.6 (0.2-1.3) mg/dL AST 24 (14-36) U/L ALT 25 (4-34) U/L Alkaline Phosphatase 51 (38-126) U/L Total Protein 6.0 L (6.3-8.2) g/dL Albumin 3.3 L (3.5-5.0) g/dL
--- NOTE | 2022-11-25 16:48 | CA ---
Transthoracic Echo Report Name: Lizzie East Age: 82 Gender: F : 1940 Exam Date: 11/25/2022 11:24 Exam Location: [facility] Ht (in): 65 Wt (lb): 135 Ordering Physician: Clarissa Sanderson MD Attending/Referring Phys: Adventure Therapist Rosi Cifuentes [facility] Procedure CPT: Indications: Syncope Cardiac Hx: Technical Quality: Fair Contrast 1: Total Dose (mL): Contrast 2: Total Dose (mL): MEASUREMENTS (Male / Female) Normal Values 2D ECHO LV Diastolic Diameter PLAX 4.5 cm 4.2 - 5.9 / 3.9 - 5.3 cm LV Systolic Diameter PLAX 2.9 cm IVS Diastolic Thickness 0.9 cm 0.6 - 1.0 / 0.6 - 0.9 cm LVPW Diastolic Thickness 0.8 cm 0.6 - 1.0 / 0.6 - 0.9 cm LV Relative Wall Thickness 0.4 LVOT Diameter 2.0 cm Ascending Aorta Diameter 3.3 cm M-MODE Aortic Root Diameter MM 2.5 cm LA Systolic Diameter MM 5.4 cm LA Ao Ratio MM 2.2 AV Cusp Separation MM 1.9 cm DOPPLER AV Peak Velocity 167.0 cm/s AV Peak Gradient 11.2 mmHg AV Mean Velocity 117.9 cm/s AV Mean Gradient 6.2 mmHg AV Velocity Time Integral 36.5 cm LVOT Peak Velocity 112.4 cm/s LVOT Peak Gradient 5.1 mmHg LVOT Velocity Time Integral 26.0 cm LVOT Stroke Volume 79.0 cm??? LVOT Stroke Volume Index 47.2 ml/m??? LVOT Cardiac Index 2774.6 cm???/min???m??? AV Area Cont Eq vti 2.2 cm??? AV Area Cont Eq pk 2.0 cm??? Mitral E Point Velocity 107.9 cm/s Mitral A Point Velocity 110.6 cm/s Mitral E to A Ratio 1.0 MV Deceleration Time 242.6 ms TR Peak Velocity 263.3 cm/s TR Peak Gradient 27.7 mmHg Right Atrial Pressure 8.0 mmHg Pulmonary Artery Systolic Pressu 35.7 mmHg Right Ventricular Systolic Press 35.7 mmHg FINDINGS Left Ventricle Left ventricular wall thickness normal. Left ventricular cavity size normal. Normal left ventricular systolic function with no obvious regional wall motion abnormalities. Left ventricular ejection fraction is estimated at 60-65%. Right Ventricle Normal right ventricular size. Mild pulmonary hypertension. Right Atrium Normal right atrial size. Left Atrium Severe left atrial dilatation. Mitral Valve Mitral valve thickened. Moderate mitral regurgitation. Aortic Valve Trileaflet aortic valve. No aortic regurgitation. Tricuspid Valve Structurally normal tricuspid valve. Trace tricuspid regurgitation. Pulmonic Valve Structurally normal pulmonic valve. Trace pulmonic regurgitation. Pericardium Minimal pericardial effusion (normal variant). Aorta Normal size aortic root and proximal ascending aorta. CONCLUSIONS LVH with preserved systolic function Dilated left atrium Prominent pericardial stripe Previewed by: Dr. Johnny Branch MD (Electronically Signed) Final Date: 25 November 2022 16:47
[2022-11-25] MEDS: ATORVASTATIN 10 MG TAB PO SCH (20:45)
[2022-11-26] MEDS: AMIODARONE 200 MG TAB PO SCH (08:36)
[2022-11-26] MEDS: APIXABAN 5 MG TAB PO SCH (08:36)
[2022-11-26] MEDS: METOPROLOL TARTRATE 50 MG TAB PO SCH (08:36)
[2022-11-26] MEDS: LOSARTAN 50 MG TAB PO SCH (08:36)
[2022-11-26] MEDS ORDERED: SODIUM CHLORIDE 0.9% 1,000 ML IV SCH (08:45)
[2022-11-26] MEDS ORDERED: SODIUM CHLORIDE 0.9% 500 ML 500 ML IV ONE (09:30)
--- NOTE | 2022-11-26 12:32 | P.EPPROC ---
- EP Procedure Note Electrophysiology Procedure Note: Diagnosis Recurrent syncope associated with dizziness sweating nausea and feeling anxious Twelve-lead EKG Twelve-lead EKG shows sinus mechanism normal WV interval T-wave inversions V1- V3, PACs Tilt table test a protocol Baseline blood pressure 179/86 mmHg Baseline 174 beats a minute Patient was tilted upright at 90/70 per protocol This is an intermediate drop in her blood pressure to 134/77 mmHg without any change in heart rate She felt dizzy at that point Subsequently there was a very gradual decline in her blood pressure 218/73 mmHg without any change in heart rate At that point she stated she was not feeling well and felt sick Immediately thereafter there was a further more sudden drop in blood pressure to 98 mmHg, once again without any change in her heart rate Heart rate remained in the 60s and 70s When she was laid supine her blood pressure improved to 147/84 mmHg and then subsequently arranged around 180/88 mmHg Impression T-wave inversions on her twelve-lead EKG V1-V3, with PACs Tilt table test demonstrating orthostatic hypotension syndrome followed by further sudden drop in blood pressure to 98 mmHg While this patient's story is consistent with a vasovagal etiology, 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 Nighttime blood pressures should be well controlled, This will reduce nighttime natriuresis and early childhood worker syncopal spells 30 day event monitor has been given to look for any sudden bradycardia since some of these episodes occurred when she was sitting Follow Dr. Benitez
--- NOTE | 2022-11-26 13:12 | P.DS ---
Providers Date of admission: 11/24/22 16:40 Expected date of discharge: 11/26/22 Attending physician: Clarissa Sanderson MD Consults: 11/24/22 16:38 Consult Physician Urgent Consulting Provider: Ulices Michel Consult Reason/Comments: intractable n/v, recent bowel surgery Do you want consulting provider notified?: Yes Consult Physician Urgent Consulting Provider: [facility] Consult Reason/Comments: syncope, acc htn Do you want consulting provider notified?: Yes Primary care physician: Lan Wallace Hospital Course: Syncopal episode Hypertensive urgency Nausea and vomiting Chronic conditions: CAD, hypertension, dyslipidemia, paroxysmal atrial fibrillation, pulmonary fibrosis, KEVIN Hospital Course: 82-year-old female with PMH of CAD, hypertension, dyslipidemia, paroxysmal atrial fibrillation, pulmonary fibrosis, KEVIN presents to the ED after syncopal episode. Of note, she recently underwent exploratory laparotomy with lysis of adhesions by Dr. ghotra for small bowel obstruction. Her hospital course at that time was complicated with atrial fibrillation with RVR. Since her discharge, patient reports decreased oral intake and constant nausea and dry heaving. Today, she was at [facility] when she started experiencing nausea and dry heaving which led to lightheadedness and eventually syncopal episode. She slumped down into a chair and was unconscious for approximately 30 seconds. EMS was called for this reason. In the ED, she was noted to be hypertensive with BP of 191/99. She was bradycardic with heart rate in the 50s. CBC and coagulation panel was benign. CMP showed BUN of 18, glucose of 134 and albumin of 3.3. Troponin less than 0.012. Urinalysis negative. EKG showed sinus bradycardia with prolonged QT interval. Chest x-ray showed strandy opacity in the left lung base atelectasis versus infiltrate. KUB showed no acute process. Patient is admitted for workup of syncope. 11/25 Patient was seen and examined. She reports lightheadedness this morning while sitting. Nausea improved, able to eat breakfast. Cardiology has recommended D-Dimer and event monitor. She has been restarted on Amiodarone. Orthostats were negative. Initial BP this AM SBP of 200 but 156/75 after rechecked manually. D-Dimer 1.06. CTA chest negative for PE but does show pulmonary fibrosis. CBC relatively benign. BMP unremarkable. Troponins negative, ACS ruled out. Echocardiogram pending. 11/26 Echo reviewed with good EF, no WMA, mild pHTN, severe left atrial dilation. Tilt table test today, shows some dysautonomia, recs are to f/u with Dr. Benitez. Pt discharged with new script for amlodipine HS to reduce supine HTN at night. Also d/c'd on event monitor. Gen: awake, alert HEENT: normocephalic, atraumatic, good hearing acuity, moist mucous membranes Resp: good air exchange, breathing comfortably with no accessory muscle use CVS: good distal perfusion x 4, GI: soft, NTTP, ND : no SPT, no CVAT, serrano catheter not present MSK: no pitting edema, no clubbing Neuro: non-focal, moving all extremities Psych: cooperative, euthymic mood I spent 34 minutes coordinating this discharge on 11/26 Patient Condition at Discharge: Good Plan - Discharge Summary New Discharge Prescriptions: New amLODIPine [Norvasc] 10 mg PO HS #30 tab Continue rOPINIRole HCL [Requip] 1 mg PO BID Atorvastatin [Lipitor] 10 mg PO HS Apixaban [Eliquis] 5 mg PO BID allopurinoL [Zyloprim] 100 mg PO DAILY ALPRAZolam [Xanax] 0.25 mg PO DAILY PRN PRN Reason: Anxiety Benzonatate [Tessalon Perles] 100 mg PO TID PRN PRN Reason: Nausea Acetaminophen Tab [Tylenol] 650 mg PO Q6HR PRN tab PRN Reason: Mild Pain Or Fever > 100.5 Cholecalciferol [Vitamin D3 (125 Mcg = 5000 Iu)] 125 mcg PO DAILY 30 Days #30 tablet L.acidoph,Paracasei, B.lactis [Probiotic] 1 cap PO DAILY Losartan [Cozaar] 50 mg PO DAILY Amiodarone [Cordarone] 200 mg PO DAILY Metoprolol Tartrate [Lopressor] 50 mg PO BID Magnesium Oxide [Mag-Ox] 400 mg PO DAILY #30 tablet Discontinued Famotidine 40 mg PO DAILY Escitalopram [Lexapro] 20 mg PO DAILY Discharge Medication List Atorvastatin [Lipitor] 10 mg PO HS 12/17/16 [History] rOPINIRole HCL [Requip] 1 mg PO BID 12/17/16 [History] Apixaban [Eliquis] 5 mg PO BID 11/26/17 [History] allopurinoL [Zyloprim] 100 mg PO DAILY 02/01/20 [History] Acetaminophen Tab [Tylenol] 650 mg PO Q6HR PRN tab 03/26/21 [Rx] Cholecalciferol [Vitamin D3 (125 Mcg = 5000 Iu)] 125 mcg PO DAILY 30 Days #30 tablet 03/26/21 [Rx] ALPRAZolam [Xanax] 0.25 mg PO DAILY PRN 10/31/22 [History] Benzonatate [Tessalon Perles] 100 mg PO TID PRN 10/31/22 [History] L.acidoph,Paracasei, B.lactis [Probiotic] 1 cap PO DAILY 10/31/22 [History] Amiodarone [Cordarone] 200 mg PO DAILY 11/22/22 [History] Losartan [Cozaar] 50 mg PO DAILY 11/22/22 [History] Magnesium Oxide [Mag-Ox] 400 mg PO DAILY #30 tablet 11/22/22 [Rx] Metoprolol Tartrate [Lopressor] 50 mg PO BID 11/22/22 [History] amLODIPine [Norvasc] 10 mg PO HS #30 tab 11/26/22 [Rx] Follow up Appointment(s)/Referral(s): Ken Benitez MD [STAFF PHYSICIAN] - 12/04/22 9:30 am Lan Wallace MD [Primary Care Provider] - 1-2 days Patient Instructions/Handouts: Syncope (DC) Activity/Diet/Wound Care/Special Instructions: low salt diet event monitor placed 11/25/22- wear for 1 month Discharge Disposition: HOME SELF-CARE
--- NOTE | 2022-11-26 14:02 | P.PN ---
Subjective Progress Note Date: 11/26/22 CHIEF COMPLAINT: Syncope HISTORY OF PRESENT ILLNESS: Patient denies any abdominal pain. Denies any nause a. She is tolerating diet. She had a tilt table study completed today. Patient scheduled for discharge today. PHYSICAL EXAM: VITAL SIGNS: Reviewed. GENERAL: Well-developed in no acute distress. HEENT: No sclera icterus. Extraocular movements grossly intact. Moist buccal mucosa. Head is atraumatic, normocephalic. ABDOMEN: Soft. Nondistended. Nontender. NEUROLOGIC: Alert and oriented. Cranial nerves II through XII grossly intact. ASSESSMENT: 1. Nausea and dizziness 2. Syncope 3. Status post on 10/31/2022 for exploratory laparotomy and lysis of adhesions for a closed loop small bowel obstruction related to adhesions PLAN: -Patient stable from surgical standpoint for discharge -Continue regular diet Physician Laminator Preforms note has been reviewed by physician. Signing provider agrees with the documented findings, assessment, and plan of care. Objective - Vital Signs Vital signs: Vital Signs Temp 97.9 F 11/26/22 08:21 Pulse 65 11/26/22 08:21 Resp 16 11/26/22 08:21 BP 146/60 11/26/22 08:14 Pulse Ox 97 11/26/22 08:21 FiO2 Intake & Output 11/25/22 11/26/22 11/26/22 18:59 06:59 18:59 Intake Total 125 Balance 125 Weight 61.235 kg Intake: IV 125 Other: # Voids 2 2 - Labs CBC & Chem 7: 11/25/22 07:58 11/25/22 07:58
[2022-11-26 14:34] VITALS: BP 128/79; PULSE 57; RESP 18; TEMP 98.1
--- NOTE | 2022-11-26 17:33 | P.PN ---
Subjective Patient has not had any dizzy spells Blood pressure fluctuates quite a bit and it has been in the normal range in the 140s as well as as high as 190 mmHg She was clearly orthostatic yesterday/upon admission Heart sounds are normal Breath sounds are clear Blood pressure 146 was 16 128/79 mmHg I had a detailed discussion the patient and her son Based upon the patient's symptoms of a sudden feeling of anxiety with nausea and sweatiness feeling hot dizzy and then passing out, the symptoms are consistent with a vasovagal etiology The patient clearly states that she has had them even in her teenage years However she is now experiencing them even when she is sitting In addition her blood pressure is very high and she was orthostatic when she came in but her supine blood pressure was high Today she underwent a tilt table test that was ordered by me This showed evidence of supine hypertension with dysautonomia However. Able to provoke an episode of syncope that was associated with a drop in blood pressure that reproduced her symptoms I feel this patient has had vasovagal episodes all lung, although life but now has developed dysautonomia with supine hypertension This makes the treatment more difficult I would recommend treatment of supine nighttime hypertension Most of her episodes of syncope or presyncope occur in the early part of the wakeful hours She has been started on amlodipine 10 mg by mouth daily Hopefully this provides a gradual control of her blood pressure especially when she is supine, and at night This will reduce her hypotensive episodes in the first half of the day Objective - Vital Signs Vital signs: Vital Signs Temp 98.1 F 11/26/22 14:29 Pulse 57 L 11/26/22 14:29 Resp 18 11/26/22 14:29 BP 128/79 11/26/22 14:29 Pulse Ox 96 11/26/22 14:29 FiO2 Intake & Output 11/25/22 11/26/22 11/26/22 18:59 06:59 18:59 Intake Total 125 Balance 125 Weight 61.235 kg Intake: IV 125 Other: # Voids 2 2 - Labs CBC & Chem 7: 11/25/22 07:58 11/25/22 07:58
[2022-11-26] MEDS ORDERED: amLODIPine 10 MG TAB PO SCH (21:00)
== END 2022-11-26 15:30 | disposition home or self-care (01) ==
LOC: EC 12:36 → 6NMEDSUR 16:40
PROVIDERS: ADMIT Family Medicine; ATTEND Family Medicine
DX: R55 Syncope and collapse (principal); R11.0 Nausea; R42 Dizziness and giddiness; I16.0 Hypertensive urgency; R11.2 Nausea with vomiting, unspecified; I25.10 Atherosclerotic heart disease of native coronary artery without angina pectoris; I48.0 Paroxysmal atrial fibrillation; R00.1 Bradycardia, unspecified; I11.0 Hypertensive heart disease with heart failure; I50.9 Heart failure, unspecified; K21.9 Gastro-esophageal reflux disease without esophagitis; E78.5 Hyperlipidemia, unspecified; G47.33 Obstructive sleep apnea (adult) (pediatric); F31.9 Bipolar disorder, unspecified; F41.9 Anxiety disorder, unspecified; J84.10 Pulmonary fibrosis, unspecified; M25.552 Pain in left hip; M25.551 Pain in right hip; G89.29 Other chronic pain; Z86.73 Personal history of transient ischemic attack (TIA), and cerebral infarction without residual deficits; Z87.891 Personal history of nicotine dependence; Z79.899 Other long term (current) drug therapy; Z79.01 Long term (current) use of anticoagulants; Z88.0 Allergy status to penicillin; Z88.5 Allergy status to narcotic agent; Z88.2 Allergy status to sulfonamides
CPT/HCPCS: 96361 ×3; 96365; 96366; 96375 ×2; 99285; 36415; 93005; 93306; 93270; 93660; 85379; 80053; 80048; 83735; 84484; 85025 ×2; 85610; 85730; 81003; 71046; 74018; 71275; G0378 ×3; J0360; J1200; J2765; J3475; Q9967

== ENCOUNTER → 2022-12-02 | Outpatient (CLI) | payer MEDICARE, BC ==
[2022-12-02 16:39] LABS: ALT 30 U/L (8-44); AST 25 U/L (13-35); Albumin/Globulin Ratio 1.67 Ratio (1.60-3.17); Alkaline Phosphatase 55 U/L (41-126); Blood Urea Nitrogen 17.8 mg/dL (9.0-27.0); Calcium 10.8 mg/dL (8.7-10.3); Carbon Dioxide 28.2 mmol/L (21.6-31.8); Chloride 99 mmol/L (96-109); Globulin 2.4 d/dL (1.6-3.3); Glucose 172 mg/dL (70-110); Sodium 140 mmol/L (135-145); Total Bilirubin 0.6 mg/dL (0.3-1.2); Total Protein 6.4 d/dL (6.2-8.2)
== END | disposition home or self-care (01) ==
LOC: LABWHC1 10:17
PROVIDERS: ATTEND Internal Medicine Interventional Cardiology
DX: I48.0 Paroxysmal atrial fibrillation (principal)
CPT/HCPCS: 36415; 80053; 84443

== ENCOUNTER → 2022-12-20 | Outpatient (CLI) | payer MEDICARE, BC ==
--- NOTE | 2022-12-20 13:35 | FL ---
EXAMINATION TYPE: FL UGI air w small bowel DATE OF EXAM: 12/20/2022 COMPARISON: Correlation CT 10/31/2022 HISTORY: 82-year-old female R13.10 DYSPHAGIA, R11.0 NAUSEA, K56.609 BOWEL OBSTRUCTION TECHNIQUE: A double contrast UGI study is performed with small bowel follow through. A total of 2 m inutes 14 seconds of fluoroscopic time was utilized during procedure and 75 images obtained. Total d ose area product (DAP) in uGy*m?, mGy*cm? (or similar): 50. FINDINGS: Lbd Teacher image of the abdomen shows bilateral total hip vertebroplasty is an cholecystectomy clips. Tort uous and calcified abdominal aorta that appears aneurysmal at 4.0 cm. Some prominent air-filled small bowel in the left midabdomen measures up to 3.4 cm. Pelvic phlebolith. The esophagus shows normal course and caliber along with normal emptying into the stomach. Mild to mo derate tertiary peristaltic waves are noted. No fixed narrowing or mucosal abnormality is seen. No suspicious filling defect identified. There is a small fixed hiatal hernia. We were unable to elicit any gastroesophageal reflux during the course of the exam. The stomach shows normal distensibility, peristalsis, and mucosal folds. No evidence of any mass or ulcer disease. The duodenal bulb and sweep are unremarkable. The small bowel study shows normal transit to the colon in less than 2 hours. There is normal mucosa l fold pattern throughout the small bowel. However, there are some scattered patulous small bowel lo ops which show distention of the 3.3 cm. No discrete transition point is identified. There is no evidence of any stricture or filling defect noted. There is excessive bowel overlap in t he right lower quadrant limiting clear evaluation of the terminal ileum. All of the small bowel loops in this location have a normal appearance. IMPRESSION: 1. Mild age-related esophageal dysmotility. 2. Small fixed hiatal hernia. Unable to elicit any gastroesophageal reflux during the course of the e xam. 3. Otherwise, unremarkable upper GI examination. 4. Normal small bowel transit time at less than 2 hours. Some scattered small bowel loops are slightl y patulous at 3.3 cm but showed no discrete transition point or mucosal fold abnormality. Unclear if this represents a mild generalized ileus or chronic sequela of previous small bowel obstruction. No o ther specific abnormality is identified.
== END | disposition home or self-care (01) ==
LOC: RADFLMAIN 09:03
PROVIDERS: ATTEND Surgery
DX: K56.609 Unspecified intestinal obstruction, unspecified as to partial versus complete obstruction (principal); K22.4 Dyskinesia of esophagus; K44.9 Diaphragmatic hernia without obstruction or gangrene
CPT/HCPCS: 74240; 74248

== ENCOUNTER → 2023-01-25 | Outpatient (CLI) | payer MEDICARE, BC ==
--- NOTE | 2023-01-26 08:25 | MR ---
EXAMINATION TYPE: MR MRCP DATE OF EXAM: 01/25/2023 3:25 PM CLINICAL INDICATION:Female, 83 years old with history of K83.8 OTHER DISEASE BILIARY TRACT; Nausea, a cquired dilation of bile duct. COMPARISON: 11/25/2022, 10/31/2022. TECHNIQUE: Multi planar, T2-weighted imaging with and without fat saturation and chemical shift imag ing was performed of the abdomen. Then, heavily T2 weighted imaging (half-Fourier acquisition single- shot turbo spin-echo) was utilized in order to study the biliary system. Maximum intensity projectio n images were reconstructed from the original data of the biliary tree. 3D images were created on a [employer] work station. No Gadolinium given. FINDINGS: Lower Thorax: Cardiomegaly with pulmonary vascular congestion and trace bilateral pleural effusions. MRCP: * The intrahepatic ducts have a normal appearance. * The common bile duct at the level of the pancreatic head measures 7 mm in size. * The common hepatic duct measures 6 mm in size. * The pancreatic duct is normal. * The gallbladder is surgically absent. Abdomen: Liver: Unremarkable. Pancreas: Unremarkable. Spleen: Within normal limits for size. There is a high T2 probable cysts present Adrenal glands: Unremarkable. Kidneys: Unremarkable. Stomach and Bowel: Unremarkable as visualized. Peritoneum: No evidence of pneumoperitoneum or free fluid. Vasculature: Unremarkable. No aortic aneurysm. Infrarenal abdominal fusiform aortic aneurysm measurin g 3.1 cm. Musculoskeletal: The osseous structures appear intact. Lymph Nodes: No gross evidence for lymphadenopathy. Abdominal wall: Unremarkable. IMPRESSION: 1. Surgically absent gallbladder with dilation of the extra hepatic persistent within normal limits. No evidence to suggest ductal stricture, choledocholithiasis, or biliary ductal dilatation. 2. Cardiomegaly with pulmonary vascular congestion and trace bilateral pleural effusions. Correlate with serum BNP for congestive heart failure. 3. Infrarenal abdominal aortic fusiform aneurysmal to 3.1 cm.
== END | disposition home or self-care (01) ==
LOC: RADMRIMAIN 14:27
PROVIDERS: ATTEND Internal Medicine Gastroenterology
DX: K83.8 Other specified diseases of biliary tract (principal); J90 Pleural effusion, not elsewhere classified; I71.43 Infrarenal abdominal aortic aneurysm, without rupture; I51.7 Cardiomegaly; Z90.49 Acquired absence of other specified parts of digestive tract
CPT/HCPCS: 74181

== ENCOUNTER → 2023-03-13 | Outpatient (CLI) | payer MEDICARE, BC ==
--- NOTE | 2023-03-13 17:31 | P.PN ---
Subjective DATE: 03/13/2023 FOLLOW UP VISIT. Patient with obstructive sleep apnea hypopnea syndrome return to sleep center for follow-up visit. Information from previous visit have been reviewed. Patient is using PAP equipment every night for the whole night, getting PAP supplies in time. The patient does not have significant problems with the mask, PAP unit and humidification. [place] sleepiness scale is 6. I checked information from PAP unit. PAP unit pressure 11 cm H2O. Usage is 94 % for more then 4 hours, average 5.8 hours per night. Leak is 10 l/m, which is in acceptable range. Apnea Hypopnea Index is 2.7, which is normal. MEDICATIONS:1. Allopurinol 100 mg once a day 2. Losartan 20 mg once a day 3. Lexapro 20 mg once a day 4. Metoprolol 50 mg once a day 5. Atorvastatin 10 mg once a day 6. Eliquis 5 mg once a day 7. Hydrochlorothiazide 25 mg once a day 8. Trazodone 50 mg once a day During physical exam: GENERAL: A pleasant patient without any distress. VITAL SIGNS: BP 120/79, HR 55, RR 14 , weight 139.8, temperature 98.0, oxygen saturation at room air 98 % . HEENT: PERRLA, EOMI.low position of soft palate, Mallapati 4 . NECK: Supple. No JVD. LUNGS: Clear to percussion and to auscultation. Good air exchange. No wheezing or rhonchi. HEART: S1, S2 regular. ABDOMEN: Soft and nontender.[] EXTREMITIES: No clubbing or cyanosis. MILLING SUPERVISOR: Awake, alert, and oriented x3. No focal deficit. Impressions: 1. Obstructive sleep apnea-hypopnea syndrome. Patient demonstrated great compliance with treatment, benefiting from treatment. 2. Hypertension. 3. History of depression. 4. Hyperlipidemia. 5. Seasonal ALLERGY. 6. Status post carotid endarterectomy. 7. Restless leg syndrome. Plan: 1. Continue using PAP equipment every night for the whole night. 2. To change air filter at least 1-2 times per month. 3. PAP unit should stay lower then position of the head. 4. Advised patient to remove all remaining water from humidifier canister daily and make it dry after each usage. Refill canister with fresh distilled water before each usage. 5. Sleep hygiene with regular time in bed for at least 8 hours. 6. Precautions related to driving. No driving if feel any sleepiness. 7. I will maintain prescription for PAP supplies including mask, tube, filters. 8. Watching weight. 9. Follow up visit in 6 months or earlier if patient has any problems. Thank you very much for allowing me to participate in the management of your patient. Rk White MD, PhD, FAASM. Diplomat of [place] [employer], Sleep Medicine Board by [place] [employer] Rate Inserter of [facility] [place]
== END ==
LOC: 3 N SLEEP 13:22
PROVIDERS: ATTEND Internal Medicine
DX: G47.33 Obstructive sleep apnea (adult) (pediatric) (principal); I10 Essential (primary) hypertension; G25.81 Restless legs syndrome; F32.A Depression, unspecified; E78.5 Hyperlipidemia, unspecified; J30.2 Other seasonal allergic rhinitis; Z79.01 Long term (current) use of anticoagulants; Z98.890 Other specified postprocedural states; Z79.899 Other long term (current) drug therapy; Z99.89 Dependence on other enabling machines and devices; Z88.0 Allergy status to penicillin; Z91.018 Allergy to other foods; Z88.5 Allergy status to narcotic agent; Z88.6 Allergy status to analgesic agent; Z88.2 Allergy status to sulfonamides; Z88.1 Allergy status to other antibiotic agents; Z88.8 Allergy status to other drugs, medicaments and biological substances; Z87.891 Personal history of nicotine dependence
CPT/HCPCS: 99212

== ENCOUNTER 2023-03-27 15:55 | Emergency (ER) | payer MEDICARE, BC ==
--- NOTE | 2023-03-27 16:40 | ED ---
SOB HPI - General Source: patient, family Mode of arrival: ambulatory Limitations: no limitations <Lamar Slade - Last Filed: 03/27/23 16:39> <Marino Schwarz - Last Filed: 03/27/23 22:58> <Jerald Messina - Last Filed: 03/28/23 00:02> - General Chief Complaint: Shortness of Breath Stated Complaint: weakness Time Seen by Provider: 03/27/23 16:39 - History of Present Illness Initial Comments: Patient is an 83-year-old female presented to the ER with a chief complaint of shortness of breath. She states has been going on for over a month and has been seeing by multiple doctors without any answers. She also was endorsing an upset stomach. Denies home oxygen use or chest pain. Denies fevers chills or night sweats. (Lamar Slade) This 83-year-old female presents with complaint of some weakness and shortness of breath. She states that his been present for approximately one month. She denies any chest pain, fevers, chills, or night sweats. She states that she feels wobbly with ambulation due to the weakness. She is still able to get around her house with a cane. She denies any known history of congestive heart failure does state that her father had congestive heart failure. She does complain of some mild lower extremity edema. She has had a minimal cough but this is fairly chronic overall. No other complaints or modifying factors. (Marino Schwarz) - Related Data Home Medications Medication Instructions Recorded Confirmed Atorvastatin [Lipitor] 10 mg PO HS 12/17/16 11/24/22 rOPINIRole HCL [Requip] 1 mg PO BID 12/17/16 11/24/22 Apixaban [Eliquis] 5 mg PO BID 11/26/17 11/24/22 allopurinoL [Zyloprim] 100 mg PO DAILY 02/01/20 11/24/22 ALPRAZolam [Xanax] 0.25 mg PO DAILY PRN 10/31/22 11/24/22 Benzonatate [Tessalon Perles] 100 mg PO TID PRN 10/31/22 11/24/22 L.acidoph,Paracasei, B.lactis 1 cap PO DAILY 10/31/22 11/24/22 [Probiotic] Amiodarone [Cordarone] 200 mg PO DAILY 11/22/22 11/24/22 Losartan [Cozaar] 50 mg PO DAILY 11/22/22 11/24/22 Metoprolol Tartrate [Lopressor] 50 mg PO BID 11/22/22 11/24/22 Previous Rx's Medication Instructions Recorded Acetaminophen Tab [Tylenol] 650 mg PO Q6HR PRN tab 03/26/21 Cholecalciferol [Vitamin D3 (125 125 mcg PO DAILY 30 Days #30 tablet 03/26/21 Mcg = 5000 Iu)] Magnesium Oxide [Mag-Ox] 400 mg PO DAILY #30 tablet 11/22/22 amLODIPine [Norvasc] 10 mg PO HS #30 tab 11/26/22 Furosemide [Lasix] 10 mg PO DAILY 3 Days #3 tab 03/27/23 Allergies Allergy/AdvReac Type Severity Reaction Status Date / Time amoxicillin [From Augmentin] Allergy Severe Verified 03/27/23 16:29 diarrhea banana Allergy Nausea & Verified 03/27/23 16:29 Vomiting & Diarrhea clavulanic acid Allergy Severe Verified 03/27/23 16:29 [From Augmentin] diarrhea codeine Allergy Nausea & Verified 03/27/23 16:29 Vomiting, hives/rash hydrocodone [From Grant] Allergy Rash/Hives Verified 03/27/23 16:29 morphine Allergy Nausea & Verified 03/27/23 16:29 Vomiting, rash/hives nitrofurantoin Allergy Unknown Verified 03/27/23 16:29 propoxyphene [From Darvon] Allergy Nausea & Verified 03/27/23 16:29 Vomiting, rash/hives Sulfa (Sulfonamide Allergy Rash/Hives Verified 03/27/23 16:29 Antibiotics) aripiprazole [From Abilify] AdvReac severe, Verified 03/27/23 16:29 increased anxiety. bupropion [From Wellbutrin] AdvReac severe, Verified 03/27/23 16:29 increased anxiety. Review of Systems ROS Other: All systems not noted in ROS Statement are negative. <Lamar Slade - Last Filed: 03/27/23 16:39> ROS Other: All systems not noted in ROS Statement are negative. <Marino Schwarz - Last Filed: 03/27/23 22:58> ROS Other: All systems not noted in ROS Statement are negative. <Jerald Messina - Last Filed: 03/28/23 00:02> ROS Statement: Those systems with pertinent positive or pertinent negative responses have been documented in the HPI. Past Medical History Past Medical History: Atrial Fibrillation, Chest Pain / Angina, Heart Failure, CVA/TIA, GERD/Reflux, Hyperlipidemia, Hypertension, Osteoarthritis (OA), Sleep Apnea/CPAP/BIPAP Additional Past Medical History / Comment(s): Pulmonary fibrosis. Other hx: DDD, DJD, SPINAL STENOSIS, chronic bilateral hip pain worse on R side, 2018 septic arthritis R wrist, occluded carotid right artery, TIA x 2, RLS, seasonal allergies, KEVIN with CPAP USED, UTIs, diverticular dx, HAD GERD IN PAST NONE SIN CE HIATAL HERNIA SX.,CARDIOMYOPATHY, murmur. 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 History of Any Multi-Drug Resistant Organisms: None Reported Past Surgical History: Adenoidectomy, Appendectomy, Bladder Surgery, Cholecystectomy, Hysterectomy, Joint Replacement, Orthopedic Surgery, Tonsillectomy Additional Past Surgical History / Comment(s): bilateral hip replacments, R rotator cuff repair, vaginal hysterectomy with anterior and posterior repairs in 2001, sinus sx twice, niko cataracts-lens implants, hiatal hernia sx, bladder suspension, L breast bx-benign. Carotid surgery. Colonoscopy. Past Anesthesia/Blood Transfusion Reactions: No Reported Reaction, Motion Sickness Past Psychological History: Anxiety, Bipolar, Depression Smoking Status: Former smoker Past Alcohol Use History: None Reported Past Drug Use History: None Reported - Past Family History Mother Family Medical History: Cancer Additional Family Medical History / Comment(s): colon cancer Father Family Medical History: Congestive Heart Failure (CHF) Sister(s) Family Medical History: Cancer Additional Family Medical History / Comment(s): Breast cancer Daughter(s) Family Medical History: Cancer Additional Family Medical History / Comment(s): Cancer of the appendix. <Lamar Slade - Last Filed: 03/27/23 16:39> General Exam Limitations: no limitations <Lamar Slade - Last Filed: 03/27/23 16:39> <Marino Schwarz - Last Filed: 03/27/23 22:58> - General Exam Comments Initial Comments: Visual Physical Exam Vital signs reviewed General: Well-appearing, nontoxic, no acute distress. Head: Normocephalic, atraumatic Eyes: PERRLA, EOMI ENT: Airway patent Chest: Nonlabored breathing Skin: No visual rash, normal skin tone Neuro: Alert and oriented 3 Musculoskeletal: No gross abnormalities (Lamar Slade) GENERAL: The patient is well nourished and well hydrated. VITAL SIGNS: Heart rate, blood pressure, respiratory rate reviewed as recorded in nurse's notes. EYES: Pupils are round and reactive. Extraocular movements are intact. No conjunctival / lid redness or swelling. ENT: No external evidence of injury, swelling, or ecchymosis. Airway is patent. Throat is clear. NECK: Nontender. No swelling or evidence of injury. No subcutaneous emphysema. Trachea is midline. No thyroid mass. HEART: Regular rate and rhythm. Good peripheral pulses. There is some mild lower extremity edema which is overall minimal. LUNGS/CHEST: Breath sounds clear and equal bilaterally. No rales, rhonchi, or wheezes. No ecchymosis, subcutaneous emphysema, or tenderness. ABDOMEN: Abdomen soft without tenderness. No palpable masses or organomegaly. No peritoneal signs. No abdominal wall swelling or ecchymosis. EXTREMITIES: No extremity tenderness. Normal muscle tone and function. No thoracolumbar tenderness. NEUROLOGIC: Sensation is grossly intact. Cranial nerve exam reveals face is symmetrical, tongue is midline, speech is clear. SKIN: No abrasions or ecchymosis is noted. No induration or masses noted. PSYCHIATRIC: Alert and oriented. Appropriate behavior and judgment. (Marino Schwarz) Course Vital Signs 03/27/23 03/27/23 03/27/23 16:26 22:32 23:38 Temperature 98 F 98.3 F Pulse Rate 68 66 69 Respiratory 18 20 20 Rate Blood Pressure 179/120 170/68 146/69 O2 Sat by Pulse 95 96 92 L Oximetry Medical Decision Making <Lamar Slade - Last Filed: 03/27/23 16:39> - Lab Data Result diagrams: 03/27/23 16:30 03/27/23 16:30 <Marino Schwarz - Last Filed: 03/27/23 22:58> - Lab Data Result diagrams: 03/27/23 16:30 03/27/23 16:30 <Jerald Messina - Last Filed: 03/28/23 00:02> - Medical Decision Making I performed the quick note portion of the exam. Electronically signed by Lamar Slade PA-C (Lamar Slade) The patient was seen and examined. All diagnostics were reviewed. The EKG shows a normal sinus rhythm at a rate of 68. There is some nonspecific T wave changes noted primarily in the anterior leads per my interpretation. No ST elevation noted. Intervals are normal. Chest x-ray shows some interstitial infiltrates likely related to congestive heart failure per my interpretation. Radiologist similar with possible congestive heart failure but cannot rule out atypical pneumonia. The laboratory overall does not show any acute significant abnormalities to this point. BNP as well as viral studies are currently pending. Case will be passed off to oncoming physician. (Marino Schwarz) Was pt. sent in by a medical professional or institution ([facility]ICIA Wilson, MEAL GRINDER TENDER, urgent care, hospital, or long-term...) When possible be specific @ -No Did you speak to anyone other than the patient for history (EMS, parent, family, police, friend...)? What history was obtained from this source @ -No Did you review nursing and triage notes (agree or disagree)? Why? @ -I reviewed and agree with nursing and triage notes Were old charts reviewed (outside hosp., previous admission, EMS record, old EKG, old radiological studies, urgent care reports/EKG's, long-term records)? Report findings @ -Old charts reviewed Differential Diagnosis (chest pain, altered mental status, abdominal pain women, abdominal pain men, vaginal bleeding, weakness, fever, dyspnea, syncope, headache, dizziness, GI bleed, back pain, seizure, CVA, palpatations, mental health, musculoskeletal)? @ -Differential Dyspnea: Coronary syndrome, arrhythmia, tamponade, asthma, COPD, pulmonary embolism, pneumonia, pneumothorax, pulmonary effusion, anaphylaxis, diabetic ketoacidosis, flailed chest, pulmonary contusion, diaphragmatic rupture, anemia, neuromuscular, this is not meant to be an all-inclusive list. EKG interpreted by me (3pts min.). @ -As above X-rays interpreted by me (1pt min.). @ -Chest x-ray reveals suspected mild pulmonary vascular congestion. CT interpreted by me (1pt min.). @ -None done U/S interpreted by me (1pt. min.). @ -None done What testing was considered but not performed or refused? (CT, X-rays, U/S, labs)? Why? @ -None What meds were considered but not given or refused? Why? @ -None Did you discuss the management of the patient with other professionals (professionals i.e. , PA, MEAL GRINDER TENDER, lab, RT, psych nurse, social science instructor, baking powder mixer, teacher, boating safety officer, hospice case manager)? Give summary @ -No Was smoking cessation discussed for >3mins.? @ -No Was critical care preformed (if so, how long)? @ -No Were there social determinants of health that impacted care today? How? (Homelessness, low income, unemployed, alcoholism, drug addiction, transportation, low edu. Level, literacy, decrease access to med. care, long-term, rehab)? @ -No Was there de-escalation of care discussed even if they declined (Discuss DNR or withdrawal of care, Hospice)? DNR status @ -No What co-morbidities impacted this encounter? (DM, HTN, Smoking, COPD, CAD, Cancer, CVA, ARF, Chemo, Hep., AIDS, mental health diagnosis, sleep apnea, morbid obesity)? @ -None Was patient admitted / discharged? Hospital course, mention meds given and route, prescriptions, significant lab abnormalities, going to OR and other pertinent info. @ -Patient presents complaining of dyspnea that has been ongoing for weeks. Patient was signed out to me pending results of repeat laboratory studies. She has been ambulating throughout the waiting room without issue. Symptoms have been ongoing for weeks to months. States symptoms started when she stopped her hydrochlorothiazide. Has not followed up with a physician. No history of CHF and is not on any diuretics. Workup thus far remarkable for possible mild pulmonary vascular congestion as well as nondetectable troponin. Repeat labs included an undetectable troponin x 2, as well as a borderline BNP. On exam, patient has mild pitting edema of the lower extremities bilaterally which she states is pretty consistent for the last few months. Remainder the workup unremarkable. Pulse ox documented as 92% on room air however she is wea ring nail [place] and when it we are able to find a good 1 with a good waveform, it is 95% despite all the walking. I did discuss with the patient that she may be waiting in the waiting room longer if she were to be admitted however I did offer observation admission for cardiology evaluation. She does not want this and refuses at this time. She would prefer to go home at this time and follow- up with cardiology on an outpatient basis. I will provide her with a one-time dose of Lasix as well as a short-term prescription of Lasix to see if this improves her symptoms. She was in agreement this plan. Recommended follow-up with her awning frame maker and she was in agreement the plan. All symptoms seem to be more or less chronic for the last few weeks to months without any acute changes. She states she presents today because she has not followed up with anyone for it. No new symptoms. No chest pain. Strict return precautions discussed. I will provide the patient with a prescription for Lasix. I instructed the patient to follow up with their PCP in the next 1-3 days. I explained that the patient should return to the emergency department if they experience any worsening symptoms. Strict return precautions were discussed with the patient. The patient expressed understanding of these instructions. I answered all questions that the patient had. The patient was discharged home in good condition with their prescriptions and follow up information. Undiagnosed new problem with uncertain prognosis? @ -No Drug Therapy requiring intensive monitoring for toxicity (Heparin, Nitro, Insul in, Cardizem)? @ -No Were any procedures done? @ -No Diagnosis/symptom? @ -Chronic dyspnea, possible mild CHF Acute, or Chronic, or Acute on Chronic? @ -Acute Uncomplicated (without systemic symptoms) or Complicated (systemic symptoms)? @ -Complicated Side effects of treatment? @ -No Exacerbation, Progression, or Severe Exacerbation? @ -No Poses a threat to life or bodily function? How? (Chest pain, [place], [place], pneumonia, PE, COPD, DKA, ARF, appy, cholecystitis, CVA, Diverticulitis, Homicidal, Suicidal, threat to staff... and all critical care pts) @ -Unlikely (Jerald Messina) - Lab Data Lab Results 03/27/23 03/27/23 03/27/23 Range/Units 16:30 16:30 16:30 WBC 7.4 (3.8-10.6) k/uL RBC 4.66 (3.80-5.40) m/uL Hgb 12.9 (11.4-16.0) gm/dL Hct 40.4 (34.0-46.0) % MCV 86.7 (80.0-100.0) fL MCH 27.6 (25.0-35.0) pg MCHC 31.8 (31.0-37.0) g/dL RDW 15.0 (11.5-15.5) % Plt Count 183 (150-450) k/uL MPV 7.5 Neutrophils % 66 % Lymphocytes % 23 % Monocytes % 7 % Eosinophils % 2 % Basophils % 0 % Neutrophils # 4.9 (1.3-7.7) k/uL Lymphocytes # 1.7 (1.0-4.8) k/uL Monocytes # 0.6 (0-1.0) k/uL Eosinophils # 0.1 (0-0.7) k/uL Basophils # 0.0 (0-0.2) k/uL PT 11.2 (10.0-12.5) sec INR 1.0 (<1.2) APTT 26.3 (22.0-30.0) sec Sodium 138 (137-145) mmol/L Potassium 3.5 (3.5-5.1) mmol/L Chloride 105 (98-107) mmol/L Carbon Dioxide 28 (22-30) mmol/L Anion Gap 5 mmol/L BUN 12 (7-17) mg/dL Creatinine 0.84 (0.52-1.04) mg/dL Est GFR (CKD-EPI)AfAm 74 (>60 ml/min/1.73 sqM) Est GFR (CKD-EPI)NonAf 64 (>60 ml/min/1.73 sqM) Glucose 88 (74-99) mg/dL Calcium 9.8 (8.4-10.2) mg/dL Phosphorus 3.1 (2.5-4.5) mg/dL Magnesium 1.7 (1.6-2.3) mg/dL Total Bilirubin 1.3 (0.2-1.3) mg/dL AST 22 (14-36) U/L ALT 17 (4-34) U/L Alkaline Phosphatase 70 (38-126) U/L Troponin I (0.000-0.034) ng/mL NT-Pro-B Natriuret Pep pg/mL Total Protein 6.0 L (6.3-8.2) g/dL Albumin 3.4 L (3.5-5.0) g/dL Influenza Type A (PCR) (Not Detectd) Influenza Type B (PCR) (Not Detectd) RSV (PCR) (Not Detectd) SARS-CoV-2 (PCR) (Not Detectd) 03/27/23 03/27/23 03/27/23 Range/Units 16:30 22:19 22:19 WBC (3.8-10.6) k/uL RBC (3.80-5.40) m/uL Hgb (11.4-16.0) gm/dL Hct (34.0-46.0) % MCV (80.0-100.0) fL MCH (25.0-35.0) pg MCHC (31.0-37.0) g/dL RDW (11.5-15.5) % Plt Count (150-450) k/uL MPV Neutrophils % % Lymphocytes % % Monocytes % % Eosinophils % % Basophils % % Neutrophils # (1.3-7.7) k/uL Lymphocytes # (1.0-4.8) k/uL Monocytes # (0-1.0) k/uL Eosinophils # (0-0.7) k/uL Basophils # (0-0.2) k/uL PT (10.0-12.5) sec INR (<1.2) APTT (22.0-30.0) sec Sodium (137-145) mmol/L Potassium (3.5-5.1) mmol/L Chloride (98-107) mmol/L Carbon Dioxide (22-30) mmol/L Anion Gap mmol/L BUN (7-17) mg/dL Creatinine (0.52-1.04) mg/dL Est GFR (CKD-EPI)AfAm (>60 ml/min/1.73 sqM) Est GFR (CKD-EPI)NonAf (>60 ml/min/1.73 sqM) Glucose (74-99) mg/dL Calcium (8.4-10.2) mg/dL Phosphorus (2.5-4.5) mg/dL Magnesium (1.6-2.3) mg/dL Total Bilirubin (0.2-1.3) mg/dL AST (14-36) U/L ALT (4-34) U/L Alkaline Phosphatase (38-126) U/L Troponin I <0.012 <0.012 (0.000-0.034) ng/mL NT-Pro-B Natriuret Pep pg/mL Total Protein (6.3-8.2) g/dL Albumin (3.5-5.0) g/dL Influenza Type A (PCR) Not Detected (Not Detectd) Influenza Type B (PCR) Not Detected (Not Detectd) RSV (PCR) Not Detected (Not Detectd) SARS-CoV-2 (PCR) Not Detected (Not Detectd) 03/27/23 Range/Units 22:19 WBC (3.8-10.6) k/uL RBC (3.80-5.40) m/uL Hgb (11.4-16.0) gm/dL Hct (34.0-46.0) % MCV (80.0-100.0) fL MCH (25.0-35.0) pg MCHC (31.0-37.0) g/dL RDW (11.5-15.5) % Plt Count (150-450) k/uL MPV Neutrophils % % Lymphocytes % % Monocytes % % Eosinophils % % Basophils % % Neutrophils # (1.3-7.7) k/uL Lymphocytes # (1.0-4.8) k/uL Monocytes # (0-1.0) k/uL Eosinophils # (0-0.7) k/uL Basophils # (0-0.2) k/uL PT (10.0-12.5) sec INR (<1.2) APTT (22.0-30.0) sec Sodium (137-145) mmol/L Potassium (3.5-5.1) mmol/L Chloride (98-107) mmol/L Carbon Dioxide (22-30) mmol/L Anion Gap mmol/L BUN (7-17) mg/dL Creatinine (0.52-1.04) mg/dL Est GFR (CKD-EPI)AfAm (>60 ml/min/1.73 sqM) Est GFR (CKD-EPI)NonAf (>60 ml/min/1.73 sqM) Glucose (74-99) mg/dL Calcium (8.4-10.2) mg/dL Phosphorus (2.5-4.5) mg/dL Magnesium (1.6-2.3) mg/dL Total Bilirubin (0.2-1.3) mg/dL AST (14-36) U/L ALT (4-34) U/L Alkaline Phosphatase (38-126) U/L Troponin I (0.000-0.034) ng/mL NT-Pro-B Natriuret Pep 1900 pg/mL Total Protein (6.3-8.2) g/dL Albumin (3.5-5.0) g/dL Influenza Type A (PCR) (Not Detectd) Influenza Type B (PCR) (Not Detectd) RSV (PCR) (Not Detectd) SARS-CoV-2 (PCR) (Not Detectd) Disposition <Lamar Slade - Last Filed: 03/27/23 16:39> <Marino Schwarz - Last Filed: 03/27/23 22:58> Is patient prescribed a controlled substance at d/c from ED?: No Time of Disposition: 23:52 <Jerald Messina - Last Filed: 03/28/23 00:02> Clinical Impression: Dyspnea, Hypertension Narrative: possible mild chf (Jerald Messina) Disposition: HOME SELF-CARE Condition: Good Instructions (If sedation given, give patient instructions): Hypertension (ED) Prescriptions: Furosemide [Lasix] 10 mg PO DAILY 3 Days #3 tab Referrals: Lan Wallace MD [Primary Care Provider] - 1-2 days
[2023-03-27 16:54] LABS: Basophils % (A) 0 %; Eosinophils # (A) 0.1 k/uL (0-0.7); Eosinophils % (A) 2 %; HCT 40.4 % (34.0-46.0); HGB 12.9 gm/dL (11.4-16.0); Lymphocytes # (A) 1.7 k/uL (1.0-4.8); Lymphocytes % (A) 23 %; MCH 27.6 pg (25.0-35.0); MCHC 31.8 g/dL (31.0-37.0); MCV 86.7 fL (80.0-100.0); Mean Platelet Volume 7.5; Monocytes # (A) 0.6 k/uL (0-1.0); Monocytes % (A) 7 %; Neutrophils # (A) 4.9 k/uL (1.3-7.7); Neutrophils % (A) 66 %; Platelet Count 183 k/uL (150-450); RBC 4.66 m/uL (3.80-5.40); WBC 7.4 k/uL (3.8-10.6)
[2023-03-27 17:07] LABS: ALT 17 U/L (4-34); AST 22 U/L (14-36); African American GFR (CKD) 74 (>60 ml/min/1.73 sqM); Albumin 3.4 g/dL (3.5-5.0); Alkaline Phosphatase 70 U/L (38-126); Anion Gap 5 mmol/L; Blood Urea Nitrogen 12 mg/dL (7-17); Calcium 9.8 mg/dL (8.4-10.2); Carbon Dioxide 28 mmol/L (22-30); Chloride 105 mmol/L (98-107); Glucose 88 mg/dL (74-99); Magnesium 1.7 mg/dL (1.6-2.3); Non-African American GFR(CKD) 64 (>60 ml/min/1.73 sqM); Partial Thromboplastin Time 26.3 sec (22.0-30.0); Phosphorus 3.1 mg/dL (2.5-4.5); Potassium 3.5 mmol/L (3.5-5.1); Prothrombin Time 11.2 sec (10.0-12.5); Sodium 138 mmol/L (137-145); Total Bilirubin 1.3 mg/dL (0.2-1.3)
--- NOTE | 2023-03-27 17:18 | XR ---
EXAMINATION TYPE: XR chest 2V DATE OF EXAM: 03/27/2023 COMPARISON: 11/24/2022 HISTORY: 83 year-old female shortness of breath, difficulty breathing TECHNIQUE: PA and lateral views FINDINGS: Heart mildly enlarged. Diffuse interstitial and patchy bilateral density. Trace right pleural effusio n. IMPRESSION: Mild cardiomegaly and diffuse interstitial opacity. Additional mild bilateral patchy opacities. Corre late for CHF with interstitial edema versus atypical pneumonias. Trace right effusion.
[2023-03-27 22:37] VITALS: RESP 20
[2023-03-28 00:01] VITALS: BP 146/69; PULSE 69; TEMP 98.3
[2023-03-28] MEDS: FUROSEMIDE 20 MG TAB PO STA (00:18)
== END 2023-03-28 00:22 | disposition home or self-care (01) ==
LOC: EC 15:55
DX: R06.00 Dyspnea, unspecified (principal); I10 Essential (primary) hypertension; I48.91 Unspecified atrial fibrillation; I11.0 Hypertensive heart disease with heart failure; I50.9 Heart failure, unspecified; G47.30 Sleep apnea, unspecified; E78.5 Hyperlipidemia, unspecified; F41.9 Anxiety disorder, unspecified; F31.9 Bipolar disorder, unspecified; Z87.891 Personal history of nicotine dependence; Z79.899 Other long term (current) drug therapy; Z20.822 Contact with and (suspected) exposure to COVID-19; Z79.01 Long term (current) use of anticoagulants; Z88.0 Allergy status to penicillin; Z91.018 Allergy to other foods; Z88.5 Allergy status to narcotic agent; Z88.6 Allergy status to analgesic agent; Z88.2 Allergy status to sulfonamides; Z88.8 Allergy status to other drugs, medicaments and biological substances
CPT/HCPCS: 36415; 71046; 80053; 83735; 83880; 84100; 84484; 85025; 85610; 85730; 87636; 93005; 99285

== ENCOUNTER → 2023-08-15 | Outpatient (CLI) | payer MEDICARE, BC ==
[2023-08-15 15:43] LABS: Chol/HDL Ratio 1.79 Ratio; LDL Cholesterol,Calculated 39.4 mg/dL (0.0-131.0)
--- NOTE | 2023-08-15 16:26 | US ---
EXAMINATION TYPE: US duplex aorta DATE OF EXAM: 08/15/2023 COMPARISON: NONE CLINICAL INDICATION: Female, 83 years old with history of I71.40 ABDOMINAL AORTIC ANEURYSM, WITHOUT R UPTURE,; AAA TECHNIQUE: Multiple sonographic images of the abdominal aorta are obtained. FINDINGS: EXAM MEASUREMENTS: Abdominal Aorta: Proximal: 1.5 x 1.5cm Mid: 1.6 x 1.7cm Distal: 3.2 x 3.8cm Bifurcation: Right Iliac: obscured by overlying bowel gas Left Iliac: obscured by overlying bowel gas TECHNIC[employer] NOTES: Distal AAA Distal abdominal aortic fusiform aneurysm. Color flow is identified throughout the aorta. IMPRESSION: 1. Distal abdominal aortic aneurysm measuring up to 3.8 cm. 2. Nonvisualization of bilateral iliac arteries secondary to overlying bowel gas.
== END | disposition home or self-care (01) ==
LOC: RADUSWWP 10:19
PROVIDERS: ATTEND Family Medicine
DX: I71.40 Abdominal aortic aneurysm, without rupture, unspecified (principal)
CPT/HCPCS: 80061; 93979

== ENCOUNTER → 2023-10-01 | Outpatient (CLI) | payer MEDICARE, BC | LOC: 3 N SLEEP 11:45 | PROVIDERS: ATTEND Internal Medicine | DX: G47.33 Obstructive sleep apnea (adult) (pediatric) (principal); I10 Essential (primary) hypertension; G25.81 Restless legs syndrome; M10.9 Gout, unspecified; E78.5 Hyperlipidemia, unspecified; M53.9 Dorsopathy, unspecified; I48.91 Unspecified atrial fibrillation; Z79.01 Long term (current) use of anticoagulants; Z99.89 Dependence on other enabling machines and devices; Z79.899 Other long term (current) drug therapy; Z88.0 Allergy status to penicillin; Z88.5 Allergy status to narcotic agent; Z91.018 Allergy to other foods; Z88.8 Allergy status to other drugs, medicaments and biological substances; Z88.1 Allergy status to other antibiotic agents; Z88.2 Allergy status to sulfonamides; Z87.891 Personal history of nicotine dependence | CPT/HCPCS: 99212 ==

== ENCOUNTER → 2024-02-25 | Outpatient (CLI) | payer MEDICARE, BC ==
--- NOTE | 2024-02-25 12:25 | P.PROGSL ---
Subjective DATE: 02/25/2024 FOLLOW UP VISIT. Patient with obstructive sleep apnea hypopnea syndrome return to sleep center for follow-up visit. Information from previous visit have been reviewed. During the last months patient had some difficulties related to shingles. The patient does not have significant problems with the mask, PAP unit and humidification. Morton sleepiness scale is 6. I checked information from PAP unit. PAP unit pressure 11 cm H2O. Usage is 8 nights during the last month, average 4.1 hours per night. Leak is 13 l/m, which is in acceptable range. Apnea Hypopnea Index is increased to 10.4. Apnea hypopnea index was totally normal during previous visit in September 2023 when it was 1.4 MEDICATIONS have been reviewed, please see below. During physical exam: GENERAL: A pleasant patient without any distress. VITAL SIGNS: Please see below, weight is 150 lbs. HEENT: PERRLA, EOMI.low position of soft palate, Mallapati 3. NECK: Supple. No JVD. LUNGS: Clear to percussion and to auscultation. Good air exchange. No wheezing or rhonchi. HEART: S1, S2 regular. ABDOMEN: Soft and nontender.[] EXTREMITIES: No clubbing or cyanosis. BAR STEWARD: Awake, alert, and oriented x3. No focal deficit. Impressions: 1. Obstructive sleep apnea-hypopnea syndrome. Patient had some difficulties to use CPAP equipment during the last months, because she had shingles. 2. Status post shingles. 3. Hypertension. 4. History of atrial fibrillation. 5. Gout. 6. Hyperlipidemia. 7. Back problems. 8. History of restless leg syndrome. I changed regimen of CPAP unit to AutoPap with a range of pressure 5-12.4 cm of water. Plan: 1. Continue using PAP equipment every night for the whole night. 2. Sleep hygiene with regular time in bed for at least 7.5-8 hours 3. PAP unit should stay lower then position of the head. 4. Advised patient to remove all remaining water from humidifier canister daily and make it dry after each usage. Refill canister with fresh distilled water before each usage. 5. Watching weight. 6. Precautions related to driving. No driving if feel any sleepiness. 7. I will maintain prescription for PAP supplies including mask, tube, filters. 8. Follow up visit in 4 months or earlier if patient has any problems. Thank you very much for allowing me to participate in the management of your patient. Rk White MD, PhD, FAASM. Diplomat of [place] [employer], Sleep Medicine Board by [employer] of [facility] [place] Objective Home Medications: Home Medications Medication Instructions Recorded Confirmed Type Atorvastatin [Lipitor] 10 mg PO HS 12/17/16 02/25/24 History rOPINIRole HCL [Requip] 1 mg PO BID 12/17/16 02/25/24 History Apixaban [Eliquis] 5 mg PO BID 11/26/17 02/25/24 History allopurinoL [Zyloprim] 100 mg PO DAILY 02/01/20 02/25/24 History Acetaminophen Tab [Tylenol] 650 mg PO Q6HR PRN tab 03/26/21 11/24/22 Rx Cholecalciferol [Vitamin D3 (125 125 mcg PO DAILY 30 Days #30 tablet 03/26/21 02/25/24 Rx Mcg = 5000 Iu)] ALPRAZolam [Xanax] 0.25 mg PO DAILY PRN 10/31/22 02/25/24 History Benzonatate [Tessalon Perles] 100 mg PO TID PRN 10/31/22 11/24/22 History L.acidoph,Paracasei, B.lactis 1 cap PO DAILY 10/31/22 11/24/22 History [Probiotic] Amiodarone [Cordarone] 200 mg PO DAILY 11/22/22 11/24/22 History Losartan [Cozaar] 50 mg PO DAILY 11/22/22 02/25/24 History Magnesium Oxide [Mag-Ox] 400 mg PO DAILY #30 tablet 11/22/22 02/25/24 Rx Metoprolol Tartrate [Lopressor] 50 mg PO BID 11/22/22 02/25/24 History amLODIPine [Norvasc] 10 mg PO HS #30 tab 11/26/22 Rx Furosemide [Lasix] 10 mg PO DAILY 3 Days #3 tab 03/27/23 02/25/24 Rx Cetirizine HCl [Zyrtec] 5 mg PO BID 02/25/24 02/25/24 History Escitalopram [Lexapro] 20 mg PO DAILY 01/15/25 01/15/25 History Famotidine 20 mg PO BID 02/25/24 02/25/24 History Gabapentin 300 mg PO HS 02/25/24 02/25/24 History
== END ==
LOC: 3 N SLEEP 11:49
PROVIDERS: ATTEND Internal Medicine
DX: G47.33 Obstructive sleep apnea (adult) (pediatric) (principal); I10 Essential (primary) hypertension; G25.81 Restless legs syndrome; E78.5 Hyperlipidemia, unspecified; M10.9 Gout, unspecified; M54.9 Dorsalgia, unspecified; Z86.19 Personal history of other infectious and parasitic diseases; Z86.79 Personal history of other diseases of the circulatory system; Z99.89 Dependence on other enabling machines and devices; Z88.0 Allergy status to penicillin; Z88.1 Allergy status to other antibiotic agents; Z91.018 Allergy to other foods; Z88.2 Allergy status to sulfonamides; Z88.8 Allergy status to other drugs, medicaments and biological substances; Z87.891 Personal history of nicotine dependence
CPT/HCPCS: 99212

== ENCOUNTER 2024-05-13 14:15 | Emergency (ER) | payer MEDICARE, BC ==
[2024-05-13 14:27] VITALS: RESP 18
[2024-05-13 14:38] VITALS: TEMP 98
[2024-05-13] MEDS: DILTIAZEM 125 MG in SODIUM CHLORIDE 0.9% 100 ML IV SCH (14:57)
[2024-05-13 15:01] LABS: Basophils % (A) 0 %; Eosinophils # (A) 0.2 k/uL (0-0.7); Eosinophils % (A) 2 %; HCT 39.9 % (34.0-46.0); HGB 12.8 gm/dL (11.4-16.0); Hypochromasia Slight; Lymphocytes # (A) 1.8 k/uL (1.0-4.8); Lymphocytes % (A) 23 %; MCH 26.7 pg (25.0-35.0); MCV 83.6 fL (80.0-100.0); Mean Platelet Volume 8.1; Monocytes # (A) 0.7 k/uL (0-1.0); Monocytes % (A) 9 %; Neutrophils # (A) 5.3 k/uL (1.3-7.7); Neutrophils % (A) 65 %; Platelet Count 184 k/uL (150-450); RBC 4.78 m/uL (3.80-5.40); RDW 14.6 % (11.5-15.5); WBC 8.2 k/uL (3.8-10.6)
[2024-05-13] MEDS: SODIUM CHLORIDE 0.9% 500 ML 500 ML IV STA (15:03)
[2024-05-13] MEDS: DILTIAZEM DRIP BOLUS FROM BAG 1 MG SOLN IV ONE (15:04)
--- NOTE | 2024-05-13 15:07 | ED ---
Weakness HPI - General Source: patient, EMS, RN notes reviewed Mode of arrival: EMS Limitations: no limitations <Ned Siddiqui - Last Filed: 05/13/24 16:16> <Jerald Messina - Last Filed: 05/13/24 18:15> - General Chief complaint: Weakness Stated complaint: AFIB,RVR Time Seen by Provider: 05/13/24 14:19 - History of Present Illness Initial comments: 84-year-old female presents emergency room via EMS from [facility] for evaluation of A-fib RVR. Patient states that she just was not feeling well states that she is just more weak and felt some palpitations when there. She does admit that she did not take her metoprolol this morning as she normally takes. Patient denies any chest pain no headache no dizziness no shortness of breath no other associated symptoms. (Ned Siddiqui) - Related Data Home Medications Medication Instructions Recorded Confirmed Atorvastatin [Lipitor] 10 mg PO HS 12/17/16 05/13/24 Apixaban [Eliquis] 5 mg PO BID 11/26/17 05/13/24 allopurinoL [Zyloprim] 100 mg PO DAILY 02/01/20 05/13/24 ALPRAZolam [Xanax] 0.25 mg PO DAILY PRN 10/31/22 05/13/24 Losartan [Cozaar] 50 mg PO DAILY 11/22/22 05/13/24 Escitalopram [Lexapro] 20 mg PO DAILY 02/25/24 05/13/24 Famotidine 20 mg PO BID 02/25/24 05/13/24 Cyanocobalamin (Vitamin B-12) 1,000 mcg PO DAILY 05/13/24 05/13/24 [Vitamin B-12] Fluoride (Sodium) [Sodium Fluoride 1 applic DENTAL BID 05/13/24 05/13/24 5000 Plus] Furosemide [Lasix] 20 mg PO BID 05/13/24 05/13/24 Gabapentin [Neurontin] 100 mg PO HS PRN 05/13/24 05/13/24 Levocetirizine Dihydrochloride 5 mg PO DAILY 05/13/24 05/13/24 [Xyzal] Magnesium Oxide [Mag-Ox] 400 mg PO BID 05/13/24 05/13/24 Metoprolol Succinate (ER) [Toprol 50 mg PO DAILY 05/13/24 05/13/24 Xl] Triamcinolone 0.1% Cream [Kenalog 1 applicatio TOPICAL BID PRN 05/13/24 05/13/24 0.1% Cream] rOPINIRole HCL [Requip] 2 mg PO BID 05/13/24 05/13/24 traMADol HCL 50 mg PO BID PRN 05/13/24 05/13/24 Previous Rx's Medication Instructions Recorded Cholecalciferol [Vitamin D3 (125 125 mcg PO DAILY 30 Days #30 tablet 03/26/21 Mcg = 5000 Iu)] Allergies Allergy/AdvReac Type Severity Reaction Status Date / Time amoxicillin [From Augmentin] Allergy Severe Verified 05/13/24 16:05 diarrhea clavulanic acid Allergy Severe Verified 05/13/24 16:05 [From Augmentin] diarrhea codeine Allergy Nausea & Verified 05/13/24 16:05 Vomiting, hives/rash hydrocodone [From Melvin] Allergy Rash/Hives Verified 05/13/24 16:05 morphine Allergy Nausea & Verified 05/13/24 16:05 Vomiting, rash/hives nitrofurantoin Allergy Unknown Verified 05/13/24 16:05 propoxyphene [From Darvon] Allergy Nausea & Verified 05/13/24 16:05 Vomiting, rash/hives Sulfa (Sulfonamide Allergy Rash/Hives Verified 05/13/24 16:05 Antibiotics) aripiprazole [From Abilify] AdvReac severe, Verified 05/13/24 16:05 increased anxiety. bupropion [From Wellbutrin] AdvReac severe, Verified 05/13/24 16:05 increased anxiety. Review of Systems ROS Other: All systems not noted in ROS Statement are negative. <Ned Siddiqui - Last Filed: 05/13/24 16:16> ROS Other: All systems not noted in ROS Statement are negative. <Jerald Messina - Last Filed: 05/13/24 18:15> ROS Statement: Those systems with pertinent positive or pertinent negative responses have been documented in the HPI. Past Medical History Past Medical History: Atrial Fibrillation, Chest Pain / Angina, Heart Failure, CVA/TIA, GERD/Reflux, Hyperlipidemia, Hypertension, Osteoarthritis (OA), Sleep Apnea/CPAP/BIPAP Additional Past Medical History / Comment(s): Pulmonary fibrosis. Other hx: DDD, DJD, SPINAL STENOSIS, chronic bilateral hip pain worse on R side, 2018 septic arthritis R wrist, occluded carotid right artery, TIA x 2, RLS, seasonal allergies, KEVIN with CPAP USED, UTIs, diverticular dx, HAD GERD IN PAST NONE SINCE HIATAL HERNIA SX.,CARDIOMYOPATHY, murmur. 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 History of Any Multi-Drug Resistant Organisms: None Reported Past Surgical History: Adenoidectomy, Appendectomy, Bladder Surgery, Cholecystectomy, Hysterectomy, Joint Replacement, Orthopedic Surgery, Tonsillectomy Additional Past Surgical History / Comment(s): bilateral hip replacments, R rotator cuff repair, vaginal hysterectomy with anterior and posterior repairs in 2001, sinus sx twice, niko cataracts-lens implants, hiatal hernia sx, bladder suspension, L breast bx-benign. Carotid surgery. Colonoscopy. Past Anesthesia/Blood Transfusion Reactions: No Reported Reaction, Motion Sickness Past Psychological History: Anxiety, Bipolar, Depression Smoking Status: Former smoker Past Alcohol Use History: None Reported Past Drug Use History: None Reported - Past Family History Mother Family Medical History: Cancer Additional Family Medical History / Comment(s): colon cancer Father Family Medical History: Congestive Heart Failure (CHF) Sister(s) Family Medical History: Cancer Additional Family Medical History / Comment(s): Breast cancer Daughter(s) Family Medical History: Cancer Additional Family Medical History / Comment(s): Cancer of the appendix. <Ned Siddiqui M - Last Filed: 05/13/24 16:16> General Exam Limitations: no limitations General appearance: alert, in no apparent distress Head exam: Present: atraumatic, normocephalic, normal inspection Neck exam: Present: normal inspection, full ROM. Absent: tenderness, meningismus, lymphadenopathy Respiratory exam: Present: normal lung sounds bilaterally. Absent: respiratory distress, wheezes, rales, rhonchi, stridor Cardiovascular Exam: Present: tachycardia, irregular rhythm. Absent: regular rate, normal rhythm GI/Abdominal exam: Present: soft, normal bowel sounds. Absent: distended, tenderness, guarding, rebound, rigid Neurological exam: Present: alert <Ned Siddiqui M - Last Filed: 05/13/24 16:16> Course Vital Signs 05/13/24 05/13/24 05/13/24 14:21 14:37 14:38 Temperature 98.0 F Pulse Rate 105 H Pulse Rate [ 105 H Right Sitting Radial] Respiratory 18 Rate Blood Pressure 142/87 O2 Sat by Pulse Oximetry 05/13/24 05/13/24 15:22 17:55 Temperature Pulse Rate 91 108 H Pulse Rate [ Right Sitting Radial] Respiratory 18 18 Rate Blood Pressure 125/84 133/93 O2 Sat by Pulse 99 98 Oximetry EKG Findings - EKG Comments: EKG Findings:: EKG performed at 14: 25 A-fib with RVR rate of 124 QRS 183 QT/QTc 323/396 - EKG Results: EKG: interpreted by HIRO <Ned Siddiqui - Last Filed: 05/13/24 16:16> Medical Decision Making - Lab Data Result diagrams: 05/13/24 14:51 05/13/24 14:51 <Ned Siddiqui - Last Filed: 05/13/24 16:16> - Lab Data Result diagrams: 05/13/24 14:51 05/13/24 14:51 <Jerald Messina - Last Filed: 05/13/24 18:15> - Medical Decision Making Patient signed out to me pending results of reevaluation. Briefly, patient presented for general weakness and feeling she was having some palpitations. She did not take her normal atrial fibrillation medication this morning, metoprolol. Workup returned unremarkable and patient was going to be cleared for discharge however she went into A-fib with RVR with heart rates in the 130s. Patient was administered a bolus of Cardizem and then it was realized that she did not take her morning metoprolol. The drip was canceled and she was given dose of her normal metoprolol. She was observed and urinalysis obtained for period of 2 hours after this and patient's heart rates improved with averaging between 90 bpm and 108 bpm. On reevaluation she is feeling improved and would like to go home. The only significant finding on workup was a hemolyzed potassium of 5.8 but no evidence of EKG changes on her EKG to suggest hyperkalemia. I believe she is stable for discharge home at this time and she was in agreement this plan. Strict return precautions discussed. I instructed the patient to follow up with their PCP in the next 1-3 days. I explained that the patient should return to the emergency department if they experience any worsening symptoms. Strict return precautions were discussed with the patient. The patient expressed understanding of these instructions. I answered all questions that the patient had. The patient was discharged home in good condition with their prescriptions and follow up information. Diagnosis/symptom? @ -Atrial fibrillation Acute, or Chronic, or Acute on Chronic? @ -Acute on chronic Uncomplicated (without systemic symptoms) or Complicated (systemic symptoms)? @ -Uncomplicated Side effects of treatment? @ -None Exacerbation, Progression, or Severe Exacerbation] @ -No Poses a threat to life or bodily function? @ -Unlikely at this time (Jerald Messina) - Lab Data Lab Results 05/13/24 05/13/24 05/13/24 Range/Units 14:51 14:51 14:51 WBC 8.2 (3.8-10.6) k/uL RBC 4.78 (3.80-5.40) m/uL Hgb 12.8 (11.4-16.0) gm/dL Hct 39.9 (34.0-46.0) % MCV 83.6 (80.0-100.0) fL MCH 26.7 (25.0-35.0) pg MCHC 32.0 (31.0-37.0) g/dL RDW 14.6 (11.5-15.5) % Plt Count 184 (150-450) k/uL MPV 8.1 Neutrophils % 65 % Lymphocytes % 23 % Monocytes % 9 % Eosinophils % 2 % Basophils % 0 % Neutrophils # 5.3 (1.3-7.7) k/uL Lymphocytes # 1.8 (1.0-4.8) k/uL Monocytes # 0.7 (0-1.0) k/uL Eosinophils # 0.2 (0-0.7) k/uL Basophils # 0.0 (0-0.2) k/uL Hypochromasia Slight PT 10.7 (10.0-12.5) sec INR 1.0 (<1.2) APTT 22.4 (22.0-30.0) sec Sodium 135 L (137-145) mmol/L Potassium 5.8 H (3.5-5.1) mmol/L Chloride 105 (98-107) mmol/L Carbon Dioxide 25 (22-30) mmol/L Anion Gap 5 mmol/L BUN 11 (7-17) mg/dL Creatinine 0.80 (0.52-1.04) mg/dL Est GFR (CKD-EPI)AfAm 79 (>60 ml/min/1.73 sqM) Est GFR (CKD-EPI)NonAf 68 (>60 ml/min/1.73 sqM) Glucose 101 H (74-99) mg/dL Calcium 9.8 (8.4-10.2) mg/dL Magnesium 1.8 (1.6-2.3) mg/dL Total Bilirubin 1.3 (0.2-1.3) mg/dL AST 39 H (14-36) U/L ALT 17 (4-34) U/L Alkaline Phosphatase 78 (38-126) U/L Troponin I (0.000-0.034) ng/mL Total Protein 6.2 L (6.3-8.2) g/dL Albumin 3.4 L (3.5-5.0) g/dL Urine Color Urine Appearance (Clear) Urine pH (5.0-8.0) Ur Specific [place] (1.001-1.035) Urine Protein (Negative) Urine Glucose (UA) (Negative) Urine Ketones (Negative) Urine Blood (Negative) Urine Nitrite (Negative) Urine Bilirubin (Negative) Urine Urobilinogen (<2.0) mg/dL Ur Leukocyte Esterase (Negative) 05/13/24 05/13/24 Range/Units 14:51 17:55 WBC (3.8-10.6) k/uL RBC (3.80-5.40) m/uL Hgb (11.4-16.0) gm/dL Hct (34.0-46.0) % MCV (80.0-100.0) fL MCH (25.0-35.0) pg MCHC (31.0-37.0) g/dL RDW (11.5-15.5) % Plt Count (150-450) k/uL MPV Neutrophils % % Lymphocytes % % Monocytes % % Eosinophils % % Basophils % % Neutrophils # (1.3-7.7) k/uL Lymphocytes # (1.0-4.8) k/uL Monocytes # (0-1.0) k/uL Eosinophils # (0-0.7) k/uL Basophils # (0-0.2) k/uL Hypochromasia PT (10.0-12.5) sec INR (<1.2) APTT (22.0-30.0) sec Sodium (137-145) mmol/L Potassium (3.5-5.1) mmol/L Chloride (98-107) mmol/L Carbon Dioxide (22-30) mmol/L Anion Gap mmol/L BUN (7-17) mg/dL Creatinine (0.52-1.04) mg/dL Est GFR (CKD-EPI)AfAm (>60 ml/min/1.73 sqM) Est GFR (CKD-EPI)NonAf (>60 ml/min/1.73 sqM) Glucose (74-99) mg/dL Calcium (8.4-10.2) mg/dL Magnesium (1.6-2.3) mg/dL Total Bilirubin (0.2-1.3) mg/dL AST (14-36) U/L ALT (4-34) U/L Alkaline Phosphatase (38-126) U/L Troponin I 0.014 (0.000-0.034) ng/mL Total Protein (6.3-8.2) g/dL Albumin (3.5-5.0) g/dL Urine Color Colorless Urine Appearance Clear (Clear) Urine pH 6.0 (5.0-8.0) Ur Specific [place] 1.003 (1.001-1.035) Urine Protein Negative (Negative) Urine Glucose (UA) Negative (Negative) Urine Ketones Negative (Negative) Urine Blood Negative (Negative) Urine Nitrite Negative (Negative) Urine Bilirubin Negative (Negative) Urine Urobilinogen <2.0 (<2.0) mg/dL Ur Leukocyte Esterase Negative (Negative) Disposition Is patient prescribed a controlled substance at d/c from ED?: No Time of Disposition: 16:16 <Ned Siddiqui - Last Filed: 05/13/24 16:16> <Jerald Messina - Last Filed: 05/13/24 18:15> Clinical Impression: Afib Disposition: HOME SELF-CARE Condition: Stable Instructions (If sedation given, give patient instructions): A-fib (Atrial Fibrillation) (ED) Additional Instructions: Please return to the Emergency Department if symptoms worsen or any other concerns. Referrals: Lan Wallace MD [Primary Care Provider] - 1-2 days
[2024-05-13 15:14] LABS: Partial Thromboplastin Time 22.4 sec (22.0-30.0); Prothrombin Time 10.7 sec (10.0-12.5)
[2024-05-13 15:28] LABS: ALT 17 U/L (4-34); African American GFR (CKD) 79 (>60 ml/min/1.73 sqM); Anion Gap 5 mmol/L; Blood Urea Nitrogen 11 mg/dL (7-17); Calcium 9.8 mg/dL (8.4-10.2); Carbon Dioxide 25 mmol/L (22-30); Chloride 105 mmol/L (98-107); Non-African American GFR(CKD) 68 (>60 ml/min/1.73 sqM); Sodium 135 mmol/L (137-145)
[2024-05-13 15:47] LABS: AST 39 U/L (14-36); Albumin 3.4 g/dL (3.5-5.0); Alkaline Phosphatase 78 U/L (38-126); Glucose 101 mg/dL (74-99); Magnesium 1.8 mg/dL (1.6-2.3); Potassium 5.8 mmol/L (3.5-5.1); Total Bilirubin 1.3 mg/dL (0.2-1.3); Total Protein 6.2 g/dL (6.3-8.2)
--- NOTE | 2024-05-13 15:54 | XR ---
EXAMINATION TYPE: XR chest 2V DATE OF EXAM: 05/13/2024 3:51 PM COMPARISON: Chest radiographs from 03/27/2023. CLINICAL INDICATION: Female, 84 years old with history of dysrhythmia; [facility] TECHNIQUE: XR chest 2V Frontal and lateral views of the chest. FINDINGS: Lungs/Pleura: There is no evidence of pleural effusion, focal consolidation, or pneumothorax. Pulmonary vascularity: Pulmonary vascular congestion. Heart/mediastinum: Cardiomediastinal silhouette is enlarged. Musculoskeletal: No acute osseous pathology. Other findings: None IMPRESSION: Cardiomegaly and mild pulmonary vascular congestion. Correlate with BNP for congestive heart failure. [facility], , 05/13/2024 3:51 PM
[2024-05-13] MEDS: METOPROLOL SUCCINATE (ER) 50 MG TAB.ER.24H PO STA (16:33)
[2024-05-13 17:58] VITALS: BP 133/93; PULSE 108
[2024-05-13 18:06] LABS: Appearance,Urine Clear (Clear); Bilirubin,Urine Negative (Negative); Blood,Urine Negative (Negative); Color,Urine Colorless; Glucose,Urine (UA) Negative (Negative); Ketones,Urine Negative (Negative); Leukocyte Esterase,Urine Negative (Negative); Nitrite,Urine Negative (Negative); Protein,Urine Negative (Negative); Specific Gravity,Urine 1.003 (1.001-1.035); Urobilinogen,Urine <2.0 mg/dL (<2.0)
== END 2024-05-13 18:23 | disposition home or self-care (01) ==
LOC: EC 14:15
DX: I11.9 Hypertensive heart disease without heart failure (principal); I48.91 Unspecified atrial fibrillation; Z87.891 Personal history of nicotine dependence; Z88.0 Allergy status to penicillin; Z88.5 Allergy status to narcotic agent; Z88.2 Allergy status to sulfonamides; Z88.1 Allergy status to other antibiotic agents; Z88.8 Allergy status to other drugs, medicaments and biological substances; Z79.899 Other long term (current) drug therapy
CPT/HCPCS: 36415; 71046; 80053; 81003; 83735; 84484; 85025; 85610; 85730; 93005; 96365; 96366; 96375; 99285

== ENCOUNTER → 2024-06-03 | Outpatient (CLI) | payer MEDICARE, BC ==
--- NOTE | 2024-06-03 14:28 | US ---
EXAMINATION TYPE: US kidneys/renal and bladder DATE OF EXAM: 06/03/2024 COMPARISON: NONE CLINICAL INDICATION: Female, 84 years old with history of N18.31 CHRONIC KIDNEY DISEASE, STAGE 3A; TECHNIQUE: Grayscale imaging of the bilateral kidneys and urinary bladder: FINDINGS: EXAM MEASUREMENTS: Right Kidney: 9.5x4.7x4.0cm Left Kidney: 10.2x5.3x4.7cm slightly limited exam due to overlying gas/pt body habitus Right Kidney: No hydronephrosis or masses seen Left Kidney: No hydronephrosis or masses seen Bladder: slightly limited visualization due to overlying bowel Bilateral Jets seen: yes IMPRESSION: No ultrasound abnormality of the kidneys [facility], , 06/03/2024 2:25 PM
== END | disposition home or self-care (01) ==
LOC: RADUSWWP 13:38
PROVIDERS: ATTEND Internal Medicine
DX: N18.31 Chronic kidney disease, stage 3a (principal)
CPT/HCPCS: 76770

== ENCOUNTER 2024-06-04 14:24 | Emergency (ER) | payer MEDICARE, BC ==
[2024-06-04 14:44] VITALS: RESP 18; TEMP 98.1
[2024-06-04 16:07] LABS: Basophils # (A) 0.02 10*3/uL (0.00-0.10); Basophils % (A) 0.2 %; Eosinophils # (A) 0.08 10*3/uL (0.04-0.35); Eosinophils % (A) 0.8 %; HCT 38.4 % (37.2-46.3); HGB 12.4 g/dL (12.0-15.0); Lymphocytes # (A) 1.28 10*3/uL (0.90-5.00); Lymphocytes % (A) 12.4 %; MCH 26.4 pg (27.0-32.0); MCHC 32.3 g/dL (32.0-37.0); MCV 81.7 fL (80.0-97.0); Mean Platelet Volume 8.8 fL (9.5-12.2); Monocytes # (A) 1.23 10*3/uL (0.20-1.00); Monocytes % (A) 11.9 %; Neutrophils % (A) 74.3 %; Platelet Count 188 10*3/uL (140-440); RDW 14.5 % (11.5-14.5); WBC 10.35 10*3/uL (4.50-10.00)
[2024-06-04 16:22] LABS: ALT 14 U/L (4-34); AST 21 U/L (14-36); African American GFR (CKD) 88 (>60 ml/min/1.73 sqM); Albumin 3.2 g/dL (3.5-5.0); Alkaline Phosphatase 97 U/L (38-126); Anion Gap 8 mmol/L; Blood Urea Nitrogen 11 mg/dL (7-17); Carbon Dioxide 27 mmol/L (22-30); Chloride 97 mmol/L (98-107); Glucose 100 mg/dL (74-99); Magnesium 1.7 mg/dL (1.6-2.3); Non-African American GFR(CKD) 76 (>60 ml/min/1.73 sqM); Potassium 3.5 mmol/L (3.5-5.1); Sodium 132 mmol/L (137-145); Total Bilirubin 1.6 mg/dL (0.2-1.3); Total Protein 5.9 g/dL (6.3-8.2)
[2024-06-04 16:23] LABS: INR 1.1 (<1.2); Partial Thromboplastin Time 25.1 sec (22.0-30.0); Prothrombin Time 11.7 sec (10.0-12.5)
--- NOTE | 2024-06-04 16:35 | XR ---
EXAMINATION TYPE: XR chest 2V DATE OF EXAM: 06/04/2024 4:28 PM COMPARISON: 05/13/2024 CLINICAL INDICATION: Female, 84 years old with history of pain: Shortness of breath TECHNIQUE: XR chest 2V views of the chest are obtained. FINDINGS: Scattered senescent parenchymal changes noted. Hyperinflation compatible with COPD. No evidence for infiltrate. No evidence for atelectasis. Heart size is stable. Mediastinal structures are stable and grossly unremarkable. No evidence for hilar prominence. Degenerative changes dorsal spine. IMPRESSION: 1. No evidence for acute pulmonary disease. [facility], , 06/04/2024 4:32 PM
--- NOTE | 2024-06-04 16:35 | XR ---
EXAMINATION TYPE: XR cervical spine comp DATE OF EXAM: 06/04/2024 4:28 PM INDICATION: Patient age:Female; 84 years old; Reason for study: pain; PHH, pain COMPARISON: CT brain C-spine 12/19/2016 TECHNIQUE: The cervical spine was imaged in frontal, lateral, bilateral oblique, and odontoid project ions. Frontal, lateral, odontoid and bilateral oblique. FINDINGS: The osseous structures show normal alignment without evidence of an acute fracture. There are osteoph ytes noted throughout the cervical spine on the anterior and lateral aspects of the vertebral bodies. Multilevel disc space narrowing with endplate sclerosis of the lower cervical spine. Pedicles are in tact. Soft tissues are within normal limits. The odontoid appears intact. IMPRESSION: 1. No fracture or dislocation. 2. Moderate degenerative disc disease changes of the cervical spine. [facility], , 06/04/2024 4:32 PM
--- NOTE | 2024-06-04 17:13 | ED ---
General Adult HPI - General Chief complaint: Neck Pain/Injury Stated complaint: neck pain Time Seen by Provider: 06/04/24 14:48 Source: patient, family, RN notes reviewed Mode of arrival: EMS - History of Present Illness Initial comments: 84-year-old female presents to the emergency department for evaluation of neck and upper back pain. Patient states that this been going on for around a week. She notes that the pain was worse today. She does note that the pain is worse with movement. She notes that it is sharp stabbing pains. She denies any known injury. Denies any fever, chills. Denies chest pain, shortness of breath. She has not taken anything to help with the pain. She reports having Toradol in the ambulance and had resolution of her symptoms following this. - Related Data Home Medications Medication Instructions Recorded Confirmed Atorvastatin [Lipitor] 10 mg PO HS 12/17/16 05/13/24 Apixaban [Eliquis] 5 mg PO BID 11/26/17 05/13/24 allopurinoL [Zyloprim] 100 mg PO DAILY 02/01/20 05/13/24 ALPRAZolam [Xanax] 0.25 mg PO DAILY PRN 10/31/22 05/13/24 Losartan [Cozaar] 50 mg PO DAILY 11/22/22 05/13/24 Escitalopram [Lexapro] 20 mg PO DAILY 02/25/24 05/13/24 Famotidine 20 mg PO BID 02/25/24 05/13/24 Cyanocobalamin (Vitamin B-12) 1,000 mcg PO DAILY 05/13/24 05/13/24 [Vitamin B-12] Fluoride (Sodium) [Sodium Fluoride 1 applic DENTAL BID 05/13/24 05/13/24 5000 Plus] Furosemide [Lasix] 20 mg PO BID 05/13/24 05/13/24 Gabapentin [Neurontin] 100 mg PO HS PRN 05/13/24 05/13/24 Levocetirizine Dihydrochloride 5 mg PO DAILY 05/13/24 05/13/24 [Xyzal] Magnesium Oxide [Mag-Ox] 400 mg PO BID 05/13/24 05/13/24 Metoprolol Succinate (ER) [Toprol 50 mg PO DAILY 05/13/24 05/13/24 Xl] Triamcinolone 0.1% Cream [Kenalog 1 applicatio TOPICAL BID PRN 05/13/24 05/13/24 0.1% Cream] rOPINIRole HCL [Requip] 2 mg PO BID 05/13/24 05/13/24 traMADol HCL 50 mg PO BID PRN 05/13/24 05/13/24 Previous Rx's Medication Instructions Recorded Cholecalciferol [Vitamin D3 (125 125 mcg PO DAILY 30 Days #30 tablet 03/26/21 Mcg = 5000 Iu)] Celecoxib [CeleBREX] 200 mg PO BID PRN #6 cap 06/04/24 methocarbamoL [Robaxin] 1,000 mg PO QID PRN #8 tab 06/04/24 Allergies Allergy/AdvReac Type Severity Reaction Status Date / Time amoxicillin [From Augmentin] Allergy Severe Verified 06/04/24 14:45 diarrhea clavulanic acid Allergy Severe Verified 06/04/24 14:45 [From Augmentin] diarrhea codeine Allergy Nausea & Verified 06/04/24 14:45 Vomiting, hives/rash hydrocodone [From [place]] Allergy Rash/Hives Verified 06/04/24 14:45 morphine Allergy Nausea & Verified 06/04/24 14:45 Vomiting, rash/hives nitrofurantoin Allergy Unknown Verified 06/04/24 14:45 propoxyphene [From [place]] Allergy Nausea & Verified 06/04/24 14:45 Vomiting, rash/hives Sulfa (Sulfonamide Allergy Rash/Hives Verified 06/04/24 14:45 Antibiotics) aripiprazole [From Abilify] AdvReac severe, Verified 06/04/24 14:45 increased anxiety. bupropion [From Wellbutrin] AdvReac severe, Verified 06/04/24 14:45 increased anxiety. Review of Systems ROS Statement: Those systems with pertinent positive or pertinent negative responses have been documented in the HPI. ROS Other: All systems not noted in ROS Statement are negative. Past Medical History Past Medical History: Atrial Fibrillation, Chest Pain / Angina, Heart Failure, CVA/TIA, GERD/Reflux, Hyperlipidemia, Hypertension, Osteoarthritis (OA), Sleep Apnea/CPAP/BIPAP Additional Past Medical History / Comment(s): Pulmonary fibrosis. Other hx: DDD, DJD, SPINAL STENOSIS, chronic bilateral hip pain worse on R side, 2018 septic arthritis R wrist, occluded carotid right artery, TIA x 2, RLS, seasonal allergies, KEVIN with CPAP USED, UTIs, diverticular dx, HAD GERD IN PAST NONE SINCE HIATAL HERNIA SX.,CARDIOMYOPATHY, murmur. 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 History of Any Multi-Drug Resistant Organisms: None Reported Past Surgical History: Adenoidectomy, Appendectomy, Bladder Surgery, Cholecystectomy, Hysterectomy, Joint Replacement, Orthopedic Surgery, Tonsillectomy Additional Past Surgical History / Comment(s): bilateral hip replacments, R rotator cuff repair, vaginal hysterectomy with anterior and posterior repairs in 2001, sinus sx twice, niko cataracts-lens implants, hiatal hernia sx, bladder suspension, L breast bx-benign. Carotid surgery. Colonoscopy. Past Anesthesia/Blood Transfusion Reactions: No Reported Reaction, Motion Sickness Past Psychological History: Anxiety, Bipolar, Depression Smoking Status: Former smoker Past Alcohol Use History: None Reported Past Drug Use History: None Reported - Past Family History Mother Family Medical History: Cancer Additional Family Medical History / Comment(s): colon cancer Father Family Medical History: Congestive Heart Failure (CHF) Sister(s) Family Medical History: Cancer Additional Family Medical History / Comment(s): Breast cancer Daughter(s) Family Medical History: Cancer Additional Family Medical History / Comment(s): Cancer of the appendix. General Exam Limitations: no limitations General appearance: alert, in no apparent distress Head exam: Present: atraumatic, normocephalic, normal inspection Eye exam: Present: normal appearance, PERRL, EOMI. Absent: scleral icterus, conjunctival injection, periorbital swelling ENT exam: Present: normal exam, mucous membranes moist Neck exam: Present: normal inspection, full ROM. Absent: tenderness, meningismus, lymphadenopathy Respiratory exam: Present: normal lung sounds bilaterally. Absent: respiratory distress, wheezes, rales, rhonchi, stridor Cardiovascular Exam: Present: regular rate, normal rhythm, normal heart sounds. Absent: systolic murmur, diastolic murmur, rubs, gallop, clicks Extremities exam: Present: normal inspection, full ROM, normal capillary refill. Absent: tenderness, pedal edema, joint swelling, calf tenderness Back exam: Present: normal inspection, full ROM. Absent: tenderness Neurological exam: Present: alert, oriented X3 Psychiatric exam: Present: normal affect, normal mood Skin exam: Present: warm, dry, intact, normal color. Absent: rash Course Vital Signs 06/04/24 06/04/24 14:39 18:21 Temperature 98.1 F Pulse Rate 104 H 97 Respiratory 18 18 Rate Blood Pressure 114/75 119/78 O2 Sat by Pulse 95 97 Oximetry Medical Decision Making - Medical Decision Making Was pt. sent in by a medical professional or institution (, [facility], LIPCOAT SPRAYER, urgent care, hospital, or [facility]...) When possible be specific @ -No Did you speak to anyone other than the patient for history (EMS, parent, family, police, friend...)? What history was obtained from this source @ -No Did you review nursing and triage notes (agree or disagree)? Why? @ -I reviewed and agree with nursing and triage notes Were old charts reviewed (outside hosp., previous admission, EMS record, old EKG, old radiological studies, urgent care reports/EKG's, [facility] records)? Report findings @ -No old charts were reviewed Differential Diagnosis (chest pain, altered mental status, abdominal pain women, abdominal pain men, vaginal bleeding, weakness, fever, dyspnea, syncope, headache, dizziness, GI bleed, back pain, seizure, CVA, palpatations, mental health, musculoskeletal)? @ -Differential Back Pain: Strain, zoster, cauda equina syndrome, epidural abscess, vertebral osteomyelitis, discitis, fracture, subluxation, disc herniation, DJD, spinal stenosis, dissection, AAA, pancreatitis, peptic ulcer disease, pyelonephritis, kidney stone, this is not meant to be an all-inclusive list. ] EKG interpreted by me (3pts min.). @ -none X-rays interpreted by me (1pt min.). @ -Chest x-ray reveals no acute process X-ray cervical spine reveals moderate degenerative disease without evidence for acute process CT interpreted by me (1pt min.). @ -None done U/S interpreted by me (1pt. min.). @ -None done What testing was considered but not performed or refused? (CT, X-rays, U/S, labs)? Why? @ -None What meds were considered but not given or refused? Why? @ -None Did you discuss the management of the patient with other professionals (professionals i.e. , [facility], LIPCOAT SPRAYER, lab, RT, psych nurse, bilingual social worker, industrial pharmacist, teacher, railway patrol officer, case packer and sealer)? Give summary @ -No Was smoking cessation discussed for >3mins.? @ -No Was critical care preformed (if so, how long)? @ -No Were there social determinants of health that impacted care today? How? (Homelessness, low income, unemployed, alcoholism, drug addiction, transportation, low edu. Level, literacy, decrease access to med. care, [facility], rehab)? @ -No Was there de-escalation of care discussed even if they declined (Discuss DNR or withdrawal of care, Hospice)? DNR status @ -No What co-morbidities impacted this encounter? (DM, HTN, Smoking, COPD, CAD, Cancer, CVA, ARF, Chemo, Hep., AIDS, mental health diagnosis, sleep apnea, morbid obesity)? @ -None Was patient admitted / discharged? Hospital course, mention meds given and route, prescriptions, significant lab abnormalities, going to OR and other pertinent info. @ -Discharge. Patient presented to emergency department for evaluation of neck and back pain. X-rays obtained revealing no acute process, moderate dege nerative changes in the cervical spine. Laboratory studies revealNo significant leukocytosis, hemoglobin 12.4; normal coagulation studies; mild hyponatremia. Negative troponin. Patient was administered Toradol by EMS. She does report complete resolution of her symptoms following this medication. The patient will be discharged home. She is advised to follow-up with her primary care provider. She is understanding agreeable with plan. Patient stable at time of discharge. Case discussed with Dr. Howard Undiagnosed new problem with uncertain prognosis? @ -No Drug Therapy requiring intensive monitoring for toxicity (Heparin, Nitro, Insulin, Cardizem)? @ -No Were any procedures done? @ -No Diagnosis/symptom? @ -Neck strain Acute, or Chronic, or Acute on Chronic? @ -acute Uncomplicated (without systemic symptoms) or Complicated (systemic symptoms)? @ -uncomplicated Side effects of treatment? @ -No Exacerbation, Progression, or Severe Exacerbation? @ -No Poses a threat to life or bodily function? How? (Chest pain, [place], [place], pneumonia, PE, COPD, DKA, ARF, appy, cholecystitis, CVA, Diverticulitis, Homicidal, Suicidal, threat to staff... and all critical care pts) @ -No - Lab Data Result diagrams: 06/04/24 15:54 06/04/24 15:54 Lab Results 06/04/24 06/04/24 06/04/24 Range/Units 15:54 15:54 15:54 WBC 10.35 H (4.50-10.00) 10*3/uL RBC 4.70 (4.10-5.20) 10*6/uL Hgb 12.4 (12.0-15.0) g/dL Hct 38.4 (37.2-46.3) % MCV 81.7 (80.0-97.0) fL MCH 26.4 L (27.0-32.0) pg MCHC 32.3 (32.0-37.0) g/dL Plt Count 188 (140-440) 10*3/uL MPV 8.8 L (9.5-12.2) fL Immature Gran % (Auto) 0.4 % Neutrophils % 74.3 % Lymphocytes % 12.4 % Monocytes % 11.9 % Eosinophils % 0.8 % Basophils % 0.2 % Immature Gran # 0.04 (0.00-0.04) 10*3/uL Neutrophils # 7.70 (1.80-7.70) 10*3/uL Lymphocytes # 1.28 (0.90-5.00) 10*3/uL Monocytes # 1.23 H (0.20-1.00) 10*3/uL Eosinophils # 0.08 (0.04-0.35) 10*3/uL Basophils # 0.02 (0.00-0.10) 10*3/uL PT 11.7 (10.0-12.5) sec INR 1.1 (<1.2) APTT 25.1 (22.0-30.0) sec Sodium 132 L (137-145) mmol/L Potassium 3.5 (3.5-5.1) mmol/L Chloride 97 L (98-107) mmol/L Carbon Dioxide 27 (22-30) mmol/L Anion Gap 8 mmol/L BUN 11 (7-17) mg/dL Creatinine 0.73 (0.52-1.04) mg/dL Est GFR (CKD-EPI)AfAm 88 (>60 ml/min/1.73 sqM) Est GFR (CKD-EPI)NonAf 76 (>60 ml/min/1.73 sqM) Glucose 100 H (74-99) mg/dL Calcium 10.0 (8.4-10.2) mg/dL Magnesium 1.7 (1.6-2.3) mg/dL Total Bilirubin 1.6 H (0.2-1.3) mg/dL AST 21 (14-36) U/L ALT 14 (4-34) U/L Alkaline Phosphatase 97 (38-126) U/L Troponin I (0.000-0.034) ng/mL Total Protein 5.9 L (6.3-8.2) g/dL Albumin 3.2 L (3.5-5.0) g/dL // Range/Units 15:54 WBC (4.50-10.00) 10*3/uL RBC (4.10-5.20) 10*6/uL Hgb (12.0-15.0) g/dL Hct (37.2-46.3) % MCV (80.0-97.0) fL MCH (27.0-32.0) pg MCHC (32.0-37.0) g/dL Plt Count (140-440) 10*3/uL MPV (9.5-12.2) fL Immature Gran % (Auto) % Neutrophils % % Lymphocytes % % Monocytes % % Eosinophils % % Basophils % % Immature Gran # (0.00-0.04) 10*3/uL Neutrophils # (1.80-7.70) 10*3/uL Lymphocytes # (0.90-5.00) 10*3/uL Monocytes # (0.20-1.00) 10*3/uL Eosinophils # (0.04-0.35) 10*3/uL Basophils # (0.00-0.10) 10*3/uL PT (10.0-12.5) sec INR (<1.2) APTT (22.0-30.0) sec Sodium (137-145) mmol/L Potassium (3.5-5.1) mmol/L Chloride (98-107) mmol/L Carbon Dioxide (22-30) mmol/L Anion Gap mmol/L BUN (7-17) mg/dL Creatinine (0.52-1.04) mg/dL Est GFR (CKD-EPI)AfAm (>60 ml/min/1.73 sqM) Est GFR (CKD-EPI)NonAf (>60 ml/min/1.73 sqM) Glucose (74-99) mg/dL Calcium (8.4-10.2) mg/dL Magnesium (1.6-2.3) mg/dL Total Bilirubin (0.2-1.3) mg/dL AST (14-36) U/L ALT (4-34) U/L Alkaline Phosphatase (38-126) U/L Troponin I <0.012 (0.000-0.034) ng/mL Total Protein (6.3-8.2) g/dL Albumin (3.5-5.0) g/dL Disposition Clinical Impression: Strain of neck muscle Disposition: HOME SELF-CARE Condition: Stable Instructions (If sedation given, give patient instructions): Cervical Strain (ED) Additional Instructions: Please follow-up with your doctor. Return to the emergency department for new or worsening symptoms. Prescriptions: Celecoxib [CeleBREX] 200 mg PO BID PRN #6 cap PRN Reason: Pain methocarbamoL [Robaxin] 1,000 mg PO QID PRN #8 tab PRN Reason: Muscle Spasm Is patient prescribed a controlled substance at d/c from ED?: No Referrals: Lan Wallace MD [Primary Care Provider] - 1-2 days
[2024-06-04] MEDS: traMADol 50 MG STARTER PACK 3 TAB BTL PO STA (18:13)
[2024-06-04 18:23] VITALS: BP 119/78; PULSE 97
== END 2024-06-04 18:37 | disposition home or self-care (01) ==
LOC: EC 14:24
DX: S16.1XXA Strain of muscle, fascia and tendon at neck level, initial encounter (principal); Z86.73 Personal history of transient ischemic attack (TIA), and cerebral infarction without residual deficits; Z87.891 Personal history of nicotine dependence; Z88.2 Allergy status to sulfonamides; Z88.5 Allergy status to narcotic agent; Z88.0 Allergy status to penicillin; Z88.1 Allergy status to other antibiotic agents; Z88.8 Allergy status to other drugs, medicaments and biological substances; X50.0XXA Overexertion from strenuous movement or load, initial encounter
CPT/HCPCS: 36415; 71046; 72050; 80053; 83735; 84484; 85025; 85610; 85730; 99284

== ENCOUNTER → 2024-06-16 | Outpatient (CLI) | payer MEDICARE, BC ==
[2024-06-16 11:34] VITALS: BP 117/81; PULSE 120; RESP 16; TEMP 98
--- NOTE | 2024-06-16 12:26 | P.PROGSL ---
Subjective DATE: 06/16/2024 FOLLOW UP VISIT. Patient with obstructive sleep apnea hypopnea syndrome return to sleep center for follow-up visit. Information from previous visit have been reviewed. Patient is using PAP equipment , getting PAP supplies in time. Patient feels more tiredness and sometimes shortness of breath during the day and night. The patient does not have significant problems with the mask, PAP unit and humidification. [place] sleepiness scale is 4. I checked information from PAP unit. PAP unit pressure 5-12.4, average 11.6 cm H2O. Usage is 50% for more then 4 hours, average 3.7 hours per night. Leak is 17 l/m, which is in acceptable range. Apnea Hypopnea Index is significantly increased to 19.2, which includes 7.3 central apneas. MEDICATIONS have been reviewed, please see below. During physical exam: GENERAL: A pleasant patient without any distress. VITAL SIGNS: Please see below, weight is 147 lbs. HEENT: PERRLA, EOMI.low position of soft palate, [place] 3. NECK: Supple. No JVD. LUNGS: Clear to percussion and to auscultation. Good air exchange. No wheezing or rhonchi. HEART: S1, S2 irregularly irregular. ABDOMEN: Soft and nontender.[] EXTREMITIES: No clubbing or cyanosis. TALENT MANAGER: Awake, alert, and oriented x3. No focal deficit. Impressions: 1. Obstructive sleep apnea-hypopnea syndrome. Patient demonstrated slightly low compliance with treatment, apnea hypopnea index increased significantly to 19.2 including some central apneas. 2. Atrial fibrillation. 3. Hypertension. 4. Hyperlipidemia. 5. Gout. 6. Back problems. 7. History of restless leg syndrome. Plan: 1. PAP titration for correction of respiratory abnormalities during sleep. 2. Sleep hygiene with regular time in bed for at least 7.5-8 hours 3. PAP unit should stay lower then position of the head. 4. Advised patient to remove all remaining water from humidifier canister daily and make it dry after each usage. Refill canister with fresh distilled water before each usage. 5. Watching weight. 6. Precautions related to driving. No driving if feel any sleepiness. 7. I will maintain prescription for PAP supplies including mask, tube, filters. 8. Following plan after reading titration sleep study. Thank you very much for allowing me to participate in the management of your patient. Rk Stefadu, MD, PhD, FAASM. Diplomat of [place] [employer], Sleep Medicine Board by [place] [employer] Torch Operator of [facility] [place] Objective - Vital Signs Vital Signs: Vital Signs Temp 98 F 06/16/24 11:33 Pulse 120 H 06/16/24 11:33 Resp 16 06/16/24 11:33 BP 117/81 06/16/24 11:33 Pulse Ox 94 L 06/16/24 11:33 FiO2 Intake & Output 06/15/24 06/16/24 06/16/24 18:59 06:59 18:59 Weight 66.678 kg Home Medications: Home Medications Medication Instructions Recorded Confirmed Type Atorvastatin [Lipitor] 10 mg PO HS 12/17/16 05/13/24 History Apixaban [Eliquis] 5 mg PO BID 11/26/17 05/13/24 History allopurinoL [Zyloprim] 100 mg PO DAILY 02/01/20 05/13/24 History Cholecalciferol [Vitamin D3 (125 125 mcg PO DAILY 30 Days #30 tablet 03/26/21 05/13/24 Rx Mcg = 5000 Iu)] ALPRAZolam [Xanax] 0.25 mg PO DAILY PRN 10/31/22 05/13/24 History Losartan [Cozaar] 50 mg PO DAILY 11/22/22 05/13/24 History Escitalopram [Lexapro] 20 mg PO DAILY 02/25/24 05/13/24 History Famotidine 20 mg PO BID 02/25/24 05/13/24 History Cyanocobalamin (Vitamin B-12) 1,000 mcg PO DAILY 05/13/24 05/13/24 History [Vitamin B-12] Fluoride (Sodium) [Sodium Fluoride 1 applic DENTAL BID 05/13/24 05/13/24 History 5000 Plus] Furosemide [Lasix] 20 mg PO BID 05/13/24 05/13/24 History Gabapentin [Neurontin] 100 mg PO HS PRN 05/13/24 05/13/24 History Levocetirizine Dihydrochloride 5 mg PO DAILY 05/13/24 05/13/24 History [Xyzal] Magnesium Oxide [Mag-Ox] 400 mg PO BID 05/13/24 05/13/24 History Metoprolol Succinate (ER) [Toprol 50 mg PO DAILY 05/13/24 05/13/24 History Xl] Triamcinolone 0.1% Cream [Kenalog 1 applicatio TOPICAL BID PRN 05/13/24 05/13/24 History 0.1% Cream] rOPINIRole HCL [Requip] 2 mg PO BID 05/13/24 05/13/24 History traMADol HCL 50 mg PO BID PRN 05/13/24 05/13/24 History Celecoxib [CeleBREX] 200 mg PO BID PRN #6 cap 06/04/24 Rx methocarbamoL [Robaxin] 1,000 mg PO QID PRN #8 tab 06/04/24 Rx
== END ==
LOC: 3 N SLEEP 11:13
PROVIDERS: ATTEND Internal Medicine
DX: G47.33 Obstructive sleep apnea (adult) (pediatric) (principal); I10 Essential (primary) hypertension; I48.91 Unspecified atrial fibrillation; E78.5 Hyperlipidemia, unspecified; M10.9 Gout, unspecified; Z87.39 Personal history of other diseases of the musculoskeletal system and connective tissue; Z99.89 Dependence on other enabling machines and devices; Z88.1 Allergy status to other antibiotic agents; Z88.5 Allergy status to narcotic agent; Z88.2 Allergy status to sulfonamides; Z88.8 Allergy status to other drugs, medicaments and biological substances; Z87.891 Personal history of nicotine dependence
CPT/HCPCS: 99212

== ENCOUNTER 2024-06-22 20:04 | Outpatient (CLI) | payer MEDICARE, BC ==
--- NOTE | 2024-06-23 14:46 | P.PCN ---
Description of Procedure: CLINICAL: Titration with positive air pressure has been done for correction of respiratory abnormalities during sleep. DESCRIPTION OF PROCEDURE: The standard montage for clinical polysomnography included the electroencephalogram, the electrocardiogram, the mentalis surface electromyography and Lead II cardiography. The respiratory battery consisted of measurements of nasal /buccal air flow, pressure transducer measurements from the nose, thoracic and /or abdominal effort and intercostal surface electromyography. Video monitoring has been done to check for any parasomnia events. Nocturnal oxyhemoglobin saturations were obtained by finger oximetry. Step-wan titration with positive airway pressure was utilized to control respiratory events. Raw data of sleep recording has been reviewed and is adequate. RESULTS: Sleep efficiency was slightly decreased to 84.5%. Latency to sleep onset was normal 8.5 minutes.]. Sleep architecture showed stage N1 9.7%, Delta sleep was absent 0%, REM sleep was extremely short 3.4%. Heart rate was minimum 75 BPM, maximum 96 BPM, average 85 BPM, atrial fibrillation. EMG showed 0 periodic limb movements per hour. PAP titration have been done with CPAP up to the pressure 10 cm H2O. Patient had problems with CPAP, switched to BPAP. BPAP titrated up to 24/20 cm H2O. The best results were at the pressure 20/16 cm H2O. Apnea hypopnea index reduced to 10.3. IMPRESSION: 1. Obstructive sleep apnea hypopnea syndrome improved, but not normalized on PAP treatment. 2. No significant periodic limb movements have been documented. 3. Atrial fibrillation. Please see other impressions from consultation. PLAN: 1. The patient will have treatment with positive air pressure equipment with the level of pressure auto BiPAP with maximal inspiratory pressure 21, minimal expiratory pressure 7, pressure support 4 cm H2O and should use it every night for the whole night. 2. Watching weight. 3. Sleep hygiene with regular time in bed for at least 8 hours. 4. No driving if feeling any sleepiness. 5. I will see the patient for follow up visit to explain the results of the test, recommendations, check compliance with treatment and make any necessary adjustment related to mask fitting, pressure and humidification. Thank you very much for allowing me to participate in the management of your patient. Sincerely, Rk White MD, PhD, FAASM Diplomat of [employer] [employer] Sleep Medicine Board of [place] [employer] Sales And Marketing Analyst of [facility] [place] cc: Lan Wallace MD
== END 2024-06-23 08:45 | disposition home or self-care (01) ==
LOC: 3 N SLEEP 20:04
PROVIDERS: ATTEND Internal Medicine
DX: G47.33 Obstructive sleep apnea (adult) (pediatric) (principal); I48.91 Unspecified atrial fibrillation; Z99.89 Dependence on other enabling machines and devices; Z88.8 Allergy status to other drugs, medicaments and biological substances; Z88.1 Allergy status to other antibiotic agents; Z88.5 Allergy status to narcotic agent; Z88.2 Allergy status to sulfonamides; Z88.6 Allergy status to analgesic agent; Z87.891 Personal history of nicotine dependence
CPT/HCPCS: 95811

== ENCOUNTER 2024-09-01 20:03 | Emergency (ER) | payer MEDICARE, BC ==
[2024-09-01 20:13] VITALS: RESP 18; TEMP 97.3
--- NOTE | 2024-09-01 20:22 | ED ---
Weakness HPI - General Chief complaint: Weakness Stated complaint: Weakness Time Seen by Provider: 09/01/24 20:03 Source: patient, EMS, RN notes reviewed, old records reviewed Mode of arrival: EMS Limitations: no limitations - History of Present Illness Initial comments: This is a 84 female to ER for weakness today. Patient is brought in by EMS known to have cellulitis which she is receiving treatment for both lower extremities. Patient herself is without any significant new complaints, concern for UTI and altered mental status with persistent weakness. No chest pain no shortness of breath no headache MD Complaint: generalized weakness, lack of energy -: days(s) Location: generalized Severity: mild Consistency: constant Improves with: none Worsens with: none Context: recent illness, history of similar Associated Symptoms: denies other symptoms - Related Data Home Medications Medication Instructions Recorded Confirmed Atorvastatin [Lipitor] 10 mg PO HS 12/17/16 05/13/24 Apixaban [Eliquis] 5 mg PO BID 11/26/17 05/13/24 allopurinoL [Zyloprim] 100 mg PO DAILY 02/01/20 05/13/24 ALPRAZolam [Xanax] 0.25 mg PO DAILY PRN 10/31/22 05/13/24 Losartan [Cozaar] 50 mg PO DAILY 11/22/22 05/13/24 Escitalopram [Lexapro] 20 mg PO DAILY 02/25/24 05/13/24 Famotidine 20 mg PO BID 02/25/24 05/13/24 Cyanocobalamin (Vitamin B-12) 1,000 mcg PO DAILY 05/13/24 05/13/24 [Vitamin B-12] Fluoride (Sodium) [Sodium Fluoride 1 applic DENTAL BID 05/13/24 05/13/24 5000 Plus] Furosemide [Lasix] 20 mg PO BID 05/13/24 05/13/24 Gabapentin [Neurontin] 100 mg PO HS PRN 05/13/24 05/13/24 Levocetirizine Dihydrochloride 5 mg PO DAILY 05/13/24 05/13/24 [Xyzal] Magnesium Oxide [Mag-Ox] 400 mg PO BID 05/13/24 05/13/24 Metoprolol Succinate (ER) [Toprol 50 mg PO DAILY 05/13/24 05/13/24 Xl] Triamcinolone 0.1% Cream [Kenalog 1 applicatio TOPICAL BID PRN 05/13/24 05/13/24 0.1% Cream] rOPINIRole HCL [Requip] 2 mg PO BID 05/13/24 05/13/24 traMADol HCL 50 mg PO BID PRN 05/13/24 05/13/24 Previous Rx's Medication Instructions Recorded Cholecalciferol [Vitamin D3 (125 125 mcg PO DAILY 30 Days #30 tablet 03/26/21 Mcg = 5000 Iu)] Celecoxib [CeleBREX] 200 mg PO BID PRN #6 cap 06/04/24 methocarbamoL [Robaxin] 1,000 mg PO QID PRN #8 tab 06/04/24 Allergies Allergy/AdvReac Type Severity Reaction Status Date / Time amoxicillin [From Augmentin] Allergy Severe Verified 06/04/24 14:45 diarrhea clavulanic acid Allergy Severe Verified 06/04/24 14:45 [From Augmentin] diarrhea codeine Allergy Nausea & Verified 06/04/24 14:45 Vomiting, hives/rash hydrocodone [From [place]] Allergy Rash/Hives Verified 06/04/24 14:45 morphine Allergy Nausea & Verified 06/04/24 14:45 Vomiting, rash/hives nitrofurantoin Allergy Unknown Verified 06/04/24 14:45 propoxyphene [From Darvon] Allergy Nausea & Verified 06/04/24 14:45 Vomiting, rash/hives Sulfa (Sulfonamide Allergy Rash/Hives Verified 06/04/24 14:45 Antibiotics) aripiprazole [From Abilify] AdvReac severe, Verified 06/04/24 14:45 increased anxiety. bupropion [From Wellbutrin] AdvReac severe, Verified 06/04/24 14:45 increased anxiety. Review of Systems ROS Statement: Those systems with pertinent positive or pertinent negative responses have been documented in the HPI. ROS Other: All systems not noted in ROS Statement are negative. Past Medical History Past Medical History: Atrial Fibrillation, Chest Pain / Angina, Heart Failure, CVA/TIA, GERD/Reflux, Hyperlipidemia, Hypertension, Osteoarthritis (OA), Sleep Apnea/CPAP/BIPAP Additional Past Medical History / Comment(s): Pulmonary fibrosis. Other hx: DDD, DJD, SPINAL STENOSIS, chronic bilateral hip pain worse on R side, 2018 septic arthritis R wrist, occluded carotid right artery, TIA x 2, RLS, seasonal allergies, KEVIN with CPAP USED, UTIs, diverticular dx, HAD GERD IN PAST NONE SINCE HIATAL HERNIA SX.,CARDIOMYOPATHY, murmur. 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 History of Any Multi-Drug Resistant Organisms: None Reported Past Surgical History: Adenoidectomy, Appendectomy, Bladder Surgery, Cholecystectomy, Hysterectomy, Joint Replacement, Orthopedic Surgery, Tonsillectomy Additional Past Surgical History / Comment(s): bilateral hip replacments, R rotator cuff repair, vaginal hysterectomy with anterior and posterior repairs in 2001, sinus sx twice, niko cataracts-lens implants, hiatal hernia sx, bladder suspension, L breast bx-benign. Carotid surgery. Colonoscopy. Past Anesthesia/Blood Transfusion Reactions: No Reported Reaction, Motion Sickness Past Psychological History: Anxiety, Bipolar, Depression Smoking Status: Former smoker Past Alcohol Use History: None Reported Past Drug Use History: None Reported - Past Family History Mother Family Medical History: Cancer Additional Family Medical History / Comment(s): colon cancer Father Family Medical History: Congestive Heart Failure (CHF) Sister(s) Family Medical History: Cancer Additional Family Medical History / Comment(s): Breast cancer Daughter(s) Family Medical History: Cancer Additional Family Medical History / Comment(s): Cancer of the appendix. General Exam Limitations: no limitations General appearance: alert, in no apparent distress Head exam: Present: atraumatic, normocephalic, normal inspection Eye exam: Present: normal appearance, PERRL, EOMI. Absent: scleral icterus, conjunctival injection, periorbital swelling ENT exam: Present: normal exam, mucous membranes moist Neck exam: Present: normal inspection. Absent: tenderness, meningismus, lymphadenopathy Respiratory exam: Present: normal lung sounds bilaterally. Absent: respiratory distress, wheezes, rales, rhonchi, stridor Cardiovascular Exam: Present: regular rate, normal rhythm, normal heart sounds. Absent: systolic murmur, diastolic murmur, rubs, gallop, clicks GI/Abdominal exam: Present: soft, normal bowel sounds. Absent: distended, tenderness, guarding, rebound, rigid Extremities exam: Present: normal inspection, full ROM, normal capillary refill. Absent: tenderness, pedal edema, joint swelling, calf tenderness Back exam: Present: normal inspection Neurological exam: Present: alert, oriented X3, CN II-XII intact Psychiatric exam: Present: normal affect, normal mood Skin exam: Present: warm, dry, intact, normal color. Absent: rash Course Vital Signs 09/01/24 09/01/24 09/01/24 20:03 21:39 22:24 Temperature 97.3 F L Pulse Rate 70 86 75 Respiratory 18 18 18 Rate Blood Pressure 136/87 130/93 128/85 O2 Sat by Pulse 95 96 96 Oximetry - Reevaluation(s) Reevaluation #1: Medical records reviewed Reevaluation #2: Patient symptoms continue to improve here in the ER Reevaluation #3: Patient informed of results and questions answered Reevaluation #4: Was pt. sent in by a medical professional or institution (, ALICIA, TETRYL NITRATOR OPERATOR, urgent care, hospital, or fci...) When possible be specific @ -no Did you speak to anyone other than the patient for history (EMS, parent, family, police, friend...)? What history was obtained from this source @ -no Did you review nursing and triage notes (agree or disagree)? Why? @ -agree Are old charts reviewed (outside hosp., previous admission, EMS record, old EKG, old radiological studies, urgent care reports/EKG's, fci records)? Report findings @ -yes Differential Diagnosis (chest pain, altered mental status, abdominal pain women, abdominal pain men, vaginal bleeding, weakness, fever, dyspnea, syncope, headache, dizziness, GI bleed, back pain, seizure, CVA, palpatations, mental health, musculoskeletal)? @ -prior EKG interpreted by me (3pts min.). @ -yes X-rays interpreted by me (1pt min.). @ -no CT interpreted by me (1pt min.). @ -no U/S interpreted by me (1pt. min.). @ -no What testing was considered but not performed or refused? (CT, X-rays, U/S, labs)? Why? @ -none What meds were considered but not given or refused? Why? @ -none Did you discuss the management of the patient with other professionals (professionals i.e. , ALICIA, TETRYL NITRATOR OPERATOR, lab, RT, psych nurse, social sciences chair, cotton stripper, teacher, financial officer, porter sample case)? Give summary @ -no Was smoking cessation discussed for >3mins.? @ -no Was critical care preformed (if so, how long)? @ -no Were there social determinants of health that impacted care today? How? (Homelessness, low income, unemployed, alcoholism, drug addiction, transportation, low edu. Level, literacy, decrease access to med. care, usp, rehab)? @ -none Was there de-escalation of care discussed even if they declined (Discuss DNR or withdrawal of care, Hospice)? DNR status @ -no What co-morbidities impacted this encounter? (DM, HTN, Smoking, COPD, CAD, Cancer, CVA, ARF, Chemo, Hep., AIDS, mental health diagnosis, sleep apnea, morbid obesity)? @ -none Was patient admitted / discharged? Hospital course, mention meds given and route, prescriptions, significant lab abnormalities, going to OR and other pertinent info. @ - 84 female to ER for evaluation of weakness, lower extremity cellulitis will continue outpatient treatment. Lab testing normal EKG negative patient can be discharged home Discharge Undiagnosed new problem with uncertain prognosis? @ -no Drug Therapy requiring intensive monitoring for toxicity (Heparin, Nitro, Insulin, Cardizem)? @ -no Were any procedures done? @ -no Diagnosis/symptom? @ -Weakness Acute, or Chronic, or Acute on Chronic? @ -Acute Uncomplicated (without systemic symptoms) or Complicated (systemic symptoms)? @ -Complicated Side effects of treatment? @ -no Exacerbation, Progression, or Severe Exacerbation? @ -exacerbation Poses a threat to life or bodily function? How? (Chest pain, [place], NE, pneumonia, PE, COPD, DKA, ARF, appy, cholecystitis, CVA, Diverticulitis, Homicidal, Suicidal, threat to staff... and all critical care pts) @ -yes extremes of age Reevaluation #5: Differential Weakness: Hypoglycemia, shock, sepsis, hyponatremia, anemia, infection, NE, ETOH, adverse medicine reaction, overdose, stroke, this is not meant to be an all-inclusive list. EKG Findings - EKG Comments: EKG Findings:: EKG is A-fib 68 QRS 89 QTc 442 - EKG Results: EKG: interpreted by ERMD Medical Decision Making - Medical Decision Making 84 female to ER for evaluation of weakness, lower extremity cellulitis will continue outpatient treatment. Lab testing normal EKG negative patient can be discharged home - Lab Data Result diagrams: 09/01/24 20:31 09/01/24 20:31 Lab Results 09/01/24 09/01/24 09/01/24 Range/Units 20:31 20:31 20:31 WBC 7.79 (4.50-10.00) 10*3/uL RBC 4.82 (4.10-5.20) 10*6/uL Hgb 12.4 (12.0-15.0) g/dL Hct 38.8 (37.2-46.3) % MCV 80.5 (80.0-97.0) fL MCH 25.7 L (27.0-32.0) pg MCHC 32.0 (32.0-37.0) g/dL Plt Count 184 (140-440) 10*3/uL MPV 9.0 L (9.5-12.2) fL Immature Gran % (Auto) 0.5 % Neutrophils % 69.0 % Lymphocytes % 21.2 % Monocytes % 8.0 % Eosinophils % 1.0 % Basophils % 0.3 % Immature Gran # 0.04 (0.00-0.04) 10*3/uL Neutrophils # 5.38 (1.80-7.70) 10*3/uL Lymphocytes # 1.65 (0.90-5.00) 10*3/uL Monocytes # 0.62 (0.20-1.00) 10*3/uL Eosinophils # 0.08 (0.04-0.35) 10*3/uL Basophils # 0.02 (0.00-0.10) 10*3/uL PT 11.5 (10.0-12.5) sec INR 1.0 (<1.2) APTT 25.6 (22.0-30.0) sec Sodium 137 (137-145) mmol/L Potassium 3.5 (3.5-5.1) mmol/L Chloride 105 (98-107) mmol/L Carbon Dioxide 26 (22-30) mmol/L Anion Gap 6 mmol/L BUN 12 (7-17) mg/dL Creatinine 0.75 (0.52-1.04) mg/dL Est GFR (CKD-EPI)AfAm 85 (>60 ml/min/1.73 sqM) Est GFR (CKD-EPI)NonAf 74 (>60 ml/min/1.73 sqM) Glucose 100 H (74-99) mg/dL Plasma Lactic Acid Raphael (0.7-2.0) mmol/L Calcium 10.1 (8.4-10.2) mg/dL Phosphorus 3.4 (2.5-4.5) mg/dL Magnesium 1.5 L (1.6-2.3) mg/dL Total Bilirubin 0.9 (0.2-1.3) mg/dL AST 27 (14-36) U/L ALT 28 (4-34) U/L Alkaline Phosphatase 114 (38-126) U/L Troponin I (0.000-0.034) ng/mL NT-Pro-B Natriuret Pep 1700 pg/mL Total Protein 6.0 L (6.3-8.2) g/dL Albumin 3.5 (3.5-5.0) g/dL TSH 0.821 (0.465-4.680) mIU/L Urine Color Urine Appearance (Clear) Urine pH (5.0-8.0) Ur Specific [place] (1.001-1.035) Urine Protein (Negative) Urine Glucose (UA) (Negative) Urine Ketones (Negative) Urine Blood (Negative) Urine Nitrite (Negative) Urine Bilirubin (Negative) Urine Urobilinogen (<2.0) mg/dL Ur Leukocyte Esterase (Negative) Urine RBC (0-5) /hpf Urine WBC (0-5) /hpf Ur Squamous Epith Cells (0-4) /hpf 09/01/24 09/01/24 09/01/24 Range/Units 20:31 20:31 21:09 WBC (4.50-10.00) 10*3/uL RBC (4.10-5.20) 10*6/uL Hgb (12.0-15.0) g/dL Hct (37.2-46.3) % MCV (80.0-97.0) fL MCH (27.0-32.0) pg MCHC (32.0-37.0) g/dL Plt Count (140-440) 10*3/uL MPV (9.5-12.2) fL Immature Gran % (Auto) % Neutrophils % % Lymphocytes % % Monocytes % % Eosinophils % % Basophils % % Immature Gran # (0.00-0.04) 10*3/uL Neutrophils # (1.80-7.70) 10*3/uL Lymphocytes # (0.90-5.00) 10*3/uL Monocytes # (0.20-1.00) 10*3/uL Eosinophils # (0.04-0.35) 10*3/uL Basophils # (0.00-0.10) 10*3/uL PT (10.0-12.5) sec INR (<1.2) APTT (22.0-30.0) sec Sodium (137-145) mmol/L Potassium (3.5-5.1) mmol/L Chloride (98-107) mmol/L Carbon Dioxide (22-30) mmol/L Anion Gap mmol/L BUN (7-17) mg/dL Creatinine (0.52-1.04) mg/dL Est GFR (CKD-EPI)AfAm (>60 ml/min/1.73 sqM) Est GFR (CKD-EPI)NonAf (>60 ml/min/1.73 sqM) Glucose (74-99) mg/dL Plasma Lactic Acid [place]hael 1.1 (0.7-2.0) mmol/L Calcium (8.4-10.2) mg/dL Phosphorus (2.5-4.5) mg/dL Magnesium (1.6-2.3) mg/dL Total Bilirubin (0.2-1.3) mg/dL AST (14-36) U/L ALT (4-34) U/L Alkaline Phosphatase (38-126) U/L Troponin I <0.012 (0.000-0.034) ng/mL NT-Pro-B Natriuret Pep pg/mL Total Protein (6.3-8.2) g/dL Albumin (3.5-5.0) g/dL TSH (0.465-4.680) mIU/L Urine Color Colorless Urine Appearance Clear (Clear) Urine pH 5.5 (5.0-8.0) Ur Specific [place] 1.003 (1.001-1.035) Urine Protein Negative (Negative) Urine Glucose (UA) Negative (Negative) Urine Ketones Negative (Negative) Urine Blood Negative (Negative) Urine Nitrite Negative (Negative) Urine Bilirubin Negative (Negative) Urine Urobilinogen <2.0 (<2.0) mg/dL Ur Leukocyte Esterase Trace H (Negative) Urine RBC 1 (0-5) /hpf Urine WBC 6 H (0-5) /hpf Ur Squamous Epith Cells <1 (0-4) /hpf - EKG Data -: EKG Interpreted by Me Disposition Clinical Impression: Weakness, Near syncope Disposition: HOME SELF-CARE Condition: Good Instructions (If sedation given, give patient instructions): Weakness (ED) Is patient prescribed a controlled substance at d/c from ED?: No Referrals: Lan Wallace MD [Primary Care Provider] - 1-2 days Time of Disposition: 22:00
[2024-09-01 21:17] LABS: Basophils # (A) 0.02 10*3/uL (0.00-0.10); Basophils % (A) 0.3 %; Eosinophils # (A) 0.08 10*3/uL (0.04-0.35); Eosinophils % (A) 1.0 %; HCT 38.8 % (37.2-46.3); HGB 12.4 g/dL (12.0-15.0); Lymphocytes # (A) 1.65 10*3/uL (0.90-5.00); Lymphocytes % (A) 21.2 %; MCH 25.7 pg (27.0-32.0); MCHC 32.0 g/dL (32.0-37.0); MCV 80.5 fL (80.0-97.0); Monocytes # (A) 0.62 10*3/uL (0.20-1.00); Monocytes % (A) 8.0 %; Neutrophils # (A) 5.38 10*3/uL (1.80-7.70); Neutrophils % (A) 69.0 %; Platelet Count 184 10*3/uL (140-440); RBC 4.82 10*6/uL (4.10-5.20); RDW 16.0 % (11.5-14.5); WBC 7.79 10*3/uL (4.50-10.00)
[2024-09-01 21:26] LABS: INR 1.0 (<1.2); Partial Thromboplastin Time 25.6 sec (22.0-30.0); Prothrombin Time 11.5 sec (10.0-12.5)
[2024-09-01 21:29] LABS: ALT 28 U/L (4-34); AST 27 U/L (14-36); African American GFR (CKD) 85 (>60 ml/min/1.73 sqM); Albumin 3.5 g/dL (3.5-5.0); Alkaline Phosphatase 114 U/L (38-126); Anion Gap 6 mmol/L; Blood Urea Nitrogen 12 mg/dL (7-17); Calcium 10.1 mg/dL (8.4-10.2); Carbon Dioxide 26 mmol/L (22-30); Chloride 105 mmol/L (98-107); Glucose 100 mg/dL (74-99); Magnesium 1.5 mg/dL (1.6-2.3); Non-African American GFR(CKD) 74 (>60 ml/min/1.73 sqM); Potassium 3.5 mmol/L (3.5-5.1); Sodium 137 mmol/L (137-145); Total Protein 6.0 g/dL (6.3-8.2)
[2024-09-01 21:31] LABS: Bilirubin,Urine Negative (Negative); Blood,Urine Negative (Negative); Color,Urine Colorless; Glucose,Urine (UA) Negative (Negative); Ketones,Urine Negative (Negative); Leukocyte Esterase,Urine Trace (Negative); Nitrite,Urine Negative (Negative); PH, Urine 5.5 (5.0-8.0); Protein,Urine Negative (Negative); RBC,Urine 1 /hpf (0-5); Specific Gravity,Urine 1.003 (1.001-1.035); Squamous Epithelial Cell,Urine <1 /hpf (0-4); Urobilinogen,Urine <2.0 mg/dL (<2.0); WBC,Urine 6 /hpf (0-5)
[2024-09-01 21:38] LABS: NT-Pro-B-Type Natriuretic Pept 1700 pg/mL
[2024-09-01] MEDS: ONDANSETRON 4 MG/2 ML VIAL IVP STA (21:41)
[2024-09-01 22:25] VITALS: BP 128/85; PULSE 75
== END 2024-09-01 22:25 | disposition home or self-care (01) ==
LOC: EC 20:03
DX: R53.1 Weakness (principal); R55 Syncope and collapse; Z87.891 Personal history of nicotine dependence; Z88.0 Allergy status to penicillin; Z88.1 Allergy status to other antibiotic agents; Z88.2 Allergy status to sulfonamides; Z88.5 Allergy status to narcotic agent; Z88.8 Allergy status to other drugs, medicaments and biological substances
CPT/HCPCS: 36415; 93005; 83880; 80053; 83605; 83735; 84100; 84443; 84484; 85025; 85610; 85730; 81001; 99285; 96365; J0696